=== PATIENT | female | born 1980 | race Caucasian/White ===

== ENCOUNTER 2023-04-25 23:04 | Observation (INO) | payer SELFPAY ==
[2023-04-25 23:09] VITALS: BP 149/99; PULSE 120; RESP 20; TEMP 36.5; O2SAT 98; BMI 56.7
[2023-04-25 23:15] VITALS: O2SAT 97
[2023-04-25 23:20] VITALS: PULSE 134; RESP 15
--- NOTE | 2023-04-25 23:20 | ECG_ITS ---
The [facility] Test Date: 2023-04-25 Pat Name: DALLAS GARRISON Department: Room: - Gender: Female Event Planning Manager: : 1980 Requested By: Order Number: [id number] Reading MD: MIMI TILLMAN Measurements Intervals [place] Rate: 119 P: 58 DE: 152 QRS: 89 QRSD: 76 T: 30 QT: 296 QTc: 366 Interpretive Statements 1120 Sinus tachycardia 4068 Nonspecific Twave abnormality 9140 abnormal rhythm ECG No previous ECG available for comparison Electronically Signed On 04-26-2023 7:19:34 EST by MIMI TILLMAN
[2023-04-25 23:21] VITALS: PULSE 122; RESP 22
--- NOTE | 2023-04-25 23:39 | ED_ITS ---
HPI - General Adult General Chief complaint: Psychiatric Symptoms Stated complaint: back pain mental crisis Time Seen by Provider: 04/25/23 23:28 Source: patient Mode of arrival: Wheelchair Limitations: no limitations History of Present Illness HPI narrative: patient presents complaining of chronic back and hip pain. Describes PT for her back at least a year ago. States she was prescribed Aqua therapy. States she was homeless and moved to [place] to live with her sister. States 3 months ago her sister was kicked out of the mobile home and left her . states she became suicidal and was taken to [facility] in [place]. States there she was diagnosed with syphilis. describes treatment with [facility] G. states it did not work and she was prescribe an oral agent. States they transferred her to [facility] in [facility] for pneumonia. States she has been at the home ever since until today. She was very unhappy with care at correction. States she was wetting herself in bed because she was not able to get out of bed in time to go to the bathroom and she would spend hours sitting in her urine. States her sister came and got her from the home and brought her here . States she is suicidal. States she is still being treated for syphillis. She continues to have bilat hip and lower back pain. She has been using a walker for at least the past year or longer to ambulate. Became very inactive at the correction and gained weight. Difficult time even using her walker now and has been using a wheelchair. Related Data Home Medications Medication Instructions Recorded Confirmed aripiprazole 5 mg tablet 20 mg PO DAILY 04/25/23 04/25/23 clonazepam 1 mg tablet (Klonopin) 1 mg PO DAILY 04/25/23 04/25/23 duloxetine 60 mg capsule,delayed 60 mg PO DAILY 04/25/23 04/25/23 release (Cymbalta) famotidine 20 mg tablet (Pepcid) 20 mg PO DAILY 04/25/23 04/25/23 gabapentin 100 mg capsule 200 mg PO DAILY 04/25/23 04/25/23 prazosin 1 mg capsule 5 mg PO DAILY 04/25/23 04/25/23 Allergies Allergy/AdvReac Type Severity Reaction Status Date / Time metronidazole [From Flagyl] Allergy Hives Verified 04/25/23 23:16 Review of Systems ROS Status of ROS 10 or more systems reviewed and unremark able except as noted in history and below [facility] Social History Smoking status: Current every day smoker Exam Constitutional Vital Signs, click to edit/add: Last Vital Signs Temp 97.7 F 04/25/23 23:09 Pulse 108 H 04/26/23 06:09 Resp 18 04/26/23 06:09 BP 108/80 04/26/23 06:09 Pulse Ox 96 04/26/23 06:09 O2 Del Method Room Air 04/26/23 06:09 Common normals: no apparent distress, oriented x3 and alert Eye Common normals: EOMs intact bilaterally and conjunctivae normal Chest Common normals: inspection of chest normal and palpation of chest normal Respiratory Common normals: normal respiratory effort, no retractions, no use of accessory muscles and clear to auscultation bilaterally Cardio Common normals: regular rate, regular rhythm, S1 normal heart sound and S2 normal heart sound GI Common normals: Normal to inspection, nondistended, normoactive bowel sounds present, soft to palpation and non-tender Extremity Common normals: normal to inspection and full ROM Neuro Common normals: oriented x3, CN's II-XII intact bilaterally, moves all extremities and no focal motor deficits Psych Mood and affect: depressed mood Course Vital Signs Vital signs: Vital Signs Temperature 97.7 F 04/25/23 23:09 Pulse Rate 120 H 04/25/23 23:09 Respiratory Rate 20 04/25/23 23:09 Blood Pressure 149/99 H 04/25/23 23:09 Pulse Oximetry 98 04/25/23 23:09 Oxygen Delivery Method Room Air 04/25/23 23:09 Temperature 97.7 F 04/25/23 23:09 Pulse Rate 108 H 04/26/23 06:09 Respiratory Rate 18 04/26/23 06:09 Blood Pressure 108/80 04/26/23 06:09 Pulse Oximetry 96 04/26/23 06:09 Oxygen Delivery Method Room Air 04/26/23 06:09 Medical Decision Making [facility] Narrative Medical decision making narrative: patient presents complaining of back pain and hip pain for a year or longer. Just released from [facility] in [facility] because she was not happy with her care. She describes urinating on herself because she was not able to get to the bathroom in time and sitting in her urine for hours at the correction because they were short of staff. Her sister picked her up and brought her here. She has been using a walker for more than a year to assist ambulation and states she is walking less since she has been in the correction. Old xrays here 05/21/22 demo nstrates advanced degenerative changes of hip joints bilat. CT lumbar spine tonight demonstrates mod-severe stenosis , disc protrusion, arthritis . compression of L4 and L5 nerve roots. Labs demonstrate leukocytosis. review of old records demonstrated WBC 23.3 01/24/23 at [facility] and WBC 18 05/25/2022 at this hospital. cxray without pneumonia Patient has normal strength of her lower extremities. States she is able to walk with her walker but only for short distance as her legs become weak. Clinically I suspect her legs become weak from deconditioning. She does not have lower extremities neuropathic symptoms patient is suicidal and Mental health contacted [address] looking for a bed. Care transferred at change of shift to Dr jimenez Lab Data Labs: Lab Results 04/25/23 04/26/23 Range/Units 23:55 00:23 WBC 21.9 H (4.0-11.0) 10^3/uL RBC 5.07 (4.20-5.40) 10^6/uL Hgb 11.8 L (12.0-16.0) g/dL Hct 39.3 (36.0-48.0) % MCV 77.5 L (81.0-99.0) fL MCH 23.3 L (26.7-34.0) pg MCHC 30.0 (29.9-35.2) g/dL RDW 17.2 H (11.0-15.0) % Plt Count 534 H (150-450) 10^3/uL MPV 9.6 (9.5-13.5) fL Neut % (Auto) 71.4 (43.0-75.0) % Lymph % (Auto) 17.1 L (20.5-60.0) % [place] % (Auto) 7.9 (1.7-12.0) % Eos % (Auto) 1.8 (0.9-7.0) % Baso % (Auto) 0.8 (0.2-2.0) % Neut # (Auto) 15.7 H (1.4-6.5) 10^3/uL Lymph # (Auto) 3.7 (1.2-3.8) 10^3/uL [place] # (Auto) 1.7 H (0.3-0.8) 10^3/uL Eos # (Auto) 0.4 (0.0-0.7) 10^3/uL Baso # (Auto) 0.2 H (0.0-0.1) 10^3/uL Abs Immat Gran (auto) 0.22 H (0.00-0.03) 10^3/uL Imm/Tot Granulo (auto) 1.0 H (0.0-0.5) % Sodium 139 (136-145) mmol/L Potassium 4.1 (3.5-5.1) mmol/L Chloride 102 (98-107) mmol/L Carbon Dioxide 24.3 (21.0-32.0) mmol/L Anion Gap 16.8 BUN 20.0 H (7.0-18.0) mg/dL Creatinine 0.80 (0.55-1.02) mg/dL Est GFR ( Amer) >60 (>=60) Est GFR (Non-Af Amer) >60 (>=60) BUN/Creatinine Ratio 25.0 Glucose 122 H (74-106) mg/dL Calcium 9.4 (8.5-10.1) mg/dL Total Bilirubin 0.2 (0.2-1.0) mg/dL AST 12 L (15-37) U/L ALT 18 (14-59) U/L Alkaline Phosphatase 57 (46-116) U/L Troponin I High Sens <4.0 L (4.0-51.3) pg/mL Total Protein 8.3 H (6.4-8.2) g/dL Albumin 3.2 L (3.4-5.0) g/dL Globulin 5.1 g/dL Albumin/Globulin Ratio 0.6 Urine Color Lt. yellow (YELLOW) Urine Clarity Clear (CLEAR) Urine pH 5.0 (5.0-9.0) Ur Specific [place] 1.025 (1.005-1.025) Urine Protein Negative (NEG/TRACE) mg/dL Urine Glucose (UA) Negative (NEGATIVE) mg/dL Urine Ketones Negative (NEGATIVE) mg/dL Urine Occult Blood Negative (NEGATIVE) Urine Nitrite Negative (NEGATIVE) Urine Bilirubin Negative (NEGATIVE) Urine Urobilinogen 0.2 (0.2-1.0) EU/dL Ur Leukocyte Esterase Trace A (NEGATIVE) Urine RBC 0-2 (0-2) #/HPF Urine WBC 0-2 A (NONE SEEN) #/HPF Ur Squamous Epith Cells Rare (NONE/RARE) #/LPF Urine Crystals None seen (None Seen) #/HPF Urine Bacteria None seen (NONE SEEN) #/HPF Urine Casts None seen (NONE SEEN) #/LPF Urine Mucus None seen (NONE SEEN) Salicylates 3.6 (<=19.9) mg/dL Urine Opiates Screen Negative (NEGATIVE) Ur Buprenorphine Scrn Negative (NEGATIVE) Ur Oxycodone Screen Negative (NEGATIVE) Urine Methadone Screen Negative (NEGATIVE) Acetaminophen <2.0 L (10.0-30.0) ug/mL Ur Barbiturates Screen Negative (NEGATIVE) U Tricyclic Antidepress Negative (NEGATIVE) Ur Phencyclidine Scrn Negative (NEGATIVE) Ur Amphetamines Screen Negative (NEGATIVE) U Methamphetamines Scrn Negative (NEGATIVE) U Benzodiazepines Scrn Negative (NEGATIVE) Urine Cocaine Screen Negative (NEGATIVE) U Cannabinoids Screen Positive A (NEGATIVE) Ethanol Quant <3 mg/dL Imaging Data Chest x-ray: Radiologist's impression: ITS Impressions Lumbar Spine CT 04/25/23 23:47 IMPRESSION: 1. Multilevel degenerative changes with stenosis worse at the levels of L4-5 and L3-4. Please see the detailed discussion of the individual levels in the body of this report. 2. Left, lateral, intraforaminal protrusion type disc herniation at L5-S1. 2. No fracture or bony displacement. Electronically authenticated by: VERITO CALDWELL Date: 04/26/2023 00:[address] 04/25/23 23:47 IMPRESSION: 1. Advanced, end-stage degenerative changes of both hip joints with no acute osseous abnormality seen. 2. Right adnexal cystic structures measuring up to 3.2 cm. These could be further evaluated with a pelvic ultrasound examination if clinically indicated. Electronically authenticated by: Donna GEORGES Date: 04/26/2023 01:12 Chest X-Ray 04/26/23 01:24 IMPRESSION: 1. Bibasilar airspace opacities are felt to represent atelectasis as the imaged lungs on the CT lumbar spine examination of the same date are clear. 2. There is a 1.3 cm nodular density in the left lower lung, concerning for a pulmonary nodule. This could be further evaluated with a CT of the chest as clinically indicated. Electronically authenticated by: Dnona GEORGES Date: 04/26/2023 02:16 Discharge Plan Discharge Chief Complaint: Psychiatric Symptoms Clinical Impression: Suicidal ideation, Depression, Leukocytosis, Degenerative arthritis of hip, Chronic bilateral low back pain Patient Disposition: Still a Patient Prescriptions / Home Meds: No Action aripiprazole 5 mg tablet 20 mg PO DAILY prazosin 1 mg capsule 5 mg PO DAILY duloxetine [Cymbalta] 60 mg capsule,delayed release(DR/EC) 60 mg PO DAILY clonazepam [Klonopin] 1 mg tablet 1 mg PO DAILY gabapentin 100 mg capsule 200 mg PO DAILY famotidine [Pepcid] 20 mg tablet 20 mg PO DAILY Referrals: DEMETRIA PHILLIPS APRN [Physician] - 1 week
--- NOTE | 2023-04-25 23:47 | CT_ITS ---
The [address] [address] Patient Name: DALLAS GARRISON MRN: [id number] date: 1980 Sex: F Assigned Patient Location: ER Current Patient Location: ER Accession/Order Number: [id number] Exam Date: 04/25/2023 23:59 Report Date: 04/26/2023 01:12 At the request of: SAJI LERMA Procedure: CT pelvis wo con EXAM: CT pelvis wo con HISTORY: pain COMPARISON: None. TECHNIQUE: Noncontrast axial CT images through the pelvis were obtained with coronal and sagittal reformats. Dose reduction techniques were achieved by using automated exposure control and/or adjustment of mA and/or kV according to patient size and/or use of iterative reconstruction technique. FINDINGS: No acute fracture or dislocation is seen. The femoral heads are well-seated in the acetabula. There are advanced, end-stage degenerative changes of both hip joints. There are mild degenerative changes of both sacroiliac joints and the pubic symphysis. There is no disproportionate fatty muscular atrophy about the pelvis. No evidence of bowel obstruction is seen in the imaged lower abdomen or pelvis. The uterus is present. There are a couple right adnexal cystic structures measuring up to 3.2 x 3.1 cm (series 3, image 39). CT/CT pelvis wo con IMPRESSION: 1. Advanced, end-stage degenerative changes of both hip joints with no acute osseous abnormality seen. 2. Right adnexal cystic structures measuring up to 3.2 cm. These could be further evaluated with a pelvic ultrasound examination if clinically indicated. Electronically authenticated by: Donna GEORGES Date: 04/26/2023 01:12
--- NOTE | 2023-04-25 23:47 | CT_ITS ---
[address] [address] Patient Name: DALLAS GARRISON MRN: [id number] date: 1980 Sex: F Assigned Patient Location: ER Current Patient Location: .[facility] Accession/Order Number: [id number] Exam Date: 04/25/2023 23:59 Report Date: 04/26/2023 00:59 At the request of: SAJI LERMA Procedure: CT lumbar spine wo con CT lumbar spine wo con INDICATION: 42 years old; Female.pain Symptom/Location/Duration: Low back pain. Suicidal ideation. TECHNIQUE: CT of the lumbar spine.Contrast None. Sagittal and coronal images as well as axial reconstructions through the disc spaces were produced. Ionizing radiation dose reduced via iterative reconstruction/FBP blend and body size kV/mA adjustment. COMPARISON: None FINDINGS: POSTOPERATIVE CHANGES: None ALIGNMENT AND LORDOSIS: Loss of normal lumbar lordosis. There is scoliosis concave to the right centered at the L2-L3 level. A rotational component is noted. There is grade 1 degenerative spondylolisthesis at L5-L4 and L4-L5. L3 is positioned 2.16 mm anterior L4. L4 is positioned 3.49 mm anterior to L5. No spondylolysis is appreciated. VERTEBRAE: No fracture or vertebral body collapse is seen. No bone destruction is noted. No asymmetric widening of the facets is appreciated. No lytic or blastic lesions. DISC LEVELS: L1-L2: Anterior osteophyte formation. Disc space narrowing posteriorly. No focal disc herniation or bulging. Central canal, neural foramina, lateral recesses are patent. L2-L3: Vacuum disc degeneration. Disc space narrowing, vertebral endplate degeneration with sclerosis. Anterior osteophyte formation. Facet degeneration. Central canal, neural foramina, lateral recesses are patent. There is rotational deformity associated with scoliosis. L3-L4: Vacuum disc degeneration. Grade 1 degenerative spondylolisthesis. Bilateral facet degeneration with ligamentous thickening. Moderate to severe central canal stenosis. Lateral recesses are patent. Mild left foraminal stenosis. L4-L5: Vacuum disc degeneration. Grade 1 degenerative spondylolisthesis. Facet degeneration bilaterally worse on the right. Pseudodisc bulging with protrusion type disc herniation projecting laterally on the right. Moderate to severe central canal stenosis. Severe right-sided foraminal stenosis with compression of the exiting right L4 nerve root secondary to disc material and osteophyte formation. L5-S1: Left, lateral, intraforaminal protrusion type disc herniation. Compression of the left L5 nerve root. Facet degeneration. Central canal patent. Lateral recesses are narrowed but patent. LOWER THORACIC DISCS: At T11-T12 and T12-L1, disc space narrowing is seen with anterior osteophyte formation. Central canal and neural foramina patent. The study does not visualize the distal cord or conus. OTHER: Posterior paraspinal muscles and psoas muscles are intact. No drainable fluid collection. CT/CT lumbar spine wo con IMPRESSION: 1. Multilevel degenerative changes with stenosis worse at the levels of L4-5 and L3-4. Please see the detailed discussion of the individual levels in the body of this report. 2. Left, lateral, intraforaminal protrusion type disc herniation at L5-S1. 2. No fracture or bony displacement. Electronically authenticated by: VERITO CALDWELL Date: 04/26/2023 00:59
--- NOTE | 2023-04-25 23:50 | PC.NURSE ---
Pt tearful and talks about the pain in her lower back and hips. States that she has been asking for a scan or test to see what is wrong with her back. Pt then states that her mother also had the same problems and then on the table having a repeat back surgery. Pt was able to pivot from the cart to the bed side commode to urinate. Pt was unable to lift own legs onto the cart. Pt assisted with getting legs onto bed but does have pain in the lower back/ tail bone area when legs elevated.
[2023-04-25 23:55] VITALS: BP 116/76
[2023-04-25 23:58] VITALS: BP 116/76; PULSE 106; RESP 20; O2SAT 97
[2023-04-26] VITALS (11 sets, daily range): BP systolic 97–120; BP diastolic 57–81; PULSE 80–108; RESP 16–18; TEMP 36.5; O2SAT 91–96; BMI 56.5
[2023-04-26 00:12] LABS: Bilirubin Urine NEGATIVE (NEGATIVE); Blood Urine NEGATIVE (NEGATIVE); Clarity Urine CLEAR (CLEAR); Color Urine LT. YELLOW (YELLOW); Glucose Urine UA NEGATIVE (NEGATIVE); Ketones Urine NEGATIVE (NEGATIVE); Leukocyte Esterase Urine TRACE (NEGATIVE); Nitrite Urine NEGATIVE (NEGATIVE); Protein Urine NEGATIVE (NEG/TRACE); Specific Gravity Urine 1.025 (1.005-1.025); Urobilinogen Urine 0.2 EU/dL (0.2-1.0)
[2023-04-26 00:13] LABS: Urine Microscopic Indicated YES
[2023-04-26 00:24] LABS: Amphetamine Screen Urine NEGATIVE (NEGATIVE); Bacteria Urine NONE SEEN #/HPF (NONE SEEN); Barbiturates Screen Urine NEGATIVE (NEGATIVE); Benzodiazepines Screen Urine NEGATIVE (NEGATIVE); Buprenorphine Screen Urine NEGATIVE (NEGATIVE); Cannabinoid Screen Urine POSITIVE (NEGATIVE); Cocaine Screen Urine NEGATIVE (NEGATIVE); Methadone Screen Urine NEGATIVE (NEGATIVE); Methamphetamines Screen Urine NEGATIVE (NEGATIVE); Opiate Screen Urine NEGATIVE (NEGATIVE); Oxycodone Screen Urine NEGATIVE (NEGATIVE); Phencyclidine Screen Urine NEGATIVE (NEGATIVE); RBC Urine 0-2 #/HPF (0-2); Tricyclic Antidepressant Urine NEGATIVE (NEGATIVE); WBC Urine 0-2 #/HPF (NONE SEEN)
[2023-04-26 00:25] LABS: Cast Seen? NONE SEEN #/LPF (NONE SEEN); Crystals Seen? None Seen #/HPF (None Seen); Mucus Urine NONE SEEN (NONE SEEN); Squamous Epithelial Cell Urine RARE #/LPF (NONE/RARE)
[2023-04-26 00:32] LABS: Basophils Absolute Auto 0.2 10^3/uL (0.0-0.1); Basophils Percent Auto 0.8 % (0.2-2.0); Eosinophils Absolute Auto 0.4 10^3/uL (0.0-0.7); Eosinophils Percent Auto 1.8 % (0.9-7.0); Hematocrit 39.3 % (36.0-48.0); Hemoglobin 11.8 g/dL (12.0-16.0); Immature Granulocytes Abs Auto 0.22 10^3/uL (0.00-0.03); Lymphocytes Absolute Auto 3.7 10^3/uL (1.2-3.8); Lymphocytes Percent Auto 17.1 % (20.5-60.0); Mean Corpuscular Hemoglobin 23.3 pg (26.7-34.0); Mean Corpuscular Volume 77.5 fL (81.0-99.0); Mean Platelet Volume 9.6 fL (9.5-13.5); Monocytes Absolute Auto 1.7 10^3/uL (0.3-0.8); Monocytes Percent Auto 7.9 % (1.7-12.0); Neutrophils Absolute Auto 15.7 10^3/uL (1.4-6.5); Neutrophils Percent Auto 71.4 % (43.0-75.0); Platelet Count 534 10^3/uL (150-450); Red Blood Count 5.07 10^6/uL (4.20-5.40); Red Cell Distribution Width 17.2 % (11.0-15.0); White Blood Count 21.9 10^3/uL (4.0-11.0)
[2023-04-26 00:50] LABS: Alanine Aminotransferase 18 U/L (14-59); Albumin Globulin Ratio 0.6; Albumin Level 3.2 g/dL (3.4-5.0); Alkaline Phosphatase 57 U/L (46-116); Anion Gap 16.8; Aspartate Amino Transferase 12 U/L (15-37); Bilirubin Total 0.2 mg/dL (0.2-1.0); Calcium 9.4 mg/dL (8.5-10.1); Carbon Dioxide 24.3 mmol/L (21.0-32.0); Chloride 102 mmol/L (98-107); Estimated GFR (African America >60 (>=60); Estimated GFR (Non-African Ame >60 (>=60); Globulin 5.1 g/dL; Glucose 122 mg/dL (74-106); Potassium 4.1 mmol/L (3.5-5.1); Sodium 139 mmol/L (136-145); Total Protein 8.3 g/dL (6.4-8.2)
[2023-04-26 00:52] LABS: Salicylate 3.6 mg/dL (<=19.9); Troponin I High Sensitivity <4.0 pg/mL (4.0-51.3)
[2023-04-26 00:54] LABS: Acetaminophen <2.0 ug/mL (10.0-30.0); Ethanol <3 mg/dL
[2023-04-26] MEDS: ACETAMINOPHEN 500 MG TABLET 1000 MG PO (00:54)
--- NOTE | 2023-04-26 01:24 | XR_ITS ---
The [address] [address] Patient Name: DALLAS GARRISON MRN: [id number] date: 1980 Sex: F Assigned Patient Location: ER Current Patient Location: ED.MAIN Accession/Order Number: [id number] Exam Date: 04/26/2023 01:44 Report Date: 04/26/2023 02:16 At the request of: SAJI LERMA Procedure: XR chest 2V EXAM: XR chest 2V HISTORY: pneumonia COMPARISON: Correlation is made with lumbar spine CT examination of the same date. TECHNIQUE: 2 views of the chest were obtained. FINDINGS: The cardiac silhouette is normal in size. There are bibasilar opacities. There is a 1.3 cm nodular density in the left lower lung. There is no significant pneumothorax or pleural effusion. No acute osseous abnormality is seen. XR/XR chest 2V IMPRESSION: 1. Bibasilar airspace opacities are felt to represent atelectasis as the imaged lungs on the CT lumbar spine examination of the same date are clear. 2. There is a 1.3 cm nodular density in the left lower lung, concerning for a pulmonary nodule. This could be further evaluated with a CT of the chest as clinically indicated. Electronically authenticated by: Donna GEORGES Date: 04/26/2023 02:16
[2023-04-26] MEDS: KETOROLAC TROMETHAMINE 60 MG/2 ML VIAL IM (08:30)
[2023-04-26] MEDS: ACETAMINOPHEN 325 MG TABLET 650 MG PO (15:24)
[2023-04-26] MEDS: ARIPIPRAZOLE 5 MG TABLET 20 MG PO (16:50)
[2023-04-26] MEDS: GABAPENTIN 100 MG CAPSULE 200 MG PO (16:50)
[2023-04-26] MEDS: CLONAZEPAM 0.5 MG TABLET 1 MG PO (16:51)
[2023-04-26] MEDS: FAMOTIDINE 20 MG TABLET PO (16:51)
[2023-04-26] MEDS: DULOXETINE HCL 60 MG CAPSULE.DR PO (16:51)
[2023-04-26 19:29] LABS: Basophils Absolute Auto 0.1 10^3/uL (0.0-0.1); Basophils Percent Auto 0.9 % (0.2-2.0); Eosinophils Absolute Auto 0.6 10^3/uL (0.0-0.7); Eosinophils Percent Auto 4.5 % (0.9-7.0); Hematocrit 35.8 % (36.0-48.0); Hemoglobin 10.6 g/dL (12.0-16.0); Immature Granulocytes Pct Auto 0.8 % (0.0-0.5); Lymphocytes Absolute Auto 2.9 10^3/uL (1.2-3.8); Lymphocytes Percent Auto 23.1 % (20.5-60.0); Mean Corpuscular HGB Conc 29.6 g/dL (29.9-35.2); Mean Corpuscular Volume 77.7 fL (81.0-99.0); Mean Platelet Volume 9.9 fL (9.5-13.5); Monocytes Absolute Auto 1.7 10^3/uL (0.3-0.8); Monocytes Percent Auto 13.4 % (1.7-12.0); Neutrophils Absolute Auto 7.3 10^3/uL (1.4-6.5); Neutrophils Percent Auto 57.3 % (43.0-75.0); Platelet Count 461 10^3/uL (150-450); Red Blood Count 4.61 10^6/uL (4.20-5.40); Red Cell Distribution Width 17.3 % (11.0-15.0); White Blood Count 12.7 10^3/uL (4.0-11.0)
[2023-04-26] MEDS: 0.9 % SODIUM CHLORIDE 1,000 ML 125 ML IV (19:33)
[2023-04-26 19:41] LABS: Anion Gap 13.2; BUN Creatinine Ratio 43.7; Calcium 9.1 mg/dL (8.5-10.1); Carbon Dioxide 26.1 mmol/L (21.0-32.0); Chloride 106 mmol/L (98-107); Estimated GFR (African America >60 (>=60); Estimated GFR (Non-African Ame >60 (>=60); Glucose 121 mg/dL (74-106); Potassium 4.3 mmol/L (3.5-5.1); Sodium 141 mmol/L (136-145)
[2023-04-26] MEDS: ENOXAPARIN SODIUM 40 MG/0.4 ML SYRINGE SUBQ (22:23)
[2023-04-27] MEDS: METHOCARBAMOL 500 MG TABLET PO ×3 (05:03→21:35)
[2023-04-27] MEDS: GABAPENTIN 300 MG CAPSULE PO ×3 (05:03→21:35)
[2023-04-27 05:15] VITALS: BP 117/69; PULSE 90; RESP 18; TEMP 36.5; O2SAT 95
[2023-04-27 05:32] LABS: Basophils Absolute Auto 0.1 10^3/uL (0.0-0.1); Basophils Percent Auto 0.9 % (0.2-2.0); Eosinophils Absolute Auto 0.7 10^3/uL (0.0-0.7); Eosinophils Percent Auto 5.4 % (0.9-7.0); Hematocrit 35.5 % (36.0-48.0); Hemoglobin 10.3 g/dL (12.0-16.0); Immature Granulocytes Abs Auto 0.13 10^3/uL (0.00-0.03); Lymphocytes Absolute Auto 3.4 10^3/uL (1.2-3.8); Lymphocytes Percent Auto 26.6 % (20.5-60.0); Mean Corpuscular Hemoglobin 22.9 pg (26.7-34.0); Mean Corpuscular Volume 79.1 fL (81.0-99.0); Mean Platelet Volume 10.2 fL (9.5-13.5); Monocytes Absolute Auto 1.4 10^3/uL (0.3-0.8); Monocytes Percent Auto 11.1 % (1.7-12.0); Neutrophils Absolute Auto 7.1 10^3/uL (1.4-6.5); Platelet Count 450 10^3/uL (150-450); Red Blood Count 4.49 10^6/uL (4.20-5.40); Red Cell Distribution Width 17.3 % (11.0-15.0); White Blood Count 12.9 10^3/uL (4.0-11.0)
[2023-04-27 06:04] LABS: Alanine Aminotransferase 13 U/L (14-59); Albumin Globulin Ratio 0.6; Albumin Level 2.5 g/dL (3.4-5.0); Alkaline Phosphatase 45 U/L (46-116); Anion Gap 12.6; Aspartate Amino Transferase 8 U/L (15-37); BUN Creatinine Ratio 34.4; Bilirubin Total 0.2 mg/dL (0.2-1.0); Calcium 8.5 mg/dL (8.5-10.1); Carbon Dioxide 22.4 mmol/L (21.0-32.0); Chloride 107 mmol/L (98-107); Estimated GFR (African America >60 (>=60); Estimated GFR (Non-African Ame >60 (>=60); Globulin 4.1 g/dL; Glucose 97 mg/dL (74-106); Sodium 138 mmol/L (136-145); Total Protein 6.6 g/dL (6.4-8.2)
[2023-04-27] MEDS: LIDOCAINE 5% PATCH 1 PATCH TOPICAL (10:15)
[2023-04-27] MEDS: ARIPIPRAZOLE 5 MG TABLET 20 MG PO (10:16)
[2023-04-27] MEDS: CLONAZEPAM 0.5 MG TABLET 1 MG PO (10:16)
[2023-04-27] MEDS: FAMOTIDINE 20 MG TABLET PO (10:17)
[2023-04-27] MEDS: DULOXETINE HCL 60 MG CAPSULE.DR PO (10:17)
--- NOTE | 2023-04-27 10:35 | CM.NOTE ---
Rounds made with Dr. Epstein, discussed with pt plan of care and need for Medicaid. Pt's sister is bringing paperwork in today for Medicaid. Dr. Epstein requesting pt's records from [facility]( [facility] ) where pt was last treated.
[2023-04-27] MEDS: ACETAMINOPHEN 300 MG/ 30 MG CODEINE TABLET 1 TAB PO (11:13)
--- NOTE | 2023-04-27 11:22 | P.HP_ITS ---
<Statement entered by Kwame Epstein MD - 04/27/23 19:38> Patient seen and examined, agree with assessment and plan below. Not able to ambulate well and weakness in legs for over a year. Severe pain and arthritis. Initially expressed SI but denies intention to hurt self. Not accepted at several inpatient psychiatric facilities. Admitted for PT/OT. medical staff services coordinator consulted. Diagnosis: 1. Degenerative lumbar spinal stenosis 2. Bilateral OA hips 3. Unable to ambulate 4. Leukocytosis 5. Suicidal ideation 6. Borderline personality disorder 7. Bipolar 8. Syphilis H&P: HPI History of Present Illness Chief complaint: back pain mental crisis Inability to ambulate Narrative: 04/27/23 0950 This is a 42-year-old female patient with a past medical history as outlined below including bipolar disorder, schizophrenic disorder, borderline personality disorder, chronic low back and bilateral hip pain with inability to stand and ambulate due to pain; who presented to the ED 2 days ago reporting suicidal ideation. Work up in the ED revealed chronic, degenerative changes of the bilat hips and mod-severe stenosis of the lumbar spine with compression of L4 & L5 nerve roots on CT imaging. Neuropathic symptoms were not identified on exam. CXR revealed BLL atelectasis w/o infiltrate, UA was neg. Leukocytosis as noted on initial labs, but has nearly resolved without any antibiotic treatment as no infectious source was identified and the pt is afebrile. Transfer to a [facility] was initially planned, but a facility could not be found to take her as she could not be independent d/t her inability to walk. After 2 days in the ED pending placement, the pt was no longer suicidal and she was admitted to observation at this facility for back pain, self-care deficit, and inability to ambulate. The patient has a complicated recent medical history. 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 She moved to [place] to live with a sister near [place] about 1 yr ago, and then to [place] to live with a different sister 8 mos ago. While she was living in [place] she apparently became homeless after her sister was evicted from her trailer. She was found by police in the trailer and was transported to an ED for evaluation as the patient was complaining of suicidality at that time. She was admitted to the hospital with sepsis, pneumonia, and UTI, along with suicidal ideation. During that admission an STD workup was obtained and a syphilis screen was positive. ID was consulted and a complete workup was performed. An LP was obtained to rule out neurosyphilis, and CT and MRI imaging of the spine to rule out discitis or epi dural abscess. Imaging of the spine revealed chronic degenerative changes only. An HIV test was nonreactive, hepatitis panel was negative, and C/G was negative. The syphilis RPR was negative and FTA?ABS was positive indicating latent syphilis. The CSF sample was VDRL negative, thus neurosyphilis was ruled out. She was treated with PCN G prior to dc per ID recommendations. She was also seen by psychiatry and started on Abilify in addition to her Cymbalta and her suicidal ideation had apparently resolved. She was discharged to a SNF for rehab strengthening after a nearly 2 week hospitalization, d/t her persistent, severe back pain and limited mobility. She was referred to neurosurgery as an outpatient regarding her lumbar back pain. Unfortunately her insurance lapsed just prior to that appointment and the appointment was cancelled pending new insurance authorization. She also reports that she was seen by Gynecology within the last week and was told that her Syphilis was still there and was prescribed a 28 day course of treatment. We cannot find record of this prescription, but we do not have medical records from the SNF, just from her hospital stay at [facility]. The pt was still at the SNF until just prior to presentation at this ED. She reports dissatisfaction with her care at the SNF, and her sister who lives in [place] picked her up from there on 04/25/23 and brought her directly to our ED, c/o again of suicidal ideation if something isn't done to help me . The pt reports that her sister who lives in [place] is essentially homeless herself, and is staying on a friend's couch. The pt is thus also homeless at this time. At the time of my exam the patient is resting comfortably in bed. She reports severe pain with standing and ambulation attempts. Apparently she was walking reasonably well using a walker while she was still receiving PT services at the SNF, but those were discontinued after 45 days due to insurance issues. More recently she has only been able to stand and pivot and take a few steps due to her severe pain and weakness. She continues to deny active suicidal ideation, but becomes tearful and states she will consider suicide if she cannot find resolution of her severe pain. She will remain in observation pending social work assistance with a Medicaid application in [place], and placement at a [facility] facility. Review of Systems ROS Status of ROS 10 or more systems reviewed and unremark able except as noted in history and below [facility] Medical History (Updated 04/27/23 @ 12:13 by Rubi Rae NP) Bilateral primary osteoarthritis of hip ?M16.0 - Bilateral primary osteoarthritis of hip (ICD-10) Degenerative lumbar spinal stenosis ?M48.061 - Spinal stenosis, lumbar region without neurogenic claudication (ICD-10) Syphilis (acquired) ?A53.9 - Syphilis, unspecified (ICD-10) Unable to ambulate ?R26.2 - Difficulty in walking, not elsewhere classified (ICD-10) Bipolar 1 disorder ?F31.9 - Bipolar disorder, unspecified (ICD-10) Borderline personality disorder ?F60.3 - Borderline personality disorder (ICD-10) Chronic bilateral low back pain ?M54.50 - Low back pain, unspecified (ICD-10) ?G89.29 - Other chronic pain (ICD-10) Degenerative arthritis of hip ?M16.9 - Osteoarthritis of hip, unspecified (ICD-10) Depression ?F32.A - Depression, unspecified (ICD-10) Tuberculosis ?A15.9 - Respiratory tuberculosis unspecified (ICD-10) Herniated disc Arthritis ?M19.90 - Unspecified osteoarthritis, unspecified site (ICD-10) Schizophrenic disorder ?F20.9 - Schizophrenia, unspecified (ICD-10) MRSA (methicillin resistant Staphylococcus aureus) ?A49.02 - Methicillin resistant Staphylococcus aureus infection, unspecified site (ICD-10) Staph infection ?B95.8 - Unspecified staphylococcus as the cause of diseases classified elsewhere (ICD-10) Ectopic ?O00.90 - Unspecified ectopic without intrauterine (ICD- 10) Surgical History Hx of tonsillectomy ?Z90.89 - Acquired absence of other organs (ICD-10) Family History Other Family history of cancer Social History Within the past year, how often did you have a drink containing alcohol: monthly or less Within the past year, how many standard drinks containing alcohol did you have on a typical day: 1 or 2 Within the past year, how often did you have six or more drinks on one occasion: never Total score: 0 Score interpretation: A score less than 3 is consistent with normal alcohol consumption. Smoking status: Current some day smoker Non-prescribed substance use: cannabis (any form) Highest level of school completed/degree received: high school graduate Little interest or pleasure in doing things: more than half the days Feeling down, depressed, or hopeless: more than half the days Feel stressed/tense/nervous/anxious/difficulty sleeping: very much Meds Home Medications and Allergies Home Medications Medication Instructions Recorded Confirmed Type aripiprazole 5 mg tablet 20 mg PO DAILY 04/25/23 04/25/23 History clonazepam 1 mg tablet (Klonopin) 1 mg PO DAILY 04/25/23 04/25/23 History duloxetine 60 mg capsule,delayed 60 mg PO DAILY 04/25/23 04/25/23 History release (Cymbalta) famotidine 20 mg tablet (Pepcid) 20 mg PO DAILY 04/25/23 04/25/23 History gabapentin 100 mg capsule 200 mg PO DAILY 04/25/23 04/25/23 History prazosin 1 mg capsule 5 mg PO DAILY 04/25/23 04/25/23 History acetaminophen 300 mg-codeine 30 mg 1 tab PO Q8H 04/26/23 04/26/23 History tablet acetaminophen 325 mg capsule 325 mg PO Q4H PRN fever or pain 04/26/23 04/26/23 History aripiprazole 20 mg tablet (Abilify) 20 mg PO DAILY 04/26/23 04/26/23 History gabapentin 300 mg capsule 300 mg PO TID 04/26/23 04/26/23 History ibuprofen 800 mg tablet 800 mg PO TID 04/26/23 04/26/23 History lidocaine 4 % topical patch 1 patch topical DAILY 04/26/23 04/26/23 History (Aspercreme (lidocaine)) methocarbamol 500 mg tablet 500 mg PO Q8H 04/26/23 04/26/23 History tramadol 50 mg tablet 50 mg PO Q8H 04/26/23 04/26/23 History Allergies Allergy/AdvReac Type Severity Reaction Status Date / Time metronidazole [From Flagyl] Allergy Hives Verified 04/25/23 23:16 Exam Constitutional Vital Signs, click to edit/add: Last Vital Signs Temp 97.7 F 04/27/23 05:15 Pulse 90 04/27/23 05:15 Resp 18 04/27/23 05:15 BP 117/69 04/27/23 05:15 Pulse Ox 95 04/27/23 05:15 O2 Del Method Room Air 04/27/23 05:15 Common normals: no apparent distress, oriented x3, alert and well nourished General appearance: cooperative Nutritional appearance: obese morbidly obese Orientation/consciousness: Yes awake HENMT Common normals: normocephalic, head/scalp atraumatic, hearing grossly normal bilaterally, external nose normal and moist oral mucous membranes Eye Common normals: PERRL, EOMs intact bilaterally, conjunctivae normal and no scleral icterus Alignment: alignment normal Chest Common normals: inspection of chest normal Chest: symmetrical chest wall rise Respiratory Common normals: normal respiratory effort, no retractions, no use of accessory muscles and clear to auscultation bilaterally Effort & inspection: able to speak in complete sentences Auscultation: diminished lung sounds (BLL) Cardio Common normals: no JVD, regular rate, regular rhythm, S1 normal heart sound, S2 normal heart sound, no gallops, no clicks, no murmurs, no rub and peripheral pulses 2+ throughout GI Common normals: Normal to inspection, nondistended, normoactive bowel sounds present, soft to palpation, non-tender, no hepatosplenomegaly, no masses and no bruits Bladder/kidney exam: bladder normal to palpation Extremity Common normals: normal capillary refill and no pedal edema General: normal exam except as noted; no clubbing and no cyanosis Neuro Angle Inlet Coma Scale: GCS not evaluated Common normals: CN's II-XII intact bilaterally, moves all extremities, no focal motor deficits and no sensory deficits noted Speech: speech normal Psych Common normals: mental status grossly normal, thought process normal, affect normal and activity/motor behavior normal Mood and affect: depressed mood and tearful Results Labs Labs: Short CBC 04/26/23 04/27/23 Range/Units 19:20 05:02 WBC 12.7 H 12.9 H (4.0-11.0) 10^3/uL Hgb 10.6 L 10.3 L (12.0-16.0) g/dL Hct 35.8 L 35.5 L (36.0-48.0) % Plt Count 461 H 450 (150-450) 10^3/uL BMP 04/26/23 04/27/23 19:20 05:02 Sodium 141 138 Potassium 4.3 4.0 Chloride 106 107 Carbon Dioxide 26.1 22.4 BUN 31.0 H 21.0 H Creatinine 0.71 0.61 Glucose 121 H 97 Calcium 9.1 8.5 Liver Function 04/27/23 Range/Units 05:02 Total Bilirubin 0.2 (0.2-1.0) mg/dL AST 8 L (15-37) U/L ALT 13 L (14-59) U/L Alkaline Phosphatase 45 L (46-116) U/L Albumin 2.5 L (3.4-5.0) g/dL Pulse Oximetry Attestation: I have reviewed the pertinent pulse oximetry results. Assessment and Plan Assessment and Plan (1) Unable to ambulate: Assessment and Plan: CHRONIC * Adm obs * d/t degenerative lumbar stenosis and severe DJD of bilat hips * PT/OT consults for eval and treatment * Consult SS for assistance w/ medicaid application and SNF referral (2) Degenerative lumbar spinal stenosis: Assessment and Plan: CHRONIC * Continue previous PRN tx w/ Robaxin, T3, Tramadol. Lidocaine patch daily. * PT/OT eval and treat * Likely re-initiate a referral to neuro spine after discharge (3) Leukocytosis: Assessment and Plan: ACUTE on CHRONIC * No identified infectious source - CXR and UA neg * BC x 2 pending * Pt remains afebrile * Leukocytosis trending down * No ABX at this time * CBC, CMP daily (4) Suicidal ideation: Assessment and Plan: ACUTE ON CHRONIC * Resolved while still in ED * Pt reports suicidal thoughts d/t chronic pain and inability to care for self. Denies current ideation (5) Bipolar 1 disorder: Assessment and Plan: CHRONIC * Continue home Cymbalta, abilify, and Klonopin (6) Schizophrenic disorder: Assessment and Plan: CHRONIC * See bipolar disorder (7) Borderline personality disorder: Assessment and Plan: CHRONIC * See bipolar disorder (8) Syphilis (acquired): Assessment and Plan: CHRONIC * Start Doxycycline 100 mg BID x 28 day course for suspected persistent latent syphilis. * No identifiable symptoms of active syphilis * Attempt to obtain records from [facility] ([place])
[2023-04-27 13:33] VITALS: BP 104/72; PULSE 97; RESP 18; TEMP 36.6; O2SAT 93
[2023-04-27] MEDS: DOXYCYCLINE MONOHYDRATE 100 MG CAPSULE PO ×2 (13:42→21:35)
--- NOTE | 2023-04-27 13:59 | CM.NOTE ---
Spoke with pt regarding Medicaid application, pt was waiting for sister to come in to assist her with filling out application. Pt's sister unable to come to hospital d/t having no money to afford to put gas into vehicle. Medicaid application printed out for patient and will assist her in completing application.
--- NOTE | 2023-04-27 14:20 | CM.NOTE ---
Faxed Medicaid application to [employer].
--- NOTE | 2023-04-27 14:20 | SWNOTE1 ---
MIRTHA has been speaking with case management. Pt is a self pay, looking for placement. Pt did complete medicaid application, it was faxed over to [employer]. MIRTHA did reach out to Becky at [employer] and [facility] services in regards to this patient to see if there was anything we could do to speed up the process. MIRTHA called and spoke to Marifer at [facility], they will look over referral and she will see what the business office says in regards to pending medicaid.
--- NOTE | 2023-04-27 14:29 | CM.NOTE ---
Faxed Doctor's progress notes, vitals, labs, x-rays, PT and OT notes to [facility] for new referral.
--- NOTE | 2023-04-27 15:32 | SWNOTE1 ---
SW received call back from [facility] and they are not able to accept as they feel like they can not care for her properly and she needs a facility that can help with her psych history.
--- NOTE | 2023-04-27 15:44 | SWNOTE1 ---
[facility] recommended [facility] as they have proper psych assistance at facility. MIRTHA sent referral to [facility]. MIRTHA spoke with Rashmi at central intake and she will look for referral. MIRTHA sent face sheet, er note, physician notes, labs, vitals, med list, PT/OT.
[2023-04-27 21:07] VITALS: BP 100/61; PULSE 93; RESP 18; TEMP 37.1; O2SAT 93
[2023-04-28 04:57] LABS: Basophils Absolute Auto 0.2 10^3/uL (0.0-0.1); Basophils Percent Auto 1.1 % (0.2-2.0); Eosinophils Absolute Auto 0.7 10^3/uL (0.0-0.7); Eosinophils Percent Auto 4.8 % (0.9-7.0); Hematocrit 35.1 % (36.0-48.0); Hemoglobin 10.4 g/dL (12.0-16.0); Immature Granulocytes Abs Auto 0.14 10^3/uL (0.00-0.03); Immature Granulocytes Pct Auto 0.9 % (0.0-0.5); Lymphocytes Percent Auto 26.7 % (20.5-60.0); Mean Corpuscular HGB Conc 29.6 g/dL (29.9-35.2); Mean Corpuscular Hemoglobin 23.4 pg (26.7-34.0); Mean Corpuscular Volume 78.9 fL (81.0-99.0); Monocytes Absolute Auto 1.8 10^3/uL (0.3-0.8); Monocytes Percent Auto 11.9 % (1.7-12.0); Neutrophils Absolute Auto 8.2 10^3/uL (1.4-6.5); Neutrophils Percent Auto 54.6 % (43.0-75.0); Platelet Count 453 10^3/uL (150-450); Red Blood Count 4.45 10^6/uL (4.20-5.40); Red Cell Distribution Width 17.3 % (11.0-15.0); White Blood Count 15.1 10^3/uL (4.0-11.0)
[2023-04-28] MEDS: GABAPENTIN 300 MG CAPSULE PO (05:27)
[2023-04-28] MEDS: METHOCARBAMOL 500 MG TABLET PO ×3 (05:27→21:24)
[2023-04-28 05:30] LABS: Alanine Aminotransferase 17 U/L (14-59); Albumin Globulin Ratio 0.6; Albumin Level 2.6 g/dL (3.4-5.0); Alkaline Phosphatase 45 U/L (46-116); Anion Gap 12.5; Aspartate Amino Transferase 8 U/L (15-37); BUN Creatinine Ratio 31.8; Bilirubin Total 0.2 mg/dL (0.2-1.0); Calcium 8.7 mg/dL (8.5-10.1); Carbon Dioxide 25.6 mmol/L (21.0-32.0); Chloride 107 mmol/L (98-107); Estimated GFR (African America >60 (>=60); Estimated GFR (Non-African Ame >60 (>=60); Globulin 4.2 g/dL; Glucose 95 mg/dL (74-106); Potassium 4.1 mmol/L (3.5-5.1); Sodium 141 mmol/L (136-145); Total Protein 6.8 g/dL (6.4-8.2)
[2023-04-28 05:33] VITALS: BP 117/74; PULSE 79; RESP 18; TEMP 36.6; O2SAT 94
[2023-04-28 08:27] VITALS: BP 132/79; PULSE 106; RESP 18; TEMP 36.6; O2SAT 92
--- NOTE | 2023-04-28 08:58 | CM.NOTE ---
Updated pt that [facility] was unable to take her pending Medicaid. Explained to pt referral now sent to [facility], pt verbalizes understanding.
[2023-04-28] MEDS: ARIPIPRAZOLE 5 MG TABLET 20 MG PO (09:57)
[2023-04-28] MEDS: LIDOCAINE 5% PATCH 1 PATCH TOPICAL (09:57)
[2023-04-28] MEDS: DULOXETINE HCL 60 MG CAPSULE.DR PO ×2 (09:58→21:24)
[2023-04-28] MEDS: FAMOTIDINE 20 MG TABLET PO (09:58)
[2023-04-28] MEDS: TRAMADOL HCL 50 MG TABLET PO (09:58)
[2023-04-28] MEDS: CLONAZEPAM 0.5 MG TABLET 1 MG PO (09:58)
[2023-04-28] MEDS: DOXYCYCLINE MONOHYDRATE 100 MG CAPSULE PO (09:58)
--- NOTE | 2023-04-28 10:35 | SWNOTE1 ---
MIRTHA called and left message for Rashmi at [facility]. MIRTHA called Charla at [facility] and she just now was able to pull up referral and will review. MIRTHA and Charla spoke about pt and her needs. Charla is going to email MIRTHA a form that there billers will need in regards to medicaid so they can check to see if she qualifies.
--- NOTE | 2023-04-28 10:52 | SWNOTE1 ---
MIRTHA printed forms for pt to fill out and MIRTHA will send back to Charla at [facility] once they are completed.
--- NOTE | 2023-04-28 11:22 | CM.NOTE ---
Rounds made with Dr. Epstein, discussed adjusting medications for pain control. Continue PT for strengthening.
--- NOTE | 2023-04-28 11:24 | REH.PTDLY ---
Physical Therapy Daily Note PT Daily Note/Assess Start: 04/27/23 09:42 Freq: Status: Active Protocol: Document 04/28/23 11:12 [email or web address] (Rec: 04/28/23 11:24 KARELY [id number]) Physical Therapy Daily Note/Assessment Time In 10:43 Time Out 10:54 Subjective Pt reports she just got back into bed 3 minutes ago from sitting in chair, back and hip pain is really bad right now per pt. Pt reports she will do therapy though. Therapeutic Exercise Minutes (minutes) 4 Therapeutic Exercise Units 0 Therapeutic Exercise Treatment Instructed in seated LAQ, marching, and hip abd 10x ea with B LEs sitting at EOB for postural strength as well. Therapeutic Activity Minutes (minutes) 7 Therapeutic Activity Units 1 Bed Mobility Ability Moderate Assist Chair Transfer Ability Standby Assistance Therapeutic Activity Comments Pt able to perform supine to sit transfers SBA with use of bed rails. Sit to stand transfer SBA. Gait training with pt leaning on forearms with RW due to pain ambulating 5 feet and then having to sit down because of pain. Pt then stands again and ambulates 5 feet back to bed. Requires Mod A with B LEs with sit to supine transfer. Total Therapy Minutes 11 Total Physical Therapy Units 1 Daily Note Summary Pt has high pain levels at this time limiting gait tolerance. Pt almost in tears as she gets back to bed post rx, states 'a person shouldn't have to feel this bad.' Pt hoping to go to SNF upon DC to regain strength and stamina.
--- NOTE | 2023-04-28 12:26 | P.PN_ITS ---
<Statement entered by Kwame Epstein MD - 04/28/23 13:11> Patient seen and examined, agree with assessment and plan below. Continues to c/o pain. Reviewed records and resumed oral doxycycline for syphylis. Started PT/OT. Information sent to SNF for placement. Increase neurontin and try norco for pain. Diagnosis: 1. Degenerative lumbar spinal stenosis 2. Bilateral OA hips 3. Unable to ambulate 4. Leukocytosis 5. Suicidal ideation 6. Borderline personality disorder 7. Bipolar 8. Syphilis Progress Note: Subjective Subjective Interval history: 04/28/23 1010 The patient is sitting up in a bedside chair at the time of my exam. Overall, her affect and mood is improved since yesterday. She continues to complain of severe pain with standing and ambulation to her lumbar spine and bilateral hips. She was seen in consult by PT/OT and recommendations are noted. After con ferring with my attending physician, Dr. Epstein, we will increase her home gabapentin dose to 600 mg 3 times daily, and change her as needed pain medication to Dodson. Will continue her home Lidoderm patch as previously prescribed. The patient completed her Medicaid application yesterday and it was faxed by social work supervisor to the appropriate agencies. A referral has been sent to a local SNF with acceptance still pending. Exam Constitutional Vital Signs, click to edit/add: Last Vital Signs Temp 97.9 F 04/28/23 08:27 Pulse 106 H 04/28/23 08:27 Resp 18 04/28/23 08:27 BP 132/79 04/28/23 08:27 Pulse Ox 92 L 04/28/23 08:27 O2 Del Method Room Air 04/28/23 08:27 Common normals: no apparent distress, oriented x3 and alert General appearance: cooperative Orientation/consciousness: Yes awake HENMT Common normals: normocephalic, head/scalp atraumatic and hearing grossly normal bilaterally Eye Common normals: PERRL, EOMs intact bilaterally, conjunctivae normal and no scleral icterus General eye: normal appearance of both eyes Chest Common normals: inspection of chest normal Chest: symmetrical chest wall rise Respiratory Common normals: normal respiratory effort, no use of accessory muscles and clear to auscultation bilaterally Effort & inspection: able to speak in complete sentences Cardio Common normals: regular rate, regular rhythm, S1 normal heart sound, S2 normal heart sound, no murmurs and peripheral pulses 2+ throughout GI Common normals: Normal to inspection, nondistended, normoactive bowel sounds present, soft to palpation, non-tender and no hepatosplenomegaly Bladder/kidney exam: bladder normal to palpation Extremity Common normals: normal to inspection and no calf tenderness General: edema (Trace bilat insteps); no clubbing and no cyanosis Neuro Common normals: CN's II-XII intact bilaterally, moves all extremities, no focal motor deficits and no sensory deficits noted Psych Common normals: mental status grossly normal Progress Note: Objective Labs Labs: Short CBC 04/28/23 Range/Units 04:26 WBC 15.1 H (4.0-11.0) 10^3/uL Hgb 10.4 L (12.0-16.0) g/dL Hct 35.1 L (36.0-48.0) % Plt Count 453 H (150-450) 10^3/uL BMP 04/28/23 04:26 Sodium 141 Potassium 4.1 Chloride 107 Carbon Dioxide 25.6 BUN 21.0 H Creatinine 0.66 Glucose 95 Calcium 8.7 Liver Function 04/28/23 Range/Units 04:26 Total Bilirubin 0.2 (0.2-1.0) mg/dL AST 8 L (15-37) U/L ALT 17 (14-59) U/L Alkaline Phosphatase 45 L (46-116) U/L Albumin 2.6 L (3.4-5.0) g/dL Progress Note: A&P Assessment and Plan (1) Unable to ambulate: Assessment and Plan: CHRONIC * d/t chronic degenerative lumbar stenosis (w/ L4 nerve root compression) and severe DJD of bilat hips, complicated by morbid obesity * PT/OT consults for eval and treatment * Consult SS for assistance w/ medicaid application and SNF referral - pending (2) Degenerative lumbar spinal stenosis: Assessment and Plan: CHRONIC * Continue home Robaxin and Lidocaine patch * Increase home gabapentin to 600 mg TID * D/C home PRN tramadol/T3s * Start Dodson 5/325 QID PRN - monitor response * PT/OT eval and treat * Likely re-initiate a referral to neuro spine after discharge (3) Leukocytosis: Assessment and Plan: ACUTE on CHRONIC * No identified infectious source - CXR and UA neg * BC x 2 still pending * Pt remains afebrile * Leukocytosis trending up today - see Syphilis below * CBC, CMP daily (4) Suicidal ideation: Assessment and Plan: ACUTE ON CHRONIC * Resolved while still in ED * Pt reports suicidal thoughts d/t chronic pain and inability to care for self. * Continues to deny current ideation (5) Bipolar 1 disorder: Assessment and Plan: CHRONIC * Continue home Cymbalta, Abilify, and Klonopin (6) Schizoaffective disorder: Assessment and Plan: CHRONIC * See bipolar disorder (7) Syphilis (acquired): Assessment and Plan: CHRONIC * Continue Doxycycline 100 mg BID x 28 day course for suspected persistent latent syphilis. * No identifiable symptoms of active syphilis * Records from [facility] ([place]) were obtained today which confirm Doxy prescription was ordered x 28 days, last dose due on 04/21/23 (8) Major depressive disorder, recurrent: Assessment and Plan: CHRONIC * See BiPolar disorder
--- NOTE | 2023-04-28 13:01 | SWNOTE1 ---
SW went back in room and got the paperwork from pt and sent to [place].
[2023-04-28 13:24] VITALS: BP 103/62; PULSE 96; RESP 18; TEMP 36.8; O2SAT 93
[2023-04-28] MEDS: GABAPENTIN 300 MG CAPSULE 600 MG PO ×2 (13:32→21:24)
--- NOTE | 2023-04-28 14:50 | SWNOTE1 ---
MIRTHA called Charla at [facility] to check on referral. 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 Charla called the facility and pt just left the facility on April 25 and came here on the . She voiced pt still has [place] medicaid and she is not sure how this will affect things. Charla will call once they have finished reviewing and have an answer in regards to the medicaid.
[2023-04-28] MEDS: HYDROCODONE/ACET 5-325 MG TABLET 1 TAB PO (17:20)
[2023-04-28 19:28] VITALS: RESP 18
[2023-04-28 21:42] VITALS: BP 121/56; PULSE 86; RESP 16; TEMP 37.2; O2SAT 98
[2023-04-29] MEDS: HYDROCODONE/ACET 5-325 MG TABLET 1 TAB PO ×2 (01:51→08:41)
[2023-04-29] MEDS: METHOCARBAMOL 500 MG TABLET PO ×3 (05:18→20:27)
[2023-04-29] MEDS: GABAPENTIN 300 MG CAPSULE 600 MG PO ×3 (05:18→20:26)
[2023-04-29 05:36] VITALS: BP 171/99; PULSE 87; RESP 18; TEMP 36.6; O2SAT 92
[2023-04-29 05:44] LABS: Alanine Aminotransferase 14 U/L (14-59); Albumin Globulin Ratio 0.6; Albumin Level 2.6 g/dL (3.4-5.0); Alkaline Phosphatase 46 U/L (46-116); Anion Gap 14.4; Aspartate Amino Transferase 8 U/L (15-37); BUN Creatinine Ratio 34.3; Bilirubin Total 0.2 mg/dL (0.2-1.0); Calcium 8.6 mg/dL (8.5-10.1); Carbon Dioxide 24.5 mmol/L (21.0-32.0); Chloride 106 mmol/L (98-107); Estimated GFR (African America >60 (>=60); Estimated GFR (Non-African Ame >60 (>=60); Globulin 4.3 g/dL; Glucose 93 mg/dL (74-106); Potassium 3.9 mmol/L (3.5-5.1); Sodium 141 mmol/L (136-145); Total Protein 6.9 g/dL (6.4-8.2)
[2023-04-29 05:48] LABS: Basophils Absolute Auto 0.2 10^3/uL (0.0-0.1); Basophils Percent Auto 1.4 % (0.2-2.0); Eosinophils Absolute Auto 0.7 10^3/uL (0.0-0.7); Eosinophils Percent Auto 4.8 % (0.9-7.0); Hematocrit 35.8 % (36.0-48.0); Hemoglobin 10.6 g/dL (12.0-16.0); Immature Granulocytes Abs Auto 0.13 10^3/uL (0.00-0.03); Immature Granulocytes Pct Auto 0.9 % (0.0-0.5); Lymphocytes Absolute Auto 3.8 10^3/uL (1.2-3.8); Lymphocytes Percent Auto 25.7 % (20.5-60.0); Mean Corpuscular HGB Conc 29.6 g/dL (29.9-35.2); Mean Corpuscular Hemoglobin 23.5 pg (26.7-34.0); Mean Corpuscular Volume 79.4 fL (81.0-99.0); Mean Platelet Volume 10.3 fL (9.5-13.5); Monocytes Absolute Auto 1.5 10^3/uL (0.3-0.8); Monocytes Percent Auto 10.4 % (1.7-12.0); Neutrophils Absolute Auto 8.3 10^3/uL (1.4-6.5); Neutrophils Percent Auto 56.8 % (43.0-75.0); Platelet Count 445 10^3/uL (150-450); Red Blood Count 4.51 10^6/uL (4.20-5.40); Red Cell Distribution Width 17.5 % (11.0-15.0); White Blood Count 14.7 10^3/uL (4.0-11.0)
[2023-04-29] MEDS: IBUPROFEN 400 MG TABLET 800 MG PO (08:41)
[2023-04-29] MEDS: ARIPIPRAZOLE 5 MG TABLET 20 MG PO (08:41)
[2023-04-29] MEDS: CLONAZEPAM 0.5 MG TABLET 1 MG PO (08:41)
[2023-04-29] MEDS: FAMOTIDINE 20 MG TABLET PO (08:41)
[2023-04-29] MEDS: DULOXETINE HCL 60 MG CAPSULE.DR PO ×2 (08:41→20:26)
[2023-04-29] MEDS: LIDOCAINE 5% PATCH 1 PATCH TOPICAL (08:42)
--- NOTE | 2023-04-29 09:48 | SWNOTE1 ---
MIRTHA called Charla at [facility], no answer left voicemail. MIRTHA called [facility] and asked to speak to clinical nursing director, no answer left message.
--- NOTE | 2023-04-29 09:57 | SWNOTE1 ---
MIRTHA spoke to Charla, she is waiting for an answer from the [employer] of the [employer] to [facility] if they can accept. The concern is that her [place] medicaid is still active until end of , therefore uncertain if [place] medicaid will kick in at beginning of May or if it will not be until beginning of June. If is is June, then [place] would lose out on payment. MIRTHA asked if it would help if we called her [place] medicaid and let them know or try to cancel. She stated it may be beneficial. MIRTHA also asked since we filled out medicaid carlos with pt and sent to [employer], would this help. She stated it may not matter due to her [place] medicaid being active. SW to speak with pt.
--- NOTE | 2023-04-29 11:29 | P.PN_ITS ---
Progress Note: Subjective Subjective Interval history: Patient unchanged this am. Continues to c/o severe pain in back and hips. Working with PT but not able to ambulate far due to pain. Started norco but no change in pain. Normal appetite and no emesis or diarrhea. No chest pain or palpitations. No SOB or cough. Exam Constitutional Vital Signs, click to edit/add: Last Vital Signs Temp 97.8 F 04/29/23 05:36 Pulse 87 04/29/23 05:36 Resp 18 04/29/23 05:36 BP 171/99 H 04/29/23 05:36 Pulse Ox 92 L 04/29/23 05:36 O2 Del Method Room Air 04/29/23 05:36 Documenting provider has reviewed patient's vital signs: yes Common normals: no apparent distress, oriented x3 and alert HENMT Common normals: normocephalic Eye Common normals: PERRL and EOMs intact bilaterally Respiratory Common normals: normal respiratory effort and clear to auscultation bilaterally Cardio Common normals: regular rate, regular rhythm, no gallops, no murmurs and no rub GI Common normals: Normal to inspection, nondistended, normoactive bowel sounds present and non-tender Extremity Common normals: no pedal edema Progress Note: Objective Labs Labs: Short CBC 04/29/23 Range/Units 04:27 WBC 14.7 H (4.0-11.0) 10^3/uL Hgb 10.6 L (12.0-16.0) g/dL Hct 35.8 L (36.0-48.0) % Plt Count 445 (150-450) 10^3/uL BMP 04/29/23 04:27 Sodium 141 Potassium 3.9 Chloride 106 Carbon Dioxide 24.5 BUN 23.0 H Creatinine 0.67 Glucose 93 Calcium 8.6 Liver Function 04/29/23 Range/Units 04:27 Total Bilirubin 0.2 (0.2-1.0) mg/dL AST 8 L (15-37) U/L ALT 14 (14-59) U/L Alkaline Phosphatase 46 (46-116) U/L Albumin 2.6 L (3.4-5.0) g/dL Progress Note: A&P Assessment and Plan (1) Degenerative lumbar spinal stenosis: (2) Bilateral primary osteoarthritis of hip: (3) Unable to ambulate: (4) Leukocytosis: (5) Suicidal ideation: (6) Bipolar 1 disorder: (7) Syphilis (acquired): Plan Continues to c/o uncontrolled pain and stop norco. Try percocet PRN and continue neurontin. Continue PT/OT for weakness. director of patient financial services attempting to find placement.
--- NOTE | 2023-04-29 11:41 | CM.NOTE ---
Rounds made with Dr. Epstein, possible discharge today. Awaiting response from [facility] for skilled therapy.
[2023-04-29] MEDS: OXYCODONE HCL/ACETAMINOPHEN 5MG/325MG 1 TAB PO ×2 (13:03→20:27)
[2023-04-29 13:07] VITALS: BP 116/74; PULSE 74; RESP 16; TEMP 36.5; O2SAT 95
--- NOTE | 2023-04-29 13:31 | SWNOTE1 ---
MIRTHA reached out to Charla at [employer]. She is going to reach out to her boss since she has not heard anything back yet.
[2023-04-29 14:39] VITALS: BP 100/80; PULSE 90; RESP 15; TEMP 37; O2SAT 94
--- NOTE | 2023-04-29 14:56 | PT.DAILY ---
Physical Therapy Daily Note PT Daily Note/Assess Start: 04/27/23 09:42 Freq: Status: Active Protocol: Document 04/29/23 14:20 ROLAN (Rec: 04/29/23 14:55 ROLAN [id number]) Physical Therapy Daily Note/Assessment Time In/Time Out Time In 14:20 Time Out 14:45 Subjective Subjective Pain has been high. Patient did become tearful 2x throughout RX, just frustration and wanting to get better, and be able to move without pain. Therapeutic Exercise Time Therapeutic Exercise Minutes (minutes) 10 Therapeutic Exercise Units 1 Therapeutic Exercise Treatment Therapeutic Exercise Treatment Supine and Seated exercises 10 reps each. Limited ROM on R LE due to pain, but still able to complete. Therapeutic Activity Time Therapeutic Activity Minutes (minutes) 15 Therapeutic Activity Units 1 Therapeutic Activity Treatment Bed Mobility Ability Independent Chair Transfer Ability Standby Assistance Therapeutic Activity Comments Bed mobility with rolling and supine to sit was independent just slow due to pain. Sit to stand at RW SBA. Static stand x 3 min without LOB, UE support, unable to achieve full upright extension. Per patient has ambulated bent over for over a year now. Gait 25' with RW SBA again with fwd. flexed posture but no LOB . Total Physical Therapy Time Total Therapy Minutes 25 Total Physical Therapy Units 2 Summary Daily Note Summary Patient works hard with PT this date and is motivated to get better. Exercises and gait distance are limited due to high LBP and pain down R LE today. Gait distance is improved from previous date. Continue to recommend SNF at [place] for improved strength, and ability with functional transfers and gait.
--- NOTE | 2023-04-29 16:24 | SWNOTE1 ---
[facility] can accept once they get a withdrawal letter from [place] medicaid and SW completes PASSR. SW and pt called the facility she was in in [place], they ran the pt's benefits and she is straight [place] medicaid as of 04/25/23. They stated she should not have to withdrawal, she should just apply for [place] medicaid. SW spoke to Charla at [facility] and she stated she was adived by corporate that pt has to withdrawal from [place] medicaid. SW and pt called [place] medicaid and was on phone for 10 minute and then transferred to another dept. This dept then gave SW another number for the [facility] that pt was in in [place] and advised to call them, which is the dept of health and human resources. SW and pt called and attempted 2x, but nobody answered the extensions we attempted, we even hit 0 to talk to stabilizing machine operator and nobody answered. SW to attempt tomorrow. SW asked pt what she would like to do and she prefers to stay in [place] close to her sister. Her sister is in [place], living on [address]. The goal is for them to got house together. SW to attempt tomrrow.
[2023-04-29 20:28] VITALS: BP 108/72; PULSE 83; RESP 16; TEMP 36.7; O2SAT 94
[2023-04-30] MEDS: OXYCODONE HCL/ACETAMINOPHEN 5MG/325MG 1 TAB PO ×2 (02:31→13:19)
[2023-04-30 05:14] LABS: Basophils Absolute Auto 0.2 10^3/uL (0.0-0.1); Basophils Percent Auto 1.2 % (0.2-2.0); Eosinophils Absolute Auto 0.9 10^3/uL (0.0-0.7); Eosinophils Percent Auto 5.7 % (0.9-7.0); Hemoglobin 10.3 g/dL (12.0-16.0); Immature Granulocytes Abs Auto 0.15 10^3/uL (0.00-0.03); Lymphocytes Absolute Auto 3.5 10^3/uL (1.2-3.8); Lymphocytes Percent Auto 22.6 % (20.5-60.0); Mean Corpuscular HGB Conc 29.4 g/dL (29.9-35.2); Mean Corpuscular Hemoglobin 23.6 pg (26.7-34.0); Mean Corpuscular Volume 80.1 fL (81.0-99.0); Monocytes Absolute Auto 1.7 10^3/uL (0.3-0.8); Monocytes Percent Auto 10.9 % (1.7-12.0); Neutrophils Absolute Auto 9.2 10^3/uL (1.4-6.5); Neutrophils Percent Auto 58.6 % (43.0-75.0); Platelet Count 417 10^3/uL (150-450); Red Blood Count 4.37 10^6/uL (4.20-5.40); Red Cell Distribution Width 17.3 % (11.0-15.0); White Blood Count 15.6 10^3/uL (4.0-11.0)
[2023-04-30] MEDS: GABAPENTIN 300 MG CAPSULE 600 MG PO ×2 (05:19→13:19)
[2023-04-30] MEDS: METHOCARBAMOL 500 MG TABLET PO ×2 (05:19→13:19)
[2023-04-30 05:21] VITALS: BP 103/81; PULSE 78; RESP 16; TEMP 36.5; O2SAT 92
[2023-04-30 05:39] LABS: Alanine Aminotransferase 12 U/L (14-59); Albumin Globulin Ratio 0.6; Albumin Level 2.5 g/dL (3.4-5.0); Alkaline Phosphatase 46 U/L (46-116); Anion Gap 13.3; Aspartate Amino Transferase 10 U/L (15-37); BUN Creatinine Ratio 40.3; Bilirubin Total 0.2 mg/dL (0.2-1.0); Calcium 8.6 mg/dL (8.5-10.1); Carbon Dioxide 24.8 mmol/L (21.0-32.0); Chloride 107 mmol/L (98-107); Estimated GFR (African America >60 (>=60); Estimated GFR (Non-African Ame >60 (>=60); Globulin 4.3 g/dL; Glucose 95 mg/dL (74-106); Potassium 4.1 mmol/L (3.5-5.1); Sodium 141 mmol/L (136-145); Total Protein 6.8 g/dL (6.4-8.2)
[2023-04-30 07:50] VITALS: BP 110/78; PULSE 87; RESP 14; TEMP 36.5; O2SAT 95
[2023-04-30] MEDS: ENOXAPARIN SODIUM 40 MG/0.4 ML SYRINGE SUBQ (08:55)
[2023-04-30] MEDS: LIDOCAINE 5% PATCH 1 PATCH TOPICAL (08:55)
[2023-04-30] MEDS: CLONAZEPAM 0.5 MG TABLET 1 MG PO (08:56)
[2023-04-30] MEDS: ARIPIPRAZOLE 5 MG TABLET 20 MG PO (08:56)
[2023-04-30] MEDS: DULOXETINE HCL 60 MG CAPSULE.DR PO (08:56)
[2023-04-30] MEDS: FAMOTIDINE 20 MG TABLET PO (08:57)
--- NOTE | 2023-04-30 10:31 | SWNOTE1 ---
Sunday called [facility] in [place] in the county pt was in. SUNDAY had to leave message for a lady by name of Ms. Brown. SUNDAY to try again soon.
--- NOTE | 2023-04-30 11:24 | CM.NOTE ---
Rounds made with Dr. Epstein, pt continues to c/o back and hip pain. Pt has prn pain medications ordered. Pt is possible discharge to [facility] today.
[2023-04-30 13:16] VITALS: BP 99/62; PULSE 106; RESP 20; TEMP 36.6; O2SAT 91
--- NOTE | 2023-04-30 15:04 | P.DS_ITS ---
DS: Providers Provider Date of admission: 04/26/23 20:38 Primary care physician: Non-Staff Physician, Consults: 04/27/23 09:00 Occupational Therapy Eval and Treat Routine Reason for consultation: Weakness Has provider been notified: No Physical Therapy Eval and Treat Routine Reason for consultation: Weakness Has provider been notified: No DS: Diagnosis Discharge Diagnosis (1) Degenerative lumbar spinal stenosis: (2) Bilateral primary osteoarthritis of hip: (3) Unable to ambulate: (4) Leukocytosis: (5) Suicidal ideation: (6) Bipolar 1 disorder: (7) Syphilis (acquired): DS: Summary Hospital Course Hospital Course: Reason for admission: See ER note and H&P for details. 42 y/o female to ER with SI. History of chronic back pain from DDD and OA hips. Patient with decreased ambulation for past few years. Recently moved to [place] and became homeless. Sent to ER and admitted for 2 weeks. Found positive syphilis and seen by ID. Treated with PCN. Discharged to SNF for rehab. Seen by account officer and told syphilis still present and started oral doxy. Not happy at SNF and sister picked her up and drove to ER at [facility]. In ER expressed SI and wanting to hurt self. Evaluated by [facility] and recommended admission but no beds available. Multiple facilities would not accept due to inability to ambulate. Patient stated not SI and just depressed. Reassessed by [facility] and felt not a threat to self and admitted. Hospital course: Started PT/OT and resumed home medication. caseworker protective services consulted to assist with insurance and placement. Continued weakness and problems with ambulation. Adjusted pain medication due to continued pain. Patient remained stable. caseworker protective services helped cancel [place] medicaid and arranged for SNF. Patient transferred to SNF in stable condition for therapy. Will need outpatient evaluation by ortho and pain management. Continue home medication as directed. Time Spent with Patient Time attestation: Total time spent providing and/or coordinating discharge services: Exam Constitutional Vital Signs, click to edit/add: Last Vital Signs Temp 97.8 F 04/30/23 13:16 Pulse 106 H 04/30/23 13:16 Resp 20 04/30/23 13:16 BP 99/62 04/30/23 13:16 Pulse Ox 91 L 04/30/23 13:16 O2 Del Method Room Air 04/30/23 13:16 Documenting provider has reviewed patient's vital signs: yes Common normals: no apparent distress, oriented x3 and alert HENMT Common normals: normocephalic Eye Common normals: PERRL and EOMs intact bilaterally Respiratory Common normals: normal respiratory effort and clear to auscultation bilaterally Cardio Common normals: regular rate, regular rhythm, no gallops, no murmurs and no rub GI Common normals: Normal to inspection, nondistended, normoactive bowel sounds present and non-tender Extremity Common normals: no pedal edema DS: Data Data Completed and Pending Labs on day of discharge: Labs from last 24 hours 04/30/23 04:58 WBC 15.6 H RBC 4.37 Hgb 10.3 L Hct 35.0 L MCV 80.1 L MCH 23.6 L MCHC 29.4 L RDW 17.3 H Plt Count 417 MPV 10.0 Neut % (Auto) 58.6 Lymph % (Auto) 22.6 [place] % (Auto) 10.9 Eos % (Auto) 5.7 Baso % (Auto) 1.2 Neut # (Auto) 9.2 H Lymph # (Auto) 3.5 [place] # (Auto) 1.7 H Eos # (Auto) 0.9 H Baso # (Auto) 0.2 H Abs Immat Gran (auto) 0.15 H Imm/Tot Granulo (auto) 1.0 H Sodium 141 Potassium 4.1 Chloride 107 Carbon Dioxide 24.8 Anion Gap 13.3 BUN 25.0 H Creatinine 0.62 Est GFR ( Amer) >60 Est GFR (Non-Af Amer) >60 BUN/Creatinine Ratio 40.3 Glucose 95 Calcium 8.6 Total Bilirubin 0.2 AST 10 L ALT 12 L Alkaline Phosphatase 46 Total Protein 6.8 Albumin 2.5 L Globulin 4.3 Albumin/Globulin Ratio 0.6 Discharge Plan Discharge Disposition: Xfer SNF Discharge Medications: New oxycodone-acetaminophen 5-325 mg Tablet 1 tab PO Q6H PRN (Reason: Pain) 5 Days Qty: 20 0RF doxycycline monohydrate 100 mg Capsule 100 mg PO BID Qty: 1 0RF gabapentin 300 mg Capsule 600 mg PO TID Qty: 1 0RF Continued aripiprazole 5 mg tablet 20 mg PO DAILY duloxetine [Cymbalta] 60 mg capsule,delayed release(DR/EC) 60 mg PO BID famotidine [Pepcid] 20 mg tablet 20 mg PO DAILY aripiprazole [Abilify] 20 mg tablet 20 mg PO DAILY lidocaine [Aspercreme (lidocaine)] 4 % adhesive patch,medicated 1 patch topical DAILY Rx Instructions: may leave on for up to 12 hrs methocarbamol 500 mg tablet 1,500 mg PO Q8H ibuprofen 800 mg tablet 800 mg PO TID acetaminophen 325 mg capsule 650 mg PO Q4H PRN (Reason: fever or pain) prazosin 5 mg capsule 5 mg PO QPM clonazepam [Klonopin] 1 mg tablet 1 mg PO Q8H 5 Days Qty: 15 0RF Discontinued acetaminophen-codeine 300-30 mg tablet 1 tab PO Q6H PRN (Reason: pain) gabapentin 300 mg capsule 300 mg PO TID tramadol 50 mg tablet 50 mg PO Q8H Forms: Portal Instructions Follow Up Appointments: - Intensive Care Specialist referral for abnormal uterine bleeding/hysterctomy. Also latent syphilis follow up. - Pain clinic referral for chronic lumbar and hip pain - Neurospine referral for severe L4-L5 right foraminal stenosis w/ compression of L4 nerve root
--- NOTE | 2023-04-30 15:07 | SWNOTE1 ---
MIRTHA and pt spoke with Ann Brown at [place] medicaid office. She was able to withdrawal pt's medicaid in [place] and was able to email confirmation to MIRTHA. MIRTHA sent withdrawal letter to Charla at [facility]. Charla received letter and she is able to go to [facility]. MIRTHA completed PASRR online. MIRTHA sent dc med rec to [facility]. MIRTHA attempted to let [facility] know time of discharge, but the DON did not answer and nursing was not aware of the name. MIRTHA sent email to Charla confirming [facility] is aware of pt and she stated she sent the information including discharge information to [facility]. MIRTHA set up trips for 3:30-4:00. MIRHTA notified nursing. MIRTHA put togehter packet and took to med/surge floor. 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
== END 2023-04-30 16:02 ==
LOC: ER 04-26 19:06 → MS 04-26 20:46
PROVIDERS: Internal Medicine; Nurse Practitioner; Registered Nurse; Admitting Provider Family Medicine; Emergency Provider Emergency Medicine; Visit Provider Family Medicine
DX: M47.26 Other spondylosis with radiculopathy, lumbar region (principal); M48.061 Spinal stenosis, lumbar region without neurogenic claudication; M16.0 Bilateral primary osteoarthritis of hip; A53.0 Latent syphilis, unspecified as early or late; D72.829 Elevated white blood cell count, unspecified; R45.851 Suicidal ideations; E66.01 Morbid (severe) obesity due to excess calories; Z68.43 Body mass index [BMI] 50.0-59.9, adult; F31.9 Bipolar disorder, unspecified; F41.9 Anxiety disorder, unspecified; F60.3 Borderline personality disorder; F20.9 Schizophrenia, unspecified; Z59.00 Homelessness unspecified; Z79.899 Other long term (current) drug therapy
CPT/HCPCS: 36415; 71046; 72131; 72192; 80048; 80053; 80179; 80307; 80320; 80329; 81001; 84484; 85025; 93005; 96372; 97110; 97161; 97165; 97530; 97535; 99285; G0378

== ENCOUNTER 2023-07-01 14:07 | Emergency (ER) | payer MEDICAID, SELFPAY ==
[2023-07-01 14:12] VITALS: BP 109/65; PULSE 89; TEMP 37.2; O2SAT 97; BMI 59.4
--- NOTE | 2023-07-01 14:57 | ED.GENADUL1 ---
HPI HPI - General Adult General Chief complaint: Psychiatric Symptoms Stated complaint: GENERAL WEAKNESS Time Seen by Provider: 07/01/23 14:15 Source: patient Source information: EMS, nursing staff Mode of arrival: ambulance Limitations: no limitations Related Data Home Medications ?Medication ?Instructions ?Recorded ?Confirmed aripiprazole 5 mg tablet 20 mg PO DAILY 04/25/23 07/01/23 duloxetine 60 mg capsule,delayed 60 mg PO BID 04/25/23 07/01/23 release (Cymbalta) famotidine 20 mg tablet (Pepcid) 20 mg PO DAILY 04/25/23 07/01/23 acetaminophen 325 mg capsule 650 mg PO Q4H PRN fever or pain 04/26/23 07/01/23 aripiprazole 20 mg tablet (Abilify) 20 mg PO DAILY 04/26/23 07/01/23 ibuprofen 800 mg tablet 800 mg PO TID 04/26/23 07/01/23 lidocaine 4 % topical patch 1 patch topical DAILY 04/26/23 07/01/23 (Aspercreme (lidocaine)) methocarbamol 500 mg tablet 1,500 mg PO Q8H 04/26/23 07/01/23 prazosin 5 mg capsule 5 mg PO QPM 04/28/23 07/01/23 Previous Rx's ?Medication ?Instructions ?Recorded clonazepam 1 mg tablet (Klonopin) 1 mg PO Q8H 5 days #15 tabs 04/29/23 doxycycline monohydrate 100 mg 100 mg PO BID #1 cap 04/29/23 capsule gabapentin 300 mg capsule 600 mg (2 x 300 mg) PO TID #1 cap 04/29/23 oxycodone-acetaminophen 5 mg-325 1 tab PO Q6H PRN Pain 5 days #20 04/29/23 mg tablet tabs Allergies Allergy/AdvReac Type Severity Reaction Status Date / Time metronidazole [From Flagyl] Allergy Hives Verified 04/25/23 23:16 Opioid HPI Opioid Management Most Recent Opioid Data: Last Pain Scale 5 04/30/23 15:40 Last Pain Intensity 8 04/27/23 09:43 Ur Phencyclidine Scrn Negative (NEGATIVE) 04/25/23 23:55 PFSH PFSH Medical History (Updated 05/04/23 @ 00:00 by ) Bilateral primary osteoarthritis of hip ?M16.0 - Bilateral primary osteoarthritis of hip (ICD-10) Degenerative lumbar spinal stenosis ?M48.061 - Spinal stenosis, lumbar region without neurogenic claudication (ICD-10) Syphilis (acquired) ?A53.9 - Syphilis, unspecified (ICD-10) Bipolar 1 disorder ?F31.9 - Bipolar disorder, unspecified (ICD-10) Anxiety disorder ?F41.9 - Anxiety disorder, unspecified (ICD-10) Abnormal uterine bleeding (AUB) ?N93.9 - Abnormal uterine and vaginal bleeding, unspecified (ICD-10) Schizoaffective disorder ?F25.9 - Schizoaffective disorder, unspecified (ICD-10) Major depressive disorder, recurrent ?F33.9 - Major depressive disorder, recurrent, unspecified (ICD-10) Chronic bilateral low back pain ?M54.50 - Low back pain, unspecified (ICD-10) ?G89.29 - Other chronic pain (ICD-10) Degenerative arthritis of hip ?M16.9 - Osteoarthritis of hip, unspecified (ICD-10) Tuberculosis ?A15.9 - Respiratory tuberculosis unspecified (ICD-10) Herniated disc Arthritis ?M19.90 - Unspecified osteoarthritis, unspecified site (ICD-10) MRSA (methicillin resistant Staphylococcus aureus) ?A49.02 - Methicillin resistant Staphylococcus aureus infection, unspecified site (ICD-10) Staph infection ?B95.8 - Unspecified staphylococcus as the cause of diseases classified elsewhere (ICD-10) Ectopic ?O00.90 - Unspecified ectopic without intrauterine (ICD-10) Surgical History Hx of tonsillectomy ?Z90.89 - Acquired absence of other organs (ICD-10) Family History Other Family history of cancer Social History Within the past year, how often did you have a drink containing alcohol: monthly or less Within the past year, how many standard drinks containing alcohol did you have on a typical day: 1 or 2 Within the past year, how often did you have six or more drinks on one occasion: never Total score: 0 Score interpretation: A score less than 3 is consistent with normal alcohol consumption. Smoking status: Current some day smoker Non-prescribed substance use: cannabis (any form) Highest level of school completed/degree received: high school graduate Little interest or pleasure in doing things: more than half the days Feeling down, depressed, or hopeless: more than half the days Feel stressed/tense/nervous/anxious/difficulty sleeping: very much Exam Constitutional Vital Signs, click to edit/add: Last Vital Signs Temp 99.0 F 07/01/23 14:12 Pulse 89 07/01/23 14:12 Resp 18 07/01/23 14:12 BP 109/65 07/01/23 14:12 Pulse Ox 97 07/01/23 14:12 O2 Del Method Room Air 07/01/23 14:12 Course Vital Signs Vital signs: Vital Signs Temperature 99.0 F 07/01/23 14:12 Pulse Rate 89 07/01/23 14:12 Respiratory Rate 18 07/01/23 14:12 Blood Pressure 109/65 07/01/23 14:12 Pulse Oximetry 97 07/01/23 14:12 Oxygen Delivery Method Room Air 07/01/23 14:12 Temperature 99.0 F 07/01/23 14:12 Pulse Rate 89 07/01/23 14:12 Respiratory Rate 18 07/01/23 14:12 Blood Pressure 109/65 07/01/23 14:12 Pulse Oximetry 97 07/01/23 14:12 Oxygen Delivery Method Room Air 07/01/23 14:12 Discharge Plan Discharge Chief Complaint: Psychiatric Symptoms Prescriptions / Home Meds: No Action aripiprazole 5 mg tablet 20 mg PO DAILY duloxetine [Cymbalta] 60 mg capsule,delayed release(DR/EC) 60 mg PO BID famotidine [Pepcid] 20 mg tablet 20 mg PO DAILY aripiprazole [Abilify] 20 mg tablet 20 mg PO DAILY lidocaine [Aspercreme (lidocaine)] 4 % adhesive patch,medicated 1 patch topical DAILY Rx Instructions: may leave on for up to 12 hrs methocarbamol 500 mg tablet 1,500 mg PO Q8H ibuprofen 800 mg tablet 800 mg PO TID acetaminophen 325 mg capsule 650 mg PO Q4H PRN (Reason: fever or pain) prazosin 5 mg capsule 5 mg PO QPM oxycodone-acetaminophen 5-325 mg Tablet 1 tab PO Q6H PRN (Reason: Pain) 5 Days Qty: 20 0RF doxycycline monohydrate 100 mg Capsule 100 mg PO BID Qty: 1 0RF gabapentin 300 mg Capsule 600 mg PO TID Qty: 1 0RF clonazepam [Klonopin] 1 mg tablet 1 mg PO Q8H 5 Days Qty: 15 0RF Print Language: Tristanian Referrals: Physician,Non-Staff, MD [Primary Care Provider] - 1 week
[2023-07-01] MEDS: MORPHINE SULFATE 4 MG/ML VIAL IM (15:13)
--- NOTE | 2023-07-01 16:24 | ED_ITS ---
HPI HPI - General Adult General Chief complaint: Psychiatric Symptoms Stated complaint: GENERAL WEAKNESS Time Seen by Provider: 07/01/23 14:15 Source: patient Source information: EMS, nursing staff Mode of arrival: ambulance Limitations: no limitations History of Present Illness HPI narrative: 43-year-old female presents to the emergency department via EMS from [facility]- care facility for mental health evaluation. Patient states that they sent her in because she was talking about suicidal ideation. However, patient states she was referring to last week when she was admitted at [facility] for this. Patient states she has thoughts of suicide, but states these are in conjunction with chronic pain issues in her back and hips for which she is at the [facility]. She denies any plan to kill herself. States that she has no desire to kill herself at present. Denies any prior history of suicide attempts. Denies homicidal ideation, hallucinations, any other concerns. Quality:?as above Severity:?mild Timing:?as above Context: Normal setting and activity? Modifying factors:?none Associated symptoms: none Related Data Home Medications ?Medication ?Instructions ?Recorded ?Confirmed aripiprazole 5 mg tablet 20 mg PO DAILY 04/25/23 07/01/23 duloxetine 60 mg capsule,delayed 60 mg PO BID 04/25/23 07/01/23 release (Cymbalta) famotidine 20 mg tablet (Pepcid) 20 mg PO DAILY 04/25/23 07/01/23 acetaminophen 325 mg capsule 650 mg PO Q4H PRN fever or pain 04/26/23 07/01/23 aripiprazole 20 mg tablet (Abilify) 20 mg PO DAILY 04/26/23 07/01/23 ibuprofen 800 mg tablet 800 mg PO TID 04/26/23 07/01/23 lidocaine 4 % topical patch 1 patch topical DAILY 04/26/23 07/01/23 (Aspercreme (lidocaine)) methocarbamol 500 mg tablet 1,500 mg PO Q8H 04/26/23 07/01/23 prazosin 5 mg capsule 5 mg PO QPM 04/28/23 07/01/23 Previous Rx's ?Medication ?Instructions ?Recorded clonazepam 1 mg tablet (Klonopin) 1 mg PO Q8H 5 days #15 tabs 04/29/23 doxycycline monohydrate 100 mg 100 mg PO BID #1 cap 04/29/23 capsule gabapentin 300 mg capsule 600 mg (2 x 300 mg) PO TID #1 cap 04/29/23 oxycodone-acetaminophen 5 mg-325 1 tab PO Q6H PRN Pain 5 days #20 04/29/23 mg tablet tabs Allergies Allergy/AdvReac Type Severity Reaction Status Date / Time metronidazole [From Flagyl] Allergy Hives Verified 04/25/23 23:16 Opioid HPI Opioid Management Most Recent Opioid Data: Last Pain Scale 5 04/30/23 15:40 Last Pain Intensity 8 04/27/23 09:43 Last MAR Pain Assessment 07/01/23 15:13 Ur Phencyclidine Scrn Negative (NEGATIVE) 04/25/23 23:55 Review of Systems ROS Narrative CONST: Denies fever, chills HENT: Denies congestion, sore throat EYES: Denies eye redness, visual disturbance RESP: Denies cough, shortness of breath CV: Denies chest pain, palpitations GI: Denies abd pain, nausea, vomiting : Denies dysuria, flank pain MS: Denies back pain, myalgias SKIN: Denies color change, rash NEURO: Denies numbness, weakness PSYCHIATRIC: Denies agitation, behavior problem, confusion, decreased concentration, dysphoric mood, hallucinations, hyperactivity, nervousness, anxiety, self-injury, sleep disturbance, suicidal ideas PFSH PFS Medical History (Updated 07/01/23 @ 15:00 by LENARD Gipson) Bilateral primary osteoarthritis of hip ?M16.0 - Bilateral primary osteoarthritis of hip (ICD-10) Degenerative lumbar spinal stenosis ?M48.061 - Spinal stenosis, lumbar region without neurogenic claudication (ICD-10) Syphilis (acquired) ?A53.9 - Syphilis, unspecified (ICD-10) Bipolar 1 disorder ?F31.9 - Bipolar disorder, unspecified (ICD-10) Anxiety disorder ?F41.9 - Anxiety disorder, unspecified (ICD-10) Abnormal uterine bleeding (AUB) ?N93.9 - Abnormal uterine and vaginal bleeding, unspecified (ICD-10) Schizoaffective disorder ?F25.9 - Schizoaffective disorder, unspecified (ICD-10) Major depressive disorder, recurrent ?F33.9 - Major depressive disorder, recurrent, unspecified (ICD-10) Chronic bilateral low back pain ?M54.50 - Low back pain, unspecified (ICD-10) ?G89.29 - Other chronic pain (ICD-10) Degenerative arthritis of hip ?M16.9 - Osteoarthritis of hip, unspecified (ICD-10) Tuberculosis ?A15.9 - Respiratory tuberculosis unspecified (ICD-10) Herniated disc Arthritis ?M19.90 - Unspecified osteoarthritis, unspecified site (ICD-10) MRSA (methicillin resistant Staphylococcus aureus) ?A49.02 - Methicillin resistant Staphylococcus aureus infection, unspecified site (ICD-10) Staph infection ?B95.8 - Unspecified staphylococcus as the cause of diseases classified elsewhere (ICD-10) Ectopic ?O00.90 - Unspecified ectopic without intrauterine (ICD- 10) Surgical History Hx of tonsillectomy ?Z90.89 - Acquired absence of other organs (ICD-10) Family History Other Family history of cancer Social History Within the past year, how often did you have a drink containing alcohol: monthly or less Within the past year, how many standard drinks containing alcohol did you have on a typical day: 1 or 2 Within the past year, how often did you have six or more drinks on one occasion: never Total score: 0 Score interpretation: A score less than 3 is consistent with normal alcohol consumption. Smoking status: Current some day smoker Non-prescribed substance use: cannabis (any form) Highest level of school completed/degree received: high school graduate Little interest or pleasure in doing things: more than half the days Feeling down, depressed, or hopeless: more than half the days Feel stressed/tense/nervous/anxious/difficulty sleeping: very much Exam Narrative Exam Narrative: Vital signs reviewed Nurses notes noted CONST: Nontoxic, well appearing, well nourished, in no distress.? No diaphoresis .?? HENT: normocephalic, atraumatic, moist mucous membrane, no abnormalities of the nose noted, hearing normal EYES: normal appearing conjunctiva, no apparent discharge bilat NECK: normal appearance CV: normal rate, regular rhythm, no murmur RESP: normal effort, speaking in complete sentences, Lung sounds clear and equal bilat.? No wheezes, rales, rhonchi GI: normal bowel sounds, soft, no distension, nontender : no CVA tenderness MS: no edema, injury SKIN: no pallor NEURO: A&Ox 3, no focal deficits PSYCH: normal mood, affect. Denies suicidal, homicidal ideation or plan. Denies hallucinations either auditory or visual. Constitutional Vital Signs, click to edit/add: Last Vital Signs Temp 99.0 F 07/01/23 14:12 Pulse 89 07/01/23 14:12 Resp 18 07/01/23 14:12 BP 109/65 07/01/23 14:12 Pulse Ox 97 07/01/23 14:12 O2 Del Method Room Air 07/01/23 14:12 Course Vital Signs Vital signs: Vital Signs Temperature 99.0 F 07/01/23 14:12 Pulse Rate 89 07/01/23 14:12 Respiratory Rate 18 07/01/23 14:12 Blood Pressure 109/65 07/01/23 14:12 Pulse Oximetry 97 07/01/23 14:12 Oxygen Delivery Method Room Air 07/01/23 14:12 Temperature 99.0 F 07/01/23 14:12 Pulse Rate 89 07/01/23 14:12 Respiratory Rate 18 07/01/23 14:12 Blood Pressure 109/65 07/01/23 14:12 Pulse Oximetry 97 07/01/23 14:12 Oxygen Delivery Method Room Air 07/01/23 14:12 Medical Decision Making MDM Narrative Medical decision making narrative: This is a pleasant 43-year-old female presents to the emergency department for mental health evaluation. Patient was admitted last week to [facility] with suicidal ideation. She was talking about the suicidal ideation today when she believes staff at the extended care facility became concerned and sent her in. Currently, she is adamantly denying any thoughts of harming herself. Denies any homicidal ideation, hallucinations, drug or alcohol use. She has never attempted suicide. States she has thoughts of not wanting to live secondary to chronic pain issues she has in her back and hips. Feels as though the current facility has been addressing her pain. On arrival, afebrile, vital signs are stable. On exam, nontoxic, well-appearing patient in no distress. Heart regular rate and rhythm. Lung sounds clear and equal bilaterally. Denies suicide, homicide ideation or plan. Moving all extremities symmetrically. [facility] spoke with the patient and states that they do not feel she is at risk for harming herself. No further workup necessary. They feel patient can be discharged back to the extended care facility. Patient was given dose of pain medicines. Disposition ? The patient was discharged. Plan: Patient will be discharged to home. Condition at time of disposition: stable ? Advised to follow up with primary provider. Advised to return for any worsening and/or development of new, concerning signs or symptoms PLEASE NOTE: Portions of the medical record may have been produced using electronic product safety professional and may contain errors with respect to translation of words which may not have been identified prior to finalization of the chart. Lab Data Labs: Lab Results 07/01/23 Range/Units 14:26 Urine Color Lt. yellow (YELLOW) Urine Clarity Clear (CLEAR) Urine pH 5.5 (5.0-9.0) Ur Specific [place] 1.025 (1.005-1.025) Urine Protein Negative (NEG/TRACE) mg/dL Urine Glucose (UA) Negative (NEGATIVE) mg/dL Urine Ketones Negative (NEGATIVE) mg/dL Urine Occult Blood Negative (NEGATIVE) Urine Nitrite Negative (NEGATIVE) Urine Bilirubin Negative (NEGATIVE) Urine Urobilinogen 0.2 (0.2-1.0) EU/dL Ur Leukocyte Esterase Moderate A (NEGATIVE) Urine RBC 0-2 (0-2) #/HPF Urine WBC 10-20 A (NONE SEEN) #/HPF Ur Squamous Epith Cells Few A (NONE/RARE) #/LPF Urine Crystals None seen (None Seen) #/HPF Urine Bacteria Trace A (NONE SEEN) #/HPF Urine Casts None seen (NONE SEEN) #/LPF Urine Mucus None seen (NONE SEEN) Discharge Plan Discharge Stand Alone Forms: Portal Instructions Chief Complaint: Psychiatric Symptoms Clinical Impression: No problem, feared complaint unfounded Chronic back pain Qualifiers: Back pain location: low back pain Back pain laterality: unspecified Sciatica presence: unspecified whether sciatica present Qualified Code(s): M54.50 - Low back pain, unspecified Patient Disposition: Home, Self-Care Time of Disposition Decision: 14:59 Condition: Good Mode of Transportation: EMS Prescriptions / Home Meds: No Action aripiprazole 5 mg tablet 20 mg PO DAILY duloxetine [Cymbalta] 60 mg capsule,delayed release(DR/EC) 60 mg PO BID famotidine [Pepcid] 20 mg tablet 20 mg PO DAILY aripiprazole [Abilify] 20 mg tablet 20 mg PO DAILY lidocaine [Aspercreme (lidocaine)] 4 % adhesive patch,medicated 1 patch topical DAILY Rx Instructions: may leave on for up to 12 hrs methocarbamol 500 mg tablet 1,500 mg PO Q8H ibuprofen 800 mg tablet 800 mg PO TID acetaminophen 325 mg capsule 650 mg PO Q4H PRN (Reason: fever or pain) prazosin 5 mg capsule 5 mg PO QPM oxycodone-acetaminophen 5-325 mg Tablet 1 tab PO Q6H PRN (Reason: Pain) 5 Days Qty: 20 0RF doxycycline monohydrate 100 mg Capsule 100 mg PO BID Qty: 1 0RF gabapentin 300 mg Capsule 600 mg PO TID Qty: 1 0RF clonazepam [Klonopin] 1 mg tablet 1 mg PO Q8H 5 Days Qty: 15 0RF Print Language: Uzbek Instructions: Chronic Pain (ED) Referrals: Physician,Non-Staff, MD [Physician] - 1 week
[2023-07-01 18:11] LABS: Bilirubin Urine NEGATIVE (NEGATIVE); Blood Urine NEGATIVE (NEGATIVE); Clarity Urine CLEAR (CLEAR); Color Urine LT. YELLOW (YELLOW); Glucose Urine UA NEGATIVE (NEGATIVE); Ketones Urine NEGATIVE (NEGATIVE); Leukocyte Esterase Urine MODERATE (NEGATIVE); Nitrite Urine NEGATIVE (NEGATIVE); Protein Urine NEGATIVE (NEG/TRACE); Specific Gravity Urine 1.025 (1.005-1.025); Urobilinogen Urine 0.2 EU/dL (0.2-1.0); pH Urine 5.5 (5.0-9.0)
[2023-07-01 18:19] LABS: Bacteria Urine TRACE #/HPF (NONE SEEN); Cast Seen? NONE SEEN #/LPF (NONE SEEN); Crystals Seen? None Seen #/HPF (None Seen); Mucus Urine NONE SEEN (NONE SEEN); RBC Urine 0-2 #/HPF (0-2); Squamous Epithelial Cell Urine FEW #/LPF (NONE/RARE)
== END 2023-07-01 18:15 | disposition home or self-care (01) ==
PROVIDERS: Emergency Provider Emergency Medicine; PCP Family Medicine
DX: Z71.1 Person with feared health complaint in whom no diagnosis is made (principal); M16.0 Bilateral primary osteoarthritis of hip; M48.061 Spinal stenosis, lumbar region without neurogenic claudication; G89.29 Other chronic pain; F31.9 Bipolar disorder, unspecified; F41.9 Anxiety disorder, unspecified; F25.9 Schizoaffective disorder, unspecified; M54.50 Low back pain, unspecified; Z86.14 Personal history of Methicillin resistant Staphylococcus aureus infection
CPT/HCPCS: 81001; 96372; 99284

== ENCOUNTER 2023-08-30 21:05 | Outpatient (REF) | payer MEDICAID, SELFPAY ==
--- OUTSIDE RECORDS SUMMARY | 2023-08-30 21:07 | XMS_ITS | CCD ---
Author Organization [facility] Care Team Providers Care Spinner Continuous Name Role Phone SHAMMO, DEMETRIA Primary Care Unavailable SHAMMO, DEMETRIA Attending Unavailable SHAMMO, DEMETRIA Admitting Unavailable SHAMMO, DEMETRIA Attending Unavailable SHAMMO, DEMETRIA Admitting Unavailable SHAMMO, DEMETRIA Primary Care Unavailable ZIEBER, DR JEAN CARLOS Whittaker Consulting Unavailable HITESH ., HIGINIO Attending Unavailable MISC, DR ROJAS Primary Care Unavailable HITESH ., HIGINIO Admitting Unavailable HITESH ., HIGINIO Consulting Unavailable SHAMMO, DEMETRIA Primary Care Unavailable LAKSHMIPATHY ., NARENDRANATH Consulting Victorina vailable LAKSHMIPATHY ., NARENDRANATH Attending Victorina vailable LAKSHMIPATHY ., NARENDRANATH Admitting Victorina vailable SHAMMO, DEMETRIA Primary Care Unavailable HALKER ., LAMINE Attending Unavailable HALKER ., LAMINE Admitting Unavailable SHAMMO, DEMETRIA Primary Care Unavailable LAKSHMIPATHY ., NARENDRANATH Consulting Victorina vailable LAKSHMIPATHY ., NARENDRANATH Attending Victorina vailable LAKSHMIPATHY ., NARFLORYATH Admitting Victorina vailable ROSITA ., DR DIAZ Admitting Unavailable ROSITA ., DR DIAZ Consulting Unavailable ROSITA ., DR DIAZ Attending Unavailable SHAMMO, DEMETRIA Primary Care Unavailable SHAMMO, DEMETRIA Attending Unavailable SHAMMO, DEMETRIA Admitting Unavailable ZIEBER, DR JEAN CARLOS Whittaker Consulting Unavailable SHAMMO, DEMETRIA Primary Care Unavailable SHAMMO, DEMETRIA Consulting Unavailable SHAMMO, DEMETRIA Primary Care Unavailable ROSITA ., DR DIAZ Admitting Unavailable ROSITA ., DR DIAZ Consulting Unavailable ROSITA ., DR DIAZ Attending Unavailable SHAMMO, DEMETRIA Primary Care Unavailable ROSITA ., DR DIAZ Admitting Unavailable ROSITA ., DR DIAZ Consulting Unavailable ROSITA ., DR DIAZ Attending Unavailable ROSITA ., DR DIAZ Admitting Unavailable ROSITA ., DR DIAZ Attending Unavailable SHAMSTEF DEMETRIA Primary Care Unavailable No Pcp, No Pcp Primary Care Provider Unavailabl e NON STAFF Primary Care Provider Unavailabl e MD Joseph Tello Attending Provider MD Joseph Tello Admit Provider ANA MARIA Schwartz Other Provider Unavailable ANA MARIA Conway Other Provider Unavailable ANA MARIA Cheney Other Provider Unavailable ANA MARIA Conley Other Provider Unavailable ANA MARIA Clemente Other Provider Unavailable ANA MARIA Quach Other Provider Unavailable MD Fercho Granados Other Provider DO Elsa Webb Other Provider MD Amador Swain Other Provider DO Vitaly Lees Other Provider MD Carrillo Escamilla Other Provider MD Ara Carlin Other Provider MD Benjy Houser Other Provider Unavailable CECY Mata Other Provider MD Linsey Pradhan Other Provider MD Antoine Perez Other Provider MD Elin Root Other Provider MD Miguel Juarez Other Provider DO Modesto Ibarra Other Provider MD Kell Jara Other Provider MD Haris Sneed Other Provider MIR Toribio Other Provider [phone] Tree RODDING ANODE WORKERGloria Flores M Other Provider Unavailable MD Almas Rayo Other Provider MD Adonis Do Other Provider MD Sedrick Ramirez Other Provider MD Amber Jones Other Provider Unavailable MD Trey Rothman Other Provider DO Allison Marin Other Provider DO Inocencio Andino Other Provider CECY Vann Other Provider DO Vick Dorsey Other Provider MD Chapin Bell Other Provider CECY Fuentes Other Provider [phone] CECY Chisholm Other Provider MD Taras Dunbar Other Provider MD Rickie Lobo Other Provider DO Julio Cesar Jluis T Other Provider [phone] DO Ramez Mock Other Provider MD James Rubén P Other Provider ANA MARIA Blackwood Other Provider Unavailable KETTY Vazquez Other Provider MD Van Moore Other Provider MD Hugo Randolph Other Provider BUTCH OLIVA Primary Care Unavailable JESSICA BRADFORD Attending Unavailable CHEL RAMSEY Attending Unavailable BUTCH OLIVA Referring Unavailable BUTCH OLIVA Primary Care Unavailable TRAV VALDOVINOS Attending Unavailable TRAV VALDOVINOS Referring Unavailable TRAV VALDOVINOS Attending Unavailable Joseph Tello Admitting Unavailab le Joseph Tello Attending Unavailab le NON STAFF Primary Care Unavailable Amy Schwartz Consulting Unavailable Lorena Conway Consulting Unavailable Angelica Cheney Consulting Unavailable Tawanna Conley Consulting Unavailable Ree Clemente Consulting Unavailable Mary Quach Consulting Unavailable Fercho Granados Consulting Unavailable Elsa Webb Consulting Unavailable Amador Swain Consulting Unavailable Vitaly Lees Consulting UnavailCarrillo Musa Consulting Unavailable Ara Carlin Consulting Unavailable Benjy Houser Consulting Unavailable Shanda Mata Consulting UnavailLinsey Khan Consulting Unavailable Antoine Perez Consulting Unavailable Elin Root Consulting Unavailable Miguel Juarez Consulting Unavailable Modesto Ibarra Consulting Unavailable Kell Jara Consulting Unavailable Haris Sneed Consulting Unavailable Lyudmila Toribio Consulting Unavailable Mark Leavitt Consulting Unavailable Almas Rayo Consulting Unavailab Adonis Camargo Consulting Unavailable Sedrick Ramirez Consulting Unavailable Amber Jones Consulting Unavailable Trey Rothman Consulting Unavailable Allison Marin Consulting Unavailable Inocencio Andino Consulting Unavailable Anita Vann Consulting Unavailable Vick Dorsey Consulting Unavailable Chapin Bell Consulting Unavailable Becky Fuentes Consulting Unavailable Autumn Chisholm Consulting Unavailable Taras Dunbar Consulting Unavailable Rickie Lobo Consulting Unavailable Jluis Harrell Consulting Unavailable Ramez Mock Consulting Unavailable Rubén Ramirez Consulting Unavailable Candice Blackwood Consulting Unavailable Wilda Vazquez Consulting Unavailable Van Moore Consulting Unavailable Hugo Randolph Consulting Unavailable Joseph Tello Admitting Unavailab Joseph Cavanaugh Attending Unavailab le NON STAFF Primary Care Unavailable Allergies Allergy Classification Reported Allergen(s) Allergy Type Date of Onset Reaction(s) Facility (1 source) metroNIDAZOLE Drug Allergy 3 [facility] Repository (7 sources) metroNIDAZOLE; Translations: [METRONIDAZOLE] Drug Allergy 8 Nausea, Hives [facility] (6 sources) Ondansetron; Translations: [ONDANSETRON HCL] Drug Allergy 1 Itching [facility] (1 source) metroNIDAZOLE Drug Allergy 4 [facility] Repository Medications Current Medications Medication Drug Class(es) Dates Sig (Normalized) Sig (Original) acetaminophen 325 mg / oxyCODONE hydrochloride 5 mg oral tablet (1 source) Opioid Agonist Start: 06-22-2023 take 1 tablet by mouth four times daily Oxycodone-Acetamin ophen Active 1 TAB PO Four times daily June 22, 2023 12:00am ARIPiprazole 20 mg oral tablet (6 sources) Atypical Antipsychotic Start: 06-22-2023 take 20 mg by mouth once daily Aripiprazole Active 20 MG PO Daily June 22, 2023 12:00am Start: 02-06-2023 take 1 tablet by guillermina in the morning ARIPiprazole (ABILIFY) 5 mg tablet Take 1 tablet (5 mg total) by mouth in the morning. 30 tablet 0 02/06/2023 Active clonazePAM 1 mg oral tablet (1 source) Benzodiazepine Start: 06-22-2023 take 1 mg by mouth three times daily Clonazepam Active 1 MG PO Three times daily June 22, 2023 12:00am DULoxetine 60 mg delayed release oral capsule (6 sources) Serotonin and Norepinephrine Reuptake Inhibitor Start: 06-22-2023 take 60 mg by mouth twice daily Duloxetine Active 60 MG PO Twice daily June 22, 2023 12:00am Start: 02-06-2023 take 1 capsule by mo [facility] in the morning DULoxetine 40 mg capsule,delayed release(DR/EC) Take 40 mg by mouth in the morning. 30 capsule 0 02/06/2023 Active ergocalciferol 1.25 mg oral capsule (1 source) Provitamin D2 Compound Start: 06-25-2023 take 1250 ug by mouth every week Ergocalciferol (Vitamin D2) Active 1250 MCG PO Q7D@0900 30 30 June 25, 2023 12:00am famotidine 20 mg oral tablet (1 source) Histamine-2 Receptor Antagonist Start: 06-22-2023 take 20 mg by mouth once daily Famotidine Active 20 MG PO Daily June 22, 2023 12:00am furosemide 20 mg oral tablet (1 source) Loop Diuretic Start: 06-22-2023 take 20 mg by mouth once daily Furosemide Active 20 MG PO Daily June 22, 2023 12:00am gabapentin 600 mg oral tablet (1 source) Anti-epileptic Agent Start: 06-22-2023 take 600 mg by mouth three times daily Gabapentin Active 600 MG PO Three times daily June 22, 2023 12:00am ibuprofen 800 mg oral tablet (6 sources) Nonsteroidal Anti-inflammatory Drug Start: 06-22-2023 take 800 mg by mouth three times daily Ibuprofen Active 800 MG PO Three times daily June 22, 2023 12:00am Start: 02-28-2023 take 1 tablet by guillermina th every eight hours as needed ibuprofen (MOTRIN) 800 mg tablet Take 1 tablet (800 mg total) by mouth every 8 (eight) hours as needed. 0 02/28/2023 Active lidocaine 0.04 mg/mg medicated patch (1 source) Antiarrhythmic, Amide Local Anesthetic Start: 06-22-2023 apply 1 dose topically once daily Lidocaine Active 1 PATCH TOPICAL Daily June 22, 2023 12:00am melatonin 3 mg oral tablet (5 sources) Start: 02-05-2023 take 2 tablets by mouth once daily as needed for sleep melatonin (CIRCADIN) tablet Take 2 tablets (6 mg total) by mouth nightly as needed for sleep. 40 tablet 0 02/05/2023 Active methocarbamol 500 mg oral tablet (1 source) Muscle Relaxant Start: 06-22-2023 take 1500 mg by mouth three times daily Methocarbamol Active 1500 MG PO Three times daily June 22, 2023 12:00am prazosin 5 mg oral capsule (1 source) alpha-Adrenergic Aurelia Start: 06-22-2023 take 5 mg by mouth at bedtime Prazosin Active 5 MG PO Bedtime June 22, 2023 12:00am traZODone hydrochloride 50 mg oral tablet (1 source) Serotonin Reuptake Inhibitor Start: 06-25-2023 take 50 mg by mouth once daily at bedtime Trazodone Active 50 MG PO Daily at bedtime 15 15 June 25, 2023 12:00am Problems Active Problems Problem Classification Problem Date Documented Date Episodic/Chronic Anxiety disorders (10 sources) Anxiety; Translations: [Anxiety disorder, unspecified] Onset: 04-30-2023 04-30-2023 Chronic E Codes: Fall (1 source) Unspecified fall, initial encounter; Translations: [UNSPECIFIED FALL INITIAL ENCOUNTER] Onset: 05-25-2022 Episodic Immunizations and screening for infectious disease (8 sources) Encounter for screening for human papillomavirus (HPV); Translations: [Contact with and (suspected) exposure to infections with a predominantly sexual mode of transmission] Onset: 05-26-2022 04-30-2023 Episodic Menstrual disorders (5 sources) Irregular menstruation, unspecified; Translations: [IRREGULAR MENSTRUATION UNSPECIFIED] Onset: 05-28-2022 Chronic Mood disorders (11 sources) Bipolar affective disorder, current episode mixed; Translations: [Bipolar disorder, current episode mixed, unspecified] Onset: 04-30-2023 04-30-2023 Chronic Osteoarthritis (17 sources) Unilateral primary osteoarthritis, left hip; Translations: [Bilateral primary osteoarthritis of hip] Onset: 05-27-2022 Chronic Other connective tissue disease (1 source) Other muscle spasm; Translations: [OTHER MUSCLE SPASM] Onset: 06-24-2022 Episodic Other connective tissue disease (6 sources) Muscle weakness; Translations: [Muscle weakness (generalized)] Onset: 05-14-2023 05-14-2023 Episodic Other female genital disorders (1 source) Other specified noninflammatory disorders of vagina; Translations: [OTH SPEC NONINFLAMMATORY D/O VAGINA] Onset: 05-26-2022 Episodic Other inflammatory condition of skin (1 source) Intertrigo; Translations: [Erythema intertrigo] 06-03-2023 Episodic Other nervous system disorders (3 sources) Other chronic pain; Translations: [Other chronic pain] Onset: 06-24-2022 06-25-2023 Chronic Other nervous system disorders (1 source) Chronic pain; Translations: [Other chronic pain] 06-23-2023 Chronic Other nervous system disorders (1 source) Tremor, unspecified; Translations: [TREMOR UNSPECIFIED] Onset: 05-25-2022 Episodic Other nervous system disorders (6 sources) Finding related to ability to move; Translations: [Other abnormalities of gait and mobility] Onset: 05-14-2023 05-14-2023 Episodic Other non-traumatic joint disorders (4 sources) Pain in left hip; Translations: [PAIN IN LEFT HIP] Onset: 05-21-2022 Episodic Other nutritional; endocrine; and metabolic disorders (1 source) Obesity, unspecified; Translations: [OBESITY UNSPECIFIED] Onset: 05-25-2022 Chronic Other nutritional; endocrine; and metabolic disorders (1 source) Body mass index (BMI) 45.0-49.9, adult; Translations: [BODY MASS INDEX BMI 45.0-49.9 ADULT] Onset: 05-25-2022 Chronic Other nutritional; endocrine; and metabolic disorders (2 sources) Severe obesity; Translations: [Morbid (severe) obesity due to excess calories] 04-30-2023 Chronic Other nutritional; endocrine; and metabolic disorders (4 sources) Obesity; Translations: [Obesity, unspecified] Onset: 07-07-2010 04-30-2023 Chronic Other nutritional; endocrine; and metabolic disorders (2 sources) Morbid obesity; Translations: [Morbid (severe) obesity due to excess calories] Onset: 07-07-2010 06-03-2023 Chronic Other screening for suspected conditions (not mental disorders or infectious disease) (6 sources) Encounter for screening for cardiovascular disorders; Translations: [Encounter for screening mammogram for malignant neoplasm of breast] Onset: 05-25-2022 Episodic Residual codes; unclassified (1 source) Family history of malignant neoplasm of breast; Translations: [FAMILY HX MALIG NEOPLASM OF BREAST] Onset: 05-29-2022 Episodic Residual codes; unclassified (1 source) For resuscitation; Translations: [Other specified health status] 05-24-2023 Episodic Residual codes; unclassified (1 source) Edema of foot; Translations: [Localized edema] 06-03-2023 Episodic Schizophrenia and other psychotic disorders (10 sources) Schizophrenic disorders ; Translations: [Schizophrenia, unspecified] Onset: 04-30-2023 04-30-2023 Chronic Sexually transmitted infections (not HIV or hepatitis) (6 sources) Acquired syphilis ; Translations: [Syphilis, unspecified] Onset: 04-30-2023 04-30-2023 Episodic Spondylosis; intervertebral disc disorders; other back problems (11 sources) Spinal stenosis of lumbar region; Translations: [Spinal stenosis, lumbar region without neurogenic claudication] Onset: 04-30-2023 04-30-2023 Episodic Unclassified (1 source) EMS Onset: 06-22-2023 Past or Other Problems Problem Classification Problem Date Documented Da te Episodic/Chronic Ectopic (5 sources) Ectopic ; Translations: [Unspecified ectopic without intrauterine ] Onset: 05-11-2012 04-30-2023 Episodic Pneumonia (except that caused by tuberculosis or sexually transmitted disease) (5 sources) Pneumonia; Translations: [Pneumonia, unspecified organism] Onset: 01-24-2023 01-24-2023 Episodic Skin and subcutaneous tissue infections (5 sources) Cellulitis and abscess of trunk; Translations: [Cellulitis of trunk, unspecified] Onset: 07-07-2010 04-30-2023 Episodic Results Test Name Value Interpretation Reference Range Facility Cholesterol [Mass/volume] in Serum or PlasmaOrdered By: Joseph Tello on 06-23-2023 Cholesterol [Mass/Vol] 172 mg/dL Normal 140-200 [facility] Comment on above: Chol less than 200 m g/dl low riskChol 201-239 mg/dl borderline riskChol 240 mg/dl and greater high risk Order Comment: FASTI NG Y Result Comment: Chol less than 200 mg/dl low risk Chol 201-239 mg/dl borderline risk Chol 240 mg/dl and greater high risk Performed By: #### T SH3 wRFLX, LIPID, [id number] #### [facility] [place] [address] Cholesterol in LDL Calc [Mas s/Vol]Ordered By: Joseph Tello on 06-23-2023 Cholesterol in LDL [Mass/Vol] 100 mg/dL 0-100 [facility] Comment on above: LDL ATP III CLASSIFI CATIONLDL less than 100 mg/dL OptimalLDL 100-129 mg/dL Near or above optimalLDL 130-159 mg/dL Borderline highLDL 160-189 mg/dL HighLDL greater than 189 mg/dL Very high Cholesterol in VLDL Calc [Ma ss/Vol]Ordered By: Joseph Tello on 06-23-2023 Cholesterol in VLDL [Mass/Vol] 44 mg/dL [facility] ECG 12 lead ECGon 06-23-2023 ECG 12 lead ECG [facility] [address] [place] [address] Electrocardiograph Report Signed Patient: Jennifer Mendes MR#: [id number] : 1980 Acct:[id number] Age/Sex: 42 / F ADM Date: 06/22/23 Loc: Room: 6U2786-4 Type: ADM IN Attending Dr: Joseph Tello MD Ordering Provider: Joseph Tello MD Date of Service: 06/23/23 ECG/ECG 12 lead ECG: antipsychotic therapy Copies to: Test Reason : Blood Pressure : / mmHG Vent. Rate : 092 BPM Atrial Rate : 092 BPM P-R Int : 150 ms QRS Dur : 080 ms QT Int : 350 ms P-R-T Axes : 041 039 038 degrees QTc Int : 432 ms Normal sinus rhythm with sinus arrhythmia Normal ECG No previous ECGs available Confirmed by Sekou Maciel ([id number]) on 06/23/2023 11:23:15 AM Referred By: Electronically Signed By:Sekou Maciel Transcribed By: MUS Signed By Sekou Maciel MD 06/23/23 1123 Normal [facility] Lipid Panelon 06-23-2023 LDL Cholesterol,Calculated 100 mg/dL Normal 0-100 [facility] Comment on above: Order Comment: ANGELIQUE Ornelas Result Comment: LDL ATP III CLASSIFICATION LDL less than 100 mg/dL Optimal LDL 100-129 mg/dL Near or above optimal LDL 130-159 mg/dL Borderline high LDL 160-189 mg/dL High LDL greater than 189 mg/dL Very high Performed By: #### T SH3 wRFLX, LIPID, [id number] #### [facility] [place] [address] Triglyceride w/Reflex 220 mg/dL High 0-149 [facility] Comment on above: Order Comment: ANGELIQUE Ornelas Result Comment: TRIG ATP III CLASSIFICATION TRIG less than 150 mg/dL Normal TRIG 150-199 mg/dL Borderline high TRIG 200-500 mg/dL High TRIG greater than 500 mg/dL Very high Standard traceable to the Center for Disease Conrtrol and Prevention (CDC) test method. Performed By: #### T SH3 wRFLX, LIPID, [id number] #### [facility] [address] VLDL CHOLESTEROL 44 mg/dL Normal [facility] Comment on above: Order Comment: ANGELIQUE Ornelas Performed By: #### T SH3 wRFLX, LIPID, [id number] #### [facility] [place] [address] Serum or plasma high density lipoprotein (HDL) cholesterol measurementOrdered By: Joseph Tello on 06-23-2023 Cholesterol in HDL [Mass/Vol] 28 mg/dL Normal 23-92 [facility] Comment on above: HDL CHOL ATP-III CLA SSIFICATION Cardiovascular RiskHDL > or equal to 60 mg/dL LOWHDL < 40 mg/dL HIGH Order Comment: ANGELIQUE Ornelas Result Comment: HDL CHOL ATP-III CLASSIFICATION Cardiovascular Risk HDL > or equal to 60 mg/dL LOW HDL < 40 mg/dL HIGH Performed By: #### T SH3 wRFLX, LIPID, [id number] #### [facility] [address] Serum or plasma total choles terol/high density lipoprotein (HDL) cholesterol mass ratOrdered By: Joseph Tello on 06-23-2023 Cholesterol.total/Cholest mitch in HDL [Mass ratio] 6.1 {ratio} Normal <5.0 [facility] Comment on above: Order Comment: ANGELIQUE ROBINS Ceci Performed By: #### T SH3 wRFLX, LIPID, [id number] #### [facility] [address] Thyroid Stim Hormone w/Rflxo n 06-23-2023 Thyroid Stim Hormone w/Rflx 2.27 u[iU]/mL Normal 0.45-5.33 [facility] Comment on above: Order Comment: ANGELIQUE ROBINS Y Performed By: #### T SH3 wRFLX, LIPID, [id number] #### [facility] [address] Thyrotropin [Units/volume] i n Serum or PlasmaOrdered By: Joseph Tello on 06-23-2023 TSH Qn 2.27 m[IU]/L 0.45-5.33 [facility] Triglyceride [Mass/volume] i n Serum or PlasmaOrdered By: Joseph Tello on 06-23-2023 Triglyceride [Mass/Vol] 220 mg/dL 0-149 [facility] Comment on above: TRIG ATP III CLASSIF ICATIONTRIG less than 150 mg/dL NormalTRIG 150-199 mg/dL Borderline highTRIG 200-500 mg/dL High TRIG greater than 500 mg/dL Very highStandard traceable to the Center for Disease Conrtrol and Prevention (CDC) test method. Vitamin D 25 Hydroxy Totalon 06-23-2023 Vitamin D 25 Hydroxy Total 13.4 ng/mL Low 30-100 [facility] Comment on above: Order Comment: ANGELIQUE Ornelas Result Comment: DELVIS MIN D STATUS 25(OH)VITAMIN D RANGE (ng/mL) Deficient <20 Insufficient 20 to <30 Sufficient 30 to 100 Reference: Ricky Phipps, Shan KEARNEY, et al. Evaluation,treatment, and prevention of vitamin D deficiency; an Endocrine Society clinical practice guideline. JCEM. 2010; 96(7):1911-. PERFORMED BY: [place] [address] PATHOLOGIST [employer]ANDLE WRAPPING MACHINE OPERATOR JANNETTE ROTHMAN M.D. Performed By: #### T SH3 wRFLX, LIPID, [id number] #### [address] Vitamin D+Metabolites [Mass/ volume] in Serum or PlasmaOrdered By: Joseph Tello on 06-23-2023 Vitamin D+Metabolites [Mass/Vol] 13.4 ng/mL 30-100 [facility] Comment on above: VITAMIN D STATUS 25( OH)VITAMIN D RANGE (ng/mL) Deficient <20 Insufficient 20 to <30Sufficient 30 to 100Reference: Ricky Phipps, Shan KEARNEY, et al. Evaluation,treatment, and prevention of vitamin D deficiency; an Endocrine Society clinical practice guideline. JCEM. 2010; 96(7):1911-. ACETAMINOPHENon 06-22-2023 Acetaminophen [Mass/Vol] 5.1 ug/mL Low 10.0-30.0 [facility] Comment on above: Result Comment: Refe rence ranges are for therapeutic limits. Performed By: #### C MP, 4024-6, 5643-2, 3298-7, CBCA #### [facility] ([id number]) [address] [place] [address], [place] [address] CBC AND AUTO DIFFon 06-22-19 24 ABSOLUTE BASOPHIL 0.2 X10E9/L Normal 0.0-0.2 [facility] Comment on above: Performed By: #### C CHANTELL, 4024-6, 5643-2, 3297-09, CBCA #### [facility] ([id number]) [address] [place] [address] ABSOLUTE NEUTROPHIL 8.5 X10E9/L High 1.5-6.6 [facility] Comment on above: Performed By: #### C CHANTELL, [facility]4-6, 5643-2, 3297-09, CBCA #### [facility] ([id number]) [address] [place] [address] 45610 Basophils/100 WBC (Bld) 1.5 % Normal [facility] Comment on above: Performed By: #### C CHANTELL, [facility]4-6, 5643-2, 3297-09, CBCA #### [facility] ([id number]) [address] [place] [address] 08515 Eosinophils (Bld) [#/Vol] 0.9 10*3/uL High 0.0-0.4 [facility] Comment on above: Performed By: #### C CHANTELL, [facility]4-6, 5643-2, 3297-09, CBCA #### [facility] ([id number]) [address] [place] [address] 95182 Eosinophils/100 WBC (Bld) 6.5 % Normal [facility] Comment on above: Performed By: #### C CHANTELL, 4024-6, 5643-2, 3297-09, CBCA #### [facility] ([id number]) [address] [place] [address] Erythrocyte distribution width (RBC) [Ratio] 18.1 % High 11.5-15.0 [facility] Comment on above: Performed By: #### C CHANTELL, 4024-6, 5643-2, 3297-09, CBCA #### [facility] ([id number]) [address] [place] [address] Hematocrit (Bld) [Volume fraction] 35.5 % Normal 35-47 [facility] Comment on above: Performed By: #### C CHANTELL, 4024-6, 5643-2, 7, CBCA #### [facility] ([id number]) [address] [place] [address]2567 Hemoglobin (Bld) [Mass/Vol] 11.2 g/dL Low 11.7-15.5 [facility] Comment on above: Performed By: #### C CHANTELL, [facility]4-6, 5643-2, 3297-09, CBCA #### [facility] ([id number]) [address] [place] [address] Lymphocytes (Bld) [#/Vol] 3.1 10*3/uL Normal 1.0-3.5 [facility] Comment on above: Performed By: #### C CHANTELL, [facility]-6, 5643-2, 3297-09, CBCA #### [facility] ([id number]) [address] [place] [address] 76388 Lymphocytes/100 WBC (Bld) 22.2 % Normal [facility] Comment on above: Performed By: #### C CHANTELL, [facility]4-6, 5643-2, 32910-12, CBCA #### [facility] ([id number]) [address] [place] [address] 41508 MCH (RBC) [Entitic mass] 23.1 pg Low 27-34 [facility] Comment on above: Performed By: #### C CHANTELL, 4024-6, 5643-2, 32910-12, CBCA #### [facility] ([id number]) [address] [place] [address] 51896 MCHC (RBC) [Mass/Vol] 31.4 g/dL Low 32-36 [facility] Comment on above: Performed By: #### C CHANTELL, 4024-6, 5643-2, 329-7, CBCA #### [facility] ([id number]) [address] [place] [address] 43567 MCV (RBC) [Entitic vol] 74 fL Low 80-100 P [facility] Comment on above: Performed By: #### C CHANTELL, [facility]4-6, 5643-2, 3297-09, CBCA #### [facility] ([id number]) [address] [place] [address] 38663 Monocytes (Bld) [#/Vol] 1.1 10*3/uL High 0-0.9 [facility] Comment on above: Performed By: #### C CHANTELL, 4024-6, 5643-2, 3297-09, CBCA #### [facility] ([id number]) [address] [place] [address] 38284 Monocytes/100 WBC (Bld) 8.0 % Normal [facility] Comment on above: Performed By: #### C CHANTELL, [facility]4-6, 5643-2, 3297-09, CBCA #### [facility] ([id number]) [address] [place] [address] 63876 Neutrophils/100 WBC (Bld) 61.8 % Normal [facility] Comment on above: Performed By: #### C CHANTELL, 4024-6, 5643-2, 3297-09, CBCA #### [facility] ([id number]) [address] [place] [address] 05366 Platelet mean volume (Bld) [Entitic vol] 7.9 fL Normal 7-12 [facility] Comment on above: Performed By: #### C CHANTELL, 4024-6, 5643-2, 32910-12, CBCA #### [facility] ([id number]) [address] [place] [address] 02260 Platelets (Bld) [#/Vol] 530 10*3/uL High 150-450 [facility] Comment on above: Performed By: #### C CHANTELL, 4024-6, 5643-2, 329-7, CBCA #### [facility] ([id number]) [address] [place] [address] 68569 RBC COUNT 4.82 X10E12/L Normal 3.80-5.20 [facility] Comment on above: Performed By: #### C CHANTELL, 4024-6, 5643-2, 329-7, CBCA #### [facility] ([id number]) [address] [place] [address] 26225 WBC (Bld) [#/Vol] 13.8 10*3/uL High 4.0-11.0 [facility] Comment on above: Performed By: #### C CHANTELL, 4024-6, 5643-2, 32910-12, CBCA #### [facility] ([id number]) [address] [place] [address] 16876 COMPREHENSIVE METABOLIC PANE Jace 06-22-2023 Albumin [Mass/Vol] 3.6 g/dL Normal 3.2-5.3 [facility] Comment on above: Performed By: #### C CHANTELL, 4024-6, 5643-2, 32910-12, CBCA #### [facility] ([id number]) [address] [place] [address] 42493 ALP [Catalytic activity/Vol] 51 U/L Normal 39-130 [facility] Comment on above: Performed By: #### C CHANTELL, 4024-6, 5643-2, 329-7, CBCA #### [facility] ([id number]) [address] [place] [address] 40240 ALT [Catalytic activity/Vol] 18 U/L Normal 0-31 [facility] Comment on above: Performed By: #### C CHANTELL, 4024-6, 5643-2, 3297-09, CBCA #### [facility] ([id number]) [address] [place] [address] 90740 Anion gap [Moles/Vol] 6 mmol/L Normal 5-15 [facility] Comment on above: Performed By: #### C CHANTELL, 4024-6, 5643-2, 3297-09, CBCA #### [facility] ([id number]) [address] [place] [address] 97050 AST [Catalytic activity/Vol] 14 U/L Normal 0-41 [facility] Comment on above: Performed By: #### C CHANTELL, 4024-6, 5643-2, 3297-09, CBCA #### [facility] ([id number]) [address] [place] [address] 90478 Bilirubin [Mass/Vol] 0.6 mg/dL Normal 0.3-1.2 [facility] Comment on above: Performed By: #### C CHANTELL, 4024-6, 43-2, 3297-09, CBCA #### [facility] ([id number]) [address] [place] [address] 89104 Calcium [Mass/Vol] 9.0 mg/dL Normal 8.5-10.5 [facility] Comment on above: Performed By: #### C CHANTELL, 4024-6, 56-2, 3297-09, CBCA #### [facility] ([id number]) [address] [place] [address] 10264 Chloride [Moles/Vol] 104 mmol/L Normal 98-109 [facility] Comment on above: Performed By: #### C CHANTELL, 4024-6, 5643-2, 3297-09, CBCA #### [facility] ([id number]) [address] [place] [address] 36581 CO2 [Moles/Vol] 26 mmol/L Normal 22-32 [facility] Comment on above: Performed By: #### C CHANTELL, 4024-6, 5643-2, 3297-09, CBCA #### [facility] ([id number]) [address] [place] [address] 13302 Creatinine [Mass/Vol] 0.84 mg/dL Normal 0.40-1.00 [facility] Comment on above: Result Comment: METH OD TRACEABLE TO IDMS STANDARD Performed By: #### C CHANTELL, 4024-6, 5643-2, 3297-09, CBCA #### [facility] ([id number]) [address] [place] [address] 78712 GFR/1.73 sq M.predicted among non-blacks MDRD (S/P/Bld) [Vol rate/Area] 88 mL/min/{1.73_m2} Normal >59 [facility] Comment on above: Result Comment: Reported eGFR is based on the CKD-EPI 2020 equation that does not use a race coefficient. Performed By: #### C CHANTELL, 4024-6, 5643-2, 3297-09, CBCA #### [facility] ([id number]) [address] [place] [address] 61448 Glucose [Mass/Vol] 96 mg/dL Normal 65-99 [facility] Comment on above: Performed By: #### C CHANTELL, 4024-6, 5643-2, 3297-09, CBCA #### [facility] ([id number]) [address] [place] [address] 90474 Potassium [Moles/Vol] 3.9 mmol/L Normal 3.5-5.0 [facility] Comment on above: Performed By: #### C CHANTELL, 4024-6, 5643-2, 329-7, CBCA #### [facility] ([id number]) [address] [place] [address] 42149 Protein [Mass/Vol] 8.0 g/dL Normal 6.0-8.0 [facility] Comment on above: Performed By: #### C CHANTELL, 4024-6, 5643-2, 3298-7, CBCA #### [facility] ([id number]) [address] [place] [address] 25831 Sodium [Moles/Vol] 136 mmol/L Normal 134-146 [facility] Comment on above: Performed By: #### C CHANTELL, 4024-6, 5643-2, 3298-7, CBCA #### [facility] ([id number]) [address] [place] [address] 05758 Urea nitrogen [Mass/Vol] 21 mg/dL Normal 5-23 [facility] Comment on above: Performed By: #### C CHANTELL, 4024-6, 5643-2, 3298-7, CBCA #### [facility] ([id number]) [address] [place] [address] 70148 DRUG SCREEN, URINEon 024 AMPHETAMINE/METHAMP Negative Normal NEG [facility] Comment on above: Result Comment: AMPH /METH screening cut off = 1000 ng/mL Performed By: #### D CRUZ #### [facility] ([id number]) [address] [place] [address] 40967 BARBITURATES Negative Normal NEG [facility] Comment on above: Result Comment: Ella iturates screening cut off value = 200 ng/mL Performed By: #### D CRUZ #### [facility] ([id number]) [address] [place] [address] 72085 BENZODIAZEPINES Negative Normal NEG [facility] Comment on above: Result Comment: Feng odiazepines screening cut off value = 200 ng/mL Performed By: #### D CRUZ #### [facility] ([id number]) [address] [place] [address] 84031 CANNABINOIDS Positive Abnormal NEG [facility] Comment on above: Result Comment: Conf irmation available upon request. Cannabinoids/THC screening cut off value = 50 ng/mL Performed By: #### D CRUZ #### [facility] ([id number]) [address] [place] [address] 99260 COCAINE METABOLITE Negative Normal NEG [facility] Comment on above: Result Comment: Coca ine screening cut off value = 300 ng/mL Performed By: #### D CRUZ #### [facility] ([id number]) [address] [place] [address] 59981 ECSTASY Negative Normal NEG [facility] Comment on above: Result Comment: Ecst asy screening cut off value = 500 ng/mL This report is intended for use in clinical monitoring or management of patients. Performed By: #### D CRUZ #### [facility] ([id number]) [address] [place] [address] 97073 METHADONE Negative Normal [facility] Comment on above: Result Comment: Meth adone screening cut off value = 300 ng/mL. Performed By: #### D CRUZ #### [facility] ([id number]) [address] [place] [address] 10180 OPIATES Negative Normal [facility] Comment on above: Result Comment: Opia alesha screening cut off value = 300 ng/mL NOTE: This test is used for the detection of codeine, hydrocodone (>1000 ng/mL), morphine and hydromorphone (>900 ng/mL) in urine. Performed By: #### D CRUZ #### [facility] ([id number]) [address] [place] [address] 61979 OXYCODONE Positive Abnormal NEG [facility] Comment on above: Result Comment: Conf irmation available upon request. Oxycodone screening cut off value = 300 ng/mL NOTE: This test is used for the detection of oxycodone and oxymorphone in urine. Performed By: #### D CRUZ #### [facility] ([id number]) [address] [place] [address] 47331 PHENCYCLIDINE Negative Normal NEG [facility] Comment on above: Result Comment: Phen cyclidine screening cut off value = 25 ng/mL Performed By: #### D CRUZ #### [facility] ([id number]) [address] [place] [address] 67769 ETHANOLon 06-22-2023 Ethanol [Mass/Vol] mg/dL Normal 0.00-0.08 [facility] Comment on above: Result Comment: This report is intended for use in clinical monitoring or management of patients. Performed By: #### C CHANTELL, 4024-6, 5643-2, 3298-7, CBCA #### [facility] ([id number]) [address] [place] [address] 38229 HCG ( test) Ql (U)o n 06-22-2023 Beta HCG ( test) Ql (U) Negative Normal NEG [facility] Comment on above: Performed By: #### 2 106-3 #### [facility] ([id number]) [address] [place] [address] 59573 Salicylates [Mass/Vol]on SALICYLATE <4.0 Normal 2.0-25.0 [facility] Comment on above: Result Comment: Refe rence ranges are for therapeutic limits. Performed By: #### C CHANTELL, 4024-6, 5643-2, 3298-7, CBCA #### [facility] ([id number]) [address] [place] [address] 13638 URN MACROSCOPIC NURon 2023 BILIRUBIN [place] Negative Normal NEG [facility] Comment on above: Performed By: #### N UM #### [facility] ([id number]) [address] [place] [address] 79458 BLOOD/HGB [place] Trace Abnormal NEG [facility] Comment on above: Performed By: #### N UM #### [facility] ([id number]) [address] [place] [address] [place] [address] GLUCOSE [place] Negative Normal NEG [facility] Comment on above: Performed By: #### N UM #### [facility] ([id number]) [address] [place] [address] [place] [address] KETONES [place] Negative Normal NE[facility] Comment on above: Performed By: #### N UM #### [facility] ([id number]) [address] [place] [address] 01940 LEUKOCYTE ESTERASE [place] MODERATE Abnormal NEG [facility] Comment on above: Performed By: #### N UM #### [facility] ([id number]) [address] [place] [address] 65821 NITRITE [place] Negative Normal NEG [facility] Comment on above: Performed By: #### N UM #### [facility] ([id number]) [address] [place] [address] 82993 PH [place] 5.0 Normal 5.0-8.5 [facility] Comment on above: Performed By: #### N UM #### [facility] ([id number]) [address] [place] [address] 09642 PROTEIN [place] Negative Normal NEG [facility] Comment on above: Performed By: #### N UM #### [facility] ([id number]) [address] [place] [address] [place] [address] SPECIFIC GRAVITY [place] 1.015 Normal 1.003-1.035 [facility] Comment on above: Performed By: #### N UM #### [facility] ([id number]) [address] [place] [address] [place] [address] UROBILINOGEN [place] 0.2 eu/dL Normal <1.1 [facility] Comment on above: Performed By: #### N UM #### [facility] ([id number]) [address] [place] [address], [place] [address] PAP ACOG PANEL 2: 30 to 64on 06-03-[address] [facility] Comment on above: Result Comment: Perf ormed at: WB Performed By: #### 4 [id number] #### [facility] [address] [address] [address] Dustin Hoover Age Gdln ACOG Testing 30-[address] [facility] Comment on above: Performed By: #### 4 [id number] #### [facility] [address] [address] [address] Dustin Hoover DIAGNOSIS: Comment Abnormal [facility] Comment on above: Result Comment: EPIT HELIAL CELL ABNORMALITY. ATYPICAL SQUAMOUS CELLS OF UNDETERMINED SIGNIFICANCE (ASC-US). TRICHOMONAS VAGINALIS IS PRESENT. Performed at: WB Performed By: #### 4 [id number] #### [facility] [address] [address] [address] Dustin Hoover Electronically signed by: Comment Normal [facility] Comment on above: Result Comment: Andreia López MD, Pathologist Performed at: WB Performed By: #### 4 [id number] #### [facility] [address] [address] [address] Dustin Hoover HPV Aptima Negative Normal Negative [facility] Comment on above: Result Comment: This nucleic acid amplification test detects fourteen high-risk HPV types (16,18,31,33,35,39,45,51,52,56,58,59,66,68) without differentiation. Performed at: =G Performed By: #### 4 [id number] #### [facility] [address] [address] [address] Dustin Hoover HPV Genotype Reflex Comment Normal [facility] Comment on above: Result Comment: Crit eria not met, HPV Genotype not performed. Performed at: WB Performed By: #### 4 [id number] #### [facility] [address] [address] [address] Dustin Hoover Methodology: Comment Normal [facility] Comment on above: Result Comment: This liquid based ThinPrep(R) pap test was screened with the use of an image guided system. Performed at: WB Performed By: #### 4 [id number] #### [facility] [address] [place] [address] Dr. Dustin Hoover Note: Comment Normal [facility] Comment on above: Result Comment: The Pap smear is a screening test designed to aid in the detection of premalignant and malignant conditions of the uterine cervix. It is not a diagnostic procedure and should not be used as the sole means of detecting cervical cancer. Both false-positive and false-negative reports do occur. . Performed at: WB Performed By: #### 4 [id number] #### [facility] [address] [place] [address] Dr. Dustin Hoover Pathologist Provided ICD10 Comment Normal [facility] Comment on above: Result Comment: R87. 610, R87.5 Performed at: WB Performed By: #### 4 [id number] #### [facility] [address] [place] [address] Dr. Dustin Hoover Performed by: Comment Normal [facility] Comment on above: Result Comment: Bernadette Tucker, [employer] (ASCP) Performed at: WB Performed By: #### 4 [id number] #### [facility] [address] [place] [address] Dr. Dustin Hoover Recommendation: Comment Abnormal [facility] Comment on above: Result Comment: Sugg est follow up as clinically appropriate. Performed at: WB Performed By: #### 4 [id number] #### [facility] [address] [place] [address] Dr. Dustin Hoover Specimen adequacy: Comment [facility] Comment on above: Result Comment: Sati sfactory for evaluation. Endocervical and/or squamous metaplastic cells (endocervical component) are present. Performed at: WB Performed By: #### 4 [id number] #### [facility] [address] [place] [address] Dr. Dustin Hoover LIPID PROFILEon 05-28-2022 CHOL-HDL RATIO NORM SEE BELOW [facility] Comment on above: Result Comment: 3.3 - 4.4 LOW RISK 4.4 - 7.1 AVERAGE RISK 7.1 - 11.0 MODERATE RISK >11.0 HIGH RISK Performed By: #### P TT, PT #### [facility] [address] [address] [address] Dustin Hoover Cholesterol [Mass/Vol] 180 mg/dL Normal <=200 [facility] Comment on above: Performed By: #### P TT, PT #### [facility] [address] [address] [address] Dustin Hoover Cholesterol in HDL [Mass/Vol] 32 mg/dL Critically low 40-60 [facility] Comment on above: Performed By: #### P TT, PT #### [facility] [address] [place] [address] Dr. Dustin Hoover Cholesterol in LDL [Mass/Vol] 108.6 mg/dL Normal [facility] Comment on above: Performed By: #### P TT, PT #### [facility] [address] [address] [address] Dustin Hoover Cholesterol.total/Cholest mitch in HDL [Mass ratio] 5.6 {ratio} Normal [facility] Comment on above: Performed By: #### P TT, PT #### [facility] [address] [place] [address] Dr. Dustin Hoover HDL NORMAL > or = 60 mg/dl - LO W CARDIOVASCULAR RISK <40 mg/dl - HIGH CARDIOVASCULAR RISK Normal [facility] Comment on above: Performed By: #### P TT, PT #### [facility] [address] [place] [address] Dr. Dustin Hoover LDL CALC NORMAL SEE BELOW Normal [facility] Comment on above: Result Comment: <100 mg/dl OPTIMAL 100 - 129 mg/dl NEAR OR ABOVE OPTIMAL 130 - 159 mg/dl BORDERLINE HIGH 160 - 189 mg/dl HIGH >190 mg/dl VERY HIGH Performed By: #### P TT, PT #### [facility] [address] [address] [address] Dustin Hoover Triglyceride [Mass/Vol] 197 mg/dL Critically high <=150 [facility] Comment on above: Performed By: #### P TT, PT #### [facility] [address] [address] [address] Dustin Hoover VLDL CALC 39.4 mg/dL Normal [facility] Comment on above: Performed By: #### P TT, PT #### [facility] [address] [place], [place] [address] Dr. Dustin Hoover MG MAMM SCREEN 3D JORGE LUIS CADon 05-28-2022 MG MAMM SCREEN 3D JORGE LUIS CAD Patient: JENNIFER MANZANO Exam Date: 05/28/2022 : 1980 Gender:F Ordering : DEMETRIA PHILLIPS Admission #: [id number] Family : Order #: [id number] CLICK HERE TO VIEW EXAM RADIOLOGY REPORT PROCEDURE: MAMMOGRAM SCREENING 3D BILATERAL CAD COMPARISON: None. INDICATIONS: Screening mammography Calculator Name NCI Breast Cancer Risk Assessment Tool 5 Year Breast Cancer Risk 0.80% Lifetime Breast Cancer Risk 11.90% Personal Breast Cancer No Personal Ovarian Cancer No Treatments None Family Cancers Aunt-maternal with breast cancer at age 60; Grandmother-maternal with breast cancer at age 65. LOCATION: [facility] BREAST COMPOSITION: Almost entirely fatty. FINDINGS: DIAGNOSTIC CATEGORY 1--NEGATIVE. RIGHT BREAST: No significant suspicious finding. LEFT BREAST: No significant suspicious finding. RECOMMENDATIONS: ROUTINE MAMMOGRAM AND CLINICAL EVALUATION IN 12 MONTHS. PLEASE NOTE: A NORMAL MAMMOGRAM DOES NOT EXCLUDE THE POSSIBILITY OF BREAST CANCER. A CLINICALLY SUSPICIOUS PALPABLE LUMP SHOULD BE BIOPSIED. Dictated by: Jean Carlos Medina M.D. on 05/28/2022 at 13:13 Approved by: Jean Carlos Medina M.D. on 05/28/2022 at 13:[address] [facility] PROF 14(COMP METB)on 023 Albumin [Mass/Vol] 3.3 g/dL Critically low 3.4-5.0 Th e [facility] Comment on above: Performed By: #### P TT, PT #### [facility] [address] [place], [place] [address] Dr. uDstin Hoover Albumin/Globulin [Mass ratio] 0.9 {ratio} Normal [facility] Comment on above: Performed By: #### P TT, PT #### [facility] [address] [address] [address] Dustin Hoover ALP [Catalytic activity/Vol] 54 U/L Normal 46-116 [facility] Comment on above: Performed By: #### P TT, PT #### [facility] [address] [address] [address] Dustin Hoover ALT [Catalytic activity/Vol] 18 U/L Normal 14-59 [facility] Comment on above: Performed By: #### P TT, PT #### [facility] [address] [address] [address] Dustin Hoover Anion gap [Moles/Vol] 10.8 mmol/L Normal Th e [facility] Comment on above: Performed By: #### P TT, PT #### [facility] [address] [place] [address] Dr. Dustin Hoover AST [Catalytic activity/Vol] 11 U/L Critically low 15-37 [facility] Comment on above: Performed By: #### P TT, PT #### [facility] [address] [address] [address] Dustin Hoover Bilirubin [Mass/Vol] 0.3 mg/dL Normal 0.2-1.0 [facility] Comment on above: Performed By: #### P TT, PT #### [facility] [address] [place] [address] Dr. Dustin Hoover Calcium [Mass/Vol] 8.5 mg/dL Normal 8.5-10.1 [facility] Comment on above: Performed By: #### P TT, PT #### [facility] [address] [address] [address] Dustin Hoover Chloride [Moles/Vol] 105 mmol/L Normal 98-107 [facility] Comment on above: Performed By: #### P TT, PT #### [facility] [address] [address] [address] Dustin Hoover CO2 [Moles/Vol] 26.2 mmol/L Normal 21.0-32.0 [facility] Comment on above: Performed By: #### P TT, PT #### [facility] [address] [address] [address] Dustin Hoover Creatinine [Mass/Vol] 0.61 mg/dL Normal 0.55-1.02 [facility] Comment on above: Performed By: #### P TT, PT #### [facility] [address] [address] [address] Dustin Hoover EGFR-AF BOTSWANAN >60 Normal >=60 [facility] Comment on above: Performed By: #### P TT, PT #### [facility] [address] [address] [address] Dustin Hoover EGFR-NON AF BOTSWANAN >60 Normal >=60 [facility] Comment on above: Performed By: #### P TT, PT #### [facility] [address] [place] [address] Dr. Dustin Hoover Globulin (S) [Mass/Vol] 3.7 g/dL Normal T [facility] Comment on above: Performed By: #### P TT, PT #### [facility] [address] [place] [address] Dr. Dustin Hoover Glucose [Mass/Vol] 99 mg/dL Normal 74-106 [facility] Comment on above: Performed By: #### P TT, PT #### [facility] [address] [place] [address] Dr. Dustin Hoover Potassium [Moles/Vol] 4.0 mmol/L Normal 3.5-5.1 [facility] Comment on above: Performed By: #### P TT, PT #### [facility] [address] [address] [address] Dustin Hoover Protein [Mass/Vol] 7.0 g/dL Normal 6.4-8.2 [facility] Comment on above: Performed By: #### P TT, PT #### [facility] [address] [place] [address] Dr. Dustin Hoover Sodium [Moles/Vol] 138 mmol/L Normal 136-145 [facility] Comment on above: Performed By: #### P TT, PT #### [facility] [address] [place] [address] Dr. Dustin Hoover Urea nitrogen [Mass/Vol] 8.0 mg/dL Normal 7.0-18.0 [facility] Comment on above: Performed By: #### P TT, PT #### [facility] [address] [place], [place] [address] Dr. Dustin Hoover Urea nitrogen/Creatinine [Mass ratio] 13.1 mg/mg Normal [facility] Comment on above: Performed By: #### P TT, PT #### [facility] [address] [place] [address] Dr. Dustin Hoover PROTIMEon 05-28-2022 INR Coag (PPP) [Relative time] 0.97 {INR} Normal [facility] Comment on above: Performed By: #### P TT, PT #### [facility] [address] [place] [address] Dr. Dustin Hoover INR GUIDELINES SEE BELOW Normal [facility] Comment on above: Result Comment: MARIA DOLORES RED INR: 2.0 - 3.0 CONDITIONS NOT LISTED BELOW 2.5 - 3.5 FOR PROSTHETIC HEART VALVE REPLACEMENT 2.5 - 3.5 RECURRENT THROMBOSIS Performed By: #### P TT, PT #### [facility] [address] [place] [address] Dr. Dustin Hoover PT Coag (PPP) [Time] 10.3 s Normal 9.0-11.6 [facility] Comment on above: Performed By: #### P TT, PT #### [facility] [address] [place] [address] Dr. Dustin Hoover PTTon 05-28-2022 aPTT Coag (Bld) [Time] 26.9 s Normal 22.3-36.2 [facility] Comment on above: Performed By: #### P TT, PT #### [facility] [address] [place] [address] Dr. Dustin Hoover CHLAMYDIA/GONOCOCCUS QUENTIN (SW AB/URINE/PAPon 05-27-2022 Chlamydia trachomatis, QUENTIN Negative Normal Negative [facility] Comment on above: Performed By: #### P TT, PT #### [facility] [address] [place] [address] Dr. Dustin Hoover Neisseria gonorrhoeae, QUENTIN Negative Normal Negative [facility] Comment on above: Performed By: #### P TT, PT #### [facility] [address] [place] [address] Dr. Dustin Hoover DHEA SERUMon 05-27-2022 Dehydroepiandrosterone (DHEA) 382 ng/dL Normal 31-701 [facility] Comment on above: Performed By: #### P TT, PT #### [facility] [address] [place] [address] Dr. Dustin Hoover VAGINITIS/VAGINOSIS DNA PROB Michael 05-27-2022 Catherine species Negative Normal Negative [facility] Comment on above: Performed By: #### V AGINT #### [facility] [address] [place] [address] Dr. Dustin Hoover Gardnerella vaginalis Positive Abnormal Negative [facility] Comment on above: Performed By: #### V AGINT #### [facility] [address] [place] [address] Dr. Dustin Hoover Trichomonas vaginalis Positive Abnormal Negative [facility] Comment on above: Performed By: #### V AGINT #### [facility] [address] [place] [address] Dr. Dustin Hoover DHEA-SULFATEon 05-26-2022 DHEA-Sulfate 48.3 ug/dL Critically low 57.3-279.2 [facility] Comment on above: Performed By: #### D HEASUL #### [facility] [address] [place] [address] Dr. Dustin Hoover FSHon 05-26-2022 FSH 14.7 mIU/mL Normal [facility] Comment on above: Result Comment: Adul t Female: Follicular phase 3.5 - 12.5 Ovulation phase 4.7 - 21.5 Luteal phase 1.7 - 7.7 Postmenopausal 25.8 - 134.8 Performed By: #### P TT, PT #### [facility] [address] [place] [address] Dr. Dustin Hoover HEPATITIS PANEL, ACUTEon HBsAg Screen Negative Normal Negative [facility] Comment on above: Performed By: #### H EPACUT #### [facility] [address] [place] [address] Dr. Dustin Hoover HCV AB Non-Reactive Normal Non Reactive [facility] Comment on above: Performed By: #### H EPACUT #### [facility] [address] [address] [address] Dustin Hoover Hep A Ab, IgM Negative Normal Negative [facility] Comment on above: Performed By: #### H EPACUT #### [facility] [address] [address] [address] Dustin Hoover Hep B Core Ab, IgM Negative Normal Negative [facility] Comment on above: Performed By: #### H EPACUT #### [facility] [address] [place] [address] Dr. Dustin Hoover Interpretation: Comment Normal [facility] Comment on above: Result Comment: Not infected with HCV unless early or acute infection is suspected (which may be delayed in an immunocompromised individual), or other evidence exists to indicate HCV infection. Performed By: #### H EPACUT #### [facility] [address] [place] [address] Dr. Dustin Hoover HIV 1 AND 2 WITH REFLEXon HIV Screen 4th Generation wRfx Non-Reactive Normal Non Reactive [facility] Comment on above: Result Comment: HIV Negative HIV-1/HIV-2 antibodies and HIV-1 p24 antigen were NOT detected. There is no laboratory evidence of HIV infection. Performed By: #### H IV12 #### [facility] [address] [place] [address] Dr. Dustin Hoover LUTEINIZING HORMONE (LH)on 0 05-26-2022 LH 41.0 mIU/mL Normal [facility] Comment on above: Result Comment: Adul t Female: Follicular phase 2.4 - 12.6 Ovulation phase 14.0 - 95.6 Luteal phase 1.0 - 11.4 Postmenopausal 7.7 - 58.5 Performed By: #### L BCLH #### [facility] [address] [place] [address] Dr. Dustin Hoover RPR QUANTon 05-26-2022 Rapid Plasma Reagin, Quant Non-Reactive Normal NonRea<1:1 [facility] Comment on above: Result Comment: Elder dickinson Note: This test does not meet current guidelines for screening and diagnosis of syphilis. This test is intended for following treatment response in patients being treated for syphilis infection. To screen for syphilis infection, a reflex cascade that includes both RPR and a treponema-specific assay should be utilized, such as Treponema pallidum (Syphilis) Screening Kohler (486743) or Rapid Plasma Reagin (RPR) Test With Reflex to Quantitative RPR and Confirmatory Treponema pallidum Antibodies ([id number]). Performed By: #### P TT, PT #### [facility] [address] [place] [address] Dr. Dustin Hoover CBC AUTO DIFFon 05-25-2022 BASO # 0.1 103/ul Normal 0.0-0.1 [facility] Comment on above: Performed By: #### C BC #### [facility] [address] [place] [address] Dr. Dustin Hoover Basophils/100 WBC (Bld) 0.7 % Normal 0.2-2.0 [facility] Comment on above: Performed By: #### C BC #### [facility] [address] [place] [address] Dr. Dustin Hoover EO # 0.5 103/ul Normal 0.0-0.7 [facility] Comment on above: Performed By: #### C BC #### [facility] [address] [place] [address] Dr. Dustin Hoover Eosinophils/100 WBC (Bld) 2.6 % Normal 0.9-7.0 [facility] Comment on above: Performed By: #### C BC #### [facility] [address] [place] [address] Dr. Dustin Hoover Erythrocyte distribution width (RBC) [Ratio] 17.2 % Critically high 11.0-15.0 [facility] Comment on above: Performed By: #### C BC #### [facility] [address] [place] [address] Dr. Dustin Hoover Hematocrit (Bld) [Volume fraction] 39.7 % Normal 36.0-48.0 [facility] Comment on above: Performed By: #### C BC #### [facility] [address] [place] [address] Dr. Dustin Hoover Hemoglobin (Bld) [Mass/Vol] 12.4 g/dL Normal 12.0-16.0 [facility] Comment on above: Performed By: #### C BC #### [facility] [address] [place] [address] Dr. Dustin Hoover IG # 0.13 10e3/ul Critically high 0.00-0.03 [facility] Comment on above: Performed By: #### C BC #### [facility] [address] [place] [address] Dr. Dustin Hoover IG % 0.7 % Critically high 0.0-0.5 [facility] Comment on above: Performed By: #### C BC #### [facility] [address] [place] [address] Dr. Dustin Hoover LYMPH # 4.1 103/ul Critically high 1.2-3.8 [facility] Comment on above: Performed By: #### C BC #### [facility] [address] [place] [address] Dr. Dustin Hoover Lymphocytes/100 WBC (Bld) 22.9 % Normal 20.5-60.0 [facility] Comment on above: Performed By: #### C BC #### [facility] [address] [place] [address] Dr. Dustin Hoover MANUAL DIFF REQ NO Normal [facility] Comment on above: Performed By: #### C BC #### [facility] [address] [place] [address] Dr. Dustin Hoover MCH (RBC) [Entitic mass] 23.8 pg Critically low 26.7-[address] [facility] Comment on above: Performed By: #### C BC #### [facility] [address] [place] [address] Dr. Dustin Hoover MCHC (RBC) [Mass/Vol] 31.2 g/dL Normal 29.9-35.2 [facility] Comment on above: Performed By: #### C BC #### [facility] [address] [place] [address] Dr. Dustin Hoover MCV (RBC) [Entitic vol] 76.2 fL Critically low 81.0-99. 0 [facility] Comment on above: Performed By: #### C BC #### [facility] [address] [place] [address] Dr. Dustin Hoover MONO # 1.3 103/ul Critically high 0.3-0.8 [facility] Comment on above: Performed By: #### C BC #### [facility] [address] [place] [address] Dr. Dustin Hoover Monocytes/100 WBC (Bld) 7.0 % Normal 1.7-12.0 [facility] Comment on above: Performed By: #### C BC #### [facility] [address] [place] [address] Dr. Dustin Hoover NEUT # 11.9 103/ul Critically high 1.4-6.5 [facility] Comment on above: Performed By: #### C BC #### [facility] [address] [place] [address] Dr. Dustin Hoover Neutrophils/100 WBC (Bld) 66.1 % Normal 43.0-75.0 [facility] Comment on above: Performed By: #### C BC #### [facility] [address] [place] [address] Dr. Dustin Hoover Platelet mean volume (Bld) [Entitic vol] 10.1 fL Normal 9.5-13.5 [facility] Comment on above: Performed By: #### C BC #### [facility] [address] [place] [address] Dr. Dustin Hoover PLT 499 103/ul Critically high 150-450 [facility] Comment on above: Performed By: #### C BC #### [facility] [address] [place] [address] Dr. Dustin Hoover RBC 5.21 106/ul Normal 4.20-5.40 [facility] Comment on above: Performed By: #### C BC #### [facility] [address] [place] [address] Dr. Dustin Hoover WBC 18.0 103/ul Critically high 4.0-11.0 [facility] Comment on above: Performed By: #### C BC #### [facility] [address] [place] [address] Dr. Dustin Hoover FREE T4on 05-25-2022 Free T4 [Mass/Vol] 0.82 ng/dL Normal 0.76-1.46 [facility] Comment on above: Performed By: #### P TT, PT #### [facility] [address] [place] [address] Dr. Dustin Hoover GLYCOHEMOGLOBIN A1Con 2022 ADA RECOMMENDATION SEE BELOW Normal [facility] Comment on above: Result Comment: ADA RECOMMENDED LIMIT 4.0 - 6.0 ADA THERAPEUTIC TARGET < 7.0 ACTION SUGGESTED > 7.0 Performed By: #### A 1C #### [facility] [address] [place] [address] Dr. Dustin Hoover Glucose [Mass/Vol] 108 mg/dL Normal [facility] Comment on above: Performed By: #### A 1C #### [facility] [address] [place] [address] Dr. Dustin Hoover HbA1c (Bld) [Mass fraction] 5.4 % Normal 4.5-6.2 [facility] Comment on above: Performed By: #### A 1C #### [facility] [address] [place] [address] Dr. Dustin Hoover PREG QUANT HCGon 05-25-2022 HCG QUANT 1 mIU/mL Normal [facility] Comment on above: Performed By: #### P TT, PT #### [facility] [address] [place] [address] Dr. Dustin Hoover HCG RANGE SEE BELOW Normal [facility] Comment on above: Result Comment: 5-50 0.2-1 WEEK 50-500 1-2 WEEKS 100-5,000 2-3 WEEKS 500-10,000 3-4 WEEKS 1,000-50,000 4-5 WEEKS 10,000-100,000 5-6 WEEKS 15,000-200,000 6-8 WEEKS 10,000-100,000 2-3 MONTHS Performed By: #### P TT, PT #### [facility] [address] [address] [address] Dustin Hoover TSHon 05-25-2022 TSH 2.768 uIU/mL Normal 0.358-3.740 [facility] Comment on above: Performed By: #### P TT, PT #### [facility] [address] [address] [address] Dustin Hoover Vital Signs Date Time Vital Sign Value Performing Clinician Facility 06-25-2023 15:14-0400 Body temperature 98.1 [degF] [facility] 06-25-2023 15:14-0400 Diastolic blood pressure 88 mm[Hg] [facility] 06-25-2023 15:14-0400 Heart rate 105 /min [facility] 06-25-2023 15:14-0400 Respiratory rate 18 /min [facility] 06-25-2023 15:14-0400 SaO2% (BldA) [Mass fraction] 95 % [facility] 06-25-2023 15:14-0400 Systolic blood pressure 119 mm[Hg] [facility] 06-23-2023 14:22-0400 Body height 157.[address] [facility] 06-22-2023 22:00-0400 Body weight 147.[address] [facility] 06-03-2023 21:42-0400 Body mass index (BMI) [Ratio] 59.55 kg/m2 [email or web address] DO Work Phone: [employer] 06-03-2023 21:42-0400 Body weight 147.69 kg [email or web address] DO Work Phone: [employer] 05-28-2023 18:56-0400 Body mass index (BMI) [Ratio] 61.16 kg/m2 [employer] [facility] 05-28-2023 18:56-0400 Body weight 151.68 kg Butch Furlong DO Work Phone: [facility] 05-28-2023 18:56-0400 Diastolic blood pressure 68 mm[Hg] Butch Furlong DO Work Phone[facility] 05-28-2023 18:56-0400 Heart rate 71 /min Butch Furlong DO Work Phone[facility] 05-28-2023 18:56-0400 Systolic blood pressure 104 mm[Hg] Butch Furlong DO Work Phone: [facility] 05-18-2023 19:08-0400 Body mass index (BMI) [Ratio] 60.36 kg/m2 Megan Cash [employer] Work Phone: [facility] [employer] 05-18-2023 19:08-0400 Body temperature 98.01 [degF] Megan Cash [employer] Work Phone: [facility] 05-18-2023 19:08-0400 Body weight 149.69 kg Megan Cash [employer] Work Phone: [facility] 05-18-2023 19:08-0400 Diastolic blood pressure 68 mm[Hg] Megan Cash [employer] Work Phone: [facility] [employer] 05-18-2023 19:08-0400 Heart rate 71 /min Meganloraine Cash [employer] Work Phone: [facility] 05-18-2023 19:08-0400 Respiratory rate 18 /min Megan Cash [employer] Work Phone: [facility] [employer] [facility] 05-18-2023 19:08-0400 SaO2% (BldA) [Mass fraction] 98 % Megan Welchillo [employer] Work Phone: [facility] [employer] 05-18-2023 19:08-0400 Systolic blood pressure 104 mm[Hg] Megan [employer]DINDIRECT SAL[employer] Work Phone: [facility] [employer] [facility] 05-14-2023 18:39-0500 Body mass index (BMI) [Ratio] 57.5 kg/m2 Butch Furlong DO Work Phone: [facility] [employer] 05-14-2023 18:39-0500 Body temperature 97.59 [degF] Butch Furlong DO Work Phone: [facility] [employer] 05-14-2023 18:39-0500 Body weight 142.61 kg Butch Furlong DO Work Phone: [facility] [employer] 05-14-2023 18:39-0500 Diastolic blood pressure 68 mm[Hg] Butch Furlong DO Work Phone: [facility] [employer] 05-14-2023 18:39-0500 Heart rate 90 /min Butch Furlong DO Work Phone: [facility] 05-14-2023 18:39-0500 Respiratory rate 18 /min Butch Furlong DO Work Phone: [facility] [employer] 05-14-2023 18:39-0500 SaO2% (BldA) [Mass fraction] 98 % Butch Furlong DO Work Phone: [facility] [employer] 05-14-2023 18:39-0500 Systolic blood pressure 110 mm[Hg] Butch Furlong DO Work Phone: [facility] 04-30-2023 17:38-0500 Body height 157.5 cm Butch Furlong DO Work Phone: [facility] [employer] 04-30-2023 17:38-0500 Body mass index (BMI) [Ratio] 56.53 kg/m2 Butch Furlong DO Work Phone: [facility] [employer] 04-30-2023 17:38-0500 Body temperature 97.81 [degF] Butch Oneilng DO Work Phone: [facility] 04-30-2023 17:38-0500 Body weight 140.2 kg Butch Oneilng DO Work Phone: [facility] 04-30-2023 17:38-0500 Diastolic blood pressure 62 mm[Hg] Butch Oneilng DO Work Phone: [facility] 04-30-2023 17:38-0500 Heart rate 106 /min Butch Oneilng DO Work Phone: [facility] [employer] [facility] 04-30-2023 17:38-0500 Respiratory rate 20 /min Butch Oneilng DO Work Phone: [facility] 04-30-2023 17:38-0500 SaO2% (BldA) [Mass fraction] 91 % Butch Oneilng DO Work Phone: [facility] [employer] 04-30-2023 17:38-0500 Systolic blood pressure 99 mm[Hg] Butch Oneilng DO Work Phone: [facility] Encounters Encounter Date Encounter Type Care Provider Facility Start: 07-29-2023 End: 07-29-2023 ambulatory TRAV VALDOVINOS Not Available Start: 07-08-2023 End: 07-08-2023 ambulatory [facility] Start: 2023 End: 06-30-2023 ambulatory TRAV VALDOVINOS Not Available Start: 06-23-2023 Non-patient / Non-visit [facility] Work Phone: Start: 06-22-2023 End: 06-25-2023 Evaluation and management of inpatient [facility] Work Phone: Start: 06-22-2023 End: 06-22-2023 Emergency department patient visit [place] Jane [facility] Start: 06-03-2023 ambulatory Butch robins DO Work Phone: [facility] Comment on above: Pedal edema (Primary Dx); Intertrigo; Morbid obesity ([facility]) Start: 05-28-2023 ambulatory Butch robins DO Work Phone: [facility] Comment on above: Bilateral primary os teoarthritis of hip (Primary Dx); Muscle weakness (generalized); Other abnormalities of gait and mobility; Spinal stenosis of lumbar region, unspecified whether neurogenic claudication present Start: 05-18-2023 Continuing Care Megan Fabrice Yuri tiffaniynuior [employer] Work Phone: [facility] Comment on above: Spinal stenosis of l umbar region, unspecified whether neurogenic claudication present (Primary Dx); Bipolar affective disorder, current episode mixed, current episode severity unspecified ([facility]); Primary osteoarthritis of both hips; Schizophrenic disorder ([facility]); Class 3 severe obesity due to excess calories with serious comorbidity and body mass index (BMI) of 60.0 to 69.9 in adult ([facility]); Full code status Start: 05-14-2023 Continuing Care Butch robins DO Work Phone: [facility] Comment on above: Spinal stenosis of l umbar region, unspecified whether neurogenic claudication present (Primary Dx); Bilateral primary osteoarthritis of hip; Muscle weakness (generalized); Other abnormalities of gait and mobility; Bipolar affective disorder, current episode mixed, current episode severity unspecified ([facility]); Schizophrenic disorder ([facility]) Start: 04-30-2023 Continuing Care Butch robins DO Work Phone: [facility] Comment on above: Spinal stenosis of l umbar region, unspecified whether neurogenic claudication present (Primary Dx); Syphilis (acquired); Bipolar affective disorder, current episode mixed, current episode severity unspecified ([facility]); Anxiety; Primary osteoarthritis of both hips; TB lung, latent; Schizophrenic disorder ([facility]); Class 3 severe obesity due to excess calories without serious comorbidity with body mass index (BMI) of 50.0 to 59.9 in adult ([facility]) Start: 04-26-2023 ambulatory Joseph Mcneil acility:[facility] Start: 04-26-2023 Registered [facility] Start: 07-23-2022 ambulatory DEMETRIA SHAMMO Facility:[facility] Start: 06-30-2022 ambulatory DEMETRIA SHAMMO Facility:[facility] Start: 06-16-2022 End: 06-17-2022 ambulatory DEMETRIA SHAMMO Facility:[facility] Start: 06-09-2022 ambulatory DEMETRIA SHAMMO Facility:[facility] Start: 06-02-[address] EMILY BECKER . Facili ty:[facility] Start: 05-29-2022 Encounter for genera l adult medical examination without abnormal findings DEMETRIA SHAMMO [facility] Start: 05-28-2022 End: 05-28-[address] EMILY BECKER . Facility:[facility] Start: 05-28-2022 End: 05-29-2022 ambulatory DEMETRIA SHAMMO Facility:[facility] Start: 05-28-2022 End: 05-29-2022 Encounter for general adult medical examination without abnormal findings DEMETRIA SHAMMO Facility:[facility] Start: 05-27-2022 End: 06-02-2022 ambulatory DEMETRIA SHAMMO Facility:[facility] Start: 05-25-2022 End: 05-25-2022 ambulatory DEMETRIA SHAMMO Facility:[facility] Start: 05-25-2022 End: 05-26-2022 ambulatory DEMETRIA SHAMMO Facility:[facility] Start: 05-21-2022 End: 05-21-[address] JEAN CARLOS MEDINA Facility:[facility] Plan of Treatment Date Care Activity Detail Author Start: 05-28-2032 DTaP,Tdap and Td Vaccines (2 - Td or Tdap) DTaP,Tdap and Td Vaccines (2 - Td or Tdap) [facility] Start: 05-27-2024 Adult BMI Screening Adult BMI Screen ing [facility] Start: 05-23-2024 Tobacco Screening Tobacco Screening [facility] Start: 05-20-2024 Tobacco Screening Tobacco Screening [facility] Start: 05-17-2024 Adult BMI Screening Adult BMI Screen ing [facility] Start: 04-30-2024 Adult BMI Screening Adult BMI Screen ing [facility] Start: 04-30-2024 Tobacco Screening Tobacco Screening [facility] Start: 01-31-2024 Tobacco Screening Tobacco Screening [facility] Start: 06-25-2023 [facility] Start: 06-24-2023 Referral to painting technician [facility] Start: 06-24-2023 Referral to clinical insurance assistant [facility] Start: 06-22-2023 Hospital admission [facility] Start: 06-22-2023 [facility] Start: 11-06-2022 Influenza vaccination Influenza Vacc ine [facility] Start: 06-28-2000 Screening for malign ant neoplasm of cervix Pap Smear [facility] Start: 06-28-1997 Adult BMI Follow Up Plan Adult BMI Follow Up Plan [facility] Start: 1991 Depression Screening Depression Scre ening [facility] Start: 1980 Tobacco Counseling Tobacco Counselin g [facility] Patient Education Depression, Ad ult (DC) [facility] DC Instructions [facility] Work Phone: Patient referral [facility] Work Phone: Immunizations Immunization Date Immunization Notes Care Provider Fa natalie 05-28-2022 tetanus toxoid, redu radha diphtheria toxoid, and acellular pertussis vaccine, adsorbed Butch Oliva DO Work Phone: [facility] Payers Date Payer Category Payer Self-pay 2022 Medicaid [facility] [place] [id number] 2022-Present [phone] [address] [place] [address] [id number] 2006 Medicaid [id number] 1979 Unknown [id number] 1979 Unknown [id number] [id number]3 1979 Unknown [id number] 2.16.840.1.393833.3.579.2.593 1979 Unknown [id number] 2.16.840.1.958738.3.579.2.593 1979 Unknown [id number] 2.16.840.1.962430.3.579.2.593 1979 Unknown [id number] 2.16.840.1.941249.3.579.2.593 1979 Unknown [id number] 2.16.840.1.606358.3.579.2.593 1979 Unknown [id number] 2.16840.1.215663.3.579.2.593 1979 Unknown [id number] 2.16840.1.609469.3.579.2.593 1979 Unknown [id number] 2.16840.1.230561.3.579.2.593 1979 Unknown [id number] 2.16840.1.732782.3.579.2.593 1979 Unknown [id number] 2.16840.1.868064.3.579.2.1286 1979 Unknown [id number] 2.16840.1.706541.3.579.2.1286 1979 Unknown [id number] 2.16840.1.515043.3.579.2.1259 1979 Unknown [id number] 2.16840.1.326592.3.579.2.1259 1979 Unknown [id number] 2.16.840.1.286805.3.579.2.1259 Unknown [id number] 2.16.840.1.245194.3.579.2.531 Unknown [id number] 2.16840.1.435953.3.579.2.531 Social History Date Type Detail Facility Start: 03-08-1989 Tobacco smoking stat [facility] Smokes tobacco daily [facility] Start: 03-08-1989 History of tobacco use Cigarette Smo ker [facility] Start: 01-24-2023 End: 04-30-2023 Cigarettes smoked current (pack per day) - Reported 0.3 [facility] History of tobacco use Passive smoker Pro [facility] Start: 04-30-2023 Tobacco use and exposure Smoke less tobacco non-user [facility] Start: 04-30-2023 End: 05-24-2023 Alcohol intake Ex-drinker (finding) [facility] Start: 01-24-2023 End: 04-30-2023 Tobacco use panel [facility] In the past 12 month s, has lack of transportation kept you from medical appointments or from getting medications? Yes [facility] Start: 04-30-2023 Tobacco Comment Started smokin g at 9 years of age [facility] Start: 1980 Sex Assigned At Not on file P [facility] Start: 06-24-2023 Tobacco smoking stat [facility] Smoker (finding) [facility] Start: 1980 Sex Assigned At Female F [facility] Goals Date Patient Goal Desired Activity /State Functional Status Date Assessment Result Facility 06-25-2023 Functional status Patient at Baseline [facility] Work Phone: Mental Status Date Assessment Result Facility 06-25-2023 Cognitive function Cognitive Sta tus Patient at Baseline [facility] Work Phone: Clinical Notes 05-21-2022 to 06-25-2023 Note Date & Type Note Facility 06-25-2023 Discharge summary Note Date/Time June 25, 2023 7:11am [facility] [address] [place] [address] Discharge Summary Signed Patient: Jennifer Mendes MR#: [id number] : 1980 Acct:[id number] Age/Sex: 42 / F Adm Date: 4 Loc: 1S Room: [address] [place] [address]: Joseph Tello MD Copies to: NON STAFF Joseph Tello MD~ Providers Date of Discharge: 06/25/23 Discharging Provider: Joseph Tello Primary Care Provider: NON STAFF Consults: 06/23/23 07:38 OT [Consult to Occupational Therapy] Routine Comment: Physician Instructions: ADLs and iADLs for possible placement Consult to OT for:: Evaluation and Treat PT [Consult to Physical Therapy] Routine Comment: Physician Instructions: ADLs and iADLs for possible placement Consult to PT for:: Evaluation and Treat 06/24/23 06:37 Consult to Adult Hospitalist Routine Comment: Consulting Provider: Community Hospitalist (Adult) Reason For Exam: Severe back pain Has Provider Been Notified: Yes Date of Notification: 06/24/23 Time of Notification: 07:43 06/24/23 13:41 Consult to Pain Management Routine Comment: Consulting Provider: [facility] - Pain Management Reason For Exam: Severe back pain Has Provider Been Notified: Yes Date of Notification: 06/24/23 Time of Notification: 14:31 Extended Comment: Message left Dr Moore office Discharge Diagnosis (1) Chronic pain: (2) Generalized anxiety disorder: (3) Major depressive disorder, recurrent, moderate: Final Diagnosis Final Discharge Diagnosis: MDD Summary Hospital Course Hospital course: Ms. Mendes is a 42 year old female with a reported history of degenerative disc disease, hypertension, morbid obesity, GERD, depression, anxiety, chronic pain who presents for inpatient admission after making suicidal statements and plan to overdose on fentanyl. At the time of the interview, she presented as frustrated. She said she only feels depressed and angry due to pain. She complains of low frustration tolerance, decreased interest in activities normally enjoyed, low energy and fatigue throughout the day even when sleeping adequately, feelings of worthlessness, guilt for no reason, and poor focus and concentration in routine activities. Sleep has been poor and appetite fluctuates. The patient admits to thoughts of at times associated with suicidal thoughts. The patient stated she does nothing to alleviate her feelings of anger, depression, or anxiety. She reports symptoms of anhedonia and described the quality of her life and shitty . Patient stated she has thoughts of killing herself everyday and she would overdose on fentanyl. Every morning patient stated she wishes she was . Past psychiatric history is relevant for previous psychiatric hospitalizations and suicide attempts. She admitted to overdosing on pill about 4 years ago adding she would not hurt herself while on the unit. Recent loss per patient, I lost everything. Everything that I own, I lost my family. I don't have any belongings. Patient stated she has 5 siblings that she is not in touch with. Family history is relevant for her mom struggling with depression and other comorbid mental health disorders. Pertinent medical problems and degenerative disc disease which she stated was never managed properly. Patient stated she has been in 4 different nursing homeslast 5 months for suicidal ideation. She denies symptoms suggestive of psychosis, bryan or agitation. We initially discussed increasing Cymbalta but is currently at the maximum dose of 60 mg p.o. twice daily. We will continue home meds and adjust accordingly. Risks, benefits and indications of medications were discussed with the patient. The patient verbalized understanding. Patient said she has been depressed due to chronic pain. She was educated about risks and benefits of current med regimen. Hospitalist was consulted and please see their notes for further information. Depression and anxiety are stabilizinggradually on the current medication regimen. Anxiety is mild in intensity with attempted utilization of coping skills. She denies SI/HI and verbalized the intent to notify staff if she has such thoughts. Her affect is brighter on exam.She continues to be compliant with prescribed medications and is visible within the unit milieu. She has been working with high risk case manager on her aftercare she agreed to continue the current medications regimen. She understands risks, benefits, and indications of current medication regimen. She would like to go back to SNF. She has not history of recent suicide attempts, presented as future oriented, participated in group activities, articulated needs appropriately, and displayedno self-harm behaviors. Imminent risk is low given factors noted above. She denied any current symptom that would pose a threat to self or others. Further inpatient hospitalization unlikely to mitigate chronic suicide risk, and pt agrees to f/u with outpatient psych care. We also discussed benefits of outpatient CBT and DBT to help with depression and chronic pain. Overall, she has a positive mood and attitude towards life. Appearance: dressed casually Mental Status: mental status grossly normal Mood: Euthymic mood Affect: Normal affect Speech and Movement: speech and movement normal and speech clear Attitude: cooperative Thought Process: normal Thought Content: Denied hallucinations, no homicidality and no suicidality Insight: fair Judgment: fair Impulse control: fair Time spent discussing smoking cessation with patient: more than 10 minutes Condition Condition at Discharge: Stable Time Spent with Patient Time spent providing/coordinating discharge services (# min): 99 Discharge Plan Discharge Plan Patient Disposition: [facility] Care/Resident Activity: With Assist Diet: Regular Additional Instructions: Important Contact Information You can call [facility] at [phone] any time day or night if you have emergent questions or question regarding discharge instructions. If at any time you are feeling an increase inyour psychiatric symptoms, call your physician or behavioral healthcare provider. If any time you have thoughts of harming yourself or others contact one of the following: Call (available 28/09) Crisis Text Line (available 28/09) text 4HOPE to [phone] [facility] Hope Line (available 8 a.m. Midnight) call [phone] ([phone]) Prescriptions: Continued aripiprazole 20 mg tablet 20 mg PO DAILY duloxetine 60 mg capsule,delayed release(DR/EC) 60 mg PO BID famotidine 20 mg tablet 20 mg PO DAILY furosemide 20 mg tablet 20 mg PO DAILY ibuprofen 800 mg tablet 800 mg PO TID PRN (Reason: pain) lidocaine 4 % adhesive patch,medicated 1 patch TOPICAL DAILY methocarbamol 500 mg tablet 1,500 mg PO TID clonazepam 1 mg tablet 1 mg PO TID prazosin 5 mg capsule 5 mg PO HS oxycodone-acetaminophen 5-325 mg tablet 1 tab PO QID PRN (Reason: pain) No Action gabapentin 600 mg tablet 600 mg PO TID Follow Up: [facility] [Other] (facility to manage all care and needs) Exam Physical Exam Vital Signs: Temp Pulse Resp BP Pulse Ox O2 Del Method 97.9 F 78 18 90/65 L 96 Room Air 06/24/23 20:20 06/24/23 20:20 06/24/23 20:20 06/24/23 20:20 06/24/23 20:20 06/24/23 20:20 Documented By: Joseph Tello MD 4 [id number] Signed By: <Electronically signed by Joseph Tello MD> 06/25/23 0711 [facility] Work Phone: 1(883) 171-520104-19-2024 Consult note Author Marwan Wassouf [facility] June 24, 2023 11:55pm Note Date/Time June 24, 2023 12: 47pm [facility] [address] [place] [address] Hospitalist Consult Note Signed Patient: Jennifer Mendes MR#: [id number] : 1980 Acct:[id number] Age/Sex: 42 / F Adm Date: 4 Loc: Room: [address] [place] [address] Type: ADM IN Attending Dr: Joseph Tello MD Copies to: NON STAFF MD Anita Hull, CECY Pradhan MD~ HPI DATE OF CONSULTATION: 06/24/23 REQUESTING PROVIDER: Joseph Tello Consult Narrative Reason for Consult: Back pain HPI: Ms. Mendes is a 42 year old female with a past medical history of morbid obesitydegenerative disc disease, chronic pain, hypertension, GERD, anxiety depression who is admitted into the inpatient psychiatric unit for suicidal attempts and plan to overdose on fentanyl. The hospitalist team has been consulted for medical management of severe back pain. Patient seen and evaluated at bedside. 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 Reporting that her pain is exacerbated due to her bed not being appropriate bariatric bed and also due to increased weight that she attributes to her psych medications. She reports that she has gained 70 pounds in 4 months. Denies chest pain or palpitation. No cough, dyspnea, orpain with inspiration. No abdominal pain or indigestion, constipation or diarrhea, nausea or vomiting. No dysuria or retention. No headache or dizziness. No fevers Review of Systems Review of Systems Review of systems: 10 point review of systems obtained, negative unless noted in the HPI below PMFSH Source: Old Records Reviewed Social History Smoking Status: Current every day smoker Tobacco Type: cigarettes Substance Use Type: None Meds Medications and Allergies Allergies metronidazole [From Flagyl] Allergy (Intermediate, Verified 06/22/23 19:38) Hives Home Medications aripiprazole 20 mg tablet 20 mg PO DAILY 06/22/23 [History Confirmed 06/22/23] clonazepam 1 mg tablet 1 mg PO TID 06/22/23 [History Confirmed 06/22/23] duloxetine 60 mg capsule,delayed release 60 mg PO BID 06/22/23 [History Confirmed 06/22/23] famotidine 20 mg tablet 20 mg PO DAILY 06/22/23 [History Confirmed 06/22/23] furosemide 20 mg tablet 20 mg PO DAILY 06/22/23 [History Confirmed 06/22/23] gabapentin 600 mg tablet 600 mg PO TID 06/22/23 [History Confirmed 06/22/23] ibuprofen 800 mg tablet 800 mg PO TID PRN pain 06/22/23 [History Confirmed 06/22/23] lidocaine 4 % topical patch 1 patch topical DAILY 06/22/23 [History Confirmed 06/22/23] methocarbamol 500 mg tablet 1,500 mg PO TID 06/22/23 [History Confirmed 06/22/23] oxycodone-acetaminophen 5 mg-325 mg tablet 1 tab PO QID PRN pain 06/22/23 [History Confirmed 06/22/23] prazosin 5 mg capsule 5 mg PO HS 06/22/23 [History Confirmed 06/22/23] Active Medications: Active Medications Generic Name Dose Route Start Last Admin Trade Name Freq PRN Reason Stop Dose Admin Acetaminophen 500 mg 06/22/23 19:38 06/24/23 08:46 Acetaminophen 500 Mg Tablet PO 06/21/24 19:37 500 mg Q6H PRN Administration Fever or Pain Al Hydrox/Mg Hydrox/Simethicone 30 ml 06/22/23 19:38 Mag Hydrox/Al Hydrox/Simeth 30 Ml Udc PO 06/21/24 19:37 Q6H PRN Indigestion Aripiprazole 20 mg 06/23/23 09:00 06/24/23 08:44 Aripiprazole 20 Mg Tablet PO 06/22/24 08:59 20 mg DAILY SUSANNA Administration Benztropine Mesylate 0.5 mg 06/22/23 19:38 Benztropine 2 Mg/2 Ml Ampul IM 06/21/24 19:37 Q6H PRN Dystonia Benztropine Mesylate 0.5 mg 06/22/23 19:38 Benztropine 0.5 Mg Tablet PO 06/21/24 19:37 Q6H PRN Dystonia Clonazepam 1 mg 06/22/23 22:00 06/24/23 08:46 Clonazepam 1 Mg Tablet PO 10/13/24 21:59 1 mg TID SUSANNA Administration Duloxetine HCl 60 mg 06/22/23 21:00 06/24/23 08:44 Duloxetine 60 Mg Capsule.Dr PO 06/21/24 20:59 60 mg BID SUSANNA Administration Ergocalciferol 1,250 mcg 06/24/23 09:00 06/24/23 08:45 Ergocalciferol 1,250 Mcg (50,000 Units) Capsule PO 06/23/24 08:59 1,250 mcg Q7D@0900 SUSANNA Administration Famotidine 20 mg 06/23/23 09:00 06/24/23 08:44 Famotidine 20 Mg Tablet PO 06/22/24 08:59 20 mg DAILY SUSANNA Administration Furosemide 20 mg 06/23/23 09:00 06/24/23 08:45 Furosemide 20 Mg Tablet PO 06/22/24 08:59 20 mg DAILY SUSANNA Administration Gabapentin 600 mg 06/22/23 22:00 06/24/23 08:45 Gabapentin 600 Mg Tablet PO 06/21/24 21:59 600 mg TID SUSANNA Administration Hydroxyzine Pamoate 50 mg 06/22/23 19:38 06/22/23 21:58 Hydroxyzine Pamoate 50 Mg Capsule PO 06/21/24 19:37 50 mg Q6H PRN Administration Anxiety Ibuprofen 800 mg 06/22/23 20:59 06/24/23 08:45 Ibuprofen 800 Mg Tablet PO 06/21/24 20:58 800 mg TID PRN Administration pain Lidocaine 1 patch 06/23/23 09:00 06/24/23 08:47 Lidocaine 4% Adh..Patch TOPICAL 06/22/24 08:59 1 patch DAILY SUSANNA Administration Magnesium Hydroxide 30 ml 06/22/23 19:38 Magnesium Hydroxide Susp 30 Ml Udc PO 06/21/24 19:37 Q6H PRN Constipation Methocarbamol 1,500 mg 06/22/23 22:00 06/24/23 08:46 Methocarbamol 500 Mg Tablet PO 06/21/24 21:59 1,500 mg TID SUSANNA Administration Nicotine Polacrilex 2 mg 06/23/23 06:47 Nicotine Polacrilex 2 Mg Gum BUCCAL 06/22/24 06:46 Q2HR PRN Nicotine Cravings Olanzapine 5 mg 06/22/23 19:38 Olanzapine 10 Mg Vial *Nf* IM 06/21/24 19:37 Q6H PRN Agitation Olanzapine 5 mg 06/22/23 19:38 06/23/23 17:48 Olanzapine 5 Mg Tablet PO 06/21/24 19:37 5 mg Q6H PRN Administration Agitation Oxycodone/Acetaminophen 1 tab 06/22/23 20:59 06/24/23 10:57 Oxycodone/Acetaminophen 5-325 Mg Tablet PO 1 tab QID PRN Administration pain Prazosin HCl 5 mg 06/22/23 22:00 06/23/23 21:23 Prazosin 5 Mg Capsule PO 06/21/24 21:59 5 mg HS SUSANNA Administration Sterile Water 2.1 ml 06/22/23 19:38 Water For Injection,Sterile 10 Ml Vial INJECTION 06/21/24 19:37 PRN PRN To dilute OLANZapine (ZyPREXA) Trazodone HCl 50 mg 06/22/23 19:38 06/23/23 21:24 Trazodone 50 Mg Tablet PO 06/21/24 19:37 50 mg QHS PRN Administration Insomnia Exam Physical Exam Vital Signs: Temp Pulse Resp BP Pulse Ox O2 Del Method 97.6 F 108 H 18 101/71 94 L Room Air 06/24/23 07:30 06/24/23 07:30 06/24/23 07:30 06/24/23 07:30 06/24/23 07:30 06/24/23 07:30 Narrative: CONST-morbidly obese, resting in bed HEAD - Normocephalic and atraumatic EENT-Sclera nonicteric and conjunctive are nonerythemic, moist oral mucosa, pharynx clear NECK-Supple, no cervical lymphadenopathy CARDIAC-normal rate, regular rhythm, normal S1 & S2. PULM-diminished without wheeze or rhonchi, RA, no accessory muscle use or cough noted ABD - Soft. Bowel sounds are normal. Morbidly obese, no tenderness EXTREM-no edema BLE calves nontender SKIN- W/D good turgor MS- MAEX4 spontaneously with equal with equal strength NEURO- A&Ox3 speech clear and tongue midline, equal facial symmetry no focal motor deficits PSYCH-Mood, affect and behavior appropriate Results - Hospitalist Consult Lab Results Labs: Laboratory Results - last 72 hr 06/23/23 05:41: Triglycerides 220 H, Cholesterol 172, LDL Cholesterol, Calc 100,VLDL Cholesterol 44, HDL Cholesterol 28, Cholesterol/HDL Ratio 6.1, 25-OH Vitamin D Total 13.4 L, TSH 3rd Generation 2.27 Assessment & Plan Assessment/Plan (1) Chronic pain: (2) Generalized anxiety disorder: (3) Major depressive disorder, recurrent, moderate: Plan Chronic pain, history of DJD of the lumbar spine, her pain is also exacerbated by increased in weight ?On gabapentin, Robaxin, Tylenol, will increase frequency of oxycodone and lidocaine patch. ?Will consult pain management ?Will benefit from weight loss program, which is encouraged to follow-up with her primary care physician Major depressive disorder ?Continue plan of care per psychiatric team <Statement entered by Linsey Pradhan MD - 06/24/23 23:52> Attending Physician Attestation: I agree with the findings and plan as documented in this note and have edited itif needed to reflect my findings and plan. Linsey Pradhan MD Documented By: Anita Vann APRN 06/24/23 1244 Signed By: <Electronically signed by CECY Vann> 06/24/231955 <Electronically signed by Linsey Pradhan MD> 06/24/23 0997 [facility] Work Phone: 1(739) 616-414204-18-2024 Progress note Author Joseph martinez [facility] June 24, 2023 6:40am Note Date/Time June 24, 2023 6:4 0am [facility] [address] [place] [address] Psychiatry Progress Note Signed Patient: Jennifer Mendes MR#: [id number] : 1980 Acct:[id number] Age/Sex: 42 / F Adm Date: 4 Loc: 1S Room: 6L9942-7 Type : ADM IN Attending Dr: Joseph Tello MD Copies to: ~ Date of Service: 06/24/2023 Subjective Subjective Narrative: Ms. Mendes reports that she has no suicidal thoughts. She reports severe back pain and that is the only reason she was admitted to the hospital. She would like to he hospitalist to discuss her pain med regimen. She inquired about increasing gabapentin. Discussed importance of following up with outpatient painmanagement. She said cannabis helps reduce her pain. She denied having any supportive family and admits to feeling lonely. She said her birthday is coming next week and does not want to spend it at the hospital. Mental Status: mental status grossly normal Mood: Anxious mood Affect: constricted affect Speech and Movement: speech and movement normal and speech clear Attitude: cooperative Thought Process: normal Thought Content: Denied hallucinations, no homicidality and no suicidality Insight: Fair Judgment: Fair Exam Physical Exam Vital Signs: Temp Pulse Resp BP Pulse Ox O2 Del Method 97.6 F 88 18 104/74 95 Room Air 06/23/23 20:02 06/23/23 20:02 06/23/23 20:02 06/23/23 20:02 06/23/23 20:02 06/23/23 20:02 Objective Labs Labs: Abnormal Labs 06/23/23 05:41 Triglycerides 220 H 25-OH Vitamin D Total 13.4 L Assessment/Plan Assessment/Plan (1) Major depressive disorder, recurrent, moderate: (2) Generalized anxiety disorder: (3) Chronic pain: Plan Patient denied SI/HI. She would like to speak to hospitalist about her pain med regimen. Continue home meds and adjust accordingly. Monitor suicidal behaviors for safety of self (15-minute face check). Recommend attending groups and psychoeducation for building coping skills. Typical short- and long-term side effects of the proposed medication regimen, including contraindications and clinically significant interactions, were discussed with the patient. Side effects include but not limited to sedation, suicide risk with antidepressants, overdose, hypo or hypertension, rash, movement disorders (TD, EPS), overdose, weight gain, and appetite changes. Patient was advised to avoid driving, drinking or operating heavy machinery while taking psychiatric meds. Patient should reach out to medical provider if any of side effects occur. Patient voiced understanding of benefits and agreement with the treatment plan. Targeted symptoms and signs, possible therapeutic benefit, side effect and riskswere discussed. Case management will work on coordinating a safe discharge plan. I have reviewed evaluations by other providers (ER notes, nurses and staff). Documented By: Joseph Tello MD 4 [id number] Signed By: <Electronically signed by Joseph Tello MD> 06/24/23 0640 [facility] Work Phone: 1(256) 255-440404-17-2024 History and physical note Author Joseph martinez [facility] June 23, 2023 9:03am Note Date/Time June 23, 2023 8:5 8am [facility] [address] [place] [address] Psychiatry H&P Signed Patient: Jennifer Mendes MR#: [id number] : 1980 Acct:[id number] Age/Sex: 42 / F Adm Date: 4 Loc: Room: [address] [place] [address] Type: ADM IN Attending Dr: Joseph Tello MD Copies to: NON STAFF Joseph Tello MD~ Date of Service: 06/23/2023 HPI History of Present Illness History of present illness: Ms. Mnedes is a 42 year old female with a reported history of degenerative disc disease, hypertension, morbid obesity, GERD, depression, anxiety, chronic pain who presents for inpatient admission after making suicidal statements and plan tooverdose on fentanyl. At the time of the interview, she presented as frustrated. She said she only feels depressed and angry due to pain. She complains of low frustration tolerance, decreased interest in activities normally enjoyed, low energy and fatigue throughout the day even when sleeping adequately, feelings of worthlessness, guilt for no reason, and poor focus and concentration in routine activities. Sleep has been poor and appetite fluctuates. The patient admits to thoughts of at times associated with suicidal thoughts. The patient stated she does nothing to alleviate her feelings of anger, depression, or anxiety. She reports symptoms of anhedonia and described the quality of her life and shitty . Patient stated she has thoughts of killing herself everyday and she would overdose on fentanyl. Every morning patient stated she wishes she was . Past psychiatric history is relevant for previous psychiatric hospitalizations and suicide attempts. She admitted to overdosing on pill about 4 years ago adding she would not hurt herself while on the unit. Recent loss per patient, I lost everything. Everything that I own, I lost my family. I don't have any belongings. Patient stated she has 5 siblings that she is not in touch with. Family history is relevant for her mom struggling with depression and other comorbid mental health disorders. Pertinent medical problems and degenerative disc disease which she stated was never managed properly. Patient stated she has been [facility] for suicidal ideation. She denies symptoms suggestive of psychosis, bryan or agitation. We initially discussed increasing Cymbalta but is currently at the maximum dose of 60 mg p.o. twice daily. We will continue home meds and adjust accordingly. Risks, benefits and indications of medications were discussed with the patient. The patient verbalized understanding. Mental Status: mental status grossly normal Mood: depressed mood Affect: constricted affect Speech and Movement: speech and movement normal and speech clear Attitude: cooperative Thought Process: normal Thought Content: Denied hallucinations, no homicidality and positive suicidality Insight: Fair Judgment: Fair Review of Systems Constitutional: Pt reports chronic pain Neuro: Reports dizziness/lightheadedness. Denies TBI, seizure, memory loss. Report numbness/tingling in extremities HEENT: Denies vision/hearing changes. Pulmonary: Denies SOB, dyspnea, cough, wheezing. Cardiac: Denies chest pain/pressure. Denies edema, palpitations. GI: Denies abdominal pain, heartburn, N/V. Denies constipation and diarrhea : Denies dysuria, hematuria, polyuria. Physical exam General: not in any acute distress Skin: intact HEENT: head atraumatic, face symmetrical. Pulm: Breathing normally without excessive effort Cardio: Regular rate and rhythm Abdomen: Normal inspection Musculoskeletal: Unable to move due to chronic Neuro: Pt alert, oriented x3. Unable to evaluate gait CNI: Intact, normal olfaction CNII: Visual gregory intact CNIII,IV,: EOM intact, no nystagmus. CNV: Sensation intact to light touch. CNVII: Raises eyebrows, smile/frown, puff out cheeks symmetrically. CNVIII: Hearing intact bilaterally. CNIX,X: Voice normal, soft palate elevation normal, symmetrical. CNXI: Shoulder shrug strong, equal bilaterally. CNXII: Tongue protrusion midline PMFSH Social History Smoking Status: Current every day smoker Tobacco Type: cigarettes Substance Use Type: None Meds Medications and Allergies Allergies metronidazole [From Flagyl] Allergy (Intermediate, Verified 06/22/23 19:38) Hives Home Medications aripiprazole 20 mg tablet 20 mg PO DAILY 06/22/23 [History Confirmed 06/22/23] clonazepam 1 mg tablet 1 mg PO TID 06/22/23 [History Confirmed 06/22/23] duloxetine 60 mg capsule,delayed release 60 mg PO BID 06/22/23 [History Confirmed 06/22/23] famotidine 20 mg tablet 20 mg PO DAILY 06/22/23 [History Confirmed 06/22/23] furosemide 20 mg tablet 20 mg PO DAILY 06/22/23 [History Confirmed 06/22/23] gabapentin 600 mg tablet 600 mg PO TID 06/22/23 [History Confirmed 06/22/23] ibuprofen 800 mg tablet 800 mg PO TID PRN pain 06/22/23 [History Confirmed 06/22/23] lidocaine 4 % topical patch 1 patch topical DAILY 06/22/23 [History Confirmed 06/22/23] methocarbamol 500 mg tablet 1,500 mg PO TID 06/22/23 [History Confirmed 06/22/23] oxycodone-acetaminophen 5 mg-325 mg tablet 1 tab PO QID PRN pain 06/22/23 [History Confirmed 06/22/23] prazosin 5 mg capsule 5 mg PO HS 06/22/23 [History Confirmed 06/22/23] Exam Physical Exam Vital Signs: Temp Resp BP Pulse Ox O2 Del Method 98.0 F 18 105/68 93 L Room Air 06/23/23 07:30 06/23/23 07:30 06/23/23 07:30 06/23/23 07:30 06/23/23 07:30 Assessment/Plan (1) Major depressive disorder, recurrent, moderate: (2) Generalized anxiety disorder: (3) Chronic pain: Plan Admit to for management of depression and to ensure safety of self due to SI. Continue home meds and adjust accordingly. Monitor suicidal behaviors for safety of self (15-minute face check). Recommend attending groups and psychoeducation for building coping skills. Typical short- and long-term side effects of the proposed medication regimen, including contraindications and clinically significant interactions, were discussed with the patient. Side effects include but not limited to sedation, suicide risk with antidepressants, overdose, hypo or hypertension, rash, movement disorders (TD, EPS), overdose, weight gain, and appetite changes. Patient was advised to avoid driving, drinking or operating heavy machinery while taking psychiatric meds. Patient should reach out to medical provider if any of side effects occur. Patient voiced understanding of benefits and agreement with the treatment plan. Targeted symptoms and signs, possible therapeutic benefit, side effect and riskswere discussed. Case management will work on coordinating a safe discharge plan. I have reviewed evaluations by other providers (ER notes, nurses and staff). Documented By: Joseph Tello MD [id number] Signed By: <Electronically signed by Joseph Tello MD> 06/23/23 0903 [facility] [place] Work Phone: [phone]) 556-557103-28-2024 History of Present illness Narrative* Butch Lara Concepcion, DO - 06/03/2023 9:42 PM EDT Patient Name: Jennifer Mendes Date of : 1980 Date of Service: 06/03/2023 Facility: [facility] Type of Visit: Skilled Visit Subjective Jennifer Mendes is a 42 y.o. female seen today at [facility] for acute visit. Jennifer She was recently discharged from therapy. Her participation was improving but she has seemed to reach her max potential. Nursing reports a couple new problems. She has a lot of swelling in her legs. She admitted to shortness of breath the night before and needed a breathing treatment. Shealso has a rash under her breasts which appears to be intertrigo and they request nystatin powder. Allergies: Metronidazole and Ondansetron hcl Code Status: FULL CODE Review of Systems Respiratory: Positive for shortness of breath and wheezing. Skin: Positive for rash. Wt (!) 147.7 kg (325 lb 9.6 oz) BMI 59.55 kg/m Physical Exam Constitutional: Appearance: She is obese. Comments: He was in bed sleeping around noon HENT: Head: Normocephalic. Cardiovascular: Rate and Rhythm: Normal rate and regular rhythm. Pulses: Normal pulses. Heart sounds: Normal heart sounds. No murmur heard. Pulmonary: Effort: Pulmonary effort is normal. No respiratory distress. Breath sounds: Normal breath sounds. No wheezing, rhonchi or rales. Musculoskeletal: Right lower le+ Pitting Edema present. Left lower le+ Pitting Edema present. Neurological: General: No focal deficit present. Mental Status: She is alert, oriented to person, place, and time and easily aroused. Psychiatric: Behavior: Behavior is cooperative. Summary / Assessment / Plan 1. Pedal edema 2. Intertrigo 3. Morbid obesity (CMS-HCC) She has swelling of her lower legs. Certainly can be due to obesity. I doubt major organ failure like liver, kidney or heart. Will check a CMP, UA and BNP. Will treat for intertrigo with nystatin powder twice a day 14 days. Continue other medications as before. May need further workup. ELECTRONICALLY SIGNED BY: Butch Oliva DO documented in this encounterWyandot [facility]03-22-2024 History of Present illness Narrative* Butch Oliva DO - 05/28/2023 11:59 PM EDT Patient Name: Jennifer Mendes Date of : 1980 Date of Service: 05/28/2023 Facility: [facility] Type of Visit: Skilled Visit Subjective Jennifer Mendes is a 42 y.o. female seen today at [facility] for therapy visit. Jennifer is in therapy and her participation has increased the therapist. She has been getting modalities for pain relief with electrical stimulation. Her pain has improved a bit with these modalities from an 8 or 9 on a scale of 1-10 to a 6 on a scale of 1-10. She is using oxycodone with mild improvement. He is also utilizing gabapentin and ibuprofen for pain. She has not having any side effects. She is walking 1-15 feet with a Rollator walker. Unfortunately her insurance is still pending. There are no new problems reported by staff or patient. Allergies: Metronidazole and Ondansetron hcl Code Status: FULL CODE BP 104/68 Pulse 71 Wt (!) 151.7 kg (334 lb 6.4 oz) BMI 61.16 kg/m Physical Exam Vitals reviewed. Constitutional: General: She is not in acute distress. Appearance: She is obese. She is not ill-appearing. HENT: Head: Normocephalic. Cardiovascular: Rate and Rhythm: Normal rate and regular rhythm. Pulses: Normal pulses. Heart sounds: Normal heart sounds. No murmur heard. Pulmonary: Effort: Pulmonary effort is normal. No respiratory distress. Breath sounds: Normal breath sounds. No wheezing, rhonchi or rales. Musculoskeletal: Cervical back: Neck supple. Lymphadenopathy: Cervical: No cervical adenopathy. Neurological: General: No focal deficit present. Mental Status: She is alert. Gait: Gait abnormal (ambulating in a wheelchair). Psychiatric: Attention and Perception: Attention normal. Mood and Affect: Mood and affect normal. Speech: Speech normal. Behavior: Behavior normal. Behavior is cooperative. Thought Content: Thought content normal. Thought content is not paranoid or delusional. Thought content does not include suicidal ideation. Thought content does not include suicidal plan. Cognition and Memory: Cognition normal. Judgment: Judgment normal. Summary / Assessment / Plan 1. Bilateral primary osteoarthritis of hip 2. Muscle weakness (generalized) 3. Other abnormalities of gait and mobility 4. Spinal stenosis of lumbar region, unspecified whether neurogenic claudication present Continue therapy and medication for pain control. She needs to get insurance before we can refer topain management and she is aware of that. Continue other orders as directed. ELECTRONICALLY SIGNED BY: Butch Oliva DO documented in this encounterWyandot [facility]03-12-2024 History of Present illness Narrative* Megan Cash APRN-[employer]RECT [employer] - 05/18/2023 11:59 PM EDT Images from the original note were not included. Patient Name: Jennifer Mendes Date of : 1980 Date of Service: 05/18/2023 Facility: [facility] Type of Visit: Skilled Visit Subjective Jennifer Mendes is a 42 y.o. female seen today at [facility] for Chief Complaint Patient presents with Group Home . Is attending physical therapy. States sometimes it hurts worse, sometimes I feel some improvement . Relates she is frustrated her Medicaid has not been approved yet. She is awaiting to attend pain management and other specialities due to awaiting coverage. Is taking oxycodone for bilateral hip andlumbar back pain. Is permitted to have every 6 hours. RN reports she uses two tablets per day on average. She is socializing more with other residents. Past Medical History: Diagnosis Date Abdominal wall cellulitis Anemia Anxiety Arthritis Back pain B[place] disorder [place] Depression Latent tuberculosis infection Obesity Pneumonia Substance abuse [place] Past Surgical History: Procedure Laterality Date FRACTURE SURGERY HYSTERECTOMY partial TONSILLECTOMY Family History Problem Relation Age of Onset Breast cancer Maternal Aunt Breast cancer Maternal Grandmother Current Outpatient Medications Medication Sig Dispense Refill ARIPiprazole (ABILIFY) 5 mg tablet Take 1 tablet (5 mg total) by mouth in the morning. 30 tablet 0 DULoxetine 40 mg capsule,delayed release(DR/EC) Take 40 mg by mouth in the morning. 30 capsule 0 ibuprofen (MOTRIN) 800 mg tablet Take 1 tablet (800 mg total) by mouth every 8 (eight) hours as needed. melatonin (CIRCADIN) tablet Take 2 tablets (6 mg total) by mouth nightly as needed for sleep. 40 tablet 0 No current facility-administered medications for this visit. Allergies: Metronidazole and Ondansetron hcl Code Status: FULL CODE The following portions of the patient's history were reviewed and updated as appropriate: allergies, current medications, past family history, past medical history, past social history, past surgicalhistory, problem list, and medication reconciliation was completed including current medication andpost discharge medication. Review of Systems Constitutional: Negative for chills and fever. HENT: Negative. Eyes: Negative for visual disturbance. Respiratory: Negative for chest tightness and shortness of breath. Cardiovascular: Negative for chest pain and palpitations. Gastrointestinal: Negative. Endocrine: Negative. Genitourinary: Negative for menstrual problem and pelvic pain. Musculoskeletal: Positive for arthralgias, back pain and myalgias. Bilateral hip pain Skin: Negative. Allergic/Immunologic: Negative. Neurological: Negative for syncope and facial asymmetry. Hematological: Does not bruise/bleed easily. Psychiatric/Behavioral: Negative. Objective BP 104/68 Pulse 71 Temp 36.7 C (98 F) (Oral) Resp 18 Wt (!) 149.7 kg (330 lb) SpO2 98% BMI 60.36 kg/m Physical Exam Vitals and nursing note reviewed. Constitutional: General: She is not in acute distress. Appearance: She is well-developed. She is not diaphoretic. HENT: Head: Normocephalic and atraumatic. Right Ear: Tympanic membrane and external ear normal. Left Ear: Tympanic membrane and external ear normal. Nose: Nose normal. Mouth/Throat: Mouth: Mucous membranes are moist. Pharynx: No oropharyngeal exudate. Eyes: General: Right eye: No discharge. Left eye: No discharge. Conjunctiva/sclera: Conjunctivae normal. Pupils: Pupils are equal, round, and reactive to light. Neck: Thyroid: No thyromegaly. Vascular: No JVD. Cardiovascular: Rate and Rhythm: Normal rate and regular rhythm. Heart sounds: Normal heart sounds. No murmur heard. No friction rub. No gallop. Pulmonary: Effort: Pulmonary effort is normal. Breath sounds: Normal breath sounds. Abdominal: General: Bowel sounds are normal. There is no distension. Palpations: Abdomen is soft. There is no mass. Tenderness: There is no abdominal tenderness. Musculoskeletal: General: Tenderness present. Cervical back: Normal range of motion and neck supple. Lumbar back: Tenderness and bony tenderness present. Decreased range of motion. Back: Right hip: Bony tenderness present. Decreased range of motion. Decreased strength. Left hip: Bony tenderness present. Decreased range of motion. Decreased strength. Lymphadenopathy: Cervical: No cervical adenopathy. Skin: General: Skin is warm and dry. Capillary Refill: Capillary refill takes less than 2 seconds. Neurological: Mental Status: She is alert and oriented to person, place, and time. Deep Tendon Reflexes: Reflexes are normal and symmetric. Psychiatric: Mood and Affect: Mood normal. Behavior: Behavior normal. Thought Content: Thought content normal. Judgment: Judgment normal. Assessment/Plan Summary / Assessment / Plan 1. Spinal stenosis of lumbar region, unspecified whether neurogenic claudication present 2. Bipolar affective disorder, current episode mixed, current episode severity unspecified ([facility]) 3. Primary osteoarthritis of both hips 4. Schizophrenic disorder ([facility]) 5. Class 3 severe obesity due to excess calories with serious comorbidity and body mass index (BMI)of 60.0 to 69.9 in adult ([facility]) 6. Full code status Spinal stenosis of lumbar region Awaiting Medicaid approval to pursue pain management. Referral done, sent to [facility]. -Pain controlled with Oxycodone, gabapentin, NSAIDS -Attending PT as ordered. Relates pain is better on some days, others not so much. 2. Bipolar affective disorder Mixed, current episode Mood and behaviors have stabilized. 3. Muscle weakness Other abnormalities of gait and mobility Secondary to spinal stenosis , osteoarthritis both hips See #1 4. Schizophrenia disorder Moods and behaviors have stabilized with medication. Has been socializing more with other residents. 5. Morbid obesity Body mass index is 60.36 kg/m . Patient noted to have elevated BMI and the following intervention(s) were applied: Discussed current weight today. Consider healthy food choices, portion control. Avoid sugary beverages and high concentrated sweets. Routine exercise regimen encouraged. 6. Full Code status The OARRS/MAPPS database was reviewed today and found to be appropriate. No indication of medication diversion, or non compliance. No orders of the defined types were placed in this encounter. Total time spent was 25 minutes: Preparing to see the patient (e.g., review of tests) Obtaining and/or reviewing separately obtained history Performing a medically appropriate examination and/or evaluation Counseling and educating the patient/family/caregiver Ordering medications, tests, or procedures There are no Patient Instructions on file for this visit. ELECTRONICALLY SIGNED BY: BEST Napoles APRN-CNP 05/24/23 1753 documented in this encounterWyandot [facility]03-08-2024 History of Present illness Narrative* Butch Oliva, - 05/14/2023 6:37 PM EST Patient Name: Jennifer Mendes Date of : 1980 Date of Service: 05/14/2023 Facility: [facility] Type of Visit: Skilled Visit Subjective Jennifer Mendes is a 42 y.o. female seen today at [facility] visit. Jennifer is in therapy. It is helping some. She is still in a lot of pain which affects her participation. Her medicaid is pending so referral to pain management is on hold. She is using oxycodone with some benefit. She is not having any side effects. She doesn't have any new problems. Allergies: Metronidazole and Ondansetron hcl Code Status: FULL CODE BP 110/68 Pulse 90 Temp 36.4 C (97.6 F) Resp 18 Wt (!) 142.6 kg (314 lb 6.4 oz) SpO2 98% BMI 57.50 kg/m Physical Exam Vitals reviewed. Constitutional: General: She is not in acute distress. Appearance: She is obese. She is not ill-appearing. HENT: Head: Normocephalic. Cardiovascular: Rate and Rhythm: Normal rate and regular rhythm. Pulses: Normal pulses. Heart sounds: Normal heart sounds. No murmur heard. Pulmonary: Effort: Pulmonary effort is normal. No respiratory distress. Breath sounds: Normal breath sounds. No wheezing, rhonchi or rales. Musculoskeletal: Cervical back: Neck supple. Lymphadenopathy: Cervical: No cervical adenopathy. Skin: Findings: Lesion (reddish macule where she had TB test but no induration) present. Neurological: General: No focal deficit present. Mental Status: She is alert. Gait: Gait abnormal (ambulating in a wheelchair). Psychiatric: Attention and Perception: Attention normal. Mood and Affect: Mood and affect normal. Speech: Speech normal. Behavior: Behavior normal. Behavior is cooperative. Thought Content: Thought content normal. Thought content is not paranoid or delusional. Thought content does not include suicidal ideation. Thought content does not include suicidal plan. Cognition and Memory: Cognition normal. Judgment: Judgment normal. Summary / Assessment / Plan 1. Spinal stenosis of lumbar region, unspecified whether neurogenic claudication present 2. Bilateral primary osteoarthritis of hip 3. Muscle weakness (generalized) 4. Other abnormalities of gait and mobility 5. Bipolar affective disorder, current episode mixed, current episode severity unspecified (CMS-HCC) 6. Schizophrenic disorder (CMS-HCC) Medically stable. Continue therapy to reach MMI. Await approval for medicaid so she can go to pain management. Other medications reviewed and are medically necessary. ELECTRONICALLY SIGNED BY: Butch Oliva DO documented in this encounterWyandot [facility]02-23-2024 History of Present illness Narrative* Butch Tongkwasishimon - 04/30/2023 5:37 PM EST Patient Name: Jennifer Mendes Date of : 1980 Date of Service: 04/30/2023 Facility: [facility] Type of Visit: Admission H&P Subjective Jennifer Mendes is a 42 y.o. female seen today at [facility] for admission H&P. jennifer presents to [facility] from the [facility] where she was treated for intractable back pain, in ability to ambulate and a mental health crisis. They tried to place her in an inpatient psychiatric facility but since she could not ambulate they were unable to place her. Over thecourse of her stay there she became no longer suicidal. She denies suicidal ideation presently. She has a history of bipolar disorder, depression and anxiety. She says she has severe back pain and that is what gets her depressed and now her main goal to get better. She would like pain controlled. No she is usin cassette, ibuprofen and gabapentin for pain. She would like to go see pain management. She said she was scheduled to see a neurosurgeon up in [place] but then her insurance lapsed and the appointment was canceled. She has back pain which radiates down the legs. She has no bowel or bladder symptoms. She also has arthritis of both hips. She uses a wheelchair to ambulate. She also syphilis. She was treated with penicillin G but then she was retested and found still haveit. She is currently on it 28 day course of doxycycline 100 mg twice a day Past Medical History: Diagnosis Date Abdominal wall cellulitis Anemia Anxiety Bipolar disorder ([facility]) Depression Latent tuberculosis infection Pneumonia Past Surgical History: Procedure Laterality Date FRACTURE SURGERY HYSTERECTOMY partial TONSILLECTOMY Allergies: Flagyl [metronidazole] Code Status: FULL CODE The following portions of the patient's history were reviewed and updated as appropriate: allergies, current medications, past family history, past medical history, past social history, past surgicalhistory, problem list, and medication reconciliation was completed including current medication andpost discharge medication. Review of Systems Constitutional: Negative. HENT: Negative. Eyes: Negative. Respiratory: Negative. Cardiovascular: Negative. Endocrine: Negative. Genitourinary: Negative. Musculoskeletal: Positive for arthralgias and back pain. Allergic/Immunologic: Negative. Neurological: Negative. Hematological: Negative. Psychiatric/Behavioral: Positive for dysphoric mood. The patient is nervous/anxious. BP 99/62 Pulse 106 Temp 36.6 C (97.8 F) Resp 20 Ht 157.5 cm (5' 2 ) Wt (!) 140.2 kg (309 lb 1.4 oz) SpO2 91% BMI 56.53 kg/m Physical Exam Vitals reviewed. Constitutional: General: She is not in acute distress. Appearance: She is obese. She is not ill-appearing. HENT: Head: Normocephalic. Cardiovascular: Rate and Rhythm: Normal rate and regular rhythm. Pulses: Normal pulses. Heart sounds: Normal heart sounds. No murmur heard. Pulmonary: Effort: Pulmonary effort is normal. No respiratory distress. Breath sounds: Normal breath sounds. No wheezing, rhonchi or rales. Abdominal: General: Bowel sounds are normal. Palpations: Abdomen is soft. Tenderness: There is no abdominal tenderness. Musculoskeletal: Cervical back: Neck supple. Lymphadenopathy: Cervical: No cervical adenopathy. Skin: General: Skin is warm and dry. Findings: No lesion or rash. Neurological: General: No focal deficit present. Mental Status: She is alert. Gait: Gait abnormal (ambulating in a wheelchair). Psychiatric: Attention and Perception: Attention normal. Mood and Affect: Mood and affect normal. Speech: Speech normal. Behavior: Behavior normal. Behavior is cooperative. Thought Content: Thought content normal. Thought content is not paranoid or delusional. Thought content does not include suicidal ideation. Thought content does not include suicidal plan. Cognition and Memory: Cognition normal. Judgment: Judgment normal. Assessment/Plan Summary / Assessment / Plan 1. Spinal stenosis of lumbar region, unspecified whether neurogenic claudication present 2. Syphilis (acquired) 3. Bipolar affective disorder, current episode mixed, current episode severity unspecified [place] 4. Anxiety 5. Primary osteoarthritis of both hips 6. TB lung, latent 7. Schizophrenic disorder ([facility] 8. Class 3 severe obesity due to excess calories without serious comorbidity with body mass index (BMI) of 50.0 to 59.9 in adult (CMS-HCC) Admit to [facility] for therapy. She is motivated to improve. She will need pain management and maybe neurosurgery. Fair to good rehab potential. Full code. Continue medications from the hospital. She was treated for TB with [facility] per pt. Continue doxycycline for syphilis. ELECTRONICALLY SIGNED BY: Butch Oliva DO [facility]23 NoteCONSULTATION CONSULTATION DATE: 06/16/2022 TO: TRENTON Johnston CHIEF COMPLAINT: Includes severe left hip pain. HISTORY OF PRESENT ILLNESS: Review of systems, past medical/surgical history were obtained and documented on the health questionnaire and is available upon request. She is a 41-year-old female who reports having pain in this area for at least the last two years. Over the last one year, it accelerated to the point where it has altered her quality of life, level of functioning and her sleep pattern. She denies any change in bowel and bladder habits or new sensorimotor changes in the lower extremities, and she reports the pain seems to increase with activities such as standing, walking and performing transitioning maneuvers. She feels most comfortable in the semi-recumbent position. EXAM: Notable for patient having no clinical radiculopathy or myelopathy involving the lower extremities. She does ambulate with the help of a wheeled walker, and she had difficulty standing from a sitting position. She had nothing to suggest radiculopathy or myelopathy involving the lower extremities. She had an exquisitely positive modified left sided FABERs sign with pain occurring in her groin area, as well as her left lateral hip area. She had nothing to suggest facet joint loading pain clinically or SI joint dysfunction on today's visit. She did have a fair amount of muscle spasm involving the lumbar paravertebral muscles occurring bilaterally. IMPRESSION: Patient appears to have chronic pain secondary to severe osteoarthrosis of her hip, most predominant on the left side, with associated myofascial spasm. RECOMMENDATIONS: I have recommended aquatic therapy. I have placed her on baclofen 10 mg pills, half a pill to one pill t.i.d. I did discuss the possibility of surgical correction for her left hip pain. Patient reports that she would like to avoid the same for the time being. Will proceed with a left hip joint injection under fluoroscopic guidance. Gone over the details of the procedure with the patient. All her questions were answered. She agrees to proceed with the outlined plan. As part of providing excellent, safe, comprehensive care, the following was completed at our patient's visit: 1. A medication reconciliation and review to ensure accurate knowledge of current/active medications, including asking our patients to inform us about any [id number] medications or herbal remedies/nutritional supplements/alternative remedies. 2. A review to specifically ensure our patients have had annual screening for: elevated body mass index (BMI, see intake chart for exact total), tobacco use, screening for depression, and screening for unhealthy alcohol use. When screening is concerning, patients are provided with education and the specific recommendation to discuss the concerning health issue and treatment options with their primary care provider.[facility] [phone] NotePROCEDURE: XR HIP LT 2 3V W PELVIS HISTORY: Pain ; left hip pain after falling COMPARISON: None. FINDINGS: BONES:Complete loss of the hip joint spaces bilaterally with subchondral sclerosis, [id number]-[id number] articulation, and remodeling of the femoral heads and acetabulum. SOFT TISSUES:No visible soft tissue swelling. EFFUSION:None visible. OTHER: Negative. IMPRESSION: 1. No acute bone abnormality. 2. Advanced degenerative changes of hip joints bilaterally. Electronically authenticated by: JEAN CARLOS MEDINA Date: 2022-05-21 11:47[facility]* Diagnosis Spinal stenosis of lumbar region, unspecified whether neurogenic claudication present- Primary Syphilis (acquired) Unspecified syphilis Bipolar affective disorder, current episode mixed, current episode severity unspecified [place] Anxiety Anxiety state, unspecified Primary osteoarthritis of both hips TB lung, latent Schizophrenic disorder ([facility] Unspecified schizophrenia, unspecified condition Class 3 severe obesity due to excess calories without serious comorbidity with body mass index (BMI) of 50.0 to 59.9 in adult ([facility] documented in this encounter [facility]* Diagnosis Spinal stenosis of lumbar region, unspecified whether neurogenic claudication present- Primary Bilateral primary osteoarthritis of hip Muscle weakness (generalized) Other abnormalities of gait and mobility Bipolar affective disorder, current episode mixed, current episode severity unspecified ([facility]) Schizophrenic disorder ([facility] Unspecified schizophrenia, unspecified condition [facility] Diagnosis Spinal stenosis of lumbar region, unspecified whether neurogenic claudication present- Primary Bipolar affective disorder, current episode mixed, current episode severity unspecified ([facility] Primary osteoarthritis of both hips Schizophrenic disorder ([facility]) Unspecified schizophrenia, unspecified condition Class 3 severe obesity due to excess calories with serious comorbidity and body mass index (BMI) of 60.0 to 69.9 in adult ([facility]) Full code status documented [facility] encounter [facility]* Diagnosis Bilateral primary osteoarthritis of hip- Primary Muscle weakness (generalized) Other abnormalities of gait and mobility Spinal stenosis of lumbar region, unspecified whether neurogenic claudication present [facility] Diagnosis Pedal edema- Primary Edema Intertrigo Other specified erythematous condition Morbid obesity ([facility]) Morbid obesity documented [facility] this encounter [facility]* Diagnosis Onset Date Resolution Status Chronic pain acute Generalized anxiety disorder acute Major depressive disorder, recurrent, moderate acute [facility] [place] Work Phone: InstructionsNot on filedocumented in this encounter [facility] SystemInstructions* Attachments The following attachments cannot be sent through Care Everywhere. * Bipolar disorder (Lebanese) documented in this encounterPro[facility] SystemInstructionsNot on file documented in this encounterProParkview [facility] SystemInstructionsNot on file [facility] Summary Purpose Family History No Family History Records FoundNo Family History Records FoundNo Family History Records FoundNo Family History Records Found Advance Directives No Advanced Directives Records FoundLatest Code Status on File Code Status Date Activated Date Inactivated Comments Full Code 01/24/2023 10:50 AM 02/05/2023 6:22 PM Advance Directive Response Recorded Date/ Time Advance Directives No June 06 9:38am Chief Complaint and Reason for Visit Chief Complaint bh Schizoaffective disorder Schizoaffective disorder Reason for Visit Chronic pain Generalized anxiety disorder Major depressive disorder, recurrent, moderate Additional Source Comments INFORMATION SOURCE (unrecogn ized section and content) DATE CREATED AUTHOR 07/08/2022 [facility] DATE CREATED AUTHOR AUTHOR'S ORGANIZ ATION 07/09/2023 [facility] DATE CREATED AUTHOR AUTHOR'S ORGANIZ ATION 07/31/2023 [facility] EPIC DATE CREATED AUTHOR AUTHOR'S ORGANIZ ATION 08/14/2023 [facility] Care Teams (unrecognized sec tion and content) Spinner Continuous Relationship Specialty Start Date End Date No Pcp, [place] [address] PCP - General Family Medicine 10/30/22 Spinner Continuous Relationship Specialty Start Date End Date No Pcp, [place] [address] PCP - General Family Medicine 10/30/22 Spinner Continuous Relationship Specialty Start Date End Date No Pcp, [place] [address] PCP - General Family Medicine 10/30/22 Spinner Continuous Relationship Specialty Start Date End Date No Pcp, [place] [address] PCP - General Family Medicine 10/30/22 Spinner Continuous Relationship Specialty Start Date End Date No Pcp, [place] [address] PCP - General Family Medicine 10/30/22 Team Status: Active Member Role Status Dates NON STAFF Primary Care Provider Active Team Status: Active Member Role Status Dates NON STAFF Primary Care Provider Active Start: April 26, 2023 Joseph Tello MD Attending Provider Active Start: April 26, 2023 Team Status: Inactive Member Role Status Dates NON STAFF Primary Care Provider Active Start: June 22, 2023 End: June 25, 2023 Joseph Tello MD Admit Provide r, Attending Provider Active Start: June 22, 2023 End: June 25, 2023 Amy Schwartz RN Other Provider Active Star t: June 22, 2023 End: June 25, 2023 Lorena Conway , ANA MARIA Other Provider Active Start : June 22, 2023 End: June 25, 2023 Angelica Cheney , ANA MARIA Other Provider Active Start: A pril 2023 End: June 25, 2023 Tawanna Conley , ANA MARIA Other Provider Active Star t: June 22, 2023 End: June 25, 2023 Ree Clemente RN Other Provider Active Start: A pril 2023 End: June 25, 2023 Mary Quach RN Other Provider Active Start: Ap ril 2023 End: June 25, 2023 Fercho Granados MD Other Provider Active Start: June 22, 2023 End: June 25, 2023 Elsa Webb DO Other Provider Active Start : June 22, 2023 End: June 25, 2023 Amador Swain MD Other Provider Active Start : June 22, 2023 End: June 25, 2023 Vitaly Lees DO Other Provider Active Start: June 22, 2023 End: June 25, 2023 Carrillo Escamilla MD Other Provider Active Start: June 22, 2023 End: June 25, 2023 Ara Carlin MD Other Provider Active Start : June 22, 2023 End: June 25, 2023 Benjy Houser MD Other Provider Active Start: A pril 2023 End: June 25, 2023 Shanda Mata APRN Other Provider Active Start: June 22, 2023 End: June 25, 2023 Linsey Pradhan MD Other Provider Active Start: June 22, 2023 End: June 25, 2023 Antoine Perez MD Other Provider Active Start: A pril 2023 End: June 25, 2023 Elin Root MD Other Provider Active Start: June 22, 2023 End: June 25, 2023 Miguel Juarez MD Other Provider Active Start: June 22, 2023 End: June 25, 2023 Modesto Ibarra DO Other Provider Active Start: June 22, 2023 End: June 25, 2023 Kell Jara MD Other Provider Active Start: Ap ril 2023 End: June 25, 2023 Haris Sneed MD Other Provider Active Start: Apr il 2023 End: June 25, 2023 MIR Valentin Other Provider Active St art: June 22, 2023 End: June 25, 2023 Mark Leavitt APRN Other Provider Active Star t: June 22, 2023 End: June 25, 2023 Almas Rayo MD Other Provider Active Start: June 22, 2023 End: June 25, 2023 Adonis Do MD Other Provider Active Start: Ap ril 2023 End: June 25, 2023 Sedrick Ramirez MD Other Provider Active Start: Jun End: June 25, 2023 Amber Jones MD Other Provider Active Star t: June 22, 2023 End: June 25, 2023 Trey Rothman MD Other Provider Active Start: A pril 2023 End: June 25, 2023 Allison Marin , Other Provider Active Start: Ap [facility] 2023 End: June 25, 2023 Inocencio Andino , Other Provider Active Start : June 22, 2023 End: June 25, 2023 Anita Vann APRN Other Provider Active Start: June 22, 2023 End: June 25, 2023 Vick Dorsey , Other Provider Active Start: June 22, 2023 End: June 25, 2023 Chapin Bell MD Other Provider Active Sta rt: June 22, 2023 End: June 25, 2023 Becky Fuentes APRN Other Provider Active Start : June 22, 2023 End: June 25, 2023 Autumn Chisholm APRN Other Provider Active St art: June 22, 2023 End: June 25, 2023 Taras Dunbar MD Other Provider Active Start: A pril 2023 End: June 25, 2023 Rickie Lobo MD Other Provider Active S tart: June 22, 2023 End: June 25, 2023 Jluis Harrell , DO Other Provider Active Star t: June 22, 2023 End: June 25, 2023 Ramez Mock DO Other Provider Active Start: June 22, 2023 End: June 25, 2023 Rubén Ramirez MD Other Provider Active Start: June 22, 2023 End: June 25, 2023 Candice Blackwood RN Other Provider Active Start: A pril 2023 End: June 25, 2023 Wilda Vazquez NP Other Provider Active Start: Jun End: June 25, 2023 Van Moore MD Other Provider Active Start: June 22, 2023 End: June 25, 2023 Hugo Randolph MD Other Provider Active Start: June 22, 2023 End: June 25, 2023 Team Status: Active Member Role Status Dates NON STAFF Primary Care Provider Active Start: June 23, 2023 Joseph Tello MD Admit Provide r, Attending Provider, Other Provider Active Start: June 23, 2023 Reason for Visit (unrecogniz ed section and content) Reason Comments [facility] FOR RECORDS PERTAINING TO PATIENTS WHO ARE OR HAVE BEEN ENROLLED IN A CHEMICAL DEPENDENCY/SUBSTANCEABUSE PROGRAM, SOME INFORMATION MAY BE OMITTED. This clinical summary was aggregated from multiple sources. Caution should be exercised in using it in the provision of clinical care. This summary normalizes information from multiple sources, and as a consequence, information in this document may materially change the coding, format and clinical context of patient data. In addition, data may be omitted in some cases. CLINICAL DECISIONS SHOULD BE BASED ON THE PRIMARY CLINICAL RECORDS. [facility] [employer] [facility]. provides no warranty or guarantee of the accuracy or completeness of information in this document.
[2023-09-02 19:11] LABS: Age Gdln ACOG Testing Note (.); HPV Aptima Negative (Negative); IGP, Aptima HPV, rfx 16/18,45 Note (.)
== END 2023-08-30 21:06 | disposition home or self-care (01) ==
LOC: LAB 21:05
PROVIDERS: PCP Family Medicine; Visit Provider Obstetrics & Gynecology
DX: Z01.419 Encounter for gynecological examination (general) (routine) without abnormal findings (principal)
CPT/HCPCS: 87624; 88175

== ENCOUNTER 2023-09-08 10:07 | Outpatient (OUT) | payer MEDICAID, SELFPAY ==
--- NOTE | 2023-09-08 10:12 | MM_ITS ---
Patient Name: DALLAS GARRISON MR#: [id number] : 1980 Exam Date: 09/08/2023 Ordering Doctor: DR Mazin Moreno . RADIOLOGY REPORT PROCEDURE: MM TOMOSYNTHESIS SCREENING BI COMPARISON: MG MAMM SCREEN 3D JORGE LUIS CAD, 05/28/2022. INDICATIONS: Screening Calculator Name NCI Breast Cancer Risk Assessment Tool 5 Year Breast Cancer Risk 0.90% Lifetime Breast Cancer Risk 11.70% Personal Breast Cancer No Personal Ovarian Cancer No Treatments None Family Cancers Aunt-maternal with breast cancer at age 60; Grandmother-maternal with breast cancer at age 65. LOCATION: [facility] BREAST COMPOSITION: The breasts are almost entirely fatty. FINDINGS: DIAGNOSTIC CATEGORY 1--NEGATIVE. RIGHT BREAST: No significant suspicious finding. No significant change has occurred. LEFT BREAST: No significant suspicious finding. No significant change has occurred. RECOMMENDATIONS: ROUTINE MAMMOGRAM AND CLINICAL EVALUATION IN 12 MONTHS. PLEASE NOTE: A NORMAL MAMMOGRAM DOES NOT EXCLUDE THE POSSIBILITY OF BREAST CANCER. A CLINICALLY SUSPICIOUS PALPABLE LUMP SHOULD BE BIOPSIED. Dictated by: Fredi Lugo M.D. on 09/08/2023 at 15:11 Approved by: Fredi Lugo M.D. on 09/08/2023 at 15:17
--- NOTE | 2023-09-08 10:12 | US_ITS ---
The [address] [address] Patient Name: DALLAS GARRISON MRN: [id number] date: 1980 Sex: F Assigned Patient Location: [place] Current Patient Location: Accession/Order Number: [id number] Exam Date: 09/08/2023 10:18 Report Date: 09/09/2023 06:07 At the request of: EMILY BECKER Procedure: US pelvis EXAMINATION: US pelvis HISTORY: Menorrhagia COMPARISON: CT pelvis 04/26/2023 TECHNIQUE: Transabdominal and/or transvaginal sonographic examination was performed as indicated by examination type. FINDINGS: UTERUS: Normal size and appearance. Uterus size: 8.5 x 5.1 x 4.0 cm ENDOMETRIUM: Normal homogeneous appearance. Endometrial thickness: 2 mm RIGHT OVARY: Oophorectomy. LEFT OVARY: Normal size and appearance. Blood flow present within ovary on color Doppler. Ovary size: 3.1 x 2.5 x 1.4 cm CUL-DE-SAC: Unremarkable. No significant free fluid. BLADDER: Unremarkable. OTHER: None. US/US pelvis IMPRESSION: 1. No abnormal or suspicious findings to account for patient's symptoms. 2. History states right oophorectomy and there were no abnormal findings within the right adnexa on today's study. Note is made of 2 adjacent cystic structures within the right adnexa on the prior CT study. If oophorectomy has been performed since the CT then no additional follow-up is recommended. If performed prior to the CT then additional evaluation is needed to clarify the right pelvic structures. Electronically authenticated by: JEAN CARLOS MEDINA Date: 09/09/2023 06:07
--- OUTSIDE RECORDS SUMMARY | 2023-09-08 10:29 | XMS_ITS | CCD ---
Author Organization [facility] Care Team Providers Care Power Press Tender Name Role Phone SHAMMO, DEMETRIA Primary Care [...] vailable LAKSHMIPATHY ., NARENDRANATH Admitting Victorina vailable ROSITA ., DR DIAZ [...] Unavailable ROSITA ., DR DIAZ Admitting Unavailable ROISTA ., DR DIAZ Attending Unavailable SHAMDEMETRIA FINCH Primary Care Unavailable No Pcp, No Pcp [...] Sneed Other Provider MIR Toribio Other Provider Born, SHADE MATCHERGloria Diaz Other Provider Unavailable MD Almas Rayo Other Provider MD Adonis Do Other Provider MD Sedrick Ramirez Other Provider MD Amber Jones Other Provider Unavailable MD Trey Rothman Other Provider DO Allison Marin Other Provider DO Inocencio Andino Other Provider CECY Vann Other Provider DO Vick Dorsey Other Provider MD Chapin Bell Other Provider [phone] CECY Fuentes Other Provider CECY Chisholm Other Provider MD Taras Dunbar Other Provider MD Rickie Lobo Other Provider DO Jluis Harrell T Other Provider DO Ramez Mock Other Provider MD Rubén Ramirez P Other Provider ANA MARIA Blackwood Other Provider Unavailable KETTY Vazquez Other Provider MD Van Moore Other Provider MD Hugo Randolph Other Provider BUTCH OLIVA Primary Care Unavailable JESSICA BRADFORD Attending Unavailable CHEL RAMSEY Attending Unavailable BUTCH OLIVA Referring Unavailable BUTCH OLIVA Primary Care Unavailable TRAV VALDOVINOS Attending Unavailable TRAV VALDOVINOS Referring Unavailable TRAV VALDOVINOS Attending Unavailable EMILY BECKER Attending Unavailable Unavailable Primary Care Provider Unavailabl e NON STAFF Primary Care Unavailable Joseph Tello Admitting Unavailab Joseph Cavanaugh Attending Unavailab Amy Cisse Consulting Unavailable Lorena Conway Consulting Unavailable Angelica [...] Vann Consulting Unavailable Vick Dorsey Consulting Unavailable AryanomaChapin whittaker Consulting Unavailable Becky Fuentes Consulting Unavailable Autumn Chisholm Consulting Unavailable Alahmad Alabeatris Consulting Unavailable Rickie Lobo Consulting Unavailable Jluis Harrell Consulting Unavailable Ramez Mock Consulting Unavailable Rubén Ramirez Consulting Unavailable Candice Blackwood Consulting Unavailable Wilda Vazquez Consulting Unavailable Van Moore Consulting Unavailable Hugo Randolph Consulting Unavailable NON STAFF Primary Care Unavailable Joseph Tello Admitting Unavailab Joseph Cavanaugh Attending Unavailab TANG Morales Attending Unavailable TANG SLOAN Referring Unavailable Allergies Allergy Classification Reported Allergen(s) Allergy Type Date of Onset Reaction(s) Facility Nitroimidazoles (antibiotic) (1 source) metroNIDAZOLE Drug Allergy 8 [facility] Ondansetron (1 source) Ondansetron Drug Allergy 1 [facility] (1 source) metroNIDAZOLE Drug Allergy 3 [facility] Repository (7 sources) metroNIDAZOLE; Translations: [METRONIDAZOLE] Drug Allergy 8 Nausea, [facility] (8 sources) Ondansetron; Translations: [ONDANSETRON HCL] Drug Allergy 1 [facility] (2 sources) metroNIDAZOLE; Translations: [METRONIDAZOLE HCL] Drug Allergy 8 [facility] (1 source) metroNIDAZOLE Drug Allergy 4 [facility] Repository Medications Current Medications Medication Drug Class(es) Dates Sig (Normalized) Sig (Original) acetaminophen 300 mg / codeine phosphate 30 mg oral tablet (2 sources) Opioid Agonist Start: 07-14-2010 take 1 tablet by mouth once as needed for pain acetaminophen-code ine 300-30 mg ORAL per tablet Take 1 tablet by mouth as needed (for pain on dressing change.). 30 tablet 0 07/14/2010 Active acetaminophen 325 mg / oxyCODONE hydrochloride 5 [...] Start: 02-06-2023 take 1 tablet by guillermina th in the morning ARIPiprazole (ABILIFY) 5 mg tablet Take 1 tablet (5 mg total) by mouth in the morning. 30 tablet 0 02/06/2023 Active clonazePAM 1 mg oral tablet (1 source) Benzodiazepine Start: 06-22-2023 take 1 mg by mouth three times daily Clonazepam Active 1 MG PO Three times daily June 22, 2023 12:00am diphenhydrAMINE hydrochloride 25 mg oral capsule (2 sources) Histamine-1 Receptor Antagonist Start: 07-14-2010 take 1 capsule by mouth every six hours as needed diphenhydrAMINE 25 mg ORAL capsule Take 1 capsule by mouth every 6 hours as needed for Itching/Rash. 28 capsule 0 07/14/2010 Active docusate sodium 100 mg oral capsule (2 sources) Start: 07-14-2010 take 1 capsule by mouth every twelve hours as needed docusate sodium 100 mg ORAL capsule Take 1 capsule by mouth twice daily as needed for Constipation. 30 capsule 0 07/14/2010 Active DULoxetine 60 mg delayed release oral capsule (6 sources) Serotonin and Norepinephrine Reuptake Inhibitor Start: 06-22-2023 take 60 mg by mouth twice daily Duloxetine Active 60 MG PO Twice daily June 22, 2023 12:00am Start: 02-06-2023 take [address] [facility] in the morning DULoxetine 40 mg capsule,delayed [...] 12:00am Start: 02-28-2023 [facility] hours as needed ibuprofen (MOTRIN) 800 mg tablet Take 1 tablet (800 mg total) by mouth every 8 (eight) hours as needed. 0 02/28/2023 Active linezolid 600 mg oral tablet (2 sources) Oxazolidinone Antibacterial Start: 07-11-2010 take 1 tablet by mouth every twelve hours linezolid 600 mg ORAL tablet Take 1 tablet by mouth every 12 hours. 14 tablet 0 07/11/2010 Active melatonin 3 mg oral tablet (5 sources) [...] bedtime 15 15 June 25, 2023 12:00am Completed/Discontinued Medications Medication Drug Class(es) Dates Sig (Normalized) Sig (Original) 10 ml lidocaine hydrochloride 10 mg/ml injection (3 sources) Antiarrhythmic, Amide Local Anesthetic Start: 09-03-2023 End: 09-03-2023 lidocaine (PF) 10 mg/mL (1 %) 8 mL injection (XYLOCAINE) Start: 06-22-2023 apply 1 dose topically once da rosa Lidocaine Active 1 PATCH TOPICAL Daily June 22, 2023 12:00am 1 ml triamcinolone acetonide 40 mg/ml injection (2 sources) Corticosteroid Start: 09-03-2023 End: 09-03-2023 triamcinolone acetonide 80 mg injection (KeNALog 40) Problems Active Problems Problem Classification Problem Date [...] mixed, unspecified] Onset: 04-30-2023 04-30-2023 Chronic Osteoarthritis (20 sources) Unilateral primary osteoarthritis, left hip; Translations: [Bilateral primary osteoarthritis of hip] Onset: 05-27-2022 Chronic Other connective tissue disease (1 source) Other muscle spasm; Translations: [OTHER MUSCLE SPASM] Onset: 06-24-2022 Episodic Other connective tissue disease (6 sources) Muscle weakness; Translations: [Muscle weakness (generalized)] Onset: 05-14-2023 05-14-2023 Episodic Other connective tissue disease (2 sources) Trochanteric bursitis of left hip; Translations: [Trochanteric bursitis, left hip] Onset: 09-03-2023 09-03-2023 Episodic Other connective tissue disease (1 source) Bilateral trochanteric bursitis; Translations: [Trochanteric bursitis, right hip] 09-03-2023 Episodic Other female genital disorders (1 source) [...] 05-14-2023 05-14-2023 Episodic Other non-traumatic joint disorders (5 sources) Pain in left hip; Translations: [PAIN IN LEFT HIP] Onset: 05-21-2022 Episodic Other non-traumatic joint disorders (1 source) Pain in right hip; Translations: [Pain in right hip] Onset: 09-03-2023 Episodic Other non-traumatic joint disorders (1 source) Hip pain; Translations: [Pain in left hip] 09-03-2023 Episodic Other non-traumatic joint disorders (1 source) Pain in right hip joint; Translations: [Pain in right hip] 08-30-2023 Episodic Other nutritional; endocrine; and metabolic disorders [...] Chronic Other nutritional; endocrine; and metabolic disorders (8 sources) Obesity; Translations: [Obesity, unspecified] Onset: 05-17-2007 Resolved: 07-07-2010 04-30-2023 Chronic Other nutritional; endocrine; and [...] Translations: [Syphilis, unspecified] Onset: 04-30-2023 04-30-2023 Episodic Unclassified (1 source) EMS Onset: 06-22-2023 Past or Other Problems Problem Classification Problem Date Documented Date Episodic/Chronic Disorders of teeth and jaw (2 sources) Jaw pain; Translations: [Jaw pain] Onset: 07-07-2010 Episodic Ectopic (5 sources) Ectopic ; Translations: [Unspecified ectopic without intrauterine ] Onset: 05-11-2012 04-30-2023 Episodic Other connective tissue disease (2 sources) Pain in limb; Translations: [Pain in unspecified limb] Onset: 05-17-2007 Resolved: 07-07-2010 07-07-2010 Episodic Pneumonia (except that caused by tuberculosis or sexually transmitted disease) (5 sources) Pneumonia; Translations: [Pneumonia, unspecified organism] Onset: 01-24-2023 01-24-2023 Episodic Skin and subcutaneous tissue infections (7 sources) Cellulitis and abscess of trunk; Translations: [Cellulitis of trunk, unspecified] Onset: 07-07-2010 04-30-2023 Episodic Spondylosis; intervertebral disc disorders; other back problems (4 sources) Degeneration of lumbosacral intervertebral disc; Translations: [Other intervertebral disc degeneration, lumbosacral region] Onset: 05-17-2007 Resolved: 07-07-2010 07-07-2010 Chronic Spondylosis; intervertebral disc disorders; other back problems (13 sources) Spinal stenosis of lumbar region; Translations: [Spinal stenosis, lumbar region without neurogenic claudication] Onset: 05-17-2007 Resolved: 07-07-2010 04-30-2023 Episodic Results Test Name Value Interpretation Reference Range Facility Large Joint Arthro/Inj: R gr eater trochanteric bursaon 09-03-2023 Tang Sloan PA-C 09/07/2023 4:29 PM Large Joint Arthro/Inj: R greater trochanteric bursa Informed Consent Consent Obtained: Verbal [place] Protocol A moment to CARE was completed. SIGN IN Personnel directly involved with the procedure wore the appropriate PPE. Special Equipment: N/A Patient/Surrogate Stated/Verified: Patient name, Date of , Relevant allergies and Intended procedure TIME OUT Intended patient and procedure match the source document(s). Consent documented and matches the intended procedure. Relevant labs, photos, and/or imaging studies have been reviewed. Correct side/site marked and visible. Medications required for procedure verified. No fire risk assessment and interventions applicable. No implant(s) inserted. 09/03/2023 9:56 AM The procedure site was prepped in the usual sterile fashion. Site: R greater trochanteric bursa Medications: 80 mg triamcinolone acetonide 40 mg/mL Anesthetics: 8 mL lidocaine (PF) 10 mg/mL (1 %) Outcome: Tolerated well, no immediate complications Post-injection instructions were reviewed with the patient and the patient voiced understanding of these instructions. SIGN OUT No specimen collected. No instruments, equipment or retained foreign bodies applicable. Post-procedure follow-up management communicated and Plan of Care Visit completed when applicable Third alliance party verified by Monae Vaca MA. [facility] XR HIP JORGE LUIS 5V PEL+ AP/LAT EA HIPon 09-03-2023 XR HIP JORGE LUIS 5V PEL+ AP/LAT EA HIP * * *Final Report* * * DATE OF EXAM: Sep 03 2023 8:54AM LZX 5353 - XR HIP JORGE LUIS 5V PEL+ AP/LAT EA HIP / PROCEDURE REASON: multiple diagnoses * * * * Physician Interpretation * * * * HISTORY: Pain in left hip Pain in right hip TECHNOLOGIST PROVIDED HISTORY (if applicable): chrnic pain in hips arthritis, unable to ambulate TECHNIQUE: XR HIP JORGE LUIS 5V PEL+ AP/LAT EA HIP RESULT: Pelvis and both hips 5 views. Suspected osteopenia. Habitus and technique limit detail. Severe bilateral hip joint space narrowing with mild flattening of the femoral heads, sclerosis and osteophytes. Preserved sacroiliac joints. Mild degenerative change in lower lumbar spine and symphysis pubis. No fracture. IMPRESSION: SEVERE BILATERAL HIP OSTEOARTHRITIS. Boiler Plant Operator: FAY Transcribe Date/Time: Sep 03 2023 11:04A Dictated by : EVA ZARATE MD This examination was interpreted and the report reviewed and electronically signed by: EVA ZARATE MD on Sep 03 2023 11:05AM EST [id number] Normal [facility] XR HIP BILATERAL 5V PEL/AP/L AT EACH HIPon 09-03-2023 IMPRESSION: SEVERE BILATERAL HIP OSTEOARTHRITIS. Boiler Plant Operator: FAY Transcribe Date/Time: Sep 03 2023 11:04A Dictated by : EVA ZARATE MD This examination was interpreted and the report reviewed and electronically signed by: EVA ZARATE MD on Sep 03 2023 11:05AM EST DIVISION OF RADIOLOGY * * *Final Report* * * DATE OF EXAM: Sep 03 2023 8:54AM LZX 5353 - XR HIP JORGE LUIS 5V PEL+ AP/LAT EA HIP / PROCEDURE REASON: multiple diagnoses * * * * Physician Interpretation * * * * HISTORY: Pain in left hip Pain in right hip TECHNOLOGIST PROVIDED HISTORY (if applicable): chrnic pain in hips arthritis, unable to ambulate TECHNIQUE: XR HIP JORGE LUIS 5V PEL+ AP/LAT EA HIP RESULT: Pelvis and both hips 5 views. Suspected osteopenia. Habitus and technique limit detail. Severe bilateral hip joint space narrowing with mild flattening of the femoral heads, sclerosis and osteophytes. Preserved sacroiliac joints. Mild degenerative change in lower lumbar spine and symphysis pubis. No fracture. DIVISION OF RADIOLOGY Provider, [facility] - 09/03/2023 * * *Final Report* * * DATE OF EXAM: Sep 03 2023 8:54AM LZX 5353 - XR HIP JORGE LUIS 5V PEL+ AP/LAT EA HIP / PROCEDURE REASON: multiple diagnoses * * * * Physician Interpretation * * * * HISTORY: Pain in left hip Pain in right hip TECHNOLOGIST PROVIDED HISTORY (if applicable): chrnic pain in hips arthritis, unable to ambulate TECHNIQUE: XR HIP JORGE LUIS 5V PEL+ AP/LAT EA HIP RESULT: Pelvis and both hips 5 views. Suspected osteopenia. Habitus and technique limit detail. Severe bilateral hip joint space narrowing with mild flattening of the femoral heads, sclerosis and osteophytes. Preserved sacroiliac joints. Mild degenerative change in lower lumbar spine and symphysis pubis. No fracture. IMPRESSION IMPRESSION: SEVERE BILATERAL HIP OSTEOARTHRITIS. Boiler Plant Operator: [facility] Transcribe Date/Time: Sep 03 2023 11:04A Dictated by : EVA ZARATE MD This examination was interpreted and the report reviewed and electronically signed by: EVA ZARATE MD on Sep 03 2023 11:05AM DON [facility] Radiology Study observation (narrative) Jamar Bailon XR HIP BILATERAL 5V PEL/AP/L AT EACH HIPOrdered By: Ccf Provider on 09-03-2023 [facility] Cholesterol [Mass/volume] in Serum or PlasmaOrdered By: Joseph Tello on 06-23-2023 Cholesterol [Mass/Vol] 172 mg/dL Normal 140-200 [facility] Comment on above: Chol less than 200 m g/dl low riskChol 201-239 mg/dl borderline riskChol 240 mg/dl and greater high risk Order Comment: ANGELIQUE Ornelas Result Comment: Chol less than 200 mg/dl low risk Chol 201-239 mg/dl borderline risk Chol 240 mg/dl and greater high risk Performed By: #### T SH3 wRFLX, LIPID, [id number] #### [facility] [address] [id number] [facility] Cholesterol in LDL Calc [Mas s/Vol]Ordered By: Joseph Tello on 06-23-2023 Cholesterol in LDL [Mass/Vol] 100 mg/dL 0-100 [facility] Comment on above: LDL ATP III CLASSIFI CATIONLDL less than 100 mg/dL OptimalLDL 100-129 mg/dL Near or above optimalLDL 130-159 mg/dL Borderline highLDL 160-189 mg/dL HighLDL greater than 189 mg/dL Very high Cholesterol in VLDL Calc [Ma ss/Vol]Ordered By: Joseph Tello on 06-23-2023 Cholesterol in VLDL [Mass/Vol] 44 mg/dL [facility] ECG 12 lead ECGon 06-23-2023 ECG 12 lead ECG [facility] [address] [place] [address] Electrocardiograph Report Signed Patient: Jennifer Mendes MR#: [id number] : 1980 Acct:[id number] Age/Sex: 42 / F ADM Date: 06/22/23 Loc: Room: [address] [place] [address] Type: ADM IN Attending Dr: Joseph Tello [...] previous ECGs available Confirmed by Sekou Maciel ([id number]) on 06/23/2023 11:23:15 AM Referred By: Electronically Signed By:Sekou Maciel Transcribed By: MUS Signed By Sekou Maciel MD 06/23/23 1123 Normal [facility] Lipid Panelon 06-23-2023 LDL Cholesterol,Calculated 100 mg/dL Normal 0-100 [facility] Comment on above: Order Comment: ANGELIQUE Ornelas Result Comment: LDL ATP III CLASSIFICATION LDL less than 100 mg/dL Optimal LDL 100-129 mg/dL Near or above optimal LDL 130-159 mg/dL Borderline high LDL 160-189 mg/dL High LDL greater than 189 mg/dL Very high Performed By: #### T SH3 wRFLX, LIPID, [id number] #### [facility] [address] Triglyceride w/Reflex 220 mg/dL High 0-149 [facility] Comment on above: Order Comment: ANGELIQUE Ornelas Result Comment: TRIG ATP III CLASSIFICATION TRIG less than 150 mg/dL Normal TRIG 150-199 mg/dL Borderline high TRIG 200-500 mg/dL High TRIG greater than 500 mg/dL Very high Standard traceable to the Center for Disease Conrtrol and Prevention (CDC) test method. Performed By: #### T SH3 wRFLX, LIPID, [id number] #### [facility] [address] VLDL CHOLESTEROL 44 mg/dL Normal [facility] Comment on above: Order Comment: ANGELIQUE Ornelas Performed By: #### T SH3 wRFLX, LIPID, [id number] #### [facility] [address] Serum or plasma high density lipoprotein (HDL) cholesterol measurementOrdered By: Joseph Tello on 06-23-2023 Cholesterol in HDL [Mass/Vol] 28 mg/dL Normal 23-92 [facility] Comment on above: HDL CHOL ATP-III CLA SSIFICATION Cardiovascular RiskHDL > or equal to 60 mg/dL LOWHDL < 40 mg/dL HIGH Order Comment: ANGELIQUE Ornelas Result Comment: HDL CHOL ATP-III CLASSIFICATION Cardiovascular Risk HDL > or equal to 60 mg/dL LOW HDL < 40 mg/dL HIGH Performed By: #### T SH3 wRFLX, LIPID, [id number] #### [facility] [address] Serum or plasma total choles terol/high density lipoprotein (HDL) cholesterol mass ratOrdered By: Joseph Tello on 06-23-2023 Cholesterol.total/Cholest mitch in HDL [Mass ratio] 6.1 {ratio} Normal <5.0 [facility] Comment on above: Order Comment: FASTI NG Y Performed By: #### T SH3 wRFLX, LIPID, [id number] #### [facility] [address] Thyroid Stim Hormone w/Rflxo n 06-23-2023 Thyroid Stim Hormone w/Rflx 2.27 u[iU]/mL Normal 0.45-5.33 [facility] Comment on above: Order Comment: FASTI NG Y Performed By: #### T SH3 wRFLX, LIPID, [id number] #### [facility] [address] Thyrotropin [Units/volume] i n Serum or PlasmaOrdered By: Joseph Tello on 06-23-2023 TSH Qn 2.27 m[IU]/L 0.45-5.33 [facility] Triglyceride [Mass/volume] i n Serum or PlasmaOrdered By: Joseph Tello on 06-23-2023 Triglyceride [Mass/Vol] 220 mg/dL 0-149 [facility] Comment on above: TRIG ATP III CLASSIF ICATIONTRIG less than 150 mg/dL NormalTRIG 150-199 mg/dL Borderline highTRIG 200-500 mg/dL High TRIG greater than 500 mg/dL Very highStandard traceable to the Center for Disease Conrtrol and Prevention (CDC) test method. Vitamin D 25 Hydroxy Totalon 06-23-2023 Vitamin D 25 Hydroxy Total 13.4 ng/mL Low 30-100 [facility] Comment on above: Order Comment: FASTI NG Y Result Comment: DELVIS MIN D STATUS 25(OH)VITAMIN D RANGE (ng/mL) Deficient <20 Insufficient 20 to <30 Sufficient 30 to 100 Reference: Holick MF,Ricky NC, Shan KEARNEY, et al. Evaluation,treatment, and prevention of vitamin D deficiency; an Endocrine Society clinical practice guideline. JCEM. 2010; 96(7):191-. PERFORMED BY: [facility] [address] [facility] [place] [address] PATHOLOGIST HOUSING COORDINATOR JANNETTE ROTHMAN M.D. Performed By: #### T SH3 wRFLX, LIPID, [id number] #### [facility] [address] [id number] [facility] Vitamin D+Metabolites [Mass/ volume] in Serum or PlasmaOrdered By: Joseph Tello on 06-23-2023 Vitamin D+Metabolites [Mass/Vol] 13.4 ng/mL 30-100 [facility] Comment on above: VITAMIN D STATUS 25( [place])VITAMIN D RANGE (ng/mL) Deficient <20 Insufficient 20 to <30Sufficient 30 to 100Reference: Ricky Phipps, Shan KEARNEY, et al. Evaluation,treatment, and prevention of vitamin D deficiency; an Endocrine Society clinical practice guideline. JCEM. 2010; 96(7):1911-30. ACETAMINOPHENon 06-22-2023 Acetaminophen [Mass/Vol] 5.1 ug/mL Low 10.0-30.0 [facility] Comment on above: Result Comment: Refe rence ranges are for therapeutic limits. Performed By: #### C , 4024-6, 5643-2, 3298-7, CBCA #### [facility] ([id number]) [address] [place] [address] CBC AND AUTO DIFFon 06-22-19 24 ABSOLUTE BASOPHIL 0.2 X10E9/L Normal 0.0-0.[address] [facility] Comment on above: Performed By: #### C CHANTELL, 4024-6, 5643-2, 3298-7, CBCA #### [facility] ([id number]) [address] [place] [address]683 ABSOLUTE NEUTROPHIL 8.5 X10E9/L High 1.5-6.6 [facility] Comment on above: Performed By: #### C CHANTELL, 4024-6, 5643-2, 3297-09, CBCA #### [facility] ([id number]) [address] [place] [address] 01871 Basophils/100 WBC (Bld) 1.5 % Normal [facility] Comment on above: Performed By: #### C CHANTELL, [facility]4-6, 5643-2, 3297-09, CBCA #### [facility] ([id number]) [address] [place] [address] 12965 Eosinophils (Bld) [#/Vol] 0.9 10*3/uL High 0.0-0.4 [facility] Comment on above: Performed By: #### C CHANTELL, [facility], -, 3297-09, CBCA #### [facility] ([id number]) [address] [place] [address] 64132 Eosinophils/100 WBC (Bld) 6.5 % Normal [facility] Comment on above: Performed By: #### C CHANTELL, [facility]-6, 5642-2, 3297-09, CBCA #### [facility] ([id number]) [address] [place] [address] 57907 Erythrocyte distribution width (RBC) [Ratio] 18.1 % High 11.5-15.0 [facility] Comment on above: Performed By: #### C CHANTELL, [facility]-6, 5643-2, 3297-09, CBCA #### [facility] ([id number]) [address] [place] [address] 56918 Hematocrit (Bld) [Volume fraction] 35.5 % Normal 35-47 [facility] Comment on above: Performed By: #### C CHANTELL, [facility]-6, 5643-2, 3297-09, CBCA #### [facility] ([id number]) [address] [place] [address] 61222 Hemoglobin (Bld) [Mass/Vol] 11.2 g/dL Low 11.7-15.5 [facility] Comment on above: Performed By: #### C CHANTELL, [facility]-6, 5643-2, 3297, CBCA #### [facility] ([id number]) [address] [place] [address] 18567 Lymphocytes (Bld) [#/Vol] 3.1 10*3/uL Normal 1.0-3.5 [facility] Comment on above: Performed By: #### C CHANTELL, [facility], [facility]-2, 3297-09, CBCA #### [facility] ([id number]) [address] [place] [address] 77083 Lymphocytes/100 WBC (Bld) 22.2 % Normal [facility] Comment on above: Performed By: #### C CHANTELL, [facility]6, [facility]-2, 32910-12, CBCA #### [facility] ([id number]) [address] [place] [address] 08846 MCH (RBC) [Entitic mass] 23.1 pg Low 27-34 [facility] Comment on above: Performed By: #### C CHANTELL, [facility]6, [facility]-2, 32910-12, CBCA #### [facility] ([id number]) [address] [place] [address] 91406 MCHC (RBC) [Mass/Vol] 31.4 g/dL Low 32-36 [facility] Comment on above: Performed By: #### C CHANTELL, [facility]-6, 5643-2, 3298, CBCA #### [facility] ([id number]) [address] [place] [address] 47669 MCV (RBC) [Entitic vol] 74 fL Low 80-100 [facility] Comment on above: Performed By: #### Rene ABDUL, 4024-6, 5643-2, 3297-7, CBCA #### [facility] ([id number]) [address] [place] [address] 33468 Monocytes (Bld) [#/Vol] 1.1 10*3/uL High 0-0.9 [facility] Comment on above: Performed By: #### C CHANTELL, 4024-6, 5643-2, 3297-09, CBCA #### [facility] ([id number]) [address] [place] [address] 40387 Monocytes/100 WBC (Bld) 8.0 % Normal [facility] Comment on above: Performed By: #### Rene ABDUL, 4024-6, 5643-2, 3297-09, CBCA #### [facility] ([id number]) [address] [place] [address] 39204 Neutrophils/100 WBC (Bld) 61.8 % Normal [facility] Comment on above: Performed By: #### Rene ABDUL, 4024-6, 5643-2, 3297-09, CBCA #### [facility] ([id number]) [address] [place] [address] 83263 Platelet mean volume (Bld) [Entitic vol] 7.9 fL Normal 7-12 [facility] Comment on above: Performed By: #### Rene ABDUL, 4024-6, 5643-2, 32910-12, CBCA #### [facility] ([id number]) [address] [place] [address] 61367 Platelets (Bld) [#/Vol] 530 10*3/uL High 150-450 [facility] Comment on above: Performed By: #### Rene ABDUL, 4024-6, 5643-2, 32910-12, CBCA #### [facility] ([id number]) [address] [place] [address] 29990 RBC COUNT 4.82 X10E12/L Normal 3.80-5.20 [facility] Comment on above: Performed By: #### C CHANTELL, 4024-6, 5643-2, 3298-7, CBCA #### [facility] ([id number]) [address] [place] [address] 69910 WBC (Bld) [#/Vol] 13.8 10*3/uL High 4.0-11.0 [facility] Comment on above: Performed By: #### C CHANTELL, 4024-6, 5643-2, 3298-7, CBCA #### [facility] ([id number]) [address] [place] [address] 26410 COMPREHENSIVE METABOLIC PANE Jace 06-22-2023 Albumin [Mass/Vol] 3.6 g/dL Normal 3.2-5.[address] [facility] Comment on above: Performed By: #### C CHANTELL, 4024-6, 5643-2, 3298-7, CBCA #### [facility] ([id number]) [address] [place] [address] 79980 ALP [Catalytic activity/Vol] 51 U/L Normal 39-130 [facility] Comment on above: Performed By: #### C CHANTELL, 4024-6, 5643-2, 3298-7, CBCA #### [facility] ([id number]) [address] [place] [address] 83811 ALT [Catalytic activity/Vol] 18 U/L Normal 0-31 [facility] Comment on above: Performed By: #### C CHANTELL, 4024-6, 5643-2, 3298-7, CBCA #### [facility] ([id number]) [address] [place] [address] 97376 Anion gap [Moles/Vol] 6 mmol/L Normal 5-15 [facility] Comment on above: Performed By: #### C CHANTELL, 4024-6, 5643-2, 329-7, CBCA #### [facility] ([id number]) [address] [place] [address] 22335 AST [Catalytic activity/Vol] 14 U/L Normal 0-41 [facility] Comment on above: Performed By: #### C CHANTELL, 4024-6, 5643-2, 7, CBCA #### [facility] ([id number]) [address] [place] [address] 51760 Bilirubin [Mass/Vol] 0.6 mg/dL Normal 0.3-1.2 [facility] Comment on above: Performed By: #### C CHANTELL, 4024-6, 5643-2, 7, CBCA #### [facility] ([id number]) [address] [place] [address] 83404 Calcium [Mass/Vol] 9.0 mg/dL Normal 8.5-10.[address] [facility] Comment on above: Performed By: #### C CHANTELL, 4024-6, 5643-2, 3297-09, CBCA #### [facility] ([id number]) [address] [place] [address] 16254 Chloride [Moles/Vol] 104 mmol/L Normal 98-109 [facility] Comment on above: Performed By: #### C CHANTELL, 4024-6, 5643-2, 7, CBCA #### [facility] ([id number]) [address] [place] [address] 30440 CO2 [Moles/Vol] 26 mmol/L Normal 22-32 [facility] Comment on above: Performed By: #### C CHANTELL, 4024-6, 5643-2, 329-7, CBCA #### [facility] ([id number]) [address] [place] [address] Creatinine [Mass/Vol] 0.84 mg/dL Normal 0.40-1.00 [facility] Comment on above: Result Comment: METH OD TRACEABLE TO IDMS STANDARD Performed By: #### C CHANTELL, 4024-6, 5643-2, 329-7, CBCA #### [facility] ([id number]) [address] [place] [address] 54310 GFR/1.73 sq M.predicted among non-blacks MDRD (S/P/Bld) [Vol rate/Area] 88 mL/min/{1.73_m2} Normal >59 [facility] Comment on above: Result Comment: Reported eGFR is based on the CKD-EPI 2020 equation that does not use a race coefficient. Performed By: #### C CHANTELL, 4024-6, 5643-2, 3297, CBCA #### [facility] ([id number]) [address] [place] [address] 94338 Glucose [Mass/Vol] 96 mg/dL Normal 65-99 [facility] Comment on above: Performed By: #### C CHANTELL, 4024-6, 5643-2, 32910-12, CBCA #### [facility] ([id number]) [address] [place] [address] 77631 Potassium [Moles/Vol] 3.9 mmol/L Normal 3.5-5.0 [facility] Comment on above: Performed By: #### C CHANTELL, 4024-6, 5643-2, 329-7, CBCA #### [facility] ([id number]) [address] [place] [address] 24383 Protein [Mass/Vol] 8.0 g/dL Normal 6.0-8.[address] [facility] Comment on above: Performed By: #### C CHANTELL, 4024-6, 5643-2, 3298-7, CBCA #### [facility] ([id number]) [address] [place] [address] 28346 Sodium [Moles/Vol] 136 mmol/L Normal 134-[address] [facility] Comment on above: Performed By: #### C CHANTELL, 4024-6, 5643-2, 3298-7, CBCA #### [facility] ([id number]) [address] [place] [address] 12283 Urea nitrogen [Mass/Vol] 21 mg/dL Normal 5-23 [facility] Comment on above: Performed By: #### C CHANTELL, 4024-6, 5643-2, 3298-7, CBCA #### [facility] ([id number]) [address] [place] [address] 94151 DRUG SCREEN, URINEon 024 AMPHETAMINE/METHAMP Negative Normal NEG [facility] Comment on above: Result Comment: AMPH /METH screening cut off = 1000 ng/mL Performed By: #### D CRUZ #### [facility] ([id number]) [address] [place] [address] 09477 BARBITURATES Negative Normal NEG [facility] Comment on above: Result Comment: Ella iturates screening cut off value = 200 ng/mL Performed By: #### D CRUZ #### [facility] ([id number]) [address] [place] [address] 28834 BENZODIAZEPINES Negative Normal NEG [facility] Comment on above: Result Comment: Feng odiazepines screening cut off value = 200 ng/mL Performed By: #### D CRUZ #### [facility] ([id number]) [address] [place] [address] 88867 CANNABINOIDS Positive Abnormal NEG [facility] Comment on above: Result Comment: Conf irmation available upon request. Cannabinoids/THC screening cut off value = 50 ng/mL Performed By: #### D CRUZ #### [facility] ([id number]) [address] [place] [address] [place] [address] COCAINE METABOLITE Negative Normal NEG [facility] Comment on above: Result Comment: Coca ine screening cut off value = 300 ng/mL Performed By: #### D CRUZ #### [facility] ([id number]) [address] [place] [address] 94636 ECSTASY Negative Normal NEG [facility] Comment on above: Result Comment: Ecst asy screening cut off value = 500 ng/mL This report is intended for use in clinical monitoring or management of patients. Performed By: #### D CRUZ #### [facility] ([id number]) [address] [place] [address] 15717 METHADONE Negative Normal NEG [facility] Comment on above: Result Comment: Meth adone screening cut off value = 300 ng/mL. Performed By: #### D CRUZ #### [facility] ([id number]) [address] [place] [address] 58265 OPIATES Negative Normal NEG [facility] Comment on above: Result Comment: Opia alesha screening cut off value = 300 ng/mL NOTE: This test is used for the detection of codeine, hydrocodone (>1000 ng/mL), morphine and hydromorphone (>900 ng/mL) in urine. Performed By: #### D CRUZ #### [facility] ([id number]) [address] [place] [address] 62869 OXYCODONE Positive Abnormal NEG [facility] Comment on above: Result Comment: Conf irmation available upon request. Oxycodone screening cut off value = 300 ng/mL NOTE: This test is used for the detection of oxycodone and oxymorphone in urine. Performed By: #### D CRUZ #### [facility] ([id number]) [address] [place] [address] 27194 PHENCYCLIDINE Negative Normal NEG [facility] Comment on above: Result Comment: Phen cyclidine screening cut off value = 25 ng/mL Performed By: #### D CRUZ #### [facility] ([id number]) [address] [place] [address] 24391 ETHANOLon 06-22-2023 Ethanol [Mass/Vol] mg/dL Normal 0.00-0.[address] [facility] Comment on above: Result Comment: This report is intended for use in clinical monitoring or management of patients. Performed By: #### C CHANTELL, 4024-6, 5643-2, 3298-7, CBCA #### [facility] ([id number]) [address] [place] [address] 34538 HCG ( test) Ql (U)o n 06-22-2023 Beta HCG ( test) Ql (U) Negative Normal NEG [facility] Comment on above: Performed By: #### 2 106-3 #### [facility] ([id number]) [address] [place] [address] 06919 Salicylates [Mass/Vol]on SALICYLATE <4.0 Normal 2.0-25.0 [facility] Comment on above: Result Comment: Refe rence ranges are for therapeutic limits. Performed By: #### C CHANTELL, 4024-6, 5643-2, 3298-7, CBCA #### [facility] ([id number]) [address] [place] [address] 03756 URN MACROSCOPIC NURon 2023 BILIRUBIN [place] Negative Normal NEG [facility] Comment on above: Performed By: #### N UM #### [facility] ([id number]) [address] [place] [address] 23501 BLOOD/HGB [place] Trace Abnormal NEG [facility] Comment on above: Performed By: #### N UM #### [facility] ([id number]) [address] [place] [address] 09630 GLUCOSE [place] Negative Normal NEG [facility] Comment on above: Performed By: #### N UM #### [facility] ([id number]) [address] [place] [address] 63554 KETONES [place] Negative Normal NEG [facility] Comment on above: Performed By: #### N UM #### [facility] ([id number]) [address] [place] [address] 52640 LEUKOCYTE ESTERASE [place] MODERATE Abnormal NEG [facility] Comment on above: Performed By: #### N UM #### [facility] ([id number]) [address] [place] [address] 83782 NITRITE [place] Negative Normal NEG [facility] Comment on above: Performed By: #### N UM #### [facility] ([id number]) [address] [place] [address] 82679 PH [place] 5.0 Normal 5.0-8.5 [facility] Comment on above: Performed By: #### N UM #### [facility] ([id number]) [address] [place] [address] 44306 PROTEIN [place] Negative Normal NEG [facility] Comment on above: Performed By: #### N UM #### [facility] ([id number]) [address] [place] [address] 00923 SPECIFIC GRAVITY [place] 1.015 Normal 1.003-1.035 [facility] Comment on above: Performed By: #### N UM #### [facility] ([id number]) [address] [place] [address] 04843 UROBILINOGEN [place] 0.2 eu/dL Normal <1.1 [facility] Comment on above: Performed By: #### N UM #### [facility] ([id number]) [address] [place] [address] 08527 PAP ACOG PANEL 2: 30 to 65on 06-03-2022 . . Normal [facility] Comment on above: Result Comment: Perf ormed at: WB Performed By: #### 4 [id number] #### [facility] [address] [address] [address] Dustin Hoover Age Gdln ACOG Testing 30-65 Normal [facility] Comment on above: Performed By: #### 4 [id number] #### [facility] [address] [address] [address] Dustin Hoover DIAGNOSIS: Comment Abnormal [facility] Comment on above: Result Comment: EPIT HELIAL CELL ABNORMALITY. ATYPICAL SQUAMOUS CELLS OF UNDETERMINED SIGNIFICANCE (ASC-US). TRICHOMONAS VAGINALIS IS PRESENT. Performed at: WB Performed By: #### 4 [id number] #### [facility] [address] [address] [address] Dustin Hoover Electronically signed by: Comment Normal [facility] Comment on above: Result Comment: Andreia López MD, Pathologist Performed at: WB Performed By: #### 4 [id number] #### [facility] [address] [address] [address] Dustin Hoover HPV Aptima Negative Normal Negative [facility] Comment on above: Result Comment: This nucleic acid amplification test detects fourteen high-risk HPV types (16,18,31,33,35,39,45,51,52,56,58,59,66,68) without differentiation. Performed at: =G Performed By: #### 4 [id number] #### [facility] [address] [address] [address] Dustin Hoover HPV Genotype Reflex Comment Normal [facility] Comment on above: Result Comment: Crit eria not met, HPV Genotype not performed. Performed at: WB Performed By: #### 4 [id number] #### [facility] [address] [address] [address] Dustin Hoover Methodology: Comment Normal [facility] Comment on above: Result Comment: This liquid based ThinPrep(R) pap test was screened with the use of an image guided system. Performed at: WB Performed By: #### 4 [id number] #### [facility] [address] [place] [address] Dr. Dustin Hoover Note: Comment Normal [facility] Comment on above: Result Comment: The Pap smear is a screening test designed to aid in the detection of premalignant and malignant conditions of the uterine cervix. It is not a diagnostic procedure and should not be used as the sole means of detecting cervical cancer. Both false-positive and false-negative reports do occur. . Performed at: WB Performed By: #### 4 [id number] #### [facility] [address] [place] [address] Dr. Dustin Hoover Pathologist Provided ICD10 Comment Normal [facility] Comment on above: Result Comment: R87. 610, R87.5 Performed at: WB Performed By: #### 4 [id number] #### [facility] [address] [place] [address] Dr. Dustin Hoover Performed by: Comment Normal [facility] Comment on above: Result Comment: Bernadette Tucker, Record Producer (ASCP) Performed at: WB Performed By: #### 4 [id number] #### [facility] [address] [place] [address] Dr. Dustin Hoover Recommendation: Comment Abnormal [facility] Comment on above: Result Comment: Sugg est follow up as clinically appropriate. Performed at: WB Performed By: #### 4 [id number] #### [facility] [address] [place] [address] Dr. Dustin Hoover Specimen adequacy: Comment [facility] Comment on above: Result Comment: Sati sfactory for evaluation. Endocervical and/or squamous metaplastic cells (endocervical component) are present. Performed at: WB Performed By: #### 4 [id number] #### [facility] [address] [place] [address] Dr. Dustin Hoover LIPID PROFILEon 05-28-2022 CHOL-HDL RATIO NORM SEE BELOW [facility] Comment on above: Result Comment: 3.3 - 4.4 LOW RISK 4.4 - 7.1 AVERAGE RISK 7.1 - 11.0 MODERATE RISK >11.0 HIGH RISK Performed By: #### P TT, PT #### [facility] [address] [place] [address] Dr. Dustin Hoover Cholesterol [Mass/Vol] 180 mg/dL Normal <=200 [facility] Comment on above: Performed By: #### P TT, PT #### [facility] [address] [address] [address] Dustin Hoover Cholesterol in HDL [Mass/Vol] 32 mg/dL Critically low 40-60 [facility] Comment on above: Performed By: #### P TT, PT #### [facility] [address] [address] [address] Dustin Hoover Cholesterol in LDL [Mass/Vol] 108.6 mg/dL Normal [facility] Comment on above: Performed By: #### P TT, PT #### [facility] [address] [place] [address] Dr. Dustin Hoover Cholesterol.total/Cholest mitch in HDL [Mass ratio] 5.6 {ratio} Normal [facility] Comment on above: Performed By: #### P TT, PT #### [facility] [address] [address] [address] Dustin Hoover HDL NORMAL > or = 60 mg/dl - LO W CARDIOVASCULAR RISK <40 mg/dl - HIGH CARDIOVASCULAR RISK Normal [facility] Comment on above: Performed By: #### P TT, PT #### [facility] [address] [place] [address] Dr. Dustin Hoover LDL CALC NORMAL SEE BELOW Normal [facility] Comment on above: Result Comment: <100 mg/dl OPTIMAL 100 - 129 mg/dl NEAR OR ABOVE OPTIMAL 130 - 159 mg/dl BORDERLINE HIGH 160 - 189 mg/dl HIGH >190 mg/dl VERY HIGH Performed By: #### P TT, PT #### [facility] [address] [address] [address] Dustin Hoover Triglyceride [Mass/Vol] 197 mg/dL Critically high <=150 [facility] Comment on above: Performed By: #### P TT, PT #### [facility] [address] [address] [address] Dustin Hoover VLDL CALC 39.4 mg/dL Normal [facility] Comment on above: Performed By: #### P TT, PT #### [facility] [address] [place], [place] [address] Dr. Dustin Hoover MG MAMM SCREEN 3D JORGE LUIS CADon 05-28-2022 MG MAMM SCREEN 3D JORGE LUIS CAD Patient: JENNIFER MANZANO Exam Date: 05/28/2022 : 1980 Gender:F Ordering : DEMETRIA PHILLIPS Admission #: [id number] Family : Order #: [id number] CLICK HERE TO VIEW EXAM RADIOLOGY REPORT [...] breast cancer at age 64. LOCATION: [facility] BREAST COMPOSITION: Almost entirely fatty. FINDINGS: [...] Medina M.D. on 05/28/2022 at 13:16 Normal [facility] PROF 14(COMP METB)on 023 Albumin [Mass/Vol] 3.3 g/dL Critically low 3.4-5.0 Th e [facility] Comment on above: Performed By: #### P TT, PT #### [facility] [address] [address] [address] Dustin Hoover Albumin/Globulin [Mass ratio] 0.9 {ratio} Normal [facility] Comment on above: Performed By: #### P TT, PT #### [facility] [address] [place], [place] [address] Dr. Dustin Hoover ALP [Catalytic activity/Vol] 54 U/L Normal 46-116 [facility] Comment on above: Performed By: #### P TT, PT #### [facility] [address] [address] [address] Dustin Hoover ALT [Catalytic activity/Vol] 18 U/L Normal 14-59 [facility] Comment on above: Performed By: #### P TT, PT #### [facility] [address] [address] [address] Dustin Hoover Anion gap [Moles/Vol] 10.8 mmol/L Normal Th [facility] Comment on above: Performed By: #### P TT, PT #### [facility] [address] [address] [address] Dustin Hoover AST [Catalytic activity/Vol] 11 U/L Critically low 15-37 [facility] Comment on above: Performed By: #### P TT, PT #### [facility] [address] [address] [address] Dustin Hoover Bilirubin [Mass/Vol] 0.3 mg/dL Normal 0.2-1.0 [facility] Comment on above: Performed By: #### P TT, PT #### [facility] [address] [address] [address] Dustin Hoover Calcium [Mass/Vol] 8.5 mg/dL Normal 8.5-10.1 [facility] Comment on above: Performed By: #### P TT, PT #### [facility] [address] [address] [address] Dustin Hoover Chloride [Moles/Vol] 105 mmol/L Normal 98-107 [facility] Comment on above: Performed By: #### P TT, PT #### [facility] [address] [address] [address] Dustin Hoover CO2 [Moles/Vol] 26.2 mmol/L Normal 21.0-32.0 [facility] Comment on above: Performed By: #### P TT, PT #### [facility] [address] [address] [address] Dustin Hoover Creatinine [Mass/Vol] 0.61 mg/dL Normal 0.55-1.02 [facility] Comment on above: Performed By: #### P TT, PT #### [facility] [address] [place] [address] Dr. Dustin Hoover EGFR-AF MALTESE >60 Normal >=60 [facility] Comment on above: Performed By: #### P TT, PT #### [facility] [address] [address] [address] Dustin Hoover EGFR-NON AF MALTESE >60 Normal >=60 [facility] Comment on above: Performed By: #### P TT, PT #### [facility] [address] [address] [address] Dustin Hoover Globulin (S) [Mass/Vol] 3.7 g/dL Normal T [facility] Comment on above: Performed By: #### P TT, PT #### [facility] [address] [place] [address] Dr. Dustin Hoover Glucose [Mass/Vol] 99 mg/dL Normal 74-106 [facility] Comment on above: Performed By: #### P TT, PT #### [facility] [address] [place] [address] Dr. Dustin Hoover Potassium [Moles/Vol] 4.0 mmol/L Normal 3.5-5.1 [facility] Comment on above: Performed By: #### P TT, PT #### [facility] [address] [place] [address] Dr. Dustin Hoover Protein [Mass/Vol] 7.0 g/dL Normal 6.4-8.2 [facility] Comment on above: Performed By: #### P TT, PT #### [facility] [address] [place] [address] Dr. Dustin Hoover Sodium [Moles/Vol] 138 mmol/L Normal 136-145 [facility] Comment on above: Performed By: #### P TT, PT #### [facility] [address] [address] [address] Dustin Hoover Urea nitrogen [Mass/Vol] 8.0 mg/dL Normal 7.0-18.0 [facility] Comment on above: Performed By: #### P TT, PT #### [facility] [address] [place] [address] Dr. Dustin Hoover Urea nitrogen/Creatinine [Mass ratio] 13.1 mg/mg Normal [facility] Comment on above: Performed By: #### P TT, PT #### [facility] [address] [place] [address] Dr. Dustin Hoover PROTIMEon 05-28-2022 INR Coag (PPP) [Relative time] 0.97 {INR} Normal [facility] Comment on above: Performed By: #### P TT, PT #### [facility] [address] [place] [address] Dr. Dustin Hoover INR GUIDELINES SEE BELOW Normal [facility] Comment on above: Result Comment: MARIA DOLORES RED INR: 2.0 - 3.0 CONDITIONS NOT LISTED BELOW 2.5 - 3.5 FOR PROSTHETIC HEART VALVE REPLACEMENT 2.5 - 3.5 RECURRENT THROMBOSIS Performed By: #### P TT, PT #### [facility] [address] [place] [address] Dr. Dustin Hoover PT Coag (PPP) [Time] 10.3 s Normal 9.0-11.6 [facility] Comment on above: Performed By: #### P TT, PT #### [facility] [address] [place] [address] Dr. Dustin Hoover PTTon 05-28-2022 aPTT Coag (Bld) [Time] 26.9 s Normal 22.3-36.2 Th [facility] Comment on above: Performed By: #### P TT, PT #### [facility] [address] [place] [address] Dr. Dustin Hoover CHLAMYDIA/GONOCOCCUS QUENTIN (SW AB/URINE/PAPon 05-27-2022 Chlamydia trachomatis, QUENTIN Negative Normal Negative [facility] Comment on above: Performed By: #### P TT, PT #### [facility] [address] [place] [address] Dr. Dustin Hoover Neisseria gonorrhoeae, QUENTIN Negative Normal Negative [facility] Comment on above: Performed By: #### P TT, PT #### [facility] [address] [place] [address] Dr. Dustin Hoover DHEA SERUMon 05-27-2022 Dehydroepiandrosterone (DHEA) 382 ng/dL Normal 31-701 [facility] Comment on above: Performed By: #### P TT, PT #### [facility] [address] [place] [address] Dr. Dustin Hoover VAGINITIS/VAGINOSIS DNA PROB Michael 05-27-2022 Catherine species Negative Normal Negative [facility] Comment on above: Performed By: #### V AGINT #### [facility] [address] [place] [address] Dr. Dustin Hoover Gardnerella vaginalis Positive Abnormal Negative [facility] Comment on above: Performed By: #### V AGINT #### [facility] [address] [place] [address] Dr. Dustin Hoover Trichomonas vaginalis Positive Abnormal Negative [facility] Comment on above: Performed By: #### V AGINT #### [facility] [address] [place] [address] Dr. Dustin Hoover DHEA-SULFATEon 05-26-2022 DHEA-Sulfate 48.3 ug/dL Critically low 57.3-279.2 [facility] Comment on above: Performed By: #### D HEASUL #### [facility] [address] [place] [address] Dr. Dustin Hoover FSHon 05-26-2022 FSH 14.7 mIU/mL Normal [facility] Comment on above: Result Comment: Adul t Female: Follicular phase 3.5 - 12.5 Ovulation phase 4.7 - 21.5 Luteal phase 1.7 - 7.7 Postmenopausal 25.8 - 134.8 Performed By: #### P TT, PT #### [facility] [address] [place] [address] Dr. Dustin Hoover HEPATITIS PANEL, ACUTEon HBsAg Screen Negative Normal Negative [facility] Comment on above: Performed By: #### H EPACUT #### [facility] [address] [place] [address] Dr. Dustin Hoover HCV AB Non-Reactive Normal Non Reactive [facility] Comment on above: Performed By: #### H EPACUT #### [facility] [address] [address] [address] Dustin Hoover Hep A Ab, IgM Negative Normal Negative [facility] Comment on above: Performed By: #### H EPACUT #### [facility] [address] [address] [address] Dustin Hoover Hep B Core Ab, IgM Negative Normal Negative [facility] Comment on above: Performed By: #### H EPACUT #### [facility] [address] [address] [address] Dustin Hoover Interpretation: Comment Normal [facility] Comment on above: Result Comment: Not infected with HCV unless early or acute infection is suspected (which may be delayed in an immunocompromised individual), or other evidence exists to indicate HCV infection. Performed By: #### H EPACUT #### [facility] [address] [place] [address] Dr. Dustin Hoover HIV 1 AND 2 WITH REFLEXon HIV Screen 4th Generation wRfx Non-Reactive Normal Non Reactive [facility] Comment on above: Result Comment: HIV Negative HIV-1/HIV-2 antibodies and HIV-1 p24 antigen were NOT detected. There is no laboratory evidence of HIV infection. Performed By: #### H IV12 #### [facility] [address] [place] [address] Dr. Dustin Hoover LUTEINIZING HORMONE (LH)on 0 05-26-2022 LH 41.0 mIU/mL Normal [facility] Comment on above: Result Comment: Adul t Female: Follicular phase 2.4 - 12.6 Ovulation phase 14.0 - 95.6 Luteal phase 1.0 - 11.4 Postmenopausal 7.7 - 58.5 Performed By: #### L BCLH #### [facility] [address] [place] [address] Dr. Dustin Hoover RPR QUANTon 05-26-2022 Rapid Plasma Reagin, Quant Non-Reactive Normal NonRea<1:1 [facility] Comment on above: Result Comment: Plea se Note: This test does not meet current guidelines for screening and diagnosis of syphilis. This test is intended for following treatment response in patients being treated for syphilis infection. To screen for syphilis infection, a reflex cascade that includes both RPR and a treponema-specific assay should be utilized, such as Treponema pallidum (Syphilis) Screening [place] (641396) or Rapid Plasma Reagin (RPR) Test With Reflex to Quantitative RPR and Confirmatory Treponema pallidum Antibodies (113583). Performed By: #### P TT, PT #### [facility] [address] [place] [address] Dr. Dustin Hoover CBC AUTO DIFFon 05-25-2022 BASO # 0.1 103/ul Normal 0.0-0.1 [facility] Comment on above: Performed By: #### C BC #### [facility] [address] [place] [address] Dr. Dustin Hoover Basophils/100 WBC (Bld) 0.7 % Normal 0.2-2.0 [facility] Comment on above: Performed By: #### C BC #### [facility] [address] [place] [address] Dr. Dustin Hoover EO # 0.5 103/ul Normal 0.0-0.7 [facility] Comment on above: Performed By: #### C BC #### [facility] [address] [place] [address] Dr. Dustin Hoover Eosinophils/100 WBC (Bld) 2.6 % Normal 0.9-7.0 [facility] Comment on above: Performed By: #### C BC #### [facility] [address] [place] [address] Dr. Dustin Hoover Erythrocyte distribution width (RBC) [Ratio] 17.2 % Critically high 11.0-15.0 [facility] Comment on above: Performed By: #### C BC #### [facility] [address] [place] [address] Dr. Dustin Hoover Hematocrit (Bld) [Volume fraction] 39.7 % Normal 36.0-48.0 [facility] Comment on above: Performed By: #### C BC #### [facility] [address] [place] [address] Dr. Dustin Hoover Hemoglobin (Bld) [Mass/Vol] 12.4 g/dL Normal 12.0-16.0 [facility] Comment on above: Performed By: #### C BC #### [facility] [address] [place] [address] Dr. Dustin Hoover IG # 0.13 10e3/ul Critically high 0.00-0.03 [facility] Comment on above: Performed By: #### C BC #### [facility] [address] [place] [address] Dr. Dustin Hoover IG % 0.7 % Critically high 0.0-0.5 [facility] Comment on above: Performed By: #### C BC #### [facility] [address] [place] [address] Dr. Dustin Hoover LYMPH # 4.1 103/ul Critically high 1.2-3.8 [facility] Comment on above: Performed By: #### C BC #### [facility] [address] [place] [address] Dr. Dustin Hoover Lymphocytes/100 WBC (Bld) 22.9 % Normal 20.5-60.0 [facility] Comment on above: Performed By: #### C BC #### [facility] [address] [place] [address] Dr. Dustin Hoover MANUAL DIFF REQ NO Normal [facility] Comment on above: Performed By: #### C BC #### [facility] [address] [place] [address] Dr. Dustin Hoover MCH (RBC) [Entitic mass] 23.8 pg Critically low 26.7-34 .0 [facility] Comment on above: Performed By: #### C BC #### [facility] [address] [place] [address] Dr. Dustin Hoover MCHC (RBC) [Mass/Vol] 31.2 g/dL Normal 29.9-35.2 [facility] Comment on above: Performed By: #### C BC #### [facility] [address] [place] [address] Dr. Dustin Hoover MCV (RBC) [Entitic vol] 76.2 fL Critically low 81.0-99. 0 [facility] Comment on above: Performed By: #### C BC #### [facility] [address] [place] [address] Dr. Dustin Hoover MONO # 1.3 103/ul Critically high 0.3-0.8 [facility] Comment on above: Performed By: #### C BC #### [facility] [address] [place] [address] Dr. Dustin Hoover Monocytes/100 WBC (Bld) 7.0 % Normal 1.7-12.0 [facility] Comment on above: Performed By: #### C BC #### [facility] [address] [place] [address] Dr. Dustin Hoover NEUT # 11.9 103/ul Critically high 1.4-6.5 [facility] Comment on above: Performed By: #### C BC #### [facility] [address] [place] [address] Dr. Dustni Hoover Neutrophils/100 WBC (Bld) 66.1 % Normal 43.0-75.0 [facility] Comment on above: Performed By: #### C BC #### [facility] [address] [place] [address] Dr. Dustin Hoover Platelet mean volume (Bld) [Entitic vol] 10.1 fL Normal 9.5-13.5 [facility] Comment on above: Performed By: #### C BC #### [facility] [address] [place] [address] Dr. Dustin Hoover PLT 499 103/ul Critically high 150-450 [facility] Comment on above: Performed By: #### C BC #### [facility] [address] [place], [place] [id number] Dr. Dustin Hoover RBC 5.21 106/ul Normal 4.20-5.40 [facility] Comment on above: Performed By: #### C BC #### [facility] [address] [place] [address] Dr. Dustin Hoover WBC 18.0 103/ul Critically high 4.0-11.0 [facility] Comment on above: Performed By: #### C BC #### [facility] [address] [place] [address] Dr. Dustin Hoover FREE T4on 05-25-2022 Free T4 [Mass/Vol] 0.82 ng/dL Normal 0.76-1.46 [facility] Comment on above: Performed By: #### P TT, PT #### [facility] [address] [place] [address] Dr. Dustin Hoover GLYCOHEMOGLOBIN A1Con 2022 ADA RECOMMENDATION SEE BELOW Normal [facility] Comment on above: Result Comment: ADA RECOMMENDED LIMIT 4.0 - 6.0 ADA THERAPEUTIC TARGET < 7.0 ACTION SUGGESTED > 7.0 Performed By: #### A 1C #### [facility] [address] [place] [address] Dr. Dustin Hoover Glucose [Mass/Vol] 108 mg/dL Normal [facility] Comment on above: Performed By: #### A 1C #### [facility] [address] [place] [address] Dr. Dustin Hoover HbA1c (Bld) [Mass fraction] 5.4 % Normal 4.5-6.2 [facility] Comment on above: Performed By: #### A 1C #### [facility] [address] [place] [address] Dr. Dustin Hoover PREG QUANT HCGon 05-25-2022 HCG QUANT 1 mIU/mL Normal [facility] Comment on above: Performed By: #### P TT, PT #### [facility] [address] [place] [address] Dr. Dustin Hoover HCG RANGE SEE BELOW Normal [facility] Comment on above: Result Comment: 5-50 0.2-1 WEEK 50-500 1-2 WEEKS 100-5,000 2-3 WEEKS 500-10,000 3-4 WEEKS 1,000-50,000 4-5 WEEKS 10,000-100,000 5-6 WEEKS 15,000-200,000 6-8 WEEKS 10,000-100,000 2-3 MONTHS Performed By: #### P TT, PT #### [facility] [address] [address] [address] Dustin Hoover TSHon 05-25-2022 TSH 2.768 uIU/mL Normal 0.358-3.740 [facility] Comment on above: Performed By: #### P TT, PT #### [facility] [address] [address] [address] Dustin Hoover Vital Signs Date Time Vital Sign Value Performing Clinician Facility 06-25-2023 15:14-0400 Body temperature 98.1 [degF] [facility] 06-25-2023 15:14-0400 Diastolic blood pressure 88 mm[Hg] [facility] 06-25-2023 15:14-0400 Heart rate 105 /min [facility] 06-25-2023 15:14-0400 Respiratory rate 18 /min [facility] 06-25-2023 15:14-0400 SaO2% (BldA) [Mass fraction] 95 % [facility] 06-25-2023 15:14-0400 Systolic blood pressure 119 mm[Hg] [facility] 06-23-2023 14:22-0400 Body height 157.48 cm [facility] 06-22-2023 22:00-0400 Body weight 147.41 kg [facility] 06-03-2023 21:42-0400 Body mass index (BMI) [Ratio] 59.55 kg/m2 ButchYeswareng DO Work Phone: [facility] 06-03-2023 21:42-0400 Body weight 147.69 kg Butch Furlong DO Work Phone: [facility] 05-28-2023 18:56-0400 Body mass index (BMI) [Ratio] 61.16 kg/m2 Butch Furlong DO Work Phone: [facility] 05-28-2023 18:56-0400 Body weight 151.68 kg Butch Furlong DO Work Phone: [facility] 05-28-2023 18:56-0400 Diastolic blood pressure 68 mm[Hg] Butch Oneilng DO [facility] Phone: [facility] 05-28-2023 18:56-0400 Heart rate 71 /min Butch Oneilng DO Work Phone: [facility] 05-28-2023 18:56-0400 Systolic blood pressure 104 mm[Hg] Butch Oneilng DO Work Phone: [facility] 05-18-2023 19:08-0400 Body mass index (BMI) [Ratio] 60.36 kg/m2 Megan Cash APRN-TREASURY SPECIALIST Work Phone: [facility] 05-18-2023 19:08-0400 Body temperature 98.01 [degF] Megan Cash APRN-TREASURY SPECIALIST Work Phone: [facility] 05-18-2023 19:08-0400 Body weight 149.69 kg Meganso Cash APRN-TREASURY SPECIALIST Work Phone: [facility] 05-18-2023 19:08-0400 Diastolic blood pressure 68 mm[Hg] Megan Cash APRN-TREASURY SPECIALIST Work Phone: [facility] 05-18-2023 19:08-0400 Heart rate 71 /min Megan Cash APRN-TREASURY SPECIALIST Work Phone: [facility] 05-18-2023 19:08-0400 Respiratory rate 18 /min Megan Cash APRN-TREASURY SPECIALIST Work Phone: [facility] 05-18-2023 19:08-0400 SaO2% (BldA) [Mass fraction] 98 % Megan Cash APRN-TREASURY SPECIALIST Work Phone: [facility] 05-18-2023 19:08-0400 Systolic blood pressure 104 mm[Hg] Megan Cash APRN-TREASURY SPECIALIST Work Phone: [facility] 05-14-2023 18:39-0500 Body mass index (BMI) [Ratio] 57.5 kg/m2 Butch Furlong DO Work Phone: [facility] 05-14-2023 18:39-0500 Body temperature 97.59 [degF] Butch Furlong DO Work Phone: [facility] 05-14-2023 18:39-0500 Body weight 142.61 kg Butch Furlong DO Work Phone: [facility] 05-14-2023 18:39-0500 Diastolic blood pressure 68 mm[Hg] Butch Furlong DO Work Phone: [facility] 05-14-2023 18:39-0500 Heart rate 90 /min Butch Furlong DO Work Phone: [facility] 05-14-2023 18:39-0500 Respiratory rate 18 /min Butch Furlong DO Work Phone: [facility] 05-14-2023 18:39-0500 SaO2% (BldA) [Mass fraction] 98 % Butch Furlong DO Work Phone: [facility] 05-14-2023 18:39-0500 Systolic blood pressure 110 mm[Hg] Butch Furlong DO Work Phone: [facility] 04-30-2023 17:38-0500 Body height 157.5 cm Butch Furlong DO Work Phone: [facility] 04-30-2023 17:38-0500 Body mass index (BMI) [Ratio] 56.53 kg/m2 Butch Furlong DO Work Phone: [facility] 04-30-2023 17:38-0500 Body temperature 97.81 [degF] Butch Furlong DO Work Phone: [facility] 04-30-2023 17:38-0500 Body weight 140.2 kg Butch Furlong DO Work Phone: [facility] [employer] [facility] 04-30-2023 17:38-0500 Diastolic blood pressure 62 mm[Hg] Butch Furlong DO Work Phone: [facility] 04-30-2023 17:38-0500 Heart rate 106 /min Butch Furlong DO Work Phone: [facility] [employer] [facility] [facility] 04-30-2023 17:38-0500 Respiratory rate 20 /min Butch Tonglong DO Work Phone: [facility] [employer] [facility] 04-30-2023 17:38-0500 SaO2% (BldA) [Mass fraction] 91 % Butch Tonglong DO Work Phone: [facility] [employer] [facility] [employer] [facility] 04-30-2023 17:38-0500 Systolic blood pressure 99 mm[Hg] Butch FurPhilo Mediang DO Work Phone: [facility] Encounters Encounter Date Encounter Type Care Provider Facility Start: 09-03-2023 End: 09-03-2023 ambulatory July Morrison RT(R) Radiology Comment on above: Radiology XR Start: 09-03-2023 End: 09-03-2023 Patient encounter procedure July Morrison RT(R) Radiology Comment on above: Primary osteoarthrit is of both hips (Primary Dx); Trochanteric bursitis of both hips; Pain in left hip; Pain in right hip Start: 08-30-2023 End: 08-30-2023 ambulatory EMILY BECKER Not Available Start: 07-29-2023 End: 07-29-2023 ambulatory TRAV VALDOVINOS Not Available Start: 07-08-2023 End: 07-08-2023 ambulatory CHEL [facility] Start: 2023 End: 2023 ambulatory TRAV VALDOVINOS Not Available Start: 06-23-2023 Non-patient / Non-visit [facility] Work Phone: Start: 06-22-2023 End: 06-25-2023 Evaluation and management of inpatient [facility] Work Phone: Start: 06-22-2023 End: 06-22-2023 Emergency department patient visit BUTCH OLIVA [facility] Start: 06-22-2023 ambulatory NON STAFF Facility:[facility] Start: 06-03-2023 ambulatory Butch robins DO Work Phone: [facility] Comment on above: Pedal edema (Primary Dx); Intertrigo; Morbid obesity (CMS-HCC) Start: 05-28-2023 ambulatory Butch robins DO Work Phone: [facility] Comment on above: Bilateral primary os teoarthritis of hip (Primary Dx); Muscle weakness (generalized); Other abnormalities of gait and mobility; Spinal stenosis of lumbar region, unspecified whether neurogenic claudication present Start: 05-18-2023 Continuing Care Megan ga APRN-TREASURY SPECIALIST Work Phone: [facility] Comment on above: Spinal stenosis of l umbar region, unspecified whether neurogenic claudication present (Primary Dx); Bipolar affective disorder, current episode mixed, current episode severity unspecified (CMS-HCC); Primary osteoarthritis of both hips; Schizophrenic disorder (CMS-HCC); Class 3 severe obesity due to excess calories with serious comorbidity and body mass index (BMI) of 60.0 to 69.9 in adult (CMS-HCC); Full code status Start: 05-14-2023 Continuing Care Butch robins DO Work Phone: [facility] Comment on above: Spinal stenosis of l umbar region, unspecified whether neurogenic claudication present (Primary Dx); Bilateral primary osteoarthritis of hip; Muscle weakness (generalized); Other abnormalities of gait and mobility; Bipolar affective disorder, current episode mixed, current episode severity unspecified (CMS-HCC); Schizophrenic disorder (CMS-HCC) Start: 04-30-2023 Continuing Care Butch robins DO Work Phone: [facility] Comment on above: Spinal stenosis of l umbar region, unspecified whether neurogenic claudication present (Primary Dx); Syphilis (acquired); Bipolar affective disorder, current episode mixed, current episode severity unspecified ([facility]); Anxiety; Primary osteoarthritis of both hips; TB lung, latent; Schizophrenic disorder ([facility]); Class 3 severe obesity due to excess calories without serious comorbidity with body mass index (BMI) of 50.0 to 59.9 in adult ([facility]) Start: 04-26-2023 Registered [facility] Start: 07-23-2022 ambulatory DEMETRIA SHAMMO Facility:[facility] 1 Start: 06-30-2022 ambulatory DEMETRIA SHAMMO Facility:[facility] 1 Start: 06-16-2022 End: 06-17-2022 ambulatory DEMETRIA SHAMMO Facility:[facility] Start: 06-09-2022 ambulatory DEMETRIA SHAMMO Facility:[facility] 1 Start: 06-02-[address] EMILY BECKER . Facili ty:[facility]1 Start: 05-29-2022 Encounter for genera l adult medical examination without abnormal findings DEMETRIA SHAMMO [facility] Start: 05-28-2022 End: 05-28-[address] EMILY [...] 05-21-[address] JEAN CARLOS MEDINA Facility:[facility] Procedures Date Procedure Procedure Detail Performing Clinician Start: 09-03-2023 Arthrocentesis aspir &/inj major jt/bursa w/o us Tang Sloan PA-C Work Phone: Plan of Treatment Date Care Activity Detail Author Start: 05-28-2032 DTaP,Tdap and Td Vaccines (2 - Td or Tdap) DTaP,Tdap and Td Vaccines (2 - Td or Tdap) [facility] Start: 05-28-2032 Urine microalbumin profile DTaP,Tdap,Td Vaccine (2 - Td or Tdap) [facility] Start: 03-09-2026 Screening for malign ant neoplasm of cervix Cervical Cancer Screening [facility] Start: 05-27-2024 Adult BMI Screening Adult BMI Screen ing [facility] Start: 05-23-2024 Tobacco Screening Tobacco Screening [facility] Start: 05-20-2024 Tobacco Screening Tobacco Screening [facility] Start: 05-17-2024 Adult BMI Screening Adult BMI Screen ing [facility] Start: 04-30-2024 Adult BMI Screening Adult BMI Screen ing [facility] Start: 04-30-2024 Tobacco Screening Tobacco Screening [facility] Start: 01-31-2024 Tobacco Screening Tobacco Screening [facility] Start: 11-07-2023 Influenza vaccination [facility] Start: 09-30-2023 End: 09-30-2023 Patient encounter procedure 09/30/2023 9:15 AM EDT Office Visit Orthopaedics [address] [place] [address] Edward Arita, DO [address] [place] [address] Bilateral USGI Hip injections Orthopaedics Comment on above: Bilateral USGI Hip i njections Start: 06-25-2023 [facility] Start: 06-24-2023 Referral to plate painter [facility] Start: 06-24-2023 Referral to clinical head of marketing [facility] Start: 06-22-2023 Hospital admission [facility] Start: 06-22-2023 [facility] Start: 03-08-2023 Behavioral Health Screening Behavioral Health Screening [facility] [facility] Start: 11-06-2022 Covid-19 Vaccine ( season) Covid-19 Vaccine ( season) [facility] Start: 11-06-2022 Influenza vaccination Influenza Vacc ine [facility] Start: 2019 Screening for malign ant neoplasm of breast Mammogram Screening [facility] Start: 06-28-2000 Screening for malign ant neoplasm of cervix Pap Smear [facility] Start: 06-28-1998 Hepatitis B Vaccine (1 of 3 - 19+ 3-dose series) Hepatitis B Vaccine (1 of 3 - 19+ 3-dose series) [facility] Start: 06-28-1997 Adult BMI Follow Up Plan Adult BMI Follow Up Plan [facility] Start: 06-28-1997 HIV screening HIV Screening [facility] Start: 1991 Depression Screening Depression Scre ening [facility] Start: 06-28-1985 Pneumococcal vaccination Pneumococcal Vaccine (1 of 2 - PCV) [facility] Start: 1979 Tobacco Counseling Tobacco Counselin g [facility] Patient Education Depression, Ad ult (DC) [facility] Behavior[facility] Health [place] Instructions [facility] Work Phone: Patient referral [facility] Work Phone: Immunizations Immunization Date Immunization Notes Care Provider Fa natalie 05-28-2022 tetanus toxoid, redu radha diphtheria toxoid, and acellular pertussis vaccine, adsorbed Butch Oliva DO Work Phone: [facility] Payers Date Payer Category Payer Private Health Insurance [employer] MEDICAID [facility] [id number] 2023-Present [address] [address] [place] [address] Medicaid [id number] 2023 Self-pay 2022 Medicaid [facility] MEDICAID [id number] 2022-Present [phone] [address] [place] [address] [id number] 2006 Medicaid [id number] 1980 Unknown [id number] 2.16.840.1.542386.3.579.2.5 93 1979 Unknown [id number] 2.16.840.1.140967.3.579.2.5 93 1979 Unknown [id number] 2.16.840.1.206142.3.579.2.5 93 1979 Unknown [id number] 2.16.840.1.969277.3.579.2.5 93 1979 Unknown [id number] 2.16.840.1.170941.3.579.2.5 93 1979 Unknown [id number] 2.16.840.1.117366.3.579.2.5 93 1979 Unknown [id number] 2.16.840.1.889808.3.579.2.5 93 1979 Unknown [id number] 2.16.840.1.801790.3.579.2.5 93 1979 Unknown [id number] 2.16.840.1.124075.3.579.2.5 93 1979 Unknown [id number] 2.16.840.1.719308.3.579.2.5 93 1979 Unknown [id number] 2.16.840.1.118848.3.579.2.5 93 1979 Unknown [id number] 2.16.840.1.795696.3.579.2.1 286 1979 Unknown [id number] 2.16.840.1.990160.3.579.2.1 286 1979 Unknown [id number] 2.16.840.1.525187.3.579.2.1 259 1979 Unknown [id number] 2.16.840.1.425778.3.579.2.1 259 1979 Unknown [id number] 2.16.840.1.439806.3.579.2.1 259 1979 Unknown [id number] 2.16.840.1.191000.3.579.2.1 259 Unknown [id number] 2.16.840.1.684293.3.579.2.5 31 Unknown [id number] 2.16.840.1.285379.3.579.2.5 31 Social History Date Type Detail Facility Start: 05-17-2007 End: 04-30-2023 Tobacco smoking status NHIS Smokes tobacco daily [facility] Start: 03-08-1989 History of tobacco use Cigarette Smoker [facility] Start: 04-30-2023 End: 09-03-2023 Cigarettes smoked current (pack per day) - Reported 0.3 [facility] History of tobacco use Passive smoker [facility] Start: 04-30-2023 Tobacco use and exposure Smokeless tobacco non-user [facility] Start: 04-30-2023 End: 05-24-2023 Alcohol intake Ex-drinker (finding) [facility] Start: 04-30-2023 End: 09-03-2023 Tobacco use panel [facility] In the past 12 month s, has lack of transportation kept you from medical appointments or from getting medications? Yes [facility] Start: 04-30-2023 Tobacco Comment Started smoking at 9 years of age [facility] Start: 1980 Sex Assigned At Not on file [facility] Start: 06-24-2023 Tobacco smoking status NHIS Smoker (finding) [facility] Start: 1980 Sex Assigned At Female [facility] Start: 07-07-2010 Alcohol intake Current non-drinker of alcohol (finding) [facility] Tobacco smoking stat us NHIS Tobacco smoking consumption unknown [facility] Goals Date Patient Goal Desired Activity /State Functional Status Date Assessment Result Facility 06-25-2023 Functional status Patient at Baseline [facility] Work Phone: Mental Status Date Assessment Result Facility 06-25-2023 Cognitive function Cognitive Sta tus Patient at Baseline [facility] Work Phone: Clinical Notes 05-21-2022 to 09-03-2023 Patient InstructionsTang Sloan PA-C - 09/03/2023 9:00 AM July Arrieta RT(R) - 09/03/2023 8:51 AM EDT Note Date & Type Note Facility 09-03-2023 Instructions Tang Sloan PA-C - 09/03/2023 9:54 AM EDT POST INJECTION CARE: -A normal response to the injection is decreased pain from the lidocaine (numbing medication) for several hours followed by increased pain for hours to several days. The cortisone will usually kick in within 2-3 days but can take up to 10 days to have the full effect. -Avoid heavy activity until pain subsides. -Ice 10-15min several times for the next day or so or until pain subsides. -tylenol for pain -if you experience redness or flushing sensation in your face and neck, rest, apply cold compress, or try a benadryl. This reaction is normal and should lesson over 24 hours. -every injection carries the risk of infection. If you experience increased redness, swelling, pain, fever, chills, or other concern for infection pleasec ontact our office immediately. If night or weekend, go to nearest emergency room. PLEASE BE AWARE THAT CORTISONE INJECTIONS WILL RAISE YOUR BLOOD SUGAR AND WHITE BLOOD CELL COUNT (WBC) FOR SEVERAL DAYS. *DIABETICS SHOULD NOT ADJUST THEIR MEDICATIONS TO THE INCREASE, THIS IS VERY TEMPORARY AND ADDING MORE MEDICATION/INSULIN CAN MAKE YOUR BLOOD SUGARS DROP LOW WHICH IS MUCH MORE DANGEROUS. documented in this encounter [facility] 09-03-2023 History of Presen t illness Narrative Associated Order(s): Large Joint Arthro/Inj: R greater trochanteric bursa Post-Procedure Diagnose(s): Trochanteric bursitis of both hips Images from the original note were not included. SERVICE DATE: September 03, 2023 PCP: No primary care provider on file. Patient was self-referred. Subjective Patient ID: Jennifer is a 43 year old female. Chief Complaint: Patient presents with: Right Hip - New, Pain Left Hip - New, Pain PAIN EVALUATION 09/03/2023 0857 Pain Level: 8 Pain Location: -- bilateral hips Description: -- pain varies Duration Amount of Time: 3 Duration Units: Years Frequency: Continuous Intervention/Comfort measure: Medication has had some therepy Patient is a 43-year-old 5 foot 2 inch 320 pound wheelchair-bound female who is here with complaints of bilateral hip pain with the right more symptomatic than the left. She reports that she moved here from [place] and moved in with her sisters in the last few years but moved into a usp in the last year when she could not get around or do self-care. She is now living in a usp facility. Has significant pain in her back as well as her hips. Scheduled to see her back neurosurgeon in September for those complaints. As far as her hips are concerned she has pain at the lateral hip and buttocks and also gets lateral hip pain down to the shins. Some pain in the groin as well. This has been going on for about 3 years. No particular aggravating incident or injury. She notes her symptoms are irritated when laying on her sides and she cannot lay on her back due to her back pain. She cannot stand upright due to hip pain which has been progressively worse for about the last year and 1/2 to 2 years. She has not been ambulating since January. She does get numbness at the lateral hips and thighs which is been going on for about 4 to 5 years. She takes ibuprofen, Percocet as needed, gabapentin and methadone all given at the usp without great pain control. She has done physical therapy as well. She has schizoaffective disorder but otherwise is fairly healthy. She notes that her weight was 268 when she entered the usp but is now 320. Pain level is a continuous 8/10. She has sought other treatment but been told that she is not a surgical candidate and there was anything they can do for her. TREATMENTS PRIOR TO INITIAL CONSULT: Oral NSAIDS Right Physical Therapy Left Physical Therapy Review of Systems Constitutional: Negative for fever. HENT: Negative for congestion. Respiratory: Negative for cough and shortness of breath. Gastrointestinal: Negative for abdominal pain. Endocrine: Negative for diabetic associated symptoms. Skin: Negative for color change and rash. Neurological: Positive for numbness. Decreased sensation in the lateral thighs Musculoskeletal: Negative for joint swelling. All other systems reviewed and are negative. ACTIVE PROBLEM LIST Obesity Pain Cellulitis and Abscess of Trunk Primary Osteoarthritis of Both Hips Trochanteric Bursitis of Left Hip PAST MEDICAL HISTORY Diagnosis Date Cellulitis and abscess of trunk 2010 Herpes simplex Obesity PAST SURGICAL HISTORY Procedure Laterality Date PAST SURGICAL HISTORY OF 1994 EXCISION OF LINGUAL TONSIL PAST SURGICAL HISTORY OF 1999 ECTOPIC PAST SURGICAL HISTORY OF 2004 SECTION PAST SURGICAL HISTORY OF 2010 I&D ABDOMINAL WALL ABSCESS FAMILY HISTORY Problem Relation Age of Onset Cervical Cancer Maternal Grandmother Cervical Cancer Maternal Aunt Social History Tobacco Use Smoking status: Every Day Packs/day: 25.00 Years: 15.00 Additional pack years: 0.00 Total pack years: 375.00 Types: Cigarettes Substance Use Topics Alcohol use: No ALLERGIES Allergen Reactions Flagyl [Metronidazo* Hives Zofran [Ondansetron* Itching MEDICATIONS: diphenhydrAMINE 25 mg ORAL capsule Take 1 capsule by mouth every 6 hours as needed for Itching/Rash. docusate sodium 100 mg ORAL capsule Take 1 capsule by mouth twice daily as needed for Constipation. acetaminophen-codeine 300-30 mg ORAL per tablet Take 1 tablet by mouth as needed (for pain on dressing change.). linezolid 600 mg ORAL tablet Take 1 tablet by mouth every 12 hours. Allergies, medications, past surgical history, family history and past medical history were reviewed per this encounter. Objective Right Hip Exam Tenderness The patient is experiencing tenderness in the greater trochanter (Significant). Range of Motion Abduction: 5 Adduction: 10 (Lateral hip pain and extreme) Extension: -30 Flexion: 80 External rotation: 30 Internal rotation: 0 Muscle Strength Abduction: 5/5 Adduction: 5/5 Flexion: 4/5 Other Erythema: absent Sensation: decreased (Decreased sensation at the lateral thighs) Pulse: present Comments: Motor is intact bilateral lower extremities. Significant tenderness over lower lumbar spine. Can stand with support in front of her but with her hip and back flexed at at least 30 degrees at best. Left Hip Exam Tenderness The patient is experiencing tenderness in the greater trochanter. Range of Motion Abduction: 10 Adduction: 10 (Lateral hip pain and extreme) Extension: -30 Flexion: 90 External rotation: 30 Internal rotation: 0 Muscle Strength Abduction: 5/5 Adduction: 5/5 Flexion: 4/5 Other Erythema: absent Sensation: decreased (Decreased sensation at the lateral thighs) Pulse: present RADIOGRAPHS: X-rays of the right and left hips and pelvis in today were personally interpreted and reviewed with the patient and show advanced degenerative arthritis of both hips. Assessment/Plan ASSESSMENT Diagnosis (M16.0) Primary osteoarthritis of both hips (primary encounter diagnosis) Plan: CONSULT TO PHYSICAL THERAPY (M70.61, M70.62) Trochanteric bursitis of both hips Plan: CONSULT TO PHYSICAL THERAPY, Large Joint Arthro/Inj: R greater trochanteric bursa (M25.552) Pain in left hip Plan: XR HIP BILATERAL 5V PEL/AP/LAT EACH HIP (M25.551) Pain in right hip Plan: XR HIP BILATERAL 5V PEL/AP/LAT EACH HIP Office Visit on 09/03/23 Large Joint Arthro/Inj: R greater trochanteric bursa XR HIP BILATERAL 5V PEL/AP/LAT EACH HIP CONSULT TO PHYSICAL THERAPY PLAN We discussed that she does have significant degenerative arthritis of both hips as well as some bursitis in both hips but low back dysfunction is causing some of her pain and numbness down the legs. She is not a surgical candidate at the present time due to her weight and current functional status but we can work towards improving these. Suggest that we inject that trochanteric bursitis on the more symptomatic right hip today to help decrease some of her discomfort. Will also arrange for intra-articular injection under ultrasound in the near future. Will then take advantage of pain relief to help improve her mobility and get her walking again with a walker as the goal. She is seeing a neurosurgeon in September for her back which should help sort this out. We also discussed the importance of weight loss as she had been 268 pounds when she entered the usp and is now 320. She needs to at least get back to where she was. Some of her psychiatric medicines do not help with this as they can cause weight gain but she needs to work at it. She agrees to proceed with this plan. Prescription for physical therapy was dispensed today. Will make arrangements for her bilateral hip injections. Follow-up as needed. Large Joint Arthro/Inj: R greater trochanteric bursa Informed Consent Consent Obtained: Verbal [place] Protocol A moment to CARE was completed. SIGN IN Personnel directly involved with the procedure wore the appropriate PPE. Special Equipment: N/A Patient/Surrogate Stated/Verified: Patient name, Date of , Relevant allergies and Intended procedure TIME OUT Intended patient and procedure match the source document(s). Consent documented and matches the intended procedure. Relevant labs, photos, and/or imaging studies have been reviewed. Correct side/site marked and visible. Medications required for procedure verified. No fire risk assessment and interventions applicable. No implant(s) inserted. 09/03/2023 9:56 AM The procedure site was prepped in the usual sterile fashion. Site: R greater trochanteric bursa Medications: 80 mg triamcinolone acetonide 40 mg/mL Anesthetics: 8 mL lidocaine (PF) 10 mg/mL (1 %) Outcome: Tolerated well, no immediate complications Post-injection instructions were reviewed with the patient and the patient voiced understanding of these instructions. SIGN OUT No specimen collected. No instruments, equipment or retained foreign bodies applicable. Post-procedure follow-up management communicated and Plan of Care Visit completed when applicable Third alliance party verified by Monae Vaca MA. FOLLOW-UP: Return for appt for bilat hip inj with Ultrasound. SIGNATURE: Tang Sloan PA-C PATIENT NAME: Jennifer Mendes DATE: September 03, 2023 TIME: 9:09 AM documented in this encounter [facility] 09-03-2023 Note HNO ID: [id number] Author: JULY MORRISON RT(Panfilo) Service: ? Author Type: Technologist Type: Progress Notes Filed: 09/03/2023 08:51 Note Text: Radiology Service Progress Note PATIENT NAME: Jennifer Mendes DATE OF SERVICE: September 03, 2023 TIME: 8:51 AM PATIENT IDENTITY VERIFICATION COMPLETED USING TWO (2) IDENTIFIERS: Name and Date of confirmed by patient verbally. FALL SCREENING: Has the patient had 2 falls in the last year or 1 fall with injury or currently using an Ambulatory Assistive Device (Walker, Cane, Wheelchair, Crutches, etc.)? Yes, Patient High Risk for Falls What interventions were put in place to prevent falls during this visit? Yellow Falls Risk Wristband Applied, Instructed Patient to Call for Help if Needed, Offered Assistance with Transfers/Clothing, Instructed Patient to Remain Seated (Not on Exam Table) Until Exam, and Increased Observations by Caregivers PATIENT GENDER DATA: Female. status: : No status: N/A PATIENT RELEVANT IMPLANT DATA REVIEWED: Not Applicable PATIENT PRESENTS WITH AN IMPLANTABLE OR ATTACHED SPECIFICATION MANAGER: No RADIOLOGY DEPARTMENT: General X-ray: Exam(s) Completed: Pelvis X-Ray: Pelvis with Hip Bilateral PERIPHERAL IV DATA: Not applicable SIGNED BY: SURAJ QuinonezR) September 03, 2023 8:51 AM [facility] 09-03-2023 History of Presen t illness Narrative Radiology Service Progress Note PATIENT NAME: Jennifer Mendes DATE OF SERVICE: September 03, 2023 TIME: 8:51 AM PATIENT IDENTITY VERIFICATION COMPLETED USING TWO (2) IDENTIFIERS: Name and Date of confirmed by patient verbally. FALL SCREENING: Has the patient had 2 falls in the last year or 1 fall with injury or currently using an Ambulatory Assistive Device (Walker, Cane, Wheelchair, Crutches, etc.)? Yes, Patient High Risk for Falls What interventions were put in place to prevent falls during this visit? Yellow Falls Risk Wristband Applied, Instructed Patient to Call for Help if Needed, Offered Assistance with Transfers/Clothing, Instructed Patient to Remain Seated (Not on Exam Table) Until Exam, and Increased Observations by Caregivers PATIENT GENDER DATA: Female. status: : No status: N/A PATIENT RELEVANT IMPLANT DATA REVIEWED: Not Applicable PATIENT PRESENTS WITH AN IMPLANTABLE OR ATTACHED SPECIFICATION MANAGER: No RADIOLOGY DEPARTMENT: General X-ray: Exam(s) Completed: Pelvis X-Ray: Pelvis with Hip Bilateral PERIPHERAL IV DATA: Not applicable SIGNED BY: RT Devi(R) September 03, 2023 8:51 AM documented in this encounter [facility] 06-25-2023 Discharge summary Note Date/Time June 25, 2023 7:11am [facility] [address] [place] [address] Discharge Summary Signed Patient: Jennifer Mendes MR#: [id number] : 1980 Acct:[id number] Age/Sex: 42 / F Adm Date: 4 Loc: Room: [address] [place] [address]: Joseph Tello MD Copies to: [...] unit milieu. She has been working with outpatient case manager on her aftercare she agreed [...] 99 Discharge Plan Discharge Plan Patient Disposition: terminal make up operator [place] Care/Resident Activity: With Assist Diet: Regular Additional Instructions: Important Contact Information You can call [facility] at [phone] any time day or night if you have emergent questions or question regarding discharge instructions. If at any time you are feeling an increase inyour psychiatric symptoms, call your physician or behavioral healthcare provider. If any time you have thoughts of harming yourself or others contact one of the following: Call 98-8 (available 28/09) Crisis Text Line (available 28/09) text 4HOPE to [phone] [facility] Hope Line (available 8 a.m. Midnight) call [phone] ([phone]) Prescriptions: Continued aripiprazole 20 mg tablet 20 [...] 0711 [facility] Work Phone: 1(239) 973-616504-19-2024 Consult note Author Linsey Pradhan [facility] June 24, 2023 11:55pm Note Date/Time June 24, 2023 12: 47pm [facility] [address] [place] [address] Hospitalist Consult Note Signed Patient: Jennifer Mendes MR#: [id number] : 1980 Acct:[id number] Age/Sex: 42 / F Adm Date: 4 Loc: 1S Room: [address] [place] [address] Type: ADM IN Attending Dr: Joseph Tello [...] negative unless noted in the HPI below [facility] Source[facility] Records Reviewed Social History Smoking [...] 06/24/23 08:46 Clonazepam 1 Mg Tablet PO 12/19/23 21:59 1 mg TID SUSANNA Administration Duloxetine [...] <Electronically signed by Linsey Pradhan MD> 06/24/23 1702 [facility] Work Phone: 1(310) 780-742604-18-2024 Progress note Author Joseph martinez [facility] June 24, 2023 6:40am Note Date/Time June 24, 2023 6:4 0am [facility] [address] [place] [address] Psychiatry Progress Note Signed Patient: Jennifer Mendes MR#: [id number] : 1980 Acct:[id number] Age/Sex: 42 / F Adm Date: 4 Loc: Room: [address] [place] [address] Type : ADM IN Attending Dr: Joseph [...] signed by Joseph Tello MD> 06/24/23 0640 [facility] Work Phone: 1(965) 498-823404-17-2024 History and physical note Author Joseph martinez [facility] June 23, 2023 9:03am Note Date/Time June 23, 2023 8:5 8am [facility] [address] [place] [address] Psychiatry H&P Signed Patient: Jennifer Mendes MR#: [id number] : 1980 Acct:[id number] Age/Sex: 42 / F Adm Date: 4 Loc: 1S Room: [address] [place] [address] Type: ADM IN Attending Dr: Joseph eTllo MD Copies to: NON STAFF Joseph Tello MD~ Date of Service: 06/23/2023 HPI History of Present Illness History of present illness: Ms. Mendes is a 42 year old [...] disorder: (3) Chronic pain: Plan Admit to 1S for management of depression and to ensure [...] 0903 [facility] Work Phone: 1(291) 755-258303-28-2024 History of Present illness Narrative* Butch Oliva, DO - 06/03/2023 9:42 PM EDT Patient Name: Jennifer Mendes Date of : 1980 Date of Service: 06/03/2023 Facility: [facility] Type of Visit: Skilled Visit Subjective Jennifer Mendes is a 42 y.o. female seen today at long term facility for acute visit. Jennifer She was recently discharged from therapy. Her participation was improving but she has seemed to reach her max potential. Nursing reports a couple new problems. She has a lot of swelling in her legs. She admitted to shortness of breath the night before and needed a breathing treatment. Patriciaalso has a rash under her breasts which [...] BY: Butch Oliva DO [facility] History of Present illness Narrative* Butch Oliva DO - 05/28/2023 11:59 PM EDT Patient Name: Jennifer Mendes Date of : 1980 Date of Service: 05/28/2023 Facility: [facility] Type of Visit: Skilled Visit Subjective Jennifer Mendes is a 42 y.o. female seen today at long term facility for therapy visit. Jennifer is in [...] BY: Butch Oliva DO [facility] History of Present illness Narrative* Megan Cash APRN-THAIS - 05/18/2023 11:59 PM EDT Images from the original note were not included. Patient Name: Jennifer Mendes Date of : 1980 Date of Service: 05/18/2023 Facility: [facility] Type of Visit: Skilled Visit Subjective Jennifer Mendes is a 42 y.o. female seen today at long term facility for Chief Complaint Patient presents with Retirement . Is attending physical therapy. States sometimes [...] Anemia Anxiety Arthritis Back pain Bipolar disorder ([facility]) Depression Latent tuberculosis infection Obesity Pneumonia Substance abuse ([facility]) Past Surgical History: Procedure Laterality Date FRACTURE [...] current episode mixed, current episode severity unspecified ([facility]) 3. Primary osteoarthritis of both hips 4. Schizophrenic disorder ([facility]) 5. Class 3 severe obesity due to excess calories with serious comorbidity and body mass index (BMI)of 60.0 to 69.9 in adult ([facility]) 6. Full code status Spinal stenosis of lumbar region Awaiting Medicaid approval to pursue pain management. Referral done, sent to [facility]. -Pain controlled with Oxycodone, [...] Napoles APRN-CNP 05/24/23 1753 documented [facility] History of Present illness Narrative* Butch Oliva, - 05/14/2023 6:37 PM EST Patient Name: Jennifer Mendes Date of : 1980 Date of Service: 05/14/2023 Facility: [facility] Type of Visit: Skilled Visit Subjective Jennifer Mendes is a 42 y.o. female seen today at long term facility for therapy visit. Jennifer is in [...] BY: Butch Oliva DO documented in this encounterW[facility] History of Present illness Narrative* Butch Oliva DO - 04/30/2023 5:37 PM EST Patient Name: Jennifer Mendes Date of : 1980 Date of Service: 04/30/2023 Facility: [facility] Type of Visit: Admission H&P Subjective Jennifer Mendes is a 42 y.o. female seen today at long term facility for admission H&P. jennifer presents to [facility] from the [facility] where she was treated for intractable [...] scheduled to see a neurosurgeon up in [place] but then her insurance lapsed and the [...] Abdominal wall cellulitis Anemia Anxiety Bipolar disorder ([facility]) Depression Latent tuberculosis infection Pneumonia Past Surgical [...] current episode mixed, current episode severity unspecified ([facility]) 4. Anxiety 5. Primary osteoarthritis of both hips 6. TB lung, latent 7. Schizophrenic disorder ([facility]) 8. Class 3 severe obesity due to excess calories without serious comorbidity with body mass index (BMI) of 50.0 to 59.9 in adult ([facility]) Admit to [facility] for therapy. She is motivated to improve. She will need pain management and maybe neurosurgery. Fair to good rehab potential. Full code. Continue medications from the hospital. She was treated for TB with INH per pt. Continue doxycycline for syphilis. ELECTRONICALLY SIGNED BY: Butch Oliva DO documented in this encounterWright-Patterson [facility] Center04-11-2023 NoteCONSULTATION CONSULTATION DATE: 06/16/2022 TO: TRENTON Johnston [...] our patients to inform us about any [id number] medications or herbal remedies/nutritional supplements/alternative remedies. 2. [...] treatment options with their primary care provider.[facility] [id number] NotePROCEDURE: XR HIP LT 2 3V W PELVIS HISTORY: Pain ; left hip pain after falling COMPARISON: None. FINDINGS: BONES:Complete loss of the hip joint spaces bilaterally with subchondral sclerosis, [id number]-[id number] articulation, and remodeling of the femoral heads and acetabulum. SOFT TISSUES:No visible soft tissue swelling. EFFUSION:None visible. OTHER: Negative. IMPRESSION: 1. No acute bone abnormality. 2. Advanced degenerative changes of hip joints bilaterally. Electronically authenticated by: JEAN CARLOS MEDINA Date: 2022-05-21 11:47[facility]* Diagnosis Spinal stenosis of lumbar region, unspecified whether neurogenic claudication present- Primary Syphilis (acquired) Unspecified syphilis Bipolar affective disorder, current episode mixed, current episode severity unspecified ([facility]) Anxiety Anxiety state, unspecified Primary osteoarthritis of both hips TB lung, latent Schizophrenic disorder ([facility]) Unspecified schizophrenia, unspecified condition Class 3 severe obesity due to excess calories without serious comorbidity with body mass index (BMI) of 50.0 to 59.9 in adult ([facility]) documented in this encounter [facility] Diagnosis Spinal stenosis of lumbar region, unspecified whether neurogenic claudication present- Primary Bilateral primary osteoarthritis of hip Muscle weakness (generalized) Other abnormalities of gait and mobility Bipolar affective disorder, current episode mixed, current episode severity unspecified ([facility]) Schizophrenic disorder ([facility]) Unspecified schizophrenia, unspecified condition [facility] Diagnosis Spinal stenosis of lumbar region, unspecified whether neurogenic claudication present- Primary Bipolar affective disorder, current episode mixed, current episode severity unspecified ([facility]) Primary osteoarthritis of both hips Schizophrenic disorder ([facility]) Unspecified schizophrenia, unspecified condition Class 3 severe obesity due to excess calories with serious comorbidity and body mass index (BMI) of 60.0 to 69.9 in adult ([facility]) Full code status documented [facility] this encounter [facility]* Diagnosis Bilateral primary osteoarthritis of hip- Primary Muscle weakness (generalized) Other abnormalities of gait and mobility Spinal stenosis of lumbar region, unspecified whether neurogenic claudication present documented [facility] encounter [facility]* Diagnosis Pedal edema- Primary Edema Intertrigo Other specified erythematous condition Morbid obesity ([facility]) Morbid obesity [facility] Diagnosis Onset Date Resolution Status Chronic pain acute Generalized anxiety disorder acute Major depressive disorder, recurrent, moderate acute [facility] Work Phone: Evaluation note* Diagnosis Primary osteoarthritis of both hips- Primary Primary localized osteoarthrosis, pelvic region and thigh Trochanteric bursitis of both hips Enthesopathy of hip region Pain in left hip Pain in joint, pelvic region and thigh Pain in right hip Pain in joint, pelvic region and thigh Pain in left hip Pain in joint, pelvic region and thigh Pain in right hip Pain in joint, pelvic region and thigh documented in this encounter [facility] HospitalInstructionsNot on filedocumented in this encounterWright-Patterson Medical CenterInstructions* Attachments The following attachments cannot be sent through Care Everywhere. * Bipolar disorder ([place]or[place]) documented in this encounterOhio[facility] SystemInstructionsNot on file documented in this encounterOhioHealth [facility] SystemInstructionsNot on file documented in this encounterWright-Pat[facility] Center Summary Purpose Family History No Family History Records FoundNo Family History Records FoundNo Family History Records FoundNo Family History Records FoundNo Family History Records Found Advance Directives Latest Code Status on File Code Status Date Activated Date Inactivated Comments Full Code 01/24/2023 10:50 AM 02/05/2023 6:22 PM Advance Directive Response Recorded Date/ Time Advance Directives No June 06 9:38am Chief Complaint and Reason for Visit Chief Complaint bh Schizoaffective disorder Schizoaffective disorder Reason for Visit Chronic pain Generalized anxiety disorder Major depressive disorder, recurrent, moderate Reason for Referral Specialty Diagnoses / Procedures Referred By Nazario t Referred To Contact [facility] Diagnoses Primary osteoarthritis of both hips Trochanteric bursitis of both hips Procedures CONSULT TO PHYSICAL THERAPY PHYSICAL THERAPY EVALUATION HIGH COMPLEX 45 MINS Tang Sloan PA-C [address] [place] [address] [facility] [place] [address] [place] [address] Referral ID Status Reason Start Date Expiration Date Visits Requested Visits Authorized [id number] Pending Review Auto-Generat ed Referral 09/03/2023 09/02/2024 1 1 Specialty Diagnoses / Procedures Referred By Contritu t Referred To Contact XR IMAGING Diagnoses Pain in left hip Pain in right hip Procedures XR HIP BILATERAL 5V PEL/AP/LAT EACH HIP RADEX HIPS BILATERAL WITH PELVIS MINIMUM 5 VIEWS Tang Sloan PA-C [address] [place] [address] [place] [address] Referral ID Status Reason Start Date Expiration Date V isits Requested Visits Authorized [id number] Closed Auto-Generate d Referral 08/30/2023 09/28/2024 1 1 Additional Source Comments INFORMATION SOURCE (unrecogn ized section and content) DATE CREATED AUTHOR 07/08/2022 [facility] DATE CREATED AUTHOR AUTHOR'S ORGANIZ ATION 07/09/2023 [facility] DATE CREATED AUTHOR AUTHOR'S ORGANIZ ATION 08/31/2023 [facility] EPIC DATE CREATED AUTHOR AUTHOR'S ORGANIZ ATION 09/03/2023 [facility] DATE CREATED AUTHOR AUTHOR'S ORGANIZ ATION 09/05/2023 [facility] Care Teams (unrecognized sec tion and content) Power Press Tender Relationship Specialty Start Date End Date No Pcp, [place] [address] PCP - General Family Medicine 10/30/22 Power Press Tender Relationship Specialty Start Date End Date No Pcp, [place] [address] PCP - General Family Medicine 10/30/22 Power Press Tender Relationship Specialty Start Date End Date No Pcp, [place] [address] PCP - General Family Medicine 10/30/22 Power Press Tender Relationship Specialty Start Date End Date No Pcp, [place] [address] PCP - General Family Medicine 10/30/22 Power Press Tender Relationship Specialty Start Date End Date No [place]cp[place] [address] PCP - General Family Medicine 10/30/22 Team [...] 2023 End: June 25, 2023 Amy Schwartz , ANA MARIA Other Provider Active Star t: June 22, 2023 End: June 25, 2023 Lorena Conway RN Other Provider Active Start : June 22, 2023 End: June 25, 2023 Angelica Cheney , ANA MARIA Other Provider Active Start: A pril 2023 End: June 25, 2023 Tawanna Conley RN Other Provider Active Star t: June 22, 2023 End: June 25, 2023 Ree Clemente , ANA MARIA Other Provider Active Start: A pril 2023 End: June 25, 2023 Mary Quach , ANA MARIA Other Provider Active Start: Ap [facility] 2023 End: June 25, 2023 Fercho Granados [...] Haris Sneed MD Other Provider Active Start: Jun il 2023 End: June 25, 2023 Lyudmila Toribio NP-C Other Provider Active St art: June 22, 2023 End: June 25, 2023 Mark Leavitt APRN Other Provider Active Star t: June 22, 2023 End: June 25, 2023 Almas Rayo MD Other Provider Active Start: June 22, 2023 End: June 25, 2023 Adonis Do MD Other Provider Active Start: Ap [facility] 2023 End: June 25, 2023 Sedrick Ramirez MD Other Provider Active Start: Jun il 2023 End: June 25, 2023 Amber Jones MD Other Provider Active Star t: June 22, 2023 End: June 25, 2023 Trey Rothman MD Other Provider Active Start: A pril 2023 End: June 25, 2023 Allison Marin DO Other Provider Active Start: Ap ril 2023 End: June 25, 2023 Inocencio Andino DO Other Provider Active Start : June 22, 2023 End: June 25, 2023 Anita Vann APRN Other Provider Active Start: June 22, 2023 End: June 25, 2023 Vick Dorsey DO Other Provider Active Start: June 22, 2023 End: June 25, 2023 Chapin Bell MD Other Provider Active Sta rt: June 22, 2023 End: June 25, 2023 Becky Fuentes , SHADE MATCHER Other Provider Active Start : June 22, 2023 End: June 25, 2023 Autumn Chisholm , CECY Other Provider Active St art: June 22, 2023 End: June 25, 2023 Taras Dunbar MD Other Provider Active Start: A pril 2023 End: June 25, 2023 Rickie Lobo MD Other Provider Active S tart: June 22, 2023 End: June 25, 2023 Jluis Harrell , DO Other Provider Active Star t: June 22, 2023 End: June 25, 2023 Ramez Mock , DO Other Provider Active Start: June 22, [...] (unrecogniz ed section and content) Reason Comments Retirement Reason Comments Radiology XR Reason Comments New Pain Source Comments (unrecognize d section and content) In the event this informatio n is protected by the Federal Confidentiality of Alcohol and Drug Abuse Patient Records regulations: The Federal rules restrict any use of the information to criminally investigate or prosecute any alcohol or drug abuse patient.[facility] Hospital[facility] the event this information is protected by the Federal Confidentiality of Alcohol and Drug Abuse Patient Records regulations: The Federal rules restrict any use of the information to criminally investigate or prosecute any alcohol or drug abuse patient.[facility] FOR RECORDS PERTAINING TO PATIENTS WHO ARE [...] BE BASED ON THE PRIMARY CLINICAL RECORDS. [facility] [employer] [facility]. provides no warranty or guarantee of the accuracy or completeness of information in this document.
== END 2023-09-08 10:08 | disposition home or self-care (01) ==
LOC: US 10:07
PROVIDERS: PCP Family Medicine; Visit Provider Obstetrics & Gynecology
DX: Z12.31 Encounter for screening mammogram for malignant neoplasm of breast (principal); N92.0 Excessive and frequent menstruation with regular cycle; Z80.3 Family history of malignant neoplasm of breast
CPT/HCPCS: 76856; 77063; 77067

== ENCOUNTER 2023-10-12 11:06 | Outpatient (OUT) | payer MEDICAID, SELFPAY ==
--- NOTE | 2023-10-12 11:15 | ECG_ITS ---
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
--- OUTSIDE RECORDS SUMMARY | 2023-10-12 11:22 | XMS_ITS | CCD ---
Author Organization [facility] Care Team Providers Care Executive Asst Name Role Phone SHAMMO, DEMETRIA Primary Care [...] Unavailable ROSITA ., DR DIAZ Attending Unavailable SHAMDEMETRIA FINCH Primary Care Unavailable No Pcp, No Pcp Primary Care Provider Unavailabl e NON STAFF Primary Care Provider Unavailabl e MD Joseph Tello Attending Provider [phone] MD Joseph Tello Admit Provider ANA MARIA [...] Other Provider MD Carrillo Escamilla Other Provider [phone] MD Ara Carlin Other Provider MD Benjy Houser Other Provider Unavailable CECY Mata Other Provider [phone] MD Linsey Pradhan Other Provider [phone] MD Antoine Perez Other Provider MD Elin Root Other Provider MD Miguel Juarez Other Provider DO Modesto Ibarra Other Provider [phone] MD Kell Jara Other Provider MD Haris Sneed Other Provider MIR Toribio Other Provider [phone] Born, COOK SHIPGloria Diaz Other Provider Unavailable MD Almas Rayo Other Provider MD Adonis Do Other Provider MD Sedrick Ramirez Other Provider MD Amber Jones Other Provider Unavailable MD Trey Rothman Other Provider DO Allison Marin Other Provider DO Inocencio Andino Other Provider CECY Vann Other Provider DO Vick Dorsey Other Provider MD Chapin Bell Other Provider [phone] CECY Fuentes Other Provider CECY Chisholm Other [...] Referring Unavailable BUTCH OLIVA Primary Care Unavailable Unavailable Primary Care Provider Unavailabl e [...] Marin Consulting Unavailable Inocencio Andino Consulting Unavailable ObAnita jones Consulting Unavailable Vick Dorsey Consulting Unavailable DaromaChapin whittaker Consulting Unavailable Becky Fuentes Consulting Unavailable [...] Morales Attending Unavailable TANG SLOAN Referring Unavailable TRAV VALDOVINOS Attending Unavailable TRAV VALDOVINOS Referring Unavailable TRAV VALDOVINOS Attending Unavailable EMILY BECKER Attending Unavailable EMILY BECKER Attending Unavailable EMILY BECKER Attending Unavailable Allergies Allergy Classification Reported Allergen(s) Allergy Type Date of Onset Reaction(s) Facility Nitroimidazoles (antibiotic) (1 source) metroNIDAZOLE Drug Allergy 8 [facility] Ondansetron (1 source) Ondansetron Drug Allergy 1 Itching [facility] (1 source) metroNIDAZOLE Drug Allergy 3 [facility] Repository (7 sources) metroNIDAZOLE; Translations: [METRONIDAZOLE] Drug Allergy 8 Nausea, [facility] (9 sources) Ondansetron; Translations: [ONDANSETRON HCL] Drug Allergy 1 Itching [facility] (3 sources) metroNIDAZOLE; Translations: [METRONIDAZOLE HCL] Drug Allergy 8 [facility] (1 source) metroNIDAZOLE Drug Allergy 4 [facility] Repository Medications Current Medications Medication Drug Class(es) Dates Sig (Normalized) Sig (Original) acetaminophen 300 mg / codeine phosphate 30 mg oral tablet (3 sources) Opioid Agonist Start: 07-14-2010 take 1 [...] 12:00am diphenhydrAMINE hydrochloride 25 mg oral capsule (3 sources) Histamine-1 Receptor Antagonist Start: 07-14-2010 take 1 capsule by mouth every six hours as needed diphenhydrAMINE 25 mg ORAL capsule Take 1 capsule by mouth every 6 hours as needed for Itching/Rash. 28 capsule 0 07/14/2010 Active docusate sodium 100 mg oral capsule (3 sources) Start: 07-14-2010 take 1 capsule by [...] Start: 02-06-2023 take 1 capsule by mo [facility] in the morning DULoxetine 40 mg capsule,delayed [...] 12:00am Start: 02-28-2023 take 1 tablet by [facility] every eight hours as needed ibuprofen (MOTRIN) 800 mg tablet Take 1 tablet (800 mg total) by mouth every 8 (eight) hours as needed. 0 02/28/2023 Active linezolid 600 mg oral tablet (3 sources) Oxazolidinone Antibacterial Start: 07-11-2010 take 1 [...] 10 ml lidocaine hydrochloride 10 mg/ml injection (7 sources) Antiarrhythmic, Amide Local Anesthetic Start: 09-30-2023 End: 09-30-2023 lidocaine (PF) 10 mg/mL (1 %) 4 mL injection (XYLOCAINE) Start: 09-03-2023 End: 09-03-2023 lidocaine (PF) 10 mg/mL (1 % ) 8 mL injection (XYLOCAINE) Start: 06-22-2023 apply 1 dose topically once da rosa Lidocaine Active 1 PATCH TOPICAL Daily June 22, 2023 12:00am 1 ml triamcinolone acetonide 40 mg/ml injection (6 sources) Corticosteroid Start: 09-30-2023 End: 09-30-2023 triamcinolone acetonide 40 mg injection (KeNALog 40) Start: 09-03-2023 End: 09-03-2023 triamcinolone acetonide 80 m g injection (KeNALog 40) Problems Active Problems Problem [...] 05-14-2023 05-14-2023 Episodic Other connective tissue disease (3 sources) Trochanteric bursitis of left hip; Translations: [...] [Pain in right hip] 08-30-2023 Episodic Other non-traumatic joint disorders (1 source) Pain in right hip; Translations: [Pain in right hip] Onset: 09-03-2023 Episodic Other nutritional; endocrine; and metabolic disorders [...] Chronic Other nutritional; endocrine; and metabolic disorders (10 sources) Obesity; Translations: [Obesity, unspecified] Onset: 05-17-2007 [...] Date Episodic/Chronic Disorders of teeth and jaw (3 sources) Jaw pain; Translations: [Jaw pain] Onset: 07-07-2010 Episodic Ectopic (5 sources) Ectopic ; Translations: [Unspecified ectopic without intrauterine ] Onset: 05-11-2012 04-30-2023 Episodic Other connective tissue disease (3 sources) Pain in limb; Translations: [Pain in unspecified limb] Onset: 05-17-2007 Resolved: 07-07-2010 07-07-2010 Episodic Pneumonia (except that caused by tuberculosis or sexually transmitted disease) (5 sources) Pneumonia; Translations: [Pneumonia, unspecified organism] Onset: 01-24-2023 01-24-2023 Episodic Skin and subcutaneous tissue infections (8 sources) Cellulitis and abscess of trunk; Translations: [Cellulitis of trunk, unspecified] Onset: 07-07-2010 04-30-2023 Episodic Spondylosis; intervertebral disc disorders; other back problems (6 sources) Degeneration of lumbosacral intervertebral disc; Translations: [Other intervertebral disc degeneration, lumbosacral region] Onset: 05-17-2007 Resolved: 07-07-2010 07-07-2010 Chronic Spondylosis; intervertebral disc disorders; other back problems (14 sources) Spinal stenosis of lumbar region; Translations: [Spinal stenosis, lumbar region without neurogenic claudication] Onset: 05-17-2007 Resolved: 07-07-2010 04-30-2023 Episodic Results Test Name Value Interpretation Reference Range Facility Large Joint Arthro/Inj: bila teral hip jointson 09-30-2023 Edward Arita DO 09/30/2023 11:44 AM Large Joint Arthro/Inj: bilateral hip joints Informed Consent Consent Obtained: Verbal [place] Protocol A moment to CARE was completed. SIGN IN Personnel directly involved with the procedure wore the appropriate PPE. Special Equipment: N/A Patient/Surrogate Stated/Verified: Patient name, Date of , Relevant allergies and Intended procedure TIME OUT Intended patient and procedure match the source document(s). Relevant labs, photos, and/or imaging studies have been reviewed. Correct side/site marked and visible. Medications required for procedure verified. No fire risk assessment and interventions applicable. No implant(s) inserted. 09/30/2023 11:43 AM The procedure site was prepped in the usual sterile fashion. Site: bilateral hip joints Details:Musculoskelet al ultrasound was utilized to successfully localize placement of the injection needle at the appropriate site. Ultrasound images demonstrating local vasculature and demonstrating injection of solution were saved. Medications (Right): 40 mg triamcinolone acetonide 40 mg/mL Medications (Left): 40 mg triamcinolone acetonide 40 mg/mL Anesthetics (Right): 4 mL lidocaine (PF) 10 mg/mL (1 %) Anesthetics (Left): 4 mL lidocaine (PF) 10 mg/mL (1 %) Outcome: Tolerated well, no immediate complications Post-injection instructions were reviewed with the patient and the patient voiced understanding of these instructions. SIGN OUT All instruments, equipment, possible retained foreign bodies accounted for. Post-procedure follow-up management communicated and Plan of Care Visit completed when applicable [facility] US HIP-INJECTION LT (POC) OR I USE ONLYon 09-30-2023 [facility] US HIP-INJECTION RT (POC) OR I USE ONLYon 09-30-2023 [facility] CNOVon 09-03-2023 CNOV Office Visit (LOORRM ) JENNIFER MENDES ([id number]) 1980 F [facility] Date Time Provider Department 09/03/23 8:30 AM TANG SLOAN During your visit today, we recorded the following information about you: Tang Slona PA-C 09/07/2023 4:29 PM Signed SERVICE DATE: September 03, 2023 PCP: No [...] She reports that she moved here from [place] and moved in with her sisters in the last few years but moved into a halfway in the last year when she could not get around or do self-care. She is now living in a halfway facility. Has significant pain in her back [...] gabapentin and methadone all given at the halfway without great pain control. She has done physical therapy as well. She has schizoaffective disorder but otherwise is fairly healthy. She notes that her weight was 268 when she entered the halfway but is now 320. Pain level is [...] Left Hip PAST MEDICAL HISTORY Diagnosis Date - Cellulitis and abscess of trunk 2010 - Herpes simplex - Obesity PAST SURGICAL HISTORY Procedure Laterality Date - PAST SURGICAL HISTORY OF 1994 EXCISION OF LINGUAL TONSIL - PAST SURGICAL HISTORY OF 1999 ECTOPIC - PAST SURGICAL HISTORY OF 2004 SECTION - PAST SURGICAL HISTORY OF 2010 IANDD ABDOMINAL WALL ABSCESS FAMILY HISTORY Problem Relation Age of Onset - Cervical Cancer Maternal Grandmother - Cervical Cancer Maternal Aunt Social History Tobacco Use - Smoking status: Every Day Packs/day: 25.00 Years: 15.00 Additional pack years: 0.00 Total pack years: 375.00 Types: Cigarettes Substance Use Topics - Alcohol use: No ALLERGIES Allergen Reactions - Flagyl [Metronidazo* Hives - Zofran [Ondansetron* Itching MEDICATIONS: - diphenhydrAMINE 25 mg ORAL capsule Take 1 capsule by mouth every 6 hours as needed for Itching/Rash. - docusate sodium 100 mg ORAL capsule Take 1 capsule by mouth twice daily as needed for Constipation. - acetaminophen-codeine 300-30 mg ORAL per tablet Take 1 tablet by mouth as needed (for pain on dressing change.). - linezolid 600 mg ORAL tablet Take 1 [...] Abduction: 5/5 Adduction: 5/5 Flexion: 4/5 Other (more content not included)... Normal [facility] Large Joint Arthro/Inj: R gr eater trochanteric bursaon 09-03-2023 Tang Sloan PA-C 09/07/2023 4:29 PM Large Joint Arthro/Inj: R greater trochanteric bursa Informed Consent Consent Obtained: Verbal [place] Protocol A moment to CARE was completed. [...] of Care Visit completed when applicable Third republican verified by Monae Vaca MA. [facility] XR HIP JORGE LUIS 5V PEL+ AP/LAT [...] No fracture. IMPRESSION: SEVERE BILATERAL HIP OSTEOARTHRITIS. Foundation Drill Operator: PSCB Transcribe Date/Time: Sep 03 2023 11:04A Dictated by : EVA ZARATE MD This examination was interpreted and the report reviewed and electronically signed by: EVA ZARATE MD on Sep 03 2023 11:05AM EST [id number] Normal [facility] XR HIP BILATERAL 5V PEL/AP/L AT EACH HIPon 09-03-2023 IMPRESSION: SEVERE BILATERAL HIP OSTEOARTHRITIS. Foundation Drill Operator: FAY Transcribe Date/Time: Sep 03 2023 11:04A Dictated by : EVA ZARATE MD This examination was interpreted and the report reviewed and electronically signed by: EVA ZARATE MD on Sep 03 2023 11:05AM [facility] DIVISION OF RADIOLOGY * * *Final Report* [...] pubis. No fracture. DIVISION OF RADIOLOGY Provider, [facility] - 09/03/2023 * * *Final Report* * [...] fracture. IMPRESSION IMPRESSION: SEVERE BILATERAL HIP OSTEOARTHRITIS. Foundation Drill Operator: FAY Transcribe Date/Time: Sep 03 2023 11:04A Dictated by : EVA ZARATE MD This examination was interpreted and the report reviewed and electronically signed by: EVA ZARATE MD on Sep 03 2023 11:05AM EST [facility] Radiology Study observation (narrative) [facility] XR HIP BILATERAL 5V PEL/AP/L AT EACH HIPOrdered By: Ccf Provider on 09-03-2023 [facility] Cholesterol [Mass/volume] in Serum or PlasmaOrdered By: Joseph Tello on 06-23-2023 Cholesterol [Mass/Vol] 172 mg/dL Normal 140-200 [facility] Comment on above: Chol less than 200 m g/dl low riskChol 201-239 mg/dl borderline riskChol 240 mg/dl and greater high risk Order Comment: FASTI NG Y Result Comment: Chol less than 200 mg/dl low risk Chol 201-239 mg/dl borderline risk Chol 240 mg/dl and greater high risk Performed By: #### T SH3 wRFLX, LIPID, [id number] #### [facility] [address] Cholesterol in LDL Calc [Mas s/Vol]Ordered By: Joseph Tello on 06-23-2023 Cholesterol in LDL [Mass/Vol] 100 mg/dL 0-100 [facility] Comment on above: LDL ATP III CLASSIFI CATIONLDL less than 100 mg/dL OptimalLDL 100-129 mg/dL Near or above optimalLDL 130-159 mg/dL Borderline highLDL 160-189 mg/dL HighLDL greater than 189 mg/dL Very high Cholesterol in VLDL Calc [Ma ss/Vol]Ordered By: Joseph Tello on 06-23-2023 Cholesterol in VLDL [Mass/Vol] 44 mg/dL [facility] ECG 12 lead ECGon 06-23-2023 ECG 12 lead ECG [facility] [address] [place] [address] Electrocardiograph Report Signed Patient: Jennifer Mendes MR#: [id number] : 1980 Acct:[id number] Age/Sex: 42 / F ADM Date: 06/22/23 Loc: Room: 7L3681-1 Type: ADM IN Attending Dr: Joseph Tello [...] previous ECGs available Confirmed by Sekou Maciel ([id number]) on 06/23/2023 11:23:15 AM Referred By: Electronically Signed By:Sekou Maciel Transcribed By: MUS Signed By Sekou Maciel MD 06/23/23 1123 Normal [facility] Lipid Panelon 06-23-2023 LDL Cholesterol,Calculated 100 mg/dL Normal 0-100 [facility] Comment on above: Order Comment: ANGELIQUE Ornelas Result Comment: LDL ATP III CLASSIFICATION LDL less than 100 mg/dL Optimal LDL 100-129 mg/dL Near or above optimal LDL 130-159 mg/dL Borderline high LDL 160-189 mg/dL High LDL greater than 189 mg/dL Very high Performed By: #### T SH3 wRFLX, LIPID, [id number] #### [facility] [address] Triglyceride w/Reflex 220 mg/dL High 0-149 [facility] Comment on above: Order Comment: ANGELIQUE Ornelas Result Comment: TRIG ATP III CLASSIFICATION TRIG less than 150 mg/dL Normal TRIG 150-199 mg/dL Borderline high TRIG 200-500 mg/dL High TRIG greater than 500 mg/dL Very high Standard traceable to the Center for Disease Conrtrol and Prevention (CDC) test method. Performed By: #### T SH3 wRFLX, LIPID, [id number] #### [facility] [address] [place] [id number] [facility] VLDL CHOLESTEROL 44 mg/dL Normal [facility] Comment on above: Order Comment: ANGELIQUE Ornelas Performed By: #### T SH3 wRFLX, LIPID, [id number] #### [facility] [address] [place] [id number] [place] Serum or plasma high density lipoprotein (HDL) cholesterol measurementOrdered By: Joseph Tello on 06-23-2023 Cholesterol in HDL [Mass/Vol] 28 mg/dL Normal 23-92 [facility] Comment on above: HDL CHOL ATP-III CLA SSIFICATION Cardiovascular RiskHDL > or equal to 60 mg/dL LOWHDL < 40 mg/dL HIGH Order Comment: FASTSher NG Y Result Comment: HDL CHOL ATP-III CLASSIFICATION Cardiovascular Risk HDL > or equal to 60 mg/dL LOW HDL < 40 mg/dL HIGH Performed By: #### T SH3 wRFLX, LIPID, [id number] #### [facility] [address] Serum or plasma total choles terol/high density lipoprotein (HDL) cholesterol mass ratOrdered By: Joseph Tello on 06-23-2023 Cholesterol.total/Cholest mitch in HDL [Mass ratio] 6.1 {ratio} Normal <5.0 [facility] Comment on above: Order Comment: FASTI NG Y Performed By: #### T SH3 wRFLX, LIPID, [id number] #### [facility] [address] Thyroid Stim Hormone w/Rflxo n 06-23-2023 Thyroid Stim Hormone w/Rflx 2.27 u[iU]/mL Normal 0.45-5.33 [facility] Comment on above: Order Comment: FASTI NG Y Performed By: #### T SH3 wRFLX, LIPID, [id number] #### [facility] [address] Thyrotropin [Units/volume] i n Serum or PlasmaOrdered By: Joseph Tello on 06-23-2023 TSH Qn 2.27 m[IU]/L 0.45-5.33 [facility] Triglyceride [Mass/volume] i n Serum or PlasmaOrdered By: Joseph Tello on 06-23-2023 Triglyceride [Mass/Vol] 220 mg/dL 0-149 [facility] Comment on above: TRIG ATP III CLASSIF ICATIONTRIG less than 150 mg/dL NormalTRIG 150-199 mg/dL Borderline highTRIG 200-500 mg/dL High TRIG greater than 500 mg/dL Very highStandard traceable to the Center for Disease Conrtrol and Prevention (CDC) test method. Vitamin D 25 Hydroxy Totalon 06-23-2023 Vitamin D 25 Hydroxy Total 13.4 ng/mL Low 30-100 [facility] Comment on above: Order Comment: ANGELIQUE Ornelas Result Comment: DELVIS MIN D STATUS 25(OH)VITAMIN D RANGE (ng/mL) Deficient <20 Insufficient 20 to <30 Sufficient 30 to 100 Reference: Ricky Phipps, Shan KEARNEY, et al. Evaluation,treatment, and prevention of vitamin D deficiency; an Endocrine Society clinical practice guideline. JCEM. 2010; 96(7):1911-30. PERFORMED BY: [place] [address] PATHOLOGIST DISTILLERY WORKER JANNETTE ROTHMAN M.D. Performed By: #### T SH3 wRFLX, LIPID, [id number] #### [facility] [address] Vitamin D+Metabolites [Mass/ volume] in Serum or PlasmaOrdered By: Joseph Tello on 06-23-2023 Vitamin D+Metabolites [Mass/Vol] 13.4 ng/mL 30-100 [facility] Comment on above: VITAMIN D STATUS 25( OH)VITAMIN D RANGE (ng/mL) Deficient <20 Insufficient 20 to <30Sufficient 30 to 100Reference: Ricky Phipps, Shan KEARNEY, et al. Evaluation,treatment, and prevention of vitamin D deficiency; an Endocrine Society clinical practice guideline. JCEM. 2010; 96(7):1911-30. ACETAMINOPHENon 06-22-2023 Acetaminophen [Mass/Vol] 5.1 ug/mL Low 10.0-30.0 [facility] Comment on above: Result Comment: Refe rence ranges are for therapeutic limits. Performed By: #### C MP, 4024-6, 5643-2, 3298-7, CBCA #### [facility] ([id number]) [address] [place] [address], [place] [address] CBC AND AUTO DIFFon 06-22-19 24 ABSOLUTE BASOPHIL 0.2 X10E9/L Normal 0.0-0.2 [facility] Comment on above: Performed By: #### C CHANTELL, 4024-6, 5643-2, 3297-09, CBCA #### [facility] ([id number]) [address] [place] [address] ABSOLUTE NEUTROPHIL 8.5 X10E9/L High 1.5-6.6 [facility] Comment on above: Performed By: #### C CHANTELL, 4024-6, 5643-2, 3297-09, CBCA #### [facility] ([id number]) [address] [place] [address] Basophils/100 WBC (Bld) 1.5 % Normal [facility] Comment on above: Performed By: #### C CHANTELL, [facility]-6, 5643-2, 3297-09, CBCA #### [facility] ([id number]) [address] [place] [address]70 Eosinophils (Bld) [#/Vol] 0.9 10*3/uL High 0.0-0.4 [facility] Comment on above: Performed By: #### C CHANTELL, 4024-6, 5643-2, 3297-09, CBCA #### [facility] ([id number]) [address] [place] [address] 19371 Eosinophils/100 WBC (Bld) 6.5 % Normal [facility] Comment on above: Performed By: #### C CHANTELL, 4024-6, 5643-2, 3297-09, CBCA #### [facility] ([id number]) [address] [place] [address] 10360 Erythrocyte distribution width (RBC) [Ratio] 18.1 % High 11.5-15.0 [facility] Comment on above: Performed By: #### C CHANTELL, 4024-6, 5643-2, 3297-09, CBCA #### [facility] ([id number]) [address] [place] [address] 22634 Hematocrit (Bld) [Volume fraction] 35.5 % Normal 35-47 [facility] Comment on above: Performed By: #### C CHANTELL, 4024-6, 5643-2, 3297-09, CBCA #### [facility] ([id number]) [address] [place] [address] Hemoglobin (Bld) [Mass/Vol] 11.2 g/dL Low 11.7-15.5 [facility] Comment on above: Performed By: #### C CHANTELL, [facility]6, 5642-2, 3297-09, CBCA #### [facility] ([id number]) [address] [place] [address]91 Lymphocytes (Bld) [#/Vol] 3.1 10*3/uL Normal 1.0-3.5 [facility] Comment on above: Performed By: #### C CHANTELL, [facility]-6, 5642-, 3297-09, CBCA #### [facility] ([id number]) [address] [place] [address] 92182 Lymphocytes/100 WBC (Bld) 22.2 % Normal [facility] Comment on above: Performed By: #### C CHANTELL, [facility]4-6, -2, 3297-09, CBCA #### [facility] ([id number]) [address] [place] [address] 74333 MCH (RBC) [Entitic mass] 23.1 pg Low 27-34 [facility] Comment on above: Performed By: #### C CHANTELL, 4024-6, 5643-2, 3297-09, CBCA #### [facility] ([id number]) [address] [place] [address] 70869 MCHC (RBC) [Mass/Vol] 31.4 g/dL Low 32-36 [facility] Comment on above: Performed By: #### C CHANTELL, 4024-6, 5643-2, 3297-09, CBCA #### [facility] ([id number]) [address] [place] [address] 44945 MCV (RBC) [Entitic vol] 74 fL Low 80-100 P [facility] Comment on above: Performed By: #### C CHANTELL, 4024-6, 5643-2, 3297-09, CBCA #### [facility] ([id number]) [address] [place] [address] 13641 Monocytes (Bld) [#/Vol] 1.1 10*3/uL High 0-0.9 [facility] Comment on above: Performed By: #### Rene ABDUL, [facility]-6, 5642-04, 3297-09, CBCA #### [facility] ([id number]) [address] [place] [address] 06392 Monocytes/100 WBC (Bld) 8.0 % Normal [facility] Comment on above: Performed By: #### C CHANTELL, 4024-6, 5642-, 3297-09, CBCA #### [facility] ([id number]) [address] [place] [address] 35852 Neutrophils/100 WBC (Bld) 61.8 % Normal [facility] Comment on above: Performed By: #### C CHANTELL, 4024-6, 56-2, 32910-12, CBCA #### [facility] ([id number]) [address] [place] [address] 10958 Platelet mean volume (Bld) [Entitic vol] 7.9 fL Normal 7-12 [facility] Comment on above: Performed By: #### C CHANTELL, 4024-6, 5643-2, 3297-09, CBCA #### [facility] ([id number]) [address] [place] [address] 06940 Platelets (Bld) [#/Vol] 530 10*3/uL High 150-450 [facility] Comment on above: Performed By: #### C CHANTELL, 4024-6, 5643-2, 3298-7, CBCA #### [facility] ([id number]) [address] [place] [address] 94480 RBC COUNT 4.82 X10E12/L Normal 3.80-5.20 [facility] Comment on above: Performed By: #### C CHANTELL, 4024-6, 5643-2, 329-7, CBCA #### [facility] ([id number]) [address] [place] [address] 68662 WBC (Bld) [#/Vol] 13.8 10*3/uL High 4.0-11.0 [facility] Comment on above: Performed By: #### C CHANTELL, 4024-6, 5643-2, 3298-7, CBCA #### [facility] ([id number]) [address] [place] [address]808 COMPREHENSIVE METABOLIC PANE Jace 06-22-2023 Albumin [Mass/Vol] 3.6 g/dL Normal 3.2-5.3 [facility] Comment on above: Performed By: #### C CHANTELL, 4024-6, 5643-2, 3298-7, CBCA #### [facility] ([id number]) [address] [place] [address] 16181 ALP [Catalytic activity/Vol] 51 U/L Normal 39-130 [facility] Comment on above: Performed By: #### C CHANTELL, 4024-6, 5643-2, 3298-7, CBCA #### [facility] ([id number]) [address] [place] [address] 97027 ALT [Catalytic activity/Vol] 18 U/L Normal 0-31 [facility] Comment on above: Performed By: #### C CHANTELL, 4024-6, 5643-2, 3297-7, CBCA #### [facility] ([id number]) [address] [place] [address] 65738 Anion gap [Moles/Vol] 6 mmol/L Normal 5-15 [facility] Comment on above: Performed By: #### C CHANTELL, 4024-6, 5643-2, 7, CBCA #### [facility] ([id number]) [address] [place] [address] 44596 AST [Catalytic activity/Vol] 14 U/L Normal 0-41 [facility] Comment on above: Performed By: #### C CHANTELL, 4024-6, 5643-2, 3297-09, CBCA #### [facility] ([id number]) [address] [place] [address] 46170 Bilirubin [Mass/Vol] 0.6 mg/dL Normal 0.3-1.2 [facility] Comment on above: Performed By: #### C CHANTELL, 4024-6, 5643-2, 3297-09, CBCA #### [facility] ([id number]) [address] [place] [address] 50144 Calcium [Mass/Vol] 9.0 mg/dL Normal 8.5-10.5 [facility] Comment on above: Performed By: #### C CHANTELL, 4024-6, 5643-2, 329-, CBCA #### [facility] ([id number]) [address] [place] [address] 04731 Chloride [Moles/Vol] 104 mmol/L Normal 98-109 [facility] Comment on above: Performed By: #### C CHANTELL, 4024-6, 5643-2, 329-7, CBCA #### [facility] ([id number]) [facility] [place] [address] CO2 [Moles/Vol] 26 mmol/L Normal 22-32 [facility] Comment on above: Performed By: #### C CHANTELL, 4024-6, 5643-2, 3297-09, CBCA #### [facility] ([id number]) [address] [place] [address] 41660 Creatinine [Mass/Vol] 0.84 mg/dL Normal 0.40-1.00 [facility] Comment on above: Result Comment: METH OD TRACEABLE TO IDMS STANDARD Performed By: #### C CHANTELL, 4-6, 5642-2, 3297-09, CBCA #### [facility] ([id number]) [address] [place] [address] 01837 GFR/1.73 sq M.predicted among non-blacks MDRD (S/P/Bld) [Vol rate/Area] 88 mL/min/{1.73_m2} Normal >59 [facility] Comment on above: Result Comment: Reported eGFR is based on the CKD-EPI 2020 equation that does not use a race coefficient. Performed By: #### C CHANTELL, 4-6, 5642-2, 3297-09, CBCA #### [facility] ([id number]) [address] [place] [address] 75637 Glucose [Mass/Vol] 96 mg/dL Normal 65-99 [facility] Comment on above: Performed By: #### C CHANTELL, 4024-6, 5642-2, 32910-12, CBCA #### [facility] ([id number]) [address] [place] [address] 08779 Potassium [Moles/Vol] 3.9 mmol/L Normal 3.5-5.0 [facility] Comment on above: Performed By: #### C CHANTELL, 4024-6, 5643-2, 32910-12, CBCA #### [facility] ([id number]) [address] [place] [address] 05850 Protein [Mass/Vol] 8.0 g/dL Normal 6.0-8.0 [facility] Comment on above: Performed By: #### C CHANTELL, 4024-6, 5643-2, 3298-7, CBCA #### [facility] ([id number]) [address] [place] [address] 07360 Sodium [Moles/Vol] 136 mmol/L Normal 134-146 [facility] Comment on above: Performed By: #### C CHANTELL, 4024-6, 5643-2, 3298-7, CBCA #### [facility] ([id number]) [address] [place] [address] 16862 Urea nitrogen [Mass/Vol] 21 mg/dL Normal 5-23 [facility] Comment on above: Performed By: #### C CHANTELL, 4024-6, 5643-2, 3298-7, CBCA #### [facility] ([id number]) [address] [place] [address] 22208 DRUG SCREEN, URINEon 024 AMPHETAMINE/METHAMP Negative Normal NEG [facility] Comment on above: Result Comment: AMPH /METH screening cut off = 1000 ng/mL Performed By: #### D CRUZ #### [facility] ([id number]) [address] [place] [address] 95166 BARBITURATES Negative Normal NEG [facility] Comment on above: Result Comment: Ella iturates screening cut off value = 200 ng/mL Performed By: #### D CRUZ #### [facility] ([id number]) [address] [place] [address] 88965 BENZODIAZEPINES Negative Normal NEG [facility] Comment on above: Result Comment: Feng odiazepines screening cut off value = 200 ng/mL Performed By: #### D CRUZ #### [facility] ([id number]) [address] [place] [address] 84714 CANNABINOIDS Positive Abnormal NEG [facility] Comment on above: Result Comment: Conf irmation available upon request. Cannabinoids/THC screening cut off value = 50 ng/mL Performed By: #### D CRUZ #### [facility] ([id number]) [address] [place] [address] 86831 COCAINE METABOLITE Negative Normal NEG [facility] Comment on above: Result Comment: Coca ine screening cut off value = 300 ng/mL Performed By: #### D CRUZ #### [facility] ([id number]) [address] [place] [address] 40580 ECSTASY Negative Normal NEG [facility] Comment on above: Result Comment: Ecst asy screening cut off value = 500 ng/mL This report is intended for use in clinical monitoring or management of patients. Performed By: #### D CRUZ #### [facility] ([id number]) [address] [place] [address] 84806 METHADONE Negative Normal NEG [facility] Comment on above: Result Comment: Meth adone screening cut off value = 300 ng/mL. Performed By: #### D CRUZ #### [facility] ([id number]) [address] [place] [address] 47392 OPIATES Negative Normal NEG [facility] Comment on above: Result Comment: Opia alesha screening cut off value = 300 ng/mL NOTE: This test is used for the detection of codeine, hydrocodone (>1000 ng/mL), morphine and hydromorphone (>900 ng/mL) in urine. Performed By: #### D CRUZ #### [facility] ([id number]) [address] [place] [address] 75742 OXYCODONE Positive Abnormal NEG [facility] Comment on above: Result Comment: Conf irmation available upon request. Oxycodone screening cut off value = 300 ng/mL NOTE: This test is used for the detection of oxycodone and oxymorphone in urine. Performed By: #### D CRUZ #### [facility] ([id number]) [address] [place] [address] 21885 PHENCYCLIDINE Negative Normal NEG [facility] Comment on above: Result Comment: Phen cyclidine screening cut off value = 25 ng/mL Performed By: #### D CRUZ #### [facility] ([id number]) [address] [place] [address] 35585 ETHANOLon 06-22-2023 Ethanol [Mass/Vol] mg/dL Normal 0.00-0.08 [facility] Comment on above: Result Comment: This report is intended for use in clinical monitoring or management of patients. Performed By: #### C CHANTELL, 4024-6, 5643-2, 3298-7, CBCA #### [facility] ([id number]) [address] [place] [address] 91476 HCG ( test) Ql (U)o n 06-22-2023 Beta HCG ( test) Ql (U) Negative Normal NEG [facility] Comment on above: Performed By: #### 2 106-3 #### [facility] ([id number]) [address] [place] [address] 84755 Salicylates [Mass/Vol]on SALICYLATE <4.0 Normal 2.0-25.0 [facility] Comment on above: Result Comment: Refe rence ranges are for therapeutic limits. Performed By: #### C CHANTELL, 4024-6, 5643-2, 3298-7, CBCA #### [facility] ([id number]) [address] [place] [address] 18172 URN MACROSCOPIC NURon 2023 BILIRUBIN [place] Negative Normal NEG [facility] Comment on above: Performed By: #### N UM #### [facility] ([id number]) [address] [place] [address] [place] [address] BLOOD/HGB [place] Trace Abnormal NEG [facility] Comment on above: Performed By: #### N UM #### [facility] ([id number]) [address] [place] [address] 19164 GLUCOSE [place] Negative Normal NEG [facility] Comment on above: Performed By: #### N UM #### [facility] ([id number]) [address] [place] [address] [place] [address] KETONES [place] Negative Normal NEG [facility] Comment on above: Performed By: #### N UM #### [facility] ([id number]) [address] [place] [address] 41803 LEUKOCYTE ESTERASE [place] MODERATE Abnormal NEG [facility] Comment on above: Performed By: #### N UM #### [facility] ([id number]) [address] [place] [address] [place] [address] NITRITE [place] Negative Normal NEG [facility] Comment on above: Performed By: #### N UM #### [facility] ([id number]) [address] [place] [address] 38773 PH [place] 5.0 Normal 5.0-8.5 [facility] Comment on above: Performed By: #### N UM #### [facility] ([id number]) [address] [place] [address] [place] [address] PROTEIN [place] Negative Normal NEG [facility] Comment on above: Performed By: #### N UM #### [facility] ([id number]) [address] [place] [address] 51573 SPECIFIC GRAVITY [place] 1.015 Normal 1.003-1.035 [facility] Comment on above: Performed By: #### N UM #### [facility] ([id number]) [address] [place] [address] [place] [address] UROBILINOGEN [place] 0.2 eu/dL Normal <1.1 [facility] Comment on above: Performed By: #### N UM #### [facility] ([id number]) [address] [place] [address], [place] [address] PAP ACOG PANEL 2: 30 to 64on 06-03-2022 . . Normal [facility] Comment on above: Result Comment: Perf ormed at: WB Performed By: #### 4 [id number] #### [facility] [address] [address] [address] Dustin Hoover Age Gdln ACOG Testing -64 Normal [facility] Comment on above: Performed By: #### 4 [id number] #### [facility] [address] [address] [address] Dustin Hoover DIAGNOSIS: Comment Abnormal [facility] Comment on above: Result Comment: EPIT HELIAL CELL ABNORMALITY. ATYPICAL SQUAMOUS CELLS OF UNDETERMINED SIGNIFICANCE (ASC-US). TRICHOMONAS VAGINALIS IS PRESENT. Performed at: WB Performed By: #### 4 [id number] #### [facility] [address] [address] [address] Dustin Hoover Electronically signed by: Comment Normal [facility] Comment on above: Result Comment: Andreia López MD, Pathologist Performed at: WB Performed By: #### 4 [id number] #### [facility] [address] [address] [address] Dustin Hoover HPV Aptima Negative Normal Negative [facility] Comment on above: Result Comment: This nucleic acid amplification test detects fourteen high-risk HPV types (16,18,31,33,35,39,45,51,52,56,58,59,66,68) without differentiation. Performed at: =G Performed By: #### 4 [id number] #### [facility] [address] [address] [address] Dustin Hoover HPV Genotype Reflex Comment Normal [facility] Comment on above: Result Comment: Crit eria not met, HPV Genotype not performed. Performed at: WB Performed By: #### 4 [id number] #### [facility] [address] [place] [address] Dr. Dustin Hoover Methodology: Comment Normal [facility] Comment on above: Result Comment: This liquid based ThinPrep(R) pap test was screened with the use of an image guided system. Performed at: WB Performed By: #### 4 [id number] #### [facility] [address] [address] [address] Dustin Hoover Note: Comment Normal [facility] Comment on above: Result Comment: The Pap smear is a screening test designed to aid in the detection of premalignant and malignant conditions of the uterine cervix. It is not a diagnostic procedure and should not be used as the sole means of detecting cervical cancer. Both false-positive and false-negative reports do occur. . Performed at: WB Performed By: #### 4 [id number] #### [facility] [address] [place] [address] Dr. Dustin Hoover Pathologist Provided ICD10 Comment Normal [facility] Comment on above: Result Comment: R87. 610, R87.5 Performed at: WB Performed By: #### 4 [id number] #### [facility] [address] [place] [address] Dr. Dustin Hoover Performed by: Comment Normal [facility] Comment on above: Result Comment: Bernadette Tucker, Anesthesia Associate (ASCP) Performed at: WB Performed By: #### 4 [id number] #### [facility] [address] [place] [address] Dr. Dustin Hoover Recommendation: Comment Abnormal [facility] Comment on above: Result Comment: Sugg est follow up as clinically appropriate. Performed at: WB Performed By: #### 4 [id number] #### [facility] [address] [place] [address] Dr. Dustin Hoover Specimen adequacy: Comment Normal [facility] Comment on above: Result Comment: Sati sfactory for evaluation. Endocervical and/or squamous metaplastic cells (endocervical component) are present. Performed at: WB Performed By: #### 4 [id number] #### [facility] [address] [place] [address] Dr. Dustin Hoover LIPID PROFILEon 03-23-2023 CHOL-HDL RATIO NORM SEE BELOW Normal [facility] Comment on above: Result Comment: 3.3 - 4.4 LOW RISK 4.4 - 7.1 AVERAGE RISK 7.1 - 11.0 MODERATE RISK >11.0 HIGH RISK Performed By: #### P TT, PT #### [facility] [address] [address] [address] Dustin Hoover Cholesterol [Mass/Vol] 180 mg/dL Normal <=200 [facility] Comment on above: Performed By: #### P TT, PT #### [facility] [address] [address] [address] Dustin Hoover Cholesterol in HDL [Mass/Vol] 32 mg/dL Critically low 40-60 [facility] Comment on above: Performed By: #### P TT, PT #### [facility] [address] [address] [address] Dustin Hoover Cholesterol in LDL [Mass/Vol] 108.6 mg/dL Normal [facility] Comment on above: Performed By: #### P TT, PT #### [facility] [address] [address] [address] Dustin Hoover Cholesterol.total/Cholest mitch in HDL [Mass ratio] 5.6 {ratio} Normal [facility] Comment on above: Performed By: #### P TT, PT #### [facility] [address] [address] [address] Dustin Hoover HDL NORMAL > or = 60 mg/dl - LO W CARDIOVASCULAR RISK <40 mg/dl - HIGH CARDIOVASCULAR RISK Normal [facility] Comment on above: Performed By: #### P TT, PT #### [facility] [address] [address] [address] Dustin Hoover LDL CALC NORMAL SEE BELOW Normal [facility] Comment on above: Result Comment: <100 mg/dl OPTIMAL 100 - 129 mg/dl NEAR OR ABOVE OPTIMAL 130 - 159 mg/dl BORDERLINE HIGH 160 - 189 mg/dl HIGH >190 mg/dl VERY HIGH Performed By: #### P TT, PT #### [facility] [address] [address] [address] Dustin Hoover Triglyceride [Mass/Vol] 197 mg/dL Critically high <=150 [facility] Comment on above: Performed By: #### P TT, PT #### [facility] [address] [address] [address] Dustin Hoover VLDL CALC 39.4 mg/dL Normal [facility] Comment on above: Performed By: #### P TT, PT #### [facility] [address] [address] [address] Dustin Hoover MG MAMM SCREEN 3D JORGE LUIS CADon 05-28-2022 MG MAMM SCREEN 3D JORGE LUIS CAD Patient: JENNIFER MANZANO Exam Date: 05/28/2022 : 1980 Gender:F Ordering : DEMETRIA PHILLIPS Admission #: [id number] Family : Order #: [id number] CLICK HERE TO VIEW EXAM RADIOLOGY REPORT [...] breast cancer at age 64. LOCATION: [facility] BREAST COMPOSITION: Almost entirely fatty. FINDINGS: [...] Medina M.D. on 05/28/2022 at 13:16 Normal [facility] PROF 14(COMP METB)on 023 Albumin [Mass/Vol] 3.3 g/dL Critically low 3.4-5.0 Th [facility] Comment on above: Performed By: #### P TT, PT #### [facility] [address] [address] [address] Dustin Hoover Albumin/Globulin [Mass ratio] 0.9 {ratio} Normal [facility] Comment on above: Performed By: #### P TT, PT #### [facility] [address] [place] [address] Dr. Dustin Hoover ALP [Catalytic activity/Vol] 54 U/L Normal 46-116 [facility] Comment on above: Performed By: #### P TT, PT #### [facility] [address] [place] [address] Dr. Dustin Hoover ALT [Catalytic activity/Vol] 18 U/L Normal 14-59 [facility] Comment on above: Performed By: #### P TT, PT #### [facility] [address] [place] [address] Dr. Dustin Hoover Anion gap [Moles/Vol] 10.8 mmol/L Normal [facility] Comment on above: Performed By: #### P TT, PT #### [facility] [address] [place] [address] Dr. Dustin Hoover AST [Catalytic activity/Vol] 11 U/L Critically low 15-37 [facility] Comment on above: Performed By: #### P TT, PT #### [facility] [address] [place] [address] Dr. Dustin Hoover Bilirubin [Mass/Vol] 0.3 mg/dL Normal 0.2-1.0 [facility] Comment on above: Performed By: #### P TT, PT #### [facility] [address] [place] [address] Dr. Dsutin Hoover Calcium [Mass/Vol] 8.5 mg/dL Normal 8.5-10.1 [facility] Comment on above: Performed By: #### P TT, PT #### [facility] [address] [place] [address] Dr. Dustin Hoover Chloride [Moles/Vol] 105 mmol/L Normal 98-107 [facility] Comment on above: Performed By: #### P TT, PT #### [facility] [address] [place] [address] Dr. Dustin Hoover CO2 [Moles/Vol] 26.2 mmol/L Normal 21.0-32.0 [facility] Comment on above: Performed By: #### P TT, PT #### [facility] [address] [place] [address] Dr. Dustin Hoover Creatinine [Mass/Vol] 0.61 mg/dL Normal 0.55-1.02 [facility] Comment on above: Performed By: #### P TT, PT #### [facility] [address] [address] [address] Dustin Hoover EGFR-AF BOLIVIAN >60 Normal >=60 [facility] Comment on above: Performed By: #### P TT, PT #### [facility] [address] [place] [address] Dr. Dustin Hoover EGFR-NON AF BOLIVIAN >60 Normal >=60 [facility] Comment on above: Performed By: #### P TT, PT #### [facility] [address] [place] [address] Dr. Dustin Hoover Globulin (S) [Mass/Vol] 3.7 g/dL Normal T [facility] Comment on above: Performed By: #### P TT, PT #### [facility] [address] [place] [address] Dr. uDstin Hoover Glucose [Mass/Vol] 99 mg/dL Normal 74-106 [facility] Comment on above: Performed By: #### P TT, PT #### [facility] [address] [place] [address] Dr. Dustin Hoover Potassium [Moles/Vol] 4.0 mmol/L Normal 3.5-5.1 [facility] Comment on above: Performed By: #### P TT, PT #### [facility] [address] [place] [address] Dr. Dustin Hoover Protein [Mass/Vol] 7.0 g/dL Normal 6.4-8.2 [facility] Comment on above: Performed By: #### P TT, PT #### [facility] [address] [place] [address] Dr. Dustin Hoover Sodium [Moles/Vol] 138 mmol/L Normal 136-145 [facility] Comment on above: Performed By: #### P TT, PT #### [facility] [address] [place] [address] Dr. Dustin Hoover Urea nitrogen [Mass/Vol] 8.0 mg/dL Normal 7.0-18.0 [facility] Comment on above: Performed By: #### P TT, PT #### [facility] [address] [place] [address] Dr. Dustin Hoover Urea nitrogen/Creatinine [Mass ratio] 13.1 mg/mg Normal [facility] Comment on above: Performed By: #### P TT, PT #### [facility] [address] [place] [address] Dr. Dustin Hoover PROTIMEon 05-28-2022 INR Coag (PPP) [Relative time] 0.97 {INR} Normal [facility] Comment on above: Performed By: #### P TT, PT #### [facility] [address] [place] [address] Dr. Dustin Hoover INR GUIDELINES SEE BELOW Normal [facility] Comment on above: Result Comment: MARIA DOLORES RED INR: 2.0 - 3.0 CONDITIONS NOT LISTED BELOW 2.5 - 3.5 FOR PROSTHETIC HEART VALVE REPLACEMENT 2.5 - 3.5 RECURRENT THROMBOSIS Performed By: #### P TT, PT #### [facility] [address] [place] [address] Dr. Dustin Hoover PT Coag (PPP) [Time] 10.3 s Normal 9.0-11.6 [facility] Comment on above: Performed By: #### P TT, PT #### [facility] [address] [place] [address] Dr. Dustin Hoover PTTon 05-28-2022 aPTT Coag (Bld) [Time] 26.9 s Normal 22.3-36.2 Th [facility] Comment on above: Performed By: #### P TT, PT #### [facility] [address] [place] [address] Dr. Dustin Hoover CHLAMYDIA/GONOCOCCUS QUENTIN (SW AB/URINE/PAPon 05-27-2022 Chlamydia trachomatis, QUENTIN Negative Normal Negative [facility] Comment on above: Performed By: #### P TT, PT #### [facility] [address] [place] [address] Dr. Dustin Hoover Neisseria gonorrhoeae, QUENTIN Negative Normal Negative [facility] Comment on above: Performed By: #### P TT, PT #### [facility] [address] [place] [address] Dr. Dustin Hoover DHEA SERUMon 05-27-2022 Dehydroepiandrosterone (DHEA) 382 ng/dL Normal 31-701 [facility] Comment on above: Performed By: #### P TT, PT #### [facility] [address] [place] [address] Dr. Dustin Hoover VAGINITIS/VAGINOSIS DNA PROB Michael 05-27-2022 Catherine species Negative Normal Negative [facility] Comment on above: Performed By: #### V AGINT #### [facility] [address] [place] [address] Dr. Dustin Hoover Gardnerella vaginalis Positive Abnormal Negative [facility] Comment on above: Performed By: #### V AGINT #### [facility] [address] [place] [address] Dr. Dustin Hoover Trichomonas vaginalis Positive Abnormal Negative [facility] Comment on above: Performed By: #### V AGINT #### [facility] [address] [place] [address] Dr. Dustin Hoover DHEA-SULFATEon 05-26-2022 DHEA-Sulfate 48.3 ug/dL Critically low 57.3-279.2 [facility] Comment on above: Performed By: #### D HEASUL #### [facility] [address] [place] [address] Dr. Dustin Hoover FSHon 05-26-2022 FSH 14.7 mIU/mL Normal [facility] Comment on above: Result Comment: Adul t Female: Follicular phase 3.5 - 12.5 Ovulation phase 4.7 - 21.5 Luteal phase 1.7 - 7.7 Postmenopausal 25.8 - 134.8 Performed By: #### P TT, PT #### [facility] [address] [place] [address] Dr. Dustin Hoover HEPATITIS PANEL, ACUTEon HBsAg Screen Negative Normal Negative [facility] Comment on above: Performed By: #### H EPACUT #### [facility] [address] [place] [address] Dr. Dustin Hoover HCV AB Non-Reactive Normal Non Reactive [facility] Comment on above: Performed By: #### H EPACUT #### [facility] [address] [place] [address] Dr. Dustin Hoover Hep A Ab, IgM Negative Normal Negative [facility] Comment on above: Performed By: #### H EPACUT #### [facility] [address] [place] [address] Dr. Dustin Hoover Hep B Core Ab, IgM Negative Normal Negative [facility] Comment on above: Performed By: #### H EPACUT #### [facility] [address] [place] [address] Dr. Dustin Hoover Interpretation: Comment Normal [facility] Comment on above: Result Comment: Not infected with HCV unless early or acute infection is suspected (which may be delayed in an immunocompromised individual), or other evidence exists to indicate HCV infection. Performed By: #### H EPACUT #### [facility] [address] [place] [address] Dr. Dustin Hoover HIV 1 AND 2 WITH REFLEXon HIV Screen 4th Generation wRfx Non-Reactive Normal Non Reactive [facility] Comment on above: Result Comment: HIV Negative HIV-1/HIV-2 antibodies and HIV-1 p24 antigen were NOT detected. There is no laboratory evidence of HIV infection. Performed By: #### H IV12 #### [facility] [address] [place] [address] Dr. Dustin Hoover LUTEINIZING HORMONE (LH)on 0 05-26-2022 LH 41.0 mIU/mL Normal [facility] Comment on above: Result Comment: Adul t Female: Follicular phase 2.4 - 12.6 Ovulation phase 14.0 - 95.6 Luteal phase 1.0 - 11.4 Postmenopausal 7.7 - 58.5 Performed By: #### L BCLH #### [facility] [address] [place] [address] Dr. Dustin Hoover RPR QUANTon 05-26-2022 Rapid Plasma Reagin, Quant Non-Reactive Normal NonRea<1:1 [facility] Comment on above: Result Comment: Elder dickinson Note: This test does not meet current guidelines for screening and diagnosis of syphilis. This test is intended for following treatment response in patients being treated for syphilis infection. To screen for syphilis infection, a reflex cascade that includes both RPR and a treponema-specific assay should be utilized, such as Treponema pallidum (Syphilis) Screening [place] (752533) or Rapid Plasma Reagin (RPR) Test With Reflex to Quantitative RPR and Confirmatory Treponema pallidum Antibodies (434925). Performed By: #### P TT, PT #### [facility] [address] [place] [address] Dr. Dustin Hoover CBC AUTO DIFFon 05-25-2022 BASO # 0.1 103/ul Normal 0.0-0.1 [facility] Comment on above: Performed By: #### C BC #### [facility] [address] [place] [address] Dr. Dustin Hoover Basophils/100 WBC (Bld) 0.7 % Normal 0.2-2.0 [facility] Comment on above: Performed By: #### C BC #### [facility] [address] [place] [address] Dr. Dustin Hoover EO # 0.5 103/ul Normal 0.0-0.7 [facility] Comment on above: Performed By: #### C BC #### [facility] [address] [place] [address] Dr. Dustin Hoover Eosinophils/100 WBC (Bld) 2.6 % Normal 0.9-7.0 [facility] Comment on above: Performed By: #### C BC #### [facility] [address] [place] [address] Dr. Dustin Hoover Erythrocyte distribution width (RBC) [Ratio] 17.2 % Critically high 11.0-15.0 [facility] Comment on above: Performed By: #### C BC #### [facility] [address] [place] [address] Dr. Dustin Hoover Hematocrit (Bld) [Volume fraction] 39.7 % Normal 36.0-48.0 [facility] Comment on above: Performed By: #### C BC #### [facility] [address] [place] [address] Dr. Dustin Hoover Hemoglobin (Bld) [Mass/Vol] 12.4 g/dL Normal 12.0-16.0 [facility] Comment on above: Performed By: #### C BC #### [facility] [address] [place] [address] Dr. Dustin Hoover IG # 0.13 10e3/ul Critically high 0.00-0.03 [facility] Comment on above: Performed By: #### C BC #### [facility] [address] [place] [address] Dr. Dustin Hoover IG % 0.7 % Critically high 0.0-0.5 [facility] Comment on above: Performed By: #### C BC #### [facility] [address] [place] [address] Dr. Dustin Hoover LYMPH # 4.1 103/ul Critically high 1.2-3.8 [facility] Comment on above: Performed By: #### C BC #### [facility] [address] [place] [address] Dr. Dustin Hovoer Lymphocytes/100 WBC (Bld) 22.9 % Normal 20.5-60.0 [facility] Comment on above: Performed By: #### C BC #### [facility] [address] [place] [address] Dr. Dustin Hoover MANUAL DIFF REQ NO Normal [facility] Comment on above: Performed By: #### C BC #### [facility] [address] [place] [address] Dr. Dustin Hoover MCH (RBC) [Entitic mass] 23.8 pg Critically low 26.7-34 .0 [facility] Comment on above: Performed By: #### C BC #### [facility] [address] [address] [address] Dustin Hoover MCHC (RBC) [Mass/Vol] 31.2 g/dL Normal 29.9-35.2 [facility] Comment on above: Performed By: #### C BC #### [facility] [address] [address] [address] Dustin Hoover MCV (RBC) [Entitic vol] 76.2 fL Critically low 81.0-99. 0 [facility] Comment on above: Performed By: #### C BC #### [facility] [address] [address] [address] Dustin Hoover MONO # 1.3 103/ul Critically high 0.3-0.8 [facility] Comment on above: Performed By: #### C BC #### [facility] [address] [place] [address] Dr. Dustin Hoover Monocytes/100 WBC (Bld) 7.0 % Normal 1.7-12.0 [facility] Comment on above: Performed By: #### C BC #### [facility] [address] [place] [address] Dr. Dustin Hoover NEUT # 11.9 103/ul Critically high 1.4-6.5 [facility] Comment on above: Performed By: #### C BC #### [facility] [address] [place] [address] Dr. Dustin Hoover Neutrophils/100 WBC (Bld) 66.1 % Normal 43.0-75.0 [facility] Comment on above: Performed By: #### C BC #### [facility] [address] [place] [address] Dr. Dustin Hoover Platelet mean volume (Bld) [Entitic vol] 10.1 fL Normal 9.5-13.5 [facility] Comment on above: Performed By: #### C BC #### [facility] [address] [place] [address] Dr. Dustin Hoover PLT 499 103/ul Critically high 150-450 [facility] Comment on above: Performed By: #### C BC #### [facility] [address] [place] [address] Dr. Dustin Hoover RBC 5.21 106/ul Normal 4.20-5.40 [facility] Comment on above: Performed By: #### C BC #### [facility] [address] [place] [address] Dr. Dustin Hoover WBC 18.0 103/ul Critically high 4.0-11.0 [facility] Comment on above: Performed By: #### C BC #### [facility] [address] [place] [address] Dr. Dustin Hoover FREE T4on 05-25-2022 Free T4 [Mass/Vol] 0.82 ng/dL Normal 0.76-1.46 [facility] Comment on above: Performed By: #### P TT, PT #### [facility] [address] [place] [address] Dr. Dustin Hoover GLYCOHEMOGLOBIN A1Con 2022 ADA RECOMMENDATION SEE BELOW Normal [facility] Comment on above: Result Comment: ADA RECOMMENDED LIMIT 4.0 - 6.0 ADA THERAPEUTIC TARGET < 7.0 ACTION SUGGESTED > 7.0 Performed By: #### A 1C #### [facility] [address] [place] [address] Dr. Dustin Hoover Glucose [Mass/Vol] 108 mg/dL Normal [facility] Comment on above: Performed By: #### A 1C #### [facility] [address] [place] [address] Dr. Dustin Hoover HbA1c (Bld) [Mass fraction] 5.4 % Normal 4.5-6.2 [facility] Comment on above: Performed By: #### A 1C #### [facility] [address] [place] [address] Dr. Dustin Hoover PREG QUANT HCGon 05-25-2022 HCG QUANT 1 mIU/mL Normal [facility] Comment on above: Performed By: #### P TT, PT #### [facility] [address] [place] [address] Dr. Dustin Hoover HCG RANGE SEE BELOW Normal [facility] Comment on above: Result Comment: 5-50 0.2-1 WEEK 50-500 1-2 WEEKS 100-5,000 2-3 WEEKS 500-10,000 3-4 WEEKS 1,000-50,000 4-5 WEEKS 10,000-100,000 5-6 WEEKS 15,000-200,000 6-8 WEEKS 10,000-100,000 2-3 MONTHS Performed By: #### P TT, PT #### [facility] [address] [address] [address] Dustin Hoover TSHon 05-25-2022 TSH 2.768 uIU/mL Normal 0.358-3.740 [facility] Comment on above: Performed By: #### P TT, PT #### [facility] [address] [place] [address] Dr. Dustin Hoover Vital Signs Date Time Vital Sign Value Performing Clinician Facility 06-25-2023 15:14-0400 Body temperature 98.1 [degF] [facility] 06-25-2023 15:14-0400 Diastolic blood pressure 88 mm[Hg] [facility] 06-25-2023 15:14-0400 Heart rate 105 /min [facility] 06-25-2023 15:14-0400 Respiratory rate 18 /min [facility] 06-25-2023 15:14-0400 SaO2% (BldA) [Mass fraction] 95 % [facility] 06-25-2023 15:14-0400 Systolic blood pressure 119 mm[Hg] [facility] 06-23-2023 14:22-0400 Body height 157.48 cm [facility] 06-22-2023 22:00-0400 Body weight 147.41 kg [facility] 06-03-2023 21:42-0400 Body mass index (BMI) [Ratio] 59.55 kg/m2 [employer] DO Work Phone: [facility] 06-03-2023 21:42-0400 Body weight 147.69 kg [employer] DO [facility] 05-28-2023 18:56-0400 Body mass index (BMI) [Ratio] 61.16 kg/m2 Butch Oliva DO Work Phone: [employer] 05-28-2023 18:56-0400 Body weight 151.68 kg Butch Oliva DO [facility] 05-28-2023 18:56-0400 Diastolic blood pressure 68 mm[Hg] Butch Oliva DO [facility] 05-28-2023 18:56-0400 Heart rate 71 /min Butch Oliva DO [facility] Phone[facility] 05-28-2023 18:56-0400 Systolic blood pressure 104 mm[Hg] Butch Oliva [employer] [facility] 05-18-2023 19:08-0400 Body mass index (BMI) [Ratio] 60.36 kg/m2 Megan Cash APRN-THAIS Work Phone: [facility] 05-18-2023 19:08-0400 Body temperature 98.01 [degF] Megan Cash APRN-AIR TRAFFIC CONTROL EQUIPMENT REPAIRER Work Phone: [facility] 05-18-2023 19:08-0400 Body weight 149.69 kg Megan Cash APRN-AIR TRAFFIC CONTROL EQUIPMENT REPAIRER Work Phone: [employer] 05-18-2023 19:08-0400 Diastolic blood pressure 68 mm[Hg] Megan Cash APRN-AIR TRAFFIC CONTROL EQUIPMENT REPAIRER Work Phone: [facility] 05-18-2023 19:08-0400 Heart rate 71 /min Megan Cash APRN-AIR TRAFFIC CONTROL EQUIPMENT REPAIRER Work Phone: [facility] 05-18-2023 19:08-0400 Respiratory rate 18 /min Megan Cash APRN-AIR TRAFFIC CONTROL EQUIPMENT REPAIRER Work Phone: [facility] 05-18-2023 19:08-0400 SaO2% (BldA) [Mass fraction] 98 % Megan Cash [employer]-AIR TRAFFIC CONTROL EQUIPMENT REPAIRER [facility] 05-18-2023 19:08-0400 Systolic blood pressure 104 mm[Hg] Megan JEWELL Work Phone: [facility] 05-14-2023 18:39-0500 Body mass index (BMI) [Ratio] 57.5 kg/m2 Butch Furlong DO Work [facility]: [facility] 05-14-2023 18:39-0500 Body temperature 97.59 [degF] Butch Furlong DO Work [facility] 05-14-2023 18:39-0500 Body weight 142.61 kg Butch Furlong DO Work [facility] 05-14-2023 18:39-0500 Diastolic blood pressure 68 mm[Hg] Butch Furlong DO Work [facility] 05-14-2023 18:39-0500 Heart rate 90 /min Butch Furlong DO Work [facility] 05-14-2023 18:39-0500 Respiratory rate 18 /min Butch Furlong DO Work [facility] 05-14-2023 18:39-0500 SaO2% (BldA) [Mass fraction] 98 % Butch Furlong DO Work [facility] 05-14-2023 18:39-0500 Systolic blood pressure 110 mm[Hg] Butch Furlong DO Work [facility] 04-30-2023 17:38-0500 Body height 157.5 cm Butch Furlong DO Work [facility]: [facility] 04-30-2023 17:38-0500 Body mass index (BMI) [Ratio] 56.53 kg/m2 Butch Furlong DO [facility] 04-30-2023 17:38-0500 Body temperature 97.81 [degF] Butch Tonglong DO Work [facility] 04-30-2023 17:38-0500 Body weight 140.2 kg Butch Furlong DO Work [facility]: [facility] 04-30-2023 17:38-0500 Diastolic blood pressure 62 mm[Hg] Butch Furlong DO Work [facility] 04-30-2023 17:38-0500 Heart rate 106 /min Butch Tonglong DO Work [facility] 04-30-2023 17:38-0500 Respiratory rate 20 /min Butch Tonglong DO Work [facility] 04-30-2023 17:38-0500 SaO2% (BldA) [Mass fraction] 91 % Butch Oneilng DO Work Phone: [facility] 04-30-2023 17:38-0500 Systolic blood pressure 99 mm[Hg] Butch Tonglong DO Work Phone: [facility] Encounters Encounter Date Encounter Type Care Provider Facility Start: 09-30-2023 End: 09-30-2023 Patient encounter procedure Edward Arita DO Work Phone: Orthopaedics Comment on above: Primary osteoarthrit is of both hips (Primary Dx) Start: 09-22-2023 End: 09-22-2023 ambulatory EMILY ROSITA Not Available Start: 09-20-2023 End: 09-20-2023 ambulatory EMILY ROSITA Not Available Start: 09-03-2023 End: 09-03-2023 ambulatory July Morrison [...] Available Start: 07-08-2023 End: 07-08-2023 ambulatory CHEL RAMSEY [facility] Start: 2023 End: 2023 ambulatory TRAV VALDOVINOS Not Available Start: 06-23-2023 Non-patient / Non-visit [facility] Work Phone: Start: 06-22-2023 End: 06-25-2023 Evaluation and management of inpatient [address] Work Phone: Start: 06-22-2023 End: 06-22-2023 Emergency department patient visit BUTCH OLIVA [facility] Start: 06-22-2023 ambulatory NON STAFF Facility:[facility] Start: 06-03-2023 ambulatory Butch robins DO Work Phone: [facility] Comment on above: Pedal edema (Primary Dx); Intertrigo; Morbid obesity ([facility]-HCC) Start: 05-28-2023 ambulatory Butch robins DO Work Phone: [facility] Comment on above: Bilateral primary os teoarthritis of hip (Primary Dx); Muscle weakness (generalized); Other abnormalities of gait and mobility; Spinal stenosis of lumbar region, unspecified whether neurogenic claudication present Start: 05-18-2023 Continuing Care Megan ga APRN-AIR TRAFFIC CONTROL EQUIPMENT REPAIRER Work Phone: [facility] Comment on above: Spinal stenosis of l umbar region, unspecified whether neurogenic claudication present (Primary Dx); Bipolar affective disorder, current episode mixed, current episode severity unspecified (CMS-HCC); Primary osteoarthritis of both hips; Schizophrenic disorder ([facility]); Class 3 severe obesity due to excess calories with serious comorbidity and body mass index (BMI) of 60.0 to 69.9 in adult ([facility]); Full code status Start: 05-14-2023 Continuing [...] episode mixed, current episode severity unspecified (CMS-HCC); Anxiety; Primary osteoarthritis of both hips; TB lung, latent; Schizophrenic disorder (CMS-HCC); Class 3 severe obesity due to excess calories without serious comorbidity with body mass index (BMI) of 50.0 to 59.9 in adult ([facility]-HCC) Start: 04-26-2023 Registered [facility] Start: 07-23-2022 ambulatory DEMETRIA SHAMMO Facility:H 1 Start: 06-30-2022 ambulatory DEMETRIA SHAMMO Facility:H 1 Start: 06-16-2022 End: 06-17-2022 ambulatory DEMETRIA SHAMMO Facility:[facility] Start: 06-09-2022 ambulatory DEMETRIA SHAMMO Facility:H 1 Start: 06-02-[address] EMILY BECKER . Facili ty:H1 Start: 05-29-2022 Encounter for genera l adult medical examination without abnormal findings DEMETRIA SHAMMO [facility] Start: 05-28-2022 End: 05-28-[address] [...] Date Procedure Procedure Detail Performing Clinician Start: 09-30-2023 Arthrocentesis aspir &/inj major jt/bursa w/us Edward D Arita DO Work Phone: Start: 09-30-2023 End: 09-30-2023 Arthrocentesis aspir&/inj major jt/bursa w/us Edward D Arita DO Work Phone: Start: 09-03-2023 Arthrocentesis aspir &/inj major jt/bursa w/o us Tang Sloan PA-C Work Phone: Plan of Treatment Date Care Activity Detail Author Start: 05-28-2032 DTaP,Tdap and Td Vaccines (2 - Td or Tdap) DTaP,Tdap and Td Vaccines (2 - Td or Tdap) [facility] Start: 05-28-2032 Urine microalbumin profile DTaP,Tdap,Td Vaccine (2 - Td or Tdap) [facility] Start: 03-09-2026 Screening for malign ant neoplasm of cervix Cervical Cancer Screening [facility] Start: 05-27-2024 Adult BMI Screening Adult BMI [...] [facility] Start: 11-07-2023 Influenza vaccination [facility] Start: 09-30-2023 End: 09-30-2023 Patient encounter procedure 09/30/2023 9:15 AM EDT Office Visit Orthopaedics [address] [place] [address] Edward Arita, [address] [place] [address] Bilateral USGI Hip injections Orthopaedics Comment on above: Bilateral USGI Hip i njections Start: 06-25-2023 [facility] Start: 06-24-2023 Referral to paperhanger and painter [facility] Start: 06-24-2023 Referral to clinical real estate job titles [facility] Start: 06-22-2023 Hospital admission [facility] Start: 06-22-2023 [facility] Start: 03-08-2023 Behavioral Health Screening Behavioral Health Screening [facility] Start: 11-06-2022 Covid-19 Vaccine ( season) Covid-19 Vaccine () [facility] Start: 11-06-2022 Influenza vaccination Influenza Vacc ine [facility] Start: 2019 Screening for malign ant neoplasm of breast Mammogram Screening [facility] Start: 06-28-2000 Screening for malign ant neoplasm of cervix Pap Smear [facility] Start: 06-28-1998 Hepatitis B Vaccine (1 of 3 - 19+ 3-dose series) Hepatitis B Vaccine (1 of 3 - 19+ 3-dose series) [facility] Start: 06-28-1997 Adult BMI Follow Up Plan Adult BMI Follow Up Plan [facility] Start: 06-28-1997 Anxiety Screening Anxiety Screening [facility] Start: 06-28-1997 Depression Screening Depression Scre ing [facility] Start: 06-28-1997 HIV screening HIV Screening [facility] Start: 1991 Depression Screening Depression Scre [facility] Start: 06-28-1985 Pneumococcal vaccination Pneumococcal Vaccine (1 of 2 - PCV) [facility] Start: 1979 Tobacco Counseling Tobacco Counselin g [facility] Patient Education Depression, Ad ult (DC) [facility] [place] Instructions [facility] Work Phone: Patient referral [facility] Work Phone: Immunizations Immunization Date Immunization Notes Care Provider Fa natalie 05-28-2022 tetanus toxoid, redu radha diphtheria toxoid, and acellular pertussis vaccine, adsorbed Butch Oliva DO Work Phone: [facility] Payers Date Payer Category Payer Private Health Insurance HUMANA HU[employer]NA MEDICAID [facility] [id number] 2023-Present [address] [address] [place] [address] Medicaid [id number] 2023 Self-pay 2022 Medicaid [facility] [employer] [place] [id number] 2022-Present [phone] [address] [place] [address] [id number] 2006 Medicaid [id number] 1979 Unknown [id number] [id number] 1979 Unknown [id number] 2.16.840.1.507306.3.579.2.5 1979 Unknown [id number] 2.16.840.1.691671.3.579.2.5 1979 Unknown [id number] 2.16.840.1.598405.3.579.2.5 1979 Unknown [id number] 2.16.840.1.519159.3.579.2.5 1979 Unknown [id number] 2.16.840.1.359612.3.579.2.5 1979 Unknown [id number] 2.16.840.1.132093.3.579.2.5 1979 Unknown [id number] 2.16.840.1.561548.3.579.2.5 93 1979 Unknown [id number] 2.16.840.1.294976.3.579.2.5 93 1979 Unknown [id number] 2.16.840.1.982777.3.579.2.5 93 1979 Unknown [id number] 2.16.840.1.103701.3.579.2.5 93 1979 Unknown [id number] 2.16.840.1.204740.3.579.2.1 286 1979 Unknown [id number] 2.16.840.1.663682.3.579.2.1 286 1979 Unknown [id number] 2.16.840.1.260878.3.579.2.1 259 1979 Unknown [id number] 2.16.840.1.170785.3.579.2.1 259 1979 Unknown [id number] 2.16.840.1.756384.3.579.2.1 259 1979 Unknown [id number] 2.16.840.1.687292.3.579.2.1 259 1979 Unknown [id number] 2.16.840.1.498691.3.579.2.1 259 1979 Unknown [id number] 2.16.840.1.890137.3.579.2.1 259 Unknown [id number] 2.16.840.1.408289.3.579.2.5 31 Unknown [id number] 2.16.840.1.876925.3.579.2.5 31 Social History Date Type Detail Facility Start: 05-17-2007 End: 04-30-2023 Tobacco smoking status ARIS Smokes tobacco daily [facility] Start: 03-08-1989 History of tobacco use Cigarette Smoker [facility] Start: 04-30-2023 End: 09-03-2023 Cigarettes smoked current (pack per day) - Reported 0.3 [facility] History of tobacco use Passive smoker [facility] Start: 04-30-2023 Tobacco use and exposure Smokeless [...] 06-24-2023 Tobacco smoking status NHIS Smoker (finding) [facility] Start: 1980 Sex Assigned At Female [facility] Start: 07-07-2010 Alcohol intake Current non-drinker of alcohol (finding) [facility] Tobacco smoking stat us NHIS Tobacco smoking consumption unknown [facility] Goals Date Patient Goal Desired Activity /State Functional Status Date Assessment Result Facility 06-25-2023 Functional status Patient at Baseline [facility] Work Phone: Mental Status Date Assessment Result Facility 06-25-2023 Cognitive function Cognitive Sta tus Patient at Baseline [facility] Work Phone: Clinical Notes 05-21-2022 to 09-30-2023 Edward Arita DO - 09/30/2023 11:42 AM EDTPatient Tang Chong PA-C - 09/03/2023 9:00 AM July Arrieta RT(R) - 09/03/2023 8:51 AM EDT Note Date & Type Note Facility 09-30-2023 History of Presen t illness Narrative Associated Order(s): Large Joint Arthro/Inj: bilateral hip joints Post-Procedure Diagnose(s): Primary osteoarthritis of both hips Patient presents for a bilateral hips injection. Large Joint Arthro/Inj: bilateral hip joints Informed Consent Consent Obtained: Verbal [place] Protocol A moment to CARE was completed. SIGN IN Personnel directly involved with the procedure wore the appropriate PPE. Special Equipment: N/A Patient/Surrogate Stated/Verified: Patient name, Date of , Relevant allergies and Intended procedure TIME OUT Intended patient and procedure match the source document(s). Relevant labs, photos, and/or imaging studies have been reviewed. Correct side/site marked and visible. Medications required for procedure verified. No fire risk assessment and interventions applicable. No implant(s) inserted. 09/30/2023 11:43 AM The procedure site was prepped in the usual sterile fashion. Site: bilateral hip joints Details:Musculoskeletal ultrasound was utilized to successfully localize placement of the injection needle at the appropriate site. Ultrasound images demonstrating local vasculature and demonstrating injection of solution were saved. Medications (Right): 40 mg triamcinolone acetonide 40 mg/mL Medications (Left): 40 mg triamcinolone acetonide 40 mg/mL Anesthetics (Right): 4 mL lidocaine (PF) 10 mg/mL (1 %) Anesthetics (Left): 4 mL lidocaine (PF) 10 mg/mL (1 %) Outcome: Tolerated well, no immediate complications Post-injection instructions were reviewed with the patient and the patient voiced understanding of these instructions. SIGN OUT All instruments, equipment, possible retained foreign bodies accounted for. Post-procedure follow-up management communicated and Plan of Care Visit completed when applicable (M16.0) Primary osteoarthritis of both hips (primary encounter diagnosis) Edward Arita DO 09/30/2023 documented in this encounter [facility] 09-03-2023 Instructions Tang Sloan PA-C - 09/03/2023 [...] MUCH MORE DANGEROUS. documented in this encounter [facility] 09-03-2023 Note HNO ID: [id number] Author: TANG SLOAN PA-C Service: ? Author Type: Physician Risk Adjustment Specialist Type: Progress Notes Filed: 09/07/2023 16:29 Note Text: SERVICE DATE: September 03, 2023 PCP: No [...] She reports that she moved here from [place] and moved in with her sisters in the last few years but moved into a halfway in the last year when she could not get around or do self-care. She is now living in a halfway facility. Has significant pain in her back [...] gabapentin and methadone all given at the halfway without great pain control. She has done physical therapy as well. She has schizoaffective disorder but otherwise is fairly healthy. She notes that her weight was 268 when she entered the halfway but is now 320. Pain level is [...] Left Hip PAST MEDICAL HISTORY Diagnosis Date - Cellulitis and abscess of trunk 2010 - Herpes simplex - Obesity PAST SURGICAL HISTORY Procedure Laterality Date - PAST SURGICAL HISTORY OF 1994 EXCISION OF LINGUAL TONSIL - PAST SURGICAL HISTORY OF 1999 ECTOPIC - PAST SURGICAL HISTORY OF 2004 SECTION - PAST SURGICAL HISTORY OF 2010 IANDD ABDOMINAL WALL ABSCESS FAMILY HISTORY Problem Relation Age of Onset - Cervical Cancer Maternal Grandmother - Cervical Cancer Maternal Aunt Social History Tobacco Use - Smoking status: Every Day Packs/day: 25.00 Years: 15.00 Additional pack years: 0.00 Total pack years: 375.00 Types: Cigarettes Substance Use Topics - Alcohol use: No ALLERGIES Allergen Reactions - Flagyl [Metronidazo* Hives - Zofran [Ondansetron* Itching MEDICATIONS: - diphenhydrAMINE 25 mg ORAL capsule Take 1 capsule by mouth every 6 hours as needed for Itching/Rash. - docusate sodium 100 mg ORAL capsule Take 1 capsule by mouth twice daily as needed for Constipation. - acetaminophen-codeine 300-30 mg ORAL per tablet Take 1 tablet by mouth as needed (for pain on dressing change.). - linezolid 600 mg ORAL tablet Take 1 [...] is intact bilateral lower extremities. Significant tenderness o (more content not included)... [facility] 09-03-2023 History of Presen t [...] She reports that she moved here from [place] and moved in with her sisters in the last few years but moved into a halfway in the last year when she could not get around or do self-care. She is now living in a halfway facility. Has significant pain in her back [...] gabapentin and methadone all given at the halfway without great pain control. She has done physical therapy as well. She has schizoaffective disorder but otherwise is fairly healthy. She notes that her weight was 268 when she entered the halfway but is now 320. Pain level is [...] been 268 pounds when she entered the halfway and is now 320. She needs to [...] trochanteric bursa Informed Consent Consent Obtained: Verbal [place] Protocol A moment to CARE was completed. [...] of Care Visit completed when applicable Third republican verified by Monae Vaca MA. FOLLOW-UP: Return for appt for bilat hip inj with Ultrasound. SIGNATURE: Tang Scotch, PA-C PATIENT NAME: Jennifer Mendes DATE: September 03, 2023 TIME: 9:09 AM documented in this encounter [facility] 09-03-2023 Note HNO ID: [id number] Author: JULY MORRISON RT(Panfilo) Service: ? Author [...] PATIENT PRESENTS WITH AN IMPLANTABLE OR ATTACHED ONION TOPPER: No RADIOLOGY DEPARTMENT: General X-ray: Exam(s) Completed: Pelvis X-Ray: Pelvis with Hip Bilateral PERIPHERAL IV DATA: Not applicable SIGNED BY: RT Devi(R) September 03, 2023 8:51 AM [facility] 09-03-2023 History of Presen t [...] PATIENT PRESENTS WITH AN IMPLANTABLE OR ATTACHED ONION TOPPER: No RADIOLOGY DEPARTMENT: General X-ray: Exam(s) Completed: Pelvis X-Ray: Pelvis with Hip Bilateral PERIPHERAL IV DATA: Not applicable SIGNED BY: RT Devi(R) September 03, 2023 8:51 AM documented in this encounter [facility] 06-25-2023 Discharge summary Note Date/Time June 25, 2023 7:11am [facility] [address] [place] [address] Discharge Summary Signed Patient: Jennifer Mendes MR#: [id number] : 1980 Acct:[id number] Age/Sex: 42 / F Adm Date: 4 Loc: Room: [address] [place] [address]: Joseph Tello MD Copies to: [...] unit milieu. She has been working with case packer on her aftercare she agreed to continue [...] 99 Discharge Plan Discharge Plan Patient Disposition: custodial AR Care/Resident Activity: With Assist Diet: Regular Additional Instructions: Important Contact Information You can call [facility] at [phone] any time day or night if you have emergent questions or question regarding discharge instructions. If at any time you are feeling an increase inyour psychiatric symptoms, call your physician or behavioral healthcare provider. If any time you have thoughts of harming yourself or others contact one of the following: Call (available 28/09) Crisis Text Line (available 28/09) text 4HOPE to [phone] [facility] Hope Line (available 8 a.m. Midnight) call [phone] ([phone]) Prescriptions: Continued aripiprazole 20 mg tablet 20 [...] signed by Joseph Tello MD> 06/25/23 0711 [facility] Work Phone: 1(402) 904-297404-19-2024 Consult note Author Linsey Pradhan [facility] June 24, 2023 11:55pm Note Date/Time June 24, 2023 12: 47pm [facility] [address] [place] [address] Hospitalist Consult Note Signed Patient: Jennifer Mendes MR#: [id number] : 1980 Acct:[id number] Age/Sex: 42 / F Adm Date: 4 Loc: Room: [address] [place] [address] Type: ADM IN Attending Dr: Joseph Tello MD Copies to: NON STAFF MD Anita Hull, [employer] Linsey Pradhan MD~ HPI DATE OF CONSULTATION: 06/24/23 [...] 06/22/23 21:00 06/24/23 08:44 Duloxetine 60 Mg Capsule. PO 06/21/24 20:59 60 mg BID SUSANNA [...] and plan. Linsey Pradhan MD Documented By: Antia Vann APRN 06/24/23 1244 Signed By: <Electronically signed by CECY Vann> 06/24/231955 <Electronically signed by Linsey Pradhan MD> 06/24/23 5381 [facility] Work Phone: 1(229) 154-502104-18-2024 Progress note Author Joseph martinez [facility] June 24, 2023 6:40am Note Date/Time June 24, 2023 6:4 0am [facility] [address] [place] [address] Psychiatry Progress Note Signed Patient: Jennifer Mendes MR#: [id number] : 1980 Acct:[id number] Age/Sex: 42 / F Adm Date: 4 Loc: Room: [address] [place] [address] Type : ADM IN Attending Dr: Joseph [...] signed by Joseph Tello MD> 06/24/23 0640 [facility] Work Phone: 1(808) 871-684304-17-2024 History and physical note Author Joseph martinez [facility] June 23, 2023 9:03am Note Date/Time June 23, 2023 8:5 8am [facility] [address] [place] [address] Psychiatry H&P Signed Patient: Jennifer Mendes MR#: [id number] : 1980 Acct:[id number] Age/Sex: 42 / F Adm Date: 4 Loc: 1S Room: 1V1198-4 Type: ADM IN Attending Dr: Joseph Tello [...] staff). Documented By: Joseph Tello MD [id number] Signed By: <Electronically signed by Joseph Tello MD> 06/23/23 0903 [facility] Work Phone: 1(593) 379-141203-28-2024 History of Present illness Narrative* Butch Oliva, DO - 06/03/2023 9:42 PM EDT Patient Name: Jennifer Mendes Date of : 1980 Date of Service: 06/03/2023 Facility: [facility] Type of Visit: Skilled Visit Subjective Jennifer Mendes is a 42 y.o. female seen today at [facility] facility for acute visit. Jennifer She was [...] : 1980 Date of Service: 05/28/2023 Facility: [facility] Type of Visit: Skilled Visit Subjective Jennifer Mendes is a 42 y.o. female seen today at [facility] facility for therapy visit. Jennifer is in [...] History of Present illness Narrative* Megan Cash APRN-AIR TRAFFIC CONTROL EQUIPMENT REPAIRER - 05/18/2023 11:59 PM EDT Images from the original note were not included. Patient Name: Jennifer Mendes Date of : 1980 Date of Service: 05/18/2023 Facility: [facility] Type of Visit: Skilled Visit Subjective Jennifer Mendes is a 42 y.o. female seen today at [facility] facility for Chief Complaint Patient presents with Prison . Is attending physical therapy. States sometimes [...] Anemia Anxiety Arthritis Back pain Bipolar disorder ([facility]) Depression Latent tuberculosis infection Obesity Pneumonia Substance abuse ([facility]) Past Surgical History: Procedure Laterality Date FRACTURE [...] current episode mixed, current episode severity unspecified ([facility]) 3. Primary osteoarthritis of both hips 4. Schizophrenic disorder ([facility]) 5. Class 3 severe obesity due to excess calories with serious comorbidity and body mass index (BMI)of 60.0 to 69.9 in adult ([facility]) 6. Full code status Spinal stenosis of lumbar region Awaiting Medicaid approval to pursue pain management. Referral done, sent to [facility]. -Pain controlled with Oxycodone, [...] : 1980 Date of Service: 05/14/2023 Facility: [facility] Type of Visit: Skilled Visit Subjective Jennifer Mendes is a 42 y.o. female seen today at [facility] facility for therapy visit. Jennifer is in [...] : 1980 Date of Service: 04/30/2023 Facility: [facility] Type of Visit: Admission H&P Subjective Jennifer Mendes is a 42 y.o. female seen today at [facility] facility for admission H&P. jennifer presents to [facility] from the [facility] where she was treated for intractable [...] scheduled to see a neurosurgeon up in [place] but then her insurance lapsed and the [...] Abdominal wall cellulitis Anemia Anxiety Bipolar disorder ([facility]) Depression Latent tuberculosis infection Pneumonia Past Surgical [...] current episode mixed, current episode severity unspecified ([facility]) 4. Anxiety 5. Primary osteoarthritis of both hips 6. TB lung, latent 7. Schizophrenic disorder ([facility]) 8. Class 3 severe obesity due to excess calories without serious comorbidity with body mass index (BMI) of 50.0 to 59.9 in adult ([facility]) Admit to [facility] for therapy. She is motivated to improve. She will need pain management and maybe neurosurgery. Fair to good rehab potential. Full code. Continue medications from the hospital. She was treated for TB with INH per pt. Continue doxycycline for syphilis. ELECTRONICALLY SIGNED BY: Butch Oliva DO documented in this encounterSt[facility] HospitalGraph[facility] [id number] NoteCONSULTATION CONSULTATION DATE: 06/16/2022 TO: TRENOTN Johnston CHIEF COMPLAINT: Includes severe left hip [...] our patients to inform us about any jeja-gcy-juicxin medications or herbal remedies/nutritional supplements/alternative remedies. 2. [...] treatment options with their primary care provider.[id number] NotePROCEDURE: XR HIP LT 2 3V W PELVIS HISTORY: Pain ; left hip pain after falling COMPARISON: None. FINDINGS: BONES:Complete loss of the hip joint spaces bilaterally with subchondral sclerosis, wveb-mw-dgyc articulation, and remodeling of the femoral heads and acetabulum. SOFT TISSUES:No visible soft tissue swelling. EFFUSION:None visible. OTHER: Negative. IMPRESSION: 1. No acute bone abnormality. 2. Advanced degenerative changes of hip joints bilaterally. Electronically authenticated by: JEAN CARLOS MEDINA Date: 2022-05-21 11:47[facility] Diagnosis Spinal stenosis of lumbar region, unspecified whether neurogenic claudication present- Primary Syphilis (acquired) Unspecified syphilis Bipolar affective disorder, current episode mixed, current episode severity unspecified ([facility]) Anxiety Anxiety state, unspecified Primary osteoarthritis of both hips TB lung, latent Schizophrenic disorder ([facility]) Unspecified schizophrenia, unspecified condition Class 3 severe obesity due to excess calories without serious comorbidity with body mass index (BMI) of 50.0 to 59.9 in adult ([facility]) documented in this encounter [facility]* Diagnosis Spinal stenosis of lumbar region, unspecified whether neurogenic claudication present- Primary Bilateral primary osteoarthritis of hip Muscle weakness (generalized) Other abnormalities of gait and mobility Bipolar affective disorder, current episode mixed, current episode severity unspecified ([facility]) Schizophrenic disorder ([facility]) Unspecified schizophrenia, unspecified condition documented in this encounter [facility]* Diagnosis Spinal stenosis of lumbar region, unspecified whether neurogenic claudication present- Primary Bipolar affective disorder, current episode mixed, current episode severity unspecified ([facility]) Primary osteoarthritis of both hips Schizophrenic disorder ([facility]) Unspecified schizophrenia, unspecified condition Class 3 severe obesity due to excess calories with serious comorbidity and body mass index (BMI) of 60.0 to 69.9 in adult ([facility]) Full code status documented in this encounter [facility]* Diagnosis Bilateral primary osteoarthritis of hip- Primary Muscle weakness (generalized) Other abnormalities of gait and mobility Spinal stenosis of lumbar region, unspecified whether neurogenic claudication present documented in this encounter [facility]* Diagnosis Pedal edema- Primary Edema Intertrigo Other specified erythematous condition Morbid obesity (CMS-HCC) Morbid obesity documented in this encounter [facility]* Diagnosis Onset Date Resolution Status Chronic pain acute Generalized anxiety disorder acute Major depressive disorder, recurrent, moderate acute [facility] Work Phone: Evaluation note* Diagnosis Primary osteoarthritis [...] region and thigh [facility] Diagnosis Primary osteoarthritis of both hips- Primary Primary localized osteoarthrosis, pelvic region and thigh documented in [facility] encounter [facility] SystemInstructionsNot on filedocumented in this encounterTrinity Health [facility] SystemInstructions* Attachments The following attachments cannot be sent through Care Everywhere. * Bipolar disorder (Welsh) documented in this encounterProW[facility] SystemInstructionsNot on file documented in this encounterTr[facility] SystemInstructionsNot on file documented in this encounterWright-Patterson [...] Referral Specialty Diagnoses / Procedures Referred By Contac t Referred To Contact [facility] Diagnoses Primary osteoarthritis of both hips Trochanteric bursitis of both hips Procedures CONSULT TO PHYSICAL THERAPY PHYSICAL THERAPY EVALUATION HIGH COMPLEX 45 MINS Tang Sloan PA-C [address] [place] [address] [facility] [place] [facility] [place] [address] Referral ID Status Reason Start Date Expiration Date Visits Requested Visits Authorized [id number] Pending Review Auto-Generat ed Referral 09/03/2023 09/02/2024 1 1 Specialty Diagnoses / Procedures Referred By Nazario sanches Referred To Contact XR IMAGING Diagnoses Pain in left hip Pain in right hip Procedures XR HIP BILATERAL 5V PEL/AP/LAT EACH HIP RADEX HIPS BILATERAL WITH PELVIS MINIMUM 5 VIEWS Tang Sloan PA-C [address] [place] [address] [place] [id number] Referral ID Status Reason Start Date Expiration Date V isits Requested Visits Authorized [id number] Closed Auto-Generate d Referral 08/30/2023 09/28/2024 1 1 Additional Source Comments INFORMATION SOURCE (unrecogn ized section and content) DATE CREATED AUTHOR 07/08/2022 [facility] DATE CREATED AUTHOR AUTHOR'S ORGANIZ ATION 07/09/2023 [facility] DATE CREATED AUTHOR AUTHOR'S ORGANIZ ATION 09/03/2023 [facility] DATE CREATED AUTHOR AUTHOR'S ORGANIZ ATION 09/09/2023 [facility] DATE CREATED AUTHOR AUTHOR'S ORGANIZ ATION 09/24/2023 [facility] EPIC Care Teams (unrecognized sec tion and content) Executive Asst Relationship Specialty Start Date End Date No Pcp, [place] [address] PCP - General Family Medicine 10/30/22 Executive Asst Relationship Specialty Start Date End Date No Pcp, [place] [address] PCP - General Family Medicine 10/30/22 Executive Asst Relationship Specialty Start Date End Date No Pcp, [place] [address] PCP - General Family Medicine 10/30/22 Executive Asst Relationship Specialty Start Date End Date No Pcp, [place] [address] PCP - General Family Medicine 10/30/22 Executive Asst Relationship Specialty Start Date End Date No Pcp, [place] [address] PCP - General Family Medicine 10/30/22 Team [...] Quach RN Other Provider Active Start: Ap [facility] 2023 End: June 25, 2023 Fercho [...] 22, 2023 End: June 25, 2023 Ara Cralin MD Other Provider Active Start : June 22, 2023 End: June 25, 2023 Benjy Houser MD Other Provider Active Start: A pril 2023 End: June 25, 2023 Shanda Mata APRN Other Provider Active Start: June 22, 2023 End: June 25, 2023 Lnisey Pradhan MD Other Provider Active Start: June [...] Apr il 2023 End: June 25, 2023 Lyudmila Toribio NP-C Other Provider Active St art: June 22, 2023 End: June 25, 2023 Mark Leavitt APRN Other Provider Active Star t: June 22, 2023 End: June 25, 2023 Almas Rayo MD Other Provider Active Start: June 22, 2023 End: June 25, 2023 Adonis Do MD Other Provider Active Start: Ap [facility] 2023 End: June 25, 2023 Sedrick Ramirez MD Other Provider Active Start: Apr il 2023 End: June 25, 2023 Amber Jones MD Other Provider Active Star t: June 22, 2023 End: June 25, 2023 Trey Rothman MD Other Provider Active Start: A pril 2023 End: June 25, 2023 Allison Marin DO Other Provider Active Start: Ap [facility] 2023 End: June 25, 2023 Inocencio [...] End: June 25, 2023 Jluis Harrell , Other Provider Active Star t: June 22, [...] (unrecogniz ed section and content) Reason Comments Prison Reason Comments Radiology XR Reason Comments New Pain Reason Comments Injections Hip Pain Specialty Diagnoses / Procedures Referred By Contac t Referred To Contact Orthopedics / ORTHOPAEDIC SURGERY Diagnoses Bilateral USGI Hip injections Procedures SERENA INJECT 1 Tang Sloan PA-C [address] [place] [address] Edward Arita DO [address] [place] [address] Referral ID Status Reason Start Date Expiration Date V isits Requested Visits Authorized [id number] Closed Financial Clearance Not Required 09/30/2023 10/31/2023 1 1 Source Comments (unrecognize d section and content) In the event this informatio n is protected by the Federal Confidentiality of Alcohol and Drug Abuse Patient Records regulations: The Federal rules restrict any use of the information to criminally investigate or prosecute any alcohol or drug abuse patient.[facility] the event this information is protected by the Federal Confidentiality of Alcohol and Drug Abuse Patient Records regulations: The Federal rules restrict any use of the information to criminally investigate or prosecute any alcohol or drug abuse patient.[facility] SystemIn the event this information is protected by the Federal Confidentiality of Alcohol and Drug Abuse Patient Records regulations: The Federal rules restrict any use of the information to criminally investigate or prosecute any alcohol or drug abuse patient.[facility] FOR RECORDS PERTAINING TO PATIENTS WHO ARE [...] BE BASED ON THE PRIMARY CLINICAL RECORDS. [facility] [employer] [facility]. provides no warranty or guarantee of the accuracy or completeness of information in this document.
[2023-10-12 12:28] LABS: Anion Gap 10.7; BUN Creatinine Ratio 28.4; Carbon Dioxide 30.3 mmol/L (21.0-32.0); Chloride 103 mmol/L (98-107); Estimated GFR (African America >60 (>=60); Estimated GFR (Non-African Ame >60 (>=60); Glucose 97 mg/dL (74-106); Sodium 140 mmol/L (136-145)
== END 2023-10-12 11:07 | disposition home or self-care (01) ==
PROVIDERS: PCP Family Medicine; Visit Provider Obstetrics & Gynecology
DX: Z01.812 Encounter for preprocedural laboratory examination (principal); Z01.810 Encounter for preprocedural cardiovascular examination; N92.0 Excessive and frequent menstruation with regular cycle; N93.9 Abnormal uterine and vaginal bleeding, unspecified; R10.2 Pelvic and perineal pain; I10 Essential (primary) hypertension
CPT/HCPCS: 80048; 93005

== ENCOUNTER 2023-10-22 06:28 | Day surgery (SDC) | payer MEDICAID, SELFPAY ==
[2023-10-12 11:52] VITALS: BP 95/71; PULSE 88; TEMP 36.4; O2SAT 95; BMI 57.1
[2023-10-22] VITALS (23 sets, daily range): BP systolic 102–158; BP diastolic 71–105; PULSE 83–100; TEMP 36.6–36.7; O2SAT 93–97; BMI 58.1
--- OUTSIDE RECORDS SUMMARY | 2023-10-22 06:31 | XMS_ITS | CCD ---
Author Organization [facility] Care Team Providers Care Full Time Staff Interpreter Name Role Phone SHAMMO, DEMETRIA Primary Care [...] e MD Joseph Tello Attending Provider [phone] MD Joseph Tello Admit Provider ANA MARIA [...] Sneed Other Provider MIR Toribio Other Provider [phone] Born, PUBLICISTGloria Diaz Other Provider Unavailable MD Almas Rayo Other Provider MD Adonis Do Other Provider MD Sedrick Ramirez Other Provider MD Amber Jones Other Provider Unavailable MD Trey Rothman Other Provider DO Allison Marin Other Provider DO Inocencio Andino Other Provider CECY Vann Other Provider DO Vick Dorsey Other Provider MD Chapin Bell Other Provider CECY Fuentes Other Provider [phone] CECY Chisholm Other Provider MD Taras Dunbar Other Provider MD Rickie Lobo Other Provider DO Jluis Harrell Other Provider DO Ramez Mock Other Provider MD Rubén Ramirez P Other Provider ANA MARIA Blackwood Other Provider Unavailable KETTY Vazquez Other Provider MD Van Moore Other Provider MD Hugo Randolph Other Provider BUTCH OLIVA Primary Care Unavailable JESSICA BRADFORD Attending Unavailable CHEL RAMSEY Attending Unavailable BUTCH OLIVA Referring Unavailable BUTCH OLIVA Primary Care Unavailable Unavailable Primary Care Provider Unavailbelen e TANG SLOAN Attending Unavailable SCOTTANG WEBB Referring Unavailable TRAV VALDOVINOS Attending Unavailable TRAV VALDOVINOS Referring Unavailable TRAV VALDOVINOS Attending Unavailable EMILY BECKER Attending Unavailable EMILY BECKER Attending Unavailable EMILY BECKER Attending Unavailable NON STAFF Primary Care Unavailable Amy Schwartz Consulting Unavailable Joseph Tello Attending Unavailab Joseph Cavanaugh Admitting Unavailab Lorena Hurtado Consulting Unavailable Angelica Cheney Consulting Unavailable Tawanna [...] Consulting Unavailable Trey Rothman Consulting Unavailable Allison Mrain Consulting Unavailable Inocencio Andino Consulting Unavailable ObAnita jones Consulting Unavailable Vick Dorsey Consulting Unavailable DaromarChapin Consulting Unavailable Becky Fuentes Consulting Unavailable Autumn Chisholm Consulting Unavailable Alalibertyad Alabeatris Consulting Unavailable Rickie Lobo Consulting Unavailable Jluis Harrell Consulting Unavailable Ramez Mock Consulting Unavailable Rubén Ramirez Consulting Unavailable Candice Blackwood Consulting Unavailable Wilda Vazquez Consulting Unavailable Van Moore Consulting Unavailable Hugo Randolph Consulting Unavailable NON STAFF Primary Care Unavailable Joseph Tello Attending Unavailab Joseph Cavanaugh Admitting Unavailab le Allergies Allergy Classification Reported Allergen(s) Allergy Type Date of Onset Reaction(s) Facility Nitroimidazoles (antibiotic) (1 source) metroNIDAZOLE Drug Allergy 8 [facility] Ondansetron (1 source) Ondansetron Drug Allergy 1 Itching [facility] (1 source) metroNIDAZOLE Drug Allergy 3 [facility] Rep[facility] (7 sources) metroNIDAZOLE; Translations: [METRONIDAZOLE] Drug Allergy 8 Nausea, [facility] (9 sources) Ondansetron; Translations: [ONDANSETRON HCL] Drug Allergy 1 Itching [facility] (3 sources) metroNIDAZOLE; Translations: [METRONIDAZOLE HCL] Drug Allergy 8 [facility] (1 source) metroNIDAZOLE Drug Allergy 4 [facility] Repository Medications Current Medications Medication Drug [...] Start: 02-06-2023 take 1 capsule by mo [facility] in the morning DULoxetine 40 mg [...] 12:00am Start: 02-28-2023 take 1 tablet by [facility] every eight hours as needed ibuprofen (MOTRIN) [...] hip joints Informed Consent Consent Obtained: Verbal [place] Protocol A moment to CARE was completed. [...] Plan of Care Visit completed when applicable [facility] US HIP-INJECTION LT (POC) OR I USE ONLYon 09-30-2023 [facility] US HIP-INJECTION RT (POC) OR I USE ONLYon 09-30-2023 [facility] CNOVon 09-03-2023 CNOV Office Visit (LOORRM ) JENNIFER MENDES ([id number]) 1980 F [facility] Date Time Provider Department 09/03/23 8:30 AM TANG SLOAN During your visit today, we recorded the following information about you: Tang Sloan PA-C 09/07/2023 4:29 PM Signed SERVICE DATE: [...] She reports that she moved here from [place] and moved in with her sisters in [...] 4/5 Other (more content not included)... Normal [facility] Large Joint Arthro/Inj: R gr eater trochanteric bursaon 09-03-2023 Tang Sloan PA-C 09/07/2023 4:29 PM Large Joint Arthro/Inj: R greater trochanteric bursa Informed Consent Consent Obtained: Verbal [place] Protocol A moment to CARE was completed. [...] alliance party verified by Monae Vaca MA. [facility] XR HIP JORGE LUIS 5V PEL+ [...] No fracture. IMPRESSION: SEVERE BILATERAL HIP OSTEOARTHRITIS. Concrete Finisher: PSCB Transcribe Date/Time: Sep 03 2023 11:04A Dictated by : EVA ZARATE MD This examination was interpreted and the report reviewed and electronically signed by: EVA ZARATE MD on Sep 03 2023 11:05AM EST [id number] Normal [facility] XR HIP BILATERAL 5V PEL/AP/L AT EACH HIPon 09-03-2023 IMPRESSION: SEVERE BILATERAL HIP OSTEOARTHRITIS. Concrete Finisher: FAY Transcribe Date/Time: Sep 03 2023 11:04A Dictated by : EVA ZARATE MD This examination was interpreted and the report reviewed and electronically signed by: EVA ZARATE MD on Sep 03 2023 11:05AM [facility] DIVISION OF RADIOLOGY * * *Final Report* [...] pubis. No fracture. DIVISION OF RADIOLOGY Provider, [facility] - 09/03/2023 * * *Final Report* * [...] fracture. IMPRESSION IMPRESSION: SEVERE BILATERAL HIP OSTEOARTHRITIS. Concrete Finisher: FAY Transcribe Date/Time: Sep 03 2023 11:04A Dictated by : EVA ZARATE MD This examination was interpreted and the report reviewed and electronically signed by: EVA ZARATE MD on Sep 03 2023 11:05AM EST [facility] Radiology Study observation (narrative) Jamar owen [facility] XR HIP BILATERAL 5V PEL/AP/L AT EACH HIPOrdered By: Ccf Provider on 09-03-2023 [facility] Cholesterol [Mass/volume] in Serum or PlasmaOrdered By: Joseph Tello on 06-23-2023 Cholesterol [Mass/Vol] 172 mg/dL Normal 140-200 [facility] Comment on above: Chol less than 200 m g/dl low riskChol 201-239 mg/dl borderline riskChol 240 mg/dl and greater high risk Order Comment: FASTI NG Y Result Comment: Chol less than 200 mg/dl low risk Chol 201-239 mg/dl borderline risk Chol 240 mg/dl and greater high risk Performed By: #### T SH3 wRFLX, LIPID, [id number] #### [facility] [address] Cholesterol in LDL Calc [Mas s/Vol]Ordered By: Joseph Tello on 06-23-2023 Cholesterol in LDL [Mass/Vol] 100 mg/dL 0-100 [facility] Comment on above: LDL ATP III CLASSIFI CATIONLDL less than 100 mg/dL OptimalLDL 100-129 mg/dL Near or above optimalLDL 130-159 mg/dL Borderline highLDL 160-189 mg/dL HighLDL greater than 189 mg/dL Very high Cholesterol in VLDL Calc [Ma ss/Vol]Ordered By: Joseph Tello on 06-23-2023 Cholesterol in VLDL [Mass/Vol] 44 mg/dL [facility] ECG 12 lead ECGon 06-23-2023 ECG 12 lead ECG [facility] [address] [place] [address] Electrocardiograph Report Signed Patient: Jennifer Mendes MR#: [id number] : 1980 Acct:[id number] Age/Sex: 42 / F ADM Date: 06/22/23 Loc: Room: 9C3905-2 Type: ADM IN Attending Dr: Joseph Tello [...] previous ECGs available Confirmed by Sekou Maciel ([id number]) on 06/23/2023 11:23:15 AM Referred By: Electronically Signed By:Sekou Maciel Transcribed By: MUS Signed By Sekou Maciel MD 06/23/23 1123 Normal [facility] Lipid Panelon 06-23-2023 LDL Cholesterol,Calculated 100 mg/dL Normal 0-100 [facility] Comment on above: Order Comment: ANGELIQUE Ornelas Result Comment: LDL ATP III CLASSIFICATION LDL less than 100 mg/dL Optimal LDL 100-129 mg/dL Near or above optimal LDL 130-159 mg/dL Borderline high LDL 160-189 mg/dL High LDL greater than 189 mg/dL Very high Performed By: #### T SH3 wRFLX, LIPID, [id number] #### [facility] [address] Triglyceride w/Reflex 220 mg/dL High 0-149 [facility] Comment on above: Order Comment: ANGELIQUE Ornelas Result Comment: TRIG ATP III CLASSIFICATION TRIG less than 150 mg/dL Normal TRIG 150-199 mg/dL Borderline high TRIG 200-500 mg/dL High TRIG greater than 500 mg/dL Very high Standard traceable to the Center for Disease Conrtrol and Prevention (CDC) test method. Performed By: #### T SH3 wRFLX, LIPID, [id number] #### [facility] [address] [place] [id number] [facility] VLDL CHOLESTEROL 44 mg/dL Normal [facility] Comment on above: Order Comment: ANGELIQUE Ornelas Performed By: #### T SH3 wRFLX, LIPID, [id number] #### [facility] [address] [id number] [place] Serum or plasma high density lipoprotein (HDL) cholesterol measurementOrdered By: Joseph Tello on 06-23-2023 Cholesterol in HDL [Mass/Vol] 28 mg/dL Normal 23-92 [facility] Comment on above: HDL CHOL ATP-III CLA SSIFICATION Cardiovascular RiskHDL > or equal to 60 mg/dL LOWHDL < 40 mg/dL HIGH Order Comment: FASTSher NG Y Result Comment: HDL CHOL ATP-III CLASSIFICATION Cardiovascular Risk HDL > or equal to 60 mg/dL LOW HDL < 40 mg/dL HIGH Performed By: #### T SH3 wRFLX, LIPID, [id number] #### [facility] [address] Serum or plasma total choles terol/high density lipoprotein (HDL) cholesterol mass ratOrdered By: Joseph Tello on 06-23-2023 Cholesterol.total/Cholest mitch in HDL [Mass ratio] 6.1 {ratio} Normal <5.0 [facility] Comment on above: Order Comment: FASTI NG Y Performed By: #### T SH3 wRFLX, LIPID, [id number] #### [facility] [address] Thyroid Stim Hormone w/Rflxo n 06-23-2023 Thyroid Stim Hormone w/Rflx 2.27 u[iU]/mL Normal 0.45-5.33 [facility] Comment on above: Order Comment: FASTI NG Y Performed By: #### T SH3 wRFLX, LIPID, [id number] #### [facility] [address] Thyrotropin [Units/volume] i n Serum or PlasmaOrdered By: Joseph Tello on 06-23-2023 TSH Qn 2.27 m[IU]/L 0.45-5.33 [facility] Triglyceride [Mass/volume] i n Serum or PlasmaOrdered By: Joseph Tello on 06-23-2023 Triglyceride [Mass/Vol] 220 mg/dL 0-149 [facility] Comment on above: TRIG ATP III CLASSIF ICATIONTRIG less than 150 mg/dL NormalTRIG 150-199 mg/dL Borderline highTRIG 200-500 mg/dL High TRIG greater than 500 mg/dL Very highStandard traceable to the Center for Disease Conrtrol and Prevention (CDC) test method. Vitamin D 25 Hydroxy Totalon 06-23-2023 Vitamin D 25 Hydroxy Total 13.4 ng/mL Low 30-100 [facility] Comment on above: Order Comment: ANGELIQUE Ornelas Result Comment: DELVIS MIN D STATUS 25(OH)VITAMIN D RANGE (ng/mL) Deficient <20 Insufficient 20 to <30 Sufficient 30 to 100 Reference: Ricky Phipps, Shan KEARNEY, et al. Evaluation,treatment, and prevention of vitamin D deficiency; an Endocrine Society clinical practice guideline. JCEM. 2010; 96(7):1911-30. PERFORMED BY: [place] [address] PATHOLOGIST SEARCH ENGINE OPTIMIZATION MANAGER JANNETTE ROTHMAN M.D. Performed By: #### T SH3 wRFLX, LIPID, [id number] #### [facility] [address] Vitamin D+Metabolites [Mass/ volume] in Serum or PlasmaOrdered By: Joseph Tello on 06-23-2023 Vitamin D+Metabolites [Mass/Vol] 13.4 ng/mL 30-100 [facility] Comment on above: VITAMIN D STATUS 25( [place])VITAMIN D RANGE (ng/mL) Deficient <20 Insufficient 20 to <30Sufficient 30 to 100Reference: Ricky Phipps, Shan KEARNEY, et al. Evaluation,treatment, and prevention of vitamin D deficiency; an Endocrine Society clinical practice guideline. JCEM. 2010; 96(7):1911-30. ACETAMINOPHENon 06-22-2023 Acetaminophen [Mass/Vol] 5.1 ug/mL Low 10.0-30.0 [facility] Comment on above: Result Comment: Refe rence ranges are for therapeutic limits. Performed By: #### C MP, 4024-6, 5643-2, 3298-7, CBCA #### [facility] ([id number]) [address] [place] [address], [place] [address] CBC AND AUTO DIFFon 06-22-19 24 ABSOLUTE BASOPHIL 0.2 X10E9/L Normal 0.0-0.2 [facility] Comment on above: Performed By: #### C CHANTELL, 4024-6, 5643-2, 3297-09, CBCA #### [facility] ([id number]) [address] [place] [address] 38381 ABSOLUTE NEUTROPHIL 8.5 X10E9/L High 1.5-6.6 [facility] Comment on above: Performed By: #### C CHANTELL, 4024-6, 5643-2, 3297-09, CBCA #### [facility] ([id number]) [address] [place] [address] 85533 Basophils/100 WBC (Bld) 1.5 % Normal [facility] Comment on above: Performed By: #### C CHANTELL, [facility]-6, 5643-2, 3297-09, CBCA #### [facility] ([id number]) [address] [place] [address] 47294 Eosinophils (Bld) [#/Vol] 0.9 10*3/uL High 0.0-0.4 [facility] Comment on above: Performed By: #### C CHANTELL, 4024-6, 5643-2, 3297-09, CBCA #### [facility] ([id number]) [address] [place] [address] 78100 Eosinophils/100 WBC (Bld) 6.5 % Normal [facility] Comment on above: Performed By: #### C CHANTELL, 4024-6, 5643-2, 3297-09, CBCA #### [facility] ([id number]) [address] [place] [address] 69363 Erythrocyte distribution width (RBC) [Ratio] 18.1 % High 11.5-15.0 [facility] Comment on above: Performed By: #### C CHANTELL, 4024-6, 5643-2, 3297-09, CBCA #### [facility] ([id number]) [address] [place] [address] 08877 Hematocrit (Bld) [Volume fraction] 35.5 % Normal 35-47 [facility] Comment on above: Performed By: #### C CHANTELL, 4024-6, 5643-2, 3297-09, CBCA #### [facility] ([id number]) [address] [place] [address] 67646 Hemoglobin (Bld) [Mass/Vol] 11.2 g/dL Low 11.7-15.5 [facility] Comment on above: Performed By: #### C CHANTELL, [facility]6, 5642-2, 3297-09, CBCA #### [facility] ([id number]) [address] [place] [address] 11908 Lymphocytes (Bld) [#/Vol] 3.1 10*3/uL Normal 1.0-3.5 [facility] Comment on above: Performed By: #### C CHANTELL, [facility]-6, 5642-, 3297-09, CBCA #### [facility] ([id number]) [address] [place] [address] 86243 Lymphocytes/100 WBC (Bld) 22.2 % Normal [facility] Comment on above: Performed By: #### C CHANTELL, [facility]-6, -2, 3297-09, CBCA #### [facility] ([id number]) [address] [place] [address] 82185 MCH (RBC) [Entitic mass] 23.1 pg Low 27-34 [facility] Comment on above: Performed By: #### C CHANTELL, 4024-6, 5643-2, 3297-09, CBCA #### [facility] ([id number]) [address] [place] [address] 29582 MCHC (RBC) [Mass/Vol] 31.4 g/dL Low 32-36 [facility] Comment on above: Performed By: #### C CHANTELL, 4024-6, 5643-2, 3297-09, CBCA #### [facility] ([id number]) [address] [place] [address] 98488 MCV (RBC) [Entitic vol] 74 fL Low 80-100 [facility] Comment on above: Performed By: #### C CHANTELL, 4024-6, 5643-2, 3297-09, CBCA #### [facility] ([id number]) [address] [place] [address] 58705 Monocytes (Bld) [#/Vol] 1.1 10*3/uL High 0-0.9 [facility] Comment on above: Performed By: #### Rene ABDUL, [facility]-6, 5642-04, 3297-09, CBCA #### [facility] ([id number]) [address] [place] [address] 43085 Monocytes/100 WBC (Bld) 8.0 % Normal [facility] Comment on above: Performed By: #### C CHANTELL, 4024-6, 5642-, 3297-09, CBCA #### [facility] ([id number]) [address] [place] [address] 86545 Neutrophils/100 WBC (Bld) 61.8 % Normal [facility] Comment on above: Performed By: #### C CHANTELL, 4024-6, 56-2, 32910-12, CBCA #### [facility] ([id number]) [address] [place] [address] 94347 Platelet mean volume (Bld) [Entitic vol] 7.9 fL Normal 7-12 [facility] Comment on above: Performed By: #### C CHANTELL, 4024-6, 5643-2, 3297-09, CBCA #### [facility] ([id number]) [address] [place] [address] 09183 Platelets (Bld) [#/Vol] 530 10*3/uL High 150-450 [facility] Comment on above: Performed By: #### C CHANTELL, 4024-6, 5643-2, 3298-7, CBCA #### [facility] ([id number]) [address] [place] [address] 61245 RBC COUNT 4.82 X10E12/L Normal 3.80-5.20 [facility] Comment on above: Performed By: #### C CHANTELL, 4024-6, 5643-2, 329-7, CBCA #### [facility] ([id number]) [address] [place] [address] 98436 WBC (Bld) [#/Vol] 13.8 10*3/uL High 4.0-11.0 [facility] Comment on above: Performed By: #### C CHANTELL, 4024-6, 5643-2, 3298-7, CBCA #### [facility] ([id number]) [address] [place] [address] 41032 COMPREHENSIVE METABOLIC PANE Jace 06-22-2023 Albumin [Mass/Vol] 3.6 g/dL Normal 3.2-5.3 [facility] Comment on above: Performed By: #### C CHANTELL, 4024-6, 5643-2, 3298-7, CBCA #### [facility] ([id number]) [address] [place] [address] 73912 ALP [Catalytic activity/Vol] 51 U/L Normal 39-130 [facility] Comment on above: Performed By: #### C CHANTELL, 4024-6, 5643-2, 3298-7, CBCA #### [facility] ([id number]) [address] [place] [address] 92229 ALT [Catalytic activity/Vol] 18 U/L Normal 0-31 [facility] Comment on above: Performed By: #### C CHANTELL, 4024-6, 5643-2, 3297-7, CBCA #### [facility] ([id number]) [address] [place] [address] 32129 Anion gap [Moles/Vol] 6 mmol/L Normal 5-15 [facility] Comment on above: Performed By: #### C CHANTELL, 4024-6, 5643-2, 7, CBCA #### [facility] ([id number]) [address] [place] [address] 91964 AST [Catalytic activity/Vol] 14 U/L Normal 0-41 [facility] Comment on above: Performed By: #### C CHANTELL, 4024-6, 5643-2, 3297-09, CBCA #### [facility] ([id number]) [address] [place] [address] 13734 Bilirubin [Mass/Vol] 0.6 mg/dL Normal 0.3-1.2 [facility] Comment on above: Performed By: #### C CHANTELL, 4024-6, 5643-2, 3297-09, CBCA #### [facility] ([id number]) [address] [place] [address] 98985 Calcium [Mass/Vol] 9.0 mg/dL Normal 8.5-10.5 [facility] Comment on above: Performed By: #### C CHANTELL, 4024-6, 5643-2, 329-, CBCA #### [facility] ([id number]) [address] [place] [address] 83830 Chloride [Moles/Vol] 104 mmol/L Normal 98-109 [facility] Comment on above: Performed By: #### C CHANTELL, 4024-6, 5643-2, 329-7, CBCA #### [facility] ([id number]) [facility] [place] [address] CO2 [Moles/Vol] 26 mmol/L Normal 22-32 [facility] Comment on above: Performed By: #### C CHANTELL, 4024-6, 5643-2, 3297-09, CBCA #### [facility] ([id number]) [address] [place] [address] 76947 Creatinine [Mass/Vol] 0.84 mg/dL Normal 0.40-1.00 [facility] Comment on above: Result Comment: METH OD TRACEABLE TO IDMS STANDARD Performed By: #### C CHANTELL, 4-6, 5642-2, 3297-09, CBCA #### [facility] ([id number]) [address] [place] [address] 55264 GFR/1.73 sq M.predicted among non-blacks MDRD (S/P/Bld) [Vol rate/Area] 88 mL/min/{1.73_m2} Normal >59 [facility] Comment on above: Result Comment: Reported eGFR is based on the CKD-EPI 2020 equation that does not use a race coefficient. Performed By: #### C CHANTELL, 4-6, 5642-2, 3297-09, CBCA #### [facility] ([id number]) [address] [place] [address] 67456 Glucose [Mass/Vol] 96 mg/dL Normal 65-99 [facility] Comment on above: Performed By: #### C CHANTELL, 4024-6, 5642-2, 32910-12, CBCA #### [facility] ([id number]) [address] [place] [address] 37161 Potassium [Moles/Vol] 3.9 mmol/L Normal 3.5-5.0 [facility] Comment on above: Performed By: #### C CHANTELL, 4024-6, 5643-2, 32910-12, CBCA #### [facility] ([id number]) [address] [place] [address] 69766 Protein [Mass/Vol] 8.0 g/dL Normal 6.0-8.0 [facility] Comment on above: Performed By: #### C CHANTELL, 4024-6, 5643-2, 3298-7, CBCA #### [facility] ([id number]) [address] [place] [address] 17376 Sodium [Moles/Vol] 136 mmol/L Normal 134-146 [facility] Comment on above: Performed By: #### C CHANTELL, 4024-6, 5643-2, 3298-7, CBCA #### [facility] ([id number]) [address] [place] [address] 01037 Urea nitrogen [Mass/Vol] 21 mg/dL Normal 5-23 [facility] Comment on above: Performed By: #### C CHANTELL, 4024-6, 5643-2, 3298-7, CBCA #### [facility] ([id number]) [address] [place] [address] 44060 DRUG SCREEN, URINEon 024 AMPHETAMINE/METHAMP Negative Normal NEG [facility] Comment on above: Result Comment: AMPH /METH screening cut off = 1000 ng/mL Performed By: #### D CRUZ #### [facility] ([id number]) [address] [place] [address] 62686 BARBITURATES Negative Normal NEG [facility] Comment on above: Result Comment: Ella iturates screening cut off value = 200 ng/mL Performed By: #### D CRUZ #### [facility] ([id number]) [address] [place] [address] 83873 BENZODIAZEPINES Negative Normal NEG [facility] Comment on above: Result Comment: Feng odiazepines screening cut off value = 200 ng/mL Performed By: #### D CRUZ #### [facility] ([id number]) [address] [place] [address] 98639 CANNABINOIDS Positive Abnormal NEG [facility] Comment on above: Result Comment: Conf irmation available upon request. Cannabinoids/THC screening cut off value = 50 ng/mL Performed By: #### D CRUZ #### [facility] ([id number]) [address] [place] [address] 86613 COCAINE METABOLITE Negative Normal NEG [facility] Comment on above: Result Comment: Coca ine screening cut off value = 300 ng/mL Performed By: #### D CRUZ #### [facility] ([id number]) [address] [place] [address] 81996 ECSTASY Negative Normal NEG [facility] Comment on above: Result Comment: Ecst asy screening cut off value = 500 ng/mL This report is intended for use in clinical monitoring or management of patients. Performed By: #### D CRUZ #### [facility] ([id number]) [address] [place] [address] 97564 METHADONE Negative Normal NEG [facility] [facility] Comment on above: Result Comment: Meth adone screening cut off value = 300 ng/mL. Performed By: #### D CRUZ #### [facility] ([id number]) [address] [place] [address] OPIATES Negative Normal NEG [facility] Comment on above: Result Comment: Opia alesha screening cut off value = 300 ng/mL NOTE: This test is used for the detection of codeine, hydrocodone (>1000 ng/mL), morphine and hydromorphone (>900 ng/mL) in urine. Performed By: #### D CRUZ #### [facility] ([id number]) [address] [place] [address] OXYCODONE Positive Abnormal NEG [facility] Comment on above: Result Comment: Conf irmation available upon request. Oxycodone screening cut off value = 300 ng/mL NOTE: This test is used for the detection of oxycodone and oxymorphone in urine. Performed By: #### D CRUZ #### [facility] ([id number]) [address] [place] [address] PHENCYCLIDINE Negative Normal NEG [facility] Comment on above: Result Comment: Phen cyclidine screening cut off value = 25 ng/mL Performed By: #### D CRUZ #### [facility] ([id number]) [address] [place] [address] 38368 ETHANOLon 06-22-2023 Ethanol [Mass/Vol] mg/dL Normal 0.00-0.08 [facility] Comment on above: Result Comment: This report is intended for use in clinical monitoring or management of patients. Performed By: #### C CHANTELL, 4024-6, 5643-2, 3298-7, CBCA #### [facility] ([id number]) [address] [place] [address]13 HCG ( test) Ql (U)o n 06-22-2023 Beta HCG ( test) Ql (U) Negative Normal NEG [facility] Comment on above: Performed By: #### 2 106-3 #### [facility] ([id number]) [address] [place] [address]13 Salicylates [Mass/Vol]on SALICYLATE <4.0 Normal 2.0-25.0 [facility] Comment on above: Result Comment: Refe rence ranges are for therapeutic limits. Performed By: #### C CHANTELL, 4024-6, 5643-2, 3298-7, CBCA #### [facility] ([id number]) [address] [place] [address] 79911 URN MACROSCOPIC NURon 2023 BILIRUBIN [place] Negative Normal NEG [facility] Comment on above: Performed By: #### N UM #### [facility] ([id number]) [address] [place] [address] [place] [address] BLOOD/HGB [place] Trace Abnormal NEG [facility] Comment on above: Performed By: #### N UM #### [facility] ([id number]) [address] [place] [address] GLUCOSE [place] Negative Normal NEG [facility] Comment on above: Performed By: #### N UM #### [facility] ([id number]) [address] [place] [address] [place] [address] KETONES [place] Negative Normal NEG [facility] Comment on above: Performed By: #### N UM #### [facility] ([id number]) [address] [place] [address] 16315 LEUKOCYTE ESTERASE [place] MODERATE Abnormal NEG [facility] Comment on above: Performed By: #### N UM #### [facility] ([id number]) [address] [place] [address] [place] [address] NITRITE [place] Negative Normal NEG [facility] Comment on above: Performed By: #### N UM #### [facility] ([id number]) [address] [place] [address] PH [place] 5.0 Normal 5.0-8.5 [facility] Comment on above: Performed By: #### N UM #### [facility] ([id number]) [address] [place] [address] [place] [address] PROTEIN [place] Negative Normal NEG [facility] Comment on above: Performed By: #### N UM #### [facility] ([id number]) [address] [place] [address] SPECIFIC GRAVITY [place] 1.015 Normal 1.003-1.035 [facility] Comment on above: Performed By: #### N UM #### [facility] ([id number]) [address] [place] [address] [place] [address] UROBILINOGEN [place] 0.2 eu/dL Normal <1.1 [facility] Comment on above: Performed By: #### N UM #### [facility] ([id number]) [address] [place] [address], [place] [address] PAP ACOG PANEL 2: 30 to 64on 06-03-2022 . . Normal [facility] Comment on above: Result Comment: Perf ormed at: WB Performed By: #### 4 [id number] #### [facility] [address] [address] [address] Dustin Hoover Age Gdln ACOG Testing -64 Normal [facility] Comment on above: Performed By: #### 4 [id number] #### [facility] [address] [address] [address] Dustin Hoover DIAGNOSIS: Comment Abnormal [facility] Comment on above: Result Comment: EPIT HELIAL CELL ABNORMALITY. ATYPICAL SQUAMOUS CELLS OF UNDETERMINED SIGNIFICANCE (ASC-US). TRICHOMONAS VAGINALIS IS PRESENT. Performed at: WB Performed By: #### 4 [id number] #### [facility] [address] [address] [address] Dustin Hoover Electronically signed by: Comment Normal [facility] Comment on above: Result Comment: Andreia López MD, Pathologist Performed at: WB Performed By: #### 4 [id number] #### [facility] [address] [address] [address] Dustin Hoover HPV Aptima Negative Normal Negative [facility] Comment on above: Result Comment: This nucleic acid amplification test detects fourteen high-risk HPV types (16,18,31,33,35,39,45,51,52,56,58,59,66,68) without differentiation. Performed at: =G Performed By: #### 4 [id number] #### [facility] [address] [address] [address] Dustin Hoover HPV Genotype Reflex Comment Normal [facility] Comment on above: Result Comment: Crit eria not met, HPV Genotype not performed. Performed at: WB Performed By: #### 4 [id number] #### [facility] [address] [place] [address] Dr. Dustin Hoover Methodology: Comment Normal [facility] Comment on above: Result Comment: This liquid based ThinPrep(R) pap test was screened with the use of an image guided system. Performed at: WB Performed By: #### 4 [id number] #### [facility] [address] [address] [address] Dustin Hoover Note: Comment Normal [facility] Comment on above: Result Comment: The Pap smear is a screening test designed to aid in the detection of premalignant and malignant conditions of the uterine cervix. It is not a diagnostic procedure and should not be used as the sole means of detecting cervical cancer. Both false-positive and false-negative reports do occur. . Performed at: WB Performed By: #### 4 [id number] #### [facility] [address] [place] [address] Dr. Dustin Hoover Pathologist Provided ICD10 Comment Normal [facility] Comment on above: Result Comment: R87. 610, R87.5 Performed at: WB Performed By: #### 4 [id number] #### [facility] [address] [place] [address] Dr. Dustin Hoover Performed by: Comment Normal [facility] Comment on above: Result Comment: Bernadette Tucker, Supervisor [employer] Performed at: WB Performed By: #### 4 [id number] #### [facility] [address] [place] [address] Dr. Dustin Hoover Recommendation: Comment Abnormal [facility] Comment on above: Result Comment: Sugg est follow up as clinically appropriate. Performed at: WB Performed By: #### 4 [id number] #### [facility] [address] [place] [address] Dr. Dustin Hoover Specimen adequacy: Comment Normal [facility] Comment on above: Result Comment: Sati sfactory for evaluation. Endocervical and/or squamous metaplastic cells (endocervical component) are present. Performed at: WB Performed By: #### 4 [id number] #### [facility] [address] [place] [address] Dr. Dustin Hoover LIPID PROFILEon 03-23-2023 CHOL-HDL RATIO NORM SEE BELOW Normal [facility] Comment on above: Result Comment: 3.3 - 4.4 LOW RISK 4.4 - 7.1 AVERAGE RISK 7.1 - 11.0 MODERATE RISK >11.0 HIGH RISK Performed By: #### P TT, PT #### [facility] [address] [address] [address] Dustin Hoover Cholesterol [Mass/Vol] 180 mg/dL Normal <=200 [facility] Comment on above: Performed By: #### P TT, PT #### [facility] [address] [address] [address] Dustin Hoover Cholesterol in HDL [Mass/Vol] 32 mg/dL Critically low 40-60 [facility] Comment on above: Performed By: #### P TT, PT #### [facility] [address] [address] [address] Dustin Hoover Cholesterol in LDL [Mass/Vol] 108.6 mg/dL Normal [facility] Comment on above: Performed By: #### P TT, PT #### [facility] [address] [address] [address] Dustin Hoover Cholesterol.total/Cholest mitch in HDL [Mass ratio] 5.6 {ratio} Normal [facility] Comment on above: Performed By: #### P TT, PT #### [facility] [address] [address] [address] Dustin Hoover HDL NORMAL > or = 60 mg/dl - LO W CARDIOVASCULAR RISK <40 mg/dl - HIGH CARDIOVASCULAR RISK Normal [facility] Comment on above: Performed By: #### P TT, PT #### [facility] [address] [address] [address] Dustin Hoover LDL CALC NORMAL SEE BELOW Normal [facility] Comment on above: Result Comment: <100 mg/dl OPTIMAL 100 - 129 mg/dl NEAR OR ABOVE OPTIMAL 130 - 159 mg/dl BORDERLINE HIGH 160 - 189 mg/dl HIGH >190 mg/dl VERY HIGH Performed By: #### P TT, PT #### [facility] [address] [address] [address] Dustin Hoover Triglyceride [Mass/Vol] 197 mg/dL Critically high <=150 [facility] Comment on above: Performed By: #### P TT, PT #### [facility] [address] [address] [address] Dustin Hoover VLDL CALC 39.4 mg/dL Normal [facility] Comment on above: Performed By: #### P TT, PT #### [facility] [address] [address] [address] Dustin Hoover MG MAMM SCREEN 3D JORGE LUIS CADon 05-28-2022 MG MAMM SCREEN 3D JORGE LUIS CAD Patient: JENNIFER MANZANO Exam Date: 05/28/2022 : 1980 Gender:F Ordering : DEMETRIA PHILLIPS Admission #: [id number] Family : Order #: [id number] CLICK HERE TO VIEW EXAM RADIOLOGY REPORT [...] breast cancer at age 64. LOCATION: [facility] BREAST COMPOSITION: Almost entirely fatty. FINDINGS: DIAGNOSTIC [...] M.D. on 05/28/2022 at 13:16 Normal [facility] PROF 14(COMP METB)on 023 Albumin [Mass/Vol] 3.3 g/dL Critically low 3.4-5.0 [facility] Comment on above: Performed By: #### P TT, PT #### [facility] [address] [address] [address] Dustin Hoover Albumin/Globulin [Mass ratio] 0.9 {ratio} Normal [facility] Comment on above: Performed By: #### P TT, PT #### [facility] [address] [place] [address] Dr. Dustin Hoover ALP [Catalytic activity/Vol] 54 U/L Normal 46-116 [facility] Comment on above: Performed By: #### P TT, PT #### [facility] [address] [place] [address] Dr. Dustin Hoover ALT [Catalytic activity/Vol] 18 U/L Normal 14-59 [facility] Comment on above: Performed By: #### P TT, PT #### [facility] [address] [place] [address] Dr. Dustin Hoover Anion gap [Moles/Vol] 10.8 mmol/L Normal [facility] Comment on above: Performed By: #### P TT, PT #### [facility] [address] [place] [address] Dr. Dustin Hoover AST [Catalytic activity/Vol] 11 U/L Critically low 15-37 [facility] Comment on above: Performed By: #### P TT, PT #### [facility] [address] [place] [address] Dr. Dustin Hoover Bilirubin [Mass/Vol] 0.3 mg/dL Normal 0.2-1.0 [facility] Comment on above: Performed By: #### P TT, PT #### [facility] [address] [place] [address] Dr. Dustin Hoover Calcium [Mass/Vol] 8.5 mg/dL Normal 8.5-10.1 [facility] Comment on above: Performed By: #### P TT, PT #### [facility] [address] [place] [address] Dr. Dustin Hoover Chloride [Moles/Vol] 105 mmol/L Normal 98-107 [facility] Comment on above: Performed By: #### P TT, PT #### [facility] [address] [place] [address] Dr. Dustin Hoover CO2 [Moles/Vol] 26.2 mmol/L Normal 21.0-32.0 [facility] Comment on above: Performed By: #### P TT, PT #### [facility] [address] [place] [address] Dr. Dustin Hoover Creatinine [Mass/Vol] 0.61 mg/dL Normal 0.55-1.02 [facility] Comment on above: Performed By: #### P TT, PT #### [facility] [address] [address] [address] Dustin Hoover EGFR-AF SAMOAN >60 Normal >=60 [facility] Comment on above: Performed By: #### P TT, PT #### [facility] [address] [place] [address] Dr. Dustin Hoover EGFR-NON AF SAMOAN >60 Normal >=60 [facility] Comment on above: Performed By: #### P TT, PT #### [facility] [address] [place] [address] Dr. Dustin Hoover Globulin (S) [Mass/Vol] 3.7 g/dL Normal [facility] Comment on above: Performed By: #### P TT, PT #### [facility] [address] [place] [address] Dr. Dustin Hoover Glucose [Mass/Vol] 99 mg/dL Normal 74-106 [facility] Comment on above: Performed By: #### P TT, PT #### [facility] [address] [place] [address] Dr. Dustin Hoover Potassium [Moles/Vol] 4.0 mmol/L Normal 3.5-5.1 [facility] Comment on above: Performed By: #### P TT, PT #### [facility] [address] [place] [address] Dr. Dustin Hoover Protein [Mass/Vol] 7.0 g/dL Normal 6.4-8.2 [facility] Comment on above: Performed By: #### P TT, PT #### [facility] [address] [place] [address] Dr. Dustin Hoover Sodium [Moles/Vol] 138 mmol/L Normal 136-145 [facility] Comment on above: Performed By: #### P TT, PT #### [facility] [address] [place] [address] Dr. Dustin Hoover Urea nitrogen [Mass/Vol] 8.0 mg/dL Normal 7.0-18.0 [facility] Comment on above: Performed By: #### P TT, PT #### [facility] [address] [place] [address] Dr. Dustin Hoover Urea nitrogen/Creatinine [Mass ratio] 13.1 mg/mg Normal [facility] Comment on above: Performed By: #### P TT, PT #### [facility] [address] [place] [address] Dr. Dustin Hoover PROTIMEon 05-28-2022 INR Coag (PPP) [Relative time] 0.97 {INR} Normal [facility] Comment on above: Performed By: #### P TT, PT #### [facility] [address] [place] [address] Dr. Dustin Hoover INR GUIDELINES SEE BELOW Normal [facility] Comment on above: Result Comment: MARIA DOLORES RED INR: 2.0 - 3.0 CONDITIONS NOT LISTED BELOW 2.5 - 3.5 FOR PROSTHETIC HEART VALVE REPLACEMENT 2.5 - 3.5 RECURRENT THROMBOSIS Performed By: #### P TT, PT #### [facility] [address] [place] [address] Dr. Dustin Hoover PT Coag (PPP) [Time] 10.3 s Normal 9.0-11.6 [facility] Comment on above: Performed By: #### P TT, PT #### [facility] [address] [place] [address] Dr. Dustin Hoover PTTon 05-28-2022 aPTT Coag (Bld) [Time] 26.9 s Normal 22.3-36.2 Th [facility] Comment on above: Performed By: #### P TT, PT #### [facility] [address] [place] [address] Dr. Dustin Hoover CHLAMYDIA/GONOCOCCUS QUENTIN (SW AB/URINE/PAPon 05-27-2022 Chlamydia trachomatis, QUENTIN Negative Normal Negative [facility] Comment on above: Performed By: #### P TT, PT #### [facility] [address] [place] [address] Dr. Dustin Hoover Neisseria gonorrhoeae, QUENTIN Negative Normal Negative [facility] Comment on above: Performed By: #### P TT, PT #### [facility] [address] [place] [address] Dr. Dustin Hoover DHEA SERUMon 05-27-2022 Dehydroepiandrosterone (DHEA) 382 ng/dL Normal 31-701 [facility] Comment on above: Performed By: #### P TT, PT #### [facility] [address] [place] [address] Dr. Dustin Hoover VAGINITIS/VAGINOSIS DNA PROB Michael 05-27-2022 Catherine species Negative Normal Negative [facility] Comment on above: Performed By: #### V AGINT #### [facility] [address] [place] [address] Dr. Dustin Hoover Gardnerella vaginalis Positive Abnormal Negative [facility] Comment on above: Performed By: #### V AGINT #### [facility] [address] [place] [address] Dr. Dustin Hoover Trichomonas vaginalis Positive Abnormal Negative [facility] Comment on above: Performed By: #### V AGINT #### [facility] [address] [place] [address] Dr. Dustin Hoover DHEA-SULFATEon 05-26-2022 DHEA-Sulfate 48.3 ug/dL Critically low 57.3-279.2 [facility] Comment on above: Performed By: #### D HEASUL #### [facility] [address] [place] [address] Dr. Dustin Hoover FSHon 05-26-2022 FSH 14.7 mIU/mL Normal [facility] Comment on above: Result Comment: Adul t Female: Follicular phase 3.5 - 12.5 Ovulation phase 4.7 - 21.5 Luteal phase 1.7 - 7.7 Postmenopausal 25.8 - 134.8 Performed By: #### P TT, PT #### [facility] [address] [place] [address] Dr. Dustin Hoover HEPATITIS PANEL, ACUTEon HBsAg Screen Negative Normal Negative [facility] Comment on above: Performed By: #### H EPACUT #### [facility] [address] [place] [address] Dr. Dustin Hoover HCV AB Non-Reactive Normal Non Reactive [facility] Comment on above: Performed By: #### H EPACUT #### [facility] [address] [place] [address] Dr. Dustin Hoover Hep A Ab, IgM Negative Normal Negative [facility] Comment on above: Performed By: #### H EPACUT #### [facility] [address] [place] [address] Dr. Dustin Hoover Hep B Core Ab, IgM Negative Normal Negative [facility] Comment on above: Performed By: #### H EPACUT #### [facility] [address] [place] [address] Dr. Dustin Hoover Interpretation: Comment Normal [facility] Comment on above: Result Comment: Not infected with HCV unless early or acute infection is suspected (which may be delayed in an immunocompromised individual), or other evidence exists to indicate HCV infection. Performed By: #### H EPACUT #### [facility] [address] [place] [address] Dr. Dustin Hoover HIV 1 AND 2 WITH REFLEXon HIV Screen 4th Generation wRfx Non-Reactive Normal Non Reactive [facility] Comment on above: Result Comment: HIV Negative HIV-1/HIV-2 antibodies and HIV-1 p24 antigen were NOT detected. There is no laboratory evidence of HIV infection. Performed By: #### H IV12 #### [facility] [address] [place] [address] Dr. Dustin Hoover LUTEINIZING HORMONE (LH)on 0 05-26-2022 LH 41.0 mIU/mL Normal [facility] Comment on above: Result Comment: Adul t Female: Follicular phase 2.4 - 12.6 Ovulation phase 14.0 - 95.6 Luteal phase 1.0 - 11.4 Postmenopausal 7.7 - 58.5 Performed By: #### L BCLH #### [facility] [address] [place] [address] Dr. Dustin Hoover RPR QUANTon 05-26-2022 Rapid Plasma Reagin, Quant Non-Reactive Normal NonRea<1:1 [facility] Comment on above: Result Comment: Elder dickinson Note: This test does not meet current guidelines for screening and diagnosis of syphilis. This test is intended for following treatment response in patients being treated for syphilis infection. To screen for syphilis infection, a reflex cascade that includes both RPR and a treponema-specific assay should be utilized, such as Treponema pallidum (Syphilis) Screening Reynolds (570480) or Rapid Plasma Reagin (RPR) Test With Reflex to Quantitative RPR and Confirmatory Treponema pallidum Antibodies (463271). Performed By: #### P TT, PT #### [facility] [address] [place] [address] Dr. Dustin Hoover CBC AUTO DIFFon 05-25-2022 BASO # 0.1 103/ul Normal 0.0-0.1 [facility] Comment on above: Performed By: #### C BC #### [facility] [address] [place] [address] Dr. Dustin Hoover Basophils/100 WBC (Bld) 0.7 % Normal 0.2-2.0 [facility] Comment on above: Performed By: #### C BC #### [facility] [address] [place] [address] Dr. Dustin Hoover EO # 0.5 103/ul Normal 0.0-0.7 [facility] Comment on above: Performed By: #### C BC #### [facility] [address] [place] [address] Dr. Dustin Hoover Eosinophils/100 WBC (Bld) 2.6 % Normal 0.9-7.0 [facility] Comment on above: Performed By: #### C BC #### [facility] [address] [place] [address] Dr. Dustin Hoover Erythrocyte distribution width (RBC) [Ratio] 17.2 % Critically high 11.0-15.0 [facility] Comment on above: Performed By: #### C BC #### [facility] [address] [place] [address] Dr. Dustin Hoover Hematocrit (Bld) [Volume fraction] 39.7 % Normal 36.0-48.0 [facility] Comment on above: Performed By: #### C BC #### [facility] [address] [place] [address] Dr. Dustin Hoover Hemoglobin (Bld) [Mass/Vol] 12.4 g/dL Normal 12.0-16.0 [facility] Comment on above: Performed By: #### C BC #### [facility] [address] [place] [address] Dr. Dustin Hoover IG # 0.13 10e3/ul Critically high 0.00-0.03 [facility] Comment on above: Performed By: #### C BC #### [facility] [address] [place] [address] Dr. Dustin Hoover IG % 0.7 % Critically high 0.0-0.5 [facility] Comment on above: Performed By: #### C BC #### [facility] [address] [place] [address] Dr. Dustin Hoover LYMPH # 4.1 103/ul Critically high 1.2-3.8 [facility] Comment on above: Performed By: #### C BC #### [facility] [address] [place] [address] Dr. Dustin Hoover Lymphocytes/100 WBC (Bld) 22.9 % Normal 20.5-60.0 [facility] Comment on above: Performed By: #### C BC #### [facility] [address] [place] [address] Dr. Dustin Hoover MANUAL DIFF REQ NO Normal [facility] Comment on above: Performed By: #### C BC #### [facility] [address] [place] [address] Dr. Dustin Hoover MCH (RBC) [Entitic mass] 23.8 pg Critically low 26.7-34 .0 [facility] Comment on above: Performed By: #### C BC #### [facility] [address] [address] [address] Dustin Hoover MCHC (RBC) [Mass/Vol] 31.2 g/dL Normal 29.9-35.2 [facility] Comment on above: Performed By: #### C BC #### [facility] [address] [address] [address] Dustin Hoover MCV (RBC) [Entitic vol] 76.2 fL Critically low 81.0-99. 0 [facility] Comment on above: Performed By: #### C BC #### [facility] [address] [address] [address] Dustin Hoover MONO # 1.3 103/ul Critically high 0.3-0.8 [facility] Comment on above: Performed By: #### C BC #### [facility] [address] [place] [address] Dr. Dustin Hoover Monocytes/100 WBC (Bld) 7.0 % Normal 1.7-12.0 [facility] Comment on above: Performed By: #### C BC #### [facility] [address] [place] [address] Dr. Dustin Hoover NEUT # 11.9 103/ul Critically high 1.4-6.5 [facility] Comment on above: Performed By: #### C BC #### [facility] [address] [place] [address] Dr. Dustin Hoover Neutrophils/100 WBC (Bld) 66.1 % Normal 43.0-75.0 [facility] Comment on above: Performed By: #### C BC #### [facility] [address] [place] [address] Dr. Dustin Hoover Platelet mean volume (Bld) [Entitic vol] 10.1 fL Normal 9.5-13.5 [facility] Comment on above: Performed By: #### C BC #### [facility] [address] [place] [address] Dr. Dustin Hoover PLT 499 103/ul Critically high 150-450 [facility] Comment on above: Performed By: #### C BC #### [facility] [address] [place] [address] Dr. Dustin Hoover RBC 5.21 106/ul Normal 4.20-5.40 [facility] Comment on above: Performed By: #### C BC #### [facility] [address] [place] [address] Dr. Dustin Hoover WBC 18.0 103/ul Critically high 4.0-11.0 [facility] Comment on above: Performed By: #### C BC #### [facility] [address] [place] [address] Dr. Dustin Hoover FREE T4on 05-25-2022 Free T4 [Mass/Vol] 0.82 ng/dL Normal 0.76-1.46 [facility] Comment on above: Performed By: #### P TT, PT #### [facility] [address] [place] [address] Dr. Dustin Hoover GLYCOHEMOGLOBIN A1Con 2022 ADA RECOMMENDATION SEE BELOW Normal [facility] Comment on above: Result Comment: ADA RECOMMENDED LIMIT 4.0 - 6.0 ADA THERAPEUTIC TARGET < 7.0 ACTION SUGGESTED > 7.0 Performed By: #### A 1C #### [facility] [address] [place] [address] Dr. Dustin Hoover Glucose [Mass/Vol] 108 mg/dL Normal [facility] Comment on above: Performed By: #### A 1C #### [facility] [address] [place] [address] Dr. Dustin Hoover HbA1c (Bld) [Mass fraction] 5.4 % Normal 4.5-6.2 [facility] Comment on above: Performed By: #### A 1C #### [facility] [address] [place] [address] Dr. Dustin Hoover PREG QUANT HCGon 05-25-2022 HCG QUANT 1 mIU/mL Normal [facility] Comment on above: Performed By: #### P TT, PT #### [facility] [address] [place] [address] Dr. Dustin Hoover HCG RANGE SEE BELOW Normal [facility] Comment on above: Result Comment: 5-50 0.2-1 WEEK 50-500 1-2 WEEKS 100-5,000 2-3 WEEKS 500-10,000 3-4 WEEKS 1,000-50,000 4-5 WEEKS 10,000-100,000 5-6 WEEKS 15,000-200,000 6-8 WEEKS 10,000-100,000 2-3 MONTHS Performed By: #### P TT, PT #### [facility] [address] [address] [address] Dustin Hoover TSHon 05-25-2022 TSH 2.768 uIU/mL Normal 0.358-3.740 [facility] Comment on above: Performed By: #### P TT, PT #### [facility] [address] [place] [address] Dr. Dustin Hoover Vital Signs Date Time Vital Sign Value Performing Clinician Facility 06-25-2023 15:14-0400 Body temperature 98.1 [degF] [facility] 06-25-2023 15:14-0400 Diastolic blood pressure 88 mm[Hg] [facility] 06-25-2023 15:14-0400 Heart rate 105 /min [facility] 06-25-2023 15:14-0400 Respiratory rate 18 /min [facility] 06-25-2023 15:14-0400 SaO2% (BldA) [Mass fraction] 95 % [facility] 06-25-2023 15:14-0400 Systolic blood pressure 119 mm[Hg] [facility] 06-23-2023 14:22-0400 Body height 157.48 cm [facility] 06-22-2023 22:00-0400 Body weight 147.41 kg [facility] 06-03-2023 21:42-0400 Body mass index (BMI) [Ratio] 59.55 kg/m2 Parametric DO Work Phone: [facility] [employer] 06-03-2023 21:42-0400 Body weight 147.69 kg Parametric DO Work Phone: [facility] 05-28-2023 18:56-0400 Body mass index (BMI) [Ratio] 61.16 kg/m2 Butch Oliva DO Work Phone: [employer] 05-28-2023 18:56-0400 Body weight 151.68 kg Butch Oliva DO [facility] 05-28-2023 18:56-0400 Diastolic blood pressure 68 mm[Hg] Butch Oliva DO Work Phone: [facility] 05-28-2023 18:56-0400 Heart rate 71 /min Butch Oliva DO Work Phone: [facility] 05-28-2023 18:56-0400 Systolic blood pressure 104 mm[Hg] Butch Oliva [employer] Work Phone: [facility] 05-18-2023 19:08-0400 Body mass index (BMI) [Ratio] 60.36 kg/m2 Megan Cash APRN-THAIS Work Phone: [facility] 05-18-2023 19:08-0400 Body temperature 98.01 [degF] Megan Cash APRN-DISPOSAL WORKER Work Phone: [facility] 05-18-2023 19:08-0400 Body weight 149.69 kg Megan Cash APRN-DISPOSAL WORKER Work Phone: [employer] 05-18-2023 19:08-0400 Diastolic blood pressure 68 mm[Hg] Megan Cash APRN-DISPOSAL WORKER Work Phone: [facility] 05-18-2023 19:08-0400 Heart rate 71 /min Megan Cash APRN-DISPOSAL WORKER Work Phone: [facility] 05-18-2023 19:08-0400 Respiratory rate 18 /min Megan Cash APRN-DISPOSAL WORKER Work Phone: [facility] 05-18-2023 19:08-0400 SaO2% (BldA) [Mass fraction] 98 % Megan Cash PUBLICIST-DISPOSAL WORKER Work Phone: [facility] 05-18-2023 19:08-0400 Systolic blood pressure 104 mm[Hg] Megan JEWELL Work Phone: [facility] 05-14-2023 18:39-0500 Body mass index (BMI) [Ratio] 57.5 kg/m2 Butch Furlong DO Work Phone: [facility] 05-14-2023 18:39-0500 Body temperature 97.59 [degF] Butch Furlong DO Work Phone: [facility] 05-14-2023 18:39-0500 Body weight 142.61 kg Butch Furlong DO Work Phone: [facility] 05-14-2023 18:39-0500 Diastolic blood pressure 68 mm[Hg] Butch Furlong DO Work Phone: [facility] 05-14-2023 18:39-0500 Heart rate 90 /min Butch Furlong DO Work Phone: [facility] 05-14-2023 18:39-0500 Respiratory rate 18 /min Butch Furlong DO Work Phone: [facility] 05-14-2023 18:39-0500 SaO2% (BldA) [Mass fraction] 98 % Butch Furlong DO Work Phone: [facility] 05-14-2023 18:39-0500 Systolic blood pressure 110 mm[Hg] Butch Furlong DO Work Phone: [facility] 04-30-2023 17:38-0500 Body height 157.5 cm Butch Furlong DO Work Phone: [facility] 04-30-2023 17:38-0500 Body mass index (BMI) [Ratio] 56.53 kg/m2 Butch Furlong DO Work Phone: [facility] 04-30-2023 17:38-0500 Body temperature 97.81 [degF] Butch Tonglong DO Work Phone: [facility] 04-30-2023 17:38-0500 Body weight 140.2 kg Butch Furlong DO Work Phone: [facility] 04-30-2023 17:38-0500 Diastolic blood pressure 62 mm[Hg] Butch Furlong DO Work Phone: [facility] 04-30-2023 17:38-0500 Heart rate 106 /min Butch Tonglong DO Work Phone: [facility] 04-30-2023 17:38-0500 Respiratory rate 20 /min Butch Tonglong DO Work Phone: [facility] 04-30-2023 17:38-0500 SaO2% (BldA) [Mass fraction] 91 % Butch Oneilng DO Work Phone: [facility] 04-30-2023 17:38-0500 Systolic blood pressure 99 mm[Hg] Butch Tonglong DO Work Phone: [facility] [employer] Encounters Encounter Date Encounter Type Care Provider [...] Start: 07-08-2023 End: 07-08-2023 ambulatory CHEL RAMSEY [facility] Start: 2023 End: 2023 ambulatory TRAV VALDOVINOS Not Available Start: 06-23-2023 Non-patient / Non-visit [facility] Work Phone: Start: 06-22-2023 End: 06-25-2023 Evaluation and management of inpatient [address] Work Phone: Start: 06-22-2023 End: 06-22-2023 Emergency department patient visit BUTCH OLIVA [facility] Start: 06-22-2023 ambulatory NON STAFF Facility:[facility] Start: 06-03-2023 ambulatory Butch robins DO Work Phone: [facility] Comment on above: Pedal edema (Primary Dx); Intertrigo; Morbid obesity ([facility]) Start: 05-28-2023 ambulatory Butch robins DO Work Phone: [facility] Comment on above: Bilateral primary os teoarthritis of hip (Primary Dx); Muscle weakness (generalized); Other abnormalities of gait and mobility; Spinal stenosis of lumbar region, unspecified whether neurogenic claudication present Start: 05-18-2023 Continuing Care Megan ga APRN-DISPOSAL WORKER Work Phone: [facility] Comment on above: Spinal stenosis of l umbar region, unspecified whether neurogenic claudication present (Primary Dx); Bipolar affective disorder, current episode mixed, current episode severity unspecified (CMS-HCC); Primary osteoarthritis of both hips; Schizophrenic disorder ([facility]); Class 3 severe obesity due to excess calories with serious comorbidity and body mass index (BMI) of 60.0 to 69.9 in adult ([facility]); Full code status Start: 05-14-2023 Continuing [...] (BMI) of 50.0 to 59.9 in adult ([facility]-H[facility]) Start: 04-26-2023 Registered [facility] Start: 07-23-2022 ambulatory DEMETRIA SHAMMO Facility:[facility] Start: 06-30-2022 ambulatory DEMETRIA SHAMMO Facility:[facility] Start: 06-16-2022 End: 06-17-2022 ambulatory DEMETRIA SHAMMO Facility:[facility] Start: 06-09-2022 ambulatory DEMETRIA SHAMMO Facility:[facility] 1 Start: 06-02-[address] EMILY BECKER . Facili ty:[facility]1 Start: 05-29-2022 Encounter for genera l adult medical examination without abnormal findings DEMETRIA SHAMMO [facility] Start: 05-28-2022 End: 05-28-[address] EMILY [...] Td Vaccines (2 - Td or Tdap) [facility] Start: 05-28-2032 Urine microalbumin profile DTaP,Tdap,Td Vaccine (2 - Td or Tdap) [facility] Start: 03-09-2026 Screening for malign ant neoplasm of cervix Cervical Cancer Screening [facility] Start: 05-27-2024 Adult BMI Screening Adult BMI Screen ing [facility] Start: 05-23-2024 Tobacco Screening Tobacco Screening [facility] Start: 05-20-2024 Tobacco Screening Tobacco Screening [facility] Start: 05-17-2024 Adult BMI Screening Adult BMI Screen ing [facility] Start: 04-30-2024 Adult BMI Screening Adult BMI Screen ing [facility] Start: 04-30-2024 Tobacco Screening Tobacco Screening [facility] Start: 01-31-2024 Tobacco Screening Tobacco Screening [facility] Start: 11-07-2023 Influenza vaccination [facility] Start: 09-30-2023 End: 09-30-2023 Patient encounter procedure 09/30/2023 9:15 AM EDT Office Visit [facility] [address] [place] [address] Edward Arita, [address] [place] [address] Bilateral USGI Hip injections Orthopaedics Comment on above: Bilateral USGI Hip i njections Start: 06-25-2023 [facility] Start: 06-24-2023 Referral to painter and grader cork [facility] Start: 06-24-2023 Referral to clinical automotive customer experience advisor [facility] Start: 06-22-[address] [facility] Start: 06-22-2023 [facility] Start: 03-08-2023 Behavioral Health Screening Behavioral Health Screening [facility] Start: 11-06-2022 Covid-19 Vaccine ( season) Covid-19 Vaccine () [facility] Start: 11-06-2022 Influenza vaccination Influenza Vacc ine [facility] Start: 2019 Screening for malign ant neoplasm of breast Mammogram Screening [facility] Start: 06-28-2000 Screening for malign ant neoplasm of cervix Pap Smear [facility] Start: 06-28-1998 Hepatitis B Vaccine (1 of 3 - 19+ 3-dose series) Hepatitis B Vaccine (1 of 3 - 19+ 3-dose series) [facility] Start: 06-28-1997 Adult BMI Follow Up Plan Adult BMI Follow Up Plan [facility] Start: 06-28-1997 Anxiety Screening Anxiety Screening [facility] Start: 06-28-1997 Depression Screening Depression Scre ing [facility] Start: 06-28-1997 HIV screening HIV Screening [facility] Start: 1991 Depression Screening Depression Scre [facility] Start: 06-28-1985 Pneumococcal vaccination Pneumococcal Vaccine (1 of 2 - PCV) [facility] Start: 1979 Tobacco Counseling Tobacco Counselin g [facility] Patient Education Depression, Ad ult (DC) [facility] Behavioral Health DC Instructions [facility] Work Phone: Patient referral [facility] Work Phone: Immunizations Immunization Date Immunization Notes Care Provider Fa natalie 05-28-2022 tetanus toxoid, redu radha diphtheria toxoid, and acellular pertussis vaccine, adsorbed Butch Oliva DO Work Phone: [facility] Payers Date Payer Category Payer Private Health Insurance HUMANA HUMANA MEDICAID [facility] [id number] 2023-Present [address] [address] [place] [address] Medicaid [id number] 2023 Self-pay 2022 Medicaid [facility] [place] [id number] 2022-Present [phone] [address] [place] [address] [id number] 2006 Medicaid [id number] 1979 Unknown [id number] 2.16.840.1.206315.3.579.2.5 1979 Unknown [id number] 2.16.840.1.658071.3.579.2.5 1979 Unknown [id number] 2.16.840.1.986918.3.579.2.5 1979 Unknown [id number] 2.16.840.1.536722.3.579.2.5 1979 Unknown [id number] 2.16.840.1.590999.3.579.2.5 1979 Unknown [id number] 2.16.840.1.111435.3.579.2.5 1979 Unknown [id number] 2.16.840.1.607340.3.579.2.5 1979 Unknown [id number] 2.16.840.1.517670.3.579.2.5 93 1979 Unknown [id number] 2.16.840.1.924140.3.579.2.5 93 1979 Unknown [id number] 2.16.840.1.526414.3.579.2.5 93 1979 Unknown [id number] 2.16.840.1.482770.3.579.2.5 93 1979 Unknown [id number] 2.16.840.1.206164.3.579.2.1 286 1979 Unknown [id number] 2.16.840.1.898603.3.579.2.1 286 1979 Unknown [id number] 2.16.840.1.583219.3.579.2.1 259 1979 Unknown [id number] 2.16.840.1.599734.3.579.2.1 259 1979 Unknown [id number] 2.16.840.1.634383.3.579.2.1 259 1979 Unknown [id number] 2.16.840.1.149189.3.579.2.1 259 1979 Unknown [id number] 2.16.840.1.017839.3.579.2.1 259 1979 Unknown [id number] 2.16.840.1.353714.3.579.2.1 259 Unknown [id number] 2.16.840.1.848685.3.579.2.5 31 Unknown [id number] 2.16.840.1.385486.3.579.2.5 31 Social History Date Type Detail Facility Start: 05-17-2007 End: 04-30-2023 Tobacco smoking status NMIS Smokes tobacco daily [facility] Start: 03-08-1989 History of tobacco use Cigarette Smoker [facility] Start: 04-30-2023 End: 09-03-2023 Cigarettes smoked current (pack per day) - Reported 0.3 [facility] History of tobacco use Passive smoker [facility] Start: 04-30-2023 Tobacco use and exposure Smokeless tobacco non-user [facility] Start: 04-30-2023 End: 05-24-2023 Alcohol intake Ex-drinker (finding) [facility] Start: 04-30-2023 End: 09-03-2023 Tobacco use panel [facility] In the past 12 month s, has lack of transportation kept you from medical appointments or from getting medications? Yes [facility] Start: 04-30-2023 Tobacco Comment Started smoking at 9 years of age [facility] Start: 1980 Sex Assigned At Not on file [facility] Start: 06-24-2023 Tobacco smoking status NHIS Smoker (finding) [facility] Start: 1980 Sex Assigned At Female [facility] Start: 07-07-2010 Alcohol intake Current non-drinker of alcohol (finding) [facility] Tobacco smoking stat us NHIS Tobacco smoking consumption unknown [facility] Goals Date Patient Goal Desired Activity /State Functional Status Date Assessment Result Facility 06-25-2023 Functional status Patient at Baseline [facility] Work Phone: Mental Status Date Assessment Result Facility 06-25-2023 Cognitive function Cognitive Sta tus Patient at Baseline [facility] Work Phone: Clinical Notes 05-21-2022 to [...] hip joints Informed Consent Consent Obtained: Verbal [place] Protocol A moment to CARE was completed. [...] Arita DO 09/30/2023 documented in this encounter [facility] 09-03-2023 Instructions Tang Sloan PA-C - 09/03/2023 [...] MUCH MORE DANGEROUS. documented in this encounter [facility] 09-03-2023 Note HNO ID: [id number] Author: TANG SLONA PA-C Service: ? Author Type: Physician Jailer Chief Type: Progress Notes Filed: 09/07/2023 16:29 Note [...] She reports that she moved here from [place] and moved in with her sisters in [...] Significant tenderness o (more content not included)... [facility] 09-03-2023 History of Presen t [...] She reports that she moved here from [place] and moved in with her sisters in [...] trochanteric bursa Informed Consent Consent Obtained: Verbal [place] Protocol A moment to CARE was completed. [...] TIME: 9:09 AM documented in this encounter [facility] 09-03-2023 Note HNO ID: [id number] Author: JULY MORRISON RT(Panfilo) Service: ? Author Type: Technologist Type: Progress Notes Filed: 09/03/2023 08:51 Note Text: Radiology Service Progress Note PATIENT NAME: Jennifer Mednes DATE OF SERVICE: September 03, 2023 TIME: [...] PATIENT PRESENTS WITH AN IMPLANTABLE OR ATTACHED DEBONER: No RADIOLOGY DEPARTMENT: General X-ray: Exam(s) Completed: Pelvis X-Ray: Pelvis with Hip Bilateral PERIPHERAL IV DATA: Not applicable SIGNED BY: RT Devi(R) September 03, 2023 8:51 AM [facility] 09-03-2023 History of Presen t [...] PATIENT PRESENTS WITH AN IMPLANTABLE OR ATTACHED DEBONER: No RADIOLOGY DEPARTMENT: General X-ray: Exam(s) Completed: Pelvis X-Ray: Pelvis with Hip Bilateral PERIPHERAL IV DATA: Not applicable SIGNED BY: RT Devi(Panfilo) September 03, 2023 8:51 AM documented in this encounter [facility] 06-25-2023 Discharge summary Note Date/Time June 25, 2023 7:11am [facility] [address] [place] [address] Discharge Summary Signed Patient: Jennifer Mendes MR#: [id number] : 1980 Acct:[id number] Age/Sex: 42 / F Adm Date: 4 Loc: Room: [address] [place] [address]: Joseph Tello MD Copies to: [...] unit milieu. She has been working with wrapper caser on her aftercare she agreed to continue [...] 99 Discharge Plan Discharge Plan Patient Disposition: computer terminal operator [place] Care/Resident Activity: With Assist Diet: Regular Additional Instructions: Important Contact Information You can call [facility] at [phone] any time day or night if you have emergent questions or question regarding discharge instructions. If at any time you are feeling an increase inyour psychiatric symptoms, call your physician or behavioral healthcare provider. If any time you have thoughts of harming yourself or others contact one of the following: Call (available 28/09) Crisis Text Line (available 28/09) text 4HOPE to [phone] [facility] Hope Line (available 8 a.m. Midnight) call [phone] ([phone]) Prescriptions: Continued aripiprazole 20 mg tablet 20 [...] Joseph Tello MD> 06/25/23 0711 [facility] Work Phone: 1(368) 868-534204-19-2024 Consult note Author Linsey Pradhan [facility] June 24, 2023 11:55pm Note Date/Time June 24, 2023 12: 47pm [facility] [address] [place] [address] Hospitalist Consult Note Signed Patient: Jennifer Mendes MR#: [id number] : 1980 Acct:[id number] Age/Sex: 42 / F Adm Date: 4 Loc: Room: [address] [place] [address] Type: ADM IN Attending Dr: Joseph Tello MD Copies to: NON STAFF MD Anita Hull, PUBLICIST Linsey Pradhan MD~ HPI DATE OF CONSULTATION: [...] Tablet PO 06/21/24 21:59 1,500 mg TID SUASNNA Administration Nicotine Polacrilex 2 mg 06/23/23 06:47 [...] per psychiatric team <Statement entered by Linsey Prdahan MD - 06/24/23 23:52> Attending Physician Attestation: I agree with the findings and plan as documented in this note and have edited itif needed to reflect my findings and plan. Linsey Pradhan MD Documented By: Anita Vann APRN 06/24/23 1244 Signed By: <Electronically signed by CECY Vann> 06/24/231955 <Electronically signed by Linsey Pradhan MD> 06/24/23 8248 [facility] Work Phone: 1(289) 326-864004-18-2024 Progress note Author Joseph martinez [facility] June 24, 2023 6:40am Note Date/Time June 24, 2023 6:4 0am [facility] [address] [place] [address] Psychiatry Progress Note Signed Patient: Jennifer Mendes MR#: [id number] : 1980 Acct:[id number] Age/Sex: 42 / F Adm Date: 4 Loc: Room: [address] [place] [address] Type : ADM IN Attending Dr: Joseph [...] Joseph Tello MD> 06/24/23 0640 [facility] Work Phone: 1(162) 247-389904-17-2024 History and physical note Author Joseph martinez [facility] June 23, 2023 9:03am Note Date/Time June 23, 2023 8:5 8am [facility] [address] [place] [address] Psychiatry H&P Signed Patient: Jennifer Mendes MR#: [id number] : 1980 Acct:[id number] Age/Sex: 42 / F Adm Date: 4 Loc: 1S Room: 7O6813-2 Type: ADM IN Attending Dr: Joseph Tello [...] staff). Documented By: Joseph Tello MD 4 [id number] Signed By: <Electronically signed by Joseph Tello MD> 06/23/23 0903 [facility] Work Phone: 1(427) 381-252003-28-2024 History of Present illness Narrative* Butch Oliva, DO - 06/03/2023 9:42 PM EDT Patient Name: Jennifer Mendes Date of : 1980 Date of Service: 06/03/2023 Facility: [facility] Type of Visit: Skilled Visit Subjective Jennifer Mendes is a 42 y.o. female seen today at snf facility for acute visit. Jennifer She was [...] BY: Butch Oliva DO [facility] History of Present illness Narrative* Butch Oliva DO - 05/28/2023 11:59 PM EDT Patient Name: Jennifer Mendes Date of : 1980 Date of Service: 05/28/2023 Facility: [facility] Type of Visit: Skilled Visit Subjective Jennifer Mendes is a 42 y.o. female seen today at sn[facility] facility for therapy visit. Jennifer is in [...] BY: Butch Oliva DO documented in this encounterSam[facility]itan [facility]03-12-[facility]24 History of Present illness Narrative* Megan Cash APRN-DISPOSAL WORKER - 05/18/2023 11:59 PM EDT Images from the original note were not included. Patient Name: Jennifer Mendes Date of : 1980 Date of Service: 05/18/2023 Facility: [facility] Type of Visit: Skilled Visit Subjective Jennifer Mendes is a 42 y.o. female seen today at snf facility for Chief Complaint Patient presents with Long Term . Is attending physical therapy. States sometimes [...] Anemia Anxiety Arthritis Back pain Bipolar disorder ([facility]) Depression Latent tuberculosis infection Obesity Pneumonia Substance abuse ([facility]) Past Surgical History: Procedure Laterality Date FRACTURE [...] current episode mixed, current episode severity unspecified ([facility]) 3. Primary osteoarthritis of both hips 4. Schizophrenic disorder ([facility]) 5. Class 3 severe obesity due to excess calories with serious comorbidity and body mass index (BMI)of 60.0 to 69.9 in adult ([facility]) 6. Full code status Spinal stenosis of lumbar region Awaiting Medicaid approval to pursue pain management. Referral done, sent to [facility]. -Pain controlled with Oxycodone, [...] Napoles APRN-CNP 05/24/23 1753 documented in this encounterSamaritan Hospital03-08-2024 History of Present illness Narrative* Butch Oliva DO - 05/14/2023 6:37 PM EST Patient Name: Jennifer Mendes Date of : 1980 Date of Service: 05/14/2023 Facility: [facility] Type of Visit: Skilled Visit Subjective Jennifer Mendes is a 42 y.o. female seen today at [facility] facility for therapy visit. Jennifer is in [...] BY: Butch Oliva DO documented in this encounterSamaritan Hospital02-23-2024 History of Present illness Narrative* Butch Oliva DO - 04/30/2023 5:37 PM EST Patient Name: Jennifer Mendes Date of : 1980 Date of Service: 04/30/2023 Facility: [facility] Type of Visit: Admission H&P Subjective Jennifer Mendes is a 42 y.o. female seen today at [facility] facility for admission H&P. jennifer presents to [facility] from the [facility] where she was treated for intractable back [...] scheduled to see a neurosurgeon up in [place] but then her insurance lapsed and the [...] Abdominal wall cellulitis Anemia Anxiety Bipolar disorder ([facility]) Depression Latent tuberculosis infection Pneumonia Past [...] current episode mixed, current episode severity unspecified ([facility]) 4. Anxiety 5. Primary osteoarthritis of both hips 6. TB lung, latent 7. Schizophrenic disorder ([facility]) 8. Class 3 severe obesity due to excess calories without serious comorbidity with body mass index (BMI) of 50.0 to 59.9 in adult ([facility]) Admit to [facility] for therapy. She is motivated to improve. She will need pain management and maybe neurosurgery. Fair to good rehab potential. Full code. Continue medications from the hospital. She was treated for TB with INH per pt. Continue doxycycline for syphilis. ELECTRONICALLY SIGNED BY: Butch Oliva DO documented in this encounterMartin Memorial HospitalInnovalight [id number] NoteCONSULTATION CONSULTATION DATE: 06/16/2022 TO: TRENTON Johnston [...] our patients to inform us about any [id number] medications or herbal remedies/nutritional supplements/alternative remedies. 2. [...] treatment options with their primary care provider.[facility] [id number] NotePROCEDURE: XR HIP LT 2 3V W PELVIS HISTORY: Pain ; left hip pain after falling COMPARISON: None. FINDINGS: BONES:Complete loss of the hip joint spaces bilaterally with subchondral sclerosis, [id number] articulation, and remodeling of the femoral heads and acetabulum. SOFT TISSUES:No visible soft tissue swelling. EFFUSION:None visible. OTHER: Negative. IMPRESSION: 1. No acute bone abnormality. 2. Advanced degenerative changes of hip joints bilaterally. Electronically authenticated by: JEAN CARLOS MEDINA Date: 2022-05-21 11:47[facility] Diagnosis Spinal stenosis of lumbar region, unspecified whether neurogenic claudication present- Primary Syphilis (acquired) Unspecified syphilis Bipolar affective disorder, current episode mixed, current episode severity unspecified ([facility]) Anxiety Anxiety state, unspecified Primary osteoarthritis of both hips TB lung, latent Schizophrenic disorder ([facility]) Unspecified schizophrenia, unspecified condition Class 3 severe obesity due to excess calories without serious comorbidity with body mass index (BMI) of 50.0 to 59.9 in adult ([facility]) documented [facility] this encounter [facility] Diagnosis Spinal stenosis of lumbar region, unspecified whether neurogenic claudication present- Primary Bilateral primary osteoarthritis of hip Muscle weakness (generalized) Other abnormalities of gait and mobility Bipolar affective disorder, current episode mixed, current episode severity unspecified ([facility]) Schizophrenic disorder ([facility]) Unspecified schizophrenia, unspecified condition documented [facility] this encounter [facility]* Diagnosis Spinal stenosis of lumbar region, unspecified whether neurogenic claudication present- Primary Bipolar affective disorder, current episode mixed, current episode severity unspecified ([facility]) Primary osteoarthritis of both hips Schizophrenic disorder ([facility]) Unspecified schizophrenia, unspecified condition Class 3 severe obesity due to excess calories with serious comorbidity and body mass index (BMI) of 60.0 to 69.9 in adult ([facility]) Full code status documented [facility] this encounter [facility]* Diagnosis Bilateral primary osteoarthritis of hip- Primary Muscle weakness (generalized) Other abnormalities of gait and mobility Spinal stenosis of lumbar region, unspecified whether neurogenic claudication present documented [facility] this encounter [facility]* Diagnosis Pedal edema- Primary Edema Intertrigo Other specified erythematous condition Morbid obesity (CMS-HCC) Morbid obesity documented [facility] this encounter [facility]* Diagnosis Onset Date Resolution Status Chronic pain acute Generalized anxiety disorder acute Major depressive disorder, recurrent, moderate acute [facility] Work Phone: Evaluation note* Diagnosis Primary osteoarthritis [...] region and thigh [facility] encounter [facility]* Diagnosis Primary osteoarthritis of both hips- Primary Primary localized osteoarthrosis, pelvic region and thigh documented in this encounter [facility] CenterInstructionsNot on filedocumented in this encounterSamaritan HospitalInstructions* Attachments The following attachments cannot be sent through Care Everywhere. * Bipolar disorder ([place]) documented in this encounterProAvita Health [facility] SystemInstructionsNot on file documented in this encounterSamaritan HospitalInstructionsNot on file documented in this encounterSamaritan Hospital Summary Purpose Family History No Family History [...] HIGH COMPLEX 45 MINS Tang Sloan PA-C [address] [place] [address] [facility] [place] [address] [place] [address] Referral ID Status Reason Start Date Expiration Date Visits Requested Visits Authorized [id number] Pending Review Auto-Generat ed Referral 09/03/2023 09/02/2024 1 1 Specialty Diagnoses / Procedures Referred By Contac t Referred To Contact XR IMAGING Diagnoses Pain in left hip Pain in right hip Procedures XR HIP BILATERAL 5V PEL/AP/LAT EACH HIP RADEX HIPS BILATERAL WITH PELVIS MINIMUM 5 VIEWS Tang Sloan PA-C [address] [place] [address] [place] [id number] Referral ID Status Reason Start Date Expiration Date V isits Requested Visits Authorized [id number] Closed Auto-Generate d Referral 08/30/2023 09/28/2024 1 1 Additional Source Comments INFORMATION SOURCE (unrecogn ized section and content) DATE CREATED AUTHOR [facility]/08/[address] DATE CREATED AUTHOR AUTHOR'S ORGANIZ ATION 07/09/2023 [facility] DATE CREATED AUTHOR AUTHOR'S ORGANIZ ATION 09/09/2023 [facility] DATE CREATED AUTHOR AUTHOR'S ORGANIZ ATION 09/24/2023 [facility] DATE CREATED AUTHOR AUTHOR'S ORGANIZ ATION 10/17/2023 [facility] Care Teams (unrecognized sec tion and content) Full Time Staff Interpreter Relationship Specialty Start Date End Date No Pcp, [place] [address] PCP - General Family Medicine 10/30/22 Full Time Staff Interpreter Relationship Specialty Start Date End Date No Pcp, [place] [address] PCP - General Family Medicine 10/30/22 Full Time Staff Interpreter Relationship Specialty Start Date End Date No Pcp, [place] [address] PCP - General Family Medicine 10/30/22 Full Time Staff Interpreter Relationship Specialty Start Date End Date No Pcp, [place] [address] PCP - General Family Medicine 10/30/22 Full Time Staff Interpreter Relationship Specialty Start Date End Date No Pcp, [place] [address] PCP - General Family Medicine 10/30/22 Team [...] June 25, 2023 Joseph Tello MD Admit Angelique r, Attending Provider Active Start: June 22, [...] 22, 2023 End: June 25, 2023 Vick Doresy DO Other Provider Active Start: June 22, [...] End: June 25, 2023 Ramez Mock , Other Provider Active Start: June 22, 2023 End: June 25, 2023 Rubén Ramirez MD Other Provider Active Start: June 22, 2023 End: June 25, 2023 Candice Blackwood RN Other Provider Active Start: A pri2023 End: June 25, 2023 Wilda Vazquez NP [...] (unrecogniz ed section and content) Reason Comments Long Term Reason Comments Radiology XR Reason Comments New Pain Reason Comments Injections Hip Pain Specialty Diagnoses / Procedures Referred By Contac t Referred To Contact Orthopedics / ORTHOPAEDIC SURGERY Diagnoses Bilateral USGI Hip injections Procedures SERENA INJECT 1 Tang Sloan PA-C [address] [place] [address] Edward Arita DO [address] [place] [address] Referral ID Status Reason Start Date Expiration Date V isits Requested Visits Authorized [id number] Closed Financial Clearance Not Required 09/30/2023 10/31/2023 1 1 Source Comments (unrecognize d section and content) In the event this informatio n is protected by the Federal Confidentiality of Alcohol and Drug Abuse Patient Records regulations: The Federal rules restrict any use of the information to criminally investigate or prosecute any alcohol or drug abuse patient.[facility] CenterIn the event this information is protected by the Federal Confidentiality of Alcohol and Drug Abuse Patient Records regulations: The Federal rules restrict any use of the information to criminally investigate or prosecute any alcohol or drug abuse patient.[facility] CenterIn the event this information is protected by the Federal Confidentiality of Alcohol and Drug Abuse Patient Records regulations: The Federal rules restrict any use of the information to criminally investigate or prosecute any alcohol or drug abuse patient.[facility] FOR RECORDS PERTAINING TO PATIENTS WHO ARE [...] BE BASED ON THE PRIMARY CLINICAL RECORDS. [facility]. provides no warranty or guarantee of the accuracy or completeness of information in this document.
[2023-10-22 06:53] LABS: Basophils Absolute Auto 0.2 10^3/uL (0.0-0.1); Basophils Percent Auto 1.2 % (0.2-2.0); Eosinophils Absolute Auto 0.6 10^3/uL (0.0-0.7); Eosinophils Percent Auto 3.6 % (0.9-7.0); Hematocrit 42.2 % (36.0-48.0); Hemoglobin 13.2 g/dL (12.0-16.0); Immature Granulocytes Abs Auto 0.05 10^3/uL (0.00-0.03); Immature Granulocytes Pct Auto 0.3 % (0.0-0.5); Lymphocytes Absolute Auto 3.3 10^3/uL (1.2-3.8); Lymphocytes Percent Auto 20.1 % (20.5-60.0); Mean Corpuscular HGB Conc 31.3 g/dL (29.9-35.2); Mean Corpuscular Hemoglobin 24.5 pg (26.7-34.0); Mean Corpuscular Volume 78.4 fL (81.0-99.0); Mean Platelet Volume 9.8 fL (9.5-13.5); Monocytes Absolute Auto 1.2 10^3/uL (0.3-0.8); Monocytes Percent Auto 7.3 % (1.7-12.0); Neutrophils Percent Auto 67.5 % (43.0-75.0); Platelet Count 441 10^3/uL (150-450); Red Blood Count 5.38 10^6/uL (4.20-5.40); Red Cell Distribution Width 20.4 % (11.0-15.0); White Blood Count 16.3 10^3/uL (4.0-11.0)
[2023-10-22 07:09] LABS: HCG Quantitative <1 mIU/mL
[2023-10-22 07:10] LABS: Amphetamine Screen Urine POSITIVE (NEGATIVE); Barbiturates Screen Urine NEGATIVE (NEGATIVE); Benzodiazepines Screen Urine POSITIVE (NEGATIVE); Buprenorphine Screen Urine NEGATIVE (NEGATIVE); Cannabinoid Screen Urine POSITIVE (NEGATIVE); Cocaine Screen Urine NEGATIVE (NEGATIVE); Methadone Screen Urine NEGATIVE (NEGATIVE); Methamphetamines Screen Urine NEGATIVE (NEGATIVE); Opiate Screen Urine NEGATIVE (NEGATIVE); Oxycodone Screen Urine POSITIVE (NEGATIVE); Phencyclidine Screen Urine NEGATIVE (NEGATIVE); Tricyclic Antidepressant Urine NEGATIVE (NEGATIVE)
--- NOTE | 2023-10-22 07:34 | PC.NURSE ---
patient states she had cchest pain this am but it only lasted a few min. When asked again patient states is is gone.
--- NOTE | 2023-10-22 07:36 | PC.NURSE ---
anesthesia Dr. Cantu was updated and Dr. Moreno was updates that patient had chest pain and pain has resolved. Patient states she is nervous.
[2023-10-22] MEDS: LACTATED RINGER'S SOLUTION 1,000 ML 75 ML IV (07:40)
--- NOTE | 2023-10-22 09:33 | PM.ONB ---
Brief Operative Note Date of procedure: 10/22/23 Pre-op diagnosis general: menorrhagia Post-op diagnosis: same as pre-op Procedure: NAME OF PROCEDURE: [ ] Melissa endometrial ablation with hysteroscopy. endometrial bx also performed PROCEDURE: The patient was taken back to the OR where she was prepped and draped in the normal sterile fashion after being placed in the dorsal lithotomy position, after being placed under general anesthesia without difficulty.? A weighted speculum was placed into the vagina. The anterior lip was grasped with a single tooth tenaculum. The patient was then sounded to approximated 8cm. The patient?s cervix was gently dilated using hegardilators. The hysteroscope was passed through the cervix into the uterus where both ostia were seen. No gross evidence of polyps, fibroids or malignancy. The cervical length was noted to be 4 cm. The total cavity length is 4cm.? The Melissa ablation apparatus was set to approximately 4cm in length. This was placed through the cervix and into the uterus. After the seal was tested, at that time the total ablation of 120 seconds was performed with the Melissa withoutdifficulty. All instruments were removed from the vagina. Excellent hemostasis noted.? Sponge and lap count correct times 2.? Patient taken to recovery in stable condition. endocell was used and endometrial bx was obtained Anesthesia: GETA and MICHAELLE Surgeon: Mazin Moreno Estimated blood loss (mL): 5 Pathology: other (endometrial biopsy) Condition: stable Disposition: PACU
[2023-10-22] MEDS: PROMETHAZINE HCL 25 MG/ML VIAL IM (10:00)
[2023-10-22] MEDS: HYDROCODONE/ACET 5-325 MG TABLET 1 TAB PO (10:01)
[2023-10-22] MEDS: HYDROMORPHONE HCL 0.5 MG/0.5 ML SYRINGE IV (10:07)
[2023-10-22] MEDS: OXYCODONE HCL/ACETAMINOPHEN 5MG/325MG 1 TAB PO (10:55)
--- NOTE | 2023-10-22 12:10 | PC.NURSE ---
1146 Called report to [place] Nurse, Nika at this time. Reported when she last had pain medication as well.
== END 2023-10-22 11:30 | disposition home or self-care (01) ==
PROVIDERS: Anesthesiology; PCP Family Medicine; Visit Provider Obstetrics & Gynecology
PROC: (CPT 940; principal; 2023-10-22 07:30)
DX: N92.0 Excessive and frequent menstruation with regular cycle (principal); N93.9 Abnormal uterine and vaginal bleeding, unspecified; R10.2 Pelvic and perineal pain; Z87.891 Personal history of nicotine dependence; K21.9 Gastro-esophageal reflux disease without esophagitis; E66.01 Morbid (severe) obesity due to excess calories; Z68.43 Body mass index [BMI] 50.0-59.9, adult
CPT/HCPCS: 58100; 58563; 36415; 80307; 84702; 85025; 88305; J0330; J1100; J1170; J1885; J2250; J2405; J2704; J3010

== ENCOUNTER 2023-11-05 10:35 | Outpatient (OUT) | payer MEDICAID, SELFPAY ==
--- OUTSIDE RECORDS SUMMARY | 2023-11-05 10:47 | XMS_ITS | CCD ---
Author Organization [facility] Care Team Providers Care Pleating Supervisor Name Role Phone SHAMMO, DEMETRIA Primary Care [...] DR DIAZ Admitting Unavailable ROSITA ., DR DIZA Consulting Unavailable ROSITA ., DR DIAZ Attending Unavailable SHAMMO, DEMETRIA Primary Care Unavailable ROSITA ., DR DIAZ Admitting Unavailable ROSITA ., DR DIAZ Consulting Unavailable ROSITA ., DR DIAZ Attending Unavailable ROSITA ., DR DIAZ Admitting Unavailable ROSITA .DR DIAZ Attending Unavailable SHAMMO, DEMETRIA Primary Care Unavailable No Pcp, No Pcp Primary Care Provider Unavailabl e NON STAFF Primary Care Provider Unavailbelen e MD Joseph Tello Attending Provider MD Joseph Tello Admit Provider ANA MARIA Schwartz Other Provider Unavailable ANA MARIA Conway Other Provider Unavailable ANA MARIA Cheney Other Provider Unavailable ANA MARIA Conley Other Provider Unavailable ANA MARIA Clemente Other Provider Unavailable ANA MARIA Quach Other Provider Unavailable MD Fercho Granados Other Provider DO Elsa Webb Other Provider MD Amador Swain Other Provider [phone] DO Vitaly Lees Other Provider [phone] MD Carrillo Escamilla Other Provider MD Ara Carlin Other Provider [phone] MD Benjy Houser Other Provider Unavailable CECY Mata Other Provider MD Linsey Pradhan Other Provider MD Antoine Perez Other Provider MD Elin Root Other Provider MD Miguel Juarez Other Provider DO Modesto Ibarra Other Provider MD Kell Jara Other Provider MD Haris Sneed Other Provider MIR Toribio Other Provider CECY Leavitt Other Provider Unavailable MD Almas Rayo Other Provider MD Adonis Do Other Provider MD Sedrick Ramirez Other Provider MD Amber Jones Other Provider Unavailable MD Trey Rothman Other Provider DO Allison Marin Other Provider DO Inocencio Andino Other Provider [phone] CECY Vann Other Provider DO Vick Dorsey Other Provider MD Chapin Bell Other Provider CECY Fuentes Other Provider [phone] CECY Chisholm Other Provider MD Taras Dunbar Other Provider MD Rickie Lobo Other Provider DO Jluis Harrell T Other Provider DO Ramez Mock Other Provider MD Rubén Ramirez P Other Provider ANA MARIA Blackwood Other Provider Unavailable Vazquez, MILKING WORKER Wilda Other Provider MD Van Moore Other Provider MD Hugo Randolph Other Provider BUTCH OLIVA Primary Care Unavailable JESSICA BRADFORD Attending Unavailable CHEL RAMSEY Attending Unavailable BUTCH OLIVA Referring Unavailable BUTCH OLIVA Primary Care Unavailable Unavailable Primary Care Provider Unavailabl e TANG SLOAN Attending Unavailable TANG SLOAN Referring Unavailable TRAV VALDOVINOS Attending Unavailable TRAV VALDOVINOS Referring Unavailable TRAV VALDOVINOS Attending Unavailable MAZIN MORENO Attending Unavailable MAZIN MORENO Attending Unavailable MAZIN MORENO Attending Unavailable NON STAFF Primary Care Provider UnavailDO Mazin Roman Attending Provider [phone] NON STAFF Primary Care Unavailable Joseph Tello Attending Unavailab le Joseph Tello Admitting Unavailab Amy Cisse Consulting Unavailable Lorena Conway [...] Consulting Unavailable Modesto Ibarra Consulting Unavailable Kell Jraa Consulting Unavailable Haris Sneed Consulting Unavailable Lyudmila Toribio Consulting Unavailable Mark Leavitt Consulting Unavailable Almas Rayo Consulting Unavailab Adonis Camargo Consulting Unavailable Sedrick Ramirez Consulting Unavailable Amber Jones Consulting Unavailable Trey Rothman Consulting Unavailable Allison Marin Consulting Unavailable Inocencio Andino Consulting Unavailable Anita Vann Consulting Unavailable Vick Dorsey Consulting Unavailable Daromar Obaysriramh Joe Consulting Unavailable Becky Fuentes Consulting Unavailable Autumn Chisholm Consulting Unavailable Taras Dunbar Consulting Unavailable Rickie Lobo Consulting Unavailable Jluis Harrell Consulting Unavailable Ramez Mock Consulting Unavailable Rubén Ramirez Consulting Unavailable Candice Blackwood Consulting Unavailable Wilda Vazquez Consulting Unavailable Van Moore Consulting Unavailable Hugo Randolph Consulting Unavailable Mazin Moreno Admitting Unavailable NON STAFF Primary Care Unavailable Mazin Moreno Attending Unavailable Joseph Tello Attending Unavailab Joseph Cavanaugh Admitting Unavailab riya NON STAFF Primary Care Unavailable Allergies Allergy Classification Reported Allergen(s) Allergy Type Date of Onset Reaction(s) Facility Nitroimidazoles (antibiotic) (1 source) metroNIDAZOLE Drug Allergy 8 Hives [facility] Ondansetron (1 source) Ondansetron Drug Allergy 1 Itching [facility] (1 source) metroNIDAZOLE Drug Allergy 3 [facility] Repository (8 sources) metroNIDAZOLE; Translations: [METRONIDAZOLE] Drug Allergy 8 Nausea, Hives [facility] (9 sources) Ondansetron; Translations: [ONDANSETRON HCL] Drug Allergy 1 Itching [facility] (3 sources) metroNIDAZOLE; Translations: [METRONIDAZOLE HCL] Drug Allergy 8 Hives [facility] (1 source) metroNIDAZOLE Drug Allergy 4 [facility] Repository Medications Current Medications Medication Drug Class(es) [...] / oxyCODONE hydrochloride 5 mg oral tablet (2 sources) Opioid Agonist Start: 06-22-2023 take 1 tablet by mouth four times daily Oxycodone-Acetamin ophen Active 1 TAB PO Four times daily June 22, 2023 12:00am ARIPiprazole 20 mg oral tablet (7 sources) Atypical Antipsychotic Start: 06-22-2023 take 20 mg by mouth once daily Aripiprazole Active 20 MG PO Daily June 22, 2023 12:00am Start: 02-06-2023 take 1 tablet by guillermina th in the morning ARIPiprazole (ABILIFY) 5 mg tablet Take 1 tablet (5 mg total) by mouth in the morning. 30 tablet 0 02/06/2023 Active clonazePAM 1 mg oral tablet (2 sources) Benzodiazepine Start: 06-22-2023 take 1 mg by [...] DULoxetine 60 mg delayed release oral capsule (7 sources) Serotonin and Norepinephrine Reuptake Inhibitor Start: 06-22-2023 take 60 mg by mouth twice daily Duloxetine Active 60 MG PO Twice daily June 22, 2023 12:00am Start: 02-06-2023 take 1 capsule by [facility] in the morning DULoxetine 40 mg capsule,delayed release(DR/EC) Take 40 mg by mouth in the morning. 30 capsule 0 02/06/2023 Active ergocalciferol 1.25 mg oral capsule (2 sources) Provitamin D2 Compound Start: 06-25-2023 take 1250 ug by mouth every week Ergocalciferol (Vitamin D2) Active 1250 MCG PO Q7D@0900 30 30 June 25, 2023 12:00am famotidine 20 mg oral tablet (2 sources) Histamine-2 Receptor Antagonist Start: 06-22-2023 take 20 mg by mouth once daily Famotidine Active 20 MG PO Daily June 22, 2023 12:00am furosemide 20 mg oral tablet (2 sources) Loop Diuretic Start: 06-22-2023 take 20 mg by mouth once daily Furosemide Active 20 MG PO Daily June 22, 2023 12:00am gabapentin 600 mg oral tablet (2 sources) Anti-epileptic Agent Start: 06-22-2023 take 600 mg by mouth three times daily Gabapentin Active 600 MG PO Three times daily June 22, 2023 12:00am ibuprofen 800 mg oral tablet (7 sources) Nonsteroidal Anti-inflammatory Drug Start: 06-22-2023 take 800 mg by mouth three times daily Ibuprofen Active 800 MG PO Three times daily June 22, 2023 12:00am Start: 02-28-2023 [facility] eight hours as needed ibuprofen [...] 02/05/2023 Active methocarbamol 500 mg oral tablet (2 sources) Muscle Relaxant Start: 06-22-2023 take 1500 mg by mouth three times daily Methocarbamol Active 1500 MG PO Three times daily June 22, 2023 12:00am prazosin 5 mg oral capsule (2 sources) alpha-Adrenergic Aurelia Start: 06-22-2023 take 5 mg by mouth at bedtime Prazosin Active 5 MG PO Bedtime June 22, 2023 12:00am traZODone hydrochloride 50 mg oral tablet (2 sources) Serotonin Reuptake Inhibitor Start: 06-25-2023 take 50 mg by mouth once daily at bedtime Trazodone Active 50 MG PO Daily at bedtime 15 15 June 25, 2023 12:00am Completed/Discontinued Medications Medication Drug Class(es) Dates Sig (Normalized) Sig (Original) 10 ml lidocaine hydrochloride 10 mg/ml injection (8 sources) Antiarrhythmic, Amide Local Anesthetic Start: 09-30-2023 [...] Problem Date Documented Date Episodic/Chronic Anxiety disorders (11 sources) Anxiety; Translations: [Anxiety disorder, unspecified] Onset: [...] MENSTRUATION UNSPECIFIED] Onset: 05-28-2022 Chronic Mood disorders (12 sources) Bipolar affective disorder, current episode mixed; [...] 06-24-2022 06-25-2023 Chronic Other nervous system disorders (2 sources) Chronic pain; Translations: [Other chronic pain] 06-23-2023 [...] Test Name Value Interpretation Reference Range Facility Pathology Request for Lab Co rpon 10-22-2023 Pathology Request for Lab Larry Normal [facility] Comment on above: Order Comment: PATHO LOGY [facility] SPECIMEN Result Comment: See report. Scanned copy available in EMR. PERFORMED BY: [address] [place] [address] PATHOLOGIST MARKET RESEARCH ANALYST JANNETTE ROTHMAN M.D. Performed By: #### P ATH TO [facility] #### [facility] [address] [id number] [facility] Large Joint Arthro/Inj: bila teral hip jointson 09-30-2023 Edward Arita DO 09/30/2023 11:44 AM Large Joint Arthro/Inj: bilateral hip joints Informed Consent Consent Obtained: Verbal [place] Protocol A moment to CARE was completed. [...] Plan of Care Visit completed when applicable [facility] US HIP-INJECTION LT (POC) OR I USE ONLYon 09-30-2023 [facility] US HIP-INJECTION RT (POC) OR I USE ONLYon 09-30-2023 [facility] CNOVon 09-03-2023 CNOV Office Visit (LOORRM ) JENNIFER MENDES ([id number]) [address] [facility] Date Time Provider Department 09/03/23 8:30 AM KEYSHAWN TANG LOORRJoe During your visit today, we recorded the [...] She reports that she moved here from [place] and moved in with her sisters in the last few years but moved into a assisted in the last year when she could not get around or do self-care. She is now living in a assisted facility. Has significant pain in her back [...] gabapentin and methadone all given at the assisted without great pain control. She has done physical therapy as well. She has schizoaffective disorder but otherwise is fairly healthy. She notes that her weight was 268 when she entered the assisted but is now 320. Pain level is [...] 4/5 Other (more content not included)... Normal [facility] Large Joint Arthro/Inj: R rani nixon trochanteric bursaon 09-03-2023 Tang Sloan PA-C 09/07/2023 4:29 PM Large Joint Arthro/Inj: R greater trochanteric bursa Informed Consent Consent Obtained: Verbal [place] Protocol A moment to CARE was completed. [...] of Care Visit completed when applicable Third democrat verified by Monae Vaca MA. [facility] XR HIP JORGE LUIS 5V PEL+ [...] No fracture. IMPRESSION: SEVERE BILATERAL HIP OSTEOARTHRITIS. Feller Hand: FAY Transcribe Date/Time: Sep 03 2023 11:04A Dictated by : EVA ZARATE MD This examination was interpreted and the report reviewed and electronically signed by: EVA ZARATE MD on Sep 03 2023 11:05AM EST [id number] Normal [facility] XR HIP BILATERAL 5V PEL/AP/L AT EACH HIPon 09-03-2023 IMPRESSION: SEVERE BILATERAL HIP OSTEOARTHRITIS. Feller Hand: PSCB Transcribe Date/Time: Sep 03 2023 11:04A [...] pubis. No fracture. DIVISION OF RADIOLOGY Provider, [facility] - 09/03/2023 * * *Final Report* [...] fracture. IMPRESSION IMPRESSION: SEVERE BILATERAL HIP OSTEOARTHRITIS. Feller Hand: FAY Transcribe Date/Time: Sep 03 2023 11:04A Dictated by : EVA ZARATE MD This examination was interpreted and the report reviewed and electronically signed by: EVA ZARATE MD on Sep 03 2023 11:05AM EST [facility] Radiology Study observation (narrative) Jamar owen [facility] XR HIP BILATERAL 5V PEL/AP/L AT EACH HIPOrdered By: Ccf Provider on 09-03-2023 [facility] Cholesterol [Mass/volume] in Serum or PlasmaOrdered By: Joseph Tello on 06-23-2023 Cholesterol [Mass/Vol] 172 mg/dL Normal 140-200 [facility] Comment on above: Chol less than 200 m g/dl low riskChol 201-239 mg/dl borderline riskChol 240 mg/dl and greater high risk Order Comment: WALDEMARI KEIRY Y Result Comment: Chol less than 200 mg/dl low risk Chol 201-239 mg/dl borderline risk Chol 240 mg/dl and greater high risk Performed By: #### T SH3 wRFLX, LIPID, [id number] #### [facility] [address] Cholesterol in LDL Calc [Mas s/Vol]Ordered By: Joseph Tello on 06-23-2023 Cholesterol in LDL [Mass/Vol] 100 mg/dL 0-100 [facility] Comment on above: LDL ATP III CLASSIFI CATIONLDL less than 100 mg/dL OptimalLDL 100-129 mg/dL Near or above optimalLDL 130-159 mg/dL Borderline highLDL 160-189 mg/dL HighLDL greater than 189 mg/dL Very high Cholesterol in VLDL Calc [Ma ss/Vol]Ordered By: Joseph Tello on 06-23-2023 Cholesterol in VLDL [Mass/Vol] 44 mg/dL [facility] ECG 12 lead ECGon 06-23-2023 ECG 12 lead ECG [facility] [place] [address] [place] [address] Electrocardiograph Report Signed Patient: Jennifer Mendes MR#: [id number] : 1980 Acct:[id number] Age/Sex: 42 / F ADM Date: 06/22/23 Loc: Room: [address] [place] [address] Type: ADM IN Attending Dr: Joseph Tello [...] previous ECGs available Confirmed by Sekou Maciel ([id number]) on 06/23/2023 11:23:15 AM Referred By: Electronically Signed By:Sekou Maciel Transcribed By: MUS Signed By Sekou Maciel MD 06/23/23 1123 Normal [facility] Lipid Panelon 06-23-2023 LDL Cholesterol,Calculated 100 mg/dL Normal 0-100 [facility] Comment on above: Order Comment: ANGELIQUE Ornelas Result Comment: LDL ATP III CLASSIFICATION LDL less than 100 mg/dL Optimal LDL 100-129 mg/dL Near or above optimal LDL 130-159 mg/dL Borderline high LDL 160-189 mg/dL High LDL greater than 189 mg/dL Very high Performed By: #### T SH3 wRFLX, LIPID, [id number] #### [facility] [address] Triglyceride w/Reflex 220 mg/dL High 0-149 [facility] Comment on above: Order Comment: ANGELIQUE Ornelas Result Comment: TRIG ATP III CLASSIFICATION TRIG less than 150 mg/dL Normal TRIG 150-199 mg/dL Borderline high TRIG 200-500 mg/dL High TRIG greater than 500 mg/dL Very high Standard traceable to the Center for Disease Conrtrol and Prevention (CDC) test method. Performed By: #### T SH3 wRFLX, LIPID, [id number] #### [facility] [address] VLDL CHOLESTEROL 44 mg/dL Normal [facility] Comment on above: Order Comment: FASTI NG Y Performed By: #### T SH3 wRFLX, LIPID, [id number] #### [address] Serum or plasma high density lipoprotein (HDL) cholesterol measurementOrdered By: Joesph Tello on 06-23-2023 Cholesterol in HDL [Mass/Vol] 28 mg/dL Normal 23-92 [facility] Comment on above: HDL CHOL ATP-III CLA SSIFICATION Cardiovascular RiskHDL > or equal to 60 mg/dL LOWHDL < 40 mg/dL HIGH Order Comment: FASTI NG Y Result Comment: HDL CHOL ATP-III CLASSIFICATION Cardiovascular Risk HDL > or equal to 60 mg/dL LOW HDL < 40 mg/dL HIGH Performed By: #### T SH3 wRFLX, LIPID, [id number] #### [facility] [address] [place] [address] Serum or plasma total choles terol/high density lipoprotein (HDL) cholesterol mass ratOrdered By: Joseph Tello on 06-23-2023 Cholesterol.total/Cholest mitch in HDL [Mass ratio] 6.1 {ratio} Normal <5.0 [facility] Comment on above: Order Comment: FASTI NG Y Performed By: #### T SH3 wRFLX, LIPID, [id number] #### [facility] [address] Thyroid Stim Hormone w/Rflxo n 06-23-2023 Thyroid Stim Hormone w/Rflx 2.27 u[iU]/mL Normal 0.45-5.33 [facility] Comment on above: Order Comment: FASTI NG Y Performed By: #### T SH3 wRFLX, LIPID, [id number] #### [address] Thyrotropin [Units/volume] i n Serum or PlasmaOrdered By: Joseph Tello on 06-23-2023 TSH Qn 2.27 m[IU]/L 0.45-5.33 [facility] Triglyceride [Mass/volume] i n Serum or PlasmaOrdered By: Joseph eTllo on 06-23-2023 Triglyceride [Mass/Vol] 220 mg/dL 0-149 [facility] Comment on above: TRIG ATP III CLASSIF ICATIONTRIG less than 150 mg/dL NormalTRIG 150-199 mg/dL Borderline highTRIG 200-500 mg/dL High TRIG greater than 500 mg/dL Very highStandard traceable to the Center for Disease Conrtrol and Prevention (CDC) test method. Vitamin D 25 Hydroxy Totalon 06-23-2023 Vitamin D 25 Hydroxy Total 13.4 ng/mL Low 30-100 [facility] Comment on above: Order Comment: FASTI NG Y Result Comment: DELVIS MIN D STATUS 25(OH)VITAMIN D RANGE (ng/mL) Deficient <20 Insufficient 20 to <30 Sufficient 30 to 100 Reference: Ricky Phipps, Shan KEARNEY, et al. Evaluation,treatment, and prevention of vitamin D deficiency; an Endocrine Society clinical practice guideline. JCEM. 2010; 96(7):1911-30. PERFORMED BY: [place] [address] PATHOLOGIST MARKET RESEARCH ANALYST JANNETTE ROTHMAN M.D. Performed By: #### T SH3 wRFLX, LIPID, [id number] #### [facility] [address] Vitamin D+Metabolites [Mass/ volume] in Serum or PlasmaOrdered By: Joseph Tello on 06-23-2023 Vitamin D+Metabolites [Mass/Vol] 13.4 ng/mL 30-100 [facility] Comment on above: VITAMIN D STATUS 25( [place])VITAMIN D RANGE (ng/mL) Deficient <20 Insufficient 20 to <30Sufficient 30 to 100Reference: Ricky Phipps, Shan KEARNEY, et al. Evaluation,treatment, and prevention of vitamin D deficiency; an Endocrine Society clinical practice guideline. JCEM. 2010; 96(7):1911-30. ACETAMINOPHENon 06-22-2023 Acetaminophen [Mass/Vol] 5.1 ug/mL Low 10.0-30.0 [facility] Comment on above: Result Comment: Refe rence ranges are for therapeutic limits. Performed By: #### C CHANTELL, 4024-6, 5643-2, 3298-7, CBCA #### [facility] ([id number]) [address] [place] [address]73 CBC AND AUTO DIFFon 06-22-19 ABSOLUTE BASOPHIL 0.2 X10E9/L Normal 0.0-0.2 [facility] Comment on above: Performed By: #### C CHANTELL, 4024-6, 5643-2, 3298-7, CBCA #### [facility] ([id number]) [address] [place] [address]148 ABSOLUTE NEUTROPHIL 8.5 X10E9/L High 1.5-6.6 [facility] Comment on above: Performed By: #### C CHANTELL, 4024-6, 5643-2, 3298-7, CBCA #### [facility] ([id number]) [address] [place] [address] 12513 Basophils/100 WBC (Bld) 1.5 % Normal [facility] Comment on above: Performed By: #### C CHANTELL, 4024-6, 5643-2, 3298-7, CBCA #### [facility] ([id number]) [address] [place] [address] 70163 Eosinophils (Bld) [#/Vol] 0.9 10*3/uL High 0.0-0.4 [facility] Comment on above: Performed By: #### C CHANTELL, 4024-6, 5643-2, 3298-7, CBCA #### [facility] ([id number]) [address] [place] [address] 97780 Eosinophils/100 WBC (Bld) 6.5 % Normal [facility] Comment on above: Performed By: #### C CHANTELL, 4024-6, 5643-2, 3297-7, CBCA #### [facility] ([id number]) [address] [place] [address]207 Erythrocyte distribution width (RBC) [Ratio] 18.1 % High 11.5-15.0 [facility] Comment on above: Performed By: #### C CHANTELL, [facility], [facility]-2, 3297-09, CBCA #### [facility] ([id number]) [address] [place] [address] 28046 Hematocrit (Bld) [Volume fraction] 35.5 % Normal 35-47 [facility] Comment on above: Performed By: #### C CHANTELL, [facility], [facility]-2, 3297-09, CBCA #### [facility] ([id number]) [address] [place] [address] 63133 Hemoglobin (Bld) [Mass/Vol] 11.2 g/dL Low 11.7-15.5 [facility] Comment on above: Performed By: #### C CHANTELL, [facility], [facility]-2, 32910-12, CBCA #### [facility] ([id number]) [address] [place] [address] 95261 Lymphocytes (Bld) [#/Vol] 3.1 10*3/uL Normal 1.0-3.5 [facility] Comment on above: Performed By: #### C CHANTELL, [facility]-6, 5643-2, 3297-09, CBCA #### [facility] ([id number]) [address] [place] [address] 33340 Lymphocytes/100 WBC (Bld) 22.2 % Normal [facility] Comment on above: Performed By: #### C CHANTELL, 4024-6, 5643-2, 7, CBCA #### [facility] ([id number]) [address] [place] [address] 51126 MCH (RBC) [Entitic mass] 23.1 pg Low 27-34 [facility] Comment on above: Performed By: #### Rene ABDUL, [facility]6, 56-2, 3297-09, CBCA #### [facility] ([id number]) [address] [place] [address] 00417 MCHC (RBC) [Mass/Vol] 31.4 g/dL Low 32-36 [facility] Comment on above: Performed By: #### Rene ABDUL, [facility], [facility]-2, 3297-09, CBCA #### [facility] ([id number]) [address] [place] [address] 59527 MCV (RBC) [Entitic vol] 74 fL Low 80-100 [facility] Comment on above: Performed By: #### Rene ABDUL, [facility]-6, [facility]-2, 3297-09, CBCA #### [facility] ([id number]) [address] [place] [address] 91658 Monocytes (Bld) [#/Vol] 1.1 10*3/uL High 0-0.9 [facility] Comment on above: Performed By: #### Rene ABDUL, [facility]-6, 5643-2, 3297-09, CBCA #### [facility] ([id number]) [address] [place] [address] 19085 Monocytes/100 WBC (Bld) 8.0 % Normal [facility] Comment on above: Performed By: #### C CHANTELL, [facility]-6, 5643-2, 3297-09, CBCA #### [facility] ([id number]) [address] [place] [address] 30334 Neutrophils/100 WBC (Bld) 61.8 % Normal [facility] Comment on above: Performed By: #### C CHANTELL, 4024-6, 5643-2, 329-7, CBCA #### [facility] ([id number]) [address] [place] [address] 13692 Platelet mean volume (Bld) [Entitic vol] 7.9 fL Normal 7-12 [facility] Comment on above: Performed By: #### C CHANTELL, 4024-6, 5643-2, 329-, CBCA #### [facility] ([id number]) [address] [place] [address] 17674 Platelets (Bld) [#/Vol] 530 10*3/uL High 150-450 [facility] Comment on above: Performed By: #### C CHANTELL, [facility]-6, 5643-2, 32910-12, CBCA #### [facility] ([id number]) [address] [place] [address] 99785 RBC COUNT 4.82 X10E12/L Normal 3.80-5.20 [facility] Comment on above: Performed By: #### C CHANTELL, 4024-6, 5643-2, 32910-12, CBCA #### [facility] ([id number]) [address] [place] [address] 10154 WBC (Bld) [#/Vol] 13.8 10*3/uL High 4.0-11.0 [facility] Comment on above: Performed By: #### C CHANTELL, 4024-6, 5643-2, 3298-, CBCA #### [facility] ([id number]) [address] [place] [address] 05010 COMPREHENSIVE METABOLIC PANE Jace 06-22-2023 Albumin [Mass/Vol] 3.6 g/dL Normal 3.2-5.3 [facility] Comment on above: Performed By: #### C CHANTELL, 4024-6, 5643-2, 3297-7, CBCA #### [facility] ([id number]) [address] [place] [address] 41647 ALP [Catalytic activity/Vol] 51 U/L Normal 39-130 [facility] Comment on above: Performed By: #### C CHANTELL, 4024-6, 5643-2, 7, CBCA #### [facility] ([id number]) [address] [place] [address] 34098 ALT [Catalytic activity/Vol] 18 U/L Normal 0-31 [facility] Comment on above: Performed By: #### C CHANTELL, 4024-6, 5643-2, 7, CBCA #### [facility] ([id number]) [address] [place] [address] 87802 Anion gap [Moles/Vol] 6 mmol/L Normal 5-15 [facility] Comment on above: Performed By: #### C CHANTELL, 4024-6, 5643-2, 3297-09, CBCA #### [facility] ([id number]) [address] [place] [address] [id number] AST [Catalytic activity/Vol] 14 U/L Normal 0-41 [facility] Comment on above: Performed By: #### C CHANTELL, 4024-6, 5643-2, 3297-09, CBCA #### [facility] ([id number]) [address] [place] [address] 97745 Bilirubin [Mass/Vol] 0.6 mg/dL Normal 0.3-1.2 [facility] Comment on above: Performed By: #### C CHANTELL, 4024-6, 5643-2, 3297, CBCA #### [facility] ([id number]) [address] [place] [address] 50942 Calcium [Mass/Vol] 9.0 mg/dL Normal 8.5-10.5 [facility] Comment on above: Performed By: #### C CHANTELL, 4024-6, 5643-2, 3297-7, CBCA #### [facility] ([id number]) [address] [place] [address] 89845 Chloride [Moles/Vol] 104 mmol/L Normal 98-109 [facility] Comment on above: Performed By: #### C CHANTELL, 4024-6, 5643-2, 7, CBCA #### [facility] ([id number]) [address] [place] [address] 10417 CO2 [Moles/Vol] 26 mmol/L Normal 22-32 [facility] Comment on above: Performed By: #### C CHANTELL, 4024-6, 5643-2, 3297-09, CBCA #### [facility] ([id number]) [address] [place] [address] 30585 Creatinine [Mass/Vol] 0.84 mg/dL Normal 0.40-1.00 [facility] Comment on above: Result Comment: METH OD TRACEABLE TO IDMS STANDARD Performed By: #### C CHANTELL, 4024-6, 5643-2, 3297, CBCA #### [facility] ([id number]) [address] [place] [address] 25531 GFR/1.73 sq M.predicted among non-blacks MDRD (S/P/Bld) [Vol rate/Area] 88 mL/min/{1.73_m2} Normal >59 [facility] Comment on above: Result Comment: Reported eGFR is based on the CKD-EPI 2020 equation that does not use a race coefficient. Performed By: #### C CHANTELL, 4024-6, 5643-2, 3298-7, CBCA #### [facility] ([id number]) [address] [place] [address] Glucose [Mass/Vol] 96 mg/dL Normal 65-99 [facility] Comment on above: Performed By: #### C CHANTELL, 4024-6, 5643-2, 3298-7, CBCA #### [facility] ([id number]) [address] [place] [address] 14046 Potassium [Moles/Vol] 3.9 mmol/L Normal 3.5-5.0 [facility] Comment on above: Performed By: #### C CHANTELL, 4024-6, 5643-2, 3298-7, CBCA #### [facility] ([id number]) [address] [place] [address] 74736 Protein [Mass/Vol] 8.0 g/dL Normal 6.0-8.0 [facility] Comment on above: Performed By: #### C CHANTELL, 4024-6, 5643-2, 3297, CBCA #### [facility] ([id number]) [address] [place] [address] 53115 Sodium [Moles/Vol] 136 mmol/L Normal 134-146 [facility] Comment on above: Performed By: #### C CHANTELL, 4024-6, 5643-2, 3298-7, CBCA #### [facility] ([id number]) [address] [place] [address] 33267 Urea nitrogen [Mass/Vol] 21 mg/dL Normal 5-23 [facility] Comment on above: Performed By: #### C CHANTELL, 4024-6, 5643-2, 3298-7, CBCA #### [facility] ([id number]) [address] [place] [address] 18310 DRUG SCREEN, URINEon 024 AMPHETAMINE/METHAMP Negative Normal NEG [facility] Comment on above: Result Comment: AMPH /METH screening cut off = 1000 ng/mL Performed By: #### D CRUZ #### [facility] ([id number]) [address] [place] [address] 62953 BARBITURATES Negative Normal NEG [facility] Comment on above: Result Comment: Ella iturates screening cut off value = 200 ng/mL Performed By: #### D CRUZ #### [facility] ([id number]) [address] [place] [address] 00706 BENZODIAZEPINES Negative Normal NEG [facility] Comment on above: Result Comment: Feng odiazepines screening cut off value = 200 ng/mL Performed By: #### D CRUZ #### [facility] ([id number]) [address] [place] [address] 90437 CANNABINOIDS Positive Abnormal NEG [facility] Comment on above: Result Comment: Conf irmation available upon request. Cannabinoids/THC screening cut off value = 50 ng/mL Performed By: #### D CRUZ #### [facility] ([id number]) [address] [place] [address] 62148 COCAINE METABOLITE Negative Normal NEG [facility] Comment on above: Result Comment: Coca ine screening cut off value = 300 ng/mL Performed By: #### D CRUZ #### [facility] ([id number]) [address] [place] [address] 60795 ECSTASY Negative Normal NEG [facility] Comment on above: Result Comment: Ecst asy screening cut off value = 500 ng/mL This report is intended for use in clinical monitoring or management of patients. Performed By: #### D CRUZ #### [facility] ([id number]) [address] [place] [address] 70744 METHADONE Negative Normal NEG [facility] Comment on above: Result Comment: Meth adone screening cut off value = 300 ng/mL. Performed By: #### D CRUZ #### [facility] ([id number]) [address] [place] [address] 00174 OPIATES Negative Normal NEG [facility] Comment on above: Result Comment: Opia alesha screening cut off value = 300 ng/mL NOTE: This test is used for the detection of codeine, hydrocodone (>1000 ng/mL), morphine and hydromorphone (>900 ng/mL) in urine. Performed By: #### D CRUZ #### [facility] ([id number]) [address] [place] [address] 61884 OXYCODONE Positive Abnormal NEG [facility] Comment on above: Result Comment: Conf irmation available upon request. Oxycodone screening cut off value = 300 ng/mL NOTE: This test is used for the detection of oxycodone and oxymorphone in urine. Performed By: #### D CRUZ #### [facility] ([id number]) [address] [place] [address] 13281 PHENCYCLIDINE Negative Normal NEG [facility] Comment on above: Result Comment: Phen cyclidine screening cut off value = 25 ng/mL Performed By: #### D CRUZ #### [facility] ([id number]) [address] [place] [address] 08542 ETHANOLon 06-22-2023 Ethanol [Mass/Vol] mg/dL Normal 0.00-0.08 [facility] Comment on above: Result Comment: This report is intended for use in clinical monitoring or management of patients. Performed By: #### C MP, 4024-6, 5643-2, 3298-7, CBCA #### [facility] ([id number]) [address] [place] [address] 53489 HCG ( test) Ql (U)o n 06-22-2023 Beta HCG ( test) Ql (U) Negative Normal NEG [facility] Comment on above: Performed By: #### 2 106-3 #### [facility] ([id number]) [address] [place] [address] 08522 Salicylates [Mass/Vol]on SALICYLATE <4.0 Normal 2.0-25.0 [facility] Comment on above: Result Comment: Refe rence ranges are for therapeutic limits. Performed By: #### C MP, 4024-6, 5643-2, 3298-7, CBCA #### [facility] ([id number]) [address] [place] [address] 89460 URN MACROSCOPIC NURon 2023 BILIRUBIN [place] Negative Normal NEG [facility] Comment on above: Performed By: #### N UM #### [facility] ([id number]) [address] [place] [address] 83767 BLOOD/HGB [place] Trace Abnormal NEG [facility] Comment on above: Performed By: #### N UM #### [facility] ([id number]) [address] [place] [address] [place] [address] GLUCOSE [place] Negative Normal NEG [facility] Comment on above: Performed By: #### N UM #### [facility] ([id number]) [address] [place] [address] [place] [address] KETONES [place] Negative Normal NEG [facility] Comment on above: Performed By: #### N UM #### [facility] ([id number]) [address] [place] [address] [place] [address] LEUKOCYTE ESTERASE [place] MODERATE Abnormal NEG [facility] Comment on above: Performed By: #### N UM #### [facility] ([id number]) [address] [place] [address] [place] [address] NITRITE [place] Negative Normal NEG [facility] Comment on above: Performed By: #### N UM #### [facility] ([id number]) [address] [place] [address] [place] [address] PH [place] 5.0 Normal 5.0-8.5 [facility] Comment on above: Performed By: #### N UM #### [facility] ([id number]) [address] [place] [address] 41025 PROTEIN LCEVELAND Negative Normal NEG [facility] Comment on above: Performed By: #### N UM #### [facility] ([id number]) [address] [place] [address] 12096 SPECIFIC GRAVITY [place] 1.015 Normal 1.003-1.035 [facility] Comment on above: Performed By: #### N UM #### [facility] ([id number]) [address] [place] [address] 57660 UROBILINOGEN [place] 0.2 eu/dL Normal <1.1 [facility] Comment on above: Performed By: #### N UM #### [facility] ([id number]) [address] [place] [address] 55946 PAP ACOG PANEL 2: 30 to 65on 06-03-2022 . . Normal [facility] Comment on above: Result Comment: Perf ormed at: WB Performed By: #### 4 [id number] #### [facility] [address] [place] [address] Dr. Dustin Hoover Age Gdln ACOG Testing 30-65 Normal [facility] Comment on above: Performed By: #### 4 [id number] #### [facility] [address] [place] [address] Dr. Dustin Hoover DIAGNOSIS: Comment Abnormal [facility] Comment on above: Result Comment: EPIT HELIAL CELL ABNORMALITY. ATYPICAL SQUAMOUS CELLS OF UNDETERMINED SIGNIFICANCE (ASC-US). TRICHOMONAS VAGINALIS IS PRESENT. Performed at: WB Performed By: #### 4 [id number] #### [facility] [address] [address] [address] Dustin Hoover Electronically signed by: Comment Normal [facility] Comment on above: Result Comment: Andreia López MD, Pathologist Performed at: WB Performed By: #### 4 [id number] #### [facility] [address] [address] [address] Dustin Hoover HPV Aptima Negative Normal Negative [facility] Comment on above: Result Comment: This nucleic acid amplification test detects fourteen high-risk HPV types (16,18,31,33,35,39,45,51,52,56,58,59,66,68) without differentiation. Performed at: =G Performed By: #### 4 [id number] #### [facility] [address] [place] [address] Dr. Dustin Hoover HPV Genotype Reflex Comment Normal [facility] Comment on above: Result Comment: Crit eria not met, HPV Genotype not performed. Performed at: WB Performed By: #### 4 [id number] #### [facility] [address] [place] [address] Dr. Dustin Hoover Methodology: Comment Normal [facility] Comment on above: Result Comment: This liquid based ThinPrep(R) pap test was screened with the use of an image guided system. Performed at: WB Performed By: #### 4 [id number] #### [facility] [address] [place] [address] Dr. Dustin Hoover Note: Comment Normal [facility] Comment on above: Result Comment: The Pap smear is a screening test designed to aid in the detection of premalignant and malignant conditions of the uterine cervix. It is not a diagnostic procedure and should not be used as the sole means of detecting cervical cancer. Both false-positive and false-negative reports do occur. . Performed at: WB Performed By: #### 4 [id number] #### [facility] [address] [place] [address] Dr. Dustin Hoover Pathologist Provided ICD10 Comment Normal [facility] Comment on above: Result Comment: R87. 610, R87.5 Performed at: WB Performed By: #### 4 [id number] #### [facility] [address] [place] [address] Dr. Dustin Hoover Performed by: Comment Normal [facility] Comment on above: Result Comment: Bernadette Tucker, [employer] (ASCP) Performed at: WB Performed By: #### 4 [id number] #### [facility] [address] [place] [address] Dr. Dustin Hoover Recommendation: Comment Abnormal [facility] Comment on above: Result Comment: Sugg est follow up as clinically appropriate. Performed at: WB Performed By: #### 4 [id number] #### [facility] [address] [place] [address] Dr. Dustin Hoover Specimen adequacy: Comment Normal [facility] Comment on above: Result Comment: Sati sfactory for evaluation. Endocervical and/or squamous metaplastic cells (endocervical component) are present. Performed at: WB Performed By: #### 4 [id number] #### [facility] [address] [place] [address] Dr. Dustin Hoover LIPID PROFILEon 05-28-2022 CHOL-HDL RATIO NORM SEE BELOW Normal [facility] Comment on above: Result Comment: 3.3 - 4.4 LOW RISK 4.4 - 7.1 AVERAGE RISK 7.1 - 11.0 MODERATE RISK >11.0 HIGH RISK Performed By: #### P TT, PT #### [facility] [address] [place] [address] Dr. Dustin Hoover Cholesterol [Mass/Vol] 180 mg/dL Normal <=200 Th [facility] Comment on above: Performed By: #### P TT, PT #### [facility] [address] [place] [address] Dr. Dustin Hoover Cholesterol in HDL [Mass/Vol] 32 mg/dL Critically low 40-60 [facility] Comment on above: Performed By: #### P TT, PT #### [facility] [address] [address] [address] Dustin Hoover Cholesterol in LDL [Mass/Vol] 108.6 mg/dL Normal [facility] Comment on above: Performed By: #### P TT, PT #### [facility] [address] [place] [address] Dr. Dustin Hoover Cholesterol.total/Cholest mitch in HDL [Mass ratio] 5.6 {ratio} Normal [facility] Comment on above: Performed By: #### P TT, PT #### [facility] [address] [place] [address] Dr. Dustin Hoover HDL NORMAL > or = 60 mg/dl - LO W CARDIOVASCULAR RISK <40 mg/dl - HIGH CARDIOVASCULAR RISK Normal [facility] Comment on above: Performed By: #### P TT, PT #### [facility] [address] [address] [address] Dustin Hoover LDL CALC NORMAL SEE BELOW Normal [facility] Comment on above: Result Comment: <100 mg/dl OPTIMAL 100 - 129 mg/dl NEAR OR ABOVE OPTIMAL 130 - 159 mg/dl BORDERLINE HIGH 160 - 189 mg/dl HIGH >190 mg/dl VERY HIGH Performed By: #### P TT, PT #### [facility] [address] [address] [address] Dustin Hoover Triglyceride [Mass/Vol] 197 mg/dL Critically high <=150 [facility] Comment on above: Performed By: #### P TT, PT #### [facility] [address] [address] [address] Dustin Hoover VLDL CALC 39.4 mg/dL Normal [facility] Comment on above: Performed By: #### P TT, PT #### [facility] [address] [address] [address] Dustin Hoover MG MAMM SCREEN 3D JORGE LUIS CADon 05-28-2022 MG MAMM SCREEN 3D JORGE LUIS CAD Patient: JENNIFER MANZANO Exam Date: 05/28/2022 : 1980 Gender:F Ordering : DEMETRIA PHILLIPS Admission #: [id number] Family : Order #: [id number] CLICK HERE TO VIEW EXAM RADIOLOGY REPORT [...] breast cancer at age 64. LOCATION: [facility] BREAST COMPOSITION: Almost entirely fatty. FINDINGS: [...] Medina M.D. on 05/28/2022 at 13:16 Normal [facility] PROF 14(COMP METB)on 023 Albumin [Mass/Vol] 3.3 g/dL Critically low 3.4-5.0 [facility] Comment on above: Performed By: #### P TT, PT #### [facility] [address] [address] [address] Dustin Hoover Albumin/Globulin [Mass ratio] 0.9 {ratio} Normal [facility] Comment on above: Performed By: #### P TT, PT #### [facility] [address] [place] [address] Dr. Dustin Hoover ALP [Catalytic activity/Vol] 54 U/L Normal 46-116 [facility] Comment on above: Performed By: #### P TT, PT #### [facility] [address] [place] [address] Dr. Dustin Hoover ALT [Catalytic activity/Vol] 18 U/L Normal 14-59 [facility] Comment on above: Performed By: #### P TT, PT #### [facility] [address] [address] [address] Dustin Hoover Anion gap [Moles/Vol] 10.8 mmol/L Normal [facility] Comment on above: Performed By: #### P TT, PT #### [facility] [address] [place] [address] Dr. Dustin Hoover AST [Catalytic activity/Vol] 11 U/L Critically low 15-37 [facility] Comment on above: Performed By: #### P TT, PT #### [facility] [address] [place] [address] Dr. Dustin Hoover Bilirubin [Mass/Vol] 0.3 mg/dL Normal 0.2-1.0 [facility] Comment on above: Performed By: #### P TT, PT #### [facility] [address] [place] [address] Dr. Dustin Hoover Calcium [Mass/Vol] 8.5 mg/dL Normal 8.5-10.1 [facility] Comment on above: Performed By: #### P TT, PT #### [facility] [address] [place] [address] Dr. Dustin Hoover Chloride [Moles/Vol] 105 mmol/L Normal 98-107 [facility] Comment on above: Performed By: #### P TT, PT #### [facility] [address] [place] [address] Dr. Dustin Hoover CO2 [Moles/Vol] 26.2 mmol/L Normal 21.0-32.0 [facility] Comment on above: Performed By: #### P TT, PT #### [facility] [address] [place] [address] Dr. Dustin Hoover Creatinine [Mass/Vol] 0.61 mg/dL Normal 0.55-1.02 [facility] Comment on above: Performed By: #### P TT, PT #### [facility] [address] [place] [address] Dr. Dustin Hoover EGFR-AF TAIWANESE >60 Normal >=60 [facility] Comment on above: Performed By: #### P TT, PT #### [facility] [address] [place] [address] Dr. Dustin Hoover EGFR-NON AF TAIWANESE >60 Normal >=60 [facility] Comment on above: Performed By: #### P TT, PT #### [facility] [address] [place] [address] Dr. Dustin Hoover Globulin (S) [Mass/Vol] 3.7 g/dL Normal [facility] Comment on above: Performed By: #### P TT, PT #### [facility] [address] [place] [address] Dr. Dustin Hoover Glucose [Mass/Vol] 99 mg/dL Normal 74-106 [facility] Comment on above: Performed By: #### P TT, PT #### [facility] [address] [place] [address] Dr. Dustin Hoover Potassium [Moles/Vol] 4.0 mmol/L Normal 3.5-5.1 [facility] Comment on above: Performed By: #### P TT, PT #### [facility] [address] [place] [address] Dr. Dustin Hoover Protein [Mass/Vol] 7.0 g/dL Normal 6.4-8.2 [facility] Comment on above: Performed By: #### P TT, PT #### [facility] [address] [place] [address] Dr. Dustin Hoover Sodium [Moles/Vol] 138 mmol/L Normal 136-145 [facility] Comment on above: Performed By: #### P TT, PT #### [facility] [address] [place] [address] Dr. Dustin Hoover Urea nitrogen [Mass/Vol] 8.0 mg/dL Normal 7.0-18.0 [facility] Comment on above: Performed By: #### P TT, PT #### [facility] [address] [place] [address] Dr. Dustin Hoover Urea nitrogen/Creatinine [Mass ratio] 13.1 mg/mg Normal [facility] Comment on above: Performed By: #### P TT, PT #### [facility] [address] [place] [address] Dr. Dustin Hoover PROTIMEon 05-28-2022 INR Coag (PPP) [Relative time] 0.97 {INR} Normal [facility] Comment on above: Performed By: #### P TT, PT #### [facility] [address] [place] [address] Dr. Dustin Hoover INR GUIDELINES SEE BELOW Normal [facility] Comment on above: Result Comment: MARIA DOLORES RED INR: 2.0 - 3.0 CONDITIONS NOT LISTED BELOW 2.5 - 3.5 FOR PROSTHETIC HEART VALVE REPLACEMENT 2.5 - 3.5 RECURRENT THROMBOSIS Performed By: #### P TT, PT #### [facility] [address] [place] [address] Dr. Dustin Hoover PT Coag (PPP) [Time] 10.3 s Normal 9.0-11.6 [facility] Comment on above: Performed By: #### P TT, PT #### [facility] [address] [place] [address] Dr. Dustin Hoover PTTon 05-28-2022 aPTT Coag (Bld) [Time] 26.9 s Normal 22.3-36.2 Th e [facility] Comment on above: Performed By: #### P TT, PT #### [facility] [address] [place] [address] Dr. Dustin Hoover CHLAMYDIA/GONOCOCCUS QUENTIN (SW AB/URINE/PAPon 05-27-2022 Chlamydia trachomatis, QUENTIN Negative Normal Negative [facility] Comment on above: Performed By: #### P TT, PT #### [facility] [address] [place] [address] Dr. Dustin Hoover Neisseria gonorrhoeae, QUENTIN Negative Normal Negative [facility] Comment on above: Performed By: #### P TT, PT #### [facility] [address] [place] [address] Dr. Dustin Hoover DHEA SERUMon 05-27-2022 Dehydroepiandrosterone (DHEA) 382 ng/dL Normal 31-701 [facility] Comment on above: Performed By: #### P TT, PT #### [facility] [address] [place] [address] Dr. Dustin Hoover VAGINITIS/VAGINOSIS DNA PROB Michael 05-27-2022 Catherine species Negative Normal Negative [facility] Comment on above: Performed By: #### V AGINT #### [facility] [address] [place] [address] Dr. Dustin Hoover Gardnerella vaginalis Positive Abnormal Negative [facility] Comment on above: Performed By: #### V AGINT #### [facility] [address] [place] [address] Dr. Dustin Hoover Trichomonas vaginalis Positive Abnormal Negative [facility] Comment on above: Performed By: #### V AGINT #### [facility] [address] [place] [address] Dr. Dustin Hoover DHEA-SULFATEon 05-26-2022 DHEA-Sulfate 48.3 ug/dL Critically low 57.3-279.2 [facility] Comment on above: Performed By: #### D CALLIEUL #### [facility] [address] [place] [address] Dr. Dustin Hoover FSHon 05-26-2022 FSH 14.7 mIU/mL Normal [facility] Comment on above: Result Comment: Adul t Female: Follicular phase 3.5 - 12.5 Ovulation phase 4.7 - 21.5 Luteal phase 1.7 - 7.7 Postmenopausal 25.8 - 134.8 Performed By: #### P TT, PT #### [facility] [address] [address] [address] Dustin Hoover HEPATITIS PANEL, ACUTEon HBsAg Screen Negative Normal Negative [facility] Comment on above: Performed By: #### H EPACUT #### [facility] [address] [place] [address] Dr. Dustin Hoover HCV AB Non-Reactive Normal Non Reactive [facility] Comment on above: Performed By: #### H EPACUT #### [facility] [address] [address] [address] Dustin Hoover Hep A Ab, IgM Negative Normal Negative [facility] Comment on above: Performed By: #### H EPACUT #### [facility] [address] [address] [address] Dustin Hoover Hep B Core Ab, IgM Negative Normal Negative [facility] Comment on above: Performed By: #### H EPACUT #### [facility] [address] [address] [address] Dustin Hoover Interpretation: Comment Normal [facility] Comment on above: Result Comment: Not infected with HCV unless early or acute infection is suspected (which may be delayed in an immunocompromised individual), or other evidence exists to indicate HCV infection. Performed By: #### H EPACUT #### [facility] [address] [place] [address] Dr. Dustin Hoover HIV 1 AND 2 WITH REFLEXon HIV Screen 4th Generation wRfx Non-Reactive Normal Non Reactive [facility] Comment on above: Result Comment: HIV Negative HIV-1/HIV-2 antibodies and HIV-1 p24 antigen were NOT detected. There is no laboratory evidence of HIV infection. Performed By: #### H IV12 #### [facility] [address] [place] [address] Dr. Dustin Hoover LUTEINIZING HORMONE (LH)on 0 05-26-2022 LH 41.0 mIU/mL Normal [facility] Comment on above: Result Comment: Adul t Female: Follicular phase 2.4 - 12.6 Ovulation phase 14.0 - 95.6 Luteal phase 1.0 - 11.4 Postmenopausal 7.7 - 58.5 Performed By: #### L BCLH #### [facility] [address] [place] [address] Dr. Dustin Hoover RPR QUANTon 05-26-2022 Rapid Plasma Reagin, Quant Non-Reactive Normal NonRea<1:1 [facility] Comment on above: Result Comment: Plea se Note: This test does not meet current guidelines for screening and diagnosis of syphilis. This test is intended for following treatment response in patients being treated for syphilis infection. To screen for syphilis infection, a reflex cascade that includes both RPR and a treponema-specific assay should be utilized, such as Treponema pallidum (Syphilis) Screening [place] (202154) or Rapid Plasma Reagin (RPR) Test With Reflex to Quantitative RPR and Confirmatory Treponema pallidum Antibodies (442530). Performed By: #### P TT, PT #### [facility] [address] [place] [address] Dr. Dustin Hoover CBC AUTO DIFFon 05-25-2022 BASO # 0.1 103/ul Normal 0.0-0.1 [facility] Comment on above: Performed By: #### C BC #### [facility] [address] [place] [address] Dr. Dustin Hoover Basophils/100 WBC (Bld) 0.7 % Normal 0.2-2.0 [facility] Comment on above: Performed By: #### C BC #### [facility] [address] [place] [address] Dr. Dustin Hoover EO # 0.5 103/ul Normal 0.0-0.7 [facility] Comment on above: Performed By: #### C BC #### [facility] [address] [place] [address] Dr. Dustin Hoover Eosinophils/100 WBC (Bld) 2.6 % Normal 0.9-7.0 [facility] Comment on above: Performed By: #### C BC #### [facility] [address] [place] [address] Dr. Dustin Hoover Erythrocyte distribution width (RBC) [Ratio] 17.2 % Critically high 11.0-15.0 [facility] Comment on above: Performed By: #### C BC #### [facility] [address] [place] [address] Dr. Dustin Hoover Hematocrit (Bld) [Volume fraction] 39.7 % Normal 36.0-48.0 [facility] Comment on above: Performed By: #### C BC #### [facility] [address] [place] [address] Dr. Dustin Hoover Hemoglobin (Bld) [Mass/Vol] 12.4 g/dL Normal 12.0-16.0 [facility] Comment on above: Performed By: #### C BC #### [facility] [address] [place] [address] Dr. Dustin Hoover IG # 0.13 10e3/ul Critically high 0.00-0.03 [facility] Comment on above: Performed By: #### C BC #### [facility] [address] [place] [address] Dr. Dustin Hoover IG % 0.7 % Critically high 0.0-0.5 [facility] Comment on above: Performed By: #### C BC #### [facility] [address] [place] [address] Dr. Dustin Hoover LYMPH # 4.1 103/ul Critically high 1.2-3.8 [facility] Comment on above: Performed By: #### C BC #### [facility] [address] [place] [address] Dr. Dustin Hoover Lymphocytes/100 WBC (Bld) 22.9 % Normal 20.5-60.0 [facility] Comment on above: Performed By: #### C BC #### [facility] [address] [place] [address] Dr. Dustin Hoover MANUAL DIFF REQ NO Normal [facility] Comment on above: Performed By: #### C BC #### [facility] [address] [place] [address] Dr. Dustin Hoover MCH (RBC) [Entitic mass] 23.8 pg Critically low 26.7-34 .0 [facility] Comment on above: Performed By: #### C BC #### [facility] [address] [place] [address] Dr. Dustin Hoover MCHC (RBC) [Mass/Vol] 31.2 g/dL Normal 29.9-35.2 [facility] Comment on above: Performed By: #### C BC #### [facility] [address] [place] [address] Dr. Dustin Hoover MCV (RBC) [Entitic vol] 76.2 fL Critically low 81.0-99. 0 [facility] Comment on above: Performed By: #### C BC #### [facility] [address] [place] [address] Dr. Dustin Hoover MONO # 1.3 103/ul Critically high 0.3-0.8 [facility] Comment on above: Performed By: #### C BC #### [facility] [address] [place] [address] Dr. Dustin Hoover Monocytes/100 WBC (Bld) 7.0 % Normal 1.7-12.0 [facility] Comment on above: Performed By: #### C BC #### [facility] [address] [place] [address] Dr. Dustin Hoover NEUT # 11.9 103/ul Critically high 1.4-6.5 [facility] Comment on above: Performed By: #### C BC #### [facility] [address] [place] [address] Dr. Dustin Hoover Neutrophils/100 WBC (Bld) 66.1 % Normal 43.0-75.0 [facility] Comment on above: Performed By: #### C BC #### [facility] [address] [place] [address] Dr. Dustin Hoover Platelet mean volume (Bld) [Entitic vol] 10.1 fL Normal 9.5-13.5 [facility] Comment on above: Performed By: #### C BC #### [facility] [address] [place] [address] Dr. Dustin Hoover PLT 499 103/ul Critically high 150-450 [facility] Comment on above: Performed By: #### C BC #### [facility] [address] [place] [address] Dr. Dustin Hoover RBC 5.21 106/ul Normal 4.20-5.40 [facility] Comment on above: Performed By: #### C BC #### [facility] [address] [place] [address] Dr. Dustin Hoover WBC 18.0 103/ul Critically high 4.0-11.0 [facility] Comment on above: Performed By: #### C BC #### [facility] [address] [place] [address] Dr. Dustin Hoover FREE T4on 05-25-2022 Free T4 [Mass/Vol] 0.82 ng/dL Normal 0.76-1.46 [facility] Comment on above: Performed By: #### P TT, PT #### [facility] [address] [place] [address] Dr. Dustin Hoover GLYCOHEMOGLOBIN A1Con 2022 ADA RECOMMENDATION SEE BELOW Normal [facility] Comment on above: Result Comment: ADA RECOMMENDED LIMIT 4.0 - 6.0 ADA THERAPEUTIC TARGET < 7.0 ACTION SUGGESTED > 7.0 Performed By: #### A 1C #### [facility] [address] [place] [address] Dr. Dustin Hoover Glucose [Mass/Vol] 108 mg/dL Normal [facility] Comment on above: Performed By: #### A 1C #### [facility] [address] [place] [address] Dr. Dustin Hoover HbA1c (Bld) [Mass fraction] 5.4 % Normal 4.5-6.2 [facility] Comment on above: Performed By: #### A 1C #### [facility] [address] [place] [address] Dr. Dustin Hoover PREG QUANT HCGon 05-25-2022 HCG QUANT 1 mIU/mL Normal [facility] Comment on above: Performed By: #### P TT, PT #### [facility] [address] [place] [address] Dr. Dustin Hoover HCG RANGE SEE BELOW Normal [facility] Comment on above: Result Comment: 5-50 0.2-1 WEEK 50-500 1-2 WEEKS 100-5,000 2-3 WEEKS 500-10,000 3-4 WEEKS 1,000-50,000 4-5 WEEKS 10,000-100,000 5-6 WEEKS 15,000-200,000 6-8 WEEKS 10,000-100,000 2-3 MONTHS Performed By: #### P TT, PT #### [facility] [address] [place] [address] Dr. Dustin Hoover TSHon 05-25-2022 TSH 2.768 uIU/mL Normal 0.358-3.740 [facility] Comment on above: Performed By: #### P TT, PT #### [facility] [address] [place] [address] Dr. Dustin Hoover Vital Signs Date Time Vital Sign Value Performing Clinician Facility 06-25-2023 15:14-0400 Body temperature 98.1 [degF] [facility] 06-25-2023 15:14-0400 Diastolic blood pressure 88 mm[Hg] [facility] 06-25-2023 15:14-0400 Heart rate 105 /min [facility] 06-25-2023 15:14-0400 Respiratory rate 18 /min [facility] 06-25-2023 15:14-0400 SaO2% (BldA) [Mass fraction] 95 % [facility] 06-25-2023 15:14-0400 Systolic blood pressure 119 mm[Hg] [facility] 06-23-2023 14:22-0400 Body height 157.48 cm [facility] 06-22-2023 22:00-0400 Body weight 147.41 kg [facility] 06-03-2023 21:42-0400 Body mass index (BMI) [Ratio] 59.55 kg/m2 Butch Furlong DO Work Phone: [facility] [employer] [facility] 06-03-2023 21:42-0400 Body weight 147.69 kg Butch Furlong DO Work Phone: [facility] [employer] [facility] 05-28-2023 18:56-0400 Body mass index (BMI) [Ratio] 61.16 kg/m2 Butch Furlong DO Work Phone: [facility] [employer] [facility] 05-28-2023 18:56-0400 Body weight 151.68 kg Butch Furlong DO Work Phone: [facility] [employer] 05-28-2023 18:56-0400 Diastolic blood pressure 68 mm[Hg] Butch Furlong [facility] 05-28-2023 18:56-0400 Heart rate 71 /min Butch Furlong DO [facility] 05-28-2023 18:56-0400 Systolic blood pressure 104 mm[Hg] Butch Furlong DO Work Phone: [facility] [employer] [facility] 05-18-2023 19:08-0400 Body mass index (BMI) [Ratio] 60.36 kg/m2 Megan Cash [employer] Work Phone: [facility] 05-18-2023 19:08-0400 Body temperature 98.01 [degF] Megan Cash [employer] [facility] 05-18-2023 19:08-0400 Body weight 149.69 kg Megan Cash [employer] Work Phone: [facility] [employer] [facility] 05-18-2023 19:08-0400 Diastolic blood pressure 68 mm[Hg] Megan JEWELL Work Phone: [facility] [employer] 05-18-2023 19:08-0400 Heart rate 71 /min Megan JEWELL Work Phone: [facility] [employer] 05-18-2023 19:08-0400 Respiratory rate 18 /min Megan JEWELL Work Phone: [facility] [employer] 05-18-2023 19:08-0400 SaO2% (BldA) [Mass fraction] 98 % Megan JEWELL Work Phone: [facility] [employer] 05-18-2023 19:08-0400 Systolic blood pressure 104 mm[Hg] Megan JEWELL Work Phone: [facility] [employer] 05-14-2023 18:39-0500 Body mass index (BMI) [Ratio] 57.5 kg/m2 Butch Furlong DO [facility] 05-14-2023 18:39-0500 Body temperature 97.59 [degF] Butch Furlong DO [facility] 05-14-2023 18:39-0500 Body weight 142.61 kg Butch Furlong DO Work Phone: [facility] [employer] 05-14-2023 18:39-0500 Diastolic blood pressure 68 mm[Hg] Butch Furlong DO [facility] 05-14-2023 18:39-0500 Heart rate 90 /min Butch Furlong DO Work Phone: [facility] [employer] 05-14-2023 18:39-0500 Respiratory rate 18 /min Butch Furlong DO Work [facility] 05-14-2023 18:39-0500 SaO2% (BldA) [Mass fraction] 98 % Butch Furlong DO Work Phone: [employer] 05-14-2023 18:39-0500 Systolic blood pressure 110 mm[Hg] Butch Furlong DO [facility] 04-30-2023 17:38-0500 Body height 157.5 cm Butch Furlong DO Work [facility]: [facility] 04-30-2023 17:38-0500 Body mass index (BMI) [Ratio] 56.53 kg/m2 Butch Furlong DO [facility] 04-30-2023 17:38-0500 Body temperature 97.81 [degF] Butch Furlong DO Work Phone: [facility] 04-30-2023 17:38-0500 Body weight 140.2 kg Butch Furlong DO Work Phone: [facility] 04-30-2023 17:38-0500 Diastolic blood pressure 62 mm[Hg] Butch Furlong DO [facility] Phone: [facility] 04-30-2023 17:38-0500 Heart rate 106 /min Butch Furlong DO Work Phone: [facility] 04-30-2023 17:38-0500 Respiratory rate 20 /min Butch Furlong DO Work Phone: [facility] 04-30-2023 17:38-0500 SaO2% (BldA) [Mass fraction] 91 % Butch Furlong DO Work Phone: [facility] 04-30-2023 17:38-0500 Systolic blood pressure 99 mm[Hg] Butch Furlong DO Work Phone: [facility] Encounters Encounter Date Encounter Type Care Provider Facility Start: 10-22-2023 End: 10-22-2023 ambulatory NON STAFF [facility] Work Phone: Start: 10-22-2023 End: 10-22-2023 Departed Referred [facility] Start: 09-30-2023 End: 09-30-2023 Patient encounter procedure Edward Arita DO Work Phone: Orthopaedics Comment on above: Primary osteoarthrit is of both hips (Primary Dx) Start: 09-22-2023 End: 09-22-2023 ambulatory MAZIN ROSITA Not Available Start: 09-20-2023 End: 09-20-2023 ambulatory MAZIN ROSITA Not Available Start: 09-03-2023 End: 09-03-2023 ambulatory Jluy Morrison RT(R) Radiology Comment on above: Radiology XR Start: 09-03-2023 End: 09-03-2023 Patient encounter procedure July Morrison RT(R) Radiology Comment on above: Primary osteoarthrit is of both hips (Primary Dx); Trochanteric bursitis of both hips; Pain in left hip; Pain in right hip Start: 08-30-2023 End: 08-30-2023 ambulatory MAZIN ROSITA Not Available Start: 07-29-2023 End: 07-29-2023 ambulatory TRAV VALDOVINOS Not Available Start: 07-08-2023 End: 07-08-2023 ambulatory [facility] Start: 2023 End: 2023 ambulatory TRAV VALDOVINOS Not Available Start: 06-23-2023 Non-patient / Non-visit [facility] Work Phone: Start: 06-22-2023 End: 06-25-2023 Evaluation and management of inpatient [facility] Work Phone: Start: 06-22-2023 End: 06-22-2023 Emergency department patient visit BUTCH OLIVA [facility] Start: 06-22-2023 ambulatory Joseph Mcneil acility:[facility] Start: 06-03-2023 ambulatory Butch robins DO [facility]: [facility] Comment on above: Pedal edema (Primary Dx); Intertrigo; Morbid obesity ([facility]) Start: 05-28-2023 ambulatory Butch robins DO Work Phone: [facility] Comment on above: Bilateral primary os teoarthritis of hip (Primary Dx); Muscle weakness (generalized); Other abnormalities of gait and mobility; Spinal stenosis of lumbar region, unspecified whether neurogenic claudication present Start: 05-18-2023 Continuing Care Megan J Yuri tiffaniyunior [employer] Work Phone: [facility] Comment on above: Spinal stenosis of l umbar region, unspecified whether neurogenic claudication present (Primary Dx); Bipolar affective disorder, current episode mixed, current episode severity unspecified ([facility]); Primary osteoarthritis of both hips; Schizophrenic disorder ([facility]); Class 3 severe obesity due to excess calories with serious comorbidity and body mass index (BMI) of 60.0 to 69.9 in adult ([facility]); Full code status Start: 05-14-2023 Continuing Care Butch robins DO Work Phone: [facility] Comment on above: Spinal stenosis of l umbar region, unspecified whether neurogenic claudication present (Primary Dx); Bilateral primary osteoarthritis of hip; Muscle weakness (generalized); Other abnormalities of gait and mobility; Bipolar affective disorder, current episode mixed, current episode severity unspecified (CMS-HCC); Schizophrenic disorder ([facility]) Start: 04-30-2023 Continuing Care Butch robins DO Work Phone: [facility] Comment on above: Spinal stenosis of l umbar region, unspecified whether neurogenic claudication present (Primary Dx); Syphilis (acquired); Bipolar affective disorder, current episode mixed, current episode severity unspecified ([facility]); Anxiety; Primary osteoarthritis of both hips; TB lung, latent; Schizophrenic disorder (CMS-HCC); Class 3 severe obesity due to excess calories without serious comorbidity with body mass index (BMI) of 50.0 to 59.9 in adult ([facility]) Start: 04-26-2023 Registered [facility] Start: 07-23-2022 ambulatory DEMETRIA SHAMMO Facility:H 1 Start: 06-30-2022 ambulatory DEMETRIA SHAMMO Facility:[facility] 1 Start: 06-16-2022 End: 06-17-2022 ambulatory DEMETRIA SHAMMO Facility:[facility] Start: 06-09-2022 ambulatory DEMETRIA SHAMMO Facility:[facility] 1 Start: 06-02-[address] MAZIN MORENO . Facili ty:H1 Start: 05-29-2022 Encounter for genera l adult medical examination without abnormal findings DEMETRIA SHAMMO [facility] Start: 05-28-2022 End: 05-28-[address] MAZIN MORENO . Facility:[facility]1 Start: 05-28-2022 End: 05-29-2022 ambulatory [...] Arthrocentesis aspir &/inj major jt/bursa w/us Edward Arita DO Work Phone: Start: 09-30-2023 End: 09-30-2023 Arthrocentesis aspir&/inj major jt/bursa w/us Edward Lee Arita DO Work Phone: Start: 09-03-2023 Arthrocentesis aspir &/inj major jt/bursa w/o us Tang Sloan PA-C Work Phone: Plan of Treatment Date Care Activity Detail Author Start: 05-28-2032 DTaP,Tdap and Td Vaccines (2 - Td or Tdap) DTaP,Tdap and Td Vaccines (2 - Td or Tdap) [facility] Start: 05-28-2032 Urine microalbumin profile DTaP,Tdap,Td Vaccine (2 - Td or Tdap) [facility] Start: 03-09-2026 Screening for malign ant neoplasm of cervix Cervical Cancer Screening [facility] Start: 05-27-2024 Adult BMI Screening Adult BMI Screen ing [facility] Start: 05-23-2024 Tobacco Screening Tobacco Screening [facility] Start: 05-20-2024 Tobacco Screening Tobacco Screening [facility] Start: 05-17-2024 Adult BMI Screening Adult BMI Screen ing [facility] Start: 04-30-2024 Adult BMI Screening Adult BMI Screen ing [facility] Start: 04-30-2024 Tobacco Screening Tobacco Screening [facility] Start: 01-31-2024 Tobacco Screening Tobacco Screening [facility] Start: 11-07-2023 Influenza vaccination [facility] Start: 10-22-2023 [facility] Start: 09-30-2023 End: 09-30-2023 Patient encounter procedure 09/30/2023 9:15 AM EDT Office Visit Orthopaedics [address] [place] [address] Edward Arita, [address] [place] [address] Bilateral USGI Hip injections Orthopaedics Comment on above: Bilateral USGI Hip i njections Start: 06-25-2023 [facility] Start: 06-24-2023 Referral to toy painter [facility] Start: 06-24-2023 Referral to clinical office runner [facility] Start: 06-22-2023 Hospital admission [facility] Start: 06-22-2023 [facility] Start: 03-08-2023 Behavioral Health Screening Behavioral Health Screening [facility] Start: 11-06-2022 Covid-19 Vaccine ( season) Covid-19 Vaccine ( season) [facility] Start: 11-06-2022 Influenza vaccination Influenza Vacc ine [facility] Start: 2019 Screening for malign ant neoplasm of breast Mammogram Screening [facility] Start: 06-28-2000 Screening for malign ant neoplasm of cervix Pap Smear [facility] Start: 06-28-1998 Hepatitis B Vaccine (1 of 3 - 19+ 3-dose series) Hepatitis B Vaccine (1 of 3 - 19+ 3-dose series) [facility] Start: 06-28-1997 Adult BMI Follow Up Plan Adult BMI Follow Up Plan [facility] Start: 06-28-1997 Anxiety Screening Anxiety Screening [facility] Start: 06-28-1997 Depression Screening Depression Scre ening [facility] Start: 06-28-1997 HIV screening HIV Screening [facility] Start: 1991 Depression Screening Depression Scre ening [facility] Start: 06-28-1985 Pneumococcal vaccination Pneumococcal Vaccine (1 of 2 - PCV) [facility] Start: 1979 Tobacco Counseling Tobacco Counselin g [facility] Patient Education Depression, Ad ult (DC) [facility] DC Instructions [facility] Work Phone: Patient referral [facility] Work Phone: Immunizations Immunization Date Immunization Notes Care Provider Fa natalie 05-28-2022 tetanus toxoid, redu radha diphtheria toxoid, and acellular pertussis vaccine, adsorbed Butch Oliva DO Work Phone: [facility] Payers Date Payer Category Payer Private Health Insurance HU[employer]NA HU[employer] MEDICAID [facility] [id number] 2023-Present [address] [address] [place] [address] Medicaid [id number] 2023 Self-pay 2022 Medicaid [facility] MEDICAID [id number] 2022-Present [phone] [address] [place] [address] [id number] 2006 Medicaid [id number] 1979 Unknown [id number] 2.16.840.1.409356.3.579.2.5 93 1979 Unknown [id number] 2.16.840.1.974555.3.579.2.5 93 1979 Unknown [id number] 2.16.840.1.502061.3.579.2.5 93 1979 Unknown [id number] 2.16.840.1.930125.3.579.2.5 93 1979 Unknown [id number] 2.16.840.1.741148.3.579.2.5 93 1979 Unknown [id number] 2.16.840.1.305928.3.579.2.5 93 1979 Unknown [id number] 2.16.840.1.788923.3.579.2.5 93 1979 Unknown [id number] 2.16.840.1.386073.3.579.2.5 93 1979 Unknown [id number] 2.16.840.1.184666.3.579.2.5 93 1979 Unknown [id number] 2.16.840.1.217712.3.579.2.5 93 1979 Unknown [id number] 2.16.840.1.868045.3.579.2.5 93 1979 Unknown [id number] 2.16.840.1.012613.3.579.2.1 286 1979 Unknown [id number] 2.16.840.1.427296.3.579.2.1 286 1979 Unknown [id number] 2.16.840.1.246570.3.579.2.1 259 1979 Unknown [id number] 2.16.840.1.980848.3.579.2.1 259 1979 Unknown [id number] 2.16.840.1.795488.3.579.2.1 259 1979 Unknown [id number] 2.16.840.1.665224.3.579.2.1 259 1979 Unknown [id number] 2.16.840.1.980212.3.579.2.1 259 1979 Unknown [id number] 2.16.840.1.186788.3.579.2.1 259 Unknown [id number] 2.16.840.1.244533.3.579.2.5 31 Unknown [id number] 2.16.840.1.969425.3.579.2.5 31 Unknown [id number] 2.16.840.1.900169.3.579.2.5 31 Social History Date Type Detail Facility Start: 05-17-2007 End: 04-30-2023 Tobacco smoking status NHIS Smokes tobacco daily [facility] Start: 03-08-1989 History of tobacco use Cigarette Smoker [facility] Start: 04-30-2023 End: 09-03-2023 Cigarettes smoked current (pack per day) - Reported 0.3 [facility] History of tobacco use Passive smoker [facility] Start: 04-30-2023 Tobacco use and exposure Smokeless tobacco non-user [facility] Start: 04-30-2023 End: 05-24-2023 Alcohol intake Ex-drinker (finding) [facility] Start: 04-30-2023 End: 09-03-2023 Tobacco use panel [facility] In the past 12 month s, has lack of transportation kept you from medical appointments or from getting medications? Yes [facility] Start: 04-30-2023 Tobacco Comment Started smoking at 9 years of age [facility] Start: 1980 Sex Assigned At Not on file [facility] Start: 06-24-2023 Tobacco smoking status NHIS Smoker (finding) [facility] Start: 1980 Sex Assigned At Female [facility] Start: 07-07-2010 Alcohol intake Current non-drinker of alcohol (finding) [facility] Tobacco smoking stat us NHIS Tobacco smoking consumption unknown [facility] Goals Date Patient Goal Desired Activity /State Functional Status Date Assessment Result Facility 06-25-2023 Functional status Patient at [facility] Work Phone: Mental Status Date Assessment Result Facility 06-25-2023 Cognitive function Cognitive Sta tus Patient at [facility] Work Phone: Clinical Notes 05-21-2022 to 09-30-2023 Edward Arita DO - 09/30/2023 11:42 AM EDTPatient InstructionsTang Sloan PA-C - 09/03/2023 9:00 AM EDTRaJuly luna RT(R) - 09/03/2023 8:51 AM EDT Note Date & Type Note Facility 09-30-2023 History of Presen t illness Narrative Associated Order(s): Large Joint Arthro/Inj: bilateral hip joints Post-Procedure Diagnose(s): Primary osteoarthritis of both hips Patient presents for a bilateral hips injection. Large Joint Arthro/Inj: bilateral hip joints Informed Consent Consent Obtained: Verbal [place] Protocol A moment to CARE was completed. [...] Arita DO 09/30/2023 documented in this encounter [facility] 09-03-2023 Instructions Tang Sloan PA-C - 09/03/2023 [...] MUCH MORE DANGEROUS. documented in this encounter [facility] 09-03-2023 Note HNO ID: [id number] Author: TANG SLOAN PA-C Service: ? Author Type: Physician Hvac Services Professional Type: Progress Notes Filed: 09/07/2023 16:29 Note [...] She reports that she moved here from [place] and moved in with her sisters in the last few years but moved into a assisted in the last year when she could not get around or do self-care. She is now living in a assisted facility. Has significant pain in her back [...] gabapentin and methadone all given at the assisted without great pain control. She has done physical therapy as well. She has schizoaffective disorder but otherwise is fairly healthy. She notes that her weight was 268 when she entered the assisted but is now 320. Pain level is [...] Significant tenderness o (more content not included)... [facility] 09-03-2023 History of Presen t illness Narrative [...] She reports that she moved here from [place] and moved in with her sisters in the last few years but moved into a assisted in the last year when she could not get around or do self-care. She is now living in a assisted facility. Has significant pain in her back [...] gabapentin and methadone all given at the assisted without great pain control. She has done physical therapy as well. She has schizoaffective disorder but otherwise is fairly healthy. She notes that her weight was 268 when she entered the assisted but is now 320. Pain level is [...] been 268 pounds when she entered the assisted and is now 320. She needs to [...] trochanteric bursa Informed Consent Consent Obtained: Verbal [place] Protocol A moment to CARE was completed. [...] of Care Visit completed when applicable Third democrat verified by Monae Vaca MA. FOLLOW-UP: Return for appt for bilat hip inj with Ultrasound. SIGNATURE: Tang Sloan PA-C PATIENT NAME: Jennifer Mendes DATE: September 03, 2023 TIME: 9:09 AM documented in this encounter [facility] 09-03-2023 Note HNO ID: [id number] Author: JULY MORRISON RT(R) Service: ? Author Type: Technologist Type: Progress [...] PATIENT PRESENTS WITH AN IMPLANTABLE OR ATTACHED AUTOMOTIVE SALES ASSOCIATE: No RADIOLOGY DEPARTMENT: General X-ray: Exam(s) Completed: Pelvis X-Ray: Pelvis with Hip Bilateral PERIPHERAL IV DATA: Not applicable SIGNED BY: RT Devi(R) September 03, 2023 8:51 AM [facility] 09-03-2023 History of Presen t illness Narrative [...] PATIENT PRESENTS WITH AN IMPLANTABLE OR ATTACHED AUTOMOTIVE SALES ASSOCIATE: No RADIOLOGY DEPARTMENT: General X-ray: Exam(s) Completed: Pelvis X-Ray: Pelvis with Hip Bilateral PERIPHERAL IV DATA: Not applicable SIGNED BY: RT Devi(R) September 03, 2023 8:51 AM documented in this encounter [facility] 06-25-2023 Discharge summary Note Date/Time June 25, 2023 7:11am [facility] [address] [place] [address] Discharge Summary Signed Patient: Jennifer Mendes MR#: [id number] : 1980 Acct:[id number] Age/Sex: 42 / F Adm Date: 4 Loc: 1S Room: [address] [place] [address]: Joseph Tello MD Copies to: [...] unit milieu. She has been working with nurse outreach case manager on her aftercare she agreed [...] 99 Discharge Plan Discharge Plan Patient Disposition: correction [place] Care/Resident Activity: With Assist Diet: Regular Additional Instructions: Important Contact Information You can call [facility] at [phone] any time day or night if you have emergent questions or question regarding discharge instructions. If at any time you are feeling an increase inyour psychiatric symptoms, call your physician or behavioral healthcare provider. If any time you have thoughts of harming yourself or others contact one of the following: Call 98-8 (available 28/09) Crisis Text Line (available 28/09) text 4HOPE to [phone] [facility] Hope Line (available 8 a.m. Midnight) call [phone] ([phone]) Prescriptions: Continued aripiprazole 20 mg tablet 20 [...] signed by Joseph Tello MD> 06/25/23 0711 [facility] Work Phone: 1(696) 726-580904-19-2024 Consult note Author Linsey Pradhan [facility] June 24, 2023 11:55pm Note Date/Time June 24, 2023 12: 47pm [facility] [address] [place] [address] Hospitalist Consult Note Signed Patient: Jennifer Mendes MR#: [id number] : 1980 Acct:[id number] Age/Sex: 42 / F Adm Date: 4 Loc: Room: [address] [place] [address] Type: ADM IN Attending Dr: Joseph Tello MD Copies to: NON STAFF MD Anita Hull, [employer] Linsey Pradhan MD~ HPI DATE OF CONSULTATION: [...] negative unless noted in the HPI below [facility] Source[facility] Old Records Reviewed Social History [...] <Electronically signed by Linsey Pradhan MD> 06/24/23 7025 [facility] Work Phone: 1(333) 292-893604-18-2024 Progress note Author Joseph martinez [facility] June 24, 2023 6:40am Note Date/Time June 24, 2023 6:4 0am [facility] [address] [place] [address] Psychiatry Progress Note Signed Patient: Jennifer Mendes MR#: [id number] : 1980 Acct:[id number] Age/Sex: 42 / F Adm Date: 4 Loc: Room: [address] [place] [address] Type : ADM IN Attending Dr: Joseph [...] signed by Joseph Tello MD> 06/24/23 0640 [facility] Work Phone: 1(104) 395-681804-17-2024 History and physical note Author Joseph martinez [facility] June 23, 2023 9:03am Note Date/Time June 23, 2023 8:5 8am [facility] [address] [place] [address] Psychiatry H&P Signed Patient: Jennifer Mendes MR#: [id number] : 1980 Acct:[id number] Age/Sex: 42 / F Adm Date: 4 Loc: Room: [address] [place] [address] Type: ADM IN Attending Dr: Joseph Tello [...] signed by Joseph Tello MD> 06/23/23 0903 [facility] Work Phone: 1(585) 588-760103-28-2024 History of Present illness Narrative* Butch Oliva, DO - 06/03/2023 9:42 PM EDT Patient Name: Jennifer Mendes Date of : 1980 Date of Service: 06/03/2023 Facility: [facility] Type of Visit: Skilled Visit Subjective [...] BY: Butch Oliva DO documented [facility]-2024 History of Present illness Narrative* Butch Oliva DO - 05/28/2023 11:59 PM EDT Patient Name: Jennifer Mendes Date of : 1980 Date of Service: 05/28/2023 Facility: [facility] Type of Visit: Skilled Visit Subjective [...] BY: Butch Oliva DO documented in this encounterUC Health03-12-2024 History of Present illness Narrative* Megan Cash APRN-ORACLE ERP ARCHITECT - 05/18/2023 11:59 PM EDT Images from the original note were not included. Patient Name: Jennifer Mendes Date of : 1980 Date of Service: 05/18/2023 Facility: [facility] Type of Visit: Skilled Visit Subjective Jennifer Mendes is a 42 y.o. female seen today at snf facility for Chief Complaint Patient presents with Intermediate . Is attending physical therapy. States sometimes [...] Anemia Anxiety Arthritis Back pain Bipolar disorder ([facility]) Depression Latent tuberculosis infection Obesity Pneumonia Substance abuse ([facility]) Past Surgical History: Procedure Laterality Date FRACTURE [...] current episode mixed, current episode severity unspecified ([facility]) 3. Primary osteoarthritis of both hips 4. Schizophrenic disorder ([facility]) 5. Class 3 severe obesity due to excess calories with serious comorbidity and body mass index (BMI)of 60.0 to 69.9 in adult ([facility]) 6. Full code status Spinal stenosis of lumbar region Awaiting Medicaid approval to pursue pain management. Referral done, sent to [facility]. -Pain controlled with Oxycodone, [...] ELECTRONICALLY SIGNED BY: BEST Napoles APRN-CNP 05/24/23 1758 documented in this encounterUC Health03-08-2024 History of Present illness Narrative* Butch Oliva, - 05/14/2023 6:37 PM EST Patient Name: Jennifer Mendes Date of : 1980 Date of Service: 05/14/2023 Facility: [facility] Type of Visit: Skilled Visit Subjective [...] current episode mixed, current episode severity unspecified ([facility]) 6. Schizophrenic disorder (CMS-HCC) Medically stable. Continue therapy to reach MMI. Await approval for medicaid so she can go to pain management. Other medications reviewed and are medically necessary. ELECTRONICALLY SIGNED BY: Butch Oliva DO documented in this encounterUC Health02-23-2024 History of Present illness Narrative* Butch Oliva DO - 04/30/2023 5:37 PM EST Patient Name: Jennifer Mendes Date of : 1980 Date of Service: 04/30/2023 Facility: [facility] Type of Visit: Admission H&P Subjective Jennifer Mendes is a 42 y.o. female seen today at snf facility for admission H&P. jennifer presents to [facility] from the [facility] where she was treated for intractable [...] scheduled to see a neurosurgeon up in [place] but then her insurance lapsed and the [...] Abdominal wall cellulitis Anemia Anxiety Bipolar disorder ([facility]) Depression Latent tuberculosis infection Pneumonia Past Surgical [...] current episode mixed, current episode severity unspecified ([facility]) 4. Anxiety 5. Primary osteoarthritis of both hips 6. TB lung, latent 7. Schizophrenic disorder ([facility]) 8. Class 3 severe obesity due to excess calories without serious comorbidity with body mass index (BMI) of 50.0 to 59.9 in adult ([facility]) Admit to [facility] for therapy. She is motivated to improve. She will need pain management and maybe neurosurgery. Fair to good rehab potential. Full code. Continue medications from the hospital. She was treated for TB with INH per pt. Continue doxycycline for syphilis. ELECTRONICALLY SIGNED BY: Butch Oliva DO documented in this encounterUC Health04-11-2023 NoteCONSULTATION CONSULTATION DATE: 06/16/2022 TO: TRENTON Johnston [...] our patients to inform us about any rllk-gak-ygqnama medications or herbal remedies/nutritional supplements/alternative remedies. 2. [...] treatment options with their primary care provider.[facility] HospitalUwanbjsi07-03-2313 NotePROCEDURE: XR HIP LT 2 3V W PELVIS HISTORY: Pain ; left hip pain after falling COMPARISON: None. FINDINGS: BONES:Complete loss of the hip joint spaces bilaterally with subchondral sclerosis, [id number]-[id number] articulation, and remodeling of the femoral heads and acetabulum. SOFT TISSUES:No visible soft tissue swelling. EFFUSION:None visible. OTHER: Negative. IMPRESSION: 1. No acute bone abnormality. 2. Advanced degenerative changes of hip joints bilaterally. Electronically authenticated by: JEAN CARLOS MEDINA Date: 2022-05-21 11:47[facility]* Diagnosis Spinal stenosis of lumbar region, unspecified whether neurogenic claudication present- Primary Syphilis (acquired) Unspecified syphilis Bipolar affective disorder, current episode mixed, current episode severity unspecified ([facility]) Anxiety Anxiety state, unspecified Primary osteoarthritis of both hips TB lung, latent Schizophrenic disorder ([facility]) Unspecified schizophrenia, unspecified condition Class 3 severe obesity due to excess calories without serious comorbidity with body mass index (BMI) of 50.0 to 59.9 in adult ([facility]) documented in this encounter [facility]* Diagnosis Spinal stenosis of lumbar region, unspecified whether neurogenic claudication present- Primary Bilateral primary osteoarthritis of hip Muscle weakness (generalized) Other abnormalities of gait and mobility Bipolar affective disorder, current episode mixed, current episode severity unspecified ([facility]) Schizophrenic disorder ([facility]) Unspecified schizophrenia, unspecified condition documented in this encounter [facility]* Diagnosis Spinal stenosis of lumbar region, unspecified whether neurogenic claudication present- Primary Bipolar affective disorder, current episode mixed, current episode severity unspecified ([facility]) Primary osteoarthritis of both hips Schizophrenic disorder ([facility]) Unspecified schizophrenia, unspecified condition Class 3 severe obesity due to excess calories with serious comorbidity and body mass index (BMI) of 60.0 to 69.9 in adult ([facility]) Full code status documented in this encounter [facility] note* Diagnosis Bilateral primary osteoarthritis of hip- Primary Muscle weakness (generalized) Other abnormalities of gait and mobility Spinal stenosis of lumbar region, unspecified whether neurogenic claudication present documented in this encounter [facility] note* Diagnosis Pedal edema- Primary Edema Intertrigo Other specified erythematous condition Morbid obesity ([facility]) Morbid obesity documented in this encounter [facility]* Diagnosis Onset Date Resolution Status Chronic pain acute Generalized anxiety disorder acute Major depressive disorder, recurrent, moderate acute [facility] Work Phone: Evaluation note* Diagnosis Primary osteoarthritis [...] region and thigh [facility]* Diagnosis Primary osteoarthritis of both hips- Primary Primary localized osteoarthrosis, pelvic region and thigh documented in this encounter [facility]Eval[facility] noteNo assessment information availableOhio [facility] Work Phone: InstructionsNot on filedocumented in this encounter [facility] SystemInstructions* Attachments The following attachments cannot be sent through Care Everywhere. * Bipolar disorder (Hungarian) documented in this encounterProMount St. [facility] SystemInstructionsNot on file documented in this encounterProMount St. [facility] SystemInstructionsNot on file documented in this encounterProMount St. [facility] Summary Purpose Family History No [...] anxiety disorder Major depressive disorder, recurrent, moderate Chief Complaint Unknown Reason for Referral Specialty Diagnoses / Procedures Referred By Nazario sanches Referred To Contact [facility] Diagnoses Primary osteoarthritis of both hips Trochanteric bursitis of both hips Procedures CONSULT TO PHYSICAL THERAPY PHYSICAL THERAPY EVALUATION HIGH COMPLEX 45 MINS Tang Sloan PA-C [address] [place] [address] [facility] [address] [place] [id number] Referral ID Status Reason Start Date Expiration Date Visits Requested Visits Authorized [id number] Pending Review Auto-Generat ed Referral 09/03/2023 09/02/2024 1 1 Specialty Diagnoses / Procedures Referred By Nazario sanches Referred To Contact XR IMAGING Diagnoses Pain in left hip Pain in right hip Procedures XR HIP BILATERAL 5V PEL/AP/LAT EACH HIP RADEX HIPS BILATERAL WITH PELVIS MINIMUM 5 VIEWS Tang Sloan PA-C [address] [place] [address] [place] [address] Referral ID Status Reason Start Date Expiration Date V isits Requested Visits Authorized [id number] Closed Auto-Generate d Referral 08/30/2023 09/28/2024 1 1 Additional Source Comments INFORMATION SOURCE (unrecogn ized section and content) DATE CREATED AUTHOR 07/08/2022 [facility] DATE CREATED AUTHOR AUTHOR'S ORGANIZ ATION 07/09/2023 [facility] DATE CREATED AUTHOR AUTHOR'S ORGANIZ ATION 09/09/2023 [facility] DATE CREATED AUTHOR AUTHOR'S ORGANIZ ATION 09/24/2023 [facility] DATE CREATED AUTHOR AUTHOR'S ORGANIZ ATION 10/27/2023 [facility] Care Teams (unrecognized sec tion and content) Team Status: Active Member Role Status Dates NON STAFF Primary Care Provider Active Team Status: Inactive Member Role Status Dates NON STAFF Primary Care Provider Active Start: October 22, 2023 End: October 22, 2023 Mazin Moreno DO Attending Provider Active Start : October 22, 2023 End: October 22, 2023 Pleating Supervisor Relationship Specialty Start Date End Date No Pcp, [place] [address] PCP - General Family Medicine 10/30/22 Pleating Supervisor Relationship Specialty Start Date End Date No Pcp, [place] [address] PCP - General Family Medicine 10/30/22 Pleating Supervisor Relationship Specialty Start Date End Date No Pcp, [place] [address] PCP - General Family Medicine 10/30/22 Pleating Supervisor Relationship Specialty Start Date End Date No Pcp, [place] [address] PCP - General Family Medicine 10/30/22 Pleating Supervisor Relationship Specialty Start Date End Date No Pcp, [place] [address] PCP - General Family Medicine 10/30/22 Team [...] 2023 End: June 25, 2023 Angelica Cheney RN Other Provider Active Start: Albin siegel 2023 End: June 25, 2023 Tawanna Conley [...] (unrecogniz ed section and content) Reason Comments Intermediate Reason Comments Radiology XR Reason Comments New Pain Reason Comments Injections Hip Pain Specialty Diagnoses / Procedures Referred By Nazario t Referred To Contact Orthopedics / ORTHOPAEDIC SURGERY Diagnoses Bilateral USGI Hip injections Procedures SERENA INJECT 1 Tang Sloan PA-C [address] [place] [address] Edward Arita DO [address] [place] [address] Referral ID Status Reason Start Date Expiration Date V isits Requested Visits Authorized [id number] Closed Financial Clearance Not Required 09/30/2023 10/31/2023 1 1 Source Comments (unrecognize d section and content) In the event this informatio n is protected by the Federal Confidentiality of Alcohol and Drug Abuse Patient Records regulations: The Federal rules restrict any use of the information to criminally investigate or prosecute any alcohol or drug abuse patient.[facility] Hospital[facility] the event this information is protected by the Federal Confidentiality of Alcohol and Drug Abuse Patient Records regulations: The Federal rules restrict any use of the information to criminally investigate or prosecute any alcohol or drug abuse patient.[facility] HospitalIn the event this information is protected by the Federal Confidentiality of Alcohol and Drug Abuse Patient Records regulations: The Federal rules restrict any use of the information to criminally investigate or prosecute any alcohol or drug abuse patient.[facility] Goals (unrecognized section and content) Goals may be documented in a n alternate section FOR RECORDS PERTAINING TO PATIENTS WHO ARE [...] BE BASED ON THE PRIMARY CLINICAL RECORDS. [facility] [employer] [facility]. provides no warranty or guarantee of the accuracy or completeness of information in this document.
[2023-11-06 12:08] LABS: Rapid Plasma Reagin, Quant Non Reactive titer (NonRea<1:1)
== END 2023-11-05 10:36 | disposition home or self-care (01) ==
LOC: LAB 10:37
PROVIDERS: PCP Family Medicine; Visit Provider Physician Assistant
DX: Z86.19 Personal history of other infectious and parasitic diseases (principal)
CPT/HCPCS: 36415; 86592

== ENCOUNTER 2023-12-07 13:43 | Outpatient (OUT) | payer MEDICAID, SELFPAY ==
--- NOTE | 2023-12-07 13:46 | CT_ITS ---
[address] [address] Patient Name: DALLAS GARRISON MRN: [id number] date: 1980 Sex: F Assigned Patient Location: CT Current Patient Location: CT Accession/Order Number: [id number] Exam Date: 12/07/2023 13:52 Report Date: 12/07/2023 14:33 At the request of: VINNIE DSOUZA Procedure: CT lumbar spine wo con EXAMINATION: CT lumbar spine wo con HISTORY: Spondylolisthesis of lumbar region , low back pain COMPARISON: 04/26/2023 TECHNIQUE: Axial, Coronal, and Sagittal CT images were created without I.V. contrast material. Dose reduction techniques were achieved by using automated exposure control and/or adjustment of mA and/or kV according to patient size and/or use of iterative reconstruction technique. FINDINGS: PARASPINAL AREA: Normal with no visible mass. BONES: 18 degrees of rotatory levoscoliosis between L2 and L5. Moderate diffuse degenerative spondylosis and facet osteoarthropathy. 2 mm anterolisthesis ofr L3 on L4 and L4 on L5. Moderate diffuse degenerative spondylosis and facet osteoarthropathy DISC LEVELS: 12-L1: Moderate degenerative disc disease is present without visible neural impingement. L1-L2: Early degenerative disc disease is present without focal protrusion or neural impingement. L2-L3: Moderate degenerative disc disease is present without visible neural impingement. L3-L4: Mild to moderate disc space narrowing with endplate sclerosis and vacuum disks right greater than left. Degenerative changes resulting in bilateral foraminal stenosis L4-L5: Mild to moderate disc space narrowing with endplate sclerosis and vacuum disc, right greater than left. Degenerative changes. No central canal stenosis. Mild to moderate bilateral foraminal stenosis right greater than left L5-S1: Early degenerative disc disease is present without focal protrusion or neural impingement. CT/CT lumbar spine wo con IMPRESSION: 18 degrees of levoscoliosis with degenerative changes resulting in L3-4 and L4-L5 foraminal stenosis Multilevel minimal, grade 1, spondylolisthesis Electronically authenticated by: CHANDRAKANT HONEYCUTT Date: 12/07/2023 14:33
--- OUTSIDE RECORDS SUMMARY | 2023-12-07 13:50 | XMS_ITS | CCD ---
Author Organization [facility] CliniSymd Care Team Providers Care Director Of Pulmonary Unit Name Role Phone SHAMMO, DEMETRIA Primary Care [...] Other Provider MD Ara Carlin Other Provider [phone] MD Benjy Houser Other Provider Unavailable CECY Mata Other Provider [phone] MD Linsey Pradhan Other Provider MD Antoine [...] Bell Other Provider CECY Fuentes Other Provider [phone] CECY Chisholm Other Provider MD Taras Dunbar Other Provider MD Rickie Lobo Other Provider DO Jluis Harrell T Other Provider [phone] DO Ramez Mock Other Provider MD Rubén Ramirez P Other Provider ANA MARIA Blackwood Other Provider Unavailable Vazquez, MANAGER POST Wilda Other Provider MD Van Moore Other [...] Care Provider UnavailDO Mazin Roman Attending Provider NON STAFF Primary Care Unavailable Joseph Tello [...] (1 source) metroNIDAZOLE Drug Allergy 8 Hives [facility] Ondansetron (1 source) Ondansetron Drug Allergy 1 Itching [facility] (1 source) metroNIDAZOLE Drug Allergy 3 [facility] Repository (8 sources) metroNIDAZOLE; Translations: [METRONIDAZOLE] Drug Allergy 8 Nausea, Hives [facility] (10 sources) Ondansetron; Translations: [ONDANSETRON HCL] Drug Allergy 1 Itching [facility] (4 sources) metroNIDAZOLE; Translations: [METRONIDAZOLE HCL] Drug Allergy 8 Hives [facility] (1 source) metroNIDAZOLE Drug Allergy 4 [facility] Repository Medications Current Medications Medication Drug Class(es) Dates Sig (Normalized) Sig (Original) acetaminophen 300 mg / codeine phosphate 30 mg oral tablet (4 sources) Opioid Agonist Start: 07-14-2010 take 1 [...] 12:00am diphenhydrAMINE hydrochloride 25 mg oral capsule (4 sources) Histamine-1 Receptor Antagonist Start: 07-14-2010 take 1 capsule by mouth every six hours as needed diphenhydrAMINE 25 mg ORAL capsule Take 1 capsule by mouth every 6 hours as needed for Itching/Rash. 28 capsule 0 07/14/2010 Active docusate sodium 100 mg oral capsule (4 sources) Start: 07-14-2010 take 1 capsule by [...] Start: 02-06-2023 take 1 capsule by mo [facility] in the morning DULoxetine 40 mg [...] 12:00am Start: 02-28-2023 take [facility] tablet by [facility] every eight hours as needed ibuprofen (MOTRIN) 800 mg tablet Take 1 tablet (800 mg total) by mouth every 8 (eight) hours as needed. 0 02/28/2023 Active linezolid 600 mg oral tablet (4 sources) Oxazolidinone Antibacterial Start: 07-11-2010 take 1 [...] 05-14-2023 05-14-2023 Episodic Other connective tissue disease (4 sources) Trochanteric bursitis of left hip; Translations: [...] Onset: 05-21-2022 Episodic Other non-traumatic joint disorders (2 sources) Hip pain; Translations: [Pain in left hip] 09-03-2023 Episodic Other non-traumatic joint disorders (2 sources) Pain in right hip joint; Translations: [Pain [...] Chronic Other nutritional; endocrine; and metabolic disorders (12 sources) Obesity; Translations: [Obesity, unspecified] Onset: 05-17-2007 [...] Date Episodic/Chronic Disorders of teeth and jaw (4 sources) Jaw pain; Translations: [Jaw pain] Onset: 07-07-2010 Episodic Ectopic (5 sources) Ectopic ; Translations: [Unspecified ectopic without intrauterine ] Onset: 05-11-2012 04-30-2023 Episodic Other connective tissue disease (4 sources) Pain in limb; Translations: [Pain in unspecified limb] Onset: 05-17-2007 Resolved: 07-07-2010 07-07-2010 Episodic Pneumonia (except that caused by tuberculosis or sexually transmitted disease) (5 sources) Pneumonia; Translations: [Pneumonia, unspecified organism] Onset: 01-24-2023 01-24-2023 Episodic Skin and subcutaneous tissue infections (9 sources) Cellulitis and abscess of trunk; Translations: [Cellulitis of trunk, unspecified] Onset: 07-07-2010 04-30-2023 Episodic Spondylosis; intervertebral disc disorders; other back problems (8 sources) Degeneration of lumbosacral intervertebral disc; Translations: [Other intervertebral disc degeneration, lumbosacral region] Onset: 05-17-2007 Resolved: 07-07-2010 07-07-2010 Chronic Spondylosis; intervertebral disc disorders; other back problems (15 sources) Spinal stenosis of lumbar region; Translations: [Spinal stenosis, lumbar region without neurogenic claudication] Onset: 05-17-2007 Resolved: 07-07-2010 04-30-2023 Episodic Results Test Name Value Interpretation Reference Range Facility Pathology Request for Lab Co rpon 10-22-2023 Pathology Request for Lab Larry Normal [facility] Comment on above: Order Comment: PATHO LOGY [facility] Result Comment: See report. Scanned copy available in EMR. PERFORMED BY: [place] [address] [place] [address] PATHOLOGIST LEAD [employer] OPERATOR JANNETTE ROTHMAN M.D. Performed By: #### P ATH TO [facility] #### [facility] [id number] [facility] [place] Large Joint Arthro/Inj: bila teral hip jointson 09-30-2023 Edward Arita DO 09/30/2023 11:44 AM Large Joint Arthro/Inj: bilateral hip joints Informed Consent Consent Obtained: Verbal [place] Protocol A moment to CARE was completed. [...] Plan of Care Visit completed when applicable [facility] US HIP-INJECTION LT (POC) OR I USE ONLYon 09-30-2023 [facility] US HIP-INJECTION RT (POC) OR I USE ONLYon 09-30-2023 [facility] CNOVon 09-03-2023 CNOV Office Visit (LOORRM ) JENNIFER MENDES ([id number]) 1980 F [facility] Date Time Provider Department 09/03/23 8:30 [...] She reports that she moved here from [place] and moved in with her sisters in the last few years but moved into a [facility] in the last year when she could not get around or do self-care. She is now living in a [facility] facility. Has significant pain in her back [...] gabapentin and methadone all given at the [facility] without great pain control. She has done physical therapy as well. She has schizoaffective disorder but otherwise is fairly healthy. She notes that her weight was 268 when she entered the ch[facility] but is now 320. Pain level is [...] 4/5 Other (more content not included)... Normal [facility] Large Joint Arthro/Inj: R rani nixon trochanteric bursaon 09-03-2023 Tang Sloan PA-C 09/07/2023 4:29 PM Large Joint Arthro/Inj: R greater trochanteric bursa Informed Consent Consent Obtained: Verbal [place] Protocol A moment to CARE was completed. [...] of Care Visit completed when applicable Third constitution party verified by Monae Vaca MA. [facility] XR HIP JORGE LUIS 5V [...] No fracture. IMPRESSION: SEVERE BILATERAL HIP OSTEOARTHRITIS. Buffing Turner And Counter: FAY Transcribe Date/Time: Sep 03 2023 11:04A Dictated by : EVA ZARATE MD This examination was interpreted and the report reviewed and electronically signed by: EVA ZARATE MD on Sep 03 2023 11:05AM EST [id number] Normal [facility] XR HIP BILATERAL 5V PEL/AP/L AT EACH HIPon 09-03-2023 IMPRESSION: SEVERE BILATERAL HIP OSTEOARTHRITIS. Buffing [employer]: PSCB Transcribe Date/Time: Sep 03 2023 11:04A [...] pubis. No fracture. DIVISION OF RADIOLOGY Provider, [facility] - 09/03/2023 * * *Final Report* * [...] fracture. IMPRESSION IMPRESSION: SEVERE BILATERAL HIP OSTEOARTHRITIS. Buffing Turner [employer] Counter: FAY Transcribe Date/Time: Sep 03 2023 11:04A Dictated by : EVA ZARATE MD This examination was interpreted and the report reviewed and electronically signed by: EVA ZARATE MD on Sep 03 2023 11:05AM EST [facility] Radiology Study observation (narrative) Jamar owen [facility] XR HIP BILATERAL 5V PEL/AP/L AT EACH HIPOrdered By: [facility]cf Provider on 09-03-2023 [facility] Cholesterol [Mass/volume] in Serum or PlasmaOrdered By: Joseph Tello on 06-23-2023 Cholesterol [Mass/Vol] 172 mg/dL Normal 140-200 [facility] Comment on above: Chol less than 200 m g/dl low riskChol 201-239 mg/dl borderline riskChol 240 mg/dl and greater high risk Order Comment: WALDEMARI KEIRY Y Result Comment: Chol less than 200 mg/dl low risk Chol 201-239 mg/dl borderline risk Chol 240 mg/dl and greater high risk Performed By: #### T SH3 wRFLX, LIPID, [id number] #### [facility] [address] Cholesterol in LDL Calc [Mas s/Vol]Ordered By: Joseph Tello on 06-23-2023 Cholesterol in LDL [Mass/Vol] 100 mg/dL 0-100 [facility] Comment on above: LDL ATP III CLASSIFI CATIONLDL less than 100 mg/dL OptimalLDL 100-129 mg/dL Near or above optimalLDL 130-159 mg/dL Borderline highLDL 160-189 mg/dL HighLDL greater than 189 mg/dL Very high Cholesterol in VLDL Calc [Ma ss/Vol]Ordered By: Joseph Tello on 06-23-2023 Cholesterol in VLDL [Mass/Vol] 44 mg/dL [facility] ECG 12 lead ECGon 06-23-2023 ECG 12 lead ECG [facility] [address] [place] [address] Electrocardiograph Report Signed Patient: Jennifer Mendes MR#: [id number] : 1980 Acct:[id number] Age/Sex: 42 / F ADM Date: 06/22/23 Loc: Room: [address] [place] [address] Type: ADM IN Attending Dr: Joseph Tello [...] previous ECGs available Confirmed by Sekou Maciel ([id number]) on 06/23/2023 11:23:15 AM Referred By: Electronically Signed By:Sekou Maciel Transcribed By: MUS Signed By Sekou Maciel MD 06/23/23 1123 Normal [facility] Lipid Panelon 06-23-2023 LDL Cholesterol,Calculated 100 mg/dL Normal 0-100 [facility] Comment on above: Order Comment: ANGELIQUE Ornelas Result Comment: LDL ATP III CLASSIFICATION LDL less than 100 mg/dL Optimal LDL 100-129 mg/dL Near or above optimal LDL 130-159 mg/dL Borderline high LDL 160-189 mg/dL High LDL greater than 189 mg/dL Very high Performed By: #### T SH3 wRFLX, LIPID, [id number] #### [facility] [address] Triglyceride w/Reflex 220 mg/dL High 0-149 [facility] Comment on above: Order Comment: ANGELIQUE Ornelas Result Comment: TRIG ATP III CLASSIFICATION TRIG less than 150 mg/dL Normal TRIG 150-199 mg/dL Borderline high TRIG 200-500 mg/dL High TRIG greater than 500 mg/dL Very high Standard traceable to the Center for Disease Conrtrol and Prevention (CDC) test method. Performed By: #### T SH3 wRFLX, LIPID, [id number] #### [facility] [address] VLDL CHOLESTEROL 44 mg/dL Normal [facility] Comment on above: Order Comment: FASTI NG Y Performed By: #### T SH3 wRFLX, LIPID, [id number] #### [address] Serum or plasma high density lipoprotein (HDL) cholesterol measurementOrdered By: Joseph Tello on 06-23-2023 Cholesterol in HDL [Mass/Vol] 28 mg/dL Normal 23-92 [facility] Comment on above: HDL CHOL ATP-III CLA SSIFICATION Cardiovascular RiskHDL > or equal to 60 mg/dL LOWHDL < 40 mg/dL HIGH Order Comment: FASTI NG Y Result Comment: HDL CHOL ATP-III CLASSIFICATION Cardiovascular Risk HDL > or equal to 60 mg/dL LOW HDL < 40 mg/dL HIGH Performed By: #### T SH3 wRFLX, LIPID, [id number] #### [facility] [address] [place] [address] Serum or plasma total choles terol/high density lipoprotein (HDL) cholesterol mass ratOrdered By: Joseph Tello on 06-23-2023 Cholesterol.total/Cholest mitch in HDL [Mass ratio] 6.1 {ratio} Normal <5.0 [facility] Comment on above: Order Comment: FASTI NG Y Performed By: #### T SH3 wRFLX, LIPID, [id number] #### [facility] [address] Thyroid Stim Hormone w/Rflxo n 06-23-2023 Thyroid Stim Hormone w/Rflx 2.27 u[iU]/mL Normal 0.45-5.33 [facility] Comment on above: Order Comment: FASTI NG Y Performed By: #### T SH3 wRFLX, LIPID, [id number] #### [address] Thyrotropin [Units/volume] i n Serum or PlasmaOrdered By: Joseph Tello on 06-23-2023 TSH Qn 2.27 m[IU]/L 0.45-5.33 [facility] Triglyceride [Mass/volume] i n Serum or PlasmaOrdered By: Joseph Tello on 06-23-2023 Triglyceride [Mass/Vol] 220 mg/dL 0-149 [facility] Comment on above: TRIG ATP III CLASSIF ICATIONTRIG less than 150 mg/dL NormalTRIG 150-199 mg/dL Borderline highTRIG 200-500 mg/dL High TRIG greater than 500 mg/dL Very highStandard traceable to the Center for Disease Conrtrol and Prevention (CDC) test method. Vitamin D 25 Hydroxy Totalon 06-23-2023 Vitamin D 25 Hydroxy Total 13.4 ng/mL Low 30-100 [facility] Comment on above: Order Comment: FASTI NG Y Result Comment: DELVIS MIN D STATUS 25(OH)VITAMIN D RANGE (ng/mL) Deficient <20 Insufficient 20 to <30 Sufficient 30 to 100 Reference: Ricky Phipps, Shan KEARNEY, et al. Evaluation,treatment, and prevention of vitamin D deficiency; an Endocrine Society clinical practice guideline. JCEM. 2010; 96(7):1911-30. PERFORMED BY: [place] [address] PATHOLOGIST LEAD [employer] OPERATOR JANNETTE ROTHMAN M.D. Performed By: #### T SH3 wRFLX, LIPID, [id number] #### [facility] [address] Vitamin D+Metabolites [Mass/ volume] in Serum or PlasmaOrdered By: Joseph Tello on 06-23-2023 Vitamin D+Metabolites [Mass/Vol] 13.4 ng/mL 30-100 [facility] Comment on above: VITAMIN D STATUS 25( [place])VITAMIN D RANGE (ng/mL) Deficient <20 Insufficient 20 to <30Sufficient 30 to 100Reference: Ricky Phipps, Shan KEARNEY, et al. Evaluation,treatment, and prevention of vitamin D deficiency; an Endocrine Society clinical practice guideline. JCEM. 2010; 96(7):1911-30. ACETAMINOPHENon 06-22-2023 Acetaminophen [Mass/Vol] 5.1 ug/mL Low 10.0-30.0 [facility] Comment on above: Result Comment: Refe rence ranges are for therapeutic limits. Performed By: #### C CHANTELL, 4024-6, 5643-2, 3298-7, CBCA #### [facility] ([id number]) [address] [place] [address] 477[address] CBC AND AUTO DIFFon 06-22-19 ABSOLUTE BASOPHIL 0.2 X10E9/L Normal 0.0-0.2 [facility] Comment on above: Performed By: #### C CHANTELL, 4024-6, 5643-2, 3298-7, CBCA #### [facility] ([id number]) [address] [place] [address] 40901 ABSOLUTE NEUTROPHIL 8.5 X10E9/L High 1.5-6.6 [facility] Comment on above: Performed By: #### C CHANTELL, 4024-6, 5643-2, 3298-7, CBCA #### [facility] ([id number]) [address] [place] [address] 68200 Basophils/100 WBC (Bld) 1.5 % Normal [facility] Comment on above: Performed By: #### C CHANTELL, 4024-6, 5643-2, 3298-7, CBCA #### [facility] ([id number]) [address] [place] [address] 85425 Eosinophils (Bld) [#/Vol] 0.9 10*3/uL High 0.0-0.4 [facility] Comment on above: Performed By: #### C CHANTELL, 4024-6, 5643-2, 3298-7, CBCA #### [facility] ([id number]) [address] [place] [address] 90576 Eosinophils/100 WBC (Bld) 6.5 % Normal [facility] Comment on above: Performed By: #### C CHANTELL, 4024-6, 5643-2, 3297-7, CBCA #### [facility] ([id number]) [address] [place] [address] 38004 Erythrocyte distribution width (RBC) [Ratio] 18.1 % High 11.5-15.0 [facility] Comment on above: Performed By: #### C CHANTELL, [facility], [facility]-2, 3297-09, CBCA #### [facility] ([id number]) [address] [place] [address] 43802 Hematocrit (Bld) [Volume fraction] 35.5 % Normal 35-47 [facility] Comment on above: Performed By: #### C CHANTELL, [facility], [facility]-2, 3297-09, CBCA #### [facility] ([id number]) [address] [place] [address] 72545 Hemoglobin (Bld) [Mass/Vol] 11.2 g/dL Low 11.7-15.5 [facility] Comment on above: Performed By: #### C CHANTELL, [facility], [facility]-2, 32910-12, CBCA #### [facility] ([id number]) [address] [place] [address] 37620 Lymphocytes (Bld) [#/Vol] 3.1 10*3/uL Normal 1.0-3.5 [facility] Comment on above: Performed By: #### C CHANTELL, [facility]-6, 5643-2, 3297-09, CBCA #### [facility] ([id number]) [address] [place] [address] 52678 Lymphocytes/100 WBC (Bld) 22.2 % Normal [facility] Comment on above: Performed By: #### C CHANTELL, 4024-6, 5643-2, 7, CBCA #### [facility] ([id number]) [address] [place] [address] 46248 MCH (RBC) [Entitic mass] 23.1 pg Low 27-34 [facility] Comment on above: Performed By: #### Rene ABDUL, [facility], 56-2, 3297-09, CBCA #### [facility] ([id number]) [address] [place] [address] 21119 MCHC (RBC) [Mass/Vol] 31.4 g/dL Low 32-36 [facility] Comment on above: Performed By: #### Rene ABDUL, [facility], [facility]-2, 3297-09, CBCA #### [facility] ([id number]) [address] [place] [address] 90781 MCV (RBC) [Entitic vol] 74 fL Low 80-100 [facility] Comment on above: Performed By: #### Rene ABDUL, [facility]-6, [facility]-2, 3297-09, CBCA #### [facility] ([id number]) [address] [place] [address] 00844 Monocytes (Bld) [#/Vol] 1.1 10*3/uL High 0-0.9 [facility] Comment on above: Performed By: #### Rene ABDUL, [facility]-6, 5643-2, 3297-09, CBCA #### [facility] ([id number]) [address] [place] [address] 75504 Monocytes/100 WBC (Bld) 8.0 % Normal [facility] Comment on above: Performed By: #### C CHANTELL, [facility]-6, 5643-2, 3297-09, CBCA #### [facility] ([id number]) [address] [place] [address] 25697 Neutrophils/100 WBC (Bld) 61.8 % Normal [facility] Comment on above: Performed By: #### C CHANTELL, 4024-6, 5643-2, 329-7, CBCA #### [facility] ([id number]) [address] [place] [address] 85190 Platelet mean volume (Bld) [Entitic vol] 7.9 fL Normal 7-12 [facility] Comment on above: Performed By: #### C CHANTELL, 4024-6, 5643-2, 329-, CBCA #### [facility] ([id number]) [address] [place] [address] 01294 Platelets (Bld) [#/Vol] 530 10*3/uL High 150-450 [facility] Comment on above: Performed By: #### C CHANTELL, [facility]-6, 5643-2, 32910-12, CBCA #### [facility] ([id number]) [address] [place] [address] 74646 RBC COUNT 4.82 X10E12/L Normal 3.80-5.20 [facility] Comment on above: Performed By: #### C CHANTELL, 4024-6, 5643-2, 32910-12, CBCA #### [facility] ([id number]) [address] [place] [address] 50247 WBC (Bld) [#/Vol] 13.8 10*3/uL High 4.0-11.0 [facility] Comment on above: Performed By: #### C CHANTELL, 4024-6, 5643-2, 3298-, CBCA #### [facility] ([id number]) [address] [place] [address] 98558 COMPREHENSIVE METABOLIC PANE Jace 06-22-2023 Albumin [Mass/Vol] 3.6 g/dL Normal 3.2-5.3 [facility] Comment on above: Performed By: #### C CHANTELL, 4024-6, 5643-2, 3297-7, CBCA #### [facility] ([id number]) [address] [place] [address] 67190 ALP [Catalytic activity/Vol] 51 U/L Normal 39-130 [facility] Comment on above: Performed By: #### C CHANTELL, 4024-6, 5643-2, 7, CBCA #### [facility] ([id number]) [address] [place] [address] 14985 ALT [Catalytic activity/Vol] 18 U/L Normal 0-31 [facility] Comment on above: Performed By: #### C CHANTELL, 4024-6, 5643-2, 7, CBCA #### [facility] ([id number]) [address] [place] [address] 72960 Anion gap [Moles/Vol] 6 mmol/L Normal 5-15 [facility] Comment on above: Performed By: #### C CHANTELL, 4024-6, 5643-2, 3297-09, CBCA #### [facility] ([id number]) [address] [place] [address] 61377 AST [Catalytic activity/Vol] 14 U/L Normal 0-41 [facility] Comment on above: Performed By: #### C CHANTELL, 4024-6, 5643-2, 3297-09, CBCA #### [facility] ([id number]) [address] [place] [address] 31090 Bilirubin [Mass/Vol] 0.6 mg/dL Normal 0.3-1.2 [facility] Comment on above: Performed By: #### C CHANTELL, 4024-6, 5643-2, 3297, CBCA #### [facility] ([id number]) [address] [place] [address] 90491 Calcium [Mass/Vol] 9.0 mg/dL Normal 8.5-10.5 [facility] Comment on above: Performed By: #### C CHANTELL, 4024-6, 5643-2, 3297-7, CBCA #### [facility] ([id number]) [address] [place] [address] 21799 Chloride [Moles/Vol] 104 mmol/L Normal 98-109 [facility] Comment on above: Performed By: #### C CHANTELL, 4024-6, 5643-2, 7, CBCA #### [facility] ([id number]) [address] [place] [address] 33366 CO2 [Moles/Vol] 26 mmol/L Normal 22-32 [facility] Comment on above: Performed By: #### C CHANTELL, 4024-6, 5643-2, 3297-09, CBCA #### [facility] ([id number]) [address] [place] [address] 20845 Creatinine [Mass/Vol] 0.84 mg/dL Normal 0.40-1.00 [facility] Comment on above: Result Comment: METH OD TRACEABLE TO IDMS STANDARD Performed By: #### C CHANTELL, 4024-6, 5643-2, 3297, CBCA #### [facility] ([id number]) [address] [place] [address] 64893 GFR/1.73 sq M.predicted among non-blacks MDRD (S/P/Bld) [Vol rate/Area] 88 mL/min/{1.73_m2} Normal >59 [facility] Comment on above: Result Comment: Reported eGFR is based on the CKD-EPI 2020 equation that does not use a race coefficient. Performed By: #### C CHANTELL, 4024-6, 5643-2, 3298-7, CBCA #### [facility] ([id number]) [address] [place] [address] Glucose [Mass/Vol] 96 mg/dL Normal 65-99 [facility] Comment on above: Performed By: #### C CHANTELL, 4024-6, 5643-2, 3298-7, CBCA #### [facility] ([id number]) [address] [place] [address] 71092 Potassium [Moles/Vol] 3.9 mmol/L Normal 3.5-5.0 [facility] Comment on above: Performed By: #### C CHANTELL, 4024-6, 5643-2, 3298-7, CBCA #### [facility] ([id number]) [address] [place] [address] 59796 Protein [Mass/Vol] 8.0 g/dL Normal 6.0-8.0 [facility] Comment on above: Performed By: #### C CHANTELL, 4024-6, 5643-2, 3297, CBCA #### [facility] ([id number]) [address] [place] [address] 01344 Sodium [Moles/Vol] 136 mmol/L Normal 134-146 [facility] Comment on above: Performed By: #### C CHANTELL, 4024-6, 5643-2, 3298-7, CBCA #### [facility] ([id number]) [address] [place] [address] 71184 Urea nitrogen [Mass/Vol] 21 mg/dL Normal 5-23 [facility] Comment on above: Performed By: #### C CHANTELL, 4024-6, 5643-2, 3298-7, CBCA #### [facility] ([id number]) [address] [place] [address] 28887 DRUG SCREEN, URINEon 024 AMPHETAMINE/METHAMP Negative Normal NEG [facility] Comment on above: Result Comment: AMPH /METH screening cut off = 1000 ng/mL Performed By: #### D CRUZ #### [facility] ([id number]) [address] [place] [address] 30553 BARBITURATES Negative Normal NEG [facility] Comment on above: Result Comment: Ella iturates screening cut off value = 200 ng/mL Performed By: #### D CRUZ #### [facility] ([id number]) [address] [place] [address] 31417 BENZODIAZEPINES Negative Normal NEG [facility] Comment on above: Result Comment: Feng odiazepines screening cut off value = 200 ng/mL Performed By: #### D CRUZ #### [facility] ([id number]) [address] [place] [address] 42605 CANNABINOIDS Positive Abnormal NEG [facility] Comment on above: Result Comment: Conf irmation available upon request. Cannabinoids/THC screening cut off value = 50 ng/mL Performed By: #### D CRUZ #### [facility] ([id number]) [address] [place] [address] 62566 COCAINE METABOLITE Negative Normal NEG [facility] Comment on above: Result Comment: Coca ine screening cut off value = 300 ng/mL Performed By: #### D CRUZ #### [facility] ([id number]) [address] [place] [address] 16859 ECSTASY Negative Normal NEG [facility] Comment on above: Result Comment: Ecst asy screening cut off value = 500 ng/mL This report is intended for use in clinical monitoring or management of patients. Performed By: #### D CRUZ #### [facility] ([id number]) [address] [place] [address] 53873 METHADONE Negative Normal NEG [facility] Comment on above: Result Comment: Meth adone screening cut off value = 300 ng/mL. Performed By: #### D CRUZ #### [facility] ([id number]) [address] [place] [address] 70232 OPIATES Negative Normal NEG [facility] Comment on above: Result Comment: Opia alesha screening cut off value = 300 ng/mL NOTE: This test is used for the detection of codeine, hydrocodone (>1000 ng/mL), morphine and hydromorphone (>900 ng/mL) in urine. Performed By: #### D CRUZ #### [facility] ([id number]) [address] [place] [address] 56475 OXYCODONE Positive Abnormal NEG [facility] Comment on above: Result Comment: Conf irmation available upon request. Oxycodone screening cut off value = 300 ng/mL NOTE: This test is used for the detection of oxycodone and oxymorphone in urine. Performed By: #### D CRUZ #### [facility] ([id number]) [address] [place] [address] 47982 PHENCYCLIDINE Negative Normal NEG [facility] Comment on above: Result Comment: Phen cyclidine screening cut off value = 25 ng/mL Performed By: #### D CRUZ #### [facility] ([id number]) [address] [place] [address] 73931 ETHANOLon 06-22-2023 Ethanol [Mass/Vol] mg/dL Normal 0.00-0.08 [facility] Comment on above: Result Comment: This report is intended for use in clinical monitoring or management of patients. Performed By: #### C MP, 4024-6, 5643-2, 3298-7, CBCA #### [facility] ([id number]) [address] [place] [address] 21693 HCG ( test) Ql (U)o n 06-22-2023 Beta HCG ( test) Ql (U) Negative Normal NEG [facility] Comment on above: Performed By: #### 2 106-3 #### [facility] ([id number]) [address] [place] [address] 81134 Salicylates [Mass/Vol]on SALICYLATE <4.0 Normal 2.0-25.0 [facility] Comment on above: Result Comment: Refe rence ranges are for therapeutic limits. Performed By: #### C MP, 4024-6, 5643-2, 3298-7, CBCA #### [facility] ([id number]) [address] [place] [address] 92266 URN MACROSCOPIC NURon 2023 BILIRUBIN [place] Negative Normal NEG [facility] Comment on above: Performed By: #### N UM #### [facility] ([id number]) [address] [place] [address] 43924 BLOOD/HGB [place] Trace Abnormal NEG [facility] Comment on above: Performed By: #### N UM #### [facility] ([id number]) [address] [place] [address] [place] [address] GLUCOSE [place] Negative Normal NEG [facility] Comment on above: Performed By: #### N UM #### [facility] ([id number]) [address] [place] [address] [place] [address] KETONES [place] Negative Normal NEG [facility] Comment on above: Performed By: #### N UM #### [facility] ([id number]) [address] [place] [address] [place] [address] LEUKOCYTE ESTERASE [place] MODERATE Abnormal NEG [facility] Comment on above: Performed By: #### N UM #### [facility] ([id number]) [address] [place] [address] [place] [address] NITRITE [place] Negative Normal NEG [facility] Comment on above: Performed By: #### N UM #### [facility] ([id number]) [address] [place] [address] [place] [address] PH [place] 5.0 Normal 5.0-8.5 [facility] Comment on above: Performed By: #### N UM #### [facility] ([id number]) [address] [place] [address] 77599 PROTEIN [place] Negative Normal NEG [facility] Comment on above: Performed By: #### N UM #### [facility] ([id number]) [address] [place] [address] 78973 SPECIFIC GRAVITY [place] 1.015 Normal 1.003-1.035 [facility] Comment on above: Performed By: #### N UM #### [facility] ([id number]) [address] [place] [address] 25063 UROBILINOGEN [place] 0.2 eu/dL Normal <1.1 [facility] Comment on above: Performed By: #### N UM #### [facility] ([id number]) [address] [place] [address] 29378 PAP ACOG PANEL 2: 30 to 65on 06-03-2022 . . Normal [facility] Comment on above: Result Comment: Perf ormed at: WB Performed By: #### [id number] #### [facility] [address] [place] [address] Dr. Dustin Hoover Age Gdln ACOG Testing 30-[address] [facility] Comment on above: Performed By: #### 4 [id number] #### [facility] [address] [place] [address] Dr. Dustin Hoover DIAGNOSIS: Comment Abnormal [facility] Comment on above: Result Comment: EPIT HELIAL CELL ABNORMALITY. ATYPICAL SQUAMOUS CELLS OF UNDETERMINED SIGNIFICANCE (ASC-US). TRICHOMONAS VAGINALIS IS PRESENT. Performed at: WB Performed By: #### [id number] #### [facility] [address] [address] [address] Dustin Hoover Electronically signed by: Comment Normal [facility] Comment on above: Result Comment: Andreia López MD, Pathologist Performed at: WB Performed By: #### 4 [id number] #### [facility] [address] [address] [address] Dustin Hoover HPV Aptima Negative Normal Negative [facility] Comment on above: Result Comment: This nucleic acid amplification test detects fourteen high-risk HPV types (16,18,31,33,35,39,45,51,52,56,58,59,66,68) without differentiation. Performed at: =G Performed By: #### [id number] #### [facility] [address] [place] [address] Dr. Dustin Hoover HPV Genotype Reflex Comment Normal [facility] Comment on above: Result Comment: Crit eria not met, HPV Genotype not performed. Performed at: WB Performed By: #### [id number] #### [facility] [address] [place] [address] Dr. Dustin Hoover Methodology: Comment Normal [facility] Comment on above: Result Comment: This liquid based ThinPrep(R) pap test was screened with the use of an image guided system. Performed at: WB Performed By: #### [id number] #### [facility] [address] [place] [address] Dr. Dutsin Hoover Note: Comment Normal [facility] Comment on above: Result Comment: The Pap smear is a screening test designed to aid in the detection of premalignant and malignant conditions of the uterine cervix. It is not a diagnostic procedure and should not be used as the sole means of detecting cervical cancer. Both false-positive and false-negative reports do occur. . Performed at: WB Performed By: #### 4 [id number] #### [facility] [address] [place] [address] Dr. Dustin Hoover Pathologist Provided ICD10 Comment Normal [facility] Comment on above: Result Comment: R87. 610, R87.5 Performed at: WB Performed By: #### [id number] #### [facility] [address] [place] [address] Dr. Dustin Hoover Performed by: Comment Normal [facility] Comment on above: Result Comment: Bernadette Tucker, Gas Meter Checker (ASCP) Performed at: WB Performed By: #### 4 [id number] #### [facility] [address] [place] [address] Dr. Dustin Hoover Recommendation: Comment Abnormal [facility] Comment on above: Result Comment: Sugg est follow up as clinically appropriate. Performed at: WB Performed By: #### 4 [id number] #### [facility] [address] [place] [address] Dr. Dustin Hoover Specimen adequacy: Comment Normal [facility] Comment on above: Result Comment: Sati sfactory for evaluation. Endocervical and/or squamous metaplastic cells (endocervical component) are present. Performed at: WB Performed By: #### [id number] #### [facility] [address] [place] [address] Dr. Dustin Hoover LIPID PROFILEon 05-28-2022 CHOL-HDL RATIO NORM SEE BELOW Normal [facility] Comment on above: Result Comment: 3.3 - 4.4 LOW RISK 4.4 - 7.1 AVERAGE RISK 7.1 - 11.0 MODERATE RISK >11.0 HIGH RISK Performed By: #### P TT, PT #### [facility] [address] [place] [address] Dr. Dustin Hoover Cholesterol [Mass/Vol] 180 mg/dL Normal <=200 [facility] Comment on above: Performed By: #### P TT, PT #### [facility] [address] [place] [address] Dr. Dustin Hoover Cholesterol in HDL [Mass/Vol] 32 mg/dL Critically low 40-[address] [facility] Comment on above: Performed By: #### P TT, PT #### [facility] [address] [address] [address] Dustin Hoover Cholesterol in LDL [Mass/Vol] 108.6 mg/dL Normal [facility] Comment on above: Performed By: #### P TT, PT #### [facility] [address] [place] [address] Dr. Dustin Hoover Cholesterol.total/Cholest mitch in HDL [Mass ratio] 5.6 {ratio} Normal [facility] Comment on above: Performed By: #### P TT, PT #### [facility] [address] [place] [address] Dr. Dustin Hoover HDL NORMAL > or = 60 mg/dl - LO W CARDIOVASCULAR RISK <40 mg/dl - HIGH CARDIOVASCULAR RISK Normal [facility] Comment on above: Performed By: #### P TT, PT #### [facility] [address] [address] [address] Dustin Hoover LDL CALC NORMAL SEE BELOW Normal [facility] Comment on above: Result Comment: <100 mg/dl OPTIMAL 100 - 129 mg/dl NEAR OR ABOVE OPTIMAL 130 - 159 mg/dl BORDERLINE HIGH 160 - 189 mg/dl HIGH >190 mg/dl VERY HIGH Performed By: #### P TT, PT #### [facility] [address] [address] [address] Dustin Hoover Triglyceride [Mass/Vol] 197 mg/dL Critically high <=[address] [facility] Comment on above: Performed By: #### P TT, PT #### [facility] [address] [address] [address] Dustin Hoover VLDL CALC 39.4 mg/dL Normal [facility] Comment on above: Performed By: #### P TT, PT #### [facility] [address] [address] [address] Dustin Hoover MG MAMM SCREEN 3D JORGE LUIS CADon 05-28-2022 MG MAMM SCREEN 3D JORGE LUIS CAD Patient: JENNIFER MANZANO Exam Date: 05/28/2022 : 1980 Gender:F Ordering : DEMETRIA PHILLIPS Admission #: [id number] Family : Order #: [id number] CLICK HERE TO VIEW EXAM RADIOLOGY REPORT [...] breast cancer at age 64. LOCATION: [facility] BREAST COMPOSITION: Almost entirely fatty. FINDINGS: [...] on 05/28/2022 at 13:[address] [facility] PROF 14(COMP METB)on 023 Albumin [Mass/Vol] 3.3 g/dL Critically low 3.4-5.0 [facility] Comment on above: Performed By: #### P TT, PT #### [facility] [address] [address] [address] Dustin Hoover Albumin/Globulin [Mass ratio] 0.9 {ratio} Normal [facility] Comment on above: Performed By: #### P TT, PT #### [facility] [address] [place] [address] Dr. Dustin Hoover ALP [Catalytic activity/Vol] 54 U/L Normal 46-[address] [facility] Comment on above: Performed By: #### P TT, PT #### [facility] [address] [place] [address] Dr. Dustin Hoover ALT [Catalytic activity/Vol] 18 U/L Normal 14-[address] [facility] Comment on above: Performed By: #### P TT, PT #### [facility] [address] [address] [address] Dustin Hoover Anion gap [Moles/Vol] 10.8 mmol/L Normal [facility] Comment on above: Performed By: #### P TT, PT #### [facility] [address] [place] [address] Dr. Dustin Hoover AST [Catalytic activity/Vol] 11 U/L Critically low 15-[address] [facility] Comment on above: Performed By: #### P TT, PT #### [facility] [address] [place] [address] Dr. Dustin Hoover Bilirubin [Mass/Vol] 0.3 mg/dL Normal 0.2-1.[address] [facility] Comment on above: Performed By: #### P TT, PT #### [facility] [address] [place] [address] Dr. Dustin Hoover Calcium [Mass/Vol] 8.5 mg/dL Normal 8.5-10.[address] [facility] Comment on above: Performed By: #### P TT, PT #### [facility] [address] [place] [address] Dr. Dustin Hoover Chloride [Moles/Vol] 105 mmol/L Normal 98-107 [facility] Comment on above: Performed By: #### P TT, PT #### [facility] [address] [place] [address] Dr. Dustin Hoover CO2 [Moles/Vol] 26.2 mmol/L Normal 21.0-32.0 [facility] Comment on above: Performed By: #### P TT, PT #### [facility] [address] [place] [address] Dr. Dustin Hoover Creatinine [Mass/Vol] 0.61 mg/dL Normal 0.55-1.[address] [facility] Comment on above: Performed By: #### P TT, PT #### [facility] [address] [place] [address] Dr. Dustin Hoover EGFR-AF CITIZEN [place] >60 Normal >=60 [facility] Comment on above: Performed By: #### P TT, PT #### [facility] [address] [place] [address] Dr. Dustin Hoover EGFR-NON AF CITIZEN OF [place] >60 Normal >=60 [facility] Comment on above: Performed By: #### P TT, PT #### [facility] [address] [place] [address] Dr. Dustin Hoover Globulin (S) [Mass/Vol] 3.7 g/dL Normal T [facility] Comment on above: Performed By: #### P TT, PT #### [facility] [address] [place] [address] Dr. Dustin Hoover Glucose [Mass/Vol] 99 mg/dL Normal 74-106 [facility] Comment on above: Performed By: #### P TT, PT #### [facility] [address] [place] [address] Dr. Dustin Hoover Potassium [Moles/Vol] 4.0 mmol/L Normal 3.5-5.1 [facility] Comment on above: Performed By: #### P TT, PT #### [facility] [address] [place] [address] Dr. Dustin Hoover Protein [Mass/Vol] 7.0 g/dL Normal 6.4-8.2 [facility] Comment on above: Performed By: #### P TT, PT #### [facility] [address] [place] [address] Dr. Dustin Hoover Sodium [Moles/Vol] 138 mmol/L Normal 136-145 [facility] Comment on above: Performed By: #### P TT, PT #### [facility] [address] [place] [address] Dr. Dustin Hoover Urea nitrogen [Mass/Vol] 8.0 mg/dL Normal 7.0-18.0 [facility] Comment on above: Performed By: #### P TT, PT #### [facility] [address] [place] [address] Dr. Dustin Hoover Urea nitrogen/Creatinine [Mass ratio] 13.1 mg/mg Normal [facility] Comment on above: Performed By: #### P TT, PT #### [facility] [address] [place] [address] Dr. Dustin Hoover PROTIMEon 05-28-2022 INR Coag (PPP) [Relative time] 0.97 {INR} Normal [facility] Comment on above: Performed By: #### P TT, PT #### [facility] [address] [place] [address] Dr. Dustin Hoover INR GUIDELINES SEE BELOW Normal [facility] Comment on above: Result Comment: MARIA DOLORES RED INR: 2.0 - 3.0 CONDITIONS NOT LISTED BELOW 2.5 - 3.5 FOR PROSTHETIC HEART VALVE REPLACEMENT 2.5 - 3.5 RECURRENT THROMBOSIS Performed By: #### P TT, PT #### [facility] [address] [place] [address] Dr. Dustin Hoover PT Coag (PPP) [Time] 10.3 s Normal 9.0-11.6 [facility] Comment on above: Performed By: #### P TT, PT #### [facility] [address] [place] [address] Dr. Dustin Hoover PTTon 05-28-2022 aPTT Coag (Bld) [Time] 26.9 s Normal 22.3-36.2 Th e [facility] Comment on above: Performed By: #### P TT, PT #### [facility] [address] [place] [address] Dr. Dustin Hoover CHLAMYDIA/GONOCOCCUS QUENTIN (SW AB/URINE/PAPon 05-27-2022 Chlamydia trachomatis, QUENTIN Negative Normal Negative [facility] Comment on above: Performed By: #### P TT, PT #### [facility] [address] [place] [address] Dr. Dustin Hoover Neisseria gonorrhoeae, QUENTIN Negative Normal Negative [facility] Comment on above: Performed By: #### P TT, PT #### [facility] [address] [place] [address] Dr. Dustin Hoover DHEA SERUMon 05-27-2022 Dehydroepiandrosterone (DHEA) 382 ng/dL Normal 31-[address] [facility] Comment on above: Performed By: #### P TT, PT #### [facility] [address] [place] [address] Dr. Dustin Hoover VAGINITIS/VAGINOSIS DNA PROB Michael 05-27-2022 Catherine species Negative Normal Negative [facility] Comment on above: Performed By: #### V AGINT #### [facility] [address] [place] [address] Dr. Dustin Hoover Gardnerella vaginalis Positive Abnormal Negative [facility] Comment on above: Performed By: #### V AGINT #### [facility] [address] [place] [address] Dr. Dustin Hoover Trichomonas vaginalis Positive Abnormal Negative [facility] Comment on above: Performed By: #### V AGINT #### [facility] [address] [place] [address] Dr. Dustin Hoover DHEA-SULFATEon 05-26-2022 DHEA-Sulfate 48.3 ug/dL Critically low 57.3-279.2 [facility] Comment on above: Performed By: #### D CALLIEUL #### [facility] [address] [place] [address] Dr. Dustin Hoover FSHon 05-26-2022 FSH 14.7 mIU/mL Normal [facility] Comment on above: Result Comment: Adul t Female: Follicular phase 3.5 - 12.5 Ovulation phase 4.7 - 21.5 Luteal phase 1.7 - 7.7 Postmenopausal 25.8 - 134.8 Performed By: #### P TT, PT #### [facility] [address] [address] [address] Dustin Hoover HEPATITIS PANEL, ACUTEon HBsAg Screen Negative Normal Negative [facility] Comment on above: Performed By: #### H EPACUT #### [facility] [address] [place] [address] Dr. Dustin Hoover HCV AB Non-Reactive Normal Non Reactive [facility] Comment on above: Performed By: #### H EPACUT #### [facility] [address] [address] [address] Dustin Hoover Hep A Ab, IgM Negative Normal Negative [facility] Comment on above: Performed By: #### H EPACUT #### [facility] [address] [address] [address] Dustin Hoover Hep B Core Ab, IgM Negative Normal Negative [facility] Comment on above: Performed By: #### H EPACUT #### [facility] [address] [address] [address] Dustin Hoover Interpretation: Comment Normal [facility] Comment on above: Result Comment: Not infected with HCV unless early or acute infection is suspected (which may be delayed in an immunocompromised individual), or other evidence exists to indicate HCV infection. Performed By: #### H EPACUT #### [facility] [address] [place] [address] Dr. Dustin Hoover HIV 1 AND 2 WITH REFLEXon HIV Screen 4th Generation wRfx Non-Reactive Normal Non Reactive [facility] Comment on above: Result Comment: HIV Negative HIV-1/HIV-2 antibodies and HIV-1 p24 antigen were NOT detected. There is no laboratory evidence of HIV infection. Performed By: #### H IV12 #### [facility] [address] [place] [address] Dr. Dustin Hoover LUTEINIZING HORMONE (LH)on 0 05-26-2022 LH 41.0 mIU/mL Normal [facility] Comment on above: Result Comment: Adul t Female: Follicular phase 2.4 - 12.6 Ovulation phase 14.0 - 95.6 Luteal phase 1.0 - 11.4 Postmenopausal 7.7 - 58.5 Performed By: #### L BCLH #### [facility] [address] [place] [address] Dr. Dustin Hoover RPR QUANTon 05-26-2022 Rapid Plasma Reagin, Quant Non-Reactive Normal NonRea<1:[address] [facility] Comment on above: Result Comment: Plea se Note: This test does not meet current guidelines for screening and diagnosis of syphilis. This test is intended for following treatment response in patients being treated for syphilis infection. To screen for syphilis infection, a reflex cascade that includes both RPR and a treponema-specific assay should be utilized, such as Treponema pallidum (Syphilis) Screening [place] (664531) or Rapid Plasma Reagin (RPR) Test With Reflex to Quantitative RPR and Confirmatory Treponema pallidum Antibodies ([id number]). Performed By: #### P TT, PT #### [facility] [address] [place] [address] Dr. Dustin Hoover CBC AUTO DIFFon 05-25-2022 BASO # 0.1 103/ul Normal 0.0-0.[address] [facility] Comment on above: Performed By: #### C BC #### [facility] [address] [place] [address] Dr. Dustin Hoover Basophils/100 WBC (Bld) 0.7 % Normal 0.2-2.0 T [facility] Comment on above: Performed By: #### C BC #### [facility] [address] [place] [address] Dr. Dustin Hoover EO # 0.5 103/ul Normal 0.0-0.[address] [facility] Comment on above: Performed By: #### C BC #### [facility] [address] [place] [address] Dr. Dustin Hoover Eosinophils/100 WBC (Bld) 2.6 % Normal 0.9-7.[address] [facility] Comment on above: Performed By: #### C BC #### [facility] [address] [place] [address] Dr. Dustin Hoover Erythrocyte distribution width (RBC) [Ratio] 17.2 % Critically high 11.0-15.[address] [facility] Comment on above: Performed By: #### C BC #### [facility] [address] [place] [address] Dr. Dustin Hoover Hematocrit (Bld) [Volume fraction] 39.7 % Normal 36.0-48.[address] [facility] Comment on above: Performed By: #### C BC #### [facility] [address] [place] [address] Dr. Dustin Hoover Hemoglobin (Bld) [Mass/Vol] 12.4 g/dL Normal 12.0-16.[address] [facility] Comment on above: Performed By: #### C BC #### [facility] [address] [place] [address] Dr. Dustin Hoover IG # 0.13 10e3/ul Critically high 0.00-0.[address] [facility] Comment on above: Performed By: #### C BC #### [facility] [address] [place] [address] Dr. Dustin Hoover IG % 0.7 % Critically high 0.0-0.5 [facility] Comment on above: Performed By: #### C BC #### [facility] [address] [place] [address] Dr. Dustin Hoover LYMPH # 4.1 103/ul Critically high 1.2-3.[address] [facility] Comment on above: Performed By: #### C BC #### [facility] [address] [place] [address] Dr. Dustin Hoover Lymphocytes/100 WBC (Bld) 22.9 % Normal 20.5-60.[address] [facility] Comment on above: Performed By: #### C BC #### [facility] [address] [place] [address] Dr. Dustin Hoover MANUAL DIFF REQ NO Normal [facility] Comment on above: Performed By: #### C BC #### [facility] [address] [place] [address] Dr. Dustin Hoover MCH (RBC) [Entitic mass] 23.8 pg Critically low 26.7-34 .[address] [facility] Comment on above: Performed By: #### C BC #### [facility] [address] [place] [address] Dr. Dustin Hoover MCHC (RBC) [Mass/Vol] 31.2 g/dL Normal 29.9-35.[address] [facility] Comment on above: Performed By: #### C BC #### [facility] [address] [place] [address] Dr. Dustin Hoover MCV (RBC) [Entitic vol] 76.2 fL Critically low 81.0-99. [address] [facility] Comment on above: Performed By: #### C BC #### [facility] [address] [place] [address] Dr. Dustin Hoover MONO # 1.3 103/ul Critically high 0.3-0.[address] [facility] Comment on above: Performed By: #### C BC #### [facility] [address] [place] [address] Dr. Dustin Hoover Monocytes/100 WBC (Bld) 7.0 % Normal 1.7-12.0 [facility] Comment on above: Performed By: #### C BC #### [facility] [address] [place] [address] Dr. Dustin Hoover NEUT # 11.9 103/ul Critically high 1.4-6.[address] [facility] Comment on above: Performed By: #### C BC #### [facility] [address] [place] [address] Dr. Dustin Hoover Neutrophils/100 WBC (Bld) 66.1 % Normal 43.0-75.[address] [facility] Comment on above: Performed By: #### C BC #### [facility] [address] [place] [address] Dr. Dustin Hoover Platelet mean volume (Bld) [Entitic vol] 10.1 fL Normal 9.5-13.[address] [facility] Comment on above: Performed By: #### C BC #### [facility] [address] [place] [address] Dr. Dustin Hoover PLT 499 103/ul Critically high 150-[address] [facility] Comment on above: Performed By: #### C BC #### [facility] [address] [place] [address] Dr. Dustin Hoover RBC 5.21 106/ul Normal 4.20-5.[address] [facility] Comment on above: Performed By: #### C BC #### [facility] [address] [place] [address] Dr. Dustin Hoover WBC 18.0 103/ul Critically high 4.0-11.[address] [facility] Comment on above: Performed By: #### C BC #### [facility] [address] [place] [address] Dr. Dustin Hoover FREE T4on 05-25-2022 Free T4 [Mass/Vol] 0.82 ng/dL Normal 0.76-1.[address] [facility] Comment on above: Performed By: #### P TT, PT #### [facility] [address] [place] [address] Dr. Dustin Hoover GLYCOHEMOGLOBIN A1Con 2022 ADA RECOMMENDATION SEE BELOW Normal [facility] Comment on above: Result Comment: ADA RECOMMENDED LIMIT 4.0 - 6.0 ADA THERAPEUTIC TARGET < 7.0 ACTION SUGGESTED > 7.0 Performed By: #### A 1C #### [facility] [address] [place] [address] Dr. Dustin Hoover Glucose [Mass/Vol] 108 mg/dL Normal [facility] Comment on above: Performed By: #### A 1C #### [facility] [address] [place] [address] Dr. Dustin Hoover HbA1c (Bld) [Mass fraction] 5.4 % Normal 4.5-6.[address] [facility] Comment on above: Performed By: #### A 1C #### [facility] [address] [place] [address] Dr. Dustin Hoover PREG QUANT HCGon 05-25-2022 HCG QUANT 1 mIU/mL Normal [facility] Comment on above: Performed By: #### P TT, PT #### [facility] [address] [place] [address] Dr. Dustin Hoover HCG RANGE SEE BELOW Normal [facility] Comment on above: Result Comment: 5-50 0.2-1 WEEK 50-500 1-2 WEEKS 100-5,000 2-3 WEEKS 500-10,000 3-4 WEEKS 1,000-50,000 4-5 WEEKS 10,000-100,000 5-6 WEEKS 15,000-200,000 6-8 WEEKS 10,000-100,000 2-3 MONTHS Performed By: #### P TT, PT #### [facility] [address] [place] [address] Dr. Dustin Hoover TSHon 05-25-2022 TSH 2.768 uIU/mL Normal 0.358-3.[address] [facility] Comment on above: Performed By: #### P TT, PT #### [facility] [address] [place] [address] Dr. Dustin Hoover Vital Signs Date Time Vital Sign Value Performing Clinician Facility 06-25-2023 15:14-0400 Body temperature 98.1 [degF] [facility] 06-25-2023 15:14-0400 Diastolic blood pressure 88 mm[Hg] [facility] 06-25-2023 15:14-0400 Heart rate 105 /min [facility] 06-25-2023 15:14-0400 Respiratory rate 18 /min [facility] 06-25-2023 15:14-0400 SaO2% (BldA) [Mass fraction] 95 % [facility] 06-25-2023 15:14-0400 Systolic blood pressure 119 mm[Hg] [facility] 06-23-2023 14:22-0400 Body height 157.48 cm [facility] 06-22-2023 22:00-0400 Body weight 147.41 kg [facility] 06-03-2023 21:42-0400 Body mass index (BMI) [Ratio] 59.55 kg/m2 Butch Furlong DO Work Phone: [facility] 06-03-2023 21:42-0400 Body weight 147.69 kg Butch Furlong DO Work Phone: [facility] 05-28-2023 18:56-0400 Body mass index (BMI) [Ratio] 61.16 kg/m2 Butch Furlong DO Work Phone: [facility] 05-28-2023 18:56-0400 Body weight 151.68 kg Butch Furlong DO Work Phone: [facility] 05-28-2023 18:56-0400 Diastolic blood pressure 68 mm[Hg] Butch Furlong DO [facility] 05-28-2023 18:56-0400 Heart rate 71 /min Butch Furlong DO Work Phone[facility] 05-28-2023 18:56-0400 Systolic blood pressure 104 mm[Hg] Butch Furlong DO Work Phone: [facility] 05-18-2023 19:08-0400 Body mass index (BMI) [Ratio] 60.36 kg/m2 Megan Cash ACCOUNT RECEIVABLE ASSOCIATE-MARINATOR Work Phone: [facility] 05-18-2023 19:08-0400 Body temperature 98.01 [degF] Megan Cash ACCOUNT RECEIVABLE ASSOCIATE-MARINATOR [facility] 05-18-2023 19:08-0400 Body weight 149.69 kg Megan Cash ACCOUNT RECEIVABLE ASSOCIATE-MARINATOR Work Phone: [facility] 05-18-2023 19:08-0400 Diastolic blood pressure 68 mm[Hg] Megan JEWELL Work Phone: [facility] 05-18-2023 19:08-0400 Heart rate 71 /min Megan JEWELL Work Phone: [facility] 05-18-2023 19:08-0400 Respiratory rate 18 /min Megan JEWELL Work Phone: [facility] 05-18-2023 19:08-0400 SaO2% (BldA) [Mass fraction] 98 % Megan EJWELL Work Phone: [facility] 05-18-2023 19:08-0400 Systolic blood pressure 104 mm[Hg] Megan JEWELL Work Phone: [facility] 05-14-2023 18:39-0500 Body mass index (BMI) [Ratio] 57.5 kg/m2 Butch Furlong DO Work Phone[facility] 05-14-2023 18:39-0500 Body temperature 97.59 [degF] Butch Furlong DO Work Phone[facility] 05-14-2023 18:39-0500 Body weight 142.61 kg Butch Furlong DO Work Phone: [facility] 05-14-2023 18:39-0500 Diastolic blood pressure 68 mm[Hg] Butch Furlong DO Work Phone[facility] 05-14-2023 18:39-0500 Heart rate 90 /min Butch Furlong DO Work Phone: [facility] 05-14-2023 18:39-0500 Respiratory rate 18 /min Butch Furlong DO Work Phone[facility] 05-14-2023 18:39-0500 SaO2% (BldA) [Mass fraction] 98 % Butch Furlong DO Work Phone: [facility] 05-14-2023 18:39-0500 Systolic blood pressure 110 mm[Hg] Butch Furlong DO Work Phone[facility] 04-30-2023 17:38-0500 Body height 157.5 cm Butch Furlong DO Work Phone[facility] 04-30-2023 17:38-0500 Body mass index (BMI) [Ratio] 56.53 kg/m2 [facility] 04-30-2023 17:38-0500 Body temperature 97.81 [degF] Butch Furlong DO Work Phone: [facility] 04-30-2023 17:38-0500 Body weight 140.2 kg Butch Furlong DO Work Phone: [facility] 04-30-2023 17:38-0500 Diastolic blood pressure 62 mm[Hg] [facility]long [facility] 04-30-2023 17:38-0500 Heart rate 106 /min Butch Furlong DO Work Phone[facility] 04-30-2023 17:38-0500 Respiratory rate 20 /min Butch Furlong DO Work Phone: [facility] 04-30-2023 17:38-0500 SaO2% (BldA) [Mass fraction] 91 % Butch Furlong DO Work Phone[facility] 04-30-2023 17:38-0500 Systolic blood pressure 99 mm[Hg] Butch Furlong DO Work Phone[facility] Encounters Encounter Date Encounter Type Care Provider Facility Start: 10-22-2023 End: 10-22-2023 ambulatory NON STAFF [facility] Work Phone: Start: 10-22-2023 End: 10-22-2023 Departed Referred [facility] Start: 09-30-2023 End: 09-30-2023 Patient encounter [...] left hip; Pain in right hip Start: 09-03-2023 End: 09-03-2023 Subsequent hospital visit by physician Anita Poole 1 Work Phone: Radiology Comment on above: Pain in left hip [M2 5.552] Start: 08-30-2023 End: 08-30-2023 ambulatory MAZIN ROSITA Not Available Start: 07-29-2023 End: 07-29-2023 ambulatory TRAV VALDOVINOS Not Available Start: 07-08-2023 End: 07-08-2023 ambulatory [facility] Start: 2023 End: 2023 ambulatory TRAV VALDOVINOS Not Available Start: 06-23-2023 Non-patient / Non-visit [facility] Work Phone: Start: 06-22-2023 End: 06-25-2023 Evaluation and management of inpatient [facility] Work Phone: Start: 06-22-2023 End: 06-22-2023 Emergency department patient visit BUTCH Jane OLIVA [facility] Start: 06-22-2023 ambulatory Joseph Mcneil acility:[facility] Start: 06-03-2023 ambulatory Butch robins DO Work [...] present Start: 05-18-2023 Continuing Care Megan ga APRN-MARINATOR Work Phone: [facility] - [...] both hips; TB lung, latent; Schizophrenic disorder ([facility]); Class 3 severe obesity due to excess calories without serious comorbidity with body mass index (BMI) of 50.0 to 59.9 in adult ([facility]) Start: 04-26-2023 Registered Recurring [facility] Credible Start: 07-23-2022 ambulatory DEMETRIA SHAMMO Facility:[facility] 1 Start: 06-30-2022 ambulatory DEMETRIA SHAMMO Facility:[facility] 1 Start: 06-16-2022 End: 06-17-2022 ambulatory DEMETRIA SHAMMO Facility:[facility] Start: 06-09-2022 ambulatory DEMETRIA SHAMMO Facility:[facility] 1 Start: 06-02-[address] MAZIN MORENO . Facili ty:H1 Start: 05-29-2022 Encounter for genera l adult medical examination without abnormal findings DEMETRIA SHAMMO [facility] Start: 05-28-2022 End: 05-28-[address] MAZIN [...] Arthrocentesis aspir &/inj major jt/bursa w/us Edward Lee Arita DO Work Phone: Start: 09-30-2023 End: 09-30-2023 Arthrocentesis aspir&/inj major jt/bursa w/us Edward Lee Arita DO Work Phone: Start: 09-03-2023 Arthrocentesis aspir &/inj major jt/bursa w/o us Tang Sloan PA-C Work Phone: Start: 09-03-2023 Radex hips bilateral with pelvis minimum 5 views Tang Sloan PA-C Work Phone: Plan of Treatment Date Care Activity Detail Author Start: 05-28-2032 DTaP,Tdap and Td Vaccines (2 - Td or Tdap) DTaP,Tdap and Td Vaccines (2 - Td or Tdap) [facility] Start: 05-28-2032 Urine microalbumin profile DTaP,Tdap,Td Vaccine (2 - Td or Tdap) [facility] Start: 03-09-2026 Screening for malign ant neoplasm of cervix Cervical Cancer Screening [facility] Start: 05-27-2024 Adult BMI Screening Adult BMI Screen ing [facility] Start: 05-23-2024 Tobacco Screening Tobacco Screening [facility] Start: 05-20-2024 Tobacco Screening Tobacco Screening [facility] Start: 05-17-2024 Adult BMI Screening Adult BMI Screen ing [facility] Start: 04-30-2024 Adult BMI Screening Adult BMI Screen ing [facility] Start: 04-30-2024 Tobacco Screening Tobacco Screening [facility] Start: 01-31-2024 Tobacco Screening Tobacco Screening [facility] Start: 11-07-2023 Covid-19 Vaccine ( season) Covid-19 Vaccine ( season) [facility] Start: 11-07-2023 Influenza vaccination [facility] Start: 10-22-2023 [facility] Start: 09-30-2023 End: 09-30-2023 Patient encounter procedure 09/30/2023 9:15 AM EDT Office Visit Orthopaedics [address] [place] [address] Edward Arita, [address] [place] [address] Bilateral USGI Hip injections Orthopaedics Comment on above: Bilateral USGI Hip i njections Start: 06-25-2023 [facility] Start: 06-24-2023 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 [facility] Start: 06-24-2023 Referral to clinical parts designer [facility] Start: 06-22-2023 Hospital admission [facility] Start: 06-22-2023 [facility] Start: 03-08-2023 Behavioral Health Screening Behavioral Health Screening [facility] Start: 11-06-2022 Covid-19 Vaccine ( season) Covid-19 Vaccine () [facility] Start: 11-06-2022 Influenza vaccination Influenza Vacc ine [facility] Start: 2019 Screening for malign ant neoplasm of breast Mammogram Screening [facility] Start: 06-28-2000 Screening for malign ant neoplasm of cervix Pap Smear [facility] Start: 06-28-1998 Hepatitis B Vaccine (1 of 3 - 19+ 3-dose series) Hepatitis B Vaccine (1 of 3 - 19+ 3-dose series) [facility] Start: 06-28-1997 Adult BMI Follow Up Plan Adult BMI Follow Up Plan [facility] Start: 06-28-1997 Anxiety Screening Anxiety Screening [facility] Start: 06-28-1997 Depression Screening Depression Scre ing [facility] Start: 06-28-1997 HIV screening HIV Screening [facility] Start: 1991 Depression Screening Depression Scre ing [facility] Start: 06-28-1985 Pneumococcal vaccination Pneumococcal Vaccine (1 of 2 - PCV) [facility] Start: 1979 Tobacco Counseling Tobacco Counselin g [facility] Patient Education Depression, Ad ult (DC) [facility] Health DC Instructions [facility] Work Phone: Patient referral [facility] Work Phone: Immunizations Immunization Date Immunization Notes Care Provider Fa natalie 05-28-2022 tetanus toxoid, redu radha diphtheria toxoid, and acellular pertussis vaccine, adsorbed Butch Oliva DO Work Phone: [facility] Payers Date Payer Category Payer Private Health Insurance [employer] HU[employer] MEDICAID [facility] [id number] 2023-Present [address] [address] [place] [address] Medicaid [id number] 2023 Self-pay 2022 Medicaid [facility] [place] [id number] 2022-Present [phone] [address] [place] [address] [id number] 2006 Medicaid [id number] 1979 Unknown [id number] 2.16.840.1.293084.3.579.2.5 1979 Unknown [id number] 2.16.840.1.368308.3.579.2.5 1979 Unknown [id number] 2.16.840.1.698375.3.579.2.5 1979 Unknown [id number] 2.16.840.1.779402.3.579.2.5 1979 Unknown [id number] 2.16.840.1.780802.3.579.2.5 93 1979 Unknown [id number] 2.16.840.1.042791.3.579.2.5 1979 Unknown [id number] 2.16.840.1.078236.3.579.2.5 93 1979 Unknown [id number] 2.16.840.1.727162.3.579.2.5 93 1979 Unknown [id number] 2.16.840.1.472082.3.579.2.5 1979 Unknown [id number] 2.16.840.1.775241.3.579.2.5 1979 Unknown [id number] 2.16.840.1.355603.3.579.2.5 1979 Unknown [id number] 2.16.840.1.652891.3.579.2.1 1979 Unknown [id number] 2.16.840.1.534214.3.579.2.1 286 1979 Unknown [id number] 2.16.840.1.566785.3.579.2.1 259 1979 Unknown [id number] 2.16.840.1.616766.3.579.2.1 259 1979 Unknown [id number] 2.16.840.1.770587.3.579.2.1 259 1979 Unknown [id number] 2.16.840.1.504969.3.579.2.1 259 1979 Unknown [id number] 2.16.840.1.661320.3.579.2.1 259 1979 Unknown [id number] 2.16.840.1.524955.3.579.2.1 259 Unknown [id number] 2.16.840.1.789511.3.579.2.5 31 Unknown [id number] 2.16.840.1.312436.3.579.2.5 31 Unknown [id number] 2.16.840.1.169709.3.579.2.5 31 Social History Date Type Detail Facility Start: 05-17-2007 End: 04-30-2023 Tobacco smoking status DEIS Smokes tobacco daily [facility] Start: 03-08-1989 History of tobacco use Cigarette Smoker [facility] Start: 04-30-2023 End: 09-03-2023 Cigarettes smoked current (pack per day) - Reported 0.3 [facility] History of tobacco use Passive smoker [facility] Start: 04-30-2023 Tobacco use and exposure Smokeless tobacco non-user [facility] Start: 04-30-2023 End: 05-24-2023 Alcohol intake Ex-drinker (finding) [facility] Start: 04-30-2023 End: 09-03-2023 Tobacco use panel [facility] In the past 12 month s, has lack of transportation kept you from medical appointments or from getting medications? Yes [facility] Start: 04-30-2023 Tobacco Comment Started smoking at 9 years of age [facility] Start: 1980 Sex Assigned At Not on file [facility] Start: 06-24-2023 Tobacco smoking status NHIS Smoker (finding) [facility] Start: 1980 Sex Assigned At Female [facility] Start: 07-07-2010 Alcohol intake Current non-drinker of alcohol (finding) [facility] Tobacco smoking stat us NHIS Tobacco smoking consumption unknown [facility] Goals Date Patient Goal Desired Activity /State Functional Status Date Assessment Result Facility 06-25-2023 Functional status Patient at Baseline [facility] Work Phone: Mental Status Date Assessment Result Facility 06-25-2023 Cognitive function Cognitive Sta tus Patient at Baseline [facility] Work Phone: Clinical Notes 05-21-2022 to 09-30-2023 Edward Arita, - 09/30/2023 11:42 AM EDTPatient InstructionsTang Sloan [...] hip joints Informed Consent Consent Obtained: Verbal [place] Protocol A moment to CARE was completed. [...] Arita DO 09/30/2023 documented in this encounter [facility] 09-03-2023 Instructions Tang Sloan PA-C [...] MUCH MORE DANGEROUS. documented in this encounter [facility] 09-03-2023 Note HNO ID: [id number] Author: TANG SLOAN PA-C Service: ? Author Type: Physician [place] Operator Type: Progress Notes Filed: 09/07/2023 16:29 Note [...] She reports that she moved here from [place] and moved in with her sisters in the last few years but moved into a [facility] in the last year when she could not get around or do self-care. She is now living in a [facility] facility. Has significant pain in her back [...] gabapentin and methadone all given at the [facility] without great pain control. She has done physical therapy as well. She has schizoaffective disorder but otherwise is fairly healthy. She notes that her weight was 268 when she entered the [facility] but is now 320. Pain level is [...] Significant tenderness o (more content not included)... [facility] 09-03-2023 History of Presen t [...] She reports that she moved here from [place] and moved in with her sisters in the last few years but moved into a [facility] in the last year when she could not get around or do self-care. She is now living in a [facility] facility. Has significant pain in her back [...] gabapentin and methadone all given at the [facility] without great pain control. She has done physical therapy as well. She has schizoaffective disorder but otherwise is fairly healthy. She notes that her weight was 268 when she entered the [facility] but is now 320. Pain level is [...] been 268 pounds when she entered the [facility] and is now 320. She needs to [...] trochanteric bursa Informed Consent Consent Obtained: Verbal [place] Protocol A moment to CARE was completed. [...] of Care Visit completed when applicable Third constitution party verified by Monae Vaca MA. FOLLOW-UP: Return for appt for bilat hip inj with Ultrasound. SIGNATURE: Tang Sloan PA-C PATIENT NAME: Jennifer Mendes DATE: September 03, 2023 TIME: 9:09 AM documented in this encounter [facility] 09-03-2023 Note HNO ID: [id number] Author: JULY MORRISON RT(R) Service: ? Author [...] PATIENT PRESENTS WITH AN IMPLANTABLE OR ATTACHED MEDICAL SERVICES MANAGER: No RADIOLOGY DEPARTMENT: General X-ray: Exam(s) Completed: Pelvis X-Ray: Pelvis with Hip Bilateral PERIPHERAL IV DATA: Not applicable SIGNED BY: RT Devi(R) September 03, 2023 8:[address] [facility] 09-03-2023 History of Presen t [...] PATIENT PRESENTS WITH AN IMPLANTABLE OR ATTACHED MEDICAL SERVICES MANAGER: No RADIOLOGY DEPARTMENT: General X-ray: Exam(s) Completed: Pelvis X-Ray: Pelvis with Hip Bilateral PERIPHERAL IV DATA: Not applicable SIGNED BY: RT Devi(R) September 03, 2023 8:51 AM documented in this encounter [facility] 06-25-2023 Discharge summary Note Date/Time June 25, 2023 7:11am [facility] [address] [place] [address] Discharge Summary Signed Patient: Jennifer Mendes MR#: [id number] : 1980 Acct:[id number] Age/Sex: 42 / F Adm Date: 4 Loc: Room: [address] [place] [address]: Joseph Tello MD Copies to: [...] unit milieu. She has been working with pillowcase cutter on her aftercare she agreed to continue [...] 99 Discharge Plan Discharge Plan Patient Disposition: termite control service representative [place] Care/Resident Activity: With Assist Diet: Regular Additional Instructions: Important Contact Information You can call [facility] at [phone] any time day or night if you have emergent questions or question regarding discharge instructions. If at any time you are feeling an increase inyour psychiatric symptoms, call your physician or behavioral healthcare provider. If any time you have thoughts of harming yourself or others contact one of the following: Call 8 (available 28/09) Crisis Text Line (available 28/09) text 4HOPE to [phone] [facility] Hope Line (available 8 a.m. Midnight) call [phone] ([phone]) Prescriptions: Continued aripiprazole 20 mg tablet 20 [...] tablet 600 mg PO TID Follow Up: Carlos, Jona [Other] (facility to manage all care and needs) Exam Physical Exam Vital Signs: Temp Pulse Resp BP Pulse Ox O2 Del Method 97.9 F 78 18 90/65 L 96 Room Air 06/24/23 20:20 06/24/23 20:20 06/24/23 20:20 06/24/23 20:20 06/24/23 20:20 06/24/23 20:20 Documented By: Joseph Tello MD 4 [id number] Signed By: <Electronically signed by Joseph Tello MD> 06/25/23 0711 [facility] Work Phone: 1(882) 489-850904-19-2024 Consult note Author Linsey Pradhan [facility] June 24, 2023 11:55pm Note Date/Time June 24, 2023 12: 47pm [facility] [address] [place] [address] Hospitalist Consult Note Signed Patient: Jennifer Mendes MR#: [id number] : 1980 Acct:[id number] Age/Sex: 42 / F Adm Date: 4 Loc: Room: [address] [place] [address] Type: ADM IN Attending Dr: Joseph Tello MD Copies to: NON STAFF MD Anita Hull, ACCOUNT RECEIVABLE ASSOCIATE Linsey Pradhan MD~ HPI DATE OF CONSULTATION: [...] <Electronically signed by Linsey Pradhan MD> 06/24/23 6666 [facility] Work Phone: 1(674) 952-730704-18-2024 Progress note Author Joseph martinez [facility] June 24, 2023 6:40am Note Date/Time June 24, 2023 6:4 0am [facility] [address] [place] [address] Psychiatry Progress Note Signed Patient: Jennifer Mendes MR#: [id number] : 1980 Acct:[id number] Age/Sex: 42 / F Adm Date: 4 Loc: Room: [address] [place] [address] Type : ADM IN Attending Dr: Joseph [...] by Joseph Tello MD> 06/24/23 0640 [facility] Work Phone: 1(525) 740-872604-17-2024 History and physical note Author Joseph martinez [facility] June 23, 2023 9:03am Note Date/Time June 23, 2023 8:5 8am [facility] [address] [place] [address] Psychiatry H&P Signed Patient: Jennifer Mendes MR#: [id number] : 1980 Acct:[id number] Age/Sex: 42 / F Adm Date: 4 Loc: 1S Room: [address] [place] [address] Type: ADM IN Attending Dr: Joseph Tello [...] signed by Joseph Tello MD> 06/23/23 0903 [facility] Work Phone: 1(296) 706-415603-28-2024 History of Present illness Narrative* Butch Jane Concepcion, DO - 06/03/2023 9:42 PM EDT Patient Name: Jennifer Mendes Date of : 1980 Date of Service: 06/03/2023 Facility: [facility] Type of Visit: Skilled Visit Subjective Jennifer Mendes is a 42 y.o. female seen today at care home facility for acute visit. Jennifer She was [...] BY: Butch Oliva DO documented [facility] History of Present illness Narrative* Butch Oliva DO - 05/28/2023 11:59 PM EDT Patient Name: Jennifer Mendes Date of : 1980 Date of Service: 05/28/2023 Facility: [facility] Type of Visit: Skilled Visit Subjective Jennifer Mendes is a 42 y.o. female seen today at care home facility for therapy visit. Jennifer is in [...] BY: Butch Oliva DO documented in this encounterZ[facility]ville [facility]03-12-[facility]24 History of Present illness Narrative* Megan Cash, ACCOUNT RECEIVABLE ASSOCIATE-MARINATOR - 05/18/2023 11:59 PM EDT Images from the original note were not included. Patient Name: Jennifer Mendes Date of : 1980 Date of Service: 05/18/2023 Facility: [facility] Type of Visit: Skilled Visit Subjective Jennifer Mendes is a 42 y.o. female seen today at care home facility for Chief Complaint Patient presents with [...] Anemia Anxiety Arthritis Back pain Bipolar disorder ([facility]) Depression Latent tuberculosis infection Obesity Pneumonia Substance abuse ([facility]) Past Surgical History: Procedure Laterality Date FRACTURE [...] current episode mixed, current episode severity unspecified ([facility]) 3. Primary osteoarthritis of both hips 4. Schizophrenic disorder ([facility]) 5. Class 3 severe obesity due to excess calories with serious comorbidity and body mass index (BMI)of 60.0 to 69.9 in adult ([facility]) 6. Full code status Spinal stenosis of lumbar region Awaiting Medicaid approval to pursue pain management. Referral done, sent to [facility]. -Pain controlled with Oxycodone, [...] Napoles APRN-CNP 05/24/23 1753 documented in this encounterZanesville City [facility]03-08-2024 History of Present illness Narrative* Butch Oliva, DO - 05/14/2023 6:37 PM EST Patient Name: Jennifer Mendes Date of : 1980 Date of Service: 05/14/2023 Facility: [facility] Type of Visit: Skilled Visit Subjective Jennifer Mendes is a 42 y.o. female seen today at care home facility for therapy visit. Jennifer is in [...] current episode mixed, current episode severity unspecified ([facility]) 6. Schizophrenic disorder ([facility]) Medically stable. Continue therapy to reach MMI. Await approval for medicaid so she can go to pain management. Other medications reviewed and are medically necessary. ELECTRONICALLY SIGNED BY: Butch Oliva DO documented in this encounterZanesville City Hospital02-23-2024 History of Present illness Narrative* Butch Oliva DO - 04/30/2023 5:37 PM EST Patient Name: Jennifer Mendes Date of : 1980 Date of Service: 04/30/2023 Facility: [facility] Type of Visit: Admission H&P Subjective Jennifer Mendes is a 42 y.o. female seen today at care home facility for admission H&P. jennifer presents to [facility] from the [facility] where she was treated for intractable [...] scheduled to see a neurosurgeon up in [place] but then her insurance lapsed and the [...] Abdominal wall cellulitis Anemia Anxiety Bipolar disorder ([facility]) Depression Latent tuberculosis infection Pneumonia Past Surgical [...] current episode mixed, current episode severity unspecified ([facility]) 4. Anxiety 5. Primary osteoarthritis of both hips 6. TB lung, latent 7. Schizophrenic disorder ([facility]) 8. Class 3 severe obesity due to excess calories without serious comorbidity with body mass index (BMI) of 50.0 to 59.9 in adult ([facility]) Admit to [facility] for therapy. She is motivated to improve. She will need pain management and maybe neurosurgery. Fair to good rehab potential. Full code. Continue medications from the hospital. She was treated for TB with INH per pt. Continue doxycycline for syphilis. ELECTRONICALLY SIGNED BY: Butch Oliva DO documented in this encounterZanesville City Hospital04-11-2023 NoteCONSULTATION CONSULTATION DATE: 06/16/2022 TO: TRENOTN Johnston [...] our patients to inform us about any [id number] medications or herbal remedies/nutritional supplements/alternative remedies. 2. [...] treatment options with their primary care provider.[facility] [phone] NotePROCEDURE: XR HIP LT 2 3V W PELVIS HISTORY: Pain ; left hip pain after falling COMPARISON: None. FINDINGS: BONES:Complete loss of the hip joint spaces bilaterally with subchondral sclerosis, [id number] articulation, and remodeling of the femoral heads and acetabulum. SOFT TISSUES:No visible soft tissue swelling. EFFUSION:None visible. OTHER: Negative. IMPRESSION: 1. No acute bone abnormality. 2. Advanced degenerative changes of hip joints bilaterally. Electronically authenticated by: JEAN CARLOS MEDINA Date: 2022-05-21 11:47[facility]* Diagnosis Spinal stenosis of lumbar region, unspecified whether neurogenic claudication present- Primary Syphilis (acquired) Unspecified syphilis Bipolar affective disorder, current episode mixed, current episode severity unspecified ([facility] Anxiety Anxiety state, unspecified Primary osteoarthritis of both hips TB lung, latent Schizophrenic disorder ([facility]) Unspecified schizophrenia, unspecified condition Class 3 severe obesity due to excess calories without serious comorbidity with body mass index (BMI) of 50.0 to 59.9 in adult ([facility]) [facility] Diagnosis Spinal stenosis of lumbar region, unspecified whether neurogenic claudication present- Primary Bilateral primary osteoarthritis of hip Muscle weakness (generalized) Other abnormalities of gait and mobility Bipolar affective disorder, current episode mixed, current episode severity unspecified ([facility]) Schizophrenic disorder ([facility]) Unspecified schizophrenia, unspecified condition [facility]* Diagnosis Spinal stenosis of lumbar region, unspecified whether neurogenic claudication present- Primary Bipolar affective disorder, current episode mixed, current episode severity unspecified ([facility]) Primary osteoarthritis of both hips Schizophrenic disorder ([facility]) Unspecified schizophrenia, unspecified condition Class 3 severe obesity due to excess calories with serious comorbidity and body mass index (BMI) of 60.0 to 69.9 in adult ([facility]) Full code status [facility] encounter [facility]* Diagnosis Bilateral primary osteoarthritis of hip- Primary Muscle weakness (generalized) Other abnormalities of gait and mobility Spinal stenosis of lumbar region, unspecified whether neurogenic claudication present documented [facility] encounter [facility]* Diagnosis Pedal edema- Primary Edema Intertrigo Other specified erythematous condition Morbid obesity ([facility]) Morbid obesity documented [facility] encounter [facility]* Diagnosis Onset Date Resolution Status Chronic pain acute Generalized anxiety disorder acute Major depressive disorder, recurrent, moderate acute [facility] Work Phone: Evaluation note* Diagnosis Primary [...] region and thigh documented in this encounter [facility]Evaludelaware [facility] note* Diagnosis Primary osteoarthritis of both hips- Primary Primary localized osteoarthrosis, pelvic region and thigh documented in this encounter [facility] CenterEvaludelaware [facility] noteNo assessment information availableOhiohealth Van [facility] Work Phone: Evaluation note* Diagnosis Pain in left hip Pain in joint, pelvic region and thigh Pain in right hip Pain in joint, pelvic region and thigh documented in this encounter [facility] CenterInstructionsNot on filedocumented in this encounterProMarion Hospital SystemInstructions* Attachments The following attachments cannot be sent through Care Everywhere. * Bipolar disorder (Vietnamese) documented in this encounterProMarion Hospital SystemInstructionsNot on file documented in this encounterProMarion Hospital SystemInstructionsNot on file documented in this encounterProSelect Medical [facility], Edwin ShawReason for referral (narrative)* Diagnostic Procedure Only (Routine) - Closed Specialty Diagnoses / Procedures Referred By Nazario sanches Referred To Contact XR IMAGING Diagnoses Pain in left hip Pain in right hip Procedures XR HIP BILATERAL 5V PEL/AP/LAT EACH HIP RADEX HIPS BILATERAL WITH PELVIS MINIMUM 5 VIEWS Tang Sloan PA-C [address] [place] [address] [place] [address] Referral ID Status Reason Start Date Expiration Date V isits Requested Visits Authorized [id number] Closed Auto-Generate d Referral 08/30/2023 09/28/2024 1 1 [facility] for visit Narrative* Diagnostic Procedure Only (Routine) - Closed Specialty Diagnoses / Procedures Referred By Contac t Referred To Contact XR IMAGING Diagnoses Pain in left hip Pain in right hip Procedures XR HIP BILATERAL 5V PEL/AP/LAT EACH HIP RADEX HIPS BILATERAL WITH PELVIS MINIMUM 5 VIEWS Tang Sloan PA-C [address] [place] [address] [place] [address] Referral ID Status Reason Start Date Expiration Date V isits Requested Visits Authorized [id number] Closed Auto-Generate d Referral 08/30/2023 09/28/2024 1 1 [facility] Summary Purpose Family History No [...] HIGH COMPLEX 45 MINS Tang Sloan PA-C [address] [place] [address] [facility] [address] [address] Referral ID Status Reason Start Date Expiration Date Visits Requested Visits Authorized [id number] Pending Review Auto-Generat ed Referral 09/03/2023 09/02/2024 1 1 Specialty Diagnoses / Procedures Referred By Nazario sanches Referred To Contact XR IMAGING Diagnoses Pain in left hip Pain in right hip Procedures XR HIP BILATERAL 5V PEL/AP/LAT EACH HIP RADEX HIPS BILATERAL WITH PELVIS MINIMUM 5 VIEWS Tang Sloan PA-C [address] [place] [address] [place] [address] Referral ID Status Reason Start Date Expiration Date V isits Requested Visits Authorized [id number] Closed Auto-Generate d Referral 08/30/2023 09/28/2024 1 1 Additional Source Comments INFORMATION SOURCE (unrecogn ized section and content) DATE CREATED AUTHOR 07/08/2022 [facility] DATE CREATED AUTHOR AUTHOR'S ORGANIZ ATION 07/09/2023 [facility] DATE CREATED AUTHOR AUTHOR'S ORGANIZ ATION 09/09/[address] [facility] DATE CREATED AUTHOR AUTHOR'S ORGANIZ ATION 09/24/2023 [facility] EPIC DATE CREATED AUTHOR AUTHOR'S ORGANIZ ATION 10/27/2023 [facility] Care Teams (unrecognized sec tion and content) Team Status: Active Member Role Status Dates NON STAFF Primary Care Provider Active Team Status: Inactive Member Role Status Dates NON STAFF Primary Care Provider Active Start: October 22, 2023 End: October 22, 2023 Mazin Moreno DO Attending Provider Active Start : October 22, 2023 End: October 22, 2023 Director Of Pulmonary Unit Relationship Specialty Start Date End Date No Pcp, [place] [address] PCP - General Family Medicine 10/30/22 Director Of Pulmonary Unit Relationship Specialty Start Date End Date No Pcp, [place] [address] PCP - General Family Medicine 10/30/22 Director Of Pulmonary Unit Relationship Specialty Start Date End Date No Pcp, [place] [address] PCP - General Family Medicine 10/30/22 Director Of Pulmonary Unit Relationship Specialty Start Date End Date No Pcp, [place] [address] PCP - General Family Medicine 10/30/22 Director Of Pulmonary Unit Relationship Specialty Start Date End Date No Pcp, [place] [address] PCP - General Family Medicine 10/30/22 Team [...] June 22, 2023 End: June 25, 2023 iVtaly Lees DO Other Provider Active Start: June [...] Marin , Other Provider Active Start: Ap ril 2023 [...] A pril 2023 End: June 25, 2023 Rickei Lobo MD Other Provider Active S tart: [...] Vazquez NP Other Provider Active Start: Jun il 2023 End: June 25, 2023 Van Moore MD [...] Procedures SERENA INJECT 1 Tang Sloan PA-C [address] [place] [address] dEward Arita DO [address] [place] [address] Referral ID Status Reason Start Date Expiration Date V isits Requested Visits Authorized [id number] Closed Financial Clearance Not Required 09/30/2023 10/31/2023 1 1 Source Comments (unrecognize d section and content) In the event this informatio n is protected by the Federal Confidentiality of Alcohol and Drug Abuse Patient Records regulations: The Federal rules restrict any use of the information to criminally investigate or prosecute any alcohol or drug abuse patient.[facility] CenterIn the event this information is protected by the Federal Confidentiality of Alcohol and Drug Abuse Patient Records regulations: The Federal rules restrict any use of the information to criminally investigate or prosecute any alcohol or drug abuse patient.[facility] CenterIn the event this information is protected by the Federal Confidentiality of Alcohol and Drug Abuse Patient Records regulations: The Federal rules restrict any use of the information to criminally investigate or prosecute any alcohol or drug abuse patient.[facility] CenterIn the event this information is protected by the Federal Confidentiality of Alcohol and Drug Abuse Patient Records regulations: The Federal rules restrict any use of the information to criminally investigate or prosecute any alcohol or drug abuse patient.[facility] Goals (unrecognized section and content) Goals may [...] BE BASED ON THE PRIMARY CLINICAL RECORDS. [facility] [employer] [facility]. provides no warranty or guarantee of the accuracy or completeness of information in this document.
== END 2023-12-07 13:44 | disposition home or self-care (01) ==
LOC: CT 13:43
PROVIDERS: PCP Family Medicine; Visit Provider Neurological Surgery
DX: M48.16 Ankylosing hyperostosis [Forestier], lumbar region (principal); M51.360 Other intervertebral disc degeneration, lumbar region with discogenic back pain only
CPT/HCPCS: 72131

== ENCOUNTER 2023-12-17 12:45 | Outpatient (OUT) | payer MEDICAID, SELFPAY ==
--- NOTE | 2023-12-17 12:50 | MR_ITS ---
[address] [address] Patient Name: DALLAS GARRISON MRN: [id number] date: 1980 Sex: F Assigned Patient Location: MRI Current Patient Location: Accession/Order Number: [id number] Exam Date: 12/17/2023 13:00 Report Date: 12/19/2023 08:03 At the request of: VINNIE DSOUZA Procedure: MR lumbar spine wo con EXAMINATION: MR lumbar spine wo con HISTORY: spondylosis of lumbar region COMPARISON: CT lumbar spine 12/07/2023 TECHNIQUE: A variety of imaging planes and parameters were utilized for visualization of suspected pathology. FINDINGS: For the purposes of numbering, sagittal T2 image # 8 extends from the T11 vertebral body superiorly to the S3 level inferiorly. PARASPINAL AREA: Normal with no visible mass. BONES: Mild grade 1 anterolisthesis of L4 on 5. No fracture or bone lesion. CORD/CAUDA EQUINA: Normal caliber, contour, and signal intensity. DISC LEVELS: 12-L1: Moderate degenerative disc disease is present without visible neural impingement. L1-L2: No significant disc/facet abnormality, spinal stenosis, or foraminal stenosis. L2-L3: Moderate to marked central canal narrowing. Moderate right, mild left foramen narrowing. Moderate diffuse disc bulging and moderate disc height reduction. Mild degenerative facet arthropathy. L3-L4: Marked central canal and right foramen narrowing. Moderate left foramen narrowing. Moderate diffuse disc bulging without significant disc height reduction. Moderate degenerative facet arthropathy bilaterally. L4-L5: Marked central canal narrowing. Moderate to marked right foramen narrowing, moderate left foramen narrowing. Moderate diffuse disc bulging without significant disc height reduction. Mild degenerative facet arthropathy bilaterally. L5-S1: Mild central canal narrowing. Mild right, moderate to marked left foramen narrowing. Moderate diffuse disc bulging without significant disc height reduction. Moderate degenerative facet arthropathy. MR/MR lumbar spine wo con IMPRESSION: 1. Moderate to marked central canal narrowing L2-L3 through L4-L5 secondary to moderate disc bulging and degenerative facet arthropathy. 2. Moderate or greater foramen narrowing occurring at L2-L3 through L5-S1 as detailed above. Electronically authenticated by: JEAN CARLOS MEDINA Date: 12/19/2023 08:03
--- OUTSIDE RECORDS SUMMARY | 2023-12-17 12:50 | XMS_ITS | CCD ---
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 Name Role Phone SHAMMO, DEMETRIA Primary Care [...] Primary Care Unavailable LAKSHMIPATHY ., NARENDRANATH Consulting Vitcorina vailable LAKSHMIPATHY ., NARENDRANATH Attending Victorina vailable [...] Unavailbelen e MD Joseph Tello Attending Provider [phone] MD Joseph Tello Admit Provider ANA MARIA Schwartz Other Provider Unavailable ANA MARIA Conway Other Provider Unavailable ANA MARIA Cheney Other Provider Unavailable ANA MARIA Conley Other Provider Unavailable ANA MARIA Clemente Other Provider Unavailable ANA MARIA Quach Other Provider Unavailable MD Fercho Granados Other Provider DO Elsa Webb Other Provider [phone] MD Amador Swain Other Provider DO Vitaly Lees Other Provider MD Carrillo Escamilla Other Provider [phone] MD Ara Carlin Other Provider MD Benjy Houser Other Provider Unavailable CECY Mata Other Provider [phone] MD Linsey Pradhan Other Provider [phone] MD Antoine Perez Other Provider MD [...] Other Provider DO Vick Dorsey Other Provider [phone] MD Chapin Bell Other Provider [phone] CECY Fuentes Other Provider CECY Chisholm Other Provider MD Taras Dunbar Other Provider MD Rickie Lobo Other Provider DO Jluis Harrell T Other Provider DO Ramez Mock Other Provider MD Rubén Ramirez P Other Provider ANA MARIA Blackwood Other Provider Unavailable Vazquez, COW RIDER Wilda Other Provider MD Van Moore Other [...] (1 source) metroNIDAZOLE Drug Allergy 8 Hives [facility] Ondansetron (1 source) Ondansetron Drug Allergy 1 Itching [facility] (1 source) metroNIDAZOLE Drug Allergy 3 [facility] Repository (8 sources) metroNIDAZOLE; Translations: [METRONIDAZOLE] Drug Allergy 8 Nausea, Hives [facility] (10 sources) Ondansetron; Translations: [ONDANSETRON HCL] Drug Allergy 1 Itching [facility] (4 sources) metroNIDAZOLE; Translations: [METRONIDAZOLE HCL] Drug Allergy 8 Hives [facility] (1 source) metroNIDAZOLE Drug Allergy 4 [facility] Repository Medications Current Medications Medication Drug Class(es) [...] Start: 02-06-2023 take 1 capsule by mo [facility] in the morning DULoxetine 40 mg [...] 12:00am Start: 02-28-2023 [facility] needed [...] Pathology Request for Lab Larry Normal [facility] Comment on above: Order Comment: PATHO LOGY [facility] Result Comment: See report. Scanned copy available in EMR. PERFORMED BY: [place] [id number] [place] [address] PATHOLOGIST BLOCK TRIMMER JANNETTE ROTHMAN M.D. Performed By: #### P ATH TO [facility] #### [facility] [address] [id number] [facility] Large Joint Arthro/Inj: bila teral hip jointson 09-30-2023 Edward Arita DO 09/30/2023 11:44 AM Large Joint Arthro/Inj: bilateral hip joints Informed Consent Consent Obtained: Verbal [place] Protocol A moment to CARE was completed. [...] Plan of Care Visit completed when applicable [facility] US HIP-INJECTION LT (POC) OR I USE ONLYon 09-30-2023 [facility] US HIP-INJECTION RT (POC) OR I USE ONLYon 09-30-2023 [facility] CNOVon 09-03-2023 CNOV Office Visit (LOORRM ) JENNIFER MENDES ([id number]) 1980 F [facility] Date Time Provider Department 09/03/23 8:30 [...] She reports that she moved here from [place] and moved in with her sisters in the last few years but moved into a residential in the last year when she could not get around or do self-care. She is now living in a residential facility. Has significant pain in her back [...] gabapentin and methadone all given at the residential without great pain control. She has done physical therapy as well. She has schizoaffective disorder but otherwise is fairly healthy. She notes that her weight was 268 when she entered the residential but is now 320. Pain level is [...] 4/5 Other (more content not included)... Normal [facility] Large Joint Arthro/Inj: R rani nixon trochanteric bursaon 09-03-2023 Tang Sloan PA-C 09/07/2023 4:29 PM Large Joint Arthro/Inj: R greater trochanteric bursa Informed Consent Consent Obtained: Verbal [place] Protocol A moment to CARE was completed. [...] Third republican verified by Monae Vaca MA. [facility] XR HIP JORGE LUIS 5V PEL+ [...] No fracture. IMPRESSION: SEVERE BILATERAL HIP OSTEOARTHRITIS. Director Funds Development: FAY Transcribe Date/Time: Sep 03 2023 11:04A Dictated by : EVA ZARATE MD This examination was interpreted and the report reviewed and electronically signed by: EVA ZARATE MD on Sep 03 2023 11:05AM EST [id number] Normal [facility] XR HIP BILATERAL 5V PEL/AP/L AT EACH HIPon 09-03-2023 IMPRESSION: SEVERE BILATERAL HIP OSTEOARTHRITIS. Director Funds Development: PSCB Transcribe Date/Time: Sep 03 2023 11:04A [...] pubis. No fracture. DIVISION OF RADIOLOGY Provider, [facility] - 09/03/2023 * * *Final Report* [...] fracture. IMPRESSION IMPRESSION: SEVERE BILATERAL HIP OSTEOARTHRITIS. Director Funds Development: FAY Transcribe Date/Time: Sep 03 2023 11:04A Dictated by : EVA ZARATE MD This examination was interpreted and the report reviewed and electronically signed by: EVA ZARATE MD on Sep 03 2023 11:05AM EST [facility] Radiology Study observation (narrative) Jamar owen [facility] XR HIP BILATERAL 5V PEL/AP/L AT EACH HIPOrdered By: Ccf Provider on 09-03-2023 [facility] Cholesterol [Mass/volume] in Serum or PlasmaOrdered By: Joseph Telol on 06-23-2023 Cholesterol [Mass/Vol] 172 mg/dL Normal 140-200 [facility] Comment on above: Chol less than 200 m g/dl low riskChol 201-239 mg/dl borderline riskChol 240 mg/dl and greater high risk Order Comment: WALDEMARI KEIRY Y Result Comment: Chol less than 200 mg/dl low risk Chol 201-239 mg/dl borderline risk Chol 240 mg/dl and greater high risk Performed By: #### T SH3 wRFLX, LIPID, [id number] #### [facility] [address] Cholesterol in LDL Calc [Mas s/Vol]Ordered By: Joseph Tello on 06-23-2023 Cholesterol in LDL [Mass/Vol] 100 mg/dL 0-100 [facility] Comment on above: LDL ATP III CLASSIFI CATIONLDL less than 100 mg/dL OptimalLDL 100-129 mg/dL Near or above optimalLDL 130-159 mg/dL Borderline highLDL 160-189 mg/dL HighLDL greater than 189 mg/dL Very high Cholesterol in VLDL Calc [Ma ss/Vol]Ordered By: Joseph Tello on 06-23-2023 Cholesterol in VLDL [Mass/Vol] 44 mg/dL [facility] ECG 12 lead ECGon 06-23-2023 ECG 12 lead ECG [facility] [address] [place] [address] [place] [address] Electrocardiograph Report Signed Patient: Jennifer Mendes MR#: [id number] : 1980 Acct:[id number] Age/Sex: 42 / F ADM Date: 06/22/23 Loc: Room: [address] [place] [address] Type: ADM IN Attending Dr: Joseph Tello [...] previous ECGs available Confirmed by Sekou Maciel ([id number]) on 06/23/2023 11:23:15 AM Referred By: Electronically Signed By:Sekou Maciel Transcribed By: MUS Signed By Sekou Maciel MD 06/23/23 1123 Normal [facility] Lipid Panelon 06-23-2023 LDL Cholesterol,Calculated 100 mg/dL Normal 0-100 [facility] Comment on above: Order Comment: ANGELIQUE Ornelas Result Comment: LDL ATP III CLASSIFICATION LDL less than 100 mg/dL Optimal LDL 100-129 mg/dL Near or above optimal LDL 130-159 mg/dL Borderline high LDL 160-189 mg/dL High LDL greater than 189 mg/dL Very high Performed By: #### T SH3 wRFLX, LIPID, [id number] #### [facility] [address] Triglyceride w/Reflex 220 mg/dL High 0-149 [facility] Comment on above: Order Comment: ANGELIQUE Ornelas Result Comment: TRIG ATP III CLASSIFICATION TRIG less than 150 mg/dL Normal TRIG 150-199 mg/dL Borderline high TRIG 200-500 mg/dL High TRIG greater than 500 mg/dL Very high Standard traceable to the Center for Disease Conrtrol and Prevention (CDC) test method. Performed By: #### T SH3 wRFLX, LIPID, [id number] #### [facility] [address] VLDL CHOLESTEROL 44 mg/dL Normal [facility] Comment on above: Order Comment: FASTI NG Y Performed By: #### T SH3 wRFLX, LIPID, [id number] #### [address] Serum or plasma high density lipoprotein (HDL) cholesterol measurementOrdered By: Joseph Tello on 06-23-2023 Cholesterol in HDL [Mass/Vol] 28 mg/dL Normal 23-92 [facility] Comment on above: HDL CHOL ATP-III CLA SSIFICATION Cardiovascular RiskHDL > or equal to 60 mg/dL LOWHDL < 40 mg/dL HIGH Order Comment: FASTI NG Y Result Comment: HDL CHOL ATP-III CLASSIFICATION Cardiovascular Risk HDL > or equal to 60 mg/dL LOW HDL < 40 mg/dL HIGH Performed By: #### T SH3 wRFLX, LIPID, [id number] #### [facility] [address] [place] [address] Serum or plasma total choles terol/high density lipoprotein (HDL) cholesterol mass ratOrdered By: Joseph Tello on 06-23-2023 Cholesterol.total/Cholest mitch in HDL [Mass ratio] 6.1 {ratio} Normal <5.0 [facility] Comment on above: Order Comment: FASTI NG Y Performed By: #### T SH3 wRFLX, LIPID, [id number] #### [facility] [address] Thyroid Stim Hormone w/Rflxo n 06-23-2023 Thyroid Stim Hormone w/Rflx 2.27 u[iU]/mL Normal 0.45-5.33 [facility] Comment on above: Order Comment: FASTI NG Y Performed By: #### T SH3 wRFLX, LIPID, [id number] #### [address] Thyrotropin [Units/volume] i n Serum or PlasmaOrdered By: Joseph Tello on 06-23-2023 TSH Qn 2.27 m[IU]/L 0.45-5.33 [facility] Triglyceride [Mass/volume] i n Serum or PlasmaOrdered By: Joseph Tello on 06-23-2023 Triglyceride [Mass/Vol] 220 mg/dL 0-149 [facility] Comment on above: TRIG ATP III CLASSIF ICATIONTRIG less than 150 mg/dL NormalTRIG 150-199 mg/dL Borderline highTRIG 200-500 mg/dL High TRIG greater than 500 mg/dL Very highStandard traceable to the Center for Disease Conrtrol and Prevention (CDC) test method. Vitamin D 25 Hydroxy Totalon 06-23-2023 Vitamin D 25 Hydroxy Total 13.4 ng/mL Low 30-100 [facility] Comment on above: Order Comment: FASTI NG Y Result Comment: DELVIS MIN D STATUS 25(OH)VITAMIN D RANGE (ng/mL) Deficient <20 Insufficient 20 to <30 Sufficient 30 to 100 Reference: Ricky Phipps, Shan KEARNEY, et al. Evaluation,treatment, and prevention of vitamin D deficiency; an Endocrine Society clinical practice guideline. JCEM. 2010; 96(7):1911-30. PERFORMED BY: [place] [address] PATHOLOGIST BLOCK TRIMMER JANNETTE ROTHMAN M.D. Performed By: #### T SH3 wRFLX, LIPID, [id number] #### [facility] [address] Vitamin D+Metabolites [Mass/ volume] in Serum or PlasmaOrdered By: Joseph Tello on 06-23-2023 Vitamin D+Metabolites [Mass/Vol] 13.4 ng/mL 30-100 [facility] Comment on above: VITAMIN D STATUS 25( [place])VITAMIN D RANGE (ng/mL) Deficient <20 Insufficient 20 to <30Sufficient 30 to 100Reference: Ricky Phipps, Shan KEARNEY, et al. Evaluation,treatment, and prevention of vitamin D deficiency; an Endocrine Society clinical practice guideline. JCEM. 2010; 96(7):1911-30. ACETAMINOPHENon 06-22-2023 Acetaminophen [Mass/Vol] 5.1 ug/mL Low 10.0-30.0 [facility] Comment on above: Result Comment: Refe rence ranges are for therapeutic limits. Performed By: #### C CHANTELL, 4024-6, 5643-2, 3298-7, CBCA #### [facility] ([id number]) [address] [place] [address] CBC AND AUTO DIFFon 06-22-19 ABSOLUTE BASOPHIL 0.2 X10E9/L Normal 0.0-0.2 [facility] Comment on above: Performed By: #### C CHANTELL, 4024-6, 5643-2, 3298-7, CBCA #### [facility] ([id number]) [address] [place] [address] ABSOLUTE NEUTROPHIL 8.5 X10E9/L High 1.5-6.6 [facility] Comment on above: Performed By: #### C CHANTELL, 4024-6, 5643-2, 3298-7, CBCA #### [facility] ([id number]) [address] [place] [address] 83179 Basophils/100 WBC (Bld) 1.5 % Normal [facility] Comment on above: Performed By: #### C CHANTELL, 4024-6, 5643-2, 3298-7, CBCA #### [facility] ([id number]) [address] [place] [address] 42708 Eosinophils (Bld) [#/Vol] 0.9 10*3/uL High 0.0-0.4 [facility] Comment on above: Performed By: #### C CHANTELL, 4024-6, 5643-2, 3298-7, CBCA #### [facility] ([id number]) [address] [place] [address] 84808 Eosinophils/100 WBC (Bld) 6.5 % Normal [facility] Comment on above: Performed By: #### C CHANTELL, 4024-6, 5643-2, 3297-7, CBCA #### [facility] ([id number]) [address] [place] [address] 48368 Erythrocyte distribution width (RBC) [Ratio] 18.1 % High 11.5-15.0 [facility] Comment on above: Performed By: #### C CHANTELL, [facility]6, [facility]-2, 3297-09, CBCA #### [facility] ([id number]) [address] [place] [address] 22444 Hematocrit (Bld) [Volume fraction] 35.5 % Normal 35-47 [facility] Comment on above: Performed By: #### C CHANTELL, [facility], [facility]-2, 3297-09, CBCA #### [facility] ([id number]) [address] [place] [address] 41062 Hemoglobin (Bld) [Mass/Vol] 11.2 g/dL Low 11.7-15.5 [facility] Comment on above: Performed By: #### C CHANTELL, [facility]6, [facility]-2, 32910-12, CBCA #### [facility] ([id number]) [address] [place] [address] 63075 Lymphocytes (Bld) [#/Vol] 3.1 10*3/uL Normal 1.0-3.5 [facility] Comment on above: Performed By: #### C CHANTELL, [facility]-6, 5643-2, 3297-09, CBCA #### [facility] ([id number]) [address] [place] [address] 91524 Lymphocytes/100 WBC (Bld) 22.2 % Normal [facility] Comment on above: Performed By: #### C CHANTELL, 4024-6, 5643-2, 7, CBCA #### [facility] ([id number]) [address] [place] [address] 98735 MCH (RBC) [Entitic mass] 23.1 pg Low 27-34 [facility] Comment on above: Performed By: #### Rene ABDUL, [facility]6, 56-2, 3297-09, CBCA #### [facility] ([id number]) [address] [place] [address] 51054 MCHC (RBC) [Mass/Vol] 31.4 g/dL Low 32-36 [facility] Comment on above: Performed By: #### Rene ABDUL, [facility]6, [facility]-2, 3297-09, CBCA #### [facility] ([id number]) [address] [place] [address] 53298 MCV (RBC) [Entitic vol] 74 fL Low 80-100 [facility] Comment on above: Performed By: #### Rene ABDUL, [facility]-6, [facility]-2, 3297-09, CBCA #### [facility] ([id number]) [address] [place] [address] 53920 Monocytes (Bld) [#/Vol] 1.1 10*3/uL High 0-0.9 [facility] Comment on above: Performed By: #### Rene ABDUL, [facility]-6, 5643-2, 3297-09, CBCA #### [facility] ([id number]) [address] [place] [address] 32629 Monocytes/100 WBC (Bld) 8.0 % Normal [facility] Comment on above: Performed By: #### C CHANTELL, [facility]-6, 5643-2, 3297-09, CBCA #### [facility] ([id number]) [address] [place] [address] 38858 Neutrophils/100 WBC (Bld) 61.8 % Normal [facility] Comment on above: Performed By: #### C CHANTELL, 4024-6, 5643-2, 329-7, CBCA #### [facility] ([id number]) [address] [place] [address] 46692 Platelet mean volume (Bld) [Entitic vol] 7.9 fL Normal 7-12 [facility] Comment on above: Performed By: #### C CHANTELL, 4024-6, 5643-2, 329-, CBCA #### [facility] ([id number]) [address] [place] [address] 32677 Platelets (Bld) [#/Vol] 530 10*3/uL High 150-450 [facility] Comment on above: Performed By: #### C CHANTELL, [facility]-6, 5643-2, 32910-12, CBCA #### [facility] ([id number]) [address] [place] [address] 99544 RBC COUNT 4.82 X10E12/L Normal 3.80-5.20 [facility] Comment on above: Performed By: #### C CHANTELL, 4024-6, 5643-2, 32910-12, CBCA #### [facility] ([id number]) [address] [place] [address] 05751 WBC (Bld) [#/Vol] 13.8 10*3/uL High 4.0-11.0 [facility] Comment on above: Performed By: #### C CHANTELL, 4024-6, 5643-2, 3298-, CBCA #### [facility] ([id number]) [address] [place] [address] 13599 COMPREHENSIVE METABOLIC PANE Jace 06-22-2023 Albumin [Mass/Vol] 3.6 g/dL Normal 3.2-5.3 [facility] Comment on above: Performed By: #### C CHANTELL, 4024-6, 5643-2, 3297-7, CBCA #### [facility] ([id number]) [address] [place] [address] 24975 ALP [Catalytic activity/Vol] 51 U/L Normal 39-130 [facility] Comment on above: Performed By: #### C CHANTELL, 4024-6, 5643-2, 7, CBCA #### [facility] ([id number]) [address] [place] [address] 49774 ALT [Catalytic activity/Vol] 18 U/L Normal 0-31 [facility] Comment on above: Performed By: #### C CHANTELL, 4024-6, 5643-2, 7, CBCA #### [facility] ([id number]) [address] [place] [address] 36386 Anion gap [Moles/Vol] 6 mmol/L Normal 5-15 [facility] Comment on above: Performed By: #### C CHANTELL, 4024-6, 5643-2, 3297-09, CBCA #### [facility] ([id number]) [address] [place] [address] 89125 AST [Catalytic activity/Vol] 14 U/L Normal 0-41 [facility] Comment on above: Performed By: #### C CHANTELL, 4024-6, 5643-2, 3297-09, CBCA #### [facility] ([id number]) [address] [place] [address] 72177 Bilirubin [Mass/Vol] 0.6 mg/dL Normal 0.3-1.2 [facility] Comment on above: Performed By: #### C CHANTELL, 4024-6, 5643-2, 3297, CBCA #### [facility] ([id number]) [address] [place] [address] 09942 Calcium [Mass/Vol] 9.0 mg/dL Normal 8.5-10.5 [facility] Comment on above: Performed By: #### C CHANTELL, 4024-6, 5643-2, 3297-7, CBCA #### [facility] ([id number]) [address] [place] [address] 97677 Chloride [Moles/Vol] 104 mmol/L Normal 98-109 [facility] Comment on above: Performed By: #### C CHANTELL, 4024-6, 5643-2, 7, CBCA #### [facility] ([id number]) [address] [place] [address] 76466 CO2 [Moles/Vol] 26 mmol/L Normal 22-32 [facility] Comment on above: Performed By: #### C CHANTELL, 4024-6, 5643-2, 3297-09, CBCA #### [facility] ([id number]) [address] [place] [address] 53151 Creatinine [Mass/Vol] 0.84 mg/dL Normal 0.40-1.00 [facility] Comment on above: Result Comment: METH OD TRACEABLE TO IDMS STANDARD Performed By: #### C CHANTELL, 4024-6, 5643-2, 3297, CBCA #### [facility] ([id number]) [address] [place] [address] 26566 GFR/1.73 sq M.predicted among non-blacks MDRD (S/P/Bld) [Vol rate/Area] 88 mL/min/{1.73_m2} Normal >59 [facility] Comment on above: Result Comment: Reported eGFR is based on the CKD-EPI 2020 equation that does not use a race coefficient. Performed By: #### C CHANTELL, 4024-6, 5643-2, 3298-7, CBCA #### [facility] ([id number]) [address] [place] [address] Glucose [Mass/Vol] 96 mg/dL Normal 65-99 [facility] Comment on above: Performed By: #### C CHANTELL, 4024-6, 5643-2, 3298-7, CBCA #### [facility] ([id number]) [address] [place] [address] 94960 Potassium [Moles/Vol] 3.9 mmol/L Normal 3.5-5.0 [facility] Comment on above: Performed By: #### C CHANTELL, 4024-6, 5643-2, 3298-7, CBCA #### [facility] ([id number]) [address] [place] [address] 12722 Protein [Mass/Vol] 8.0 g/dL Normal 6.0-8.0 [facility] Comment on above: Performed By: #### C CHANTELL, 4024-6, 5643-2, 3297, CBCA #### [facility] ([id number]) [address] [place] [address] 24680 Sodium [Moles/Vol] 136 mmol/L Normal 134-146 [facility] Comment on above: Performed By: #### C CHANTELL, 4024-6, 5643-2, 3298-7, CBCA #### [facility] ([id number]) [address] [place] [address] 30565 Urea nitrogen [Mass/Vol] 21 mg/dL Normal 5-23 [facility] Comment on above: Performed By: #### C CHANTELL, 4024-6, 5643-2, 3298-7, CBCA #### [facility] ([id number]) [address] [place] [address] 10387 DRUG SCREEN, URINEon 024 AMPHETAMINE/METHAMP Negative Normal NEG [facility] Comment on above: Result Comment: AMPH /METH screening cut off = 1000 ng/mL Performed By: #### D CRUZ #### [facility] ([id number]) [address] [place] [address] 28814 BARBITURATES Negative Normal NEG [facility] Comment on above: Result Comment: Ella iturates screening cut off value = 200 ng/mL Performed By: #### D CRUZ #### [facility] ([id number]) [address] [place] [address] 86268 BENZODIAZEPINES Negative Normal NEG [facility] Comment on above: Result Comment: Feng odiazepines screening cut off value = 200 ng/mL Performed By: #### D CRUZ #### [facility] ([id number]) [address] [place] [address] 80845 CANNABINOIDS Positive Abnormal NEG [facility] Comment on above: Result Comment: Conf irmation available upon request. Cannabinoids/THC screening cut off value = 50 ng/mL Performed By: #### D CRUZ #### [facility] ([id number]) [address] [place] [address] 42078 COCAINE METABOLITE Negative Normal NEG [facility] Comment on above: Result Comment: Coca ine screening cut off value = 300 ng/mL Performed By: #### D CRUZ #### [facility] ([id number]) [address] [place] [address] 00375 ECSTASY Negative Normal NEG [facility] Comment on above: Result Comment: Ecst asy screening cut off value = 500 ng/mL This report is intended for use in clinical monitoring or management of patients. Performed By: #### D CRUZ #### [facility] ([id number]) [address] [place] [address] 89402 METHADONE Negative Normal NEG [facility] Comment on above: Result Comment: Meth adone screening cut off value = 300 ng/mL. Performed By: #### D CRUZ #### [facility] ([id number]) [address] [place] [address] 16957 OPIATES Negative Normal NEG [facility] Comment on above: Result Comment: Opia alesha screening cut off value = 300 ng/mL NOTE: This test is used for the detection of codeine, hydrocodone (>1000 ng/mL), morphine and hydromorphone (>900 ng/mL) in urine. Performed By: #### D CRUZ #### [facility] ([id number]) [address] [place] [address] OXYCODONE Positive Abnormal NEG [facility] Comment on above: Result Comment: Conf irmation available upon request. Oxycodone screening cut off value = 300 ng/mL NOTE: This test is used for the detection of oxycodone and oxymorphone in urine. Performed By: #### D CRUZ #### [facility] ([id number]) [address] [place] [address]65 PHENCYCLIDINE Negative Normal NEG [facility] Comment on above: Result Comment: Phen cyclidine screening cut off value = 25 ng/mL Performed By: #### D CRUZ #### [facility] ([id number]) [address] [place] [address] 53027 ETHANOLon 06-22-2023 Ethanol [Mass/Vol] mg/dL Normal 0.00-0.08 [facility] Comment on above: Result Comment: This report is intended for use in clinical monitoring or management of patients. Performed By: #### C MP, 4024-6, 5643-2, 3298-7, CBCA #### [facility] ([id number]) [address] [place] [address] 24119 HCG ( test) Ql (U)o n 06-22-2023 Beta HCG ( test) Ql (U) Negative Normal NEG [facility] Comment on above: Performed By: #### 2 106-3 #### [facility] ([id number]) [address] [place] [address] 10947 Salicylates [Mass/Vol]on SALICYLATE <4.0 Normal 2.0-25.0 [facility] Comment on above: Result Comment: Refe rence ranges are for therapeutic limits. Performed By: #### C MP, 4024-6, 5643-2, 3298-7, CBCA #### [facility] ([id number]) [address] [place] [address] 49351 URN MACROSCOPIC NURon 2023 BILIRUBIN [place] Negative Normal NEG [facility] Comment on above: Performed By: #### N UM #### [facility] ([id number]) [address] [place] [address] 08903 BLOOD/HGB [place] Trace Abnormal NEG [facility] Comment on above: Performed By: #### N UM #### [facility] ([id number]) [address] [place] [address] [place] [address] GLUCOSE [place] Negative Normal NEG [facility] Comment on above: Performed By: #### N UM #### [facility] ([id number]) [address] [place] [address] [place] [address] KETONES [place] Negative Normal NEG [facility] Comment on above: Performed By: #### N UM #### [facility] ([id number]) [address] [place] [address] [place] [address] LEUKOCYTE ESTERASE [place] MODERATE Abnormal NEG [facility] Comment on above: Performed By: #### N UM #### [facility] ([id number]) [address] [place] [address] [place] [address] NITRITE [place] Negative Normal NEG [facility] Comment on above: Performed By: #### N UM #### [facility] ([id number]) [address] [place] [address] [place] [address] PH [place] 5.0 Normal 5.0-8.5 [facility] Comment on above: Performed By: #### N UM #### [facility] ([id number]) [address] [place] [address] PROTEIN [place] Negative Normal NEG [facility] Comment on above: Performed By: #### N UM #### [facility] ([id number]) [address] [place] [address] 12688 SPECIFIC GRAVITY [place] 1.015 Normal 1.003-1.[address] [facility] Comment on above: Performed By: #### N UM #### [facility] ([id number]) [address] [place] [address] 16694 UROBILINOGEN [place] 0.2 eu/dL Normal <1.1 [facility] Comment on above: Performed By: #### N UM #### [facility] ([id number]) [address] [place] [address] 25153 PAP ACOG PANEL 2: 30 to 65on 06-03-2022 . . Normal [facility] Comment on above: Result Comment: Perf ormed at: WB Performed By: #### 4 [id number] #### [facility] [address] [place] [address] Dr. Dustin Hoover Age Gdln ACOG Testing 30-65 Normal [facility] Comment on above: Performed By: #### 4 [id number] #### [facility] [address] [place] [address] Dr. Dustin Hoover DIAGNOSIS: Comment Abnormal [facility] Comment on above: Result Comment: EPIT HELIAL CELL ABNORMALITY. ATYPICAL SQUAMOUS CELLS OF UNDETERMINED SIGNIFICANCE (ASC-US). TRICHOMONAS VAGINALIS IS PRESENT. Performed at: WB Performed By: #### 4 [id number] #### [facility] [address] [address] [address] Dustin Hoover Electronically signed by: Comment Normal [facility] Comment on above: Result Comment: Andreia López MD, Pathologist Performed at: WB Performed By: #### 4 [id number] #### [facility] [address] [address] [address] Dustin Hoover HPV Aptima Negative Normal Negative [facility] Comment on above: Result Comment: This nucleic acid amplification test detects fourteen high-risk HPV types (16,18,31,33,35,39,45,51,52,56,58,59,66,68) without differentiation. Performed at: =G Performed By: #### 4 [id number] #### [facility] [address] [place] [address] Dr. Dustin Hoover HPV Genotype Reflex Comment Normal [facility] Comment on above: Result Comment: Crit eria not met, HPV Genotype not performed. Performed at: WB Performed By: #### 4 [id number] #### [facility] [address] [place] [address] Dr. Dustin Hoover Methodology: Comment Normal [facility] Comment on above: Result Comment: This liquid based ThinPrep(R) pap test was screened with the use of an image guided system. Performed at: WB Performed By: #### 4 [id number] #### [facility] [address] [place] [address] Dr. Dustin Hoover Note: Comment Normal [facility] Comment on above: Result Comment: The Pap smear is a screening test designed to aid in the detection of premalignant and malignant conditions of the uterine cervix. It is not a diagnostic procedure and should not be used as the sole means of detecting cervical cancer. Both false-positive and false-negative reports do occur. . Performed at: WB Performed By: #### 4 [id number] #### [facility] [address] [place] [address] Dr. Dustin Hoover Pathologist Provided ICD10 Comment Normal [facility] Comment on above: Result Comment: R87. 610, R87.5 Performed at: WB Performed By: #### 4 [id number] #### [facility] [address] [place] [address] Dr. Dustin Hoover Performed by: Comment Normal [facility] Comment on above: Result Comment: Bernadette Tucker, Recovery Rn (ASCP) Performed at: WB Performed By: #### 4 [id number] #### [facility] [address] [place] [address] Dr. Dustin Hoover Recommendation: Comment Abnormal [facility] Comment on above: Result Comment: Sugg est follow up as clinically appropriate. Performed at: WB Performed By: #### 4 [id number] #### [facility] [address] [place] [address] Dr. Dustin Hoover Specimen adequacy: Comment Normal [facility] Comment on above: Result Comment: Sati sfactory for evaluation. Endocervical and/or squamous metaplastic cells (endocervical component) are present. Performed at: WB Performed By: #### 4 [id number] #### [facility] [address] [place] [address] Dr. Dustin Hoover LIPID PROFILEon 05-28-2022 CHOL-HDL RATIO NORM SEE BELOW Normal [facility] Comment on above: Result Comment: 3.3 - 4.4 LOW RISK 4.4 - 7.1 AVERAGE RISK 7.1 - 11.0 MODERATE RISK >11.0 HIGH RISK Performed By: #### P TT, PT #### [facility] [address] [place] [address] Dr. Dustin Hoover Cholesterol [Mass/Vol] 180 mg/dL Normal <=200 Th [facility] Comment on above: Performed By: #### P TT, PT #### [facility] [address] [place] [address] Dr. Dustin Hoover Cholesterol in HDL [Mass/Vol] 32 mg/dL Critically low 40-60 [facility] Comment on above: Performed By: #### P TT, PT #### [facility] [address] [address] [address] Dustin Hoover Cholesterol in LDL [Mass/Vol] 108.6 mg/dL Normal [facility] Comment on above: Performed By: #### P TT, PT #### [facility] [address] [place] [address] Dr. Dustin Hoover Cholesterol.total/Cholest mitch in HDL [Mass ratio] 5.6 {ratio} Normal [facility] Comment on above: Performed By: #### P TT, PT #### [facility] [address] [place] [address] Dr. Dustin Hoover HDL NORMAL > or = 60 mg/dl - LO W CARDIOVASCULAR RISK <40 mg/dl - HIGH CARDIOVASCULAR RISK Normal [facility] Comment on above: Performed By: #### P TT, PT #### [facility] [address] [address] [address] Dustin Hoover LDL CALC NORMAL SEE BELOW Normal [facility] Comment on above: Result Comment: <100 mg/dl OPTIMAL 100 - 129 mg/dl NEAR OR ABOVE OPTIMAL 130 - 159 mg/dl BORDERLINE HIGH 160 - 189 mg/dl HIGH >190 mg/dl VERY HIGH Performed By: #### P TT, PT #### [facility] [address] [address] [address] Dustin Hoover Triglyceride [Mass/Vol] 197 mg/dL Critically high <=150 [facility] Comment on above: Performed By: #### P TT, PT #### [facility] [address] [address] [address] Dustin Hoover VLDL CALC 39.4 mg/dL Normal [facility] Comment on above: Performed By: #### P TT, PT #### [facility] [address] [address] [address] Dustin Hoover MG MAMM SCREEN 3D JORGE LUIS CADon 05-28-2022 MG MAMM SCREEN 3D JORGE LUIS CAD Patient: JENNIFER MANZANO Exam Date: 05/28/2022 : 1980 Gender:F Ordering : DEMETRIA PHILLIPS Admission #: [id number] Family : Order #: [id number] CLICK HERE TO VIEW EXAM RADIOLOGY REPORT [...] breast cancer at age 64. LOCATION: [facility] BREAST COMPOSITION: Almost entirely fatty. [...] Medina M.D. on 05/28/2022 at 13:16 Normal [facility] PROF 14(COMP METB)on 023 Albumin [Mass/Vol] 3.3 g/dL Critically low 3.4-5.0 [facility] Comment on above: Performed By: #### P TT, PT #### [facility] [address] [address] [address] Dustin Hoover Albumin/Globulin [Mass ratio] 0.9 {ratio} Normal [facility] Comment on above: Performed By: #### P TT, PT #### [facility] [address] [place] [address] Dr. Dustin Hoover ALP [Catalytic activity/Vol] 54 U/L Normal 46-116 [facility] Comment on above: Performed By: #### P TT, PT #### [facility] [address] [place] [address] Dr. Dustin Hoover ALT [Catalytic activity/Vol] 18 U/L Normal 14-59 [facility] Comment on above: Performed By: #### P TT, PT #### [facility] [address] [address] [address] Dustin Hoover Anion gap [Moles/Vol] 10.8 mmol/L Normal [facility] Comment on above: Performed By: #### P TT, PT #### [facility] [address] [place] [address] Dr. Dustin Hoover AST [Catalytic activity/Vol] 11 U/L Critically low 15-37 [facility] Comment on above: Performed By: #### P TT, PT #### [facility] [address] [place] [address] Dr. Dustin Hoover Bilirubin [Mass/Vol] 0.3 mg/dL Normal 0.2-1.0 [facility] Comment on above: Performed By: #### P TT, PT #### [facility] [address] [place] [address] Dr. Dustin Hoover Calcium [Mass/Vol] 8.5 mg/dL Normal 8.5-10.1 [facility] Comment on above: Performed By: #### P TT, PT #### [facility] [address] [place] [address] Dr. Dustin Hoover Chloride [Moles/Vol] 105 mmol/L Normal 98-107 [facility] Comment on above: Performed By: #### P TT, PT #### [facility] [address] [place] [address] Dr. Dustin Hoover CO2 [Moles/Vol] 26.2 mmol/L Normal 21.0-32.0 [facility] Comment on above: Performed By: #### P TT, PT #### [facility] [address] [place] [address] Dr. Dustin Hoover Creatinine [Mass/Vol] 0.61 mg/dL Normal 0.55-1.02 [facility] Comment on above: Performed By: #### P TT, PT #### [facility] [address] [place] [address] Dr. Dustin Hoover EGFR-AF WELSH >60 Normal >=60 [facility] Comment on above: Performed By: #### P TT, PT #### [facility] [address] [place] [address] Dr. Dustin Hoover EGFR-NON AF WELSH >60 Normal >=60 [facility] Comment on above: Performed By: #### P TT, PT #### [facility] [address] [place] [address] Dr. Dustin Hoover Globulin (S) [Mass/Vol] 3.7 g/dL Normal T [facility] Comment on above: Performed By: #### P TT, PT #### [facility] [address] [place] [address] Dr. Dustin Hoover Glucose [Mass/Vol] 99 mg/dL Normal 74-106 [facility] Comment on above: Performed By: #### P TT, PT #### [facility] [address] [place] [address] Dr. Dustin Hoover Potassium [Moles/Vol] 4.0 mmol/L Normal 3.5-5.1 [facility] Comment on above: Performed By: #### P TT, PT #### [facility] [address] [place] [address] Dr. Dustin Hoover Protein [Mass/Vol] 7.0 g/dL Normal 6.4-8.2 [facility] Comment on above: Performed By: #### P TT, PT #### [facility] [address] [place] [address] Dr. Dustin Hoover Sodium [Moles/Vol] 138 mmol/L Normal 136-145 [facility] Comment on above: Performed By: #### P TT, PT #### [facility] [address] [place] [address] Dr. Dustin Hoover Urea nitrogen [Mass/Vol] 8.0 mg/dL Normal 7.0-18.0 [facility] Comment on above: Performed By: #### P TT, PT #### [facility] [address] [place] [address] Dr. Dustin Hoover Urea nitrogen/Creatinine [Mass ratio] 13.1 mg/mg Normal [facility] Comment on above: Performed By: #### P TT, PT #### [facility] [address] [place] [address] Dr. Dustin Hoover PROTIMEon 05-28-2022 INR Coag (PPP) [Relative time] 0.97 {INR} Normal [facility] Comment on above: Performed By: #### P TT, PT #### [facility] [address] [place] [address] Dr. Dustin Hoover INR GUIDELINES SEE BELOW Normal [facility] Comment on above: Result Comment: MARIA DOLORES RED INR: 2.0 - 3.0 CONDITIONS NOT LISTED BELOW 2.5 - 3.5 FOR PROSTHETIC HEART VALVE REPLACEMENT 2.5 - 3.5 RECURRENT THROMBOSIS Performed By: #### P TT, PT #### [facility] [address] [place] [address] Dr. Dustin Hoover PT Coag (PPP) [Time] 10.3 s Normal 9.0-11.6 [facility] Comment on above: Performed By: #### P TT, PT #### [facility] [address] [place] [address] Dr. Dustin Hoover PTTon 05-28-2022 aPTT Coag (Bld) [Time] 26.9 s Normal 22.3-36.2 Th e [facility] Comment on above: Performed By: #### P TT, PT #### [facility] [address] [place] [address] Dr. Dustin Hoover CHLAMYDIA/GONOCOCCUS QUENTIN (SW AB/URINE/PAPon 05-27-2022 Chlamydia trachomatis, QUENTIN Negative Normal Negative [facility] Comment on above: Performed By: #### P TT, PT #### [facility] [address] [place] [address] Dr. Dustin Hoover Neisseria gonorrhoeae, QUENTIN Negative Normal Negative [facility] Comment on above: Performed By: #### P TT, PT #### [facility] [address] [place] [address] Dr. Dustin Hoover DHEA SERUMon 05-27-2022 Dehydroepiandrosterone (DHEA) 382 ng/dL Normal 31-701 [facility] Comment on above: Performed By: #### P TT, PT #### [facility] [address] [place] [address] Dr. Dustin Hoover VAGINITIS/VAGINOSIS DNA PROB Michael 05-27-2022 Catherine species Negative Normal Negative [facility] Comment on above: Performed By: #### V AGINT #### [facility] [address] [place] [address] Dr. Dustin Hoover Gardnerella vaginalis Positive Abnormal Negative [facility] Comment on above: Performed By: #### V AGINT #### [facility] [address] [place] [address] Dr. Dustin Hoover Trichomonas vaginalis Positive Abnormal Negative [facility] Comment on above: Performed By: #### V AGINT #### [facility] [address] [place] [address] Dr. Dustin Hoover DHEA-SULFATEon 05-26-2022 DHEA-Sulfate 48.3 ug/dL Critically low 57.3-279.2 [facility] Comment on above: Performed By: #### D CALLIEUL #### [facility] [address] [place] [address] Dr. Dustin Hoover FSHon 05-26-2022 FSH 14.7 mIU/mL Normal [facility] Comment on above: Result Comment: Adul t Female: Follicular phase 3.5 - 12.5 Ovulation phase 4.7 - 21.5 Luteal phase 1.7 - 7.7 Postmenopausal 25.8 - 134.8 Performed By: #### P TT, PT #### [facility] [address] [address] [address] Dustin Hoover HEPATITIS PANEL, ACUTEon HBsAg Screen Negative Normal Negative [facility] Comment on above: Performed By: #### H EPACUT #### [facility] [address] [place] [address] Dr. Dustin Hoover HCV AB Non-Reactive Normal Non Reactive [facility] Comment on above: Performed By: #### H EPACUT #### [facility] [address] [address] [address] Dustin Hoover Hep A Ab, IgM Negative Normal Negative [facility] Comment on above: Performed By: #### H EPACUT #### [facility] [address] [address] [address] Dustin Hoover Hep B Core Ab, IgM Negative Normal Negative [facility] Comment on above: Performed By: #### H EPACUT #### [facility] [address] [address] [address] Dustin Hoover Interpretation: Comment Normal [facility] Comment on above: Result Comment: Not infected with HCV unless early or acute infection is suspected (which may be delayed in an immunocompromised individual), or other evidence exists to indicate HCV infection. Performed By: #### H EPACUT #### [facility] [address] [place] [address] Dr. Dustin Hoover HIV 1 AND 2 WITH REFLEXon HIV Screen 4th Generation wRfx Non-Reactive Normal Non Reactive [facility] Comment on above: Result Comment: HIV Negative HIV-1/HIV-2 antibodies and HIV-1 p24 antigen were NOT detected. There is no laboratory evidence of HIV infection. Performed By: #### H IV12 #### [facility] [address] [place] [address] Dr. Dustin Hoover LUTEINIZING HORMONE (LH)on 0 05-26-2022 LH 41.0 mIU/mL Normal [facility] Comment on above: Result Comment: Adul t Female: Follicular phase 2.4 - 12.6 Ovulation phase 14.0 - 95.6 Luteal phase 1.0 - 11.4 Postmenopausal 7.7 - 58.5 Performed By: #### L BCLH #### [facility] [address] [place] [address] Dr. Dustin Hoover RPR QUANTon 05-26-2022 Rapid Plasma Reagin, Quant Non-Reactive Normal NonRea<1:1 [facility] Comment on above: Result Comment: Plea se Note: This test does not meet current guidelines for screening and diagnosis of syphilis. This test is intended for following treatment response in patients being treated for syphilis infection. To screen for syphilis infection, a reflex cascade that includes both RPR and a treponema-specific assay should be utilized, such as Treponema pallidum (Syphilis) Screening [place] (059925) or Rapid Plasma Reagin (RPR) Test With Reflex to Quantitative RPR and Confirmatory Treponema pallidum Antibodies (020568). Performed By: #### P TT, PT #### [facility] [address] [place] [address] Dr. Dustin Hoover CBC AUTO DIFFon 05-25-2022 BASO # 0.1 103/ul Normal 0.0-0.1 [facility] Comment on above: Performed By: #### C BC #### [facility] [address] [place] [address] Dr. Dustni Hoover Basophils/100 WBC (Bld) 0.7 % Normal 0.2-2.[address] [facility] Comment on above: Performed By: #### C BC #### [facility] [address] [place] [address] Dr. Dustin Hoover EO # 0.5 103/ul Normal 0.0-0.7 [facility] Comment on above: Performed By: #### C BC #### [facility] [address] [place] [address] Dr. Dustin Hoover Eosinophils/100 WBC (Bld) 2.6 % Normal 0.9-7.0 [facility] Comment on above: Performed By: #### C BC #### [facility] [address] [place] [address] Dr. Dustin Hoover Erythrocyte distribution width (RBC) [Ratio] 17.2 % Critically high 11.0-15.0 [facility] Comment on above: Performed By: #### C BC #### [facility] [address] [place] [address] Dr. Dustin Hoover Hematocrit (Bld) [Volume fraction] 39.7 % Normal 36.0-48.0 [facility] Comment on above: Performed By: #### C BC #### [facility] [address] [place] [address] Dr. Dustin Hoover Hemoglobin (Bld) [Mass/Vol] 12.4 g/dL Normal 12.0-16.0 [facility] Comment on above: Performed By: #### C BC #### [facility] [address] [place] [address] Dr. Dustin Hoover IG # 0.13 10e3/ul Critically high 0.00-0.03 [facility] Comment on above: Performed By: #### C BC #### [facility] [address] [place] [address] Dr. Dustin Hoover IG % 0.7 % Critically high 0.0-0.5 [facility] Comment on above: Performed By: #### C BC #### [facility] [address] [place] [address] Dr. Dustin Hoover LYMPH # 4.1 103/ul Critically high 1.2-3.8 [facility] Comment on above: Performed By: #### C BC #### [facility] [address] [place] [address] Dr. Dustin Hoover Lymphocytes/100 WBC (Bld) 22.9 % Normal 20.5-60.0 [facility] Comment on above: Performed By: #### C BC #### [facility] [address] [place] [address] Dr. Dustin Hoover MANUAL DIFF REQ NO Normal [facility] Comment on above: Performed By: #### C BC #### [facility] [address] [place] [address] Dr. Dustin Hoover MCH (RBC) [Entitic mass] 23.8 pg Critically low 26.7-34 .0 [facility] Comment on above: Performed By: #### C BC #### [facility] [address] [place] [address] Dr. Dustin Hoover MCHC (RBC) [Mass/Vol] 31.2 g/dL Normal 29.9-35.2 [facility] Comment on above: Performed By: #### C BC #### [facility] [address] [place] [address] Dr. Dustin Hoover MCV (RBC) [Entitic vol] 76.2 fL Critically low 81.0-99. 0 [facility] Comment on above: Performed By: #### C BC #### [facility] [address] [place] [address] Dr. Dustin Hoover MONO # 1.3 103/ul Critically high 0.3-0.8 [facility] Comment on above: Performed By: #### C BC #### [facility] [address] [place] [address] Dr. Dustin Hoover Monocytes/100 WBC (Bld) 7.0 % Normal 1.7-12.0 [facility] Comment on above: Performed By: #### C BC #### [facility] [address] [place] [address] Dr. Dustin Hoover NEUT # 11.9 103/ul Critically high 1.4-6.5 [facility] Comment on above: Performed By: #### C BC #### [facility] [address] [place] [address] Dr. Dustin Hoover Neutrophils/100 WBC (Bld) 66.1 % Normal 43.0-75.0 [facility] Comment on above: Performed By: #### C BC #### [facility] [address] [place] [address] Dr. Dustin Hoover Platelet mean volume (Bld) [Entitic vol] 10.1 fL Normal 9.5-13.5 [facility] Comment on above: Performed By: #### C BC #### [facility] [address] [place] [address] Dr. Dustin Hoover PLT 499 103/ul Critically high 150-450 [facility] Comment on above: Performed By: #### C BC #### [facility] [address] [place] [address] Dr. Dustin Hoover RBC 5.21 106/ul Normal 4.20-5.40 [facility] Comment on above: Performed By: #### C BC #### [facility] [address] [place] [address] Dr. Dustin Hoover WBC 18.0 103/ul Critically high 4.0-11.0 [facility] Comment on above: Performed By: #### C BC #### [facility] [address] [place] [address] Dr. Dustin Hoover FREE T4on 05-25-2022 Free T4 [Mass/Vol] 0.82 ng/dL Normal 0.76-1.46 [facility] Comment on above: Performed By: #### P TT, PT #### [facility] [address] [place] [address] Dr. Dustin Hoover GLYCOHEMOGLOBIN A1Con 2022 ADA RECOMMENDATION SEE BELOW Normal [facility] Comment on above: Result Comment: ADA RECOMMENDED LIMIT 4.0 - 6.0 ADA THERAPEUTIC TARGET < 7.0 ACTION SUGGESTED > 7.0 Performed By: #### A 1C #### [facility] [address] [place] [address] Dr. Dustin Hoover Glucose [Mass/Vol] 108 mg/dL Normal [facility] Comment on above: Performed By: #### A 1C #### [facility] [address] [place] [address] Dr. Dustin Hoover HbA1c (Bld) [Mass fraction] 5.4 % Normal 4.5-6.2 [facility] Comment on above: Performed By: #### A 1C #### [facility] [address] [place] [address] Dr. Dustin Hoover PREG QUANT HCGon 05-25-2022 HCG QUANT 1 mIU/mL Normal [facility] Comment on above: Performed By: #### P TT, PT #### [facility] [address] [place] [address] Dr. Dustin Hoover HCG RANGE SEE BELOW Normal [facility] Comment on above: Result Comment: 5-50 0.2-1 WEEK 50-500 1-2 WEEKS 100-5,000 2-3 WEEKS 500-10,000 3-4 WEEKS 1,000-50,000 4-5 WEEKS 10,000-100,000 5-6 WEEKS 15,000-200,000 6-8 WEEKS 10,000-100,000 2-3 MONTHS Performed By: #### P TT, PT #### [facility] [address] [place] [address] Dr. Dustin Hoover TSHon 05-25-2022 TSH 2.768 uIU/mL Normal 0.358-3.740 [facility] Comment on above: Performed By: #### P TT, PT #### [facility] [address] [place] [address] Dr. Dustin Hoover Vital Signs Date Time Vital Sign Value Performing Clinician Facility 06-25-2023 15:14-0400 Body temperature 98.1 [degF] [facility] 06-25-2023 15:14-0400 Diastolic blood pressure 88 mm[Hg] [facility] 06-25-2023 15:14-0400 Heart rate 105 /min [facility] 06-25-2023 15:14-0400 Respiratory rate 18 /min [facility] 06-25-2023 15:14-0400 SaO2% (BldA) [Mass fraction] 95 % [facility] 06-25-2023 15:14-0400 Systolic blood pressure 119 mm[Hg] [facility] 06-23-2023 14:22-0400 Body height 157.48 cm [facility] 06-22-2023 22:00-0400 Body weight 147.41 kg [facility] 06-03-2023 21:42-0400 Body mass index (BMI) [Ratio] 59.55 kg/m2 Butch Furlong DO Work Phone: [facility] [employer] [facility] 06-03-2023 21:42-0400 Body weight 147.69 kg Butch Furlong DO Work Phone: [facility] [employer] [facility] 05-28-2023 18:56-0400 Body mass index (BMI) [Ratio] 61.16 kg/m2 Butch Furlong DO Work Phone: [facility] [employer] [facility] 05-28-2023 18:56-0400 Body weight 151.68 kg Butch Furlong DO Work Phone: [facility] [employer] 05-28-2023 18:56-0400 Diastolic blood pressure 68 mm[Hg] But[facility] Furlong [facility] 05-28-2023 18:56-0400 Heart rate 71 /min Butch Furlong DO Work [facility] 05-28-2023 18:56-0400 Systolic blood pressure 104 mm[Hg] Butch Furlong DO Work Phone: [facility] [employer] [facility] 05-18-2023 19:08-0400 Body mass index (BMI) [Ratio] 60.36 kg/m2 Megan Cash ART HISTORY INSTRUCTOR-[employer] Work Phone: [facility] 05-18-2023 19:08-0400 Body temperature 98.01 [degF] Megan Cash ART HISTORY INSTRUCTOR-[employer] [facility]: [facility] 05-18-2023 19:08-0400 Body weight 149.69 kg Megan Cash ART HISTORY INSTRUCTOR-[employer] Work Phone: [facility] [employer] [facility] 05-18-2023 19:08-0400 Diastolic blood pressure 68 mm[Hg] Megan JEWELL Work Phone: [facility] 05-18-2023 19:08-0400 Heart rate 71 /min Megan JEWELL Work Phone: [facility] 05-18-2023 19:08-0400 Respiratory rate 18 /min Megan JEWELL Work Phone: [facility] 05-18-2023 19:08-0400 SaO2% (BldA) [Mass fraction] 98 % Megan JEWELL Work Phone: [facility] 05-18-2023 19:08-0400 Systolic blood pressure 104 mm[Hg] eMgan JEWELL Work Phone: [facility] 05-14-2023 18:39-0500 Body mass index (BMI) [Ratio] 57.5 kg/m2 Butch Furlong DO Work [facility] 05-14-2023 18:39-0500 Body temperature 97.59 [degF] Butch Furlong DO [facility] 05-14-2023 18:39-0500 Body weight 142.61 kg Butch Furlong DO Work Phone: [facility] 05-14-2023 18:39-0500 Diastolic blood pressure 68 mm[Hg] Butch Furlong DO [facility] 05-14-2023 18:39-0500 Heart rate 90 /min Butch Furlong DO Work Phone: [facility] 05-14-2023 18:39-0500 Respiratory rate 18 /min Butch Furlong DO Work [facility] 05-14-2023 18:39-0500 SaO2% (BldA) [Mass fraction] 98 % Butch Furlong DO Work Phone: [employer] 05-14-2023 18:39-0500 Systolic blood pressure 110 mm[Hg] Butch Furlong DO Work [facility] 04-30-2023 17:38-0500 Body height 157.5 cm Butch Furlong DO [facility] 04-30-2023 17:38-0500 Body mass index (BMI) [Ratio] 56.53 kg/m2 But[facility] 04-30-2023 17:38-0500 Body temperature 97.81 [degF] Butch Furlong DO Work [facility] 04-30-2023 17:38-0500 Body weight 140.2 kg Butch Furlong DO Work [facility] 04-30-2023 17:38-0500 Diastolic blood pressure 62 mm[Hg] Butch Furlong DO [facility] 04-30-2023 17:38-0500 Heart rate 106 /min Butch Furlong DO Work [facility] 04-30-2023 17:38-0500 Respiratory rate 20 /min Butch Furlong DO [facility] 04-30-2023 17:38-0500 SaO2% (BldA) [Mass fraction] 91 % Butch Furlong DO Work [facility] 04-30-2023 17:38-0500 Systolic blood pressure 99 mm[Hg] Butch Furlong DO Work Phone: [facility] Encounters Encounter Date Encounter Type Care Provider Facility Start: 10-22-2023 End: 10-22-2023 ambulatory NON STAFF [facility] Work Phone: Start: 10-22-2023 End: 10-22-2023 Departed Referred [facility] Start: 09-30-2023 End: 09-30-2023 Patient encounter procedure Edward Arita DO Work Phone: Orthopaedics Comment on above: Primary osteoarthrit is of both hips (Primary Dx) Start: 09-22-2023 End: 09-22-2023 ambulatory MAZIN ROSITA Not Available Start: 09-20-2023 End: 09-20-2023 ambulatory MAZIN ROSITA Not Available Start: 09-03-2023 End: 09-03-2023 ambulatory uJly Morrison RT(R) Radiology Comment on above: Radiology [...] Not Available Start: 07-08-2023 End: 07-08-2023 ambulatory [facility] Start: 2023 End: 2023 ambulatory TRAV VALDOVINOS Not Available Start: 06-23-2023 Non-patient / Non-visit [facility] Work Phone: Start: 06-22-2023 End: 06-25-2023 Evaluation and management of inpatient [facility] Work Phone: Start: 06-22-2023 End: 06-22-2023 Emergency department patient visit BUTCH Jane OLIVA [facility] Start: 06-22-2023 ambulatory Joseph Mcneil acility:[facility] Start: 06-03-2023 ambulatory Butch robins DO Work [...] present Start: 05-18-2023 Continuing Care Megan ga APRN-P[employer]CH MACHINE [employer] Work Phone: [facility] [...] both hips; TB lung, latent; Schizophrenic disorder ([facility]); Class 3 severe obesity due to excess calories without serious comorbidity with body mass index (BMI) of 50.0 to 59.9 in adult ([facility]) Start: 04-26-[address] [facility] Start: 07-23-2022 ambulatory DEMETRIA SHAMMO Facility:H 1 Start: 06-30-2022 ambulatory DEMETRIA SHAMMO Facility:H 1 Start: 06-16-2022 End: 06-17-2022 ambulatory DEMETRIA SHAMMO Facility:[facility]1 Start: 06-09-2022 ambulatory DEMETRIA SHAMMO Facility:H 1 Start: 06-02-[address] MAZIN MORENO . Facili ty:H1 Start: 05-29-2022 Encounter for genera l adult medical examination without abnormal findings DEMETRIA SHAMMO [facility] Start: 05-28-2022 End: 05-28-[address] MAZIN [...] Td Vaccines (2 - Td or Tdap) [facility] Start: 05-28-2032 Urine microalbumin profile DTaP,Tdap,Td Vaccine (2 - Td or Tdap) [facility] Start: 03-09-2026 Screening for malign ant neoplasm of cervix Cervical Cancer Screening [facility] Start: 05-27-2024 Adult BMI Screening Adult BMI Screen ing [facility] Start: 05-23-2024 Tobacco Screening Tobacco Screening [facility] Start: 05-20-2024 Tobacco Screening Tobacco Screening [facility] Start: 05-17-2024 Adult BMI Screening Adult BMI Screen ing [facility] Start: 04-30-2024 Adult BMI Screening Adult BMI Screen ing [facility] Start: 04-30-2024 Tobacco Screening Tobacco Screening [facility] Start: 01-31-2024 Tobacco Screening Tobacco Screening [facility] Start: 11-07-2023 Covid-19 Vaccine ( season) Covid-19 Vaccine ( season) [facility] Start: 11-07-2023 Influenza vaccination [facility] Start: 10-22-2023 [facility] Start: 09-30-2023 End: 09-30-2023 Patient encounter procedure 09/30/2023 9:15 AM EDT Office Visit Orthopaedics [address] [place] [address] Edward Arita, [address] [place] [address] Bilateral USGI Hip injections Orthopaedics Comment on above: Bilateral USGI Hip i njections Start: 06-25-2023 [facility] Start: 06-24-2023 Referral to ornamental painter [facility] Start: 06-24-2023 Referral to clinical school adjustment counselor [facility] Start: 06-22-2023 Hospital admission [facility] Start: 06-22-2023 [facility] Start: 03-08-2023 Behavioral Health Screening Behavioral Health Screening [facility] Start: 11-06-2022 Covid-19 Vaccine ( season) Covid-19 Vaccine () [facility] Start: 11-06-2022 Influenza vaccination Influenza Vacc ine [facility] Start: 2019 Screening for malign ant neoplasm of breast Mammogram Screening [facility] Start: 06-28-2000 Screening for malign ant neoplasm of cervix Pap Smear [facility] Start: 06-28-1998 Hepatitis B Vaccine (1 of 3 - 19+ 3-dose series) Hepatitis B Vaccine (1 of 3 - 19+ 3-dose series) [facility] Start: 06-28-1997 Adult BMI Follow Up Plan Adult BMI Follow Up Plan [facility] Start: 06-28-1997 Anxiety Screening Anxiety Screening [facility] Start: 06-28-1997 Depression Screening Depression Scre ing [facility] Start: 06-28-1997 HIV screening HIV Screening [facility] Start: 1991 Depression Screening Depression Scre ing [facility] Start: 06-28-1985 Pneumococcal vaccination Pneumococcal Vaccine (1 of 2 - PCV) [facility] Start: 1979 Tobacco Counseling Tobacco Counselin g [facility] Patient Education Depression, Ad ult (DC) [facility] DC Instructions [facility] Work Phone: Patient referral [facility] Work Phone: Immunizations Immunization Date Immunization Notes Care Provider Fa natalie 05-28-2022 tetanus toxoid, redu radha diphtheria toxoid, and acellular pertussis vaccine, adsorbed Butch Oliva DO Work Phone: [facility] Payers Date Payer Category Payer Private Health Insurance HUMANA HU[employer]NA MEDICAID [facility] [id number] 2023-Present [address] [address] [place] [address] Medicaid [id number] 2023 Self-pay 2022 Medicaid [facility] [employer] [place] [id number] 2022-Present [phone] [address] [place] [address] [id number] 2006 Medicaid [id number] 1979 Unknown [id number] [id number] 1979 Unknown [id number] 2.16.840.1.391871.3.579.2.5 1979 Unknown [id number] 2.16.840.1.462308.3.579.2.5 1979 Unknown [id number] 2.16.840.1.816707.3.579.2.5 1979 Unknown [id number] 2.16.840.1.163350.3.579.2.5 93 1979 Unknown [id number] 2.16.840.1.193022.3.579.2.5 1979 Unknown [id number] 2.16.840.1.079317.3.579.2.5 93 1979 Unknown [id number] 2.16.840.1.961714.3.579.2.5 93 1979 Unknown [id number] 2.16.840.1.328527.3.579.2.5 1979 Unknown [id number] 2.16.840.1.059061.3.579.2.5 1979 Unknown [id number] 2.16.840.1.197797.3.579.2.5 1979 Unknown [id number] 2.16.840.1.277035.3.579.2.1 1979 Unknown [id number] 2.16.840.1.778078.3.579.2.1 286 1979 Unknown [id number] 2.16.840.1.351468.3.579.2.1 259 1979 Unknown [id number] 2.16.840.1.815360.3.579.2.1 259 1979 Unknown [id number] 2.16.840.1.350422.3.579.2.1 259 1979 Unknown [id number] 2.16.840.1.597018.3.579.2.1 259 1979 Unknown [id number] 2.16.840.1.623527.3.579.2.1 259 1979 Unknown [id number] 2.16.840.1.090649.3.579.2.1 259 Unknown [id number] 2.16.840.1.423680.3.579.2.5 31 Unknown [id number] 2.16.840.1.006481.3.579.2.5 31 Unknown [id number] 2.16.840.1.701255.3.579.2.5 31 Social History Date Type Detail Facility Start: 05-17-2007 End: 04-30-2023 Tobacco smoking status ILIS Smokes tobacco daily [facility] Start: 03-08-1989 History of tobacco use Cigarette Smoker [facility] Start: 04-30-2023 End: 09-03-2023 Cigarettes smoked current (pack per day) - Reported 0.3 [facility] History of tobacco use Passive smoker [facility] Start: 04-30-2023 Tobacco use and exposure Smokeless tobacco non-user [facility] Start: 04-30-2023 End: 05-24-2023 Alcohol intake Ex-drinker (finding) [facility] Start: 04-30-2023 End: 09-03-2023 Tobacco use panel [facility] In the past 12 month s, has lack of transportation kept you from medical appointments or from getting medications? Yes [facility] Start: 04-30-2023 Tobacco Comment Started smoking at 9 years of age [facility] Start: 1980 Sex Assigned At Not on file [facility] Start: 06-24-2023 Tobacco smoking status NHIS Smoker (finding) [facility] Start: 1980 Sex Assigned At Female [facility] Start: 07-07-2010 Alcohol intake Current non-drinker of alcohol (finding) [facility] Tobacco smoking stat us NHIS Tobacco smoking consumption unknown [facility] Goals Date Patient Goal Desired Activity /State Functional Status Date Assessment Result Facility 06-25-2023 Functional status Patient at Baseline [facility] Work Phone: Mental Status Date Assessment Result Facility 06-25-2023 Cognitive function Cognitive Sta tus Patient at Baseline [facility] Work Phone: Clinical Notes 05-21-2022 to 09-30-2023 Edawrd Arita, - 09/30/2023 11:42 AM EDTPatient InstructionsTang [...] hip joints Informed Consent Consent Obtained: Verbal [place] Protocol A moment to CARE was completed. [...] Arita DO 09/30/2023 documented in this encounter [facility] 09-03-2023 Instructions Tang Sloan PA-C [...] MUCH MORE DANGEROUS. documented in this encounter [facility] 09-03-2023 Note HNO ID: [id number] Author: TANG SLOAN PA-C Service: ? Author Type: Physician Supervisor Respiratory Type: Progress Notes Filed: 09/07/2023 16:29 Note [...] She reports that she moved here from [place] and moved in with her sisters in the last few years but moved into a residential in the last year when she could not get around or do self-care. She is now living in a residential facility. Has significant pain in her back [...] gabapentin and methadone all given at the residential without great pain control. She has done physical therapy as well. She has schizoaffective disorder but otherwise is fairly healthy. She notes that her weight was 268 when she entered the residential but is now 320. Pain level is [...] Significant tenderness o (more content not included)... [facility] 09-03-2023 History of Presen t illness [...] She reports that she moved here from [place] and moved in with her sisters in the last few years but moved into a residential in the last year when she could not get around or do self-care. She is now living in a residential facility. Has significant pain in her back [...] gabapentin and methadone all given at the residential without great pain control. She has done physical therapy as well. She has schizoaffective disorder but otherwise is fairly healthy. She notes that her weight was 268 when she entered the residential but is now 320. Pain level is [...] been 268 pounds when she entered the residential and is now 320. She needs to [...] trochanteric bursa Informed Consent Consent Obtained: Verbal [place] Protocol A moment to CARE was completed. [...] TIME: 9:09 AM documented in this encounter [facility] 09-03-2023 Note HNO ID: [id number] Author: JULY MORRISON RT(R) Service: ? Author [...] PATIENT PRESENTS WITH AN IMPLANTABLE OR ATTACHED ZIPPER REPAIRER: No RADIOLOGY DEPARTMENT: General X-ray: Exam(s) Completed: Pelvis X-Ray: Pelvis with Hip Bilateral PERIPHERAL IV DATA: Not applicable SIGNED BY: RT Devi(R) September 03, 2023 8:51 AM [facility] 09-03-2023 History of Presen t illness [...] PATIENT PRESENTS WITH AN IMPLANTABLE OR ATTACHED ZIPPER REPAIRER: No RADIOLOGY DEPARTMENT: General X-ray: Exam(s) Completed: Pelvis X-Ray: Pelvis with Hip Bilateral PERIPHERAL IV DATA: Not applicable SIGNED BY: RT Devi(R) September 03, 2023 8:51 AM documented in this encounter [facility] 06-25-2023 Discharge summary Note Date/Time June 25, 2023 7:11am [facility] [address] [place] [address] Discharge Summary Signed Patient: Jennifer Mendes MR#: [id number] : 1980 Acct:[id number] Age/Sex: 42 / F Adm Date: 4 Loc: Room: [address] [place] [address]: Joseph Tello MD Copies to: [...] milieu. She has been working with case finisher on her aftercare she agreed to continue [...] 99 Discharge Plan Discharge Plan Patient Disposition: remote computer terminal operator [place] Care/Resident Activity: With Assist Diet: Regular Additional Instructions: Important Contact Information You can call [facility] at [phone] any time day or night if you have emergent questions or question regarding discharge instructions. If at any time you are feeling an increase inyour psychiatric symptoms, call your physician or behavioral healthcare provider. If any time you have thoughts of harming yourself or others contact one of the following: Call 8 (available 28/09) Crisis Text Line (available 28/09) text 4HOPE to [phone] [facility] Hope Line (available 8 a.m. Midnight) call [phone] ([phone]) Prescriptions: Continued aripiprazole 20 mg tablet 20 [...] signed by Joseph Tello MD> 06/25/23 0711 [facility] Work Phone: 1(753) 397-957604-19-2024 Consult note Author Linsey Pradhan [facility] June 24, 2023 11:55pm Note Date/Time June 24, 2023 12: 47pm [facility] [address] [place] [address] Hospitalist Consult Note Signed Patient: Jennifer Mendes MR#: [id number] : 1980 Acct:[id number] Age/Sex: 42 / F Adm Date: 4 Loc: Room: [address] [place] [address] Type: ADM IN Attending Dr: Joseph Tello MD Copies to: NON STAFF MD Anita Hull, ART HISTORY INSTRUCTOR Linsey Pradhan MD~ HPI DATE OF CONSULTATION: [...] <Electronically signed by Linsey Pradhan MD> 06/24/23 7042 [facility] Work Phone: 1(517) 262-780304-18-2024 Progress note Author Joseph martinez [facility] June 24, 2023 6:40am Note Date/Time June 24, 2023 6:4 0am [facility] [address] [place] [address] Psychiatry Progress Note Signed Patient: Jennifer Mendes MR#: [id number] : 1980 Acct:[id number] Age/Sex: 42 / F Adm Date: 4 Loc: Room: [address] [place] [address] Type : ADM IN Attending Dr: Joseph [...] signed by Joseph Tello MD> 06/24/23 0640 [facility] Work Phone: 1(822) 108-635904-17-2024 History and physical note Author Joseph martinez [facility] June 23, 2023 9:03am Note Date/Time June 23, 2023 8:5 8am [facility] [address] [place] [address] Psychiatry H&P Signed Patient: Jennifer Mendes MR#: [id number] : 1980 Acct:[id number] Age/Sex: 42 / F Adm Date: 4 Loc: 1S Room: [address] [place] [address] Type: ADM IN Attending Dr: Joseph Tello [...] signed by Joseph Tello MD> 06/23/23 0903 [facility] Work Phone: 1(710) 654-899003-28-2024 History of Present illness Narrative* Butch Jane Concepcion, DO - 06/03/2023 9:42 PM EDT Patient Name: Jennfier Mendes Date of : 1980 Date of Service: 06/03/2023 Facility: [facility] Type of Visit: Skilled Visit Subjective Jennifer Mendes is a 42 y.o. female seen today at longterm facility for acute visit. Jennifer She was [...] BY: Butch Oliva DO documented in this encounterOhio[facility]03-22-[facility]24 History of Present illness Narrative* Butch Oliva DO - 05/28/2023 11:59 PM EDT Patient Name: Jennifer Mendes Date of : 1980 Date of Service: 05/28/2023 Facility: [facility] Type of Visit: Skilled Visit Subjective Jennifer Mendes is a 42 y.o. female seen today at longterm facility for therapy visit. Jennifer is in [...] BY: Butch Oliva DO documented in this encounterOhioHealth Berger Hospital03-12-2024 History of Present illness Narrative* Megan Cash, ART HISTORY INSTRUCTOR-PUNCH MACHINE HAND - 05/18/2023 11:59 PM EDT Images from the original note were not included. Patient Name: Jennifer Mendes Date of : 1980 Date of Service: 05/18/2023 Facility: [facility] Type of Visit: Skilled Visit Subjective Jennifer Mendes is a 42 y.o. female seen today at longterm facility for Chief Complaint Patient presents with [...] Anemia Anxiety Arthritis Back pain Bipolar disorder ([facility]) Depression Latent tuberculosis infection Obesity Pneumonia Substance abuse ([facility]) Past Surgical History: Procedure Laterality Date [...] current episode mixed, current episode severity unspecified ([facility]) 3. Primary osteoarthritis of both hips 4. Schizophrenic disorder ([facility]) 5. Class 3 severe obesity due to excess calories with serious comorbidity and body mass index (BMI)of 60.0 to 69.9 in adult ([facility]) 6. Full code status Spinal stenosis of lumbar region Awaiting Medicaid approval to pursue pain management. Referral done, sent to [facility]. -Pain controlled with Oxycodone, [...] Napoles APRN-CNP 05/24/23 1753 documented in this encounterOhioHealth Berger Hospital03-08-2024 History of Present illness Narrative* Butch Oliva, DO - 05/14/2023 6:37 PM EST Patient Name: Jennifer Mendes Date of : 1980 Date of Service: 05/14/2023 Facility: [facility] Type of Visit: Skilled Visit Subjective Jennifer Mendes is a 42 y.o. female seen today at longterm facility for therapy visit. Jennifer is in [...] current episode mixed, current episode severity unspecified ([facility]) 6. Schizophrenic disorder ([facility]) Medically stable. Continue therapy to reach MMI. Await approval for medicaid so she can go to pain management. Other medications reviewed and are medically necessary. ELECTRONICALLY SIGNED BY: Butch Oliva DO documented in this encounterOhioHealth Berger Hospital02-23-2024 History of Present illness Narrative* Butch Oliva DO - 04/30/2023 5:37 PM EST Patient Name: Jennifer Mendes Date of : 1980 Date of Service: 04/30/2023 Facility: [facility] Type of Visit: Admission H&P Subjective Jennifer Mendes is a 42 y.o. female seen today at longterm facility for admission H&P. jennifer presents [facility] from the [facility] where she was treated for [...] scheduled to see a neurosurgeon up in [place] but then her insurance lapsed and the [...] Abdominal wall cellulitis Anemia Anxiety Bipolar disorder ([facility]) Depression Latent tuberculosis infection Pneumonia Past Surgical [...] current episode mixed, current episode severity unspecified ([facility]) 4. Anxiety 5. Primary osteoarthritis of both hips 6. TB lung, latent 7. Schizophrenic disorder ([facility]) 8. Class 3 severe obesity due to excess calories without serious comorbidity with body mass index (BMI) of 50.0 to 59.9 in adult ([facility]) Admit to [facility] for therapy. She is motivated to improve. She will need pain management and maybe neurosurgery. Fair to good rehab potential. Full code. Continue medications from the hospital. She was treated for TB with [facility] per pt. Continue doxycycline for syphilis. ELECTRONICALLY SIGNED BY: Butch Oliva DO documented in this encounterOhioHealth [facility] Hospital04-11-2023 NoteCONSULTATION CONSULTATION DATE: 06/16/2022 TO: [place] [...] our patients to inform us about any dpcv-vkm-yowghns medications or herbal remedies/nutritional supplements/alternative remedies. 2. [...] treatment options with their primary care provider.[facility] [id number] NotePROCEDURE: XR HIP LT 2 3V W PELVIS HISTORY: Pain ; left hip pain after falling COMPARISON: None. FINDINGS: BONES:Complete loss of the hip joint spaces bilaterally with subchondral sclerosis, pjvb-cp-qggi articulation, and remodeling of the femoral heads and acetabulum. SOFT TISSUES:No visible soft tissue swelling. EFFUSION:None visible. OTHER: Negative. IMPRESSION: 1. No acute bone abnormality. 2. Advanced degenerative changes of hip joints bilaterally. Electronically authenticated by: JEAN CARLOS MEDINA Date: 2022-05-21 11:47[facility]* Diagnosis Spinal stenosis of lumbar region, unspecified whether neurogenic claudication present- Primary Syphilis (acquired) Unspecified syphilis Bipolar affective disorder, current episode mixed, current episode severity unspecified ([facility]) Anxiety Anxiety state, unspecified Primary osteoarthritis of both hips TB lung, latent Schizophrenic disorder ([facility]) Unspecified schizophrenia, unspecified condition Class 3 severe obesity due to excess calories without serious comorbidity with body mass index (BMI) of 50.0 to 59.9 in adult ([facility]) documented [facility] this encounter [facility]* Diagnosis Spinal stenosis of lumbar region, unspecified whether neurogenic claudication present- Primary Bilateral primary osteoarthritis of hip Muscle weakness (generalized) Other abnormalities of gait and mobility Bipolar affective disorder, current episode mixed, current episode severity unspecified ([facility]) Schizophrenic disorder ([facility]) Unspecified schizophrenia, unspecified condition documented in this encounter [facility]* Diagnosis Spinal stenosis of lumbar region, unspecified whether neurogenic claudication present- Primary Bipolar affective disorder, current episode mixed, current episode severity unspecified ([facility]) Primary osteoarthritis of both hips Schizophrenic disorder ([facility]) Unspecified schizophrenia, unspecified condition Class 3 severe obesity due to excess calories with serious comorbidity and body mass index (BMI) of 60.0 to 69.9 in adult ([facility]) Full code status documented in this encounter [facility]* Diagnosis Bilateral primary osteoarthritis of hip- Primary Muscle weakness (generalized) Other abnormalities of gait and mobility Spinal stenosis of lumbar region, unspecified whether neurogenic claudication present documented in this encounter [facility]* Diagnosis Pedal edema- Primary Edema Intertrigo Other specified erythematous condition Morbid obesity ([facility]) Morbid obesity documented in this encounter [facility]* Diagnosis Onset Date Resolution Status Chronic pain acute Generalized anxiety disorder acute Major depressive disorder, recurrent, moderate acute [facility] Work Phone: Evaluation note* Diagnosis Primary [...] region and thigh documented in this encounter [facility]* Diagnosis Primary osteoarthritis of both hips- Primary Primary localized osteoarthrosis, pelvic region and thigh documented in this encounter [facility]Evaludel[facility] noteNo assessment information availableUniversity [facility] Work Phone: Evaluation note* Diagnosis Pain in left hip Pain in joint, pelvic region and thigh Pain in right hip Pain in joint, pelvic region and thigh documented in this encounter [facility] CenterInstructionsNot on filedocumented in this encounterProSt. Mary[facility] SystemInstructions* Attachments The following attachments cannot be sent through Care Everywhere. * Bipolar disorder (Vietnamese) documented in this encounterProSt. [facility] SystemInstructionsNot on file documented in this encounterProSt. [facility] SystemInstructionsNot on file documented in this encounterProLancaster Municipal HospitalReason for referral (narrative)* Diagnostic Procedure Only (Routine) - Closed Specialty Diagnoses / Procedures Referred By Nazario sanches Referred To Contact XR IMAGING Diagnoses Pain in left hip Pain in right hip Procedures XR HIP BILATERAL 5V PEL/AP/LAT EACH HIP RADEX HIPS BILATERAL WITH PELVIS MINIMUM 5 VIEWS Tang Sloan PA-C [address] [place] [address] [place] [address] Referral ID Status Reason Start Date Expiration Date V isits Requested Visits Authorized [id number] Closed Auto-Generate d Referral 08/30/2023 09/28/2024 1 1 [facility] for visit Narrative* Diagnostic Procedure Only (Routine) - Closed Specialty Diagnoses / Procedures Referred By Contac t Referred To Contact XR IMAGING Diagnoses Pain in left hip Pain in right hip Procedures XR HIP BILATERAL 5V PEL/AP/LAT EACH HIP RADEX HIPS BILATERAL WITH PELVIS MINIMUM 5 VIEWS Tang Sloan PA-C [address] [place] [address] [place] [address] Referral ID Status Reason Start Date Expiration Date V isits Requested Visits Authorized [id number] Closed Auto-Generate d Referral 08/30/2023 09/28/2024 1 1 [facility] Summary Purpose Family History No [...] HIGH COMPLEX 45 MINS Tang Sloan PA-C [address] [place] [address] [facility] [address] [address] Referral ID Status Reason Start Date Expiration Date Visits Requested Visits Authorized [id number] Pending Review Auto-Generat ed Referral 09/03/2023 09/02/2024 1 1 Specialty Diagnoses / Procedures Referred By Nazario sanches Referred To Contact XR IMAGING Diagnoses Pain in left hip Pain in right hip Procedures XR HIP BILATERAL 5V PEL/AP/LAT EACH HIP RADEX HIPS BILATERAL WITH PELVIS MINIMUM 5 VIEWS Tang Sloan PA-C [address] [place] [address] [place] [address] Referral ID Status Reason Start Date Expiration Date V isits Requested Visits Authorized [id number] Closed Auto-Generate d Referral 08/30/2023 09/28/2024 1 1 Additional Source Comments INFORMATION SOURCE (unrecogn ized section and content) DATE CREATED AUTHOR 07/08/2022 [facility] DATE CREATED AUTHOR AUTHOR'S ORGANIZ ATION 07/09/2023 [facility] DATE CREATED AUTHOR AUTHOR'S ORGANIZ ATION 09/09/2023 [facility] DATE CREATED AUTHOR AUTHOR'S ORGANIZ ATION 09/24/2023 [facility] EPIC DATE CREATED AUTHOR AUTHOR'S ORGANIZ ATION 10/27/2023 [facility] Care Teams (unrecognized sec tion and content) Team Status: Active Member Role Status Dates NON STAFF Primary Care Provider Active Team Status: Inactive Member Role Status Dates NON STAFF Primary Care Provider Active Start: October 22, 2023 End: October 22, 2023 Mazin Moreno DO Attending Provider Active Start : October 22, 2023 End: October 22, 2023 [employer] Relationship Specialty Start Date End Date No Pcp, [place] [address] PCP - General Family Medicine 10/30/22 [employer] Relationship Specialty Start Date End Date No Pcp, [place] [address] PCP - General Family Medicine 10/30/22 [employer] Relationship Specialty Start Date End Date No Pcp, [place] [address] PCP - General Family Medicine 10/30/22 [employer] Relationship Specialty Start Date End Date No Pcp, [place] [address] PCP - General Family Medicine 10/30/22 [employer] Relationship Specialty Start Date End Date No Pcp, [place] [address] PCP - General Family Medicine 10/30/22 Team [...] Procedures SERENA INJECT 1 Tang Sloan PA-C [address] [place] [address] Edward Arita DO [address] [place] [address] Referral ID Status Reason Start Date Expiration Date V isits Requested Visits Authorized [id number] Closed Financial Clearance Not Required 09/30/2023 10/31/2023 1 1 Source Comments (unrecognize d section and content) In the event this informatio n is protected by the Federal Confidentiality of Alcohol and Drug Abuse Patient Records regulations: The Federal rules restrict any use of the information to criminally investigate or prosecute any alcohol or drug abuse patient.[facility] CenterIn the event this information is protected by the Federal Confidentiality of Alcohol and Drug Abuse Patient Records regulations: The Federal rules restrict any use of the information to criminally investigate or prosecute any alcohol or drug abuse patient.[facility] CenterIn the event this information is protected by the Federal Confidentiality of Alcohol and Drug Abuse Patient Records regulations: The Federal rules restrict any use of the information to criminally investigate or prosecute any alcohol or drug abuse patient.[facility] CenterIn the event this information is protected by the Federal Confidentiality of Alcohol and Drug Abuse Patient Records regulations: The Federal rules restrict any use of the information to criminally investigate or prosecute any alcohol or drug abuse patient.[facility] Goals (unrecognized section and content) [...] BE BASED ON THE PRIMARY CLINICAL RECORDS. [facility] DNS:[employer] [facility]. provides no warranty or guarantee of the accuracy or completeness of information in this document.
== END 2023-12-17 12:46 | disposition home or self-care (01) ==
LOC: MRI 12:45
PROVIDERS: PCP Family Medicine; Visit Provider Neurological Surgery
DX: M43.16 Spondylolisthesis, lumbar region (principal); M51.369 Other intervertebral disc degeneration, lumbar region without mention of lumbar back pain or lower extremity pain
CPT/HCPCS: 72148

== ENCOUNTER 2023-12-22 16:03 | Outpatient (OUT) | payer MEDICAID, SELFPAY ==
--- OUTSIDE RECORDS SUMMARY | 2023-12-22 16:10 | XMS_ITS | CCD ---
Author Organization [facility] CliniSyga Care Team Providers Care Leveler Name Role Phone SHAMMO, DEMETRIA Primary Care [...] Attending Victorina vailable LAKSHMIPATHY ., NARENDRANATH Admitting Vcitorina vailable ROSITA ., DR DIAZ Admitting Unavailable [...] Other Provider DO Vitaly Lees Other Provider [phone] MD Carrillo Escamilla Other Provider [phone] MD Ara Carlin Other Provider MD [...] Other Provider DO Vick Dorsey Other Provider [phone] MD Chapin Bell Other Provider CECY Fuentes Other Provider CECY Chisholm Other Provider MD Taras Dunbar Other Provider MD Rickie Lobo Other Provider DO Jluis Harrell T Other Provider DO Ramez Mock Other Provider MD Rubén Ramirez P Other Provider ANA MARIA Blackwood Other Provider Unavailable Vazquez, SHANK BREAKER Wilda Other Provider MD Van Moore Other [...] Care Provider UnavailDO Mazin Roman Attending Provider [phone] NON STAFF Primary Care Unavailable Joseph Tello [...] (1 source) metroNIDAZOLE Drug Allergy 8 Hives [facility] Ondansetron (1 source) Ondansetron Drug Allergy 1 Itching [facility] (1 source) metroNIDAZOLE Drug Allergy 3 [facility] Repository (8 sources) metroNIDAZOLE; Translations: [METRONIDAZOLE] Drug Allergy 8 Nausea, Hives [facility] (10 sources) Ondansetron; Translations: [ONDANSETRON HCL] Drug Allergy 1 Itching [facility] (4 sources) metroNIDAZOLE; Translations: [METRONIDAZOLE HCL] Drug Allergy 8 Hives [facility] (1 source) metroNIDAZOLE Drug Allergy 4 [facility] Repository Medications Current Medications Medication [...] 02-06-2023 take [address] [facility] in the morning DULoxetine 40 [...] 12:00am Start: 02-28-2023 take [facility] tablet by [facility] every eight hours as needed ibuprofen [...] Pathology Request for Lab Larry Normal [facility] Comment on above: Order Comment: PATHO [facility] SPECIMEN Result Comment: See report. Scanned copy available in EMR. PERFORMED BY: [place] [address] [place] [address] PATHOLOGIST STITCHER TAPE CONTROLLED MACHINE JANNETTE ROTHMAN M.D. Performed By: #### P ATH TO [facility] #### [facility] [address] [id number] [facility] Large Joint Arthro/Inj: bila teral hip jointson 09-30-2023 Edward Arita DO 09/30/2023 11:44 AM Large Joint Arthro/Inj: bilateral hip joints Informed Consent Consent Obtained: Verbal [place] Protocol A moment to CARE was completed. [...] Plan of Care Visit completed when applicable [facility] US HIP-INJECTION LT (POC) OR I USE ONLYon 09-30-2023 [facility] US HIP-INJECTION RT (POC) OR I USE ONLYon 09-30-2023 [facility] CNOVon 09-03-2023 CNOV Office Visit (LOORRM ) JENNIFER MENDES ([id number]) 1980 F [facility] Date Time Provider Department 09/03/23 8:30 [...] She reports that she moved here from [place] and moved in with her sisters in the last few years but moved into a penitentiary in the last year when she could not get around or do self-care. She is now living in a penitentiary facility. Has significant pain in her back [...] gabapentin and methadone all given at the penitentiary without great pain control. She has done physical therapy as well. She has schizoaffective disorder but otherwise is fairly healthy. She notes that her weight was 268 when she entered the penitentiary but is now 320. Pain level is [...] 4/5 Other (more content not included)... Normal [facility] Large Joint Arthro/Inj: R rani nixon trochanteric bursaon 09-03-2023 Tang Sloan PA-C 09/07/2023 4:29 PM Large Joint Arthro/Inj: R greater trochanteric bursa Informed Consent Consent Obtained: Verbal [place] Protocol A moment to CARE was completed. [...] constitution party verified by Monae Vaca MA. [facility] XR HIP JORGE LUIS 5V [...] No fracture. IMPRESSION: SEVERE BILATERAL HIP OSTEOARTHRITIS. Stitch Bonding Machine Operator: FAY Transcribe Date/Time: Sep 03 2023 11:04A Dictated by : EVA ZARATE MD This examination was interpreted and the report reviewed and electronically signed by: EVA ZARATE MD on Sep 03 2023 11:05AM EST [id number] Normal [facility] XR HIP BILATERAL 5V PEL/AP/L AT EACH HIPon 09-03-2023 IMPRESSION: SEVERE BILATERAL HIP OSTEOARTHRITIS. Stitch Bonding Machine Operator: PSCB Transcribe Date/Time: Sep 03 2023 [...] pubis. No fracture. DIVISION OF RADIOLOGY Provider, [facility] - 09/03/2023 * * *Final Report* [...] fracture. IMPRESSION IMPRESSION: SEVERE BILATERAL HIP OSTEOARTHRITIS. Stitch Bonding Machine Operator: FAY Transcribe Date/Time: Sep 03 2023 11:04A Dictated by : EVA ZARATE MD This examination was interpreted and the report reviewed and electronically signed by: EVA ZARATE MD on Sep 03 2023 11:05AM EST [facility] Radiology Study observation (narrative) Jamar [facility] XR HIP BILATERAL 5V PEL/AP/L AT EACH HIPOrdered By: Ccf Provider on 09-03-2023 [facility] Cholesterol [Mass/volume] in Serum or PlasmaOrdered By: Joseph Tello on 06-23-2023 Cholesterol [Mass/Vol] 172 mg/dL Normal 140-200 [facility] Comment on above: Chol less than 200 m g/dl low riskChol 201-239 mg/dl borderline riskChol 240 mg/dl and greater high risk Order Comment: WALDEMARI KEIRY Y Result Comment: Chol less than 200 mg/dl low risk Chol 201-239 mg/dl borderline risk Chol 240 mg/dl and greater high risk Performed By: #### T SH3 wRFLX, LIPID, [id number] #### [facility] [address] Cholesterol in LDL Calc [Mas s/Vol]Ordered By: Joseph Tello on 06-23-2023 Cholesterol in LDL [Mass/Vol] 100 mg/dL 0-100 [facility] Comment on above: LDL ATP III CLASSIFI CATIONLDL less than 100 mg/dL OptimalLDL 100-129 mg/dL Near or above optimalLDL 130-159 mg/dL Borderline highLDL 160-189 mg/dL HighLDL greater than 189 mg/dL Very high Cholesterol in VLDL Calc [Ma ss/Vol]Ordered By: Joesph Tello on 06-23-2023 Cholesterol in VLDL [Mass/Vol] 44 mg/dL [facility] ECG 12 lead ECGon 06-23-2023 ECG 12 lead ECG [facility] [address] [place] [address] [place] [address] Electrocardiograph Report Signed Patient: Jennifer Mendes MR#: [id number] : 1980 Acct:[id number] Age/Sex: 42 / F ADM Date: 06/22/23 Loc: Room: [address] [place] [address] Type: ADM IN Attending Dr: Joseph Tello [...] previous ECGs available Confirmed by Sekou Maciel ([id number]) on 06/23/2023 11:23:15 AM Referred By: Electronically Signed By:Sekou Maciel Transcribed By: MUS Signed By Sekou Maciel MD 06/23/23 1123 Normal [facility] Lipid Panelon 06-23-2023 LDL Cholesterol,Calculated 100 mg/dL Normal 0-100 [facility] Comment on above: Order Comment: ANGELIQUE Ornelas Result Comment: LDL ATP III CLASSIFICATION LDL less than 100 mg/dL Optimal LDL 100-129 mg/dL Near or above optimal LDL 130-159 mg/dL Borderline high LDL 160-189 mg/dL High LDL greater than 189 mg/dL Very high Performed By: #### T SH3 wRFLX, LIPID, [id number] #### [facility] [address] Triglyceride w/Reflex 220 mg/dL High 0-149 [facility] Comment on above: Order Comment: ANGELIQUE Ornelas Result Comment: TRIG ATP III CLASSIFICATION TRIG less than 150 mg/dL Normal TRIG 150-199 mg/dL Borderline high TRIG 200-500 mg/dL High TRIG greater than 500 mg/dL Very high Standard traceable to the Center for Disease Conrtrol and Prevention (CDC) test method. Performed By: #### T SH3 wRFLX, LIPID, [id number] #### [facility] [address] VLDL CHOLESTEROL 44 mg/dL Normal [facility] Comment on above: Order Comment: FASTI NG Y Performed By: #### T SH3 wRFLX, LIPID, [id number] #### [address] Serum or plasma high density lipoprotein (HDL) cholesterol measurementOrdered By: Joseph Tello on 06-23-2023 Cholesterol in HDL [Mass/Vol] 28 mg/dL Normal 23-92 [facility] Comment on above: HDL CHOL ATP-III CLA SSIFICATION Cardiovascular RiskHDL > or equal to 60 mg/dL LOWHDL < 40 mg/dL HIGH Order Comment: FASTI NG Y Result Comment: HDL CHOL ATP-III CLASSIFICATION Cardiovascular Risk HDL > or equal to 60 mg/dL LOW HDL < 40 mg/dL HIGH Performed By: #### T SH3 wRFLX, LIPID, [id number] #### [facility] [address] [place] [address] Serum or plasma total choles terol/high density lipoprotein (HDL) cholesterol mass ratOrdered By: Joseph Tello on 06-23-2023 Cholesterol.total/Cholest mitch in HDL [Mass ratio] 6.1 {ratio} Normal <5.0 [facility] Comment on above: Order Comment: FASTI NG Y Performed By: #### T SH3 wRFLX, LIPID, [id number] #### [facility] [address] Thyroid Stim Hormone w/Rflxo n 06-23-2023 Thyroid Stim Hormone w/Rflx 2.27 u[iU]/mL Normal 0.45-5.33 [facility] Comment on above: Order Comment: FASTI NG Y Performed By: #### T SH3 wRFLX, LIPID, [id number] #### [address] Thyrotropin [Units/volume] i n Serum or PlasmaOrdered By: Joseph Tello on 06-23-2023 TSH Qn 2.27 m[IU]/L 0.45-5.33 [facility] Triglyceride [Mass/volume] i n Serum or PlasmaOrdered By: Joseph Tello on 06-23-2023 Triglyceride [Mass/Vol] 220 mg/dL 0-149 [facility] Comment on above: TRIG ATP III CLASSIF ICATIONTRIG less than 150 mg/dL NormalTRIG 150-199 mg/dL Borderline highTRIG 200-500 mg/dL High TRIG greater than 500 mg/dL Very highStandard traceable to the Center for Disease Conrtrol and Prevention (CDC) test method. Vitamin D 25 Hydroxy Totalon 06-23-2023 Vitamin D 25 Hydroxy Total 13.4 ng/mL Low 30-100 [facility] Comment on above: Order Comment: FASTI NG Y Result Comment: DELVIS MIN D STATUS 25(OH)VITAMIN D RANGE (ng/mL) Deficient <20 Insufficient 20 to <30 Sufficient 30 to 100 Reference: Ricky Phipps, Shan KEARNEY, et al. Evaluation,treatment, and prevention of vitamin D deficiency; an Endocrine Society clinical practice guideline. JCEM. 2010; 96(7):1911-30. PERFORMED BY: [place] [address] PATHOLOGIST STITCHER TAPE CONTROLLED MACHINE JANNETTE ROTHMAN M.D. Performed By: #### T SH3 wRFLX, LIPID, [id number] #### [facility] [address] Vitamin D+Metabolites [Mass/ volume] in Serum or PlasmaOrdered By: Joseph Tello on 06-23-2023 Vitamin D+Metabolites [Mass/Vol] 13.4 ng/mL 30-100 [facility] Comment on above: VITAMIN D STATUS 25( [place])VITAMIN D RANGE (ng/mL) Deficient <20 Insufficient 20 to <30Sufficient 30 to 100Reference: Ricky Phipps, Shan KEARNEY, et al. Evaluation,treatment, and prevention of vitamin D deficiency; an Endocrine Society clinical practice guideline. JCEM. 2010; 96(7):1911-30. ACETAMINOPHENon 06-22-2023 Acetaminophen [Mass/Vol] 5.1 ug/mL Low 10.0-30.0 [facility] Comment on above: Result Comment: Refe rence ranges are for therapeutic limits. Performed By: #### C CHANTELL, 4024-6, 5643-2, 3298-7, CBCA #### [facility] ([id number]) [address] [place] [address] 944[address] CBC AND AUTO DIFFon 06-22-19 ABSOLUTE BASOPHIL 0.2 X10E9/L Normal 0.0-0.2 [facility] Comment on above: Performed By: #### C CHANTELL, 4024-6, 5643-2, 3298-7, CBCA #### [facility] ([id number]) [address] [place] [address] 89985 ABSOLUTE NEUTROPHIL 8.5 X10E9/L High 1.5-6.6 [facility] Comment on above: Performed By: #### C CHANTELL, 4024-6, 5643-2, 3298-7, CBCA #### [facility] ([id number]) [address] [place] [address] 73311 Basophils/100 WBC (Bld) 1.5 % Normal [facility] Comment on above: Performed By: #### C CHANTELL, 4024-6, 5643-2, 3298-7, CBCA #### [facility] ([id number]) [address] [place] [address] 33474 Eosinophils (Bld) [#/Vol] 0.9 10*3/uL High 0.0-0.4 [facility] Comment on above: Performed By: #### C CHANTELL, 4024-6, 5643-2, 3298-7, CBCA #### [facility] ([id number]) [address] [place] [address] 87338 Eosinophils/100 WBC (Bld) 6.5 % Normal [facility] Comment on above: Performed By: #### C CHANTELL, 4024-6, 5643-2, 3297-7, CBCA #### [facility] ([id number]) [address] [place] [address] 35783 Erythrocyte distribution width (RBC) [Ratio] 18.1 % High 11.5-15.0 [facility] Comment on above: Performed By: #### C CHANTELL, [facility], [facility]-2, 3297-09, CBCA #### [facility] ([id number]) [address] [place] [address] 40406 Hematocrit (Bld) [Volume fraction] 35.5 % Normal 35-47 [facility] Comment on above: Performed By: #### C CHANTELL, [facility], [facility]-2, 3297-09, CBCA #### [facility] ([id number]) [address] [place] [address] 16584 Hemoglobin (Bld) [Mass/Vol] 11.2 g/dL Low 11.7-15.5 [facility] Comment on above: Performed By: #### C CHANTELL, [facility], [facility]-2, 32910-12, CBCA #### [facility] ([id number]) [address] [place] [address] 84596 Lymphocytes (Bld) [#/Vol] 3.1 10*3/uL Normal 1.0-3.5 [facility] Comment on above: Performed By: #### C CHANTELL, [facility]-6, 5643-2, 3297-09, CBCA #### [facility] ([id number]) [address] [place] [address] 26386 Lymphocytes/100 WBC (Bld) 22.2 % Normal [facility] Comment on above: Performed By: #### C CHANTELL, 4024-6, 5643-2, 7, CBCA #### [facility] ([id number]) [address] [place] [address] 56187 MCH (RBC) [Entitic mass] 23.1 pg Low 27-34 [facility] Comment on above: Performed By: #### Rene ABDUL, [facility], 56-2, 3297-09, CBCA #### [facility] ([id number]) [address] [place] [address] 43903 MCHC (RBC) [Mass/Vol] 31.4 g/dL Low 32-36 [facility] Comment on above: Performed By: #### Rene ABDUL, [facility], [facility]-2, 3297-09, CBCA #### [facility] ([id number]) [address] [place] [address] 52878 MCV (RBC) [Entitic vol] 74 fL Low 80-100 P [facility] Comment on above: Performed By: #### Rene ABDUL, [facility]-6, [facility]-2, 3297-09, CBCA #### [facility] ([id number]) [address] [place] [address] 68847 Monocytes (Bld) [#/Vol] 1.1 10*3/uL High 0-0.9 [facility] Comment on above: Performed By: #### Rene ABDUL, [facility]-6, 5643-2, 3297-09, CBCA #### [facility] ([id number]) [address] [place] [address] 47430 Monocytes/100 WBC (Bld) 8.0 % Normal P [facility] Comment on above: Performed By: #### C CHANTELL, [facility], 5643-2, 3297-09, CBCA #### [facility] ([id number]) [address] [place] [address] 94282 Neutrophils/100 WBC (Bld) 61.8 % Normal [facility] Comment on above: Performed By: #### C CHANTELL, 4024-6, 5643-2, 329-7, CBCA #### [facility] ([id number]) [address] [place] [address] 27332 Platelet mean volume (Bld) [Entitic vol] 7.9 fL Normal 7-12 [facility] Comment on above: Performed By: #### C CHANTELL, 4024-6, 5643-2, 329-, CBCA #### [facility] ([id number]) [address] [place] [address] 78538 Platelets (Bld) [#/Vol] 530 10*3/uL High 150-450 [facility] Comment on above: Performed By: #### C CHANTELL, [facility], 5643-2, 32910-12, CBCA #### [facility] ([id number]) [address] [place] [address] 46303 RBC COUNT 4.82 X10E12/L Normal 3.80-5.20 [facility] Comment on above: Performed By: #### C CHANTELL, 4024-6, 5643-2, 32910-12, CBCA #### [facility] ([id number]) [address] [place] [address] 20207 WBC (Bld) [#/Vol] 13.8 10*3/uL High 4.0-11.0 [facility] Comment on above: Performed By: #### C CHANTELL, 4024-6, 5643-2, 3298-, CBCA #### [facility] ([id number]) [address] [place] [address] 53741 COMPREHENSIVE METABOLIC PANE Jace 06-22-2023 Albumin [Mass/Vol] 3.6 g/dL Normal 3.2-5.3 [facility] Comment on above: Performed By: #### C CHANTELL, 4024-6, 5643-2, 3297-7, CBCA #### [facility] ([id number]) [address] [place] [address] 55958 ALP [Catalytic activity/Vol] 51 U/L Normal 39-130 [facility] Comment on above: Performed By: #### C CHANTELL, 4024-6, 5643-2, 7, CBCA #### [facility] ([id number]) [address] [place] [address] 24809 ALT [Catalytic activity/Vol] 18 U/L Normal 0-31 [facility] Comment on above: Performed By: #### C CHANTELL, 4024-6, 5643-2, 7, CBCA #### [facility] ([id number]) [address] [place] [address] 54745 Anion gap [Moles/Vol] 6 mmol/L Normal 5-15 [facility] Comment on above: Performed By: #### C CHANTELL, 4024-6, 5643-2, 3297-09, CBCA #### [facility] ([id number]) [address] [place] [address] 07066 AST [Catalytic activity/Vol] 14 U/L Normal 0-41 [facility] Comment on above: Performed By: #### C CHANTELL, 4024-6, 5643-2, 3297-09, CBCA #### [facility] ([id number]) [address] [place] [address] 27393 Bilirubin [Mass/Vol] 0.6 mg/dL Normal 0.3-1.2 [facility] Comment on above: Performed By: #### C CHANTELL, 4024-6, 5643-2, 3297, CBCA #### [facility] ([id number]) [address] [place] [address] 85566 Calcium [Mass/Vol] 9.0 mg/dL Normal 8.5-10.5 [facility] Comment on above: Performed By: #### C CHANTELL, 4024-6, 5643-2, 3297-7, CBCA #### [facility] ([id number]) [address] [place] [address] 82852 Chloride [Moles/Vol] 104 mmol/L Normal 98-109 [facility] Comment on above: Performed By: #### C CHANTELL, 4024-6, 5643-2, 7, CBCA #### [facility] ([id number]) [address] [place] [address] 72117 CO2 [Moles/Vol] 26 mmol/L Normal 22-32 [facility] Comment on above: Performed By: #### C CHANTELL, 4024-6, 5643-2, 3297-09, CBCA #### [facility] ([id number]) [address] [place] [address] 57647 Creatinine [Mass/Vol] 0.84 mg/dL Normal 0.40-1.00 [facility] Comment on above: Result Comment: METH OD TRACEABLE TO IDMS STANDARD Performed By: #### C CHANTELL, 4024-6, 5643-2, 3297, CBCA #### [facility] ([id number]) [address] [place] [address] 20192 GFR/1.73 sq M.predicted among non-blacks MDRD (S/P/Bld) [Vol rate/Area] 88 mL/min/{1.73_m2} Normal >59 [facility] Comment on above: Result Comment: Reported eGFR is based on the CKD-EPI 2020 equation that does not use a race coefficient. Performed By: #### C CHANTELL, 4024-6, 5643-2, 3298-7, CBCA #### [facility] ([id number]) [address] [place] [address] Glucose [Mass/Vol] 96 mg/dL Normal 65-99 [facility] Comment on above: Performed By: #### C CHANTELL, 4024-6, 5643-2, 3298-7, CBCA #### [facility] ([id number]) [address] [place] [address] 03104 Potassium [Moles/Vol] 3.9 mmol/L Normal 3.5-5.0 [facility] Comment on above: Performed By: #### C CHANTELL, 4024-6, 5643-2, 3298-7, CBCA #### [facility] ([id number]) [address] [place] [address] 38512 Protein [Mass/Vol] 8.0 g/dL Normal 6.0-8.0 [facility] Comment on above: Performed By: #### C CHANTELL, 4024-6, 5643-2, 3297, CBCA #### [facility] ([id number]) [address] [place] [address] 97734 Sodium [Moles/Vol] 136 mmol/L Normal 134-146 [facility] Comment on above: Performed By: #### C CHANTELL, 4024-6, 5643-2, 3298-7, CBCA #### [facility] ([id number]) [address] [place] [address] 57420 Urea nitrogen [Mass/Vol] 21 mg/dL Normal 5-23 [facility] Comment on above: Performed By: #### C CHANTELL, 4024-6, 5643-2, 3298-7, CBCA #### [facility] ([id number]) [address] [place] [address] 42361 DRUG SCREEN, URINEon 024 AMPHETAMINE/METHAMP Negative Normal NEG [facility] Comment on above: Result Comment: AMPH /METH screening cut off = 1000 ng/mL Performed By: #### D CRUZ #### [facility] ([id number]) [address] [place] [address] 99567 BARBITURATES Negative Normal NEG [facility] Comment on above: Result Comment: Ella iturates screening cut off value = 200 ng/mL Performed By: #### D CRUZ #### [facility] ([id number]) [address] [place] [address] 86121 BENZODIAZEPINES Negative Normal NEG [facility] Comment on above: Result Comment: Feng odiazepines screening cut off value = 200 ng/mL Performed By: #### D CRUZ #### [facility] ([id number]) [address] [place] [address] 75236 CANNABINOIDS Positive Abnormal NEG [facility] Comment on above: Result Comment: Conf irmation available upon request. Cannabinoids/THC screening cut off value = 50 ng/mL Performed By: #### D CRUZ #### [facility] ([id number]) [address] [place] [address] 09139 COCAINE METABOLITE Negative Normal NEG [facility] Comment on above: Result Comment: Coca ine screening cut off value = 300 ng/mL Performed By: #### D CRUZ #### [facility] ([id number]) [address] [place] [address] 61107 ECSTASY Negative Normal NEG [facility] Comment on above: Result Comment: Ecst asy screening cut off value = 500 ng/mL This report is intended for use in clinical monitoring or management of patients. Performed By: #### D CRUZ #### [facility] ([id number]) [address] [place] [address] 31160 METHADONE Negative Normal NEG [facility] Comment on above: Result Comment: Meth adone screening cut off value = 300 ng/mL. Performed By: #### D CRUZ #### [facility] ([id number]) [address] [place] [address] 29592 OPIATES Negative Normal NEG [facility] Comment on above: Result Comment: Opia alesha screening cut off value = 300 ng/mL NOTE: This test is used for the detection of codeine, hydrocodone (>1000 ng/mL), morphine and hydromorphone (>900 ng/mL) in urine. Performed By: #### D CRUZ #### [facility] ([id number]) [address] [place] [address] 48772 OXYCODONE Positive Abnormal NEG [facility] Comment on above: Result Comment: Conf irmation available upon request. Oxycodone screening cut off value = 300 ng/mL NOTE: This test is used for the detection of oxycodone and oxymorphone in urine. Performed By: #### D CRUZ #### [facility] ([id number]) [address] [place] [address] 10243 PHENCYCLIDINE Negative Normal NEG [facility] Comment on above: Result Comment: Phen cyclidine screening cut off value = 25 ng/mL Performed By: #### D CRUZ #### [facility] ([id number]) [address] [place] [address] 26718 ETHANOLon 06-22-2023 Ethanol [Mass/Vol] mg/dL Normal 0.00-0.08 [facility] Comment on above: Result Comment: This report is intended for use in clinical monitoring or management of patients. Performed By: #### C MP, 4024-6, 5643-2, 3298-7, CBCA #### [facility] ([id number]) [address] [place] [address] 91233 HCG ( test) Ql (U)o n 06-22-2023 Beta HCG ( test) Ql (U) Negative Normal NEG [facility] Comment on above: Performed By: #### 2 106-3 #### [facility] ([id number]) [address] [place] [address] 54145 Salicylates [Mass/Vol]on SALICYLATE <4.0 Normal 2.0-25.0 [facility] Comment on above: Result Comment: Refe rence ranges are for therapeutic limits. Performed By: #### C MP, 4024-6, 5643-2, 3298-7, CBCA #### [facility] ([id number]) [address] [place], [place] [id number] URN MACROSCOPIC NURon 2023 BILIRUBIN [place] Negative Normal NEG [facility] Comment on above: Performed By: #### N UM #### [facility] ([id number]) [address] [place] [id number] BLOOD/HGB [place] Trace Abnormal NEG [facility] Comment on above: Performed By: #### N UM #### [facility] ([id number]) [address] [place] [address] [place] [address] GLUCOSE [place] Negative Normal NEG [facility] Comment on above: Performed By: #### N UM #### [facility] ([id number]) [address] [place] [address] [place] [address] KETONES [place] Negative Normal NEG [facility] Comment on above: Performed By: #### N UM #### [facility] ([id number]) [address] [place] [address] [place] [address] LEUKOCYTE ESTERASE [place] MODERATE Abnormal NEG [facility] Comment on above: Performed By: #### N UM #### [facility] ([id number]) [address] [place] [address] [place] [address] NITRITE [place] Negative Normal NEG [facility] Comment on above: Performed By: #### N UM #### [facility] ([id number]) [address] [place] [address] [place] [address] PH [place] 5.0 Normal 5.0-8.5 [facility] Comment on above: Performed By: #### N UM #### [facility] ([id number]) [address] [place] [address] PROTEIN [place] Negative Normal NEG [facility] Comment on above: Performed By: #### N UM #### [facility] ([id number]) [address] [place] [id number] SPECIFIC GRAVITY [place] 1.015 Normal 1.003-1.035 [facility] Comment on above: Performed By: #### N UM #### [facility] ([id number]) [address] [place] [id number] UROBILINOGEN [place] 0.2 eu/dL Normal <1.1 [facility] Comment on above: Performed By: #### N UM #### [facility] ([id number]) [address] [place] [address] PAP ACOG PANEL 2: 30 to 65on 06-03-2022 . . Normal [facility] Comment on above: Result Comment: Perf ormed at: WB Performed By: #### [id number] #### [facility] [address] [place] [address] Dr. Dustin Hoover Age Gdln ACOG Testing 30-65 Normal [facility] Comment on above: Performed By: #### [id number] #### [facility] [address] [place] [address] Dr. Dustin Hoover DIAGNOSIS: Comment Abnormal [facility] Comment on above: Result Comment: EPIT HELIAL CELL ABNORMALITY. ATYPICAL SQUAMOUS CELLS OF UNDETERMINED SIGNIFICANCE (ASC-US). TRICHOMONAS VAGINALIS IS PRESENT. Performed at: WB Performed By: #### [id number] #### [facility] [address] [address] [address] Dustin Hoover Electronically signed by: Comment Normal [facility] Comment on above: Result Comment: Andreia López MD, Pathologist Performed at: WB Performed By: #### [id number] #### [facility] [address] [address] [address] Dustin Hoover HPV Aptima Negative Normal Negative [facility] Comment on above: Result Comment: This nucleic acid amplification test detects fourteen high-risk HPV types (16,18,31,33,35,39,45,51,52,56,58,59,66,68) without differentiation. Performed at: =G Performed By: #### [id number] #### [facility] [address] [place] [address] Dr. Dustin Hoover HPV Genotype Reflex Comment Normal [facility] Comment on above: Result Comment: Crit eria not met, HPV Genotype not performed. Performed at: WB Performed By: #### [id number] #### [facility] [address] [place] [address] Dr. Dustin Hoover Methodology: Comment Normal [facility] Comment on above: Result Comment: This liquid based ThinPrep(R) pap test was screened with the use of an image guided system. Performed at: WB Performed By: #### [id number] #### [facility] [address] [place] [address] Dr. Dustin Hoover Note: Comment Normal [facility] Comment on above: Result Comment: The Pap smear is a screening test designed to aid in the detection of premalignant and malignant conditions of the uterine cervix. It is not a diagnostic procedure and should not be used as the sole means of detecting cervical cancer. Both false-positive and false-negative reports do occur. . Performed at: WB Performed By: #### [id number] #### [facility] [address] [place] [address] Dr. Dustin Hoover Pathologist Provided ICD10 Comment Normal [facility] Comment on above: Result Comment: R87. 610, R87.5 Performed at: WB Performed By: #### [id number] #### [facility] [address] [place] [address] Dr. Dustin Hoover Performed by: Comment Normal [facility] Comment on above: Result Comment: Bernadette Tucker, [employer] Worker (ASCP) Performed at: WB Performed By: #### [id number] #### [facility] [address] [place] [address] Dr. Dustin Hoover Recommendation: Comment Abnormal [facility] Comment on above: Result Comment: Sugg est follow up as clinically appropriate. Performed at: WB Performed By: #### [id number] #### [facility] [address] [place] [address] Dr. Dustin Hoover Specimen adequacy: Comment Normal [facility] Comment on above: Result Comment: Sati sfactory for evaluation. Endocervical and/or squamous metaplastic cells (endocervical component) are present. Performed at: WB Performed By: #### [id number] #### [facility] [address] [place] [address] Dr. Dustin Hoover LIPID PROFILEon 05-28-2022 CHOL-HDL RATIO NORM SEE BELOW Normal [facility] Comment on above: Result Comment: 3.3 - 4.4 LOW RISK 4.4 - 7.1 AVERAGE RISK 7.1 - 11.0 MODERATE RISK >11.0 HIGH RISK Performed By: #### P TT, PT #### [facility] [address] [place] [address] Dr. Dustin Hoover Cholesterol [Mass/Vol] 180 mg/dL Normal <=200 [facility] Comment on above: Performed By: #### P TT, PT #### [facility] [address] [place] [address] Dr. Dustin Hoover Cholesterol in HDL [Mass/Vol] 32 mg/dL Critically low 40-60 [facility] Comment on above: Performed By: #### P TT, PT #### [facility] [address] [address] [address] Dustin Hoover Cholesterol in LDL [Mass/Vol] 108.6 mg/dL Normal [facility] Comment on above: Performed By: #### P TT, PT #### [facility] [address] [place] [address] Dr. Dustin Hoover Cholesterol.total/Cholest mitch in HDL [Mass ratio] 5.6 {ratio} Normal [facility] Comment on above: Performed By: #### P TT, PT #### [facility] [address] [place] [address] Dr. Dustin Hoover HDL NORMAL > or = 60 mg/dl - LO W CARDIOVASCULAR RISK <40 mg/dl - HIGH CARDIOVASCULAR RISK Normal [facility] Comment on above: Performed By: #### P TT, PT #### [facility] [address] [address] [address] Dustin Hoover LDL CALC NORMAL SEE BELOW Normal [facility] Comment on above: Result Comment: <100 mg/dl OPTIMAL 100 - 129 mg/dl NEAR OR ABOVE OPTIMAL 130 - 159 mg/dl BORDERLINE HIGH 160 - 189 mg/dl HIGH >190 mg/dl VERY HIGH Performed By: #### P TT, PT #### [facility] [address] [address] [address] Dustni Hoover Triglyceride [Mass/Vol] 197 mg/dL Critically high <=150 [facility] Comment on above: Performed By: #### P TT, PT #### [facility] [address] [address] [address] Dustin Hoover VLDL CALC 39.4 mg/dL Normal [facility] Comment on above: Performed By: #### P TT, PT #### [facility] [address] [address] [address] Dustin Hoover MG MAMM SCREEN 3D JORGE LUIS CADon 05-28-2022 MG MAMM SCREEN 3D JORGE LUIS CAD Patient: JENNIFER MANZANO Exam Date: 05/28/2022 : 1980 Gender:F Ordering : DEMETRIA PHILLIPS Admission #: [id number] Family : Order #: [id number] CLICK HERE TO VIEW EXAM RADIOLOGY REPORT [...] breast cancer at age 64. LOCATION: [facility] BREAST COMPOSITION: Almost entirely fatty. [...] Medina M.D. on 05/28/2022 at 13:16 Normal [facility] PROF 14(COMP METB)on 023 Albumin [Mass/Vol] 3.3 g/dL Critically low 3.4-5.0 [facility] Comment on above: Performed By: #### P TT, PT #### [facility] [address] [address] [address] Dustin Hoover Albumin/Globulin [Mass ratio] 0.9 {ratio} Normal [facility] Comment on above: Performed By: #### P TT, PT #### [facility] [address] [place] [address] Dr. Dustin Hoover ALP [Catalytic activity/Vol] 54 U/L Normal 46-116 [facility] Comment on above: Performed By: #### P TT, PT #### [facility] [address] [place] [address] Dr. Dustin Hoover ALT [Catalytic activity/Vol] 18 U/L Normal 14-59 [facility] Comment on above: Performed By: #### P TT, PT #### [facility] [address] [address] [address] Dustin Hoover Anion gap [Moles/Vol] 10.8 mmol/L Normal [facility] Comment on above: Performed By: #### P TT, PT #### [facility] [address] [place] [address] Dr. Dustin Hoover AST [Catalytic activity/Vol] 11 U/L Critically low 15-37 [facility] Comment on above: Performed By: #### P TT, PT #### [facility] [address] [place] [address] Dr. Dustin Hoover Bilirubin [Mass/Vol] 0.3 mg/dL Normal 0.2-1.0 [facility] Comment on above: Performed By: #### P TT, PT #### [facility] [address] [place] [address] Dr. Dustin Hoover Calcium [Mass/Vol] 8.5 mg/dL Normal 8.5-10.1 [facility] Comment on above: Performed By: #### P TT, PT #### [facility] [address] [place] [address] Dr. Dustin Hoover Chloride [Moles/Vol] 105 mmol/L Normal 98-107 [facility] Comment on above: Performed By: #### P TT, PT #### [facility] [address] [place] [address] Dr. Dustin Hoover CO2 [Moles/Vol] 26.2 mmol/L Normal 21.0-32.0 [facility] Comment on above: Performed By: #### P TT, PT #### [facility] [address] [place] [address] Dr. Dustin Hoover Creatinine [Mass/Vol] 0.61 mg/dL Normal 0.55-1.02 [facility] Comment on above: Performed By: #### P TT, PT #### [facility] [address] [place] [address] Dr. Dustin Hoover EGFR-AF SRI LANKAN >60 Normal >=60 [facility] Comment on above: Performed By: #### P TT, PT #### [facility] [address] [place] [address] Dr. Dustin Hoover EGFR-NON AF SRI LANKAN >60 Normal >=60 [facility] Comment on above: Performed By: #### P TT, PT #### [facility] [address] [place] [address] Dr. Dustin Hoover Globulin (S) [Mass/Vol] 3.7 g/dL Normal [facility] Comment on above: Performed By: #### P TT, PT #### [facility] [address] [place] [address] Dr. Dustin Hoover Glucose [Mass/Vol] 99 mg/dL Normal 74-106 [facility] Comment on above: Performed By: #### P TT, PT #### [facility] [address] [place] [address] Dr. Dustin Hoover Potassium [Moles/Vol] 4.0 mmol/L Normal 3.5-5.1 [facility] Comment on above: Performed By: #### P TT, PT #### [facility] [address] [place] [address] Dr. Dustin Hoover Protein [Mass/Vol] 7.0 g/dL Normal 6.4-8.2 [facility] Comment on above: Performed By: #### P TT, PT #### [facility] [address] [place] [address] Dr. Dustin Hoover Sodium [Moles/Vol] 138 mmol/L Normal 136-145 [facility] Comment on above: Performed By: #### P TT, PT #### [facility] [address] [place] [address] Dr. Dustin Hoover Urea nitrogen [Mass/Vol] 8.0 mg/dL Normal 7.0-18.0 [facility] Comment on above: Performed By: #### P TT, PT #### [facility] [address] [place] [address] Dr. Dustin Hoover Urea nitrogen/Creatinine [Mass ratio] 13.1 mg/mg Normal [facility] Comment on above: Performed By: #### P TT, PT #### [facility] [address] [place] [address] Dr. Dustin Hoover PROTIMEon 05-28-2022 INR Coag (PPP) [Relative time] 0.97 {INR} Normal [facility] Comment on above: Performed By: #### P TT, PT #### [facility] [address] [place] [address] Dr. Dustin Hoover INR GUIDELINES SEE BELOW Normal [facility] Comment on above: Result Comment: MARIA DOLORES RED INR: 2.0 - 3.0 CONDITIONS NOT LISTED BELOW 2.5 - 3.5 FOR PROSTHETIC HEART VALVE REPLACEMENT 2.5 - 3.5 RECURRENT THROMBOSIS Performed By: #### P TT, PT #### [facility] [address] [place] [address] Dr. Dustin Hoover PT Coag (PPP) [Time] 10.3 s Normal 9.0-11.6 [facility] Comment on above: Performed By: #### P TT, PT #### [facility] [address] [place] [address] Dr. Dustin Hoover PTTon 05-28-2022 aPTT Coag (Bld) [Time] 26.9 s Normal 22.3-36.2 [facility] Comment on above: Performed By: #### P TT, PT #### [facility] [address] [place] [address] Dr. Dustin Hoover CHLAMYDIA/GONOCOCCUS QUENTIN (SW AB/URINE/PAPon 05-27-2022 Chlamydia trachomatis, QUENTIN Negative Normal Negative [facility] Comment on above: Performed By: #### P TT, PT #### [facility] [address] [place] [address] Dr. Dustin Hoover Neisseria gonorrhoeae, QUENTIN Negative Normal Negative [facility] Comment on above: Performed By: #### P TT, PT #### [facility] [address] [place] [address] Dr. Dustin Hoover DHEA SERUMon 05-27-2022 Dehydroepiandrosterone (DHEA) 382 ng/dL Normal 31-701 [facility] Comment on above: Performed By: #### P TT, PT #### [facility] [address] [place] [address] Dr. Dustin Hoover VAGINITIS/VAGINOSIS DNA PROB Michael 05-27-2022 Catherine species Negative Normal Negative [facility] Comment on above: Performed By: #### V AGINT #### [facility] [address] [place] [address] Dr. Dustin Hoover Gardnerella vaginalis Positive Abnormal Negative [facility] Comment on above: Performed By: #### V AGINT #### [facility] [address] [place] [address] Dr. Dustin Hoover Trichomonas vaginalis Positive Abnormal Negative [facility] Comment on above: Performed By: #### V AGINT #### [facility] [address] [place] [address] Dr. Dustin Hoover DHEA-SULFATEon 05-26-2022 DHEA-Sulfate 48.3 ug/dL Critically low 57.3-279.2 [facility] Comment on above: Performed By: #### D CALLIEUL #### [facility] [address] [place] [address] Dr. Dustin Hoover FSHon 05-26-2022 FSH 14.7 mIU/mL Normal [facility] Comment on above: Result Comment: Adul t Female: Follicular phase 3.5 - 12.5 Ovulation phase 4.7 - 21.5 Luteal phase 1.7 - 7.7 Postmenopausal 25.8 - 134.8 Performed By: #### P TT, PT #### [facility] [address] [address] [address] Dustin Hoover HEPATITIS PANEL, ACUTEon HBsAg Screen Negative Normal Negative [facility] Comment on above: Performed By: #### H EPACUT #### [facility] [address] [place] [address] Dr. Dustin Hoover HCV AB Non-Reactive Normal Non Reactive [facility] Comment on above: Performed By: #### H EPACUT #### [facility] [address] [address] [address] Dustin Hoover Hep A Ab, IgM Negative Normal Negative [facility] Comment on above: Performed By: #### H EPACUT #### [facility] [address] [address] [address] Dustin Hoover Hep B Core Ab, IgM Negative Normal Negative [facility] Comment on above: Performed By: #### H EPACUT #### [facility] [address] [address] [address] Dustin Hoover Interpretation: Comment Normal [facility] Comment on above: Result Comment: Not infected with HCV unless early or acute infection is suspected (which may be delayed in an immunocompromised individual), or other evidence exists to indicate HCV infection. Performed By: #### H EPACUT #### [facility] [address] [place] [address] Dr. Dustin Hoover HIV 1 AND 2 WITH REFLEXon HIV Screen 4th Generation wRfx Non-Reactive Normal Non Reactive [facility] Comment on above: Result Comment: HIV Negative HIV-1/HIV-2 antibodies and HIV-1 p24 antigen were NOT detected. There is no laboratory evidence of HIV infection. Performed By: #### H IV12 #### [facility] [address] [place] [address] Dr. Dustin Hoover LUTEINIZING HORMONE (LH)on 0 05-26-2022 LH 41.0 mIU/mL Normal [facility] Comment on above: Result Comment: Adul t Female: Follicular phase 2.4 - 12.6 Ovulation phase 14.0 - 95.6 Luteal phase 1.0 - 11.4 Postmenopausal 7.7 - 58.5 Performed By: #### L BCLH #### [facility] [address] [place] [address] Dr. Dustin Hoover RPR QUANTon 05-26-2022 Rapid Plasma Reagin, Quant Non-Reactive Normal NonRea<1:1 [facility] Comment on above: Result Comment: Plea se Note: This test does not meet current guidelines for screening and diagnosis of syphilis. This test is intended for following treatment response in patients being treated for syphilis infection. To screen for syphilis infection, a reflex cascade that includes both RPR and a treponema-specific assay should be utilized, such as Treponema pallidum (Syphilis) Screening [place] (453613) or Rapid Plasma Reagin (RPR) Test With Reflex to Quantitative RPR and Confirmatory Treponema pallidum Antibodies (450329). Performed By: #### P TT, PT #### [facility] [address] [place] [address] Dr. Dustin Hoover CBC AUTO DIFFon 05-25-2022 BASO # 0.1 103/ul Normal 0.0-0.1 [facility] Comment on above: Performed By: #### C BC #### [facility] [address] [place] [address] Dr. Dustin Hoover Basophils/100 WBC (Bld) 0.7 % Normal 0.2-2.0 [facility] Comment on above: Performed By: #### C BC #### [facility] [address] [place] [address] Dr. Dustin Hoover EO # 0.5 103/ul Normal 0.0-0.7 [facility] Comment on above: Performed By: #### C BC #### [facility] [address] [place] [address] Dr. Dustin Hoover Eosinophils/100 WBC (Bld) 2.6 % Normal 0.9-7.0 [facility] Comment on above: Performed By: #### C BC #### [facility] [address] [place] [address] Dr. Dustin Hoover Erythrocyte distribution width (RBC) [Ratio] 17.2 % Critically high 11.0-15.0 [facility] Comment on above: Performed By: #### C BC #### [facility] [address] [place] [address] Dr. Dustin Hoover Hematocrit (Bld) [Volume fraction] 39.7 % Normal 36.0-48.0 [facility] Comment on above: Performed By: #### C BC #### [facility] [address] [place] [address] Dr. Dustin Hoover Hemoglobin (Bld) [Mass/Vol] 12.4 g/dL Normal 12.0-16.0 [facility] Comment on above: Performed By: #### C BC #### [facility] [address] [place] [address] Dr. Dustin Hoover IG # 0.13 10e3/ul Critically high 0.00-0.03 [facility] Comment on above: Performed By: #### C BC #### [facility] [address] [place] [address] Dr. Dustin Hoover IG % 0.7 % Critically high 0.0-0.5 [facility] Comment on above: Performed By: #### C BC #### [facility] [address] [place] [address] Dr. Dustin Hoover LYMPH # 4.1 103/ul Critically high 1.2-3.8 [facility] Comment on above: Performed By: #### C BC #### [facility] [address] [place] [address] Dr. Dustin Hoover Lymphocytes/100 WBC (Bld) 22.9 % Normal 20.5-60.0 [facility] Comment on above: Performed By: #### C BC #### [facility] [address] [place] [address] Dr. Dustin Hoover MANUAL DIFF REQ NO Normal [facility] Comment on above: Performed By: #### C BC #### [facility] [address] [place] [address] Dr. Dustin Hoover MCH (RBC) [Entitic mass] 23.8 pg Critically low 26.7-34 .0 [facility] Comment on above: Performed By: #### C BC #### [facility] [address] [place] [address] Dr. Dustin Hoover MCHC (RBC) [Mass/Vol] 31.2 g/dL Normal 29.9-35.2 [facility] Comment on above: Performed By: #### C BC #### [facility] [address] [place] [address] Dr. Dustin Hoover MCV (RBC) [Entitic vol] 76.2 fL Critically low 81.0-99. 0 [facility] Comment on above: Performed By: #### C BC #### [facility] [address] [place] [address] Dr. Dustin Hoover MONO # 1.3 103/ul Critically high 0.3-0.8 [facility] Comment on above: Performed By: #### C BC #### [facility] [address] [place] [address] Dr. Dustin Hoover Monocytes/100 WBC (Bld) 7.0 % Normal 1.7-12.0 [facility] Comment on above: Performed By: #### C BC #### [facility] [address] [place] [address] Dr. Dustin Hoover NEUT # 11.9 103/ul Critically high 1.4-6.5 [facility] Comment on above: Performed By: #### C BC #### [facility] [address] [place] [address] Dr. Dustin Hoover Neutrophils/100 WBC (Bld) 66.1 % Normal 43.0-75.0 [facility] Comment on above: Performed By: #### C BC #### [facility] [address] [place] [address] Dr. Dustin Hoover Platelet mean volume (Bld) [Entitic vol] 10.1 fL Normal 9.5-13.5 [facility] Comment on above: Performed By: #### C BC #### [facility] [address] [place] [address] Dr. Dustin Hoover PLT 499 103/ul Critically high 150-450 [facility] Comment on above: Performed By: #### C BC #### [facility] [address] [place] [address] Dr. Dustin Hoover RBC 5.21 106/ul Normal 4.20-5.40 [facility] Comment on above: Performed By: #### C BC #### [facility] [address] [place] [address] Dr. Dustin Hoover WBC 18.0 103/ul Critically high 4.0-11.0 [facility] Comment on above: Performed By: #### C BC #### [facility] [address] [place] [address] Dr. Dustin Hoover FREE T4on 05-25-2022 Free T4 [Mass/Vol] 0.82 ng/dL Normal 0.76-1.46 [facility] Comment on above: Performed By: #### P TT, PT #### [facility] [address] [place] [address] Dr. Dustin Hoover GLYCOHEMOGLOBIN A1Con 2022 ADA RECOMMENDATION SEE BELOW Normal [facility] Comment on above: Result Comment: ADA RECOMMENDED LIMIT 4.0 - 6.0 ADA THERAPEUTIC TARGET < 7.0 ACTION SUGGESTED > 7.0 Performed By: #### A 1C #### [facility] [address] [place] [address] Dr. Dustin Hoover Glucose [Mass/Vol] 108 mg/dL Normal [facility] Comment on above: Performed By: #### A 1C #### [facility] [address] [place] [address] Dr. Dustin Hoover HbA1c (Bld) [Mass fraction] 5.4 % Normal 4.5-6.2 [facility] Comment on above: Performed By: #### A 1C #### [facility] [address] [place] [address] Dr. Dustin Hoover PREG QUANT HCGon 05-25-2022 HCG QUANT 1 mIU/mL Normal [facility] Comment on above: Performed By: #### P TT, PT #### [facility] [address] [place] [address] Dr. Dustin Hoover HCG RANGE SEE BELOW Normal [facility] Comment on above: Result Comment: 5-50 0.2-1 WEEK 50-500 1-2 WEEKS 100-5,000 2-3 WEEKS 500-10,000 3-4 WEEKS 1,000-50,000 4-5 WEEKS 10,000-100,000 5-6 WEEKS 15,000-200,000 6-8 WEEKS 10,000-100,000 2-3 MONTHS Performed By: #### P TT, PT #### [facility] [address] [place] [address] Dr. Dustin Hoover TSHon 05-25-2022 TSH 2.768 uIU/mL Normal 0.358-3.740 [facility] Comment on above: Performed By: #### P TT, PT #### [facility] [address] [place] [address] Dr. Dustin Hoover Vital Signs Date Time Vital Sign Value Performing Clinician Facility 06-25-2023 15:14-0400 Body temperature 98.1 [degF] [facility] 06-25-2023 15:14-0400 Diastolic blood pressure 88 mm[Hg] [facility] 06-25-2023 15:14-0400 Heart rate 105 /min [facility] 06-25-2023 15:14-0400 Respiratory rate 18 /min [facility] 06-25-2023 15:14-0400 SaO2% (BldA) [Mass fraction] 95 % [facility] 06-25-2023 15:14-0400 Systolic blood pressure 119 mm[Hg] [facility] 06-23-2023 14:22-0400 Body height 157.48 cm [facility] 06-22-2023 22:00-0400 Body weight 147.41 kg [facility] 06-03-2023 21:42-0400 Body mass index (BMI) [Ratio] 59.55 kg/m2 Butch Furlong DO Work Phone: [facility] 06-03-2023 21:42-0400 Body weight 147.69 kg Butch Furlong DO Work Phone: [facility] 05-28-2023 18:56-0400 Body mass index (BMI) [Ratio] 61.16 kg/m2 Butch Furlong DO Work Phone: [facility] 05-28-2023 18:56-0400 Body weight 151.68 kg Butch Furlong DO Work Phone: [facility] [employer] 05-28-2023 18:56-0400 Diastolic blood pressure 68 mm[Hg] [facility] 05-28-2023 18:56-0400 Heart rate 71 /min Butch Furlong [facility] 05-28-2023 18:56-0400 Systolic blood pressure 104 mm[Hg] Butch Furlong DO Work Phone: [facility] 05-18-2023 19:08-0400 Body mass index (BMI) [Ratio] 60.36 kg/m2 Megan Cash WOOD HEEL FITTER MACHINE-COBOL PROGRAMMER [facility] 05-18-2023 19:08-0400 Body temperature 98.01 [degF] Megan Cash WOOD HEEL FITTER MACHINE-COBOL PROGRAMMER [facility] 05-18-2023 19:08-0400 Body weight 149.69 kg Megan Cash WOOD HEEL FITTER MACHINE-COBOL PROGRAMMER Work Phone: [facility] 05-18-2023 19:08-0400 Diastolic blood pressure 68 mm[Hg] Megan JEWELL Work Phone: [facility] [employer] 05-18-2023 19:08-0400 Heart rate 71 /min Megan JEWELL Work Phone: [facility] [employer] 05-18-2023 19:08-0400 Respiratory rate 18 /min Megan JEWELL Work Phone: [facility] [employer] 05-18-2023 19:08-0400 SaO2% (BldA) [Mass fraction] 98 % Megan JEWELL Work Phone: [facility] [employer] 05-18-2023 19:08-0400 Systolic blood pressure 104 mm[Hg] Megan JEWELL Work Phone: [facility] [employer] 05-14-2023 18:39-0500 Body mass index (BMI) [Ratio] 57.5 kg/m2 Butch Furlong DO [facility] 05-14-2023 18:39-0500 Body temperature 97.59 [degF] Butch Furlong DO [facility] 05-14-2023 18:39-0500 Body weight 142.61 kg Butch Furlong DO Work Phone: [facility] [employer] 05-14-2023 18:39-0500 Diastolic blood pressure 68 mm[Hg] Butch Furlong DO [facility] 05-14-2023 18:39-0500 Heart rate 90 /min Butch Furlong DO Work Phone: [facility] [employer] 05-14-2023 18:39-0500 Respiratory rate 18 /min Butch Furlong DO [facility] 05-14-2023 18:39-0500 SaO2% (BldA) [Mass fraction] 98 % Butch Furlong DO Work Phone: [employer] 05-14-2023 18:39-0500 Systolic blood pressure 110 mm[Hg] Butch Furlong DO [facility] 04-30-2023 17:38-0500 Body height 157.5 cm Butch Furlong DO [facility] 04-30-2023 17:38-0500 Body mass index (BMI) [Ratio] 56.53 kg/m2 But[facility] Fur[facility] 04-30-2023 17:38-0500 Body temperature 97.81 [degF] Butch Furlong DO [facility] 04-30-2023 17:38-0500 Body weight 140.2 kg Butch Furlong DO [facility] 04-30-2023 17:38-0500 Diastolic blood pressure 62 mm[Hg] Butch Furlong DO [facility] 04-30-2023 17:38-0500 Heart rate 106 /min Butch Furlong DO [facility] 04-30-2023 17:38-0500 Respiratory rate 20 /min Butch Furlong DO [facility] 04-30-2023 17:38-0500 SaO2% (BldA) [Mass fraction] 91 % Butch Furlong DO [facility] 04-30-2023 17:38-0500 Systolic blood pressure 99 mm[Hg] Butch Furlong DO [facility] Encounters Encounter Date Encounter Type Care Provider Facility Start: 10-22-2023 End: 10-22-2023 ambulatory NON STAFF [facility] Work Phone: Start: 10-22-2023 End: 10-22-2023 Departed Referred [facility] Start: 09-30-2023 End: 09-30-2023 Patient encounter [...] Not Available Start: 07-08-2023 End: 07-08-2023 ambulatory [facility] Start: 2023 End: 2023 ambulatory TRAV VALDOVINOS Not Available Start: 06-23-2023 Non-patient / Non-visit [facility] Work Phone: Start: 06-22-2023 End: 06-25-2023 Evaluation and management of inpatient [facility] Work Phone: Start: 06-22-2023 End: 06-22-2023 Emergency department patient visit BUTCH Jane OLIVA [facility] Start: 06-22-2023 ambulatory Joseph Mcneil acility:[facility] Start: 06-03-2023 ambulatory Butch robins DO Work [...] present Start: 05-18-2023 Continuing Care Megan ga APRN-COBOL PROGRAMMER Work Phone: [facility] - [...] TB lung, latent; Schizophrenic disorder ([facility]); Class 3 severe obesity due to excess calories without serious comorbidity with body mass index (BMI) of 50.0 to 59.9 in adult ([facility]) Start: 04-26-2023 Registered [facility] Start: 07-23-2022 ambulatory DEMETRIA SHAMMO Facility:H 1 Start: 06-30-2022 ambulatory DEMETRIA SHAMMO Facility:H 1 Start: 06-16-2022 End: 06-17-2022 ambulatory DEMETRIA SHAMMO Facility:H1 Start: 06-09-2022 ambulatory DEMETRIA SHAMMO Facility:H 1 Start: 06-02-[address] MAZIN MORENO . Facili ty:H1 Start: 05-29-2022 Encounter for genera l adult medical examination without abnormal findings DEMETRIA SHAMMO [facility] Start: 05-28-2022 End: 05-28-[address] [...] aspir &/inj major jt/bursa w/o us Tang Slona PA-C Work Phone: Start: 09-03-2023 Radex hips bilateral with pelvis minimum 5 views Tang Sloan PA-C Work Phone: Plan of Treatment Date Care Activity Detail Author Start: 05-28-2032 DTaP,Tdap and Td Vaccines (2 - Td or Tdap) DTaP,Tdap and Td Vaccines (2 - Td or Tdap) [facility] Start: 05-28-2032 Urine microalbumin profile DTaP,Tdap,Td Vaccine (2 - Td or Tdap) [facility] Start: 03-09-2026 Screening for malign ant neoplasm of cervix Cervical Cancer Screening [facility] Start: 05-27-2024 Adult BMI Screening Adult BMI Screen ing [facility] Start: 05-23-2024 Tobacco Screening Tobacco Screening [facility] Start: 05-20-2024 Tobacco Screening Tobacco Screening [facility] Start: 05-17-2024 Adult BMI Screening Adult BMI Screen ing [facility] Start: 04-30-2024 Adult BMI Screening Adult BMI Screen ing [facility] Start: 04-30-2024 Tobacco Screening Tobacco Screening [facility] Start: 01-31-2024 Tobacco Screening Tobacco Screening [facility] Start: 11-07-2023 Covid-19 Vaccine ( season) Covid-19 Vaccine ( season) [facility] Start: 11-07-2023 Influenza vaccination [facility] Start: 10-22-2023 [facility] Start: 09-30-2023 End: 09-30-2023 Patient encounter procedure 09/30/2023 9:15 AM EDT Office Visit Orthopaedics [address] [place] [address] Edward Arita, [address] [place] [address] Bilateral USGI Hip injections Orthopaedics Comment on above: Bilateral USGI Hip i njections Start: 06-25-2023 [facility] Start: 06-24-2023 Referral to landscape painter [facility] Start: 06-24-2023 Referral to clinical carton filler [facility] Start: 06-22-2023 Hospital admission [facility] Start: 06-22-2023 [facility] Start: 03-08-2023 Behavioral Health Screening Behavioral Health Screening [facility] Start: 11-06-2022 Covid-19 Vaccine ( season) Covid-19 Vaccine () [facility] Start: 11-06-2022 Influenza vaccination Influenza Vacc ine [facility] Start: 2019 Screening for malign ant neoplasm of breast Mammogram Screening [facility] Start: 06-28-2000 Screening for malign ant neoplasm of cervix Pap Smear [facility] Start: 06-28-1998 Hepatitis B Vaccine (1 of 3 - 19+ 3-dose series) Hepatitis B Vaccine (1 of 3 - 19+ 3-dose series) [facility] Start: 06-28-1997 Adult BMI Follow Up Plan Adult BMI Follow Up Plan [facility] Start: 06-28-1997 Anxiety Screening Anxiety Screening [facility] Start: 06-28-1997 Depression Screening Depression Scre ing [facility] Start: 06-28-1997 HIV screening HIV Screening [facility] Start: 1991 Depression Screening Depression Scre ing [facility] Start: 06-28-1985 Pneumococcal vaccination Pneumococcal Vaccine (1 of 2 - PCV) [facility] Start: 1979 Tobacco Counseling Tobacco Counselin g [facility] Patient Education Depression, Ad ult (DC) [facility] Behavioral Health DC Instructions [facility] Work Phone: Patient referral [facility] Work Phone: Immunizations Immunization Date Immunization Notes Care Provider Fa natalie 05-28-2022 tetanus toxoid, redu radha diphtheria toxoid, and acellular pertussis vaccine, adsorbed Butch Oliva DO Work Phone: [facility] Payers Date Payer Category Payer Private Health Insurance HUMANA HU[employer]NA MEDICAID [facility] [id number] 2023-Present [address] [address] [place] [address] Medicaid [id number] 2023 Self-pay 2022 Medicaid [facility] [place] [id number] 2022-Present [phone] [address] [place] [address] [id number] 2006 Medicaid [id number] 1979 Unknown [id number] 2.16.840.1.701147.3.579.2.5 1979 Unknown [id number] 2.16.840.1.588301.3.579.2.5 1979 Unknown [id number] 2.16.840.1.376743.3.579.2.5 1979 Unknown [id number] 2.16.840.1.753136.3.579.2.5 1979 Unknown [id number] 2.16.840.1.317305.3.579.2.5 93 1979 Unknown [id number] 2.16.840.1.227697.3.579.2.5 1979 Unknown [id number] 2.16.840.1.774830.3.579.2.5 93 1979 Unknown [id number] 2.16.840.1.847228.3.579.2.5 93 1979 Unknown [id number] 2.16.840.1.706990.3.579.2.5 1979 Unknown [id number] 2.16.840.1.410543.3.579.2.5 1979 Unknown [id number] 2.16.840.1.078721.3.579.2.5 1979 Unknown [id number] 2.16.840.1.960335.3.579.2.1 1979 Unknown [id number] 2.16.840.1.287294.3.579.2.1 286 1979 Unknown [id number] 2.16.840.1.894381.3.579.2.1 259 1979 Unknown [id number] 2.16.840.1.166012.3.579.2.1 259 1979 Unknown [id number] 2.16.840.1.426400.3.579.2.1 259 1979 Unknown [id number] 2.16.840.1.545641.3.579.2.1 259 1979 Unknown [id number] 2.16.840.1.017265.3.579.2.1 259 1979 Unknown [id number] 2.16.840.1.462206.3.579.2.1 259 Unknown [id number] 2.16.840.1.318642.3.579.2.5 31 Unknown [id number] 2.16.840.1.049127.3.579.2.5 31 Unknown [id number] 2.16.840.1.962488.3.579.2.5 31 Social History Date Type Detail Facility Start: 05-17-2007 End: 04-30-2023 Tobacco smoking status KSIS Smokes tobacco daily [facility] Start: 03-08-1989 History of tobacco use Cigarette Smoker [facility] Start: 04-30-2023 End: 09-03-2023 Cigarettes smoked current (pack per day) - Reported 0.3 [facility] History of tobacco use Passive smoker [facility] Start: 04-30-2023 Tobacco use and exposure Smokeless tobacco non-user [facility] Start: 04-30-2023 End: 05-24-2023 Alcohol intake Ex-drinker (finding) [facility] Start: 04-30-2023 End: 09-03-2023 Tobacco use panel [facility] In the past 12 month s, has lack of transportation kept you from medical appointments or from getting medications? Yes [facility] Start: 04-30-2023 Tobacco Comment Started smoking at 9 years of age [facility] Start: 1980 Sex Assigned At Not on file [facility] Start: 06-24-2023 Tobacco smoking status NHIS Smoker (finding) [facility] Start: 1980 Sex Assigned At Female [facility] Start: 07-07-2010 Alcohol intake Current non-drinker of alcohol (finding) [facility] Tobacco smoking stat us NHIS Tobacco smoking consumption unknown [facility] Goals Date Patient Goal Desired Activity /State Functional Status Date Assessment Result Facility 06-25-2023 Functional status Patient at Baseline [facility] Work Phone: Mental Status Date Assessment Result Facility 06-25-2023 Cognitive function Cognitive Sta tus Patient at Baseline [facility] Work Phone: Clinical Notes 05-21-2022 [...] hip joints Informed Consent Consent Obtained: Verbal [place] Protocol A moment to CARE was completed. [...] Arita DO 09/30/2023 documented in this encounter [facility] 09-03-2023 Instructions Tang Sloan PA-C - [...] MUCH MORE DANGEROUS. documented in this encounter [facility] 09-03-2023 Note HNO ID: [id number] Author: TANG SLOAN PA-C Service: ? Author Type: Physician Saxophone Assembler Type: Progress Notes Filed: 09/07/2023 16:29 Note [...] She reports that she moved here from [place] and moved in with her sisters in the last few years but moved into a penitentiary in the last year when she could not get around or do self-care. She is now living in a penitentiary facility. Has significant pain in her back [...] gabapentin and methadone all given at the penitentiary without great pain control. She has done physical therapy as well. She has schizoaffective disorder but otherwise is fairly healthy. She notes that her weight was 268 when she entered the penitentiary but is now 320. Pain level is [...] Significant tenderness o (more content not included)... [facility] 09-03-2023 History of Presen t illness [...] She reports that she moved here from [place] and moved in with her sisters in the last few years but moved into a penitentiary in the last year when she could not get around or do self-care. She is now living in a penitentiary facility. Has significant pain in her back [...] gabapentin and methadone all given at the penitentiary without great pain control. She has done physical therapy as well. She has schizoaffective disorder but otherwise is fairly healthy. She notes that her weight was 268 when she entered the penitentiary but is now 320. Pain level is [...] been 268 pounds when she entered the penitentiary and is now 320. She needs to [...] trochanteric bursa Informed Consent Consent Obtained: Verbal [place] Protocol A moment to CARE was completed. [...] TIME: 9:09 AM documented in this encounter [facility] 09-03-2023 Note HNO ID: [id number] Author: JULY MORRISON RT(R) Service: ? Author [...] PATIENT PRESENTS WITH AN IMPLANTABLE OR ATTACHED CEMENT PAVER: No RADIOLOGY DEPARTMENT: General X-ray: Exam(s) Completed: Pelvis X-Ray: Pelvis with Hip Bilateral PERIPHERAL IV DATA: Not applicable SIGNED BY: RT Devi(R) September 03, 2023 8:51 AM [facility] 09-03-2023 History of Presen t illness [...] PATIENT PRESENTS WITH AN IMPLANTABLE OR ATTACHED CEMENT PAVER: No RADIOLOGY DEPARTMENT: General X-ray: Exam(s) Completed: Pelvis X-Ray: Pelvis with Hip Bilateral PERIPHERAL IV DATA: Not applicable SIGNED BY: RT Devi(R) September 03, 2023 8:51 AM documented in this encounter [facility] 06-25-2023 Discharge summary Note Date/Time June 25, 2023 7:11am [facility] [address] [place] [address] Discharge Summary Signed Patient: Jennifer Mendes MR#: [id number] : 1980 Acct:[id number] Age/Sex: 42 / F Adm Date: 4 Loc: Room: [address] [place] [address]: Joseph Tello MD Copies to: [...] milieu. She has been working with case manager specialist on her aftercare she agreed to continue [...] Discharge Plan Discharge Plan Patient Disposition: terminal block assembler [place] Care/Resident Activity: With Assist Diet: Regular Additional Instructions: Important Contact Information You can call [facility] at [phone] any time day or night if you have emergent questions or question regarding discharge instructions. If at any time you are feeling an increase inyour psychiatric symptoms, call your physician or behavioral healthcare provider. If any time you have thoughts of harming yourself or others contact one of the following: Call 8 (available 28/09) Crisis Text Line (available 28/09) text 4HOPE to [phone] [facility] Hope Line (available 8 a.m. Midnight) call [phone] ([phone]) Prescriptions: Continued aripiprazole 20 mg tablet 20 [...] signed by Joseph Tello MD> 06/25/23 0711 [facility] Work Phone: 1(303) 214-333104-19-2024 Consult note Author Linsey Pradhan [facility] June 24, 2023 11:55pm Note Date/Time June 24, 2023 12: 47pm [facility] [address] [place] [address] Hospitalist Consult Note Signed Patient: Jennifer Mendes MR#: [id number] : 1980 Acct:[id number] Age/Sex: 42 / F Adm Date: 4 Loc: Room: [address] [place] [address] Type: ADM IN Attending Dr: Joseph Tello MD Copies to: NON STAFF MD Anita Hull, WOOD HEEL FITTER MACHINE Linsey Pradhan MD~ HPI DATE OF CONSULTATION: [...] Tablet PO 06/22/24 08:59 20 mg DAILY SUASNNA Administration Benztropine Mesylate 0.5 mg 06/22/23 19:38 [...] <Electronically signed by Linsey Pradhan MD> 06/24/23 8733 [facility] Work Phone: 1(477) 487-578504-18-2024 Progress note Author Joseph martinez [facility] June 24, 2023 6:40am Note Date/Time June 24, 2023 6:4 0am [facility] [address] [place] [address] Psychiatry Progress Note Signed Patient: Jennifer Mendes MR#: [id number] : 1980 Acct:[id number] Age/Sex: 42 / F Adm Date: 4 Loc: Room: [address] [place] [address] Type : ADM IN Attending Dr: Joseph [...] signed by Joseph Tello MD> 06/24/23 0640 [facility] Work Phone: 1(586) 596-971204-17-2024 History and physical note Author Joseph martinez [facility] June 23, 2023 9:03am Note Date/Time June 23, 2023 8:5 8am [facility] [address] [place] [address] Psychiatry H&P Signed Patient: Jennifer Mendes MR#: [id number] : 1980 Acct:[id number] Age/Sex: 42 / F Adm Date: 4 Loc: 1S Room: [address] [place] [address] Type: ADM IN Attending Dr: Joseph Tello [...] signed by Joseph Tello MD> 06/23/23 0903 [facility] Work Phone: 1(419) 295-733203-28-2024 History of Present illness Narrative* Butch Jane Concepcion, DO - 06/03/2023 9:42 PM EDT Patient Name: Jennifer Mendes Date of : 1980 Date of Service: 06/03/2023 Facility: [facility] Type of Visit: Skilled Visit Subjective Jennifer Mendes is a 42 y.o. female seen today at group home facility for acute visit. Jennifer She [...] BY: Butch Oliva DO [facility] History of Present illness Narrative* Butch Oliva DO - 05/28/2023 11:59 PM EDT Patient Name: Jennifer Mendes Date of : 1980 Date of Service: 05/28/2023 Facility: [facility] Type of Visit: Skilled Visit Subjective Jennifer Mendes is a 42 y.o. female seen today at group home facility for therapy visit. Jennifer is [...] BY: Butch Oliva DO [facility] History of Present illness Narrative* Megan Cash, WOOD HEEL FITTER MACHINE-COBOL PROGRAMMER - 05/18/2023 11:59 PM EDT Images from the original note were not included. Patient Name: Jennifer Meneds Date of : 1980 Date of Service: 05/18/2023 Facility: [facility] Type of Visit: Skilled Visit Subjective Jennifer Mendes is a 42 y.o. female seen today at group home facility for Chief Complaint Patient presents with Alf . Is attending physical therapy. States sometimes [...] Anemia Anxiety Arthritis Back pain Bipolar disorder ([facility]) Depression Latent tuberculosis infection Obesity Pneumonia Substance abuse ([facility]) Past Surgical History: [...] current episode mixed, current episode severity unspecified ([facility]) 3. Primary osteoarthritis of both hips 4. Schizophrenic disorder ([facility]) 5. Class 3 severe obesity due to excess calories with serious comorbidity and body mass index (BMI)of 60.0 to 69.9 in adult ([facility]) 6. Full code status Spinal stenosis of lumbar region Awaiting Medicaid approval to pursue pain management. Referral done, sent to [facility]. -Pain controlled with Oxycodone, [...] Napoles APRN-CNP 05/24/23 1753 documented in this encounterMarion [facility] History of Present illness Narrative* Butch Oliva, DO - 05/14/2023 6:37 PM EST Patient Name: Jennifer Mendes Date of : 1980 Date of Service: 05/14/2023 Facility: [facility] Type of Visit: Skilled Visit Subjective Jennifer Mendes is a 42 y.o. female seen today at group home facility for therapy visit. Jennifer is [...] current episode severity unspecified ([facility]) 6. Schizophrenic disorder ([facility]) Medically stable. Continue therapy to reach MMI. Await approval for medicaid so she can go to pain management. Other medications reviewed and are medically necessary. ELECTRONICALLY SIGNED BY: Butch Oliva DO documented in this encounterMarion [facility]02-[facility] History of Present illness Narrative* Butch Oliva DO - 04/30/2023 5:37 PM EST Patient Name: Jennifer Mendes Date of : 1980 Date of Service: 04/30/2023 Facility: [facility] Type of Visit: Admission H&P Subjective Jennifer Mendes is a 42 y.o. female seen today at group home facility for admission H&P. jennifer presents to [facility] from the [facility] where she was treated for [...] scheduled to see a neurosurgeon up in [place] but then her insurance lapsed and the [...] cellulitis Anemia Anxiety Bipolar disorder ([facility]) Depression Latent tuberculosis infection Pneumonia Past [...] current episode mixed, current episode severity unspecified ([facility]) 4. Anxiety 5. Primary osteoarthritis of both hips 6. TB lung, latent 7. Schizophrenic disorder ([facility]) 8. Class 3 severe obesity due to excess calories without serious comorbidity with body mass index (BMI) of 50.0 to 59.9 in adult ([facility]) Admit to [facility] for therapy. She is motivated to improve. She will need pain management and maybe neurosurgery. Fair to good rehab potential. Full code. Continue medications from the hospital. She was treated for TB with INH per pt. Continue doxycycline for syphilis. ELECTRONICALLY SIGNED BY: Butch Oliva DO documented in this encounterMarion Hospital04-11-2023 NoteCONSULTATION CONSULTATION DATE: 06/16/2022 TO: [place]ON [...] our patients to inform us about any uutc-qkn-lkrvpab medications or herbal remedies/nutritional supplements/alternative remedies. 2. [...] treatment options with their primary care provider.[facility] [id number] NotePROCEDURE: XR HIP LT 2 3V W PELVIS HISTORY: Pain ; left hip pain after falling COMPARISON: None. FINDINGS: BONES:Complete loss of the hip joint spaces bilaterally with subchondral sclerosis, dlxv-br-xcde articulation, and remodeling of the femoral heads and acetabulum. SOFT TISSUES:No visible soft tissue swelling. EFFUSION:None visible. OTHER: Negative. IMPRESSION: 1. No acute bone abnormality. 2. Advanced degenerative changes of hip joints bilaterally. Electronically authenticated by: JEAN CARLOS MEDINA Date: 2022-05-21 11:47[facility] Diagnosis Spinal stenosis of lumbar region, unspecified whether neurogenic claudication present- Primary Syphilis (acquired) Unspecified syphilis Bipolar affective disorder, current episode mixed, current episode severity unspecified ([facility]) Anxiety Anxiety state, unspecified Primary osteoarthritis of both hips TB lung, latent Schizophrenic disorder ([facility]) Unspecified schizophrenia, unspecified condition Class 3 severe obesity due to excess calories without serious comorbidity with body mass index (BMI) of 50.0 to 59.9 in adult ([facility]) documented in this encounter [facility]* Diagnosis Spinal stenosis of lumbar region, unspecified whether neurogenic claudication present- Primary Bilateral primary osteoarthritis of hip Muscle weakness (generalized) Other abnormalities of gait and mobility Bipolar affective disorder, current episode mixed, current episode severity unspecified ([facility]) Schizophrenic disorder ([facility]) Unspecified schizophrenia, unspecified condition documented in this encounter [facility]* Diagnosis Spinal stenosis of lumbar region, unspecified whether neurogenic claudication present- Primary Bipolar affective disorder, current episode mixed, current episode severity unspecified ([facility]) Primary osteoarthritis of both hips Schizophrenic disorder ([facility]) Unspecified schizophrenia, unspecified condition Class 3 severe obesity due to excess calories with serious comorbidity and body mass index (BMI) of 60.0 to 69.9 in adult ([facility]) Full code status documented in this encounter [facility]* Diagnosis Bilateral primary osteoarthritis of hip- Primary Muscle weakness (generalized) Other abnormalities of gait and mobility Spinal stenosis of lumbar region, unspecified whether neurogenic claudication present documented in this encounter [facility]* Diagnosis Pedal edema- Primary Edema Intertrigo Other specified erythematous condition Morbid obesity ([facility]) Morbid obesity documented in this encounter [facility]* Diagnosis Onset Date Resolution Status Chronic pain acute Generalized anxiety disorder acute Major depressive disorder, recurrent, moderate acute [facility] Work Phone: Evaluation note* Diagnosis Primary osteoarthritis [...] region and thigh documented in this encounter [facility]* Diagnosis Primary osteoarthritis of both hips- Primary Primary localized osteoarthrosis, pelvic region and thigh documented in this encounter [facility]ud[facility] noteNo assessment information availableAvita Health [facility] Work Phone: Evaluation note* Diagnosis Pain in left hip Pain in joint, pelvic region and thigh Pain in right hip Pain in joint, pelvic region and thigh documented in this encounter [facility] HospitalInstructionsNot on filedocumented in this encounterProFlower Hospital SystemInstructions* Attachments The following attachments cannot be sent through Care Everywhere. * Bipolar disorder (Pashto) documented in this encounterProFlower Hospital SystemInstructionsNot on file documented in this encounterProFlower Hospital SystemInstructionsNot on file documented in this encounterProMorrow County HospitalReason for referral (narrative)* Diagnostic Procedure Only (Routine) - Closed Specialty Diagnoses / Procedures Referred By Nazario sanches Referred To Contact XR IMAGING Diagnoses Pain in left hip Pain in right hip Procedures XR HIP BILATERAL 5V PEL/AP/LAT EACH HIP RADEX HIPS BILATERAL WITH PELVIS MINIMUM 5 VIEWS Tang Sloan PA-C [address] [place] [address] [place] [address] Referral ID Status Reason Start Date Expiration Date V isits Requested Visits Authorized [id number] Closed Auto-Generate d Referral 08/30/2023 09/28/2024 1 1 [facility] for visit Narrative* Diagnostic Procedure Only (Routine) - Closed Specialty Diagnoses / Procedures Referred By Contac t Referred To Contact XR IMAGING Diagnoses Pain in left hip Pain in right hip Procedures XR HIP BILATERAL 5V PEL/AP/LAT EACH HIP RADEX HIPS BILATERAL WITH PELVIS MINIMUM 5 VIEWS Tang Sloan PA-C [address] [place] [address] [place] [address] Referral ID Status Reason Start Date Expiration Date V isits Requested Visits Authorized [id number] Closed Auto-Generate d Referral 08/30/2023 09/28/2024 1 1 [facility] Summary Purpose Family History No Family [...] HIGH COMPLEX 45 MINS Tang Sloan PA-C [address] [place] [address] [facility] [address] [address] Referral ID Status Reason Start Date Expiration Date Visits Requested Visits Authorized [id number] Pending Review Auto-Generat ed Referral 09/03/2023 09/02/2024 1 1 Specialty Diagnoses / Procedures Referred By Nazario sanches Referred To Contact XR IMAGING Diagnoses Pain in left hip Pain in right hip Procedures XR HIP BILATERAL 5V PEL/AP/LAT EACH HIP RADEX HIPS BILATERAL WITH PELVIS MINIMUM 5 VIEWS Tang Sloan PA-C [address] [place] [address] [place] [id number] Referral ID Status Reason Start Date Expiration Date V isits Requested Visits Authorized [id number] Closed Auto-Generate d Referral 08/30/2023 09/28/2024 1 1 Additional Source Comments INFORMATION SOURCE (unrecogn ized section and content) DATE CREATED AUTHOR 07/08/2022 [facility] DATE CREATED AUTHOR AUTHOR'S ORGANIZ ATION 07/09/2023 [facility] DATE CREATED AUTHOR AUTHOR'S ORGANIZ ATION 09/09/2023 [facility] DATE CREATED AUTHOR AUTHOR'S ORGANIZ ATION 09/24/2023 [facility] EPIC DATE CREATED AUTHOR AUTHOR'S ORGANIZ ATION 10/27/2023 [facility] Care Teams (unrecognized sec tion and content) Team Status: Active Member Role Status Dates NON STAFF Primary Care Provider Active Team Status: Inactive Member Role Status Dates NON STAFF Primary Care Provider Active Start: October 22, 2023 End: October 22, 2023 Mazin Moreno DO Attending Provider Active Start : October 22, 2023 End: October 22, 2023 Leveler Relationship Specialty Start Date End Date No Pcp, [place] [address] PCP - General Family Medicine 10/30/22 Leveler Relationship Specialty Start Date End Date No Pcp, [place] [address] PCP - General Family Medicine 10/30/22 Leveler Relationship Specialty Start Date End Date No Pcp, [place] [address] PCP - General Family Medicine 10/30/22 Leveler Relationship Specialty Start Date End Date No Pcp, [place] [address] PCP - General Family Medicine 10/30/22 Leveler Relationship Specialty Start Date End Date No Pcp, [place] [address] PCP - General Family Medicine 10/30/22 Team [...] (unrecogniz ed section and content) Reason Comments Alf Reason Comments Radiology XR Reason Comments New Pain Reason Comments Injections Hip Pain Specialty Diagnoses / Procedures Referred By Contac t Referred To Contact Orthopedics / ORTHOPAEDIC SURGERY Diagnoses Bilateral USGI Hip injections Procedures SERENA INJECT 1 Tang Sloan PA-C [address] [place] [address] Edward Arita DO [address] [place] [address] Referral ID Status Reason Start Date Expiration Date V isits Requested Visits Authorized [id number] Closed Financial Clearance Not Required 09/30/2023 10/31/2023 1 1 Source Comments (unrecognize d section and content) In the event this informatio n is protected by the Federal Confidentiality of Alcohol and Drug Abuse Patient Records regulations: The Federal rules restrict any use of the information to criminally investigate or prosecute any alcohol or drug abuse patient.[facility] HospitalIn the event this information is protected by the Federal Confidentiality of Alcohol and Drug Abuse Patient Records regulations: The Federal rules restrict any use of the information to criminally investigate or prosecute any alcohol or drug abuse patient.[facility] HospitalIn the event this information is protected by the Federal Confidentiality of Alcohol and Drug Abuse Patient Records regulations: The Federal rules restrict any use of the information to criminally investigate or prosecute any alcohol or drug abuse patient.[facility] HospitalIn the event this information is protected by the Federal Confidentiality of Alcohol and Drug Abuse Patient Records regulations: The Federal rules restrict any use of the information to criminally investigate or prosecute any alcohol or drug abuse patient.[facility] Goals (unrecognized section and content) Goals [...] BE BASED ON THE PRIMARY CLINICAL RECORDS. [facility] [employer] [facility]. provides no warranty or guarantee of the accuracy or completeness of information in this document.
--- NOTE | 2023-12-22 16:14 | XR_ITS ---
The [address] [address] Patient Name: DALLAS GARRISON MRN: [id number] date: 1980 Sex: F Assigned Patient Location: [facility] Current Patient Location: Accession/Order Number: [id number] Exam Date: 12/22/2023 16:20 Report Date: 12/27/2023 07:14 At the request of: ELLIOTT OLIVA Procedure: XR lumbar spine 6V w bending EXAMINATION: XR lumbar spine 6V w bending HISTORY: Spinal Stenosis, M48.067,Spondlolithesis,M43.16 COMPARISON: No relevant comparison available. FINDINGS: BONES: levocurvature of the lumbar spine. 3 mm anterolisthesis of L2 on L3. 6 mm anterolisthesis of L3 on L4 and mild spondylosis. Moderate facet osteoarthropathy DISC SPACES: Multilevel disc space narrowing PARASPINOUS: Negative. No paraspinous abnormality is seen. OTHER: No transient spondylolisthesis XR/XR lumbar spine 6V w bending IMPRESSION: Levocurvature with multilevel spondylolisthesis No dynamic instability Electronically authenticated by: CHANDRAKANT HONEYCUTT Date: 12/27/2023 07:14
== END 2023-12-22 16:04 | disposition home or self-care (01) ==
LOC: RAD 16:05
PROVIDERS: PCP Family Medicine; Visit Provider Family Medicine
DX: M48.062 Spinal stenosis, lumbar region with neurogenic claudication (principal); M43.16 Spondylolisthesis, lumbar region
CPT/HCPCS: 72114

== ENCOUNTER 2024-01-09 13:49 | Emergency (ER) | payer MEDICAID, SELFPAY ==
[2024-01-09 14:07] VITALS: BP 125/95; PULSE 88; TEMP 36.8; O2SAT 97; BMI 58.5
--- OUTSIDE RECORDS SUMMARY | 2024-01-09 14:33 | XMS_ITS | CCD ---
Author Organization [facility] Providers Care Messaging Architect Name Role Phone SHAMMO, DEMETRIA Primary Care [...] Unavailable SHAMMO, DEMETRIA Admitting Unavailable ZIEBER, DR JAEN CARLOS Whittaker Consulting Unavailable SHAMMO, DEMETRIA Primary [...] Other Provider DO Elsa Webb Other Provider [phone] MD Amador Swain Other Provider DO [...] DO Jluis Harrell T Other Provider DO Nish Yagray Other Provider MD Rubén Ramirez P Other Provider ANA MARIA Blackwood Other Provider Unavailable Vazquez, DIRECTOR OF QUALITY CONTROL Wilda Other Provider MD Van Moore Other Provider MD Hugo Randolph Other Provider BUTCH OLIVA Primary Care Unavailable JESSICA BRADFORD Attending Unavailable CHEL RAMSEY Attending Unavailable BUTCH OLIVA Referring Unavailable BUTCH OLIVA Primary Care Unavailable Unavailable Primary Care Provider UnavailTANG Arreola Attending Unavailable TANG SLOAN Referring Unavailable TRAV VALDOVINOS Attending Unavailable TRAV VALDOVINOS Referring Unavailable TRAV VALDOVINOS Attending Unavailable MAZIN MORENO Attending Unavailable MAZIN MORENO Attending Unavailable MAZIN MORENO Attending Unavailable NON STAFF Primary Care Provider UnavailDO Mazin Roman Attending Provider [phone] NON STAFF Primary Care Unavailable Joseph Tello Attending Unavailab Joseph Cavanaugh Admitting Unavailab Amy Cisse Consulting Unavailable Lorena Conway Consulting Unavailable Angelica Cheney Consulting Unavailable Denslow, Tawanna Consulting Unavailable Ree Clemente Consulting Unavailable Mary [...] Unavailab riya NON STAFF Primary Care Unavailable Butch Oliva DO Primary Care Provider Allergies Allergy Classification Reported Allergen(s) Allergy Type Date of Onset Reaction(s) Facility Nitroimidazoles (antibiotic) (1 source) metroNIDAZOLE Drug Allergy 8 Hives [facility] Ondansetron (1 source) Ondansetron Drug Allergy 1 Itching [facility] (1 source) metroNIDAZOLE Drug Allergy 3 [facility] Repository (9 sources) metroNIDAZOLE; Translations: [METRONIDAZOLE] Drug Allergy 8 Nausea, Hives [facility] (10 sources) Ondansetron; Translations: [ONDANSETRON HCL] Drug Allergy 1 Itching [facility] (4 sources) metroNIDAZOLE; Translations: [METRONIDAZOLE HCL] Drug Allergy 8 Hives [facility] (1 source) metroNIDAZOLE Drug Allergy 4 [facility] Repository Medications Current Medications Medication Drug Class(es) Dates Sig (Normalized) Sig (Original) 8 hr acetaminophen 650 mg extended release oral tablet (1 source) take 1 tablet by mouth every eight hours as needed acetaminophen (TYLENOL ARTHRITIS) 650 mg 8 hr tablet Take 1 tablet (650 mg total) by mouth every 8 (eight) hours as needed. Active acetaminophen 300 mg / codeine phosphate 30 mg oral tablet (4 sources) Opioid Agonist Start: 07-14-2010 take 1 tablet by mouth once as needed for pain acetaminophen-codei ne 300-30 mg ORAL per tablet Take 1 tablet by mouth as needed (for pain on dressing change.). 30 tablet 0 07/14/2010 Active acetaminophen 325 mg / oxyCODONE hydrochloride 5 mg oral tablet (3 sources) Opioid Agonist Start: 06-22-2023 take 1 tablet by mouth four times daily Oxycodone-Acetamino phen Active 1 TAB PO Four times daily June 22, 2023 12:00am take 1 tablet by guillermina th every four hours as needed for pain oxyCODONE-acetaminophen (PERCOCET) 5-325 mg per tablet Take 1 tablet by mouth every 4 (four) hours as needed for pain. Max Daily Amount: 6 tablets Active ARIPiprazole 20 mg oral tablet (9 sources) Atypical Antipsychotic Start: 05-29-2023 take 20 mg by mouth once daily Aripiprazole Active 20 MG PO Daily June 22, 2023 12:00am Start: 02-06-2023 take 1 tablet by guillermina th in the morning ARIPiprazole (ABILIFY) 5 mg tablet Take 1 tablet (5 mg total) by mouth in the morning. 30 tablet 02/06/2023 Active clonazePAM 1 mg oral tablet (3 sources) Benzodiazepine Start: 06-22-2023 take 1 mg [...] DULoxetine 60 mg delayed release oral capsule (9 sources) Serotonin and Norepinephrine Reuptake Inhibitor Start: 05-31-2023 take 60 mg by mouth twice daily Duloxetine Active 60 MG PO Twice daily June 22, 2023 12:00am Start: 02-06-2023 take 1 capsule by mo ut in the morning DULoxetine 40 mg capsule,delayed release(DR/EC) Take 40 mg by mouth in the morning. 30 capsule 02/06/2023 Active ergocalciferol 1.25 mg oral capsule (3 sources) Provitamin D2 Compound Start: 06-25-2023 take 1250 ug by mouth every week Ergocalciferol (Vitamin D2) Active 1250 MCG PO Q7D@0900 30 30 June 25, 2023 12:00am take 1 capsule by mouth every we ek ergocalciferol (DRISDOL) 1,250 mcg (50,000 unit) capsule Take 1 capsule (50,000 Units total) by mouth once a week. Active famotidine 20 mg oral tablet (3 sources) Histamine-2 Receptor Antagonist Start: 06-22-2023 take 20 mg by mouth once daily Famotidine Active 20 MG PO Daily June 22, 2023 12:00am furosemide 20 mg oral tablet (3 sources) Loop Diuretic Start: 06-22-2023 take 20 mg by mouth once daily Furosemide Active 20 MG PO Daily June 22, 2023 12:00am gabapentin 600 mg oral tablet (3 sources) Anti-epileptic Agent Start: 06-22-2023 take 600 mg by mouth three times daily Gabapentin Active 600 MG PO Three times daily June 22, 2023 12:00am ibuprofen 800 mg oral tablet (8 sources) Nonsteroidal Anti-inflammatory Drug Start: 06-22-2023 take 800 mg by mouth three times daily Ibuprofen Active 800 MG PO Three times daily June 22, 2023 12:00am Start: 02-28-2023 take 1 tablet by guillermina every eight hours as needed ibuprofen (MOTRIN) 800 mg tablet Take 1 tablet (800 mg total) by mouth every 8 (eight) hours as needed. 02/28/2023 Active linezolid 600 mg oral tablet (4 sources) Oxazolidinone Antibacterial Start: 07-11-2010 take 1 tablet by mouth every twelve hours linezolid 600 mg ORAL tablet Take 1 tablet by mouth every 12 hours. 14 tablet 0 07/11/2010 Active loperamide hydrochloride 2 mg oral tablet (1 source) Opioid Agonist take 1 tablet by mouth every six hours as needed for diarrhea loperamide (IMODIUM A-D) 2 mg tablet Take 1 tablet (2 mg total) by mouth every 6 (six) hours as needed for diarrhea. Active melatonin 3 mg oral tablet (6 sources) Start: 02-05-2023 take 2 tablets by mouth once daily as needed for sleep melatonin (CIRCADIN) tablet Take 2 tablets (6 mg total) by mouth nightly as needed for sleep. 40 tablet 02/05/2023 Active methocarbamol 500 mg oral tablet (3 sources) Muscle Relaxant Start: 06-22-2023 take 1500 mg by mouth three times daily Methocarbamol Active 1500 MG PO Three times daily June 22, 2023 12:00am Start: 03-03-2023 take 3 tablets by mo [facility] three times daily methocarbamoL (ROBAXIN) 500 mg tablet Take 3 tablets (1,500 mg total) by mouth 3 (three) times a day. 03/03/2023 Active prazosin 5 mg oral capsule (3 sources) alpha-Adrenergic Aurelia Start: 06-22-2023 take 5 mg by mouth at bedtime Prazosin Active 5 MG PO Bedtime June 22, 2023 12:00am traZODone hydrochloride 50 mg oral tablet (4 sources) Serotonin Reuptake Inhibitor Start: 06-25-2023 take 1 tablet by mouth once daily as needed for sleep traZODone (DESYREL) 50 mg tablet Take 1 tablet (50 mg total) by mouth nightly as needed for depression or sleep. 06/25/2023 Active Completed/Discontinued Medications Medication Drug Class(es) Dates Sig (Normalized) Sig (Original) 10 ml lidocaine hydrochloride 10 mg/ml injection (9 sources) Antiarrhythmic, Amide Local Anesthetic Start: 09-30-2023 End: 09-30-2023 lidocaine (PF) 10 mg/mL (1 %) 4 mL injection (XYLOCAINE) Start: 09-03-2023 End: 09-03-2023 lidocaine (PF) 10 mg/mL (1 % ) 8 mL injection (XYLOCAINE) Start: 2023 apply 1 dose transde rmal route once daily lidocaine (SALONPAS) 4 % Place 1 patch on the skin daily. 2023 Active Start: 06-22-2023 apply 1 dose topically once [...] Problem Date Documented Date Episodic/Chronic Anxiety disorders (12 sources) Anxiety; Translations: [Anxiety disorder, unspecified] Onset: 04-30-2023 04-30-2023 Chronic E Codes: Fall (1 source) Unspecified fall, initial encounter; Translations: [UNSPECIFIED FALL INITIAL ENCOUNTER] Onset: 05-25-2022 Episodic Menstrual disorders (6 sources) Irregular menstruation, unspecified; Translations: [Menometrorrhagia] Onset: 05-28-2022 Chronic Mood disorders (13 sources) Bipolar affective disorder, current episode mixed; Translations: [Bipolar disorder, current episode mixed, unspecified] Onset: 04-30-2023 04-30-2023 Chronic Mycoses (1 source) Candidiasis of skin; Translations: [Candidiasis of skin and nail] 12-24-2023 Episodic Osteoarthritis (20 sources) Unilateral primary osteoarthritis, left hip; Translations: [Bilateral primary osteoarthritis of hip] Onset: 05-27-2022 Chronic Other connective tissue disease (1 source) Other muscle spasm; Translations: [OTHER MUSCLE SPASM] Onset: 06-24-2022 Episodic Other connective tissue disease (8 sources) Muscle weakness; Translations: [Muscle weakness (generalized)] [...] Onset: 05-25-2022 Episodic Other nervous system disorders (8 sources) Finding related to ability to move; [...] nutritional; endocrine; and metabolic disorders (4 sources) Morbid obesity; Translations: [Morbid (severe) obesity due to excess calories] Onset: 07-07-2010 06-03-2023 Chronic Residual codes; unclassified (1 source) Family history of malignant neoplasm of breast; Translations: [FAMILY HX MALIG NEOPLASM OF BREAST] Onset: 05-29-2022 Episodic Residual codes; unclassified (1 source) For resuscitation; Translations: [Other specified health status] 05-24-2023 Episodic Residual codes; unclassified (1 source) Edema of foot; Translations: [Localized edema] 06-03-2023 Episodic Schizophrenia and other psychotic disorders (11 sources) Schizophrenic disorders ; Translations: [Schizophrenia, unspecified] Onset: 04-30-2023 04-30-2023 Chronic Spondylosis; intervertebral disc disorders; other back problems (17 sources) Spinal stenosis of lumbar region; Translations: [Spinal stenosis, lumbar region without neurogenic claudication] Onset: 05-17-2007 Resolved: 07-07-2010 04-30-2023 Episodic Unclassified (1 source) EMS Onset: 06-22-2023 Past or Other Problems Problem Classification Problem Date Documented Date Episodic/Chronic Disorders of teeth and jaw (4 sources) Jaw pain; Translations: [Jaw pain] Onset: 07-07-2010 Episodic Ectopic (6 sources) Ectopic ; Translations: [Unspecified ectopic without intrauterine ] Onset: 05-11-2012 Resolved: 10-19-2023 04-30-2023 Episodic Immunizations and screening for infectious disease (9 sources) Encounter for screening for human papillomavirus (HPV); Translations: [Contact with and (suspected) exposure to infections with a predominantly sexual mode of transmission] Onset: 05-26-2022 04-30-2023 Episodic Other connective tissue disease (4 sources) Pain in limb; Translations: [Pain in unspecified limb] Onset: 05-17-2007 Resolved: 07-07-2010 07-07-2010 Episodic Other screening for suspected conditions (not mental disorders or infectious disease) (7 sources) Encounter for screening for cardiovascular disorders; Translations: [Encounter for screening mammogram for malignant neoplasm of breast] Onset: 05-25-2022 Episodic Pneumonia (except that caused by tuberculosis or sexually transmitted disease) (6 sources) Pneumonia; Translations: [Pneumonia, unspecified organism] Onset: 01-24-2023 Resolved: 12-24-2023 01-24-2023 Episodic Sexually transmitted infections (not HIV or hepatitis) (7 sources) Acquired syphilis ; Translations: [Syphilis, unspecified] Onset: 04-30-2023 04-30-2023 Episodic Skin and subcutaneous tissue infections (11 sources) Cellulitis and abscess of trunk; Translations: [Cellulitis of trunk, unspecified] Onset: 07-07-2010 Resolved: 10-19-2023 04-30-2023 Episodic Spondylosis; intervertebral disc disorders; other back problems (8 sources) Degeneration of lumbosacral intervertebral disc; Translations: [Other intervertebral disc degeneration, lumbosacral region] Onset: 05-17-2007 Resolved: 07-07-2010 07-07-2010 Chronic Results Test Name Value Interpretation Reference Range Facility Pathology Request for Lab Co rpon 10-22-2023 Pathology Request for Lab Larry Normal [facility] Comment on above: Order Comment: PATHO LOGY [facility] SPECIMEN Result Comment: See report. Scanned copy available in EMR. PERFORMED BY: [place] [address] PATHOLOGIST AIRFIELD MANAGER JANNETTE ROTHMAN M.D. Performed By: #### P ATH TO [facility] #### [address] Large Joint Arthro/Inj: bila teral hip jointson 09-30-2023 Edward Arita DO 09/30/2023 11:44 AM Large Joint Arthro/Inj: bilateral hip joints Informed Consent Consent Obtained: Verbal [place] Protocol A moment to CARE was completed. [...] Plan of Care Visit completed when applicable [facility] US HIP-INJECTION LT (POC) OR I USE ONLYon 09-30-2023 [facility] US HIP-INJECTION RT (POC) OR I USE ONLYon 09-30-2023 [facility] CNOVon 09-03-2023 CNOV Office Visit (LOORRM ) JENNIFER MENDES ([id number]) 1980 F T Date Time Provider Department 09/03/23 8:30 AM [...] She reports that she moved here from [place] and moved in with her sisters in the last few years but moved into a prison in the last year when she could not get around or do self-care. She is now living in a prison facility. Has significant pain in her back [...] gabapentin and methadone all given at the prison without great pain control. She has done physical therapy as well. She has schizoaffective disorder but otherwise is fairly healthy. She notes that her weight was 268 when she entered the prison but is now 320. Pain level is [...] 4/5 Other (more content not included)... Normal [facility] Large Joint Arthro/Inj: R gr eater trochanteric bursaon 09-03-2023 Tang Sloan PA-C 09/07/2023 4:29 PM Large Joint Arthro/Inj: R greater trochanteric bursa Informed Consent Consent Obtained: Verbal [place] Protocol A moment to CARE was completed. [...] Third democrat verified by Monae Vaca MA. [facility] XR HIP JORGE LUIS 5V PEL+ [...] No fracture. IMPRESSION: SEVERE BILATERAL HIP OSTEOARTHRITIS. Shipping Support: FAY Transcribe Date/Time: Sep 03 2023 11:04A Dictated by : EVA ZARATE MD This examination was interpreted and the report reviewed and electronically signed by: EVA ZARATE MD on Sep 03 2023 11:05AM EST [id number] Normal [facility] XR HIP BILATERAL 5V PEL/AP/L AT EACH HIPon 09-03-2023 IMPRESSION: SEVERE BILATERAL HIP OSTEOARTHRITIS. Shipping Support: FAY Transcribe Date/Time: Sep 03 2023 11:04A [...] pubis. No fracture. DIVISION OF RADIOLOGY Provider, [facility] Damian malik [place] - 09/03/2023 * * *Final Report* * [...] fracture. IMPRESSION IMPRESSION: SEVERE BILATERAL HIP OSTEOARTHRITIS. Shipping Support: FAY Transcribe Date/Time: Sep 03 2023 11:04A Dictated by : EVA ZARATE MD This examination was interpreted and the report reviewed and electronically signed by: EVA ZARATE MD on Sep 03 2023 11:05AM EST [facility] Radiology Study observation (narrative) Jamar owen [facility] XR HIP BILATERAL 5V PEL/AP/L AT EACH HIPOrdered By: Ccf Provider on 09-03-2023 [facility] Cholesterol [Mass/volume] in Serum or PlasmaOrdered By: Joseph Tello on 06-23-2023 Cholesterol [Mass/Vol] 172 mg/dL Normal 140-200 [facility] Comment on above: Chol less than 200 m g/dl low riskChol 201-239 mg/dl borderline riskChol 240 mg/dl and greater high risk Order Comment: ANGELIQUE ROBINS Y Result Comment: Chol less than 200 mg/dl low risk Chol 201-239 mg/dl borderline risk Chol 240 mg/dl and greater high risk Performed By: #### T SH3 wRFLX, LIPID, [id number] #### [facility] [address] Cholesterol in LDL Calc [Mas s/Vol]Ordered By: Joseph Tello on 06-23-2023 Cholesterol in LDL [Mass/Vol] 100 mg/dL 0-100 [facility] Comment on above: LDL ATP III CLASSIFI CATIONLDL less than 100 mg/dL OptimalLDL 100-129 mg/dL Near or above optimalLDL 130-159 mg/dL Borderline highLDL 160-189 mg/dL HighLDL greater than 189 mg/dL Very high Cholesterol in VLDL Calc [Ma ss/Vol]Ordered By: Joseph Tello on 06-23-2023 Cholesterol in VLDL [Mass/Vol] 44 mg/dL [facility] ECG 12 lead ECGon 06-23-2023 ECG 12 lead ECG [facility] [address] [place] [address] [place] [address] Electrocardiograph Report Signed Patient: Jennifer Mendes MR#: [id number] : 1980 Acct:[id number] Age/Sex: 42 / F ADM Date: 06/22/23 Loc: Room: 0P8586-2 Type: ADM IN Attending Dr: Joseph Tello [...] previous ECGs available Confirmed by Sekou Maciel ([id number]) on 06/23/2023 11:23:15 AM Referred By: Electronically Signed By:Sekou Maciel Transcribed By: MUS Signed By Sekou Maciel MD 06/23/23 1123 Normal [facility] Lipid Panelon 06-23-2023 LDL Cholesterol,Calculated 100 mg/dL Normal 0-100 [facility] Comment on above: Order Comment: ANGELIQUE Ornelas Result Comment: LDL ATP III CLASSIFICATION LDL less than 100 mg/dL Optimal LDL 100-129 mg/dL Near or above optimal LDL 130-159 mg/dL Borderline high LDL 160-189 mg/dL High LDL greater than 189 mg/dL Very high Performed By: #### T SH3 wRFLX, LIPID, [id number] #### [facility] [address] Triglyceride w/Reflex 220 mg/dL High 0-149 [facility] Comment on above: Order Comment: ANGELIQUE Ornelas Result Comment: TRIG ATP III CLASSIFICATION TRIG less than 150 mg/dL Normal TRIG 150-199 mg/dL Borderline high TRIG 200-500 mg/dL High TRIG greater than 500 mg/dL Very high Standard traceable to the Center for Disease Conrtrol and Prevention (CDC) test method. Performed By: #### T SH3 wRFLX, LIPID, [id number] #### [facility] [address] VLDL CHOLESTEROL 44 mg/dL Normal [facility] Comment on above: Order Comment: ANGELIQUE Ornelas Performed By: #### T SH3 wRFLX, LIPID, [id number] #### [facility] [address] Serum or plasma high density lipoprotein (HDL) cholesterol measurementOrdered By: Joseph Tello on 06-23-2023 Cholesterol in HDL [Mass/Vol] 28 mg/dL Normal 23-92 [facility] Comment on above: HDL CHOL ATP-III CLA SSIFICATION Cardiovascular RiskHDL > or equal to 60 mg/dL LOWHDL < 40 mg/dL HIGH Order Comment: FASTI NG Y Result Comment: HDL CHOL ATP-III CLASSIFICATION Cardiovascular Risk HDL > or equal to 60 mg/dL LOW HDL < 40 mg/dL HIGH Performed By: #### T SH3 wRFLX, LIPID, [id number] #### [facility] [address] [place] [address] Serum or plasma total choles terol/high density lipoprotein (HDL) cholesterol mass ratOrdered By: Joseph Tello on 06-23-2023 Cholesterol.total/Cholest mitch in HDL [Mass ratio] 6.1 {ratio} Normal <5.0 [facility] Comment on above: Order Comment: FASTI NG Y Performed By: #### T SH3 wRFLX, LIPID, [id number] #### [facility] [address] [place] [address] Thyroid Stim Hormone w/Rflxo n 06-23-2023 Thyroid Stim Hormone w/Rflx 2.27 u[iU]/mL Normal 0.45-5.33 [facility] Comment on above: Order Comment: FASTI NG Y Performed By: #### T SH3 wRFLX, LIPID, [id number] #### [facility] [address] [place] [address] Thyrotropin [Units/volume] i n Serum or PlasmaOrdered By: Joseph Tello on 06-23-2023 TSH Qn 2.27 m[IU]/L 0.45-5.33 [facility] Triglyceride [Mass/volume] i n Serum or PlasmaOrdered By: Joseph Tello on 06-23-2023 Triglyceride [Mass/Vol] 220 mg/dL 0-149 [facility] Comment on above: TRIG ATP III CLASSIF ICATIONTRIG less than 150 mg/dL NormalTRIG 150-199 mg/dL Borderline highTRIG 200-500 mg/dL High TRIG greater than 500 mg/dL Very highStandard traceable to the Center for Disease Conrtrol and Prevention (CDC) test method. Vitamin D 25 Hydroxy Totalon 06-23-2023 Vitamin D 25 Hydroxy Total 13.4 ng/mL Low 30-100 [facility] Comment on above: Order Comment: ANGELIQUE Ornelas Result Comment: DELVIS MIN D STATUS 25(OH)VITAMIN D RANGE (ng/mL) Deficient <20 Insufficient 20 to <30 Sufficient 30 to 100 Reference: Terrence ZIEGLER,Ricky SALGUERO, Shan KEARNEY, et al. Evaluation,treatment, and prevention of vitamin D deficiency; an Endocrine Society clinical practice guideline. JCEM. 2010; 96(7):1911-. PERFORMED BY: [place] [address] PATHOLOGIST [employer]FIELD MANAGER JANNETTE ROTHMAN M.D. Performed By: #### T SH3 wRFLX, LIPID, [id number] #### [address] Vitamin D+Metabolites [Mass/ volume] in Serum or PlasmaOrdered By: Joseph Tello on 06-23-2023 Vitamin D+Metabolites [Mass/Vol] 13.4 ng/mL 30-100 [facility] Comment on above: VITAMIN D STATUS 25( OH)VITAMIN D RANGE (ng/mL) Deficient <20 Insufficient 20 to <30Sufficient 30 to 100Reference: Ricky Phipps, Shan KEARNEY, et al. Evaluation,treatment, and prevention of vitamin D deficiency; an Endocrine Society clinical practice guideline. JCEM. 2010; 96(7):1911-30. ACETAMINOPHENon 06-22-2023 Acetaminophen [Mass/Vol] 5.1 ug/mL Low 10.0-30.0 [facility] Comment on above: Result Comment: Refe rence ranges are for therapeutic limits. Performed By: #### C MP, 4024-6, 5643-2, 3298-7, CBCA #### [facility] ([id number]) [address] [place] [address] CBC AND AUTO DIFFon 06-22-19 24 ABSOLUTE BASOPHIL 0.2 X10E9/L Normal 0.0-0.2 [facility] Comment on above: Performed By: #### C CHANTELL, 4024-6, 5643-2, 3297-09, CBCA #### [facility] ([id number]) [address] [place] [address] ABSOLUTE NEUTROPHIL 8.5 X10E9/L High 1.5-6.6 [facility] Comment on above: Performed By: #### C CHANTELL, [facility]4-6, 5643-2, 3297-09, CBCA #### [facility] ([id number]) [address] [place] [address] Basophils/100 WBC (Bld) 1.5 % Normal [facility] Comment on above: Performed By: #### C CHANTELL, [facility]4-6, 5643-2, 3297-09, CBCA #### [facility] ([id number]) [address] [place] [address] Eosinophils (Bld) [#/Vol] 0.9 10*3/uL High 0.0-0.4 [facility] Comment on above: Performed By: #### C CHANTELL, [facility]4-6, 5643-2, 3297-09, CBCA #### [facility] ([id number]) [address] [place] [address] Eosinophils/100 WBC (Bld) 6.5 % Normal [facility] Comment on above: Performed By: #### C CHANTELL, 4024-6, 5643-2, 32910-12, CBCA #### [facility] ([id number]) [address] [place] [address] Erythrocyte distribution width (RBC) [Ratio] 18.1 % High 11.5-15.0 [facility] Comment on above: Performed By: #### C CHANTELL, 4024-6, 5643-2, 3297-7, CBCA #### [facility] ([id number]) [address] [place] [address] Hematocrit (Bld) [Volume fraction] 35.5 % Normal 35-47 [facility] Comment on above: Performed By: #### C CHANTELL, [facility]6, 5643-2, 7, CBCA #### [facility] ([id number]) [address] [place] [address] Hemoglobin (Bld) [Mass/Vol] 11.2 g/dL Low 11.7-15.5 [facility] Comment on above: Performed By: #### C CHANTELL, [facility]6, 56-2, 3297-09, CBCA #### [facility] ([id number]) [address] [place] [address] Lymphocytes (Bld) [#/Vol] 3.1 10*3/uL Normal 1.0-3.5 [facility] Comment on above: Performed By: #### C CHANTELL, [facility]-6, 5643-2, 32910-12, CBCA #### [facility] ([id number]) [address] [place] [address] Lymphocytes/100 WBC (Bld) 22.2 % Normal [facility] [facility] Comment on above: Performed By: #### C CHANTELL, 4024-6, 5643-2, 329-7, CBCA #### [facility] ([id number]) [address] [place] [address] 62378 MCH (RBC) [Entitic mass] 23.1 pg Low 27-34 [facility] Comment on above: Performed By: #### C CHANTELL, 402-6, 5643-2, 3297-09, CBCA #### [facility] ([id number]) [address] [place] [address] 07008 MCHC (RBC) [Mass/Vol] 31.4 g/dL Low 32-36 [facility] Comment on above: Performed By: #### C CHANTELL, 4024-6, 5643-2, 3297-09, CBCA #### [facility] ([id number]) [address] [place] [address] 96018 MCV (RBC) [Entitic vol] 74 fL Low 80-100 [facility] Comment on above: Performed By: #### C CHANTELL, [facility]4-6, 5642-2, 3297-09, CBCA #### [facility] ([id number]) [address] [place] [address] 40466 Monocytes (Bld) [#/Vol] 1.1 10*3/uL High 0-0.9 [facility] Comment on above: Performed By: #### C CHANTELL, 4024-6, 5642-, 3297-09, CBCA #### [facility] ([id number]) [address] [place] [address] 43680 Monocytes/100 WBC (Bld) 8.0 % Normal [facility] Comment on above: Performed By: #### C CHANTELL, [facility]4-6, 5642-2, 3297-09, CBCA #### [facility] ([id number]) [address] [place] [address] 20650 Neutrophils/100 WBC (Bld) 61.8 % Normal [facility] Comment on above: Performed By: #### C CHANTELL, 4024-6, 5643-2, 3297-09, CBCA #### [facility] ([id number]) [address] [place] [address] 82368 Platelet mean volume (Bld) [Entitic vol] 7.9 fL Normal 7-12 [facility] Comment on above: Performed By: #### C CHANTELL, 4024-6, 5643-2, 329-7, CBCA #### [facility] ([id number]) [address] [place] [address] 98027 Platelets (Bld) [#/Vol] 530 10*3/uL High 150-450 [facility] Comment on above: Performed By: #### C CHANTELL, 4024-6, 5643-2, 329-7, CBCA #### [facility] ([id number]) [address] [place] [address] 12626 RBC COUNT 4.82 X10E12/L Normal 3.80-5.20 [facility] Comment on above: Performed By: #### C CHANTELL, 4024-6, 5643-2, 32910-12, CBCA #### [facility] ([id number]) [address] [place] [address] 98149 WBC (Bld) [#/Vol] 13.8 10*3/uL High 4.0-11.0 [facility] Comment on above: Performed By: #### C CHANTELL, 4024-6, 5643-2, 32910-12, CBCA #### [facility] ([id number]) [address] [place] [address] 77318 COMPREHENSIVE METABOLIC PANE Jace 06-22-2023 Albumin [Mass/Vol] 3.6 g/dL Normal 3.2-5.3 [facility] Comment on above: Performed By: #### C CHANTELL, 4024-6, 5643-2, 329-, CBCA #### [facility] ([id number]) [address] [place] [address] 42099 ALP [Catalytic activity/Vol] 51 U/L Normal 39-130 [facility] Comment on above: Performed By: #### C CHANTELL, 4024-6, 5643-2, 32910-12, CBCA #### [facility] ([id number]) [address] [place] [address] 22966 ALT [Catalytic activity/Vol] 18 U/L Normal 0-31 [facility] Comment on above: Performed By: #### C CHANTELL, 4024-6, 5643-2, 329-7, CBCA #### [facility] ([id number]) [address] [place] [address] 80575 Anion gap [Moles/Vol] 6 mmol/L Normal 5-15 [facility] Comment on above: Performed By: #### C CHANTELL, 4024-6, 5643-2, 3297-09, CBCA #### [facility] ([id number]) [address] [place] [address] 41574 AST [Catalytic activity/Vol] 14 U/L Normal 0-41 [facility] Comment on above: Performed By: #### C CHANTELL, 4024-6, 5643-2, 32910-12, CBCA #### [facility] ([id number]) [address] [place] [address] 46781 Bilirubin [Mass/Vol] 0.6 mg/dL Normal 0.3-1.2 [facility] Comment on above: Performed By: #### C CHANTELL, 4024-6, 5643-2, 32910-12, CBCA #### [facility] ([id number]) [address] [place] [address] 32407 Calcium [Mass/Vol] 9.0 mg/dL Normal 8.5-10.5 [facility] Comment on above: Performed By: #### C CHANTELL, 4024-6, 5643-2, 32910-12, CBCA #### [facility] ([id number]) [address] [place] [address] 36139 Chloride [Moles/Vol] 104 mmol/L Normal 98-109 [facility] Comment on above: Performed By: #### C CHANTELL, 4024-6, 5643-2, 329-7, CBCA #### [facility] ([id number]) [address] [place] [address] 79541 CO2 [Moles/Vol] 26 mmol/L Normal 22-32 [facility] Comment on above: Performed By: #### C CHANTELL, 4024-6, 5643-2, 329-, CBCA #### [facility] ([id number]) [address] [place] [address] 28320 Creatinine [Mass/Vol] 0.84 mg/dL Normal 0.40-1.00 [facility] Comment on above: Result Comment: METH OD TRACEABLE TO IDMS STANDARD Performed By: #### C CHANTELL, 4024-6, 5643-2, 32910-12, CBCA #### [facility] ([id number]) [address] [place] [address] 51149 GFR/1.73 sq M.predicted among non-blacks MDRD (S/P/Bld) [Vol rate/Area] 88 mL/min/{1.73_m2} Normal >59 [facility] Comment on above: Result Comment: Reported eGFR is based on the CKD-EPI 2020 equation that does not use a race coefficient. Performed By: #### C CHANTELL, 4024-6, 5643-2, 329-, CBCA #### [facility] ([id number]) [address] [place] [address] 76435 Glucose [Mass/Vol] 96 mg/dL Normal 65-99 [facility] Comment on above: Performed By: #### C CHANTELL, 4024-6, 5643-2, 329-7, CBCA #### [facility] ([id number]) [address] [place] [address] 69649 Potassium [Moles/Vol] 3.9 mmol/L Normal 3.5-5.0 [facility] Comment on above: Performed By: #### C CHANTELL, 4024-6, 5643-2, 3298-7, CBCA #### [facility] ([id number]) [address] [place] [address] 54635 Protein [Mass/Vol] 8.0 g/dL Normal 6.0-8.0 [facility] Comment on above: Performed By: #### C CHANTELL, 4024-6, 5643-2, 3298-7, CBCA #### [facility] ([id number]) [address] [place] [address] 24546 Sodium [Moles/Vol] 136 mmol/L Normal 134-146 [facility] Comment on above: Performed By: #### C CHANTELL, 4024-6, 5643-2, 3298-7, CBCA #### [facility] ([id number]) [address] [place] [address] 65333 Urea nitrogen [Mass/Vol] 21 mg/dL Normal 5-23 [facility] Comment on above: Performed By: #### C CHANTELL, 4024-6, 5643-2, 3298-7, CBCA #### [facility] ([id number]) [address] [place] [address] 97080 DRUG SCREEN, URINEon 024 AMPHETAMINE/METHAMP Negative Normal NEG [facility] Comment on above: Result Comment: AMPH /METH screening cut off = 1000 ng/mL Performed By: #### D CRUZ #### [facility] ([id number]) [address] [place] [address] 51314 BARBITURATES Negative Normal NEG [facility] Comment on above: Result Comment: Ella iturates screening cut off value = 200 ng/mL Performed By: #### D CRUZ #### [facility] ([id number]) [address] [place] [address] 55546 BENZODIAZEPINES Negative Normal NEG [facility] Comment on above: Result Comment: Feng odiazepines screening cut off value = 200 ng/mL Performed By: #### D CRUZ #### [facility] ([id number]) [address] [place] [address] 59611 CANNABINOIDS Positive Abnormal NEG [facility] Comment on above: Result Comment: Conf irmation available upon request. Cannabinoids/THC screening cut off value = 50 ng/mL Performed By: #### D CRUZ #### [facility] ([id number]) [address] [place] [address] 73604 COCAINE METABOLITE Negative Normal NEG [facility] Comment on above: Result Comment: Coca ine screening cut off value = 300 ng/mL Performed By: #### D CRUZ #### [facility] ([id number]) [address] [place] [address] 28869 ECSTASY Negative Normal NEG [facility] Comment on above: Result Comment: Ecst asy screening cut off value = 500 ng/mL This report is intended for use in clinical monitoring or management of patients. Performed By: #### D CRUZ #### [facility] ([id number]) [address] [place] [address] 58037 METHADONE Negative Normal NEG [facility] Comment on above: Result Comment: Meth adone screening cut off value = 300 ng/mL. Performed By: #### D CRUZ #### [facility] ([id number]) [address] [place] [address] [place] [address] OPIATES Negative Normal NEG [facility] Comment on above: Result Comment: Opia alesha screening cut off value = 300 ng/mL NOTE: This test is used for the detection of codeine, hydrocodone (>1000 ng/mL), morphine and hydromorphone (>900 ng/mL) in urine. Performed By: #### D CRUZ #### [facility] ([id number]) [address] [place] [address] 35727 OXYCODONE Positive Abnormal NEG [facility] Comment on above: Result Comment: Conf irmation available upon request. Oxycodone screening cut off value = 300 ng/mL NOTE: This test is used for the detection of oxycodone and oxymorphone in urine. Performed By: #### D CRUZ #### [facility] ([id number]) [address] [place] [address] 33134 PHENCYCLIDINE Negative Normal NEG [facility] Comment on above: Result Comment: Phen cyclidine screening cut off value = 25 ng/mL Performed By: #### D CRUZ #### [facility] ([id number]) [address] [place] [address] 67212 ETHANOLon 06-22-2023 Ethanol [Mass/Vol] mg/dL Normal 0.00-0.08 [facility] Comment on above: Result Comment: This report is intended for use in clinical monitoring or management of patients. Performed By: #### C CHANTELL, 4024-6, 5643-2, 3298-7, CBCA #### [facility] ([id number]) [address] [place] [address] 27171 HCG ( test) Ql (U)o n 06-22-2023 Beta HCG ( test) Ql (U) Negative Normal NEG [facility] Comment on above: Performed By: #### 2 106-3 #### [facility] ([id number]) [address] [place] [address] 88482 Salicylates [Mass/Vol]on SALICYLATE <4.0 Normal 2.0-25.0 [facility] Comment on above: Result Comment: Refe rence ranges are for therapeutic limits. Performed By: #### C CHANTELL, 4024-6, 5643-2, 3298-7, CBCA #### [facility] ([id number]) [address] [place] [address] 80444 URN MACROSCOPIC NURon 2023 BILIRUBIN [place] Negative Normal NEG [facility] Comment on above: Performed By: #### N UM #### [facility] ([id number]) [address] [place] [address] 78389 BLOOD/HGB [place] Trace Abnormal NEG [facility] Comment on above: Performed By: #### N UM #### [facility] ([id number]) [address] [place] [address] [place] [address] GLUCOSE [place] Negative Normal NEG [facility] Comment on above: Performed By: #### N UM #### [facility] ([id number]) [address] [place] [address] 80415 KETONES [place] Negative Normal NEG [facility] Comment on above: Performed By: #### N UM #### [facility] ([id number]) [address] [place] [address] [place] [address] LEUKOCYTE ESTERASE [place] MODERATE Abnormal NEG [facility] Comment on above: Performed By: #### N UM #### [facility] ([id number]) [address] [place] [address] [place] [address] NITRITE [place] Negative Normal NEG [facility] Comment on above: Performed By: #### N UM #### [facility] ([id number]) [address] [place] [address] 38108 PH [place] 5.0 Normal 5.0-8.5 [facility] Comment on above: Performed By: #### N UM #### [facility] ([id number]) [address] [place] [address] 10770 PROTEIN [place] Negative Normal NEG [facility] Comment on above: Performed By: #### N UM #### [facility] ([id number]) [address] [place] [address] [place] [address] SPECIFIC GRAVITY [place] 1.015 Normal 1.003-1.035 [facility] Comment on above: Performed By: #### N UM #### [facility] ([id number]) [address] [place] [address], [place] [address] UROBILINOGEN [place] 0.2 eu/dL Normal <1.1 [facility] Comment on above: Performed By: #### N UM #### [facility] ([id number]) [address] [place] [address], [place] [address] PAP ACOG PANEL 2: 30 to 64on 06-03-2022 . . Normal [facility] Comment on above: Result Comment: Perf ormed at: WB Performed By: #### 4 [id number] #### [facility] [address] [place] [address] Dr. Dustin Hoover Age Gdln ACOG Testing -64 Normal [facility] Comment on above: Performed By: #### 4 [id number] #### [facility] [address] [place] [address] Dr. Dustin Hoover DIAGNOSIS: Comment Abnormal [facility] Comment on above: Result Comment: EPIT HELIAL CELL ABNORMALITY. ATYPICAL SQUAMOUS CELLS OF UNDETERMINED SIGNIFICANCE (ASC-US). TRICHOMONAS VAGINALIS IS PRESENT. Performed at: WB Performed By: #### 4 [id number] #### [facility] [address] [place] [address] Dr. Dustin Hoover Electronically signed by: Comment Normal [facility] Comment on above: Result Comment: Andreia López MD, Pathologist Performed at: WB Performed By: #### 4 [id number] #### [facility] [address] [address] [address] Dustin Hoover HPV Aptima Negative Normal Negative [facility] Comment on above: Result Comment: This nucleic acid amplification test detects fourteen high-risk HPV types (16,18,31,33,35,39,45,51,52,56,58,59,66,68) without differentiation. Performed at: =G Performed By: #### 4 [id number] #### [facility] [address] [place] [address] Dr. Dustin Hoover HPV Genotype Reflex Comment Normal [facility] Comment on above: Result Comment: Crit eria not met, HPV Genotype not performed. Performed at: WB Performed By: #### 4 [id number] #### [facility] [address] [place] [address] Dr. Dustin Hoover Methodology: Comment Normal [facility] Comment on above: Result Comment: This liquid based ThinPrep(R) pap test was screened with the use of an image guided system. Performed at: WB Performed By: #### 4 [id number] #### [facility] [address] [place] [address] Dr. Dustin Hoover Note: Comment Normal [facility] Comment on above: Result Comment: The Pap smear is a screening test designed to aid in the detection of premalignant and malignant conditions of the uterine cervix. It is not a diagnostic procedure and should not be used as the sole means of detecting cervical cancer. Both false-positive and false-negative reports do occur. . Performed at: WB Performed By: #### 4 [id number] #### [facility] [address] [place] [address] Dr. Dustin Hoover Pathologist Provided ICD10 Comment Normal [facility] Comment on above: Result Comment: R87. 610, R87.5 Performed at: WB Performed By: #### 4 [id number] #### [facility] [address] [place] [address] Dr. Dustin Hoover Performed by: Comment Normal [facility] Comment on above: Result Comment: Bernadette Tucker, Lap Cutter (ASCP) Performed at: WB Performed By: #### 4 [id number] #### [facility] [address] [place] [address] Dr. Dustin Hoover Recommendation: Comment Abnormal [facility] Comment on above: Result Comment: Sugg est follow up as clinically appropriate. Performed at: WB Performed By: #### 4 [id number] #### [facility] [address] [place] [address] Dr. Dustin Hoover Specimen adequacy: Comment Normal [facility] Comment on above: Result Comment: Sati sfactory for evaluation. Endocervical and/or squamous metaplastic cells (endocervical component) are present. Performed at: WB Performed By: #### 4 [id number] #### [facility] [address] [address] [address] Dustin Hoover LIPID PROFILEon 05-28-2022 CHOL-HDL RATIO NORM SEE BELOW Normal [facility] Comment on above: Result Comment: 3.3 - 4.4 LOW RISK 4.4 - 7.1 AVERAGE RISK 7.1 - 11.0 MODERATE RISK >11.0 HIGH RISK Performed By: #### P TT, PT #### [facility] [address] [address] [address] Dustin Hoover Cholesterol [Mass/Vol] 180 mg/dL Normal <=200 [facility] Comment on above: Performed By: #### P TT, PT #### [facility] [address] [place] [address] Dr. Dustin Hoover Cholesterol in HDL [Mass/Vol] 32 mg/dL Critically low 40-60 [facility] Comment on above: Performed By: #### P TT, PT #### [facility] [address] [place] [address] Dr. Dustin Hoover Cholesterol in LDL [Mass/Vol] 108.6 mg/dL Normal [facility] Comment on above: Performed By: #### P TT, PT #### [facility] [address] [address] [address] Dustin Hoover Cholesterol.total/Cholest mitch in HDL [Mass ratio] 5.6 {ratio} Normal [facility] Comment on above: Performed By: #### P TT, PT #### [facility] [address] [address] [address] Dustin Hoover HDL NORMAL > or = 60 mg/dl - LO W CARDIOVASCULAR RISK <40 mg/dl - HIGH CARDIOVASCULAR RISK Normal [facility] Comment on above: Performed By: #### P TT, PT #### [facility] [address] [place] [address] Dr. Dustin Hoover LDL CALC NORMAL SEE BELOW Normal [facility] Comment on above: Result Comment: <100 mg/dl OPTIMAL 100 - 129 mg/dl NEAR OR ABOVE OPTIMAL 130 - 159 mg/dl BORDERLINE HIGH 160 - 189 mg/dl HIGH >190 mg/dl VERY HIGH Performed By: #### P TT, PT #### [facility] [address] [address] [address] Dustin Hoover Triglyceride [Mass/Vol] 197 mg/dL Critically high <=150 [facility] Comment on above: Performed By: #### P TT, PT #### [facility] [address] [address] [address] Dustin Hoover VLDL CALC 39.4 mg/dL Normal [facility] Comment on above: Performed By: #### P TT, PT #### [facility] [address] [place], [place] [address] Dr. Dustin Hoover MG MAMM SCREEN 3D JORGE LUIS CADon 05-28-2022 MG MAMM SCREEN 3D JORGE LUIS CAD Patient: JENNIFER MANZANO Exam Date: 05/28/2022 : 1980 Gender:F Ordering : DEMETRIA PHILLIPS Admission #: [id number] Family : Order #: [id number] CLICK HERE TO VIEW EXAM RADIOLOGY REPORT [...] breast cancer at age 64. LOCATION: [facility] BREAST COMPOSITION: Almost entirely fatty. FINDINGS: DIAGNOSTIC [...] Medina M.D. on 05/28/2022 at 13:16 Normal [facility] PROF 14(COMP METB)on 023 Albumin [Mass/Vol] 3.3 g/dL Critically low 3.4-5.0 [facility] Comment on above: Performed By: #### P TT, PT #### [facility] [address] [address] [address] Dustin Hoover Albumin/Globulin [Mass ratio] 0.9 {ratio} Normal [facility] Comment on above: Performed By: #### P TT, PT #### [facility] [address] [address] [address] Dustin Hoover ALP [Catalytic activity/Vol] 54 U/L Normal 46-116 [facility] Comment on above: Performed By: #### P TT, PT #### [facility] [address] [address] [address] Dustin Hoover ALT [Catalytic activity/Vol] 18 U/L Normal 14-59 [facility] Comment on above: Performed By: #### P TT, PT #### [facility] [address] [place] [address] Dr. Dustin Hoover Anion gap [Moles/Vol] 10.8 mmol/L Normal [facility] Comment on above: Performed By: #### P TT, PT #### [facility] [address] [place] [address] Dr. Dustin Hoover AST [Catalytic activity/Vol] 11 U/L Critically low 15-37 [facility] Comment on above: Performed By: #### P TT, PT #### [facility] [address] [place] [address] Dr. Dustin Hoover Bilirubin [Mass/Vol] 0.3 mg/dL Normal 0.2-1.0 [facility] Comment on above: Performed By: #### P TT, PT #### [facility] [address] [address] [address] Dustin Hoover Calcium [Mass/Vol] 8.5 mg/dL Normal 8.5-10.1 [facility] Comment on above: Performed By: #### P TT, PT #### [facility] [address] [address] [address] Dustin Hoover Chloride [Moles/Vol] 105 mmol/L Normal 98-107 [facility] Comment on above: Performed By: #### P TT, PT #### [facility] [address] [place] [address] Dr. Dustin Hoover CO2 [Moles/Vol] 26.2 mmol/L Normal 21.0-32.0 [facility] Comment on above: Performed By: #### P TT, PT #### [facility] [address] [place] [address] Dr. Dustin Hoover Creatinine [Mass/Vol] 0.61 mg/dL Normal 0.55-1.02 [facility] Comment on above: Performed By: #### P TT, PT #### [facility] [address] [place] [address] Dr. Dustin Hoover EGFR-AF GREEK >60 Normal >=60 [facility] Comment on above: Performed By: #### P TT, PT #### [facility] [address] [place] [address] Dr. Dustin Hoover EGFR-NON AF GREEK >60 Normal >=60 [facility] Comment on above: Performed By: #### P TT, PT #### [facility] [address] [place] [address] Dr. Dustin Hoover Globulin (S) [Mass/Vol] 3.7 g/dL Normal T [facility] Comment on above: Performed By: #### P TT, PT #### [facility] [address] [place] [address] Dr. Dustin Hoover Glucose [Mass/Vol] 99 mg/dL Normal 74-106 [facility] Comment on above: Performed By: #### P TT, PT #### [facility] [address] [place] [address] Dr. Dustin Hoover Potassium [Moles/Vol] 4.0 mmol/L Normal 3.5-5.1 [facility] Comment on above: Performed By: #### P TT, PT #### [facility] Laboratory [address] [place] [address] Dr. Dustin Hoover Protein [Mass/Vol] 7.0 g/dL Normal 6.4-8.2 [facility] Comment on above: Performed By: #### P TT, PT #### [facility] Laboratory [address] [place] [address] Dr. Dustin Hoover Sodium [Moles/Vol] 138 mmol/L Normal 136-145 [facility] Comment on above: Performed By: #### P TT, PT #### [facility] Laboratory [address] [place] [address] Dr. Dustin Hoover Urea nitrogen [Mass/Vol] 8.0 mg/dL Normal 7.0-18.0 [facility] Comment on above: Performed By: #### P TT, PT #### [facility] Laboratory [address] [place] [address] Dr. Dustin Hoover Urea nitrogen/Creatinine [Mass ratio] 13.1 mg/mg Normal [facility] Comment on above: Performed By: #### P TT, PT #### [facility] Laboratory [address] [place] [address] Dr. Dustin Hoover PROTIMEon 05-28-2022 INR Coag (PPP) [Relative time] 0.97 {INR} Normal [facility] Comment on above: Performed By: #### P TT, PT #### [facility] Laboratory [address] [place] [address] Dr. Dustin Hoover INR GUIDELINES SEE BELOW Normal [facility] Comment on above: Result Comment: MARIA DOLORES RED INR: 2.0 - 3.0 CONDITIONS NOT LISTED BELOW 2.5 - 3.5 FOR PROSTHETIC HEART VALVE REPLACEMENT 2.5 - 3.5 RECURRENT THROMBOSIS Performed By: #### P TT, PT #### [facility] Laboratory [address] [place] [address] Dr. Dustin Hoover PT Coag (PPP) [Time] 10.3 s Normal 9.0-11.6 [facility] Comment on above: Performed By: #### P TT, PT #### [facility] Laboratory [address] [place] [address] Dr. Dustin Hoover PTTon 05-28-2022 aPTT Coag (Bld) [Time] 26.9 s Normal 22.3-36.2 [facility] Comment on above: Performed By: #### P TT, PT #### [facility] Laboratory [address] [place] [address] Dr. Dustin Hoover CHLAMYDIA/GONOCOCCUS QUENTIN (SW AB/URINE/PAPon 05-27-2022 Chlamydia trachomatis, QUENTIN Negative Normal Negative [facility] Comment on above: Performed By: #### P TT, PT #### [facility] Laboratory [address] [place] [address] Dr. Dustin Hoover Neisseria gonorrhoeae, QUENTIN Negative Normal Negative [facility] Comment on above: Performed By: #### P TT, PT #### [facility] Laboratory [address] [place] [address] Dr. Dustin Hoover DHEA SERUMon 05-27-2022 Dehydroepiandrosterone (DHEA) 382 ng/dL Normal 31-701 [facility] Comment on above: Performed By: #### P TT, PT #### [facility] Laboratory [address] [place] [address] Dr. Dustin Hoover VAGINITIS/VAGINOSIS DNA PROB Michael 05-27-2022 Catherine species Negative Normal Negative [facility] Comment on above: Performed By: #### V AGINT #### [facility] Laboratory [address] [place] [address] Dr. Dustin Hoover Gardnerella vaginalis Positive Abnormal Negative [facility] Comment on above: Performed By: #### V AGINT #### [facility] Laboratory [address] [place] [address] Dr. Dustin Hoover Trichomonas vaginalis Positive Abnormal Negative [facility] Comment on above: Performed By: #### V AGINT #### [facility] Laboratory [address] [place] [address] Dr. Dustin Hoover DHEA-SULFATEon 05-26-2022 DHEA-Sulfate 48.3 ug/dL Critically low 57.3-279.2 [facility] Comment on above: Performed By: #### D HEASUL #### [facility] Laboratory [address] [place] [address] Dr. Dustin Hoover FSHon 05-26-2022 FSH 14.7 mIU/mL Normal [facility] Comment on above: Result Comment: Adul t Female: Follicular phase 3.5 - 12.5 Ovulation phase 4.7 - 21.5 Luteal phase 1.7 - 7.7 Postmenopausal 25.8 - 134.8 Performed By: #### P TT, PT #### [facility] Laboratory [address] [place] [address] Dr. Dustin Hoover HEPATITIS PANEL, ACUTEon HBsAg Screen Negative Normal Negative [facility] Comment on above: Performed By: #### H EPACUT #### [facility] Laboratory [address] [place] [address] Dr. Dustin Hoover HCV AB Non-Reactive Normal Non Reactive [facility] Comment on above: Performed By: #### H EPACUT #### [facility] Laboratory [address] [place] [address] Dr. Dustin Hoover Hep A Ab, IgM Negative Normal Negative [facility] Comment on above: Performed By: #### H EPACUT #### [facility] Laboratory [address] [place] [address] Dr. Dustin Hoover Hep B Core Ab, IgM Negative Normal Negative [facility] Comment on above: Performed By: #### H EPACUT #### [facility] Laboratory [address] [place] [address] Dr. Dustin Hoover Interpretation: Comment Normal [facility] Comment on above: Result Comment: Not infected with HCV unless early or acute infection is suspected (which may be delayed in an immunocompromised individual), or other evidence exists to indicate HCV infection. Performed By: #### H EPACUT #### [facility] Laboratory [address] [place] [address] Dr. Dustin Hoover HIV 1 AND 2 WITH REFLEXon HIV Screen 4th Generation wRfx Non-Reactive Normal Non Reactive [facility] Comment on above: Result Comment: HIV Negative HIV-1/HIV-2 antibodies and HIV-1 p24 antigen were NOT detected. There is no laboratory evidence of HIV infection. Performed By: #### H IV12 #### [facility] Laboratory [address] [place] [address] Dr. Dustin Hoover LUTEINIZING HORMONE (LH)on 0 05-26-2022 LH 41.0 mIU/mL Normal [facility] Comment on above: Result Comment: Adul t Female: Follicular phase 2.4 - 12.6 Ovulation phase 14.0 - 95.6 Luteal phase 1.0 - 11.4 Postmenopausal 7.7 - 58.5 Performed By: #### L [facility] #### [facility] Laboratory [address] [place] [address] Dr. Dustin Hoover RPR QUANTon 05-26-2022 Rapid Plasma Reagin, Quant Non-Reactive Normal NonRea<1:1 [facility] Comment on above: Result Comment: Elder dickinson Note: This test does not meet current guidelines for screening and diagnosis of syphilis. This test is intended for following treatment response in patients being treated for syphilis infection. To screen for syphilis infection, a reflex cascade that includes both RPR and a treponema-specific assay should be utilized, such as Treponema pallidum (Syphilis) Screening Crosby (791281) or Rapid Plasma Reagin (RPR) Test With Reflex to Quantitative RPR and Confirmatory Treponema pallidum Antibodies (741290). Performed By: #### P TT, PT #### [facility] Laboratory [address] [place] [address] Dr. Dustin Hoover CBC AUTO DIFFon 05-25-2022 BASO # 0.1 103/ul Normal 0.0-0.1 [facility] Comment on above: Performed By: #### C BC #### [facility] Laboratory [address] [place] [address] Dr. Dustin Hoover Basophils/100 WBC (Bld) 0.7 % Normal 0.2-2.0 [facility] Comment on above: Performed By: #### C BC #### [facility] [address] [place] [address] Dr. Dustin Hoover EO # 0.5 103/ul Normal 0.0-0.7 [facility] Comment on above: Performed By: #### C BC #### [facility] [address] [place] [address] Dr. Dustin Hoover Eosinophils/100 WBC (Bld) 2.6 % Normal 0.9-7.0 [facility] Comment on above: Performed By: #### C BC #### [facility] Laboratory [address] [place] [address] Dr. Dustin Hoover Erythrocyte distribution width (RBC) [Ratio] 17.2 % Critically high 11.0-15.0 [facility] Comment on above: Performed By: #### C BC #### [facility] Laboratory [address] [place] [address] Dr. Dustin Hoover Hematocrit (Bld) [Volume fraction] 39.7 % Normal 36.0-48.0 [facility] Comment on above: Performed By: #### C BC #### [facility] Laboratory [address] [place] [address] Dr. Dustin Hoover Hemoglobin (Bld) [Mass/Vol] 12.4 g/dL Normal 12.0-16.0 [facility] Comment on above: Performed By: #### C BC #### [facility] Laboratory [address] [place] [address] Dr. Dustin Hoover IG # 0.13 10e3/ul Critically high 0.00-0.03 [facility] Comment on above: Performed By: #### C BC #### [facility] Laboratory [address] [place] [address] Dr. Dutsin Hoover IG % 0.7 % Critically high 0.0-0.5 [facility] Comment on above: Performed By: #### C BC #### [facility] [address] [place] [address] Dr. Dustin Hoover LYMPH # 4.1 103/ul Critically high 1.2-3.8 [facility] Comment on above: Performed By: #### C BC #### [facility] Laboratory [address] [place] [address] Dr. Dustin Hoover Lymphocytes/100 WBC (Bld) 22.9 % Normal 20.5-60.0 [facility] Comment on above: Performed By: #### C BC #### [facility] Laboratory [address] [place] [address] Dr. Dustin Hoover MANUAL DIFF REQ NO Normal [facility] Comment on above: Performed By: #### C BC #### [facility] Laboratory [address] [place] [address] Dr. Dustin Hoover MCH (RBC) [Entitic mass] 23.8 pg Critically low 26.7-34 .0 [facility] Comment on above: Performed By: #### C BC #### [facility] Laboratory [address] [place] [address] Dr. Dustin Hoover MCHC (RBC) [Mass/Vol] 31.2 g/dL Normal 29.9-35.2 [facility] Comment on above: Performed By: #### C BC #### [facility] Laboratory [address] [place] [address] Dr. Dustin Hoover MCV (RBC) [Entitic vol] 76.2 fL Critically low 81.0-99. 0 [facility] Comment on above: Performed By: #### C BC #### [facility] Laboratory [address] [place] [address] Dr. Dustin Hoover MONO # 1.3 103/ul Critically high 0.3-0.8 [facility] Comment on above: Performed By: #### C BC #### [facility] Laboratory [address] [place] [address] Dr. Dustin Hoover Monocytes/100 WBC (Bld) 7.0 % Normal 1.7-12.0 [facility] Comment on above: Performed By: #### C BC #### [facility] [address] [place] [address] Dr. Dustin Hoover NEUT # 11.9 103/ul Critically high 1.4-6.5 [facility] Comment on above: Performed By: #### C BC #### [facility] Laboratory [address] [place] [address] Dr. Dustin Hoover Neutrophils/100 WBC (Bld) 66.1 % Normal 43.0-75.0 [facility] Comment on above: Performed By: #### C BC #### [facility] Laboratory [address] [place] [address] Dr. Dustin Hoover Platelet mean volume (Bld) [Entitic vol] 10.1 fL Normal 9.5-13.5 [facility] Comment on above: Performed By: #### C BC #### [facility] Laboratory [address] [place] [address] Dr. Dustin Hoover PLT 499 103/ul Critically high 150-450 [facility] Comment on above: Performed By: #### C BC #### [facility] Laboratory [address] [place] [address] Dr. Dustin Hoover RBC 5.21 106/ul Normal 4.20-5.40 [facility] Comment on above: Performed By: #### C BC #### [facility] Laboratory [address] [place] [address] Dr. Dustin Hoover WBC 18.0 103/ul Critically high 4.0-11.0 [facility] Comment on above: Performed By: #### C BC #### [facility] Laboratory [address] [place] [address] Dr. Dustin Hoover FREE T4on 05-25-2022 Free T4 [Mass/Vol] 0.82 ng/dL Normal 0.76-1.46 [facility] Comment on above: Performed By: #### P TT, PT #### [facility] Laboratory [address] [place] [address] Dr. Dustin Hoover GLYCOHEMOGLOBIN A1Con 2022 ADA RECOMMENDATION SEE BELOW Normal [facility] Comment on above: Result Comment: ADA RECOMMENDED LIMIT 4.0 - 6.0 ADA THERAPEUTIC TARGET < 7.0 ACTION SUGGESTED > 7.0 Performed By: #### A 1C #### [facility] Laboratory [address] [place] [address] Dr. Dustin Hoover Glucose [Mass/Vol] 108 mg/dL Normal [facility] Comment on above: Performed By: #### A 1C #### [facility] Laboratory [address] [place] [address] Dr. Dustin Hoover HbA1c (Bld) [Mass fraction] 5.4 % Normal 4.5-6.2 [facility] Comment on above: Performed By: #### A 1C #### [facility] Laboratory [address] [place] [address] Dr. Dustin Hoover PREG QUANT HCGon 05-25-2022 HCG QUANT 1 mIU/mL Normal [facility] Comment on above: Performed By: #### P TT, PT #### [facility] Laboratory [address] [place], [place] [address] Dr. Dustin Hoover HCG RANGE SEE BELOW Normal [facility] Comment on above: Result Comment: 5-50 0.2-1 WEEK 50-500 1-2 WEEKS 100-5,000 2-3 WEEKS 500-10,000 3-4 WEEKS 1,000-50,000 4-5 WEEKS 10,000-100,000 5-6 WEEKS 15,000-200,000 6-8 WEEKS 10,000-100,000 2-3 MONTHS Performed By: #### P TT, PT #### [facility] Laboratory [address] [address] [address] Dustin Hoover TSHon 05-25-2022 TSH 2.768 uIU/mL Normal 0.358-3.740 [facility] Comment on above: Performed By: #### P TT, PT #### [facility] Laboratory [address] [place] [address] Dr. Dustin Hoover Vital Signs Date Time Vital Sign Value Performing Clinician Facility 12-24-2023 18:23-0400 Body mass index (BMI) [Ratio] 56.55 kg/m2 [facility] [employer] [facility] 12-24-2023 18:23-0400 Body weight 140.25 kg [employer]ch[employer] Phone: [facility] [employer] [facility] 06-25-2023 15:14-0400 Body temperature 98.1 [degF] [facility] 06-25-2023 15:14-0400 Diastolic blood pressure 88 mm[Hg] [facility] 06-25-2023 15:14-0400 Heart rate 105 /min [facility] 06-25-2023 15:14-0400 Respiratory rate 18 /min [facility] 06-25-2023 15:14-0400 SaO2% (BldA) [Mass fraction] 95 % [facility] 06-25-2023 15:14-0400 Systolic blood pressure 119 mm[Hg] [facility] 06-23-2023 14:22-0400 Body height 157.[address] [facility] 06-22-2023 22:00-0400 Body weight 147.[address] [facility] 06-03-2023 21:42-0400 Body mass index (BMI) [Ratio] 59.55 kg/m2 Butch Furlong DO Work Phone: [facility] [employer] [facility] 06-03-2023 21:42-0400 Body weight 147.69 kg Butch Furlong DO Work Phone: [facility] [employer] [facility] 05-28-2023 18:56-0400 Body mass index (BMI) [Ratio] 61.16 kg/m2 Butch Furlong DO Work Phone: [facility] [employer] [facility] 05-28-2023 18:56-0400 Body weight 151.68 kg Butch Furlong DO Work Phone: [facility] [employer] [facility] 05-28-2023 18:56-0400 Diastolic blood pressure 68 mm[Hg] Butch Furlong DO Work Phone: [facility] [employer] [facility] 05-28-2023 18:56-0400 Heart rate 71 /min Butch Furlong DO Work Phone: [facility] [employer] [facility] 05-28-2023 18:56-0400 Systolic blood pressure 104 mm[Hg] Butch Furlong DO Work Phone: [facility] [employer] [facility] 05-18-2023 19:08-0400 Body mass index (BMI) [Ratio] 60.36 kg/m2 Megan Cash APRN-NATUROPATHIC ONCOLOGY PROVIDER Work Phone: [facility] [employer] [facility] 05-18-2023 19:08-0400 Body temperature 98.01 [degF] Megan Cash APRN-NATUROPATHIC ONCOLOGY PROVIDER Work Phone: [facility] [employer] [facility] 05-18-2023 19:08-0400 Body weight 149.69 kg Megan Cash APRN-NATUROPATHIC ONCOLOGY PROVIDER Work Phone: [facility] [employer] [facility] 05-18-2023 19:08-0400 Diastolic blood pressure 68 mm[Hg] Megan JEWELL Work Phone: [employer] 05-18-2023 19:08-0400 Heart rate 71 /min Megan JEWELL [facility] 05-18-2023 19:08-0400 Respiratory rate 18 /min Megan JEWELL [facility] 05-18-2023 19:08-0400 SaO2% (BldA) [Mass fraction] 98 % Megan JEWELL [facility] 05-18-2023 19:08-0400 Systolic blood pressure 104 mm[Hg] Megan JEWELL [facility] 05-14-2023 18:39-0500 Body mass index (BMI) [Ratio] 57.5 kg/m2 Butch Furlong DO [facility] 05-14-2023 18:39-0500 Body temperature 97.59 [degF] Butch Furlong DO Work [facility] 05-14-2023 18:39-0500 Body weight 142.61 kg Butch Furlong DO [facility] 05-14-2023 18:39-0500 Diastolic blood pressure 68 mm[Hg] Butch Furlong DO [facility] 05-14-2023 18:39-0500 Heart rate 90 /min Butch Furlong DO [facility] 05-14-2023 18:39-0500 Respiratory rate 18 /min Butch Furlong DO [facility] 05-14-2023 18:39-0500 SaO2% (BldA) [Mass fraction] 98 % Butch Furlong DO [facility] 05-14-2023 18:39-0500 Systolic blood pressure 110 mm[Hg] Butch Furlong DO [facility] 04-30-2023 17:38-0500 Body height 157.5 cm Butch Furlong DO [facility] 04-30-2023 17:38-0500 Body mass index (BMI) [Ratio] 56.53 kg/m2 Butch Furlong DO [facility] 04-30-2023 17:38-0500 Body temperature 97.81 [degF] Butch Furlong DO [facility] 04-30-2023 17:38-0500 Body weight 140.2 kg Butch Furlong DO [facility] 04-30-2023 17:38-0500 Diastolic blood pressure 62 mm[Hg] Butch Furlong DO [facility] 04-30-2023 17:38-0500 Heart rate 106 /min Butch Furlong DO [facility] 04-30-2023 17:38-0500 Respiratory rate 20 /min Butch Furlong DO Work Phone: [facility] [employer] 04-30-2023 17:38-0500 SaO2% (BldA) [Mass fraction] 91 % Butch Furlong DO [facility] Phone[facility] 04-30-2023 17:38-0500 Systolic blood pressure 99 mm[Hg] Butch Furlong DO Work Phone[facility] Encounters Encounter Date Encounter Type Care Provider Facility Start: 12-24-2023 End: 12-24-2023 ambulatory Butch Malik Furlong DO Work Phone: [facility] Comment on above: Cutaneous candidiasi s (Primary Dx); Morbid obesity (CMS-HCC); Muscle weakness (generalized); Other abnormalities of gait and mobility; Spinal stenosis of lumbar region, unspecified whether neurogenic claudication present Start: 10-22-2023 End: 10-22-2023 ambulatory NON STAFF [facility] Work Phone: Start: 10-22-2023 End: 10-22-2023 Departed Referred [facility] Start: 09-30-2023 [...] Not Available Start: 07-08-2023 End: 07-08-2023 ambulatory [facility] Start: 2023 End: 2023 ambulatory TRAV VALDOVINOS Not Available Start: 06-23-2023 Non-patient / Non-visit [facility] Work Phone: Start: 06-22-2023 End: 06-25-2023 Evaluation and management of inpatient [facility] Work Phone: Start: 06-22-2023 End: 06-22-2023 Emergency department patient visit BUTCH OLIVA [facility] Start: 06-22-2023 ambulatory Joseph Tello Tarun acility:[facility] Start: 06-03-2023 ambulatory Butch robins DO Work Phone: [facility] Comment on above: Pedal edema (Primary Dx); Intertrigo; Morbid obesity ([facility]) Start: 05-28-2023 ambulatory Butch robins DO Work Phone: [facility] Comment on above: Bilateral primary os teoarthritis of hip (Primary Dx); Muscle weakness (generalized); Other abnormalities of gait and mobility; Spinal stenosis of lumbar region, unspecified whether neurogenic claudication present Start: 05-18-2023 Continuing Care Megan ga LAB PACK CHEMIST-NATUROPATHIC ONCOLOGY PROVIDER Work Phone: [facility] Comment on above: Spinal stenosis of l umbar region, unspecified whether neurogenic claudication present (Primary Dx); Bipolar affective disorder, current episode mixed, current episode severity unspecified ([facility]); Primary osteoarthritis of both hips; Schizophrenic disorder ([facility]); Class 3 severe obesity due to excess calories with serious comorbidity and body mass index (BMI) of 60.0 to 69.9 in adult ([facility]); Full code status Start: 05-14-2023 Continuing Care Butch robins DO Work Phone: [facility] Comment on above: Spinal stenosis of l umbar region, unspecified whether neurogenic claudication present (Primary Dx); Bilateral primary osteoarthritis of hip; Muscle weakness (generalized); Other abnormalities of gait and mobility; Bipolar affective disorder, current episode mixed, current episode severity unspecified ([facility]); Schizophrenic disorder ([facility]) Start: 04-30-2023 Continuing Care Butch robins DO Work Phone: [facility] Comment on above: Spinal stenosis of l umbar region, unspecified whether neurogenic claudication present (Primary Dx); Syphilis (acquired); Bipolar affective disorder, current episode mixed, current episode severity unspecified ([facility] Anxiety; Primary osteoarthritis of both hips; TB lung, latent; Schizophrenic disorder ([facility]); Class 3 severe obesity due to excess calories without serious comorbidity with body mass index (BMI) of 50.0 to 59.9 in adult ([facility]) Start: 04-26-2023 Registered Recur[address] [facility] Credible Start: 07-23-2022 ambulatory DEMETRIA SHAMMO Facility:H 1 Start: 06-30-2022 ambulatory DEMETRIA SHAMMO Facility:H 1 Start: 06-16-2022 End: 06-17-2022 ambulatory DEMETRIA SHAMMO Facility:H1 Start: 06-09-2022 ambulatory DEMETRIA SHAMMO Facility:H 1 Start: 06-02-[address] MAZIN MORENO . Facili ty:H1 Start: 05-29-2022 Encounter for genera l adult medical examination without abnormal findings DEMETRIA SHAMMO [facility] Start: 05-28-2022 End: 05-28-2022 ambulatory [...] aspir&/inj major jt/bursa w/us Edward Lee Arita Work Phone: Start: 09-03-2023 Arthrocentesis aspir &/inj major jt/bursa w/o us Tang Sloan PA-C Work Phone: Start: 09-03-2023 Radex hips bilateral with pelvis minimum 5 views Tang Sloan PA-C Work Phone: Plan of Treatment Date Care Activity Detail Author Start: 05-28-2032 DTaP,Tdap and Td Vaccines (2 - Td or Tdap) DTaP,Tdap and Td Vaccines (2 - Td or Tdap) [facility] Start: 05-28-2032 Urine microalbumin profile DTaP,Tdap,Td Vaccine (2 - Td or Tdap) [facility] Start: 03-09-2026 Screening for malign ant neoplasm of cervix Cervical Cancer Screening [facility] Start: 12-02-2024 Adult BMI Screening Adult BMI Screen ing [facility] Start: 07-07-2024 Tobacco Screening Tobacco Screening [facility] Start: 05-27-2024 Adult BMI Screening Adult BMI Screen ing [facility] Start: 05-23-2024 Tobacco Screening Tobacco Screening [facility] Start: 05-20-2024 Tobacco Screening Tobacco Screening [facility] Start: 05-17-2024 Adult BMI Screening Adult BMI Screen ing [facility] Start: 04-30-2024 Adult BMI Screening Adult BMI Screen ing [facility] Start: 04-30-2024 Tobacco Screening Tobacco Screening [facility] Start: 01-31-2024 Tobacco Screening Tobacco Screening [facility] Start: 11-07-2023 Covid-19 Vaccine ( season) Covid-19 Vaccine ( season) [facility] Start: 11-07-2023 Influenza vaccination [facility] Start: 10-22-2023 [facility] Start: 09-30-2023 End: 09-30-2023 Patient encounter procedure 09/30/2023 9:15 AM EDT Office Visit Orthopaedics [address] [place] [address] Edward Arita, DO [address] [place] [address] Bilateral USGI Hip injections Orthopaedics Comment on above: Bilateral USGI Hip i njections Start: 06-25-2023 [facility] Start: 06-24-2023 Referral to barrel painter [facility] Start: 06-24-2023 Referral to clinical founding partner [facility] Start: 06-22-2023 Hospital [facility] Start: 06-22-2023 [facility] Start: 03-08-2023 Behavioral Health Screening Behavioral Health Screening [facility] Start: 11-06-2022 Covid-19 Vaccine ( season) Covid-19 Vaccine ( season) [facility] Start: 11-06-2022 Influenza vaccination Influenza Vacc ine [facility] Start: 2019 Screening for malign ant neoplasm of breast Mammogram Screening [facility] Start: 06-28-2000 Screening for malign ant neoplasm of cervix Pap Smear [facility] Start: 06-28-1998 Hepatitis B Vaccine (1 of 3 - 19+ 3-dose series) Hepatitis B Vaccine (1 of 3 - 19+ 3-dose series) [facility] Start: 06-28-1997 Adult BMI Follow Up Plan Adult BMI Follow Up Plan [facility] Start: 06-28-1997 Anxiety Screening Anxiety Screening [facility] Start: 06-28-1997 Depression Screening Depression Scre ing [facility] Start: 06-28-1997 HIV screening HIV Screening [facility] Start: 1991 Depression Screening Depression Scre ing [facility] Start: 06-28-1985 Pneumococcal vaccination Pneumococcal Vaccine (1 of 2 - PCV) [facility] Start: 1979 Tobacco Counseling Tobacco Counselin g [facility] Patient Education Depression, Ad ult (DC) [facility] Behavioral Health DC Instructions [facility] Work Phone: Patient referral [facility] Work Phone: Immunizations Immunization Date Immunization Notes Care Provider Fa natalie 05-28-2022 tetanus toxoid, redu radha diphtheria toxoid, and acellular pertussis vaccine, adsorbed Butch Oliva DO Work Phone: [facility] [employer] [facility] Payers Date Payer Category Payer Private Health Insurance HU[employer]NA [place] [id number] 2023-Present [address] [address] [place] [address] Medicaid [id number] 2023 Self-pay 2022 Medicaid [id number] 2006 Medicaid [id number] 1979 Unknown [id number] 2.16.840.1.922565.3.579.2.5 1979 Unknown [id number] 2.16.840.1.858010.3.579.2.5 1979 Unknown [id number] 2.16.840.1.749303.3.579.2.5 1979 Unknown [id number] 2.16.840.1.510032.3.579.2.5 1979 Unknown [id number] 2.16.840.1.512218.3.579.2.5 1979 Unknown [id number] 2.16.840.1.538111.3.579.2.5 1979 Unknown [id number] 2.16.840.1.305275.3.579.2.5 1979 Unknown [id number] 2.16.840.1.830989.3.579.2.5 1979 Unknown [id number] 2.16.840.1.811944.3.579.2.5 1979 Unknown [id number] 2.16.840.1.147420.3.579.2.5 93 1979 Unknown [id number] 2.16.840.1.983393.3.579.2.5 93 1979 Unknown [id number] 2.16.840.1.818260.3.579.2.1 286 1979 Unknown [id number] 2.16.840.1.180907.3.579.2.1 286 1979 Unknown [id number] 2.16.840.1.864132.3.579.2.1 259 1979 Unknown [id number] 2.16.840.1.323125.3.579.2.1 259 1979 Unknown [id number] 2.16.840.1.766892.3.579.2.1 259 1979 Unknown [id number] 2.16.840.1.585095.3.579.2.1 259 1979 Unknown [id number] 2.16.840.1.631582.3.579.2.1 259 1979 Unknown [id number] 2.16.840.1.204463.3.579.2.1 259 Unknown [id number] 2.16.840.1.157670.3.579.2.5 31 Unknown [id number] 2.16.840.1.292390.3.579.2.5 31 Unknown [id number] 2.16.840.1.133412.3.579.2.5 31 Social History Date Type Detail Facility Start: 05-17-2007 End: 04-30-2023 Tobacco smoking status MEIS Smokes tobacco daily [facility] Start: 03-08-1989 End: 02-05-2023 History of tobacco use Cigarette Smoker [facility] Start: 01-24-2023 End: 04-30-2023 Cigarettes smoked current (pack per day) - Reported 0.3 [facility] History of tobacco use Passive smoker [facility] Start: 04-30-2023 End: 10-19-2023 Tobacco use and exposure Smokeless tobacco non-user [facility] Start: 04-30-2023 End: 10-19-2023 Alcohol intake Ex-drinker (finding) [facility] Start: 01-24-2023 End: 04-30-2023 Tobacco use panel [facility] In the past 12 month s, has lack of transportation kept you from medical appointments or from getting medications? Yes [facility] Start: 04-30-2023 Tobacco Comment Started smoking at 9 years of age [facility] Start: 1980 Sex Assigned At Not on file [facility] Start: 03-08-1989 End: 02-05-2023 Tobacco smoking status NHIS Smoker (finding) [facility] Start: 1980 Sex Assigned At Female [facility] Start: 07-07-2010 Alcohol intake Current non-drinker of alcohol (finding) [facility] Tobacco smoking stat us [facility] Tobacco smoking consumption unknown [facility] Start: 10-19-2023 Tobacco smoking status [facility] Ex-smoker [facility] Start: 10-11-2014 Sex Female (finding) [facility] Goals Date Patient Goal Desired Activity /State Functional Status Date Assessment Result Facility 06-25-2023 Functional status Patient at Baseline [facility] Work Phone: Mental Status Date Assessment Result Facility 06-25-2023 Cognitive function Cognitive Sta tus Patient at Baseline [facility] Work Phone: Clinical Notes 05-21-2022 to 12-24-2023 Butch Oliva, - 12/24/2023 6:22 PM ARLETTPEdward li, DO - 09/30/2023 11:42 AM EDTPatient Tang Chong PA-C - 09/03/2023 9:00 AM EDT Note Date & Type Note Facility 12-24-2023 History of Presen t illness Narrative Patient Name: Jennifer Mendes Date of : 1980 Date of Service: 12/24/2023 Facility: [facility] Type of Visit: Acute Visit Subjective Jennifer Mendes is a 43 y.o. female seen today at [facility] facility for problem visit. Nurses report that the fungal infection under her breasts and abdominal fold is back. She does have nystatin powder order twice a day but it is excoriated. Nursing is asking for an oral medication for it. Patient says she has not been receiving the nystatin powder. She would also like to shower every other day as she thinks that would help with her hygiene instead of twice a week. I think that is reasonable. She continues to lose weight and she is very happy with the weight loss that she has had. She is on phentermine and not having any side effects. Denies any chest pain or shortness a breath. Back pain is about the same. She has had some medication adjustments from Psychiatry. Allergies: Metronidazole Code Status: FULL CODE Wt (!) 140.3 kg (309 lb 3.2 oz) BMI 56.55 kg/m Physical Exam Constitutional: General: She is not in acute distress. Appearance: She is morbidly obese. She is not ill-appearing. Comments: In WC in room HENT: Head: Normocephalic. Cardiovascular: Rate and Rhythm: Normal rate and regular rhythm. Pulses: Normal pulses. Heart sounds: Normal heart sounds. No murmur heard. Pulmonary: Effort: Pulmonary effort is normal. No respiratory distress. Breath sounds: Normal breath sounds. No wheezing, rhonchi or rales. Musculoskeletal: Cervical back: Neck supple. Lymphadenopathy: Cervical: No cervical adenopathy. Neurological: General: No focal deficit present. Mental Status: She is alert and oriented to person, place, and time. Psychiatric: Attention and Perception: Attention normal. Mood and Affect: Mood normal. Speech: Speech normal. Behavior: Behavior normal. Behavior is cooperative. Thought Content: Thought content normal. Cognition and Memory: Cognition normal. Judgment: Judgment normal. Summary / Assessment / Plan 1. Cutaneous candidiasis 2. Morbid obesity (CMS-HCC) 3. Muscle weakness (generalized) 4. Other abnormalities of gait and mobility 5. Spinal stenosis of lumbar region, unspecified whether neurogenic claudication present I am going to add Diflucan 150 mg once a week x4 weeks. I rewrote the order for nystatin powder twice a day to make sure that she is getting it. It was on her order list but she said she was not getting it. I am also going to order shower every other day as I think this would also help eliminate the infection and reduce the risk of recurrence. Continue phentermine. She is using high risk medication with benefit. She is deriving benefit. She will likely need surgery on her back and it would be important to get down to a lower weight. All other medications reviewed and are medically necessary. ELECTRONICALLY SIGNED BY: Butch Oliva DO documented in this encounter [facility] 09-30-2023 History of Presen t illness Narrative Associated Order(s): Large Joint Arthro/Inj: bilateral hip joints Post-Procedure Diagnose(s): Primary osteoarthritis of both hips Patient presents for a bilateral hips injection. Large Joint Arthro/Inj: bilateral hip joints Informed Consent Consent Obtained: Verbal [place] Protocol A moment to CARE was completed. [...] Arita DO 09/30/2023 documented in this encounter [facility] 09-03-2023 Instructions Tang Sloan PA-C - 09/03/2023 [...] MUCH MORE DANGEROUS. documented in this encounter [facility] 09-03-2023 Note HNO ID: [id number] Author: TANG SLOAN PA-C Service: ? Author Type: Physician Skoog Patching Machine Operator Type: Progress Notes Filed: 09/07/2023 16:29 [...] She reports that she moved here from [place] and moved in with her sisters in the last few years but moved into a prison in the last year when she could not get around or do self-care. She is now living in a prison facility. Has significant pain in her back [...] gabapentin and methadone all given at the prison without great pain control. She has done physical therapy as well. She has schizoaffective disorder but otherwise is fairly healthy. She notes that her weight was 268 when she entered the prison but is now 320. Pain level is [...] Significant tenderness o (more content not included)... [facility] 09-03-2023 History of Presen t illness [...] She reports that she moved here from [place] and moved in with her sisters in the last few years but moved into a prison in the last year when she could not get around or do self-care. She is now living in a prison facility. Has significant pain in her back [...] gabapentin and methadone all given at the prison without great pain control. She has done physical therapy as well. She has schizoaffective disorder but otherwise is fairly healthy. She notes that her weight was 268 when she entered the prison but is now 320. Pain level is [...] been 268 pounds when she entered the prison and is now 320. She needs to [...] trochanteric bursa Informed Consent Consent Obtained: Verbal [place] Protocol A moment to CARE was completed. [...] TIME: 9:09 AM documented in this encounter [facility] 09-03-2023 Note HNO ID: [id number] Author: JULY MORRISON RT(R) Service: ? Author [...] PATIENT PRESENTS WITH AN IMPLANTABLE OR ATTACHED CORN SHELLER OPERATOR: No RADIOLOGY DEPARTMENT: General X-ray: Exam(s) Completed: Pelvis X-Ray: Pelvis with Hip Bilateral PERIPHERAL IV DATA: Not applicable SIGNED BY: RT Devi(R) September 03, 2023 8:51 AM [facility] 09-03-2023 History of Presen t illness [...] PATIENT PRESENTS WITH AN IMPLANTABLE OR ATTACHED CORN SHELLER OPERATOR: No RADIOLOGY DEPARTMENT: General X-ray: Exam(s) Completed: Pelvis X-Ray: Pelvis with Hip Bilateral PERIPHERAL IV DATA: Not applicable SIGNED BY: RT Devi(R) September 03, 2023 8:51 AM documented in this encounter [facility] 06-25-2023 Discharge summary Note Date/Time June 25, 2023 7:11am [place] [address] Discharge Summary Signed Patient: Jennifer Mendes MR#: [id number] : 1980 Acct:[id number] Age/Sex: 42 / F Adm Date: 4 Loc: 1S Room: [address] [place] [address]: Joseph Tello MD Copies to: NON STAFF Joseph Tello MD~ Providers Date of Discharge: 06/25/23 Discharging Provider: Joseph Tello Primary Care Provider: ANTONY STAFF Consults: 06/23/23 07:38 OT [Consult to [...] unit milieu. She has been working with family independence case manager on her aftercare she agreed [...] 99 Discharge Plan Discharge Plan Patient Disposition: residential [place] Care/Resident Activity: With Assist Diet: Regular Additional Instructions: Important Contact Information You can call [facility] at [phone] any time day or night if you have emergent questions or question regarding discharge instructions. If at any time you are feeling an increase inyour psychiatric symptoms, call your physician or behavioral healthcare provider. If any time you have thoughts of harming yourself or others contact one of the following: Call 8-8 (available 28/09) Crisis Text Line (available 28/09) text 4HOPE to [phone] [facility] Hope Line (available 8 a.m. Midnight) call [phone] ([phone]) Prescriptions: Continued aripiprazole 20 mg tablet 20 [...] tablet 600 mg PO TID [facility] [Other] (facility to manage all care and needs) Exam Physical Exam Vital Signs: Temp Pulse Resp BP Pulse Ox O2 Del Method 97.9 F 78 18 90/65 L 96 Room Air 06/24/23 20:20 06/24/23 20:20 06/24/23 20:20 06/24/23 20:20 06/24/23 20:20 06/24/23 20:20 Documented By: Joseph Tello MD 4 [id number] Signed By: <Electronically signed by Joseph Tello MD> 06/25/23 0711 [facility] Work Phone: 1(909) 993-847104-19-2024 Consult note Author Linsey Pradhan [facility] June 24, 2023 11:55pm Note Date/Time June 24, 2023 12: 47pm [facility] [address] [place] [address] Hospitalist Consult Note Signed Patient: Jennifer Mendes MR#: [id number] : 1980 Acct:[id number] Age/Sex: 42 / F Adm Date: 4 Loc: Room: [address] [place] [address] Type: ADM IN Attending Dr: Joseph Tello [...] Signed By: <Electronically signed by CECY Vann> 06/24/236 <Electronically signed by Linsey Pradhan MD> 06/24/23 3736 [facility] Work Phone: 1(972) 330-535404-18-2024 Progress note Author Joseph martinez [facility] June 24, 2023 6:40am Note Date/Time June 24, 2023 6:4 0am [facility] [address] [place] [address] Psychiatry Progress Note Signed Patient: Jennifer Mendes MR#: [id number] : 1980 Acct:[id number] Age/Sex: 42 / F Adm Date: 4 Loc: 1S Room: 3C3177-1 Type : ADM IN Attending Dr: Joseph [...] signed by Joseph Tello MD> 06/24/23 0640 [facility] Work Phone: 1(383) 588-453704-17-2024 History and physical note Author Joseph martinez [facility] June 23, 2023 9:03am Note Date/Time June 23, 2023 8:5 8am [facility] [address] [place] [address] Psychiatry H&P Signed Patient: Jennifer Mendes MR#: [id number] : 1980 Acct:[id number] Age/Sex: 42 / F Adm Date: 4 Loc: Room: [address] [place] [address] Type: ADM IN Attending Dr: Joseph Tello MD Copies to: NON STAFF Jospeh Tello MD~ Date of Service: 06/23/2023 HPI [...] signed by Joseph Tello MD> 06/23/23 0903 [facility] Work Phone: 1(175) 399-546003-28-2024 History of Present illness Narrative* Butch Oliva, DO - 06/03/2023 9:42 PM EDT Patient Name: Jennifer Mendes Date of : 1980 Date of Service: 06/03/2023 Facility: [facility] Type of Visit: Skilled Visit Subjective Jennifer Mendes is a 42 y.o. female seen today at [facility] facility for acute visit. Jennifer She was [...] BY: Butch Oliva DO [facility] History of Present illness Narrative* Butch Oliva DO - 05/28/2023 11:59 PM EDT Patient Name: Jennifer Mendes Date of : 1980 Date of Service: 05/28/2023 Facility: [facility] Type of Visit: Skilled Visit Subjective Jennifer Mendes is a 42 y.o. female seen today at [facility] facility for therapy visit. Jennifer is in [...] BY: Butch Oliva DO documented in this encounterTr[facility]03-12-2024 History of Present illness Narrative* Megan Cash APRN-NATUROPATHIC ONCOLOGY PROVIDER - 05/18/2023 11:59 PM EDT Images from the original note were not included. Patient Name: Jennifer Mendes Date of : 1980 Date of Service: 05/18/2023 Facility: [facility] Type of Visit: Skilled Visit Subjective Jennifer Nini Mendes is a 42 y.o. female seen today at [facility] facility for Chief Complaint Patient presents with [...] Anemia Anxiety Arthritis Back pain Bipolar disorder ([facility]) Depression Latent tuberculosis infection Obesity Pneumonia Substance abuse ([facility]) Past Surgical History: Procedure Laterality Date FRACTURE [...] episode mixed, current episode severity unspecified (CMS-HCC) 3. Primary osteoarthritis of both hips 4. Schizophrenic disorder ([facility]) 5. Class 3 severe obesity due to excess calories with serious comorbidity and body mass index (BMI)of 60.0 to 69.9 in adult ([facility]) 6. Full code status Spinal stenosis of lumbar region Awaiting Medicaid approval to pursue pain management. Referral done, sent to [facility]. -Pain controlled with Oxycodone, [...] Napoles APRN-CNP 05/24/23 1753 documented in this encounterTr[facility]03-08-[facility]24 History of Present illness Narrative* Butch Oliva, - 05/14/2023 6:37 PM EST Patient Name: Jennifer Mendes Date of : 1980 Date of Service: 05/14/2023 Facility: [facility] Type of Visit: Skilled Visit Subjective Jennifer Mendes is a 42 y.o. female seen today at [facility] for therapy visit. Jennifer is in therapy. [...] current episode mixed, current episode severity unspecified ([facility]) 6. Schizophrenic disorder ([facility]) Medically stable. Continue therapy to reach MMI. Await approval for medicaid so she can go to pain management. Other medications reviewed and are medically necessary. ELECTRONICALLY SIGNED BY: Butch Oliva DO documented in this encounterTr[facility] System02-23-2024 History of Present illness Narrative* Butch Oliva DO - 04/30/2023 5:37 PM EST Patient Name: Jennifer Mendes Date of : 1980 Date of Service: 04/30/2023 Facility: [facility] Type of Visit: Admission H&P Subjective Jennifer Mendes is a 42 y.o. female seen today at [facility] facility for admission H&P. jennifer presents to [facility] from the [facility] where she was treated for intractable back [...] scheduled to see a neurosurgeon up in [place] but then her insurance lapsed and the [...] Abdominal wall cellulitis Anemia Anxiety Bipolar disorder ([facility]) Depression Latent tuberculosis infection Pneumonia Past [...] current episode mixed, current episode severity unspecified ([facility]) 4. Anxiety 5. Primary osteoarthritis of both hips 6. TB lung, latent 7. Schizophrenic disorder ([facility]) 8. Class 3 severe obesity due to excess calories without serious comorbidity with body mass index (BMI) of 50.0 to 59.9 in adult ([facility]) Admit to [facility] for therapy. She is motivated to improve. She will need pain management and maybe neurosurgery. Fair to good rehab potential. Full code. Continue medications from the hospital. She was treated for TB with INH per pt. Continue doxycycline for syphilis. ELECTRONICALLY SIGNED BY: Butch Oliva DO documented in this encounterTr[facility] System04-11-2023 NoteCONSULTATION CONSULTATION DATE: 06/16/2022 TO: TRENTON Johnston [...] our patients to inform us about any cfea-sjj-omulkhl medications or herbal remedies/nutritional supplements/alternative remedies. 2. [...] treatment options with their primary care provider.[id number] NotePROCEDURE: XR HIP LT 2 3V W PELVIS HISTORY: Pain ; left hip pain after falling COMPARISON: None. FINDINGS: BONES:Complete loss of the hip joint spaces bilaterally with subchondral sclerosis, jpxa-ct-etck articulation, and remodeling of the femoral heads and acetabulum. SOFT TISSUES:No visible soft tissue swelling. EFFUSION:None visible. OTHER: Negative. IMPRESSION: 1. No acute bone abnormality. 2. Advanced degenerative changes of hip joints bilaterally. Electronically authenticated by: JEAN CARLOS MEDINA Date: 2022-05-21 11:47[facility]* Diagnosis Spinal stenosis of lumbar region, unspecified whether neurogenic claudication present- Primary Syphilis (acquired) Unspecified syphilis Bipolar affective disorder, current episode mixed, current episode severity unspecified ([facility]) Anxiety Anxiety state, unspecified Primary osteoarthritis of both hips TB lung, latent Schizophrenic disorder ([facility]) Unspecified schizophrenia, unspecified condition Class 3 severe obesity due to excess calories without serious comorbidity with body mass index (BMI) of 50.0 to 59.9 in adult ([facility]) [facility] Diagnosis Spinal stenosis of lumbar region, unspecified whether neurogenic claudication present- Primary Bilateral primary osteoarthritis of hip Muscle weakness (generalized) Other abnormalities of gait and mobility Bipolar affective disorder, current episode mixed, current episode severity unspecified ([facility] Schizophrenic disorder ([facility] Unspecified schizophrenia, unspecified condition [facility] Diagnosis Spinal stenosis of lumbar region, unspecified whether neurogenic claudication present- Primary Bipolar affective disorder, current episode mixed, current episode severity unspecified ([facility] Primary osteoarthritis of both hips Schizophrenic disorder ([facility] Unspecified schizophrenia, unspecified condition Class 3 severe obesity due to excess calories with serious comorbidity and body mass index (BMI) of 60.0 to 69.9 in adult ([facility] Full code status [facility] this [facility]* Diagnosis Bilateral primary osteoarthritis of hip- Primary Muscle weakness (generalized) Other abnormalities of gait and mobility Spinal stenosis of lumbar region, unspecified whether neurogenic claudication present [facility]* Diagnosis Pedal edema- Primary Edema Intertrigo Other specified erythematous condition Morbid obesity ([facility] Morbid obesity [facility]* Diagnosis Onset Date Resolution Status Chronic pain acute Generalized anxiety disorder acute Major depressive disorder, recurrent, moderate acute [facility] Work Phone: Evaluation note* Diagnosis Primary [...] region and thigh [facility] Diagnosis Primary osteoarthritis of both hips- Primary Primary localized osteoarthrosis, pelvic region and thigh [facility] assessment information [facility] Work Phone: Evaluation note* Diagnosis Pain in left hip Pain in joint, pelvic region and thigh Pain in right hip Pain in joint, pelvic region and thigh documented [facility] this encounter [facility] Diagnosis Cutaneous candidiasis- Primary Morbid obesity ([facility] Morbid obesity Muscle weakness (generalized) Other abnormalities of gait and mobility Spinal stenosis of lumbar region, unspecified whether neurogenic claudication present documented [facility] this encounter [facility]ructionsNot on filedocumented in this encounter [facility]* Attachments The following attachments cannot be sent through Care Everywhere. * Bipolar disorder (Nigerian) documented in [facility] SystemInstructionsNot on file documented in this encounterProMedisc [facility] SystemInstructionsNot on file documented in this encounterProAnd[facility] SystemInstructionsNot on file documented in this encounterProKing[facility] OhioReason for referral (narrative)* Diagnostic Procedure Only (Routine) - Closed Specialty Diagnoses / Procedures Referred By Nazario sanches Referred To Contact XR IMAGING Diagnoses Pain in left hip Pain in right hip Procedures XR HIP BILATERAL 5V PEL/AP/LAT EACH HIP RADEX HIPS BILATERAL WITH PELVIS MINIMUM 5 VIEWS Tang Sloan PA-C [address] [place] [address] [place] [id number] Referral ID Status Reason Start Date Expiration Date V isits Requested Visits Authorized [id number] Closed Auto-Generate d Referral 08/30/2023 09/28/2024 1 1 [facility] Narrative* Diagnostic Procedure Only (Routine) - Closed Specialty Diagnoses / Procedures Referred By Nazario sanches Referred To Contact XR IMAGING Diagnoses Pain in left hip Pain in right hip Procedures XR HIP BILATERAL 5V PEL/AP/LAT EACH HIP RADEX HIPS BILATERAL WITH PELVIS MINIMUM 5 VIEWS Tang Sloan PA-C [address] [place] [address] [place] [address] Referral ID Status Reason Start Date Expiration Date V isits Requested Visits Authorized [id number] Closed Auto-Generate d Referral 08/30/2023 09/28/2024 1 1 [facility] Summary Purpose Family History No Family History Records FoundNo Family History Records FoundNo Family History Records FoundNo Family History Records FoundNo Family History Records Found Advance Directives Latest Code Status on File Code Status Date Activated Date Inactivated Comments Full Code 01/24/2023 10:50 AM 02/05/2023 6:22 PM Advance Directive Response Recorded Date/ Time Advance Directives No June 06 9:38am Date Activated Date Inactivated Comments 01/24/2023 10:50 AM 02/05/2023 6:22 PM Chief Complaint and Reason for Visit Chief [...] HIGH COMPLEX 45 MINS Tang Sloan PA-C [address] [place] [address] [facility] [address] [place] [address] Referral ID Status Reason Start Date Expiration Date Visits Requested Visits Authorized [id number] Pending Review Auto-Generat ed Referral 09/03/2023 09/02/2024 1 1 Specialty Diagnoses / Procedures Referred By Nazario sanches Referred To Contact XR IMAGING Diagnoses Pain in left hip Pain in right hip Procedures XR HIP BILATERAL 5V PEL/AP/LAT EACH HIP RADEX HIPS BILATERAL WITH PELVIS MINIMUM 5 VIEWS Tang Sloan PA-C [address] [place] [address] [place] [address] Referral ID Status Reason Start Date Expiration Date V isits Requested Visits Authorized [id number] Closed Auto-Generate d Referral 08/30/2023 09/28/2024 1 1 Additional Source Comments INFORMATION SOURCE (unrecogn ized section and content) DATE CREATED AUTHOR 07/08/2022 [facility] DATE CREATED AUTHOR AUTHOR'S ORGANIZ ATION 07/09/2023 [facility] DATE CREATED AUTHOR AUTHOR'S ORGANIZ ATION 09/09/2023 [facility] DATE CREATED AUTHOR AUTHOR'S ORGANIZ ATION 09/24/2023 [facility] DATE CREATED AUTHOR AUTHOR'S ORGANIZ ATION 10/27/2023 [facility] Care Teams (unrecognized sec tion and content) Team Status: Active Member Role Status Dates NON STAFF Primary Care Provider Active Team Status: Inactive Member Role Status Dates NON STAFF Primary Care Provider Active Start: October 22, 2023 End: October 22, 2023 Mazin Moreno DO Attending Provider Active Start : October 22, 2023 End: October 22, 2023 Messaging Architect Relationship Specialty Start Date End Date No Pcp, [place] [address] PCP - General Family Medicine 10/30/22 Messaging Architect Relationship Specialty Start Date End Date No Pcp, [place] [address] PCP - General Family Medicine 10/30/22 Messaging Architect Relationship Specialty Start Date End Date No Pcp, [place] [address] PCP - General Family Medicine 10/30/22 Messaging Architect Relationship Specialty Start Date End Date No Pcp, [place] [address] PCP - General Family Medicine 10/30/22 Messaging Architect Relationship Specialty Start Date End Date No Pcp, [place] [address] PCP - General Family Medicine 10/30/22 Team [...] ANA MARIA Other Provider Active Start: A pri 2023 End: June 25, 2023 Tawanna Conley RN Other Provider Active Star t: June 22, 2023 End: June 25, 2023 Ree Clemente , ANA MARIA Other Provider Active Start: A pril 2023 End: June 25, 2023 Mary Quach , ANA MARIA Other Provider Active Start: [facility] 2023 End: June 25, 2023 Fercho Granados [...] Jara MD Other Provider Active Start: [facility] 2023 End: June 25, 2023 Haris Sneed [...] End: June 25, 2023 Allison Marin , DO Other Provider Active Start: Ap ril [...] Wilda Vazquez NP Other Provider Active Start: Apr il 2023 End: June 25, 2023 Van Moore MD Other Provider Active Start: June 22, 2023 End: June 25, 2023 Hugo Randolph MD Other Provider Active Start: June 22, 2023 End: June 25, 2023 Team Status: Active Member Role Status Dates NON STAFF Primary Care Provider Active Start: June 23, 2023 Joseph Elisha , MD Admit Provide r, Attending Provider, Other Provider Active Start: June 23, 2023 Messaging Architect Relationship Specialty Start Date End Date ClariceButch robins [address] [facility], [place] [address] PCP - General Family Medicine 06/22/23 Reason for Visit (unrecogniz ed section and content) Reason Comments Intermediate Reason Comments Radiology XR Reason Comments New Pain Reason Comments Injections Hip Pain Specialty Diagnoses / Procedures Referred By Contac t Referred To Contact Orthopedics / ORTHOPAEDIC SURGERY Diagnoses Bilateral USGI Hip injections Procedures SERENA INJECT 1 Tang Sloan PA-C [address] [place] [address] Edward Arita DO [address] [place] [address] Referral ID Status Reason Start Date Expiration Date V isits Requested Visits Authorized [id number] Closed Financial Clearance Not Required 09/30/2023 10/31/2023 1 1 Source Comments (unrecognize d section and content) In the event this informatio n is protected by the Federal Confidentiality of Alcohol and Drug Abuse Patient Records regulations: The Federal rules restrict any use of the information to criminally investigate or prosecute any alcohol or drug abuse patient.[facility] the event this information is protected by the Federal Confidentiality of Alcohol and Drug Abuse Patient Records regulations: The Federal rules restrict any use of the information to criminally investigate or prosecute any alcohol or drug abuse patient.[facility] the event this information is protected by the Federal Confidentiality of Alcohol and Drug Abuse Patient Records regulations: The Federal rules restrict any use of the information to criminally investigate or prosecute any alcohol or drug abuse patient.[facility] the event this information is protected by the Federal Confidentiality of Alcohol and Drug Abuse Patient Records regulations: The Federal rules restrict any use of the information to criminally investigate or prosecute any alcohol or drug abuse patient.[facility] Goals (unrecognized section and content) Goals may [...] BE BASED ON THE PRIMARY CLINICAL RECORDS. [facility]. provides no warranty or guarantee of the accuracy or completeness of information in this document.
[2024-01-09] MEDS: METHYLPREDNISOLONE SOD SUCC PF 125 MG/2 ML VIAL IM (15:16)
[2024-01-09] MEDS: KETOROLAC TROMETHAMINE 60 MG/2 ML VIAL IM (15:17)
[2024-01-09] MEDS: ORPHENADRINE 60 MG/ 2 ML VIAL IM (15:17)
--- NOTE | 2024-01-09 16:57 | ED_ITS ---
HPI HPI - Back Pain/Injury General Chief Complaint: Back Pain/Injury Stated Complaint: BACK PAIN Time Seen by Provider: 01/09/24 14:14 Source: patient Mode of arrival: ambulance Limitations: no limitations History of Present Illness HPI Narrative: The patient have history of chronic back pain supposed to have surgery in the near future she is coming to us with sciatica pain that got worse she mentioned that it is now radiating down to the right side of her thigh she denies any weakness fall or trauma Patient also denies any incontinence of urine or stool Related Data Home Medications ?Medication ?Instructions ?Recorded ?Confirmed aripiprazole 5 mg tablet 5 mg PO DAILY 04/25/23 01/09/24 duloxetine 60 mg capsule,delayed 60 mg PO BID 04/25/23 01/09/24 release (Cymbalta) famotidine 20 mg tablet (Pepcid) 20 mg PO DAILY 04/25/23 01/09/24 acetaminophen 325 mg capsule 650 mg PO Q4H PRN fever or pain 04/26/23 10/22/23 aripiprazole 20 mg tablet (Abilify) 20 mg PO DAILY 04/26/23 01/09/24 lidocaine 4 % topical patch 1 patch topical DAILY 04/26/23 01/09/24 (Aspercreme (lidocaine)) prazosin 5 mg capsule 5 mg PO QPM 04/28/23 01/09/24 docusate sodium 100 mg capsule 100 mg PO DAILY 10/13/23 01/09/24 (Colace) furosemide 20 mg tablet 20 mg PO DAILY 10/13/23 01/09/24 gabapentin 600 mg tablet 600 mg PO TID 10/13/23 01/09/24 phentermine 37.5 mg tablet 37.5 mg PO DAILY 10/13/23 01/09/24 (Adipex-P) polyethylene glycol 3350 17 gram 17 g PO DAILY 10/13/23 01/09/24 oral powder packet (Miralax) trazodone 50 mg tablet 50 mg PO DAILY 10/13/23 01/09/24 doxycycline hyclate 100 mg tablet 100 mg PO Q12H 01/09/24 01/09/24 Previous Rx's ?Medication ?Instructions ?Recorded clonazepam 1 mg tablet (Klonopin) 1 mg PO Q8H 5 days #15 tabs 04/29/23 oxycodone-acetaminophen 5 mg-325 1 tab PO Q6H PRN Pain 5 days #20 04/29/23 mg tablet tabs diclofenac sodium 75 mg 75 mg PO BID PRN pain #10 tabs 01/09/24 tablet,delayed release orphenadrine citrate 100 mg 100 mg PO BID PRN muscle spasm #10 01/09/24 tablet,extended release tabs prednisone 50 mg tablet 50 mg PO DAILY 3 days #3 tabs 01/09/24 Allergies Allergy/AdvReac Type Severity Reaction Status Date / Time No Known Drug Allergies Allergy Verified 10/12/23 11:27 Opioid HPI Opioid Management Most Recent Opioid Data: Last Pain Scale 8 01/09/24 15:15 01/09/24 Last Pain Intensity 8 04/27/23 09:43 04/27/23 Last MAR Pain Assessment 01/09/24 15:17 Ur Phencyclidine Scrn Negative (NEGATIVE) 10/22/23 06:38 10/06 08/29 Review of Systems ROS Status of ROS 10 or more systems reviewed and unremark able except as noted in history and below [facility] Medical History (Updated 01/09/24 @ 16:57 by Martine Tabor MD) Syphilis ?A53.9 - Syphilis, unspecified (ICD-10) History of lumbar puncture (~04/2023) ?Z98.890 - Other specified postprocedural states (ICD-10) UTI (urinary tract infection) ?N39.0 - Urinary tract infection, site not specified (ICD-10) Pneumonia ?J18.9 - Pneumonia, unspecified organism (ICD-10) Sepsis ?A41.9 - Sepsis, unspecified organism (ICD-10) Somnolence, daytime ?R40.0 - Somnolence (ICD-10) Borderline personality disorder ?F60.3 - Borderline personality disorder (ICD-10) Hypotension ?I95.9 - Hypotension, unspecified (ICD-10) Anemia ?D64.9 - Anemia, unspecified (ICD-10) Insomnia ?G47.00 - Insomnia, unspecified (ICD-10) Bipolar disorder ?F31.9 - Bipolar disorder, unspecified (ICD-10) Anxiety ?F41.9 - Anxiety disorder, unspecified (ICD-10) Panic attacks ?F41.0 - Panic disorder [episodic paroxysmal anxiety] (ICD-10) COVID-19 ?U07.1 - COVID-19 (ICD-10) Dyspnea on exertion ?R06.09 - Other forms of dyspnea (ICD-10) Dizziness ?R42 - Dizziness and giddiness (ICD-10) Restless leg ?G25.81 - Restless legs syndrome (ICD-10) Heartburn ?R12 - Heartburn (ICD-10) Difficulty in walking ?R26.2 - Difficulty in walking, not elsewhere classified (ICD-10) senior care resident (~05/2023) ?Z78.9 - Other specified health status (ICD-10) Pelvic pain ?R10.2 - Pelvic and perineal pain (ICD-10) Menorrhagia ?N92.0 - Excessive and frequent menstruation with regular cycle (ICD-10) Bilateral primary osteoarthritis of hip ?M16.0 - Bilateral primary osteoarthritis of hip (ICD-10) Degenerative lumbar spinal stenosis ?M48.061 - Spinal stenosis, lumbar region without neurogenic claudication (ICD-10) Syphilis (acquired) ?A53.9 - Syphilis, unspecified (ICD-10) Bipolar 1 disorder ?F31.9 - Bipolar disorder, unspecified (ICD-10) Anxiety disorder ?F41.9 - Anxiety disorder, unspecified (ICD-10) Abnormal uterine bleeding (AUB) ?N93.9 - Abnormal uterine and vaginal bleeding, unspecified (ICD-10) Schizoaffective disorder ?F25.9 - Schizoaffective disorder, unspecified (ICD-10) Major depressive disorder, recurrent ?F33.9 - Major depressive disorder, recurrent, unspecified (ICD-10) Chronic bilateral low back pain ?M54.50 - Low back pain, unspecified (ICD-10) ?G89.29 - Other chronic pain (ICD-10) Degenerative arthritis of hip ?M16.9 - Osteoarthritis of hip, unspecified (ICD-10) Tuberculosis ?A15.9 - Respiratory tuberculosis unspecified (ICD-10) Herniated disc Arthritis ?M19.90 - Unspecified osteoarthritis, unspecified site (ICD-10) MRSA (methicillin resistant Staphylococcus aureus) ?A49.02 - Methicillin resistant Staphylococcus aureus infection, unspecified site (ICD-10) Staph infection ?B95.8 - Unspecified staphylococcus as the cause of diseases classified elsewhere (ICD-10) Ectopic ?O00.90 - Unspecified ectopic without intrauterine (ICD- 10) Surgical History (Updated 10/12/23 @ 11:32 by Nini Todd NP) History of incision and drainage ?Z98.890 - Other specified postprocedural states (ICD-10) H/O laparoscopy ?Z98.890 - Other specified postprocedural states (ICD-10) S/P epidural steroid injection ?Z92.241 - Personal history of systemic steroid therapy (ICD-10) Hx of tonsillectomy ?Z90.89 - Acquired absence of other organs (ICD-10) Family History Other Family history of cancer Social History (Updated 10/22/23 @ 07:12 by Madison Avila) Within the past year, how often did you have a drink containing alcohol: never Score interpretation: A score less than 3 is consistent with normal alcohol consumption. Smoking status: Current some day smoker Non-prescribed substance use: denies use and cannabis (any form) Highest level of school completed/degree received: high school graduate Little interest or pleasure in doing things: not at all Feeling down, depressed, or hopeless: not at all Feel stressed/tense/nervous/anxious/difficulty sleeping: very much Exam Narrative Exam Narrative: Nurses notes and vital signs reviewed and patient is not hypoxic. General: Well-appearing and in no apparent distress. Skin: Warm, dry, no pallor noted. No rash. Head: Normocephalic, atraumatic. Neck: Supple, non-tender. Eye: Pupils are equal, round and EOMI. No scleral icterus. Ears, Nose, Mouth, and Throat: TM are clear, no nasal mucosal hypertrophy. Oral mucosa is moist, no posterior oropharynx erythema, uvula is mid-line Cardiovascular: Regular Rate and Rhythm without murmur, gallop or rub. Respiratory: No accessory muscle use or respiratory distress. Lungs are clear to auscultation, no wheezing, rales or rhonchi Chest Wall: no tenderness Back: The patient have no intervertebral line tenderness she have paraspinal muscle tenderness toward the hip there was no weakness detected on examination Musculoskeletal: normal ROM, no calf or popliteal tenderness, no lower extremity edema/swelling GI: Abdomen is soft, non-distended. Normal bowel sounds. No masses appreciated. No tenderness to palpation. No rebound, guarding, or rigidity noted. Neurological: A&O x4. No cranial nerve dysfunction observed. . Moves all extremities. Sensation intact. Psychiatric: Cooperative and interactive. Normal mood and affect. Constitutional Vital Signs, click to edit/add: Last Vital Signs Temp 98.2 F 01/09/24 14:07 Pulse 88 01/09/24 14:07 Resp 18 01/09/24 14:07 BP 125/95 H 01/09/24 14:07 Pulse Ox 97 01/09/24 14:07 O2 Del Method Room Air 01/09/24 14:07 Course Vital Signs Vital signs: Vital Signs Temperature 98.2 F 01/09/24 14:07 Pulse Rate 88 01/09/24 14:07 Respiratory Rate 18 01/09/24 14:07 Blood Pressure 125/95 H 01/09/24 14:07 Pulse Oximetry 97 01/09/24 14:07 Oxygen Delivery Method Room Air 01/09/24 14:07 Temperature 98.2 F 01/09/24 14:07 Pulse Rate 88 01/09/24 14:07 Respiratory Rate 18 01/09/24 14:07 Blood Pressure 125/95 H 01/09/24 14:07 Pulse Oximetry 97 01/09/24 14:07 Oxygen Delivery Method Room Air 01/09/24 14:07 MDM - Back Pain/Injury MDM Narrative Medical decision making narrative: The patient presentation showing chronic back pain with some acute exacerbation over the chronic baseline sciatica pain No alarming symptoms and the patient was feeling much better after being treated in the ER with Toradol prednisone and [place] She was discharged home with Voltaren and Norflex in addition to prednisone for 3 days The patient is to follow up with primary care physician in next 2-3 days or to return to the emergency department should any of the signs or symptoms worsen or new symptoms develop. The patient agrees with the following Diagnosis and Treatment plan and the patient will be discharged home. Discharge Plan Discharge Chief Complaint: Back Pain/Injury Clinical Impression: Sciatica Patient Disposition: Home, Self-Care Time of Disposition Decision: 16:57 Condition: Good Prescriptions / Home Meds: New diclofenac sodium 75 mg tablet,delayed release (DR/EC) 75 mg PO BID PRN (Reason: pain) Qty: 10 0RF prednisone 50 mg tablet 50 mg PO DAILY 3 Days Qty: 3 0RF orphenadrine citrate 100 mg tablet extended release 100 mg PO BID PRN (Reason: muscle spasm) Qty: 10 0RF Discontinued ibuprofen 800 mg tablet 800 mg PO TID No Action aripiprazole 5 mg tablet 5 mg PO DAILY duloxetine [Cymbalta] 60 mg capsule,delayed release(DR/EC) 60 mg PO BID famotidine [Pepcid] 20 mg tablet 20 mg PO DAILY aripiprazole [Abilify] 20 mg tablet 20 mg PO DAILY lidocaine [Aspercreme (lidocaine)] 4 % adhesive patch,medicated 1 patch topical DAILY Rx Instructions: may leave on for up to 12 hrs acetaminophen 325 mg capsule 650 mg PO Q4H PRN (Reason: fever or pain) prazosin 5 mg capsule 5 mg PO QPM oxycodone-acetaminophen 5-325 mg Tablet 1 tab PO Q6H PRN (Reason: Pain) 5 Days Qty: 20 0RF clonazepam [Klonopin] 1 mg tablet 1 mg PO Q8H 5 Days Qty: 15 0RF furosemide 20 mg tablet 20 mg PO DAILY gabapentin 600 mg tablet 600 mg PO TID trazodone 50 mg tablet 50 mg PO DAILY phentermine [Adipex-P] 37.5 mg tablet 37.5 mg PO DAILY Rx Instructions: must administer 30 minutes before or 1-2 hours after breakfast polyethylene glycol 3350 [Miralax] 17 gram powder in packet 17 g PO DAILY docusate sodium [Colace] 100 mg capsule 100 mg PO DAILY doxycycline hyclate 100 mg tablet 100 mg PO Q12H Print Language: Yi Instructions: Sciatica (ED), Acute Low Back Pain (ED) Referrals: ELLIOTT OLIVA [Primary Care Provider] - 1 week
== END 2024-01-09 19:34 | disposition home or self-care (01) ==
PROVIDERS: Emergency Provider Emergency Medicine; PCP Family Medicine
DX: M54.31 Sciatica, right side (principal); F17.200 Nicotine dependence, unspecified, uncomplicated
CPT/HCPCS: 96372; 99284; J1885; J2360; J2919